=== PATIENT | male | born 1950 | race Caucasian/White ===

== ENCOUNTER → 2016-11-27 | Outpatient (CLI) | payer MEDICARE, BC ==
[2016-11-27 09:30] LABS: CH 31.7; CHCM 33.3; HCT 48.3 % (39.0-53.0); HDW 2.81; HGB 15.8 gm/dL (13.0-17.5); MCH 31.4 pg (25.0-35.0); MCHC 32.7 g/dL (31.0-37.0); MCV 95.9 fL (80.0-100.0); Mean Platelet Volume 7.1; RBC 5.04 m/uL (4.30-5.90); RDW 14.3 % (11.5-15.5); WBC 4.8 k/uL (3.8-10.6)
[2016-11-27 10:33] LABS: Creatinine,Urine Random 87.3 mg/dL
[2016-11-27 10:56] LABS: Calcium 9.8 mg/dL (8.4-10.2); Magnesium 1.9 mg/dL (1.6-2.3); Phosphorous 3.2 mg/dL (2.5-4.5); Potassium 4.5 mmol/L (3.5-5.1)
[2016-11-27 11:06] LABS: % Iron Saturation 32.1 % (20-50)
== END | disposition home or self-care (01) ==
LOC: LABWHC1 08:43
PROVIDERS: ATTEND Nurse Practitioner Family
DX: N18.3 Chronic kidney disease, stage 3 (moderate) (principal); N25.81 Secondary hyperparathyroidism of renal origin; E55.9 Vitamin D deficiency, unspecified; M10.9 Gout, unspecified; D63.1 Anemia in chronic kidney disease
CPT/HCPCS: 36415; 80048; 82306; 82570; 82728; 83540; 83550; 83735; 83970; 84100; 84156; 84550; 85027

== ENCOUNTER 2017-01-24 08:04 | Day surgery (SDC) | payer MEDICARE, BC ==
[2017-01-21 14:21] VITALS: BMI 38.0
[~2017-01-24 08:04] MED LIST: LACTATED RINGERS 1,000 ML IV SCH; LIDOCAINE 1% 20 ML VIAL (10MG/ML) FOR IV START INTRADERMA PRN
[2017-01-24 08:36] VITALS: TEMP 97.1
[2017-01-24] MEDS ORDERED: PROPOFOL 10 MG/ML 20 ML VIAL IV ONE (09:00)
[2017-01-24] MEDS ORDERED: LIDOCAINE 1% INJ 10MG/ML (20 ML MDV) ONE (09:00)
[2017-01-24 09:35] VITALS: RESP 18
--- NOTE | 2017-01-24 09:40 | P.OP ---
Date of Procedure: 01/24/17 Preoperative Diagnosis: Screening for colon cancer Postoperative Diagnosis: Diverticulosis Internal hemorrhoids Procedure(s) Performed: COlonoscopy Implants: Anesthesia: HEATHER Surgeon: Meena Mancera Pathology: none sent Condition: stable Indications for Procedure: Operative Findings: Description of Procedure: The patient was brought to the endoscopy suite and placed in lateral decubitus position. IV sedation was given as per anesthesia team. A timeout was performed to verify correct patient and correct procedure.Perianal examination did not reveal any external hemorrhoids. Digital rectal examination was performed.Nomral prostate. A well-lubricated endoscope was passed per rectally and was gradually advanced beyond the sigmoid colon, splenic flexure, transverse colon, hepatic flexure and cecum. The ileocecal valve was visualized. Extesive colonic diverticulos was noted without any evidence of diverticulitis. Scope was gradually withdrawn inspecting all the mucosal surfaces. NO polyp was seen. Bowel prep was fair. No other polyps or masses noted. Retroflexed in the rectum and grade 2 internal hemorrhoids were noted which was not bleeding at this time. The scope was gradually withdrawn. Patient tolerated the procedure well and was taken to post anesthesia care unit in stable condition.next colonscopy is reccomended at 5 years due to prep Plan - Discharge Summary New Discharge Prescriptions: No Action Pravastatin Sodium [Pravachol] 40 mg PO HS amLODIPine [Norvasc] 5 mg PO DAILY Apixaban [Eliquis] 5 mg PO BID ALPRAZolam [Xanax] 1 mg PO HS Aspirin [Adult Low Dose Aspirin EC] 81 mg PO DAILY Latanoprost Ophth [Xalatan 0.005%] 1 drops BOTH EYES HS ml Metoprolol Tartrate [Lopressor] 12.5 mg PO BID Lisinopril [Zestril] 20 mg PO DAILY Discharge Medication List ALPRAZolam [Xanax] 1 mg PO HS 04/15/15 [History] Apixaban [Eliquis] 5 mg PO BID 04/15/15 [History] Pravastatin Sodium [Pravachol] 40 mg PO HS 04/15/15 [History] amLODIPine [Norvasc] 5 mg PO DAILY 04/15/15 [History] Aspirin [Adult Low Dose Aspirin EC] 81 mg PO DAILY 04/09/16 [History] Latanoprost Ophth [Xalatan 0.005%] 1 drops BOTH EYES HS ml 04/13/16 [Rx] Lisinopril [Zestril] 20 mg PO DAILY 01/21/17 [History] Metoprolol Tartrate [Lopressor] 12.5 mg PO BID 01/21/17 [History]
[2017-01-24 09:53] VITALS: BP 117/79; PULSE 89
== END 2017-01-24 10:15 | disposition home or self-care (01) ==
LOC: ORWHC2ENDO 08:04
PROVIDERS: ATTEND Surgery
DX: Z12.11 Encounter for screening for malignant neoplasm of colon (principal); K57.30 Diverticulosis of large intestine without perforation or abscess without bleeding; K64.1 Second degree hemorrhoids; I10 Essential (primary) hypertension; E78.5 Hyperlipidemia, unspecified; I25.10 Atherosclerotic heart disease of native coronary artery without angina pectoris; I48.91 Unspecified atrial fibrillation; I25.2 Old myocardial infarction; Z79.01 Long term (current) use of anticoagulants; Z79.82 Long term (current) use of aspirin; Z79.899 Other long term (current) drug therapy; Z95.5 Presence of coronary angioplasty implant and graft; Z96.653 Presence of artificial knee joint, bilateral; Z96.643 Presence of artificial hip joint, bilateral; Z80.3 Family history of malignant neoplasm of breast
CPT/HCPCS: G0121; J2001; J2704

== ENCOUNTER 2017-01-28 08:37 | Inpatient (IN) | payer MEDICARE, BC ==
[2017-01-28] MEDS ORDERED: NITROGLYCERIN OINT 1 INCH/GM PACKET TOPICAL STA (08:57)
[2017-01-28] MEDS ORDERED: ASPIRIN 81 MG CHEW PO STA (08:57)
--- NOTE | 2017-01-28 09:00 | ED ---
General Adult HPI - General Chief complaint: Chest Pain Stated complaint: chest pain Time Seen by Provider: 01/28/17 08:45 Source: patient, RN notes reviewed Mode of arrival: wheelchair Limitations: no limitations - History of Present Illness Initial comments: Patient is a pleasant 4 he 7-year-old male presenting to the emergency Department with chest discomfort. Discomfort was noticed when he woke up. Discomfort has now resolved. Patient states there is minimal associated shortness of breath. Patient does admit to having some palpitations. Patient does have a history of atrial fibrillation however has not been enough for many months and was taken off his amiodarone months ago. Patient still takes Eliquis. Patient's blood pressure was elevated this morning, 170/117. Patient has not yet taken his blood pressure medication. - Related Data Home Medications Medication Instructions Recorded Confirmed ALPRAZolam [Xanax] 1 mg PO HS 04/15/15 01/28/17 Apixaban [Eliquis] 5 mg PO BID 04/15/15 01/28/17 Pravastatin Sodium [Pravachol] 40 mg PO HS 04/15/15 01/28/17 amLODIPine [Norvasc] 5 mg PO DAILY 04/15/15 01/28/17 Aspirin [Adult Low Dose Aspirin EC] 81 mg PO DAILY 04/09/16 01/28/17 Lisinopril [Zestril] 20 mg PO DAILY 01/21/17 01/28/17 HYDROcodone/APAP 5-325MG [[place] 1 tab PO Q6H PRN 01/28/17 01/28/17 5-325] Metoprolol Succinate (ER) [Toprol 12.5 mg PO BID 01/28/17 01/28/17 Xl] Previous Rx's Medication Instructions Recorded Latanoprost Ophth [Xalatan 0.005%] 1 drops BOTH EYES HS ml 04/13/16 Allergies Allergy/AdvReac Type Severity Reaction Status Date / Time No Known Allergies Allergy Verified 01/28/17 09:35 Review of Systems ROS Statement: Those systems with pertinent positive or pertinent negative responses have been documented in the HPI. ROS Other: All systems not noted in ROS Statement are negative. Constitutional: Denies: fever Eyes: Denies: eye pain ENT: Denies: ear pain Respiratory: Reports: dyspnea. Denies: cough Cardiovascular: Reports: chest pain, palpitations Endocrine: Denies: fatigue Gastrointestinal: Denies: abdominal pain Genitourinary: Denies: dysuria Musculoskeletal: Denies: back pain Skin: Denies: rash Neurological: Denies: weakness Past Medical History Past Medical History: Atrial Fibrillation, Coronary Artery Disease (CAD), Chest Pain / Angina, Hyperlipidemia, Hypertension, Myocardial Infarction ([place]) Additional Past Medical History / Comment(s): A-FIB CONTROLLED AT THIS TIME Last Myocardial Infarction Date:: 2010 History of Any Multi-Drug Resistant Organisms: None Reported Past Surgical History: Heart Catheterization With Stent, Joint Replacement, Orthopedic Surgery, Tonsillectomy Additional Past Surgical History / Comment(s): BILAT TKA AND DANIELLE. BILAT KNEE SCOPES. COLONOSCOPY Past Anesthesia/Blood Transfusion Reactions: No Reported Reaction Date of Last Stent Placement:: 2010 Past Psychological History: Anxiety Smoking Status: Never smoker Past Alcohol Use History: Occasional Past Drug Use History: None Reported - Past Family History Mother Family Medical History: Cancer General Exam Limitations: no limitations General appearance: alert, in no apparent distress Head exam: Present: atraumatic Eye exam: Present: normal appearance, PERRL ENT exam: Present: normal oropharynx Neck exam: Present: normal inspection Respiratory exam: Present: normal lung sounds bilaterally Cardiovascular Exam: Present: tachycardia, irregular rhythm Expanded Peripheral pulses: 2+: Radial (R), Radial (L), Posterior Tibialis (R), Posterior Tibialis (L) GI/Abdominal exam: Present: soft. Absent: tenderness Extremities exam: Present: normal inspection. Absent: pedal edema, calf tenderness Neurological exam: Present: alert Psychiatric exam: Present: normal affect, normal mood Skin exam: Present: normal color Course Vital Signs 01/28/17 01/28/17 01/28/17 08:47 09:30 09:44 Temperature 97.5 F L 98.8 F Pulse Rate 110 H 100 94 Respiratory 18 18 15 Rate Blood Pressure 162/103 142/60 O2 Sat by Pulse 92 L 98 Oximetry 01/28/17 10:30 Temperature Pulse Rate 101 H Respiratory 20 Rate Blood Pressure 152/67 O2 Sat by Pulse 96 Oximetry EKG Findings - EKG Comments: EKG Findings:: A. fib with RVR, rate 102. QRS 96. QT 354. QTC 461. Left axis. Septal Q waves. No acute ST change. Medical Decision Making - Medical Decision Making Patient reevaluated and resting comfortably in bed. Heart rate between 100-110 and remains in atrial fibrillation. Patient updated on results and plan. Case was discussed in detail with Dr. angelo, who will admit for Dr. cooley - Lab Data Result diagrams: 01/28/17 09:15 01/28/17 09:15 Lab Results 01/28/17 01/28/17 01/28/17 Range/Units 09:15 09:15 09:15 WBC 5.2 (3.8-10.6) k/uL RBC 5.21 (4.30-5.90) m/uL Hgb 16.4 (13.0-17.5) gm/dL Hct 47.5 (39.0-53.0) % MCV 91.2 (80.0-100.0) fL MCH 31.5 (25.0-35.0) pg MCHC 34.6 (31.0-37.0) g/dL RDW 13.6 (11.5-15.5) % Plt Count 131 L (150-450) k/uL Neutrophils % 68 % Lymphocytes % 18 % Monocytes % 8 % Eosinophils % 4 % Basophils % 1 % Neutrophils # 3.5 (1.3-7.7) k/uL Lymphocytes # 0.9 L (1.0-4.8) k/uL Monocytes # 0.4 (0-1.0) k/uL Eosinophils # 0.2 (0-0.7) k/uL Basophils # 0.0 (0-0.2) k/uL PT (9.0-12.0) sec INR (<1.2) APTT (22.0-30.0) sec Sodium 145 (137-145) mmol/L Potassium 4.1 (3.5-5.1) mmol/L Chloride 112 H (98-107) mmol/L Carbon Dioxide 19 L (22-30) mmol/L Anion Gap 14 mmol/L BUN 35 H (9-20) mg/dL Creatinine 1.79 H (0.66-1.25) mg/dL Est GFR (MDRD) Af Amer 46 (>60 ml/min/1.73 sqM) Est GFR (MDRD) Non-Af 38 (>60 ml/min/1.73 sqM) Glucose 95 (74-99) mg/dL Calcium 9.1 (8.4-10.2) mg/dL Magnesium 1.6 (1.6-2.3) mg/dL Total Bilirubin 0.4 (0.2-1.3) mg/dL AST 19 (17-59) U/L ALT 33 (21-72) U/L Alkaline Phosphatase 60 (38-126) U/L Total Creatine Kinase 97 (55-170) U/L CK-MB (CK-2) 1.5 (0.0-2.4) ng/mL CK-MB (CK-2) Rel Index 1.5 Troponin I <0.012 (0.000-0.034) ng/mL NT-Pro-B Natriuret Pep pg/mL Total Protein 7.1 (6.3-8.2) g/dL Albumin 4.2 (3.5-5.0) g/dL 01/28/17 01/28/17 Range/Units 09:15 09:15 WBC (3.8-10.6) k/uL RBC (4.30-5.90) m/uL Hgb (13.0-17.5) gm/dL Hct (39.0-53.0) % MCV (80.0-100.0) fL MCH (25.0-35.0) pg MCHC (31.0-37.0) g/dL RDW (11.5-15.5) % Plt Count (150-450) k/uL Neutrophils % % Lymphocytes % % Monocytes % % Eosinophils % % Basophils % % Neutrophils # (1.3-7.7) k/uL Lymphocytes # (1.0-4.8) k/uL Monocytes # (0-1.0) k/uL Eosinophils # (0-0.7) k/uL Basophils # (0-0.2) k/uL PT 11.3 (9.0-12.0) sec INR 1.1 (<1.2) APTT 26.0 (22.0-30.0) sec Sodium (137-145) mmol/L Potassium (3.5-5.1) mmol/L Chloride (98-107) mmol/L Carbon Dioxide (22-30) mmol/L Anion Gap mmol/L BUN (9-20) mg/dL Creatinine (0.66-1.25) mg/dL Est GFR (MDRD) Af Amer (>60 ml/min/1.73 sqM) Est GFR (MDRD) Non-Af (>60 ml/min/1.73 sqM) Glucose (74-99) mg/dL Calcium (8.4-10.2) mg/dL Magnesium (1.6-2.3) mg/dL Total Bilirubin (0.2-1.3) mg/dL AST (17-59) U/L ALT (21-72) U/L Alkaline Phosphatase (38-126) U/L Total Creatine Kinase (55-170) U/L CK-MB (CK-2) (0.0-2.4) ng/mL CK-MB (CK-2) Rel Index Troponin I (0.000-0.034) ng/mL NT-Pro-B Natriuret Pep 621 pg/mL Total Protein (6.3-8.2) g/dL Albumin (3.5-5.0) g/dL - Radiology Data Radiology results: image reviewed (Chest x-ray shows no acute process) Disposition Clinical Impression: Chest pain, Atrial fibrillation Disposition: ADMITTED IP TO THIS HOSP Referrals: Giovani Doll MD [Primary Care Provider] - 1-2 days Decision Time: 11:36
--- NOTE | 2017-01-28 09:36 | XR ---
EXAMINATION TYPE: XR chest 2V DATE OF EXAM: 01/28/2017 COMPARISON: 04/13/2016 TECHNIQUE: PA and lateral views submitted. HISTORY: Chest pain FINDINGS: The lungs are clear and there is no pneumothorax, pleural effusion, or focal pneumonia. Hypertrophi c and degenerative change of the spine. IMPRESSION: 1. No acute process.
[2017-01-28 09:40] LABS: Basophils % (A) 1 %; CH 31.4; CHCM 34.6; Eosinophils # (A) 0.2 k/uL (0-0.7); Eosinophils % (A) 4 %; HCT 47.5 % (39.0-53.0); HDW 2.96; HGB 16.4 gm/dL (13.0-17.5); Luc % (Auto) 2; Lymphocytes # (A) 0.9 k/uL (1.0-4.8); Lymphocytes % (A) 18 %; MCH 31.5 pg (25.0-35.0); MCHC 34.6 g/dL (31.0-37.0); MCV 91.2 fL (80.0-100.0); Mean Platelet Volume 7.8; Monocytes # (A) 0.4 k/uL (0-1.0); Monocytes % (A) 8 %; Neutrophils # (A) 3.5 k/uL (1.3-7.7); Neutrophils % (A) 68 %; RBC 5.21 m/uL (4.30-5.90); RDW 13.6 % (11.5-15.5); WBC 5.2 k/uL (3.8-10.6)
[2017-01-28 09:44] LABS: Calcium 9.1 mg/dL (8.4-10.2); Magnesium 1.6 mg/dL (1.6-2.3); Potassium 4.1 mmol/L (3.5-5.1); Total Bilirubin 0.4 mg/dL (0.2-1.3); Total Protein 7.1 g/dL (6.3-8.2)
[2017-01-28 09:47] LABS: INR 1.1 (<1.2); Prothrombin Time 11.3 sec (9.0-12.0)
[2017-01-28 10:09] LABS: Creatine Kinase 97 U/L (55-170)
[2017-01-28 10:20] LABS: Creatine Kinase MB 1.5 ng/mL (0.0-2.4); Troponin I <0.012 ng/mL (0.000-0.034)
[2017-01-28] MEDS ORDERED: NITROGLYCERIN SL TABS 0.4 MG TAB SUBLINGUAL PRN (11:36)
[2017-01-28] MEDS: NITROGLYCERIN OINT 1 INCH/GM PACKET TOPICAL SCH ×3 (13:41→22:02)
[2017-01-28] MEDS ORDERED: HYDROcodone/APAP 5-325MG 1 EACH TAB PO PRN (14:32)
--- NOTE | 2017-01-28 14:40 | P.CRDCN ---
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 fib presented to the hospital because he was not feeling well. She woke up this morning complaining of chest discomfort in the mid of the chest without any radiation. He took his blood pressure and heart rate and he found that his heart rate was above 100 beats per minutes. Because he was not feeling well he presented to the emergency room. In the ER, he was in A. fib with heart rate around 100 beats per minutes. Currently he is pain-free. The EKG showed A. fib with nonspecific changes. We don't have cardiac enzymes on him at this point. 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 Last Myocardial Infarction Date:: 2010 History of Any Multi-Drug Resistant Organisms: None Reported Past Surgical History: Heart Catheterization With Stent, Joint Replacement, Orthopedic Surgery, Tonsillectomy Additional Past Surgical History / Comment(s): BILAT TKA AND DANIELLE, BILAT KNEE SCOPES, COLONOSCOPIES Past Anesthesia/Blood Transfusion Reactions: No Reported Reaction Date of Last Stent Placement:: 2010 Smoking Status: Never smoker - Past Family History Mother Family Medical History: Cancer Additional Family Medical History / Comment(s): Mother of breast cancer at the age of 79yrs. Father Additional Family Medical History / Comment(s): Father had heart problems. He had coronary valve replacement. He at the age of 83 yrs. Medications and Allergies Home Medications Medication Instructions Recorded Confirmed Type ALPRAZolam [Xanax] 1 mg PO HS 04/15/15 01/28/17 History Apixaban [Eliquis] 5 mg PO BID 04/15/15 01/28/17 History Pravastatin Sodium [Pravachol] 40 mg PO HS 04/15/15 01/28/17 History amLODIPine [Norvasc] 5 mg PO DAILY 04/15/15 01/28/17 History Aspirin [Adult Low Dose Aspirin EC] 81 mg PO DAILY 04/09/16 01/28/17 History Lisinopril [Zestril] 20 mg PO DAILY 01/21/17 01/28/17 History HYDROcodone/APAP 5-325MG [[place] 1 tab PO Q6H PRN 01/28/17 01/28/17 History 5-325] Metoprolol Succinate (ER) [Toprol 12.5 mg PO BID 01/28/17 01/28/17 History Xl] Allergies Allergy/AdvReac Type Severity Reaction Status Date / Time No Known Allergies Allergy Verified 01/28/17 09:35 Physical Exam Vitals: Vital Signs Temp Pulse Pulse Resp BP BP Pulse Ox 01/28/17 12:00 97.8 F 100 62 18 121/62 123/74 94 L 01/28/17 10:30 101 H 20 152/67 96 01/28/17 09:44 98.8 F 94 15 142/60 01/28/17 09:30 100 18 98 01/28/17 08:47 97.5 F L 110 H 18 162/103 92 L Intake and Output 01/27/17 01/28/17 01/28/17 22:59 06:59 14:59 Output Total 0 Balance 0 Output: Urine 0 Other: # Bowel Movements 0 Weight 127.006 kg Patient Weight 01/29/17 06:59 Weight 127.006 kg - Constitutional General appearance: no acute distress - Respiratory Respiratory: bilateral: diminished - Cardiovascular Rhythm: irregularly irregular Heart sounds: normal: S1, S2 Results 01/28/17 09:15 01/28/17 09:15 Cardiac Enzymes 01/28/17 01/28/17 Range/Units 09:15 09:15 AST 19 (17-59) U/L CK-MB (CK-2) 1.5 (0.0-2.4) ng/mL Troponin I <0.012 (0.000-0.034) ng/mL Coagulation 01/28/17 Range/Units 09:15 PT 11.3 (9.0-12.0) sec APTT 26.0 (22.0-30.0) sec CBC 01/28/17 Range/Units 09:15 WBC 5.2 (3.8-10.6) k/uL RBC 5.21 (4.30-5.90) m/uL Hgb 16.4 (13.0-17.5) gm/dL Hct 47.5 (39.0-53.0) % Plt Count 131 L (150-450) k/uL Comprehensive Metabolic Panel 01/28/17 Range/Units 09:15 Sodium 145 (137-145) mmol/L Potassium 4.1 (3.5-5.1) mmol/L Chloride 112 H (98-107) mmol/L Carbon Dioxide 19 L (22-30) mmol/L BUN 35 H (9-20) mg/dL Creatinine 1.79 H (0.66-1.25) mg/dL Glucose 95 (74-99) mg/dL Calcium 9.1 (8.4-10.2) mg/dL AST 19 (17-59) U/L ALT 33 (21-72) U/L Alkaline Phosphatase 60 (38-126) U/L Total Protein 7.1 (6.3-8.2) g/dL Albumin 4.2 (3.5-5.0) g/dL Current Medications Generic Name Dose Route Start Last Admin Trade Name Freq PRN Reason Stop Dose Admin Hydrocodone Bitart/Acetaminophen 1 each 01/28/17 14:32 [place] 5-325 PO Q6H PRN Pain Amlodipine Besylate 5 mg 01/29/17 09:00 Norvasc PO DAILY [facility] Apixaban 5 mg 01/28/17 21:00 Eliquis PO BID [facility] Aspirin 325 mg 01/29/17 09:00 Aspirin PO DAILY [facility] Latanoprost 1 drops 01/28/17 21:00 Xalatan 0.005% BOTH EYES HS [facility] Lisinopril 20 mg 01/29/17 09:00 Zestril PO DAILY [facility] Metoprolol Succinate 12.5 mg 01/28/17 21:00 Toprol Xl PO BID [facility] Nitroglycerin 1 inch 01/28/17 12:00 01/28/17 13:41 Nitro-Bid Oint TOPICAL 1 inch Q6HR ASHLEY Administration Nitroglycerin 0.4 mg 01/28/17 11:36 Nitrostat SUBLINGUAL Q5M PRN Chest Pain Non-Formulary Medication 1 mg 01/28/17 21:00 Alprazolam [Xanax] PO HS ASHLEY Non-Formulary Medication 81 mg 01/29/17 09:00 Aspirin [Adult Low Dose Aspirin Ec] PO DAILY ASHLEY Pravastatin Sodium 40 mg 01/28/17 21:00 Pravachol PO HS ASHLEY Intake and Output 01/27/17 01/28/17 01/28/17 22:59 06:59 14:59 Output Total 0 Balance 0 Output: Urine 0 Other: # Bowel Movements 0 Weight 127.006 kg Patient Weight 01/29/17 06:59 Weight 127.006 kg 01/28/17 09:15 01/28/17 09:15 Assessment and Plan Plan: This is a pleasant 67-year-old gentleman with a known CAD and prior revascularization as well as paroxysmal A. fib presented to the hospital with chest discomfort and was found to be in A. fib with slightly uncontrolled heart rate. We will follow-up with the serial cardiac enzymes. Obtain an echocardiogram was Doppler. If the enzymes came in to be unremarkable I would proceed with a stress test about any severe underlying CAD. I'm going to resume his anticoagulation as well as metoprolol and continue following up with him.
[2017-01-28 15:44] LABS: Creatine Kinase 90 U/L (55-170)
[2017-01-28 15:58] LABS: Creatine Kinase MB 1.3 ng/mL (0.0-2.4); Troponin I <0.012 ng/mL (0.000-0.034)
--- NOTE | 2017-01-28 17:09 | ECHOF ---
Referral Reason:chest pain MEASUREMENTS -------- HEIGHT: 182.9 cm WEIGHT: 127.0 kg BP: 123/74 IVSd: 1.7 cm (0.6 - 1.1) LVIDd: 4.7 cm (3.9 - 5.3) LVPWd: 1.7 cm (0.6 - 1.1) IVSs: 2.2 cm LVIDs: 3.2 cm LVPWs: 2.2 cm LAESV Index (A-L): 27.27 ml/m Ao Diam: 4.2 cm (2.0 - 3.7) AV Cusp: 2.1 cm (1.5 - 2.6) LA Diam: 5.2 cm (2.7 - 3.8) MV EXCURSION: 21.952 mm (> 18.000) MV EF SLOPE: 144 mm/s (70 - 150) EPSS: 1.0 cm MV E Petros: 0.54 m/s MV DecT: 245 ms MV A Petros: 0.58 m/s MV E/A Ratio: 0.93 FINDINGS -------- Atrial fibrillation. This was a technically adequate study. There is moderate concentric left ventricular hypertrophy. Overall left ventricular systolic function is normal with, an EF between 55 - 60 %. The right ventricle is normal in size and function. Normal LA size by volume 22+/-6 ml/m2. The right atrium is normal in size. There is mild aortic valve sclerosis. Trace amount of aortic regurgitation. There is no evidence of aortic stenosis. The mitral valve leaflets are mildly thickened. There is trace to mild mitral regurgitation. Trace tricuspid regurgitation present. There is no evidence of pulmonary hypertension. The right ventricular systolic pressure, as measured by Doppler, is {RVSP}. The pulmonic valve was not well visualized. The aortic root size is normal. IVC Not well visulized. The pericardium is normal. There is no pericardial effusion. CONCLUSIONS -------- 1. Atrial fibrillation. 2. Trace tricuspid regurgitation present. 3. There is no evidence of pulmonary hypertension. 4. The right ventricular systolic pressure, as measured by Doppler, is {RVSP}. 5. The pulmonic valve was not well visualized. 6. The aortic root size is normal. 7. IVC Not well visulized. 8. There is no pericardial effusion. 9. This was a technically adequate study. 10. There is moderate concentric left ventricular hypertrophy. 11. Overall left ventricular systolic function is normal with, an EF between 55 - 60 %. 12. Normal LA size by volume 22+/-6 ml/m2. 13. There is mild aortic valve sclerosis. 14. Trace amount of aortic regurgitation. 15. The mitral valve leaflets are mildly thickened. 16. There is trace to mild mitral regurgitation. HEAV[employer] EQUIPMENT SUPERVISOR: Nirav Gan RDCS
--- NOTE | 2017-01-28 19:33 | P.HPIM ---
History of Present Illness H&P Date: 01/28/17 Chief Complaint: Chest History of presenting complaint This is a pleasant 67-year-old patient of Dr. Davies. Chronic stable medical conditions include hyperlipidemia, hypertension, chronic kidney disease stage III, obstructive sleep apnea, osteoarthritis. Patient also got atrophic right kidney. Patient's woken up from sleep with some chest pressure going across the chest some shortness of breath some perspiration patient went to take his pulse found to be in atrial fibrillation symptoms last about 10 minutes. Decided to come down to the ER. Patient has a known history of coronary artery disease with stent. Significant past no history: It looks ablation, coronary artery disease with stent, hyperlipidemia, hypertension, chronic kidney disease stage III, SLEEP apnea, lumbar osteoarthritis, gallstones, atrophic right kidney obesity. GEN.: None EYES: None HEENT: None NECK: None RESPIRATORY: As above CARDIOVASCULAR: As above GASTROINTESTINAL: None GENITOURINARY: None MUSCULOSKELETAL: None LYMPHATICS: None HEMATOLOGICAL: None PSYCHIATRY: None NEUROLOGICAL: None Past surgical history: Cardiac cath distended, joint replacement, tonsillectomy, bilateral total knee arthroplasty and total hip with arthroplasty, bilateral knee scopes, colonoscopy. Social history lives with the son, does not smoke, alcohol occasional Family history: Mother of breast cancer age of 79 Home medications: List reviewed in the computer ALLERGIES No ALLERGIES VITAL SIGNS: Temperature 97.5, 110, respiration 18, 162/103, 92% room air GENERAL: Well-built, BMI 38 t, sitting up, comfortable. EYES: Pupils equal. Conjunctiva normal. HEENT: External appearance of nose and ears normal, oral cavity grossly normal. NECK: JVD not raised; masses not palpable. HEART: First and second heart sounds are normal; no edema. LUNGS: Respiratory rate normal; decreased breath sounds though clear. ABDOMEN: Soft, nontender, liver spleen not palpable, no masses palpable. LYMPHATICS: No lymph nodes palpable in the axilla and neck. PSYCH: Alert and oriented x3; mood and affect normal. NEUROLOGICAL: Cranial nerves grossly intact; no facial asymmetry, power and sensation grossly intact. Investigations White count 5.0, bilirubin 16.4, platelet is 131, potassium 4.1, BUN 35, crit 21.79 EKG atrial fibrillation 2-D echo shows moderate concentric left ventricular hypertrophy, EF 55-60% Assessment: -Unstable angina possibly in a patient known coronary artery disease -Coronary artery disease prior history of stent -Paroxysmal atrial fibrillation with recurrent episodes -Hyperlipidemia -Essential hypertension -Chronic kidney disease stage III probably from hypertensive nephrosclerosis -Osteoarthritis of lumbar spine Gallstones asymptomatic Atrophic right kidney history of -Off to sleep and uses CPAP machine Obesity BMI 38 Plan: Patient is better today. Cardiology was consulted. We'll order the stress test. Care was discussed with the patient. Patient already on Eliquis. 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 Last Myocardial Infarction Date:: 2010 History of Any Multi-Drug Resistant Organisms: None Reported Past Surgical History: Heart Catheterization With Stent, Joint Replacement, Orthopedic Surgery, Tonsillectomy Additional Past Surgical History / Comment(s): BILAT TKA AND DANIELLE, BILAT KNEE SCOPES, COLONOSCOPIES Past Anesthesia/Blood Transfusion Reactions: No Reported Reaction Date of Last Stent Placement:: 2010 Smoking Status: Never smoker - Past Family History Mother Family Medical History: Cancer Additional Family Medical History / Comment(s): Mother of breast cancer at the age of 79yrs. Father Additional Family Medical History / Comment(s): Father had heart problems. He had coronary valve replacement. He at the age of 83 yrs. Medications and Allergies Home Medications Medication Instructions Recorded Confirmed Type ALPRAZolam [Xanax] 1 mg PO HS 04/15/15 01/28/17 History Apixaban [Eliquis] 5 mg PO BID 04/15/15 01/28/17 History Pravastatin Sodium [Pravachol] 40 mg PO HS 04/15/15 01/28/17 History amLODIPine [Norvasc] 5 mg PO DAILY 04/15/15 01/28/17 History Aspirin [Adult Low Dose Aspirin EC] 81 mg PO DAILY 04/09/16 01/28/17 History Lisinopril [Zestril] 20 mg PO DAILY 01/21/17 01/28/17 History HYDROcodone/APAP 5-325MG [[place] 1 tab PO Q6H PRN 01/28/17 01/28/17 History 5-325] Metoprolol Succinate (ER) [Toprol 12.5 mg PO BID 01/28/17 01/28/17 History Xl] Allergies Allergy/AdvReac Type Severity Reaction Status Date / Time No Known Allergies Allergy Verified 01/28/17 09:35 Results CBC & Chem 7: 01/28/17 09:15 01/28/17 09:15
[2017-01-28 21:47] LABS: Creatine Kinase 94 U/L (55-170)
[2017-01-28] MEDS: METOPROLOL SUCCINATE (ER) 25 MG TAB.ER.24H PO SCH (21:58)
[2017-01-28] MEDS: PRAVASTATIN SODIUM 40 MG TAB PO SCH (21:58)
[2017-01-28] MEDS: ALPRAZolam 0.5 MG TAB PO SCH (21:58)
[2017-01-28] MEDS: APIXABAN 5 MG TAB PO SCH (21:58)
[2017-01-28 21:59] LABS: Creatine Kinase MB 1.4 ng/mL (0.0-2.4); Troponin I <0.012 ng/mL (0.000-0.034)
[2017-01-28] MEDS: LATANOPROST 0.005% OPHTH DROPS 2.5 ML BTL BOTH EYES SCH (22:02)
[2017-01-29 03:56] LABS: Cholesterol 147 mg/dL (<200); HDL Cholesterol 46 mg/dL (40-60)
[2017-01-29] MEDS: NITROGLYCERIN OINT 1 INCH/GM PACKET TOPICAL SCH (05:00)
[2017-01-29] MEDS ORDERED: REGADENOSON 0.4 MG/5 ML SYRINGE IV ONE (08:00)
[2017-01-29] MEDS ORDERED: AMINOPHYLLINE 500 MG/20 ML VIAL IV PRN (08:00)
[2017-01-29] MEDS ORDERED: ASPIRIN 325 MG TAB PO SCH (09:00)
[2017-01-29] MEDS: METOPROLOL SUCCINATE (ER) 25 MG TAB.ER.24H PO SCH ×2 (09:15→21:53)
[2017-01-29] MEDS: amLODIPine 5 MG TAB PO SCH (09:15)
[2017-01-29] MEDS: LISINOPRIL 20 MG TAB PO SCH (09:15)
[2017-01-29] MEDS: ASPIRIN 81 MG CHEW PO SCH (09:16)
[2017-01-29] MEDS: APIXABAN 5 MG TAB PO SCH ×2 (09:16→21:53)
--- NOTE | 2017-01-29 14:13 | P.PN ---
Subjective Principal diagnosis: Chest discomfort This is a 67-year-old gentleman who follows with a supreme court judge in [facility], he has a known history of coronary artery disease with prior stent placement, hypertension, hyperlipidemia, paroxysmal atrial fibrillation sleep apnea, CKD stage III,. He presented to the hospital with symptoms of chest discomfort, he was found to be in atrial fibrillation with a rapid ventricular response. Echocardiogram with Doppler study was performed which revealed a normal left ventricular systolic function. Blood pressure 120/70 with a heart rate in the 90s. Patient continues to be in atrial fibrillation this morning, he denies any further chest discomfort. We will schedule him for a stress test tomorrow, if negative he may be able to be discharged from cardiology's perspective and follow-up with his supreme court judge. We will discontinue the Nitropaste and decrease his aspirin to 81 mg daily. Objective - Vital Signs Vital signs: Vital Signs Temp 97.8 F 01/29/17 12:00 Pulse 90 01/29/17 12:00 Resp 18 01/29/17 12:00 BP 119/74 01/29/17 12:00 Pulse Ox 94 L 01/29/17 12:00 Intake & Output 01/28/17 01/29/17 01/29/17 18:59 06:59 18:59 Intake Total 550 480 Output Total 0 Balance 0 550 480 Weight 127.006 kg 124.8 kg Intake: Oral 550 480 Output: Urine 0 Other: # Voids 3 1 # Bowel Movements 0 - Exam PHYSICAL EXAMINATION: HEENT: Head is atraumatic, normocephalic. Pupils equal, round. Neck is supple. There is no elevated jugular venous pressure. HEART EXAMINATION: Heart S1 and S2 irregularly irregular CHEST EXAMINATION: Lungs are clear to auscultation and precussion. No chest wall tenderness is noted on palpation or with deep breathing. ABDOMEN: Soft, nontender. Bowel sounds are heard. No organomegaly noted. EXTREMITIES: 2+ peripheral pulses with no evidence of peripheral edema and no calf tenderness noted. NEUROLOGIC patient is awake, alert and oriented -3. . - Labs CBC & Chem 7: 01/28/17 09:15 01/28/17 09:15 Assessment and Plan (1) Paroxysmal a-fib Status: Acute (2) CAD (coronary artery disease) Status: Acute (3) HTN (hypertension) Status: Acute (4) Hyperlipemia Status: Acute (5) Sleep apnea Status: Acute (6) Chest pain Status: Acute Plan: Cardiac enzymes and troponins have been negative 3. Echocardiogram with Doppler study revealed an EF of 55-60%. We will schedule the patient for a Lexiscan stress test tomorrow, if negative he may be able to be discharged from cardiology's perspective can follow-up with his supreme court judge in the [place] area. DNP note has been reviewed, I agree with a documented findings and plan of care. Patient was seen and examined.
[2017-01-29] MEDS: ALPRAZolam 0.5 MG TAB PO SCH (21:53)
[2017-01-29] MEDS: PRAVASTATIN SODIUM 40 MG TAB PO SCH (21:53)
[2017-01-29] MEDS: LATANOPROST 0.005% OPHTH DROPS 2.5 ML BTL BOTH EYES SCH (21:53)
--- NOTE | 2017-01-29 23:34 | P.PN ---
<Amanda Shaffer - Last Filed: 01/29/17 23:34> Progress Note - Text DATE OF SERVICE: 01/29/2017 PRESENTING COMPLAINT: Chest pain pressure INTERVAL HISTORY: 67-year-old patient who was awoken from sleep with some chest pressure some shortness of breath perspiration. On arrival patient was found to be in atrial fibrillation with rapid ventricular response. 02/10/2017: Patient sitting up in bed, no acute distress. Remains in atrial fibrillation. Tolerating his diet, ambulatory within the room. Last BM yesterday. REVIEW OF SYSTEMS: Done for constitutional ,cardiovascular, GI, pulmonary with relevant findings as above. CURRENT MEDICATIONS Wing, Xanax, and off Aminophyllin, Norvasc, Eliquis, aspirin, Zestril, Toprol- XL, Pravachol, PHYSICAL EXAM VITAL SIGNS: Temperature 97.8, pulse 90, respiratory rate 18, blood pressure 119/74, oxygen saturation 94% on room air. GENERAL APPEARANCE: Lying in bed, almond cooperative. EYES: Pupils equal. Conjunctiva normal. NECK: JVD not raised. Mass not palpable. RESPIRATORY: Respiratory effort normal. Lungs managed to auscultation. CARDIOVASCULAR: Irregular rhythm No edema. ABDOMEN: Soft. Liver and spleen not palpable. No tenderness. No mass palpable. PSYCHIATRY: Alert and oriented x3. Mood and affect normal. INVESTIGATIONS: Echocardiogram: Atrial fibrillation, trace tricuspid regurgitation, EF between 55 and 60%, mild aortic valve sclerosis, trace amount of the aortic regurgitation, trace to mild mitral regurgitation. ASSESSMENT: -Unstable angina in a patient with known coronary artery disease, -Coronary artery disease prior history of stent. -Paroxysmal atrial fibrillation with recurrent episodes, controlled -Hyperlipidemia. -Essential hypertension. -Chronic kidney disease stage III probably from hypertensive nephrosclerosis. -Osteoarthritis of lumbar spine. -Gallstones asymptomatic. -Atrophic right kidney history of. -Obstructive sleep apnea and uses a CPAP machine. -Obesity body mass index 38 PLAN: Possible Lexiscan stress test tomorrow if negative cardiology okay with discharge. Discussed with patient plan of care and treatment and he is in agreement. We'll continue to follow closely. REPLENISHMENT ASSOCIATE statement: Patient was seen and examined by nurse practitioner Amanda Shaffer and all elements of the case discussed with attending Dr. Nunes <Aidan Nunes - Last Filed: 01/29/17 23:50> Progress Note - Text Attending note. Date of service-01/29/2017 This patient was seen and examined by me . I reviewed the note of my nurse practitioner, Ms. Shaffer. Discussed with her, additional findings as below. Admitted with chest pain. Troponins were negative. Feels a bit better. On examination: Lungs-decreased breath sounds, cardiovascular-irregular heart sounds, psych AO 3 Investigations: 2-D echo-preserved LV function, troponins 3 negative Assessment and plan: Unstable angina in a patient with known coronary artery disease./Paroxysmal atrial fibrillation Nuclear stress test tomorrow. Care was discussed with the patient. Patient on Eliquis
[2017-01-30] MEDS ORDERED: AMINOPHYLLINE 500 MG/20 ML VIAL IV PRN (06:00)
[2017-01-30] MEDS ORDERED: REGADENOSON 0.4 MG/5 ML SYRINGE IV ONE (06:00)
[2017-01-30 06:36] LABS: Basophils % (A) 1 %; CH 31.1; CHCM 33.7; Eosinophils # (A) 0.3 k/uL (0-0.7); Eosinophils % (A) 5 %; HCT 48.4 % (39.0-53.0); HDW 2.92; HGB 16.5 gm/dL (13.0-17.5); Luc # (Auto) 0.21; Luc % (Auto) 3; Lymphocytes # (A) 1.4 k/uL (1.0-4.8); Lymphocytes % (A) 20 %; MCH 31.7 pg (25.0-35.0); Mean Platelet Volume 7.3; Monocytes # (A) 0.6 k/uL (0-1.0); Monocytes % (A) 8 %; Neutrophils # (A) 4.6 k/uL (1.3-7.7); Neutrophils % (A) 64 %; RDW 13.6 % (11.5-15.5); WBC 7.1 k/uL (3.8-10.6); WBC (Perox) 7.21
[2017-01-30 06:50] LABS: Calcium 9.6 mg/dL (8.4-10.2)
[2017-01-30 08:16] VITALS: RESP 16
[2017-01-30 11:38] VITALS: BP 138/67; TEMP 97.2
[2017-01-30] MEDS: amLODIPine 5 MG TAB PO SCH (11:39)
[2017-01-30] MEDS: APIXABAN 5 MG TAB PO SCH (11:39)
[2017-01-30] MEDS: ASPIRIN 81 MG CHEW PO SCH (11:40)
[2017-01-30] MEDS: LISINOPRIL 20 MG TAB PO SCH (11:40)
[2017-01-30] MEDS: METOPROLOL SUCCINATE (ER) 25 MG TAB.ER.24H PO SCH (11:41)
--- NOTE | 2017-01-30 11:47 | NM ---
EXAMINATION TYPE: NM stress lexiscan cardiolite DATE OF EXAM: 01/30/2017 COMPARISON: 02/12/2013 HISTORY: 67-year-old male atrial fibrillation and chest pain TECHNIQUE: After the intravenous administration of 10.96 mCi Tc 99m Sestamibi - Cardiolite resting S PECT images acquired 45 minutes post injection. The patient received 0.4mg Lexiscan, 25.2 mCi Tc 99m Sestamibi - Stress images obtained [address] injection FINDINGS: The technologist reports PVCs. 2 minutes after injection, chest pain and shortness of breath is repor reza. This resolves 5 minutes after injection. Review of stress and rest SPECT images demonstrates a fixed perfusion defect along the inferior wall that is more pronounced on rest images. Gated analysis demonstrates dyskinetic movement along the inf erior wall. Estimated left ventricular ejection fraction of 45 %. TID calculated at 1.18 which is up per limits of normal. IMPRESSION: 1. Fixed perfusion defect along the inferior wall which is more pronounced on rest images suggesting a component of attenuation artifact. However, given dyskinesia here, an underlying old inferior wall infarct is suspected. No suspicious reversibility seen. 2. Diminished LVEF of 45%.
[2017-01-30 12:16] VITALS: PULSE 151
--- NOTE | 2017-01-30 13:01 | P.PN ---
Subjective Principal diagnosis: Chest discomfort This is a 67-year-old gentleman who follows with a healthcare technician in [facility], he has a known history of coronary artery disease with prior stent placement, hypertension, hyperlipidemia, paroxysmal atrial fibrillation sleep apnea, CKD stage III,. He presented to the hospital with symptoms of chest discomfort, he was found to be in atrial fibrillation with a rapid ventricular response. Echocardiogram with Doppler study was performed which revealed a normal left ventricular systolic function. Blood pressure 120/70 with a heart rate in the 90s. Patient continues to be in atrial fibrillation this morning, he denies any further chest discomfort. We will schedule him for a stress test tomorrow, if negative he may be able to be discharged from cardiology's perspective and follow-up with his healthcare technician. We will discontinue the Nitropaste and decrease his aspirin to 81 mg daily. 01/30/2017 Patient seen and examined this morning, feeling well overall. Underwent a Lexiscan stress test that was negative for any reversible ischemia. From cardiology's perspective he may be able to be discharged home today, he has a follow-up appointment with his healthcare technician out of town on the of this month which he has been instructed to keep. Objective - Vital Signs Vital signs: Vital Signs Temp 97.2 F L 01/30/17 11:37 Pulse 151 H 01/30/17 12:00 Resp 16 01/30/17 11:37 BP 138/67 01/30/17 11:37 Pulse Ox 95 01/30/17 11:37 Intake & Output 01/29/17 01/30/17 01/30/17 18:59 06:59 18:59 Intake Total 1200 10 Balance 1200 10 Weight 123.9 kg Intake: IV 10 Invasive Line 1 10 Oral 1200 Other: # Voids 1 2 # Bowel Movements 0 - Exam PHYSICAL EXAMINATION: HEENT: Head is atraumatic, normocephalic. Pupils equal, round. Neck is supple. There is no elevated jugular venous pressure. HEART EXAMINATION: Heart S1 and S2 irregularly irregular CHEST EXAMINATION: Lungs are clear to auscultation and precussion. No chest wall tenderness is noted on palpation or with deep breathing. ABDOMEN: Soft, nontender. Bowel sounds are heard. No organomegaly noted. EXTREMITIES: 2+ peripheral pulses with no evidence of peripheral edema and no calf tenderness noted. NEUROLOGIC patient is awake, alert and oriented -3. . - Labs CBC & Chem 7: 01/30/17 05:42 01/30/17 05:42 Labs: Abnormal Lab Results - Last 24 Hours (Table) 01/30/17 01/30/17 Range/Units 05:42 05:42 Plt Count 143 L (150-450) k/uL Sodium 146 H (137-145) mmol/L Chloride 111 H (98-107) mmol/L BUN 29 H (9-20) mg/dL Creatinine 1.66 H (0.66-1.25) mg/dL Assessment and Plan (1) Paroxysmal a-fib Status: Acute (2) CAD (coronary artery disease) Status: Acute (3) HTN (hypertension) Status: Acute (4) Hyperlipemia Status: Acute (5) Sleep apnea Status: Acute (6) Chest pain Status: Acute Plan: Cardiac enzymes and troponins have been negative 3. Echocardiogram with Doppler study revealed an EF of 55-60%. Lexiscan stress test negative for any reversible ischemia. Patient may be able to be discharged home today from cardiology's perspective, he has a follow-up appointment with his healthcare technician in the next couple of weeks, which he has been instructed to keep. DNP note has been reviewed, I agree with a documented findings and plan of care. Patient was seen and examined.
--- NOTE | 2017-01-30 14:07 | EST ---
DATE OF SERVICE: 01/30/2017 TYPE OF REPORT: LEXISCAN CARDIOLITE STRESS TEST INDICATION: Chest pain. BASELINE HEART RATE: 105 BASELINE BLOOD PRESSURE: 120/83 MAXIMUM HEART RATE: 124 MAXIMUM BLOOD PRESSURE: 106/64 85% MPHR: 128 100% MPHR: 151 METS: - MAXIMUM STAGE REACHED:- TOTAL EXERCISE TIME: - Baseline EKG revealed atrial fib leftward axis, nonspecific ST-T changes. With the Lexiscan administration, heart rate changed from 105 to 124 beats per minute. Blood pressure changed from 120/83 to about 106/64 and came back to baseline. EKG revealed a nonspecific ST-T changes. EKG remained inconclusive. Patient had transient chest pressure that was resolved quickly. By EKG criteria this is an inconclusive Lexiscan stress test because of resting EKG changes. The nuclear scan results which are more pertinent will be reported by the radiologist. JOSE
[2017-01-30] MEDS ORDERED: APIXABAN 2.5 MG TABLET PO SCH (21:00)
== END 2017-01-30 16:10 | disposition home or self-care (01) | DRG 309 ==
LOC: EC 08:37 → 6SEL 11:36
PROVIDERS: ADMIT Hospitalist; ATTEND Hospitalist
DX: I48.0 Paroxysmal atrial fibrillation (principal); I25.110 Atherosclerotic heart disease of native coronary artery with unstable angina pectoris; N18.3 Chronic kidney disease, stage 3 (moderate); I12.9 Hypertensive chronic kidney disease with stage 1 through stage 4 chronic kidney disease, or unspecified chronic kidney disease; E78.5 Hyperlipidemia, unspecified; G47.33 Obstructive sleep apnea (adult) (pediatric); M19.91 Primary osteoarthritis, unspecified site; I25.2 Old myocardial infarction; H40.9 Unspecified glaucoma; Z68.37 Body mass index [BMI] 37.0-37.9, adult; E66.9 Obesity, unspecified; K80.20 Calculus of gallbladder without cholecystitis without obstruction; M47.816 Spondylosis without myelopathy or radiculopathy, lumbar region; F41.9 Anxiety disorder, unspecified; Z95.5 Presence of coronary angioplasty implant and graft; Z79.01 Long term (current) use of anticoagulants; Z79.82 Long term (current) use of aspirin; Z79.899 Other long term (current) drug therapy; Z87.442 Personal history of urinary calculi; Z96.653 Presence of artificial knee joint, bilateral; Z96.649 Presence of unspecified artificial hip joint
CPT/HCPCS: 36415; 71020; 78452; 80048; 80053; 80061; 82550; 82553; 83735; 83880; 84484; 85025; 85610; 85730; 93005; 93017; 93306; 99285

== ENCOUNTER → 2017-04-08 | Outpatient (CLI) | payer MEDICARE, BC ==
[2017-04-08 09:09] LABS: Appearance,Urine Clear (Clear); Bilirubin,Urine Negative (Negative); Glucose,Urine (UA) Negative (Negative); Ketones,Urine Negative (Negative); Leukocyte Esterase,Urine Negative (Negative); Mucus,Urine Rare /hpf; Nitrite,Urine Negative (Negative); PH, Urine 5.5 (5.0-8.0); Particle Count 531; Protein,Urine 1+ (Negative); RBC,Urine <1 /hpf (0-5); Specific Gravity,Urine 1.008 (1.001-1.035); UA Billing (MACRO vs. MICRO) MICRO; Urobilinogen,Urine <2.0 mg/dL (<2.0); WBC,Urine <1 /hpf (0-5)
[2017-04-08 09:12] LABS: Calcium 9.4 mg/dL (8.4-10.2); Magnesium 1.8 mg/dL (1.6-2.3); Phosphorus 3.2 mg/dL (2.5-4.5); Potassium 4.3 mmol/L (3.5-5.1); Uric Acid 8.1 mg/dL (3.5-8.5)
[2017-04-08 09:16] LABS: Basophils % (A) 1 %; CH 30.7; CHCM 32.6; Eosinophils # (A) 0.3 k/uL (0-0.7); Eosinophils % (A) 5 %; HCT 48.2 % (39.0-53.0); HDW 2.89; HGB 15.4 gm/dL (13.0-17.5); Luc # (Auto) 0.11; Luc % (Auto) 2; Lymphocytes % (A) 20 %; MCH 30.2 pg (25.0-35.0); MCHC 31.9 g/dL (31.0-37.0); MCV 94.5 fL (80.0-100.0); Mean Platelet Volume 7.6; Monocytes # (A) 0.3 k/uL (0-1.0); Monocytes % (A) 7 %; Neutrophils # (A) 3.2 k/uL (1.3-7.7); Neutrophils % (A) 65 %; RDW 13.7 % (11.5-15.5); WBC 4.9 k/uL (3.8-10.6); WBC (Perox) 4.92
[2017-04-08 16:19] LABS: Iron Saturation 26.4 (15.00-50.00)
== END | disposition home or self-care (01) ==
LOC: LABWHC1 08:29
PROVIDERS: ATTEND Internal Medicine Nephrology
DX: E55.9 Vitamin D deficiency, unspecified (principal); E21.3 Hyperparathyroidism, unspecified; D64.9 Anemia, unspecified; M10.9 Gout, unspecified; N39.0 Urinary tract infection, site not specified; N18.3 Chronic kidney disease, stage 3 (moderate)
CPT/HCPCS: 36415; 80048; 81001; 82306; 82728; 83540; 83550; 83735; 83970; 84100; 84550; 85025

== ENCOUNTER → 2017-10-11 | Outpatient (CLI) | payer MEDICARE, BC ==
[2017-10-11 09:22] LABS: Basophils % (A) 1 %; Eosinophils # (A) 0.3 k/uL (0-0.7); Eosinophils % (A) 5 %; HCT 44.5 % (39.0-53.0); HGB 14.9 gm/dL (13.0-17.5); Lymphocytes # (A) 1.1 k/uL (1.0-4.8); Lymphocytes % (A) 19 %; MCH 30.9 pg (25.0-35.0); MCHC 33.5 g/dL (31.0-37.0); MCV 92.1 fL (80.0-100.0); Mean Platelet Volume 7.4; Monocytes # (A) 0.4 k/uL (0-1.0); Monocytes % (A) 7 %; Neutrophils # (A) 3.9 k/uL (1.3-7.7); Neutrophils % (A) 67 %; Platelet Count 134 k/uL (150-450); RBC 4.84 m/uL (4.30-5.90); RDW 13.5 % (11.5-15.5); WBC 5.8 k/uL (3.8-10.6)
[2017-10-11 09:40] LABS: Appearance,Urine Clear (Clear); Bilirubin,Urine Negative (Negative); Blood,Urine Negative (Negative); Color,Urine Yellow; Glucose,Urine (UA) Negative (Negative); Ketones,Urine Negative (Negative); Leukocyte Esterase,Urine Negative (Negative); Mucus,Urine Rare /hpf; Nitrite,Urine Negative (Negative); PH, Urine 5.5 (5.0-8.0); Protein,Urine 1+ (Negative); RBC,Urine <1 /hpf (0-5); Specific Gravity,Urine 1.015 (1.001-1.035); Urobilinogen,Urine <2.0 mg/dL (<2.0); WBC,Urine <1 /hpf (0-5)
[2017-10-11 09:51] LABS: Calcium 9.8 mg/dL (8.4-10.2); Potassium 4.4 mmol/L (3.5-5.1); Uric Acid 8.4 mg/dL (3.5-8.5)
[2017-10-11 16:32] LABS: Iron Saturation 33.33 (15.00-50.00)
[2017-10-11 16:42] LABS: Vitamin D 25 Hydroxy 22.6 ng/mL (30.0-100.0)
[2017-10-11 17:54] LABS: Parathyroid Hormone Intact 41.6 pg/mL (14.0-72.0)
== END | disposition home or self-care (01) ==
LOC: LABWHC1 08:48
PROVIDERS: ATTEND Nurse Practitioner Family
DX: N18.3 Chronic kidney disease, stage 3 (moderate) (principal); D64.9 Anemia, unspecified; M16.9 Osteoarthritis of hip, unspecified; E55.9 Vitamin D deficiency, unspecified
CPT/HCPCS: 36415; 80048; 81001; 82306; 82728; 83540; 83550; 83970; 84550; 85025

== ENCOUNTER → 2017-12-20 | Outpatient (CLI) | payer MEDICARE, BC ==
--- NOTE | 2017-12-24 10:35 | P.ARTDOP ---
Arterial Doppler LOWER EXTREMITY ARTERIAL DOPPLER: DATE OF SERVICE: 12/20/2017 Reason for study: Numbness and tingling in the feet. Doppler waveforms: Multiphasic bilaterally throughout. Pulse volume recording: Normal configuration. Pressure gradients: None. Ankle-brachial indices: Greater than 1 bilaterally. Toe pressures: [] on the right, [] on the left Impression: Normal study.
== END | disposition home or self-care (01) ==
LOC: RADUSWWP 13:21
PROVIDERS: ATTEND Family Medicine
DX: I73.9 Peripheral vascular disease, unspecified (principal)
CPT/HCPCS: 93923

== ENCOUNTER → 2018-01-22 | Outpatient (CLI) | payer MEDICARE, BC ==
[2018-01-22 08:44] LABS: Basophils % (A) 1 %; Eosinophils # (A) 0.3 k/uL (0-0.7); Eosinophils % (A) 6 %; HCT 45.4 % (39.0-53.0); HGB 14.2 gm/dL (13.0-17.5); Lymphocytes % (A) 18 %; MCH 28.9 pg (25.0-35.0); MCHC 31.3 g/dL (31.0-37.0); MCV 92.3 fL (80.0-100.0); Mean Platelet Volume 7.3; Monocytes # (A) 0.5 k/uL (0-1.0); Monocytes % (A) 9 %; Neutrophils # (A) 3.4 k/uL (1.3-7.7); Neutrophils % (A) 64 %; Platelet Count 159 k/uL (150-450); RBC 4.92 m/uL (4.30-5.90); RDW 13.7 % (11.5-15.5); WBC 5.3 k/uL (3.8-10.6)
[2018-01-22 08:46] LABS: Appearance,Urine Clear (Clear); Bilirubin,Urine Negative (Negative); Blood,Urine Negative (Negative); Color,Urine Light Yellow; Glucose,Urine (UA) Negative (Negative); Ketones,Urine Negative (Negative); Leukocyte Esterase,Urine Negative (Negative); Mucus,Urine Rare /hpf; Nitrite,Urine Negative (Negative); PH, Urine 5.5 (5.0-8.0); Protein,Urine 1+ (Negative); Specific Gravity,Urine 1.013 (1.001-1.035); Urobilinogen,Urine <2.0 mg/dL (<2.0); WBC,Urine 2 /hpf (0-5)
[2018-01-22 09:00] LABS: Calcium 9.6 mg/dL (8.4-10.2); Uric Acid 7.7 mg/dL (3.5-8.5)
[2018-01-22 16:05] LABS: Iron Saturation 31.93 (15.00-50.00)
[2018-01-22 16:17] LABS: Vitamin D 25 Hydroxy 46.7 ng/mL (30.0-100.0)
== END | disposition home or self-care (01) ==
LOC: LABWHC1 08:05
PROVIDERS: ATTEND Nurse Practitioner Family
DX: N18.3 Chronic kidney disease, stage 3 (moderate) (principal); D64.9 Anemia, unspecified; E55.9 Vitamin D deficiency, unspecified; E21.3 Hyperparathyroidism, unspecified; N39.0 Urinary tract infection, site not specified; M10.9 Gout, unspecified
CPT/HCPCS: 36415; 80048; 81001; 82306; 82728; 83540; 83550; 83970; 84550; 85025

== ENCOUNTER → 2018-02-20 | Outpatient (CLI) | payer MEDICARE, BC ==
--- NOTE | 2018-02-20 14:45 | CT ---
EXAMINATION TYPE: CT abdomen pelvis wo con DATE OF EXAM: 02/20/2018 COMPARISON: Ultrasound 04/24/2017, CT scan 04/15/2015 HISTORY: Pain CT DLP: 1134 mGycm Automated exposure control for dose reduction was used. TECHNIQUE: Helical acquisition of images was performed from the lung bases through the pelvis. FINDINGS: LUNG BASES: Coronary artery calcification noted. Tiny pericardial effusion or pleural thickening note d. Lung bases demonstrate a 2 mm nodule posterior segment right lower lobe LIVER/GB: Multiple gallstones noted. PANCREAS: No significant abnormality is seen. SPLEEN: Tiny accessory spleen incidentally noted.. ADRENALS: No significant abnormality is seen. KIDNEYS: No hydronephrosis. There are multiple renal lesions on the left which are indeterminate by n oncontrast CT. Particular attention to a lower pole lesion which anterior cortex. Right kidney is mar kedly atrophic but also contains renal lesions which are likely related to renal cysts. No definite u reteral stone. Note is made the pelvis is limited by artifact from patient's hip prostheses. URINARY BLADDER: Obscured by artifact from patient's hip prostheses and only partially visualized. V isualized portions are within normal limits. ADENOPATHY: None visualized. OSSEOUS STRUCTURES: Hypertrophic and degenerative change of the spine. There is a grade 1 spondyloli sthesis of L5 on S1 with bilateral spondylolysis. BOWEL: Nonspecific gas pattern with no diagnostic evidence of obstruction. Changes of colonic divert iculosis with no CT evidence of diverticulitis. Small hiatal hernia noted. OTHER: Atherosclerotic change aorta. IMPRESSION: 1. Cholelithiasis 2. Limited assessment of the pelvis due to severe artifact from the patient's bilateral hip prosthese s 3. Nonspecific gas pattern with no evidence of obstruction. Correlate for diverticulosis of colon 4. No renal calculi or hydronephrosis. There are bilateral hypoattenuating renal lesions which likely represent simple cyst. A lower pole anterior cortex lesion is indeterminate by noncontrast technique and could be correlated with MRI as clinically warranted. 5. There is a 2 mm right lower lobe posterior segment pulmonary nodule BE followed on six-month basis to confirm stability. Findings not seen with certainty on previous exams.
== END | disposition home or self-care (01) ==
LOC: RADCTMAIN 13:04
PROVIDERS: ATTEND Family Medicine
DX: K80.20 Calculus of gallbladder without cholecystitis without obstruction (principal)
CPT/HCPCS: 74176

== ENCOUNTER → 2018-03-07 | Outpatient (CLI) | payer MEDICARE, BC ==
--- NOTE | 2018-03-07 16:40 | US ---
EXAMINATION TYPE: US gallbladder DATE OF EXAM: 03/07/2018 COMPARISON: CLINICAL HISTORY: K80.20 Calculus of gallbladder w/o cholecystitis. Hx of gallstones, NPO EXAM MEASUREMENTS: Liver Length: 20.7 cm Gallbladder Wall: 0.2 cm Right Kidney: 8.4 x 3.5 x 3.7 cm- Estimated size Limited exam due to overlying bowel gas Pancreas: Appears echogenic in appearance. Tail obscured by overlying bowel gas Liver: Heterogenous. Enlarged i size. Gallbladder: Echogenic focus seen with shadow = 1.0 cm Evidence for sonographic Suh's sign: neg CBD: Obscured by overlying bowel gas Right Kidney: Not well visualized due to atrophy. Echogenic in appearance. Multiple cystic appeari ng lesions seen, largest= 3.7 x 3.5 x 3.2 cm. Cortical tissue not well visualized. IMPRESSION: There are gallstones at the gallbladder neck. Intrahepatic bile ducts are not dilated. Ga llbladder is not dilated.
== END ==
LOC: RADUSWWP 15:54
PROVIDERS: ATTEND Family Medicine
DX: K80.20 Calculus of gallbladder without cholecystitis without obstruction (principal)
CPT/HCPCS: 76705

== ENCOUNTER 2018-03-28 11:36 | Day surgery (SDC) | payer MEDICARE, BC ==
[2018-03-20 16:23] VITALS: BMI 37.7
[~2018-03-28 11:36] MED LIST changes: +DEXAMETHASONE SOD PHOSPHATE 10 MG/ML 1 ML VIAL IV ONE; +HEPARIN SODIUM,PORCINE 5,000 UNIT/ML 1 ML VIAL SQ ONE; +HYDROmorphone 1 MG/ML 1 ML SYRINGE IVP PRN; +INDOCYANINE GREEN 25 MG VIAL IV STA; +MIDAZOLAM 2 MG/2 ML VIAL IV PRN; +ONDANSETRON 4 MG/2 ML VIAL IVP ONE; +SCOPOLAMINE 1.5MG/72HR PATCH TRANSDERM ONE
[2018-03-28 13:07] LABS: Basophils # (A) 0.1 k/uL (0-0.2); Basophils % (A) 1 %; Eosinophils # (A) 0.3 k/uL (0-0.7); Eosinophils % (A) 6 %; HCT 42.4 % (39.0-53.0); HGB 14.5 gm/dL (13.0-17.5); Lymphocytes # (A) 0.8 k/uL (1.0-4.8); Lymphocytes % (A) 18 %; MCH 30.3 pg (25.0-35.0); MCHC 34.1 g/dL (31.0-37.0); MCV 88.7 fL (80.0-100.0); Mean Platelet Volume 7.3; Monocytes # (A) 0.5 k/uL (0-1.0); Monocytes % (A) 10 %; Neutrophils # (A) 2.9 k/uL (1.3-7.7); Neutrophils % (A) 63 %; Platelet Count 133 k/uL (150-450); RBC 4.78 m/uL (4.30-5.90); RDW 14.3 % (11.5-15.5); WBC 4.5 k/uL (3.8-10.6)
[2018-03-28 13:17] LABS: Albumin 4.3 g/dL (3.5-5.0); Calcium 9.6 mg/dL (8.4-10.2); Potassium 4.6 mmol/L (3.5-5.1); Total Bilirubin 0.5 mg/dL (0.2-1.3); Total Protein 7.3 g/dL (6.3-8.2)
--- NOTE | 2018-03-28 15:54 | P.GSHP ---
History of Present Illness H&P Date: 03/28/18 CHIEF COMPLAINT: Cholecystitis HISTORY OF PRESENT ILLNESS: The patient is a 68-year-old male who presents with history of epigastric including right upper quadrant abdominal pain. He underwent diagnostic studies for the gallbladder. Separately his clinical picture was consistent with cholecystitis. Now he presents for surgical intervention. PAST MEDICAL HISTORY: Please see list PAST SURGICAL HISTORY: Please see list MEDICATIONS: Please see list ALLERGIES: Denies. SOCIAL HISTORY: No illicit drug use or recent tobacco use FAMILY HISTORY: Pertinent for gallbladder disease REVIEW OF ORGAN SYSTEMS: CONSTITUTIONAL: No reports of fevers or chills. HEENT: Denies any troubles with the vision or hearing. HEMATOLOGIC: No personal or family history of DVTs or pulmonary emboli. PHYSICAL EXAM: VITAL SIGNS: Afebrile vital signs stable GENERAL: Well-developed pleasant male in no acute distress. HEENT: No scleral icterus. Extraocular movements grossly intact. Moist buccal mucosa. NECK: Supple without lymphadenopathy. CHEST: Unlabored respirations. Equal bilateral excursions. CARDIOVASCULAR: Regular rate regular rhythm rhythm. Distal 2+ pulses. ABDOMEN: Soft, nondistended. Tender along the epigastrium and right upper quadrant. MUSCULOSKELETAL: No clubbing, cyanosis, or edema. NEURO : No focal or lateralizing signs. Cranial nerves II-12 within normal limits. PSYCH: Alert and oriented to person, place and time. SKIN: Well perfused. Good skin turgor. ASSESSMENT: 1. Epigastric and right upper quadrant abdominal pain 2. Chronic cholecystitis PLAN: 1. Will need a robotic cholecystectomy possible open. Benefits and risks were described. 2. Heparin for DVT prophylaxis 5000 units. 3. Antibiotic prophylaxis. Past Medical History Past Medical History: Atrial Fibrillation, Coronary Artery Disease (CAD), Chest Pain / Angina, Eye Disorder, Hyperlipidemia, Hypertension, Myocardial Infarction ([place]), Osteoarthritis (OA), Pneumonia, Renal Disease, Sleep Apnea/CPAP /BIPAP Additional Past Medical History / Comment(s): GALLSTONES, HX KIDNEY STONES, bilateral glaucoma, Last Myocardial Infarction Date:: 2010 History of Any Multi-Drug Resistant Organisms: None Reported Past Surgical History: Heart Catheterization With Stent, Hernia Repair, Joint Replacement, Orthopedic Surgery, Tonsillectomy Additional Past Surgical History / Comment(s): BILAT TKA AND DANIELLE, BILAT KNEE SCOPES, COLONOSCOPIES, UMBILICAL HERNIA REPAIR, 2 HEART STENTS Past Anesthesia/Blood Transfusion Reactions: No Reported Reaction Date of Last Stent Placement:: 2010 Smoking Status: Never smoker - Past Family History Mother Family Medical History: Cancer Additional Family Medical History / Comment(s): Mother of breast cancer at the age of 79yrs. Father Additional Family Medical History / Comment(s): Father had heart problems. He had coronary valve replacement. He at the age of 83 yrs. Medications and Allergies Home Medications Medication Instructions Recorded Confirmed Type ALPRAZolam [Xanax] 1 mg PO HS PRN 04/15/15 03/28/18 History Apixaban [Eliquis] 5 mg PO BID 04/15/15 03/28/18 History Pravastatin Sodium [Pravachol] 40 mg PO HS 04/15/15 03/28/18 History amLODIPine [Norvasc] 5 mg PO BID 04/15/15 03/28/18 History Aspirin [Adult Low Dose Aspirin EC] 81 mg PO DAILY 04/09/16 03/28/18 History Latanoprost Ophth [Xalatan 0.005%] 1 drops BOTH EYES HS ml 04/13/16 03/28/18 Rx Lisinopril [Zestril] 20 mg PO BID 01/21/17 03/28/18 History HYDROcodone/APAP 5-325MG [Ringold 1 tab PO Q6H PRN 01/28/17 03/28/18 History 5-325] Nitroglycerin Sl Tabs [Nitrostat] 0.4 mg SUBLINGUAL Q5M PRN #25 tab 01/30/1711/08 Rx Amiodarone [Cordarone] 200 mg PO BID 03/20/18 03/28/18 History Ergocalciferol [Vitamin D2 1 tab PO Q30D 03/20/18 03/28/18 History (DRISDOL)] Ranitidine HCl [Zantac] 150 mg PO BID PRN 03/20/18 03/28/18 History Allergies Allergy/AdvReac Type Severity Reaction Status Date / Time No Known Allergies Allergy Verified 03/28/18 11:59 Surgical - Exam Vital Signs Temp Pulse Resp BP Pulse Ox 98.2 F 60 18 155/87 96 03/28/18 12:12 03/28/18 12:12 03/28/18 12:12 03/28/18 12:12 03/28/18 12:12 Results - Labs 03/28/18 12:50 03/28/18 12:50 Abnormal Lab Results - Last 24 Hours (Table) 03/28/18 03/28/18 Range/Units 12:50 12:50 Plt Count 133 L (150-450) k/uL Lymphocytes # 0.8 L (1.0-4.8) k/uL Sodium 146 H (137-145) mmol/L Chloride 114 H (98-107) mmol/L Carbon Dioxide 21 L (22-30) mmol/L BUN 32 H (9-20) mg/dL Creatinine 1.49 H (0.66-1.25) mg/dL Diabetes panel 03/28/18 Range/Units 12:50 Sodium 146 H (137-145) mmol/L Potassium 4.6 (3.5-5.1) mmol/L Chloride 114 H (98-107) mmol/L Carbon Dioxide 21 L (22-30) mmol/L BUN 32 H (9-20) mg/dL Creatinine 1.49 H (0.66-1.25) mg/dL Glucose 97 (74-99) mg/dL Calcium 9.6 (8.4-10.2) mg/dL AST 25 (17-59) U/L ALT 32 (21-72) U/L Alkaline Phosphatase 62 (38-126) U/L Total Protein 7.3 (6.3-8.2) g/dL Albumin 4.3 (3.5-5.0) g/dL Calcium panel 03/28/18 Range/Units 12:50 Calcium 9.6 (8.4-10.2) mg/dL Albumin 4.3 (3.5-5.0) g/dL Pituitary panel 03/28/18 Range/Units 12:50 Sodium 146 H (137-145) mmol/L Potassium 4.6 (3.5-5.1) mmol/L Chloride 114 H (98-107) mmol/L Carbon Dioxide 21 L (22-30) mmol/L BUN 32 H (9-20) mg/dL Creatinine 1.49 H (0.66-1.25) mg/dL Glucose 97 (74-99) mg/dL Calcium 9.6 (8.4-10.2) mg/dL Adrenal panel 03/28/18 Range/Units 12:50 Sodium 146 H (137-145) mmol/L Potassium 4.6 (3.5-5.1) mmol/L Chloride 114 H (98-107) mmol/L Carbon Dioxide 21 L (22-30) mmol/L BUN 32 H (9-20) mg/dL Creatinine 1.49 H (0.66-1.25) mg/dL Glucose 97 (74-99) mg/dL Calcium 9.6 (8.4-10.2) mg/dL Total Bilirubin 0.5 (0.2-1.3) mg/dL AST 25 (17-59) U/L ALT 32 (21-72) U/L Alkaline Phosphatase 62 (38-126) U/L Total Protein 7.3 (6.3-8.2) g/dL Albumin 4.3 (3.5-5.0) g/dL
[2018-03-28] MEDS ORDERED: MIDAZOLAM 2 MG/2 ML VIAL ONE (16:28)
[2018-03-28] MEDS ORDERED: ROCURONIUM BROMIDE 10 MG/ML 10 ML VIAL IV ONE (16:28)
[2018-03-28] MEDS ORDERED: NEOSTIGMINE 1 MG/ML 10 ML VIAL ONE (16:28)
[2018-03-28] MEDS ORDERED: PROPOFOL 10 MG/ML 20 ML VIAL IV ONE (16:28)
[2018-03-28] MEDS ORDERED: fentaNYL (PF) 50 MCG/ML 2 ML AMP ONE (16:28)
[2018-03-28] MEDS ORDERED: LIDOCAINE 1% INJ 10MG/ML (20 ML MDV) ONE (16:28)
[2018-03-28] MEDS ORDERED: GLYCOPYRROLATE 0.2 MG/ML 2 ML VIAL ONE (16:28)
[2018-03-28] MEDS ORDERED: BUPIVACAIN-EPI 0.5%-1:200,000 30 ML VIAL SQ ONE (16:54)
[2018-03-28] MEDS ORDERED: LACTATED RINGERS 1,000 ML IV ONE (18:17)
[2018-03-28 18:40] VITALS: RESP 16; TEMP 97.8
[2018-03-28] MEDS ORDERED: HYDROcodone/APAP 5-325MG 1 EACH TAB PO ONE (19:56)
[2018-03-28 20:01] VITALS: PULSE 70
[2018-03-28] MEDS ORDERED: TAMSULOSIN 0.4 MG CAP.ER.24H PO STA (20:10)
[2018-03-28 20:15] VITALS: BP 113/69
--- NOTE | 2018-03-28 20:18 | P.OP ---
Date of Procedure: 03/28/18 Description of Procedure: SURGEON: THERESA MCCULLOUGH MD PREOPERATIVE DIAGNOSES: 1. Chronic cholecystitis 2. Morbid obesity next calories, BMI 37.7 3. Ischemic cardiomyopathy 4. History of angina 5. Hypertensive heart disease 6. Obstructive sleep apnea 7. Coronary artery disease 8. Chronic atrial fibrillation 9. Chronic anticoagulant therapy 10. Hyperlipidemia POSTOPERATIVE DIAGNOSES: 1. Chronic cholecystitis 2. Morbid obesity next calories, BMI 37.7 3. Ischemic cardiomyopathy 4. History of angina 5. Hypertensive heart disease 6. Obstructive sleep apnea 7. Coronary artery disease 8. Chronic atrial fibrillation 9. Chronic anticoagulant therapy 10. Hyperlipidemia OPERATION: Robotic-assisted da Neva Xi laparoscopic cholecystectomy, multiport with FIREFLY ESTIMATED BLOOD LOSS: 10 mL. SPECIMENS REMOVED: Gallbladder. COMPLICATIONS: None. OPERATIVE FINDINGS: 1. Chronic cholecystitis 2. Highly redundant hepatic flexure extending to the diaphragm INDICATIONS: The patient is a 68-year-old female who presents with cholelcystitis. Surgical intervention with a laparoscopic cholecystectomy was described at length including injury to the biliary tree, bleeding, infection, need for further surgery. Informed consent was obtained. Robotic assisted laparoscopic approach was described. Benefits and risks of the procedure including but not limited to bleeding, infection, injury to the biliary tree was described. Informed consent was obtained. DESCRIPTION OF PROCEDURE: Patient was brought to the operating room, placed in supine position. After general induction, the abdomen had been prepped and draped in standard sterile fashion. The robotic da Neva XI system was primed. After a timeout protocol was performed, the patient had been prepped and draped in standard sterile fashion. The patient was injected with indocyanine green. A 5 mm 0 degrees laparoscopic trocar entry was performed along the left upper quadrant. The abdomen insufflated to 15 mmHg pressure which she tolerated well. Diagnostic laparoscopy demonstrated no injury to bowel viscera or mesentery. The liver surface was unremarkable. Next, two 8 mm robotic ports were placed along the right upper abdomen. The camera 8-mm port was maintained along the epigastrium. Another 8 mm port was placed along the left upper abdominal wall after exchanging the 5 mm port. Please note that the ports were placed at least 10 to 15 cm away from the target anatomy of the gallbladder. The robot was docked along the left lateral abdomen. The patient was repositioned in reverse Trendelenburg position. Using a grasper for arm 3, a grasper for arm 4, including hook cautery for arm 1 , the robotic system was docked and primed as described. Instruments were interchanged by the visitor services assistant including hook cautery, Bovie cautery and clip appliers. The patient had a highly redundant hepatic flexure obscuring the view of the liver and gallbladder. Additionally with the body habitus and moderate central adiposity, difficulty in obtaining clear view of the gallbladder increased complexity of this case over 30 minutes. He was placed in steep Trendelenburg position of 16-20 using a 0 robotic camera. I had sat at the console. Adhesions were identified along the infundibulum of the gallbladder and addressed using hook cautery. The gallbladder fundus was retracted over the dome of the liver. Initial attention was brought to the infundibulum which was gently retracted in the inferior lateral approach. As the cystic structures were obscured by his intra-abdominal fat, a dome down technique was performed using Bovie cautery without decompression of the gallbladder. FIREFLY was used to identify the cystic structures. The cystic duct was identified. Large PLASTIC clips were used throughout the entire case. Using a clip supervisor finishing department, 2 clips were placed proximally, and 1 clip was placed distally along the cystic duct and divided using a vessel sealer. Again care was taken to avoid any injury to the biliary tree. The cystic artery and attachments were addressed using vessel sealer. Electro-Bovie cautery was used to remove the gallbladder from the hepatic fossa. Hemostasis was checked and found to be adequate. The robot was undocked. I re-scrubbed into the case. Using a 10 mm Endo Catch bag via the left upper quadrant incision, the specimen was removed from the abdominal cavity. All pneumoperitoneum instruments were evacuated from the abdominal cavity. The incisions were reapproximated using 4-0 Monocryl in an interrupted subcuticular fashion. Fascial defect of the left upper quadrant was closed using 0 Vicryl. Please note along the trocar sites, local anesthetic was placed as a field block prior to insertion of all instruments. Liquid glue was applied to the skin. At the end of the procedure needle, sponge, and instrument count had been verified correct by the rn neurosurgical. The patient was transferred to postanesthesia care unit in stable condition. Intraoperative films were shared with the patient's family who were very pleased with the level of care. Console time 51 minutes Plan - Discharge Summary New Discharge Prescriptions: New HYDROcodone/APAP 5-325MG [[place] 5-325] 1 tab PO Q4HR PRN 3 Days #18 tab PRN Reason: Pain No Action Pravastatin Sodium [Pravachol] 40 mg PO HS amLODIPine [Norvasc] 5 mg PO BID Apixaban [Eliquis] 5 mg PO BID ALPRAZolam [Xanax] 1 mg PO HS PRN PRN Reason: Anxiety Aspirin [Adult Low Dose Aspirin EC] 81 mg PO DAILY Latanoprost Ophth [Xalatan 0.005%] 1 drops BOTH EYES HS ml Lisinopril [Zestril] 20 mg PO BID HYDROcodone/APAP 5-325MG [[place] 5-325] 1 tab PO Q6H PRN PRN Reason: Pain Nitroglycerin Sl Tabs [Nitrostat] 0.4 mg SUBLINGUAL Q5M PRN #25 tab PRN Reason: Chest Pain Ranitidine HCl [Zantac] 150 mg PO BID PRN PRN Reason: GERD Ergocalciferol [Vitamin D2 (DRISDOL)] 1 tab PO Q30D Amiodarone [Cordarone] 200 mg PO BID Discharge Medication List ALPRAZolam [Xanax] 1 mg PO HS PRN 04/15/15 [History] Apixaban [Eliquis] 5 mg PO BID 04/15/15 [History] Pravastatin Sodium [Pravachol] 40 mg PO HS 04/15/15 [History] amLODIPine [Norvasc] 5 mg PO BID 04/15/15 [History] Aspirin [Adult Low Dose Aspirin EC] 81 mg PO DAILY 04/09/16 [History] Latanoprost Ophth [Xalatan 0.005%] 1 drops BOTH EYES HS ml 04/13/16 [Rx] Lisinopril [Zestril] 20 mg PO BID 01/21/17 [History] HYDROcodone/APAP 5-325MG [[place] 5-325] 1 tab PO Q6H PRN 01/28/17 [History] Nitroglycerin Sl Tabs [Nitrostat] 0.4 mg SUBLINGUAL Q5M PRN #25 tab 01/30/17 [Rx ] Amiodarone [Cordarone] 200 mg PO BID 03/20/18 [History] Ergocalciferol [Vitamin D2 (DRISDOL)] 1 tab PO Q30D 03/20/18 [History] Ranitidine HCl [Zantac] 150 mg PO BID PRN 03/20/18 [History] HYDROcodone/APAP 5-325MG [[place] 5-325] 1 tab PO Q4HR PRN 3 Days #18 tab [Rx] Follow up Appointment(s)/Referral(s): Theresa Mccullough MD [STAFF PHYSICIAN] - 03/31/18 Patient Instructions/Handouts: *Surgery [facility] - (Anesthesia) Discharge Instructions Outpatient Surgery, Laparoscopic Cholecystectomy (DC) Activity/Diet/Wound Care/Special Instructions: No bathtub soaks. October shower. Low fat diet. [facility] SaturdayMARCH 31 Discharge Disposition: HOME SELF-CARE
== END 2018-03-28 20:44 | disposition home or self-care (01) ==
LOC: OR 11:36
PROVIDERS: ATTEND Surgery Plastic and Reconstructive Surgery
DX: K80.10 Calculus of gallbladder with chronic cholecystitis without obstruction (principal); E66.01 Morbid (severe) obesity due to excess calories; Z68.37 Body mass index [BMI] 37.0-37.9, adult; K82.8 Other specified diseases of gallbladder; K21.9 Gastro-esophageal reflux disease without esophagitis; Q43.8 Other specified congenital malformations of intestine; I25.5 Ischemic cardiomyopathy; I25.119 Atherosclerotic heart disease of native coronary artery with unspecified angina pectoris; I13.10 Hypertensive heart and chronic kidney disease without heart failure, with stage 1 through stage 4 chronic kidney disease, or unspecified chronic kidney disease; N18.9 Chronic kidney disease, unspecified; Z95.5 Presence of coronary angioplasty implant and graft; E78.5 Hyperlipidemia, unspecified; I48.2 Chronic atrial fibrillation; Z79.01 Long term (current) use of anticoagulants; G47.33 Obstructive sleep apnea (adult) (pediatric); Z99.89 Dependence on other enabling machines and devices; H40.9 Unspecified glaucoma; M19.90 Unspecified osteoarthritis, unspecified site; F41.9 Anxiety disorder, unspecified; I25.2 Old myocardial infarction; Z87.442 Personal history of urinary calculi; Z79.82 Long term (current) use of aspirin; Z79.899 Other long term (current) drug therapy
CPT/HCPCS: 88304; 80053; 85025; 47562; J2250; J1644; J1100; J2710; J0690; J2405; J2001; J3010; J1170; J2704

== ENCOUNTER → 2018-10-30 | Outpatient (CLI) | payer MEDICARE, BC ==
[2018-10-30 07:55] LABS: Basophils # (A) 0.1 k/uL (0-0.2); Basophils % (A) 1 %; Eosinophils # (A) 0.4 k/uL (0-0.7); Eosinophils % (A) 6 %; HCT 45.1 % (39.0-53.0); HGB 14.8 gm/dL (13.0-17.5); Lymphocytes # (A) 1.1 k/uL (1.0-4.8); Lymphocytes % (A) 17 %; MCH 30.9 pg (25.0-35.0); MCHC 32.7 g/dL (31.0-37.0); MCV 94.4 fL (80.0-100.0); Mean Platelet Volume 7.2; Monocytes # (A) 0.5 k/uL (0-1.0); Monocytes % (A) 8 %; Neutrophils # (A) 4.3 k/uL (1.3-7.7); Neutrophils % (A) 66 %; Platelet Count 144 k/uL (150-450); RBC 4.78 m/uL (4.30-5.90); RDW 13.9 % (11.5-15.5); WBC 6.5 k/uL (3.8-10.6)
[2018-10-30 08:21] LABS: Appearance,Urine Clear (Clear); Bilirubin,Urine Negative (Negative); Blood,Urine Trace (Negative); Color,Urine Light Yellow; Glucose,Urine (UA) Negative (Negative); Ketones,Urine Negative (Negative); Leukocyte Esterase,Urine Negative (Negative); Mucus,Urine Rare /hpf; Nitrite,Urine Negative (Negative); PH, Urine 5.5 (5.0-8.0); Protein,Urine 1+ (Negative); RBC,Urine 1 /hpf (0-5); Specific Gravity,Urine 1.016 (1.001-1.035); Squamous Epithelial Cell,Urine <1 /hpf (0-4); Urobilinogen,Urine <2.0 mg/dL (<2.0); WBC,Urine 3 /hpf (0-5)
[2018-10-30 11:54] LABS: Albumin 4.6 g/dL (3.80-4.90); Anion Gap 10.4 mmol/L (4.00-12.00); Calcium 9.4 mg/dL (8.7-10.3); Carbon Dioxide 20.6 mmol/L (21.6-31.8); Magnesium 1.8 mg/dL (1.5-2.4); Phosphorus 3.5 mg/dL (2.4-5.1); Uric Acid 7.5 mg/dL (3.7-8.7)
[2018-10-30 12:56] LABS: Creatinine,Urine Random 99.1 mg/dL
[2018-10-30 13:01] LABS: Total Protein,Urine Random 51.7 mg/dL (0.0-13.5)
== END ==
LOC: LABWHC1 07:14
PROVIDERS: ATTEND Internal Medicine Nephrology
DX: N18.3 Chronic kidney disease, stage 3 (moderate) (principal); N25.81 Secondary hyperparathyroidism of renal origin
CPT/HCPCS: 36415; 80048; 81001; 82040; 82570; 82728; 83735; 83970; 84100; 84156; 84550; 85025

== ENCOUNTER 2018-12-12 19:59 | Emergency (ER) | payer MEDICARE, BC ==
[2018-12-12 20:04] VITALS: BP 142/74; PULSE 55; RESP 20; TEMP 98.4
--- NOTE | 2018-12-12 21:00 | ED ---
General Adult HPI - General Chief complaint: Skin/Abscess/Foreign Body Stated complaint: Fall,arm injury Time Seen by Provider: 12/12/18 20:17 Source: patient, family Mode of arrival: ambulatory Limitations: no limitations - History of Present Illness Initial comments: Patient is a 68-year-old male presenting to emergency Department with complaints of right lower arm swelling 2 days. Patient states he had a fall 5 days ago onto his right elbow. He did see an orthopedic who determined there was no fractures on his elbow. Patient is on Eliquis. Patient has significant bruising of his right upper and lower arm and the last 2 days patient has had increase in swelling into his right hand. Patient has small abrasions on his arm and was worried that he is developing an infection. Patient denies any discharge from the abrasions, fever, chills, erythema. Patient has no other complaints at this time. - Related Data Home Medications Medication Instructions Recorded Confirmed ALPRAZolam [Xanax] 1 mg PO HS PRN 04/15/15 03/28/18 Apixaban [Eliquis] 5 mg PO BID 04/15/15 03/28/18 Pravastatin Sodium [Pravachol] 40 mg PO HS 04/15/15 03/28/18 amLODIPine [Norvasc] 5 mg PO BID 04/15/15 03/28/18 Aspirin [Adult Low Dose Aspirin EC] 81 mg PO DAILY 04/09/16 03/28/18 Lisinopril [Zestril] 20 mg PO BID 01/21/17 03/28/18 HYDROcodone/APAP 5-325MG [[place] 1 tab PO Q6H PRN 01/28/17 03/28/18 5-325] Amiodarone [Cordarone] 200 mg PO BID 03/20/18 03/28/18 Ergocalciferol [Vitamin D2 1 tab PO Q30D 03/20/18 03/28/18 (DRISDOL)] Ranitidine HCl [Zantac] 150 mg PO BID PRN 03/20/18 03/28/18 Previous Rx's Medication Instructions Recorded Latanoprost Ophth [Xalatan 0.005%] 1 drops BOTH EYES HS ml 04/13/16 Nitroglycerin Sl Tabs [Nitrostat] 0.4 mg SUBLINGUAL Q5M PRN #25 tab 01/30/17 HYDROcodone/APAP 5-325MG [[place] 1 tab PO Q4HR PRN 3 Days #18 tab 03/28/18 5-325] Allergies Allergy/AdvReac Type Severity Reaction Status Date / Time No Known Allergies Allergy Verified 12/12/18 20:03 Review of Systems ROS Statement: Those systems with pertinent positive or pertinent negative responses have been documented in the HPI. ROS Other: All systems not noted in ROS Statement are negative. 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 Last Myocardial Infarction Date:: 2010 History of Any Multi-Drug Resistant Organisms: None Reported Past Surgical History: Cholecystectomy, Heart Catheterization With Stent, Joint Replacement, Orthopedic Surgery, Tonsillectomy Additional Past Surgical History / Comment(s): BILAT TKA AND DANIELLE, BILAT KNEE SCOPES, COLONOSCOPIES Past Anesthesia/Blood Transfusion Reactions: No Reported Reaction Date of Last Stent Placement:: 2010 Past Psychological History: No Psychological Hx Reported Smoking Status: Never smoker Past Alcohol Use History: Occasional Past Drug Use History: None Reported - Past Family History Mother Family Medical History: Cancer Additional Family Medical History / Comment(s): Mother of breast cancer at the age of 79yrs. Father Additional Family Medical History / Comment(s): Father had heart problems. He had coronary valve replacement. He at the age of 83 yrs. General Exam - General Exam Comments Initial Comments: GENERAL: Well-appearing, well-nourished and in no acute distress. HEAD: Atraumatic, normocephalic. EYES: Pupils equal round and reactive to light, extraocular movements intact, sclera anicteric, conjunctiva are normal. ENT: TMs normal, nares patent, oropharynx clear without exudates. Moist mucous membranes. NECK: Normal range of motion, supple without lymphadenopathy or JVD. LUNGS: Breath sounds clear to auscultation bilaterally and equal. No wheezes r ales or rhonchi. HEART: Regular rate and rhythm without murmurs, rubs or gallops. ABDOMEN: Soft, nontender, normoactive bowel sounds. No guarding, no rebound. No masses appreciated. : Deferred EXTREMITIES: Patient has very large area of ecchymosis on the right upper arm extending into the right elbow and right lower arm area. Moderate amount of edema of the right lower arm and to right hand. Pulses are normal and equal bilateral. There is a small abrasion on the dorsal aspect of the right forearm. No signs of infection. Patient has decreased bowel extension and flexion. Range of motion of the right wrist and shoulder are within normal limits. NEUROLOGICAL: Cranial nerves II through XII grossly intact. Normal speech, normal gait. PSYCH: Normal mood, normal affect. SKIN: Warm, Dry, normal turgor, no rashes or lesions noted. Limitations: no limitations Course Vital Signs 12/12/18 20:01 Temperature 98.4 F Pulse Rate 55 L Respiratory 20 Rate Blood Pressure 142/74 O2 Sat by Pulse 97 Oximetry Medical Decision Making - Medical Decision Making Patient is a 68-year-old male with complaints of an increase in a right arm swelling 2 days. Patient fell onto his right elbow proximally 5 days ago. There is no fractures in his right elbow. Patient has significant bruising and swelling of his right upper and lower arm. Patient states the swelling into his right hand increased last 2 days and he has abrasions on his right forearm and he was worried he was developing an infection. Patient is on a eliquis. Patient has no signs of infection. Patient's abrasions were dressed and bandaged. It was discussed with the patient that his increase in swelling into his right hand is most likely related to the large area of bruising/injury on his right arm. Patient was counseled on elevating his right arm and doing hand pumps to increase circulation and decrease the swelling. Patient will follow up with his orthopedic next week. Patient will be discharged home and he is okay with this plan. Discussed with Dr. Mckniley. Disposition Clinical Impression: Contusion of right elbow and forearm, Traumatic ecchymosis of multiple sites of right upper arm, Abrasion of arm, right Disposition: HOME SELF-CARE Condition: Stable Instructions (If sedation given, give patient instructions): Contusion in Adults (ED) Additional Instructions: Please return to the Emergency Department if symptoms worsen or any other concerns. Follow up with PCP and/or ortho as discussed. Is patient prescribed a controlled substance at d/c from ED?: No Referrals: Giovani Doll MD [Primary Care Provider] - 1-2 days
== END 2018-12-12 21:12 | disposition home or self-care (01) ==
LOC: EC 19:59
DX: S50.11XA Contusion of right forearm, initial encounter (principal); I48.91 Unspecified atrial fibrillation; I25.119 Atherosclerotic heart disease of native coronary artery with unspecified angina pectoris; E78.5 Hyperlipidemia, unspecified; I25.2 Old myocardial infarction; G47.33 Obstructive sleep apnea (adult) (pediatric); Z99.89 Dependence on other enabling machines and devices; I12.9 Hypertensive chronic kidney disease with stage 1 through stage 4 chronic kidney disease, or unspecified chronic kidney disease; N18.3 Chronic kidney disease, stage 3 (moderate); Z79.02 Long term (current) use of antithrombotics/antiplatelets; Z79.82 Long term (current) use of aspirin; Z79.899 Other long term (current) drug therapy; Z95.5 Presence of coronary angioplasty implant and graft; Z96.653 Presence of artificial knee joint, bilateral; W19.XXXA Unspecified fall, initial encounter
CPT/HCPCS: 99283

== ENCOUNTER → 2019-03-12 | Outpatient (CLI) | payer MEDICARE, BC ==
--- NOTE | 2019-03-12 13:38 | US ---
EXAMINATION TYPE: US venous doppler duplex LE LT DATE OF EXAM: 03/12/2019 1:21 PM COMPARISON: NONE CLINICAL HISTORY: R22.42 SWELLING,MASS AND LUMP LT LOWER LIMB. Patient states dropping a box on left leg x 10 days. Swelling. No hx blood clots. On blood thinners. SIDE PERFORMED: Left TECHNIQUE: The lower extremity deep venous system is examined utilizing real time linear array sonog [place] with graded compression, doppler sonography and color-flow sonography. VESSELS IMAGED: External Iliac Vein (EIV) Common Femoral Vein Deep Femoral Vein Greater Saphenous Vein * Femoral Vein Popliteal Vein Small Saphenous Vein * Proximal Calf Veins (* superficial vessels) Left Leg: Negative for DVT IMPRESSION: No evidence for DVT at this time.
== END | disposition home or self-care (01) ==
LOC: RADUSWWP 12:54
PROVIDERS: ATTEND Family Medicine
DX: R22.42 Localized swelling, mass and lump, left lower limb (principal)

== ENCOUNTER 2019-05-06 21:16 | Observation (INO) | payer MEDICARE, BC ==
[2019-05-06] MEDS ORDERED: ASPIRIN 81 MG PO STA (21:46)
[2019-05-06] MEDS ORDERED: SODIUM CHLORIDE 0.9% 500 ML 500 ML IV STA (21:46)
--- NOTE | 2019-05-06 22:06 | XR ---
EXAMINATION TYPE: XR chest 2V DATE OF EXAM: 05/06/2019 COMPARISON: 01/28/2017 HISTORY: Chest pain TECHNIQUE: Frontal and lateral views of the chest are obtained. FINDINGS: There is no heart failure nor confluent pneumonic infiltrate. There is some linear density at the right lung base. Right diaphragm is slightly elevated. There are chest leads. IMPRESSION: Minimal atelectasis right lung base increased compared to last exam. Normal heart.
[2019-05-06 22:10] LABS: Basophils # (A) 0.2 k/uL (0-0.2); Basophils % (A) 3 %; Eosinophils # (A) 0.3 k/uL (0-0.7); Eosinophils % (A) 5 %; HCT 43.8 % (39.0-53.0); HGB 13.6 gm/dL (13.0-17.5); Lymphocytes # (A) 1.3 k/uL (1.0-4.8); Lymphocytes % (A) 22 %; MCH 29.1 pg (25.0-35.0); MCV 93.7 fL (80.0-100.0); Mean Platelet Volume 7.2; Monocytes # (A) 0.5 k/uL (0-1.0); Monocytes % (A) 8 %; Neutrophils # (A) 3.5 k/uL (1.3-7.7); Neutrophils % (A) 60 %; Platelet Count 123 k/uL (150-450); RBC 4.67 m/uL (4.30-5.90); RDW 13.6 % (11.5-15.5); WBC 5.8 k/uL (3.8-10.6)
[2019-05-06 22:21] LABS: Partial Thromboplastin Time 27.3 sec (22.0-30.0); Prothrombin Time 10.9 sec (9.0-12.0)
[2019-05-06 22:24] LABS: Albumin 4.7 g/dL (3.5-5.0); Calcium 9.7 mg/dL (8.4-10.2); Magnesium 2.1 mg/dL (1.6-2.3); Potassium 4.4 mmol/L (3.5-5.1); Total Bilirubin 0.4 mg/dL (0.2-1.3); Total Protein 7.7 g/dL (6.3-8.2)
--- NOTE | 2019-05-06 23:44 | ED ---
General Adult HPI - General Source: patient, RN notes reviewed, old records reviewed Mode of arrival: wheelchair Limitations: no limitations <Kevin Elder - Last Filed: 05/07/19 00:07> <Paige Pham - Last Filed: 05/08/19 00:21> - General Chief complaint: Chest Pain Stated complaint: Chest Pain/SOB Time Seen by Provider: 05/06/19 21:39 - History of Present Illness Initial comments: 69-year-old male patient past history significant for coronary artery disease with stent placement approximately 10 years ago, chronic kidney disease, paroxysmal atrial fibrillation anticoagulated on eliquis presents ED chief complaint chest pain. Patient reports this chest pain began approximately 8:15. Last approximately 5 minutes. With her left first toe region, had some paresthesias down the left arm. Patient reports that he had some associated shortness of breath that occurred for approximately an hour. Is pain free at this time. Systemic: Pt denies fatigue, fever/chills, rash. Pt denies weakness, night sweats, weight loss. Neuro: Pt denies headache, visual disturbances, syncope or pre-syncope. HEENT: Pt denies ocular discharge or irritation, otalgia, rhinorrhea, pharyngitis or notable lymphadenopathy. Cardiopulmonary: Pt denies heart palpitations, dyspnea on exertion. Abdominal/GI: Pt denies abdominal pain, n/v/d. : Pt denies dysuria, burning w/ urination, frequency/urgency. Denies new onset urinary or bowel incontinence. MSK: Pt denies myalgia, loss of strength or function in extremities. Neuro: Pt denies new onset weakness, paresthesias. (Kevin Elder) - Related Data Home Medications Medication Instructions Recorded Confirmed ALPRAZolam [Xanax] 1 mg PO HS PRN 04/15/15 05/07/19 Apixaban [Eliquis] 5 mg PO BID 04/15/15 05/07/19 amLODIPine [Norvasc] 5 mg PO BID 04/15/15 05/07/19 Aspirin [Adult Low Dose Aspirin EC] 81 mg PO DAILY 04/09/16 05/07/19 Lisinopril [Zestril] 20 mg PO BID 01/21/17 05/07/19 Amiodarone [Cordarone] 200 mg PO DAILY 03/20/18 05/07/19 Allopurinol [Zyloprim] 100 mg PO DAILY 05/07/19 05/07/19 Atorvastatin [Lipitor] 40 mg PO DAILY 05/07/19 05/07/19 Cholecalciferol [Vitamin D3 (25 4,000 unit PO DAILY 05/07/19 05/07/19 Mcg = 1000 Iu)] Colchicine [Colcrys] 0.6 mg PO DAILY PRN 05/07/19 05/07/19 Furosemide [Lasix] 20 mg PO DAILY 05/07/19 05/07/19 Potassium Chloride [Klor-Con 10] 10 mg PO DAILY 05/07/19 05/07/19 Previous Rx's Medication Instructions Recorded Latanoprost Ophth [Xalatan 0.005%] 1 drops BOTH EYES HS ml 04/13/16 Allergies Allergy/AdvReac Type Severity Reaction Status Date / Time No Known Allergies Allergy Verified 05/07/19 07:57 Review of Systems ROS Other: All systems not noted in ROS Statement are negative. <Kvein Elder - Last Filed: 05/07/19 00:07> ROS Other: All systems not noted in ROS Statement are negative. <Paige Pham - Last Filed: 05/08/19 00:21> ROS Statement: Those systems with pertinent positive or pertinent negative responses have been documented in the HPI. 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 Last Myocardial Infarction Date:: 2010 History of Any Multi-Drug Resistant Organisms: None Reported Past Surgical History: Cholecystectomy, Heart Catheterization With Stent, Joint Replacement, Orthopedic Surgery, Tonsillectomy Additional Past Surgical History / Comment(s): BILAT TKA AND DANIELLE, BILAT KNEE SCOPES, COLONOSCOPIES Past Anesthesia/Blood Transfusion Reactions: No Reported Reaction Date of Last Stent Placement:: 2010 Past Psychological History: No Psychological Hx Reported Smoking Status: Never smoker Past Alcohol Use History: Occasional Past Drug Use History: None Reported - Past Family History Mother Family Medical History: Cancer Additional Family Medical History / Comment(s): Mother of breast cancer at the age of 79yrs. Father Additional Family Medical History / Comment(s): Father had heart problems. He had coronary valve replacement. He at the age of 83 yrs. <JaelKevin J - Last Filed: 05/07/19 00:07> General Exam Limitations: no limitations <JaelKevin Cash - Last Filed: 05/07/19 00:07> - General Exam Comments Initial Comments: Constitutional: NAD, AOX3, Pt has pleasant affect. HEENT: NC/AT, trachea midline, neck supple, no lymphadenopathy. Posterior pharynx non erythematous, without exudates. External ears appear normal, without discharge. Mucous membranes moist. Eyes PERRLA, EOM intact. There is no scleral icterus. No pallor noted. Cardiopulmonary: RRR, no murmurs, rubs or gallops, no JVD noted. Lungs CTAB in anterior and posterior onofre. No peripheral edema. Abdominal exam: Abdomen soft and non-distended. Abdomen non-tender to palpation in all 4 quadrants. Bowel sounds active in LLQ. No hepatosplenomegaly. No ecchymosis Neuro: CN II-XII grossly intact. No nuchal rigidity. No raccon eyes, no pitt sign, no hemotympanum. No cervical spinal tenderness. MSK: No posterior calf tenderness bilaterally, homans sign negative bilaterally. Posterior tibialis and radial pulse +2 bilaterally. Sensation intact in upper and lower extremities. Full active ROM in upper and lower extremities, 5/5 stregnth. (Kevin Elder) Course Vital Signs 05/06/19 05/06/19 05/06/19 21:25 21:52 22:28 Temperature 97.5 F L Pulse Rate 52 L 61 51 L Respiratory 18 19 18 Rate Blood Pressure 144/71 134/65 114/74 O2 Sat by Pulse 97 93 L 96 Oximetry 05/06/19 05/07/19 05/07/19 23:08 00:25 02:17 Temperature 97.9 F Pulse Rate 53 L 54 L 76 Respiratory 18 20 18 Rate Blood Pressure 130/65 121/66 142/86 O2 Sat by Pulse 94 L 97 95 Oximetry Medical Decision Making - Lab Data Result diagrams: 05/06/19 21:46 05/06/19 21:46 - EKG Data -: EKG Interpreted by Me (and Dr. Pham) <Kevin Elder - Last Filed: 05/07/19 00:07> - Lab Data Result diagrams: 05/06/19 21:46 05/06/19 21:46 <Paige Pham - Last Filed: 05/08/19 00:21> - Medical Decision Making 69 year old male patient presents to ED chief complaint of chest pain and shortness of breath. Patient vital signs are stable, afebrile. Physical exam is absolutely acute pathology. At time of examination. Patient is asymptomatic. Denies chest pain or shortness of breath. The investigations are negative. Troponin negative. BNP 221. EKG nonischemic. Chest x-ray displayed minimal atelectasis. Patient will be admitted for serial troponins and cardiology evaluation. Case discussed with Dr. Pham. (Kevin Elder) I personally saw and evaluated the patient. This 69-year-old gentleman with kn own coronary artery disease presenting with chest pain. Patient does not have established cardiology care in this area, patient will be placed in observation to be evaluated by cardiology. (Paige Pham) - Lab Data Lab Results 05/06/19 05/06/19 05/06/19 Range/Units 21:46 21:46 21:46 WBC 5.8 (3.8-10.6) k/uL RBC 4.67 (4.30-5.90) m/uL Hgb 13.6 (13.0-17.5) gm/dL Hct 43.8 (39.0-53.0) % MCV 93.7 (80.0-100.0) fL MCH 29.1 (25.0-35.0) pg MCHC 31.0 (31.0-37.0) g/dL RDW 13.6 (11.5-15.5) % Plt Count 123 L (150-450) k/uL Neutrophils % 60 % Lymphocytes % 22 % Monocytes % 8 % Eosinophils % 5 % Basophils % 3 % Neutrophils # 3.5 (1.3-7.7) k/uL Lymphocytes # 1.3 (1.0-4.8) k/uL Monocytes # 0.5 (0-1.0) k/uL Eosinophils # 0.3 (0-0.7) k/uL Basophils # 0.2 (0-0.2) k/uL PT 10.9 (9.0-12.0) sec INR 1.0 (<1.2) APTT 27.3 (22.0-30.0) sec Sodium 141 (137-145) mmol/L Potassium 4.4 (3.5-5.1) mmol/L Chloride 106 (98-107) mmol/L Carbon Dioxide 23 (22-30) mmol/L Anion Gap 12 mmol/L BUN 42 H (9-20) mg/dL Creatinine 2.33 H (0.66-1.25) mg/dL Est GFR (CKD-EPI)AfAm 31 (>60 ml/min/1.73 sqM) Est GFR (CKD-EPI)NonAf 27 (>60 ml/min/1.73 sqM) Glucose 104 H (74-99) mg/dL Calcium 9.7 (8.4-10.2) mg/dL Magnesium 2.1 (1.6-2.3) mg/dL Total Bilirubin 0.4 (0.2-1.3) mg/dL AST 28 (17-59) U/L ALT 30 (21-72) U/L Alkaline Phosphatase 111 (38-126) U/L Troponin I (0.000-0.034) ng/mL NT-Pro-B Natriuret Pep pg/mL Total Protein 7.7 (6.3-8.2) g/dL Albumin 4.7 (3.5-5.0) g/dL 05/06/19 05/06/19 Range/Units 21:46 21:46 WBC (3.8-10.6) k/uL RBC (4.30-5.90) m/uL Hgb (13.0-17.5) gm/dL Hct (39.0-53.0) % MCV (80.0-100.0) fL MCH (25.0-35.0) pg MCHC (31.0-37.0) g/dL RDW (11.5-15.5) % Plt Count (150-450) k/uL Neutrophils % % Lymphocytes % % Monocytes % % Eosinophils % % Basophils % % Neutrophils # (1.3-7.7) k/uL Lymphocytes # (1.0-4.8) k/uL Monocytes # (0-1.0) k/uL Eosinophils # (0-0.7) k/uL Basophils # (0-0.2) k/uL PT (9.0-12.0) sec INR (<1.2) APTT (22.0-30.0) sec Sodium (137-145) mmol/L Potassium (3.5-5.1) mmol/L Chloride (98-107) mmol/L Carbon Dioxide (22-30) mmol/L Anion Gap mmol/L BUN (9-20) mg/dL Creatinine (0.66-1.25) mg/dL Est GFR (CKD-EPI)AfAm (>60 ml/min/1.73 sqM) Est GFR (CKD-EPI)NonAf (>60 ml/min/1.73 sqM) Glucose (74-99) mg/dL Calcium (8.4-10.2) mg/dL Magnesium (1.6-2.3) mg/dL Total Bilirubin (0.2-1.3) mg/dL AST (17-59) U/L ALT (21-72) U/L Alkaline Phosphatase (38-126) U/L Troponin I <0.012 (0.000-0.034) ng/mL NT-Pro-B Natriuret Pep 221 pg/mL Total Protein (6.3-8.2) g/dL Albumin (3.5-5.0) g/dL - EKG Data EKG Comments: Ventricular rate 64, when necessary for 146, QRS 102, QT/QTc 466 is 480. Normal sinus rhythm with sinus arrhythmia. Left axes deviation., cannot Rule out anterior infarct. No concern for acute ischemia at this time. (Kevin Elder) Disposition Is patient prescribed a controlled substance at d/c from ED?: No <Kevin Elder - Last Filed: 05/07/19 00:07> <Paige Pham - Last Filed: 05/08/19 00:21> Clinical Impression: Chest pain Disposition: ADMITTED IP TO THIS HOSP Condition: Stable
[2019-05-06] MEDS ORDERED: NITROGLYCERIN SL TABS 0.4 MG TAB SUBLINGUAL PRN (23:45)
[2019-05-07] MEDS: SODIUM CHLORIDE 0.9% 1,000 ML IV SCH ×2 (00:18→10:36)
[2019-05-07 02:17] VITALS: RESP 18
[2019-05-07 05:32] LABS: Cholesterol 105 mg/dL (<200); HDL Cholesterol 46 mg/dL (40-60); LDL Cholesterol,Calculated 41 mg/dL (0-99); Triglycerides 89 mg/dL (<150)
[2019-05-07 07:27] VITALS: BP 116/67; PULSE 55; TEMP 98.4
[2019-05-07] MEDS ORDERED: LISINOPRIL 20 MG TAB PO SCH (09:00)
[2019-05-07] MEDS ORDERED: AMIODARONE 200 MG TAB PO SCH (09:00)
[2019-05-07] MEDS ORDERED: amLODIPine 5 MG TAB PO SCH (09:00)
[2019-05-07] MEDS ORDERED: ASPIRIN 325 MG TAB PO SCH (09:00)
[2019-05-07] MEDS ORDERED: FUROSEMIDE 20 MG TAB PO SCH (09:00)
[2019-05-07] MEDS ORDERED: CAFFEINE CITRATE 60 MG/3 ML VIAL IV PRN (09:33)
[2019-05-07] MEDS ORDERED: AMINOPHYLLINE 500 MG/20 ML VIAL IV PRN (09:33)
[2019-05-07] MEDS ORDERED: DIPYRIDAMOLE 70 MG in SODIUM CHLORIDE 0.9% 36 ML IV ONE (09:33)
[2019-05-07] MEDS ORDERED: ALPRAZolam 1 MG TAB PO PRN (11:10)
[2019-05-07] MEDS ORDERED: COLCHICINE 0.6 MG EACH PO PRN (11:10)
[2019-05-07] MEDS ORDERED: POTASSIUM CHLORIDE ER 10 MEQ TAB.ER.PRT PO SCH (11:15)
[2019-05-07] MEDS ORDERED: ALLOPURINOL 100 MG TAB PO SCH (11:15)
--- NOTE | 2019-05-07 12:33 | P.STRESS ---
- Stress Test Note Stress Test Results/Findings: Exam Performed: [facility] Ex[facility] Date: 05/07/19 Reason for Exam: CHEST PAIN / A-FIB Height: 6 ft Weight: 127.006 kg [facility] Stage: NA Duration of Exercise: NA Resting Heart Rate: 59 Resting Blood Pressure: 140/69 Maximum Achieved Heart Rate: 70 Maximum Achieved Blood Pressure: 149/76 85% PMHR: NA 100% PMHR: NA METS: NA Technologist Comment: Stress Test Results/Findings: [facility] Cardiolite stress test Baseline heart rate 59 beats a minute, Baseline blood pressure 140/60 mmHg Baseline telemetry ECG shows sinus rhythm with a normal AL interval narrow QRS and frequent PVCs line these PVCs originating in the left ventricle and have acute R pattern consistent with an origin close to the aorto-mitral continuity No ECG evidence of ischemia no nonsustained ventricular tachycardia Heart rate and blood pressure remained normal New Q portion will be reported separately
--- NOTE | 2019-05-07 12:37 | ECHOF ---
Referral Reason:cp MEASUREMENTS -------- HEIGHT: 182.9 cm WEIGHT: 127.0 kg BP: 116/67 IVSd: 1.3 cm (0.6 - 1.1) LVIDd: 5.0 cm (3.9 - 5.3) LVPWd: 1.7 cm (0.6 - 1.1) IVSs: 1.9 cm LVIDs: 4.4 cm LVPWs: 1.6 cm LA Diam: 5.1 cm (2.7 - 3.8) RVIDd: 4.0 cm (< 3.3) LAESV Index (A-L): 42.52 ml/m Ao Diam: 4.0 cm (2.0 - 3.7) AV Cusp: 2.3 cm (1.5 - 2.6) EPSS: 1.1 cm MV E Petros: 0.35 m/s MV DecT: 282 ms MV A Petros: 0.62 m/s MV E/A Ratio: 0.56 RAP: 5.00 mmHg RVSP: 34.27 mmHg MV EF SLOPE: 67.55 mm/s (70 - 150) MV EXCURSION: 20.65 mm (> 18.000) FINDINGS -------- Sinus rhythm. Morbid Obesity This was a techncally difficult study with suboptimal views, , Lumason utilized for enhancement of im ages. The left ventricular size is normal. There is mild concentric left ventricular hypertrophy. Overa ll left ventricular systolic function is low-normal with, an EF between 50 - 55 %. The right ventricle is moderately enlarged. The left atrium is markedly dilated. LA is severely dilated >40 ml/m2 The right atrial size is normal. 5.0mg OF Lumason UTLIZED: 2 OR MORE WALL SEGMENTS NOT VISUALIZED. There is mild aortic valve sclerosis. There is mild aortic regurgitation. Mild mitral annular calcification present. Mild mitral regurgitation is present. Mild tricuspid regurgitation present. Right ventricular systolic pressure is normal at < 35 mmHg. There is no evidence of pulmonary hypertension. There is no pulmonic regurgitation present. Aortic Root is dilated and measures 4.0cm. Echo free space represents a pericardial fat pad. CONCLUSIONS -------- 1. Sinus rhythm. 2. Morbid Obesity 3. This was a techncally difficult study with suboptimal views, , Lumason utilized for enhancement of images. 4. The left ventricular size is normal. 5. There is mild concentric left ventricular hypertrophy. 6. Overall left ventricular systolic function is low-normal with, an EF between 50 - 55 %. 7. The right ventricle is moderately enlarged. 8. The left atrium is markedly dilated. 9. LA is severely dilated >40 ml/m2 10. The right atrial size is normal. 11. 5.0mg OF Lumason UTLIZED: 2 OR MORE WALL SEGMENTS NOT VISUALIZED. 12. There is mild aortic valve sclerosis. 13. There is mild aortic regurgitation. 14. Mild mitral annular calcification present. 15. Mild mitral regurgitation is present. 16. Mild tricuspid regurgitation present. 17. Right ventricular systolic pressure is normal at < 35 mmHg. 18. There is no evidence of pulmonary hypertension. 19. There is no pulmonic regurgitation present. 20. Aortic Root is dilated and measures 4.0cm. 21. Echo free space represents a pericardial fat pad. SENIOR TALENT ACQUISITION SPECIALIST: Kadie Lorenzo RDCS
--- NOTE | 2019-05-07 13:09 | NM ---
EXAMINATION TYPE: NM stress persantine cardiolit DATE OF EXAM: 05/07/2019 COMPARISON: NONE HISTORY: Precordial chest pain and abnormal EKG TECHNIQUE: After the intravenous administration of 10.25 mCi Tc 99m Sestamibi - Cardiolite resting S PECT images acquired 45 minutes post injection. The patient received 0.4mg Lexiscan, 25.4 mCi Tc 99m Sestamibi - Stress images obtained [address] injection FINDINGS: Review of stress and rest SPECT images demonstrates no distinct stress-induced perfusion abnormality. Fixed defect inferior wall may reflect a remote insult versus attenuation artifact. Gated analysis shows normal wall motion with an estimated left ventricular ejection fraction of 47 %. IMPRESSION: No scintigraphic evidence for reversible ischemia.
--- NOTE | 2019-05-07 13:26 | P.CRDCN ---
History of Present Illness History of present illness: HISTORY OF PRESENTING ILLNESS This is a pleasant 69-year-old male past medical history significant for coronary artery disease status post stent placement to the mid and proximal circumflex, paroxysmal atrial fibrillation on long-term anticoagulation, hypertension, dyslipidemia and obstructive sleep apnea. He presented with chest pain. He follows in the office with trucksmith out of [place], Dr Crowell. We have been asked to see him in consultation for chest pain. He presented to the hospital last evening after having an episode of chest discomfort. He states he was sleeping in his recliner chair when he woke up suddenly with a discomfort in the left precordial region that radiated down the left arm. He states his left arm felt numb and tingly and he felt short of breath. His chest discomfort lasted about 5-10 minutes and subsided on its own with no specific alleviating factor. However the shortness of breath persisted for about an hour. At the time of my exam he is seen resting comfortably in bed in no acute distress. He has had no further symptoms of chest discomfort or shortness of breath. He denies any associated palpitations, nausea, vomiting or diaphoresis. DIAGNOSTICS EKG reveals sinus mechanism heart rate of 64, left axis deviation and poor R- wave progression. Chest xray right lung base atelectasis. Laboratory reviewed, WBC 5.8, hemoglobin 13.6, platelets 123, sodium 141, potassium 4.4, creatinine 2.33 with a GFR of 27, magnesium 2.1, cardiac enzymes negative 3, LDL 41, proBNP 221. Current cardiac medications include atorvastatin 40 mg daily, amlodipine 5 mg twice a day, potassium supplementation daily, lisinopril 20 mg twice a day, Lasix 20 mg daily, aspirin 81 mg daily, Eliquis 5 mg twice a day, atorvastatin 40 mg daily and amiodarone 200 mg daily. REVIEW OF SYSTEMS At the time of my exam: CONSTITUTIONAL: Denies fever or chills. CARDIOVASCULAR: Denies chest pain, shortness of breath, orthopnea, PND or palpitations. RESPIRATORY: Denies cough. GASTROINTESTINAL: Denies abdominal pain, diarrhea, constipation, nausea or vomiting. MUSCULOSKELETAL: Denies myalgias. NEUROLOGIC: Denies numbness, tingling or weakness. ENDOCRINE: Denies fatigue, weight change, polydipsia or polyurina. GENITOURINARY: Denies burning, hematuria or urgency with micturation. HEMATOLOGIC: Denies history of anemia or bleeding. PHYSICAL EXAMINATION Blood pressure 116/67 heart rate 55 afebrile and maintaining oxygen saturaiton on room air. CONSTITUTIONAL: No apparent distress. HEENT: Head is normocephalic. Pupils are equal, round. Sclerae anicteric. Mucous membranes of the mouth are moist. No JVD. No carotid bruit. CHEST EXAMINATION: Lungs are clear to auscultation. No chest wall tenderness is noted on palpation or with deep breathing. HEART EXAMINATION: Regular rate and rhythm. S1, S2 heard. No murmurs, gallops or rub. ABDOMEN: Soft, nontender. Positive bowel sounds. EXTREMITIES: 1+ bilateral lower extremity pitting edema and no calf tenderness. NEUROLOGIC EXAMINATION: Patient is awake, alert and oriented x3. ASSESSMENT Precordial chest pain, and acute coronary event has been ruled out. History of coronary artery disease status post stent placement Hypertension Dyslipidemia Paroxysmal atrial fibrillation on long-term anticoagulation Obstructive sleep apnea Chronic renal failure PLAN An acute coronary event has been ruled out. Obtain 2-D echocardiogram and Doppler study to assess cardiac structure and function. Perform Persantine stress test to assess reversible cardiac ischemia. Hold Eliquis in case the stress test is abnormal and he may require a heart cathetereization. If stress test is negative he may be discharged from a cardiac perspective. He is leaving for [place] for the winter and would like to establish in the office with Dr. Fields when he returns in the spring. He also does follow with a trucksmith in [place] while he is there. We will make a follow up appointment for October if all testing is unremarkable. Thank you kindly for this consultation. Nurse Practitioner note has been reviewed, I agree with a documented findings and plan of care. Patient was seen and examined. 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, KEITH with bipap use, R ankle problem that requires pt to wear a splint at times Last Myocardial Infarction Date:: 2010 History of Any Multi-Drug Resistant Organisms: None Reported Past Surgical History: Cholecystectomy, Heart Catheterization With Stent, Joint Replacement, Orthopedic Surgery, Tonsillectomy Additional Past Surgical History / Comment(s): BILAT TKA AND DANIELLE, BILAT KNEE SCOPES, COLONOSCOPIES Past Anesthesia/Blood Transfusion Reactions: No Reported Reaction Date of Last Stent Placement:: 2010 Past Psychological History: No Psychological Hx Reported Smoking Status: Never smoker Past Alcohol Use History: Occasional Past Drug Use History: None Reported - Past Family History Mother Family Medical History: Cancer Additional Family Medical History / Comment(s): Mother of breast cancer at the age of 79yrs. Father Additional Family Medical History / Comment(s): Father had heart problems. He had coronary valve replacement. He at the age of 83 yrs. Medications and Allergies Home Medications Medication Instructions Recorded Confirmed Type ALPRAZolam [Xanax] 1 mg PO HS PRN 04/15/15 05/07/19 History Apixaban [Eliquis] 5 mg PO BID 04/15/15 05/07/19 History amLODIPine [Norvasc] 5 mg PO BID 04/15/15 05/07/19 History Aspirin [Adult Low Dose Aspirin EC] 81 mg PO DAILY 04/09/16 05/07/19 History Latanoprost Ophth [Xalatan 0.005%] 1 drops BOTH EYES HS ml 04/13/16 05/07/19 Rx Lisinopril [Zestril] 20 mg PO BID 01/21/17 05/07/19 History Amiodarone [Cordarone] 200 mg PO DAILY 03/20/18 05/07/19 History Allopurinol [Zyloprim] 100 mg PO DAILY 05/07/19 05/07/19 History Atorvastatin [Lipitor] 40 mg PO DAILY 05/07/19 05/07/19 History Cholecalciferol [Vitamin D3 (25 4,000 unit PO DAILY 05/07/19 05/07/19 History Mcg = 1000 Iu)] Colchicine [Colcrys] 0.6 mg PO DAILY PRN 05/07/19 05/07/19 History Furosemide [Lasix] 20 mg PO DAILY 05/07/19 05/07/19 History Potassium Chloride [Klor-Con 10] 10 mg PO DAILY 05/07/19 05/07/19 History Allergies Allergy/AdvReac Type Severity Reaction Status Date / Time No Known Allergies Allergy Verified 05/07/19 07:57 Physical Exam Vitals: Vital Signs Temp Pulse Pulse Resp BP BP BP 05/07/19 07:26 98.4 F 55 L 18 116/67 05/07/19 02:30 97.7 F 48 L 18 131/66 05/07/19 02:17 76 18 142/86 05/07/19 00:25 54 L 20 121/66 05/06/19 23:08 97.9 F 53 L 18 130/65 05/06/19 22:28 51 L 18 114/74 05/06/19 21:52 61 19 134/65 05/06/19 21:25 97.5 F L 52 L 18 144/71 Pulse Ox 05/07/19 07:26 95 05/07/19 02:30 95 05/07/19 02:17 95 05/07/19 00:25 97 05/06/19 23:08 94 L 05/06/19 22:28 96 05/06/19 21:52 93 L 05/06/19 21:25 97 Intake and Output 05/06/19 05/07/19 05/07/19 22:59 06:59 14:59 Other: Voiding Method Toilet # Voids 1 Weight 127.006 kg Results 05/06/19 21:46 05/06/19 21:46 Cardiac Enzymes 05/06/19 05/06/19 05/07/19 Range/Units 21:46 21:46 04:34 AST 28 (17-59) U/L Troponin I <0.012 0.013 (0.000-0.034) ng/mL Coagulation 05/06/19 Range/Units 21:46 PT 10.9 (9.0-12.0) sec APTT 27.3 (22.0-30.0) sec Lipids 05/07/19 Range/Units 04:34 Triglycerides 89 (<150) mg/dL Cholesterol 105 (<200) mg/dL HDL Cholesterol 46 (40-60) mg/dL CBC 05/06/19 Range/Units 21:46 WBC 5.8 (3.8-10.6) k/uL RBC 4.67 (4.30-5.90) m/uL Hgb 13.6 (13.0-17.5) gm/dL Hct 43.8 (39.0-53.0) % Plt Count 123 L (150-450) k/uL Comprehensive Metabolic Panel 05/06/19 Range/Units 21:46 Sodium 141 (137-145) mmol/L Potassium 4.4 (3.5-5.1) mmol/L Chloride 106 (98-107) mmol/L Carbon Dioxide 23 (22-30) mmol/L BUN 42 H (9-20) mg/dL Creatinine 2.33 H (0.66-1.25) mg/dL Glucose 104 H (74-99) mg/dL Calcium 9.7 (8.4-10.2) mg/dL AST 28 (17-59) U/L ALT 30 (21-72) U/L Alkaline Phosphatase 111 (38-126) U/L Total Protein 7.7 (6.3-8.2) g/dL Albumin 4.7 (3.5-5.0) g/dL Current Medications Generic Name Dose Route Start Last Admin Trade Name Freq PRN Reason Stop Dose Admin Aspirin 325 mg 05/07/19 09:00 Aspirin PO DAILY ASHLEY Sodium Chloride 1,000 mls @ 100 mls/hr 05/06/19 23:45 05/07/19 00:18 Saline 0.9% IV 100 mls/hr .Q10H ASHLEY Administration Nitroglycerin 0.4 mg 05/06/19 23:45 Nitrostat SUBLINGUAL Q5M PRN Chest Pain Intake and Output 05/06/19 05/07/19 05/07/19 22:59 06:59 14:59 Other: Voiding Method Toilet # Voids 1 Weight 127.006 kg 05/06/19 21:46 05/06/19 21:46
[2019-05-07] MEDS ORDERED: APIXABAN 5 MG TAB PO SCH (13:30)
--- NOTE | 2019-05-07 18:44 | P.HPIM ---
History of Present Illness H&P Date: 05/07/19 Chief Complaint: Chest pressure History of presenting complaint: This is a very pleasant 69-year-old patient of Dr. anand from [place]. Chronic stable medical conditions include paroxysmal atrial fibrillation, coronary artery disease with stent, hyperlipidemia, hypertension, chronic kidney disease stage III, osteoarthritis, atrophic right kidney, obstructive sleep a pnea uses CPAP machine. Vision presented, white was sitting in a chair, felt some heaviness in the left precordial area. Also slight tingling in the left arm. It was too claustrophobic 5 minutes settled down on its own. There was no associated dizziness, lightheadedness, perspiration. No other symptoms. Given his medical history record concerned and decided to present to ER. Review of systems: GEN.: None EYES: None HEENT: None NECK: None RESPIRATORY: None CARDIOVASCULAR: As above GASTROINTESTINAL: None GENITOURINARY: None MUSCULOSKELETAL: Joint pains LYMPHATICS: None HEMATOLOGICAL: None PSYCHIATRY: None NEUROLOGICAL: None Social history: No smoking. Alcohol occasionally. Son lives with him. Family history: Breast cancer mother Physical examination: VITAL SIGNS: 97.5, 52, 18, 144/71, 97% room air GENERAL: 38, sitting on bed comfortable. EYES: Pupils equal. Conjunctiva normal. HEENT: External appearance of nose and ears normal, oral cavity grossly normal. NECK: JVD not raised; masses not palpable. HEART: First and second heart sounds are normal; no edema. LUNGS: Respiratory rate normal; fair air entry. ABDOMEN: Soft, nontender, liver spleen not palpable, no masses palpable. PSYCH: Alert and oriented x3; mood and affect normal. NEUROLOGICAL: Cranial nerves grossly intact; no facial asymmetry, power and sensation grossly intact. LYMPHATICS: No lymph nodes palpable in the axilla and neck INVESTIGATIONS, reviewed in the clinical context: White count 5.8 hemoglobin 13.6 platelets 143 potassium 4.4 BUN 42 creatinine 2.33 patient's renal function and October of this year included bun 36 creatinine 2.0 Troponin I-less than 0.012, 0.013, less than 0.012 EKG tracing personally reviewed by me-normal sinus rhythm Chest x-ray film personally reviewed by me-right diaphragm elevated, lung onofre clear, cardiomegaly Assessment: -Possible unstable angina in a patient with known coronary artery disease with negative troponin -Coronary artery disease with prior stent -Hyperlipidemia -Essential hypertension -Chronic kidney disease stage III from nephrosclerosis -Paroxysmal atrial flutter patient currently in sinus rhythm -Chronic nephrolithiasis -Obstructive sleep apnea uses BiPAP -Atrophic right kidney Plan: Acute [place] was ruled out. Home medications resumed. Cardiology was consulted. Patient on aspirin. Cardiology did order a nuclear stress test. 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, KEITH with bipap use, R ankle problem that requires pt to wear a splint at times Last Myocardial Infarction Date:: 2010 History of Any Multi-Drug Resistant Organisms: None Reported Past Surgical History: Cholecystectomy, Heart Catheterization With Stent, Joint Replacement, Orthopedic Surgery, Tonsillectomy Additional Past Surgical History / Comment(s): BILAT TKA AND DANIELLE, BILAT KNEE SCOPES, COLONOSCOPIES Past Anesthesia/Blood Transfusion Reactions: No Reported Reaction Date of Last Stent Placement:: 2010 Past Psychological History: No Psychological Hx Reported Smoking Status: Never smoker Past Alcohol Use History: Occasional Past Drug Use History: None Reported - Past Family History Mother Family Medical History: Cancer Additional Family Medical History / Comment(s): Mother of breast cancer at the age of 79yrs. Father Additional Family Medical History / Comment(s): Father had heart problems. He had coronary valve replacement. He at the age of 83 yrs. Medications and Allergies Home Medications Medication Instructions Recorded Confirmed Type ALPRAZolam [Xanax] 1 mg PO HS PRN 04/15/15 05/07/19 History Apixaban [Eliquis] 5 mg PO BID 04/15/15 05/07/19 History amLODIPine [Norvasc] 5 mg PO BID 04/15/15 05/07/19 History Aspirin [Adult Low Dose Aspirin EC] 81 mg PO DAILY 04/09/16 05/07/19 History Latanoprost Ophth [Xalatan 0.005%] 1 drops BOTH EYES HS ml 04/13/16 05/07/19 Rx Lisinopril [Zestril] 20 mg PO BID 01/21/17 05/07/19 History Amiodarone [Cordarone] 200 mg PO DAILY 03/20/18 05/07/19 History Allopurinol [Zyloprim] 100 mg PO DAILY 05/07/19 05/07/19 History Atorvastatin [Lipitor] 40 mg PO DAILY 05/07/19 05/07/19 History Cholecalciferol [Vitamin D3 (25 4,000 unit PO DAILY 05/07/19 05/07/19 History Mcg = 1000 Iu)] Colchicine [Colcrys] 0.6 mg PO DAILY PRN 05/07/19 05/07/19 History Furosemide [Lasix] 20 mg PO DAILY 05/07/19 05/07/19 History Potassium Chloride [Klor-Con 10] 10 mg PO DAILY 05/07/19 05/07/19 History Allergies Allergy/AdvReac Type Severity Reaction Status Date / Time No Known Allergies Allergy Verified 05/07/19 07:57 Physical Exam Vitals: Vital Signs Temp Pulse Pulse Resp BP BP BP 05/07/19 07:26 98.4 F 55 L 18 116/67 05/07/19 02:30 97.7 F 48 L 18 131/66 05/07/19 02:17 76 18 142/86 05/07/19 00:25 54 L 20 121/66 05/06/19 23:08 97.9 F 53 L 18 130/65 05/06/19 22:28 51 L 18 114/74 05/06/19 21:52 61 19 134/65 05/06/19 21:25 97.5 F L 52 L 18 144/71 Pulse Ox 05/07/19 07:26 95 05/07/19 02:30 95 05/07/19 02:17 95 05/07/19 00:25 97 05/06/19 23:08 94 L 05/06/19 22:28 96 05/06/19 21:52 93 L 05/06/19 21:25 97 Intake and Output 05/06/19 05/07/19 05/07/19 22:59 06:59 14:59 Other: Voiding Method Toilet Toilet # Voids 1 Weight 127.006 kg Results CBC & Chem 7: 05/06/19 21:46 05/06/19 21:46 Labs: Abnormal Lab Results - Last 24 Hours (Table) 05/06/19 05/06/19 Range/Units 21:46 21:46 Plt Count 123 L (150-450) k/uL BUN 42 H (9-20) mg/dL Creatinine 2.33 H (0.66-1.25) mg/dL Glucose 104 H (74-99) mg/dL Thrombosis Risk Factor Assmnt - Choose All That Apply Any of the Below Risk Factors Present?: Yes Each Factor Represents 1 point: Obesity (BMI >25) Other Risk Factors: Yes Each Risk Factor Represents 2 Points: Age 61-74 years Other congenital or acquired thrombophilia - If yes, enter type in comment: No Thrombosis Risk Factor Assessment Total Risk Factor Score: 3 Thrombosis Risk Factor Assessment Level: Moderate Risk
--- NOTE | 2019-05-07 18:47 | P.DS ---
Providers Date of admission: 05/07/19 01:52 Expected date of discharge: 05/07/19 Attending physician: Aidan Nunes Consults: 05/06/19 23:46 Consult Physician Urgent Consulting Provider: Chava Walsh Consult Reason/Comments: chest pain Do you want consulting provider notified?: Yes, Notify in am Primary care physician: Giovani Doll [facility] Course: Chief Complaint: Chest pressure History of presenting complaint: This is a very pleasant 69-year-old patient of Dr. doll from [place]. Chronic stable medical conditions include paroxysmal atrial fibrillation, coronary artery disease with stent, hyperlipidemia, hypertension, chronic kidney disease stage III, osteoarthritis, atrophic right kidney, obstructive sleep apnea uses CPAP machine. Vision presented, white was sitting in a chair, felt some heaviness in the left precordial area. Also slight tingling in the left arm. It was too claustrophobic 5 minutes settled down on its own. There was no associated dizziness, lightheadedness, perspiration. No other symptoms. Given his medical history record concerned and decided to present to ER. Percent and Cardiolite stress test was negative. EF 47%. Cleared by cardiology to go home. Consultation: Dr. Wells from cardiology Physical examination: VITAL SIGNS: 98.4, 55, 18, 1160 67, 95% room air GENERAL: Sitting up, comfortable EYES: Pupils equal. Conjunctiva normal. HEENT: External appearance of nose and ears normal, oral cavity grossly normal. NECK: JVD not raised; masses not palpable. HEART: First and second heart sounds are normal; no edema. LUNGS: Respiratory rate normal; fair air entry. ABDOMEN: Soft, nontender, liver spleen not palpable, no masses palpable. PSYCH: Alert and oriented x3; mood and affect normal. INVESTIGATIONS, reviewed in the clinical context: White count 5.8 hemoglobin 13.6 platelets 143 potassium 4.4 BUN 42 creatinine 2.33 patient's renal function and October of this year included bun 36 creatinine 2.0 Troponin I-less than 0.012, 0.013, less than 0.012 EKG tracing personally reviewed by me-normal sinus rhythm Chest x-ray film personally reviewed by me-right diaphragm elevated, lung onofre clear, cardiomegaly LDL 41 Nuclear stress test negative Assessment: -Left anterior chest wall, possibly musculoskeletal -Coronary artery disease with prior stent -Hyperlipidemia -Essential hypertension -Chronic kidney disease stage III from nephrosclerosis -Paroxysmal atrial flutter patient currently in sinus rhythm -Chronic nephrolithiasis -Obstructive sleep apnea uses BiPAP -Atrophic right kidney Disposition: Home Patient Condition at Discharge: Stable Plan - Discharge Summary Discharge Rx Participant: No New Discharge Prescriptions: Continue amLODIPine [Norvasc] 5 mg PO BID Apixaban [Eliquis] 5 mg PO BID ALPRAZolam [Xanax] 1 mg PO HS PRN PRN Reason: Anxiety Aspirin [Adult Low Dose Aspirin EC] 81 mg PO DAILY Latanoprost Ophth [Xalatan 0.005%] 1 drops BOTH EYES HS ml Lisinopril [Zestril] 20 mg PO BID Amiodarone [Cordarone] 200 mg PO DAILY Furosemide [Lasix] 20 mg PO DAILY Potassium Chloride [Klor-Con 10] 10 mg PO DAILY Cholecalciferol [Vitamin D3 (25 Mcg = 1000 Iu)] 4,000 unit PO DAILY Colchicine [Colcrys] 0.6 mg PO DAILY PRN PRN Reason: GOUT FLARE UP Allopurinol [Zyloprim] 100 mg PO DAILY Atorvastatin [Lipitor] 40 mg PO DAILY Discharge Medication List ALPRAZolam [Xanax] 1 mg PO HS PRN 04/15/15 [History] Apixaban [Eliquis] 5 mg PO BID 04/15/15 [History] amLODIPine [Norvasc] 5 mg PO BID 04/15/15 [History] Aspirin [Adult Low Dose Aspirin EC] 81 mg PO DAILY 04/09/16 [History] Latanoprost Ophth [Xalatan 0.005%] 1 drops BOTH EYES HS ml 04/13/16 [Rx] Lisinopril [Zestril] 20 mg PO BID 01/21/17 [History] Amiodarone [Cordarone] 200 mg PO DAILY 03/20/18 [History] Allopurinol [Zyloprim] 100 mg PO DAILY 05/07/19 [History] Atorvastatin [Lipitor] 40 mg PO DAILY 05/07/19 [History] Cholecalciferol [Vitamin D3 (25 Mcg = 1000 Iu)] 4,000 unit PO DAILY 05/07/19 [History] Colchicine [Colcrys] 0.6 mg PO DAILY PRN 05/07/19 [History] Furosemide [Lasix] 20 mg PO DAILY 05/07/19 [History] Potassium Chloride [Klor-Con 10] 10 mg PO DAILY 05/07/19 [History] Follow up Appointment(s)/Referral(s): Joey Fields MD [STAFF PHYSICIAN] - 10/28/19 4:45 pm Giovani Doll MD [Primary Care Provider] - 3 Days Patient Instructions/Handouts: Chest Pain (DC) Discharge Disposition: HOME SELF-CARE
[2019-05-07] MEDS ORDERED: LATANOPROST 0.005% OPHTH DROPS 2.5 ML BTL BOTH EYES SCH (21:00)
[2019-05-07] MEDS ORDERED: PRAVASTATIN SODIUM 40 MG TAB PO SCH (21:00)
[2019-05-08] MEDS ORDERED: ASPIRIN 81 MG PO SCH ×2 (09:00)
--- NOTE | 2019-05-12 09:21 | EST ---
- Stress Test Note Stress Test Results/Findings: Exam Performed: [facility] Exam Date: 05/07/19 Reason for Exam: CHEST PAIN / A-FIB Height: 6 ft Weight: 127.006 kg [facility] Stage: NA Duration of Exercise: NA Resting Heart Rate: 59 Resting Blood Pressure: 140/69 Maximum Achieved Heart Rate: 70 Maximum Achieved Blood Pressure: 149/76 85% PMHR: NA 100% PMHR: NA METS: NA Technologist Comment: Stress Test Results/Findings: [facility] Cardiolite stress test Baseline heart rate 59 beats a minute, Baseline blood pressure 140/60 mmHg Baseline telemetry ECG shows sinus rhythm with a normal OK interval narrow QRS and frequent PVCs line these PVCs originating in the left ventricle and have acute R pattern consistent with an origin close to the aorto-mitral continuity No ECG evidence of ischemia no nonsustained ventricular tachycardia Heart rate and blood pressure remained normal New Q portion will be reported separately MTDD
== END 2019-05-07 16:23 | disposition home or self-care (01) ==
LOC: EC 21:16 → 1SOBS 05-07 01:52
PROVIDERS: ADMIT Hospitalist; ATTEND Hospitalist
DX: R07.89 Other chest pain (principal); I25.10 Atherosclerotic heart disease of native coronary artery without angina pectoris; R07.2 Precordial pain; R06.02 Shortness of breath; R20.0 Anesthesia of skin; R20.2 Paresthesia of skin; Z95.5 Presence of coronary angioplasty implant and graft; E78.5 Hyperlipidemia, unspecified; I12.9 Hypertensive chronic kidney disease with stage 1 through stage 4 chronic kidney disease, or unspecified chronic kidney disease; N18.3 Chronic kidney disease, stage 3 (moderate); I48.92 Unspecified atrial flutter; G47.33 Obstructive sleep apnea (adult) (pediatric); Z99.89 Dependence on other enabling machines and devices; N20.0 Calculus of kidney; I48.0 Paroxysmal atrial fibrillation; F40.240 Claustrophobia; I25.2 Old myocardial infarction; H40.9 Unspecified glaucoma; E66.9 Obesity, unspecified; Z68.38 Body mass index [BMI] 38.0-38.9, adult; M46.96 Unspecified inflammatory spondylopathy, lumbar region; Z90.49 Acquired absence of other specified parts of digestive tract; Z79.01 Long term (current) use of anticoagulants; Z87.01 Personal history of pneumonia (recurrent); Z79.899 Other long term (current) drug therapy; Z79.82 Long term (current) use of aspirin; Z87.442 Personal history of urinary calculi; Z80.3 Family history of malignant neoplasm of breast; Z82.49 Family history of ischemic heart disease and other diseases of the circulatory system
CPT/HCPCS: 93005 ×2; 96360; 96361; 99285; 36415; 93017; 83880; 80061; 80053; 83735; 84484 ×2; 85025; 85610; 85730; 71046; 78452; G0378; C8929; A9500; J1245; Q9950; 93306

== ENCOUNTER 2021-02-20 12:43 | Inpatient (IN) | payer MEDICARE, BC ==
[2021-02-20 13:38] LABS: Basophils % (A) 1 %; Eosinophils # (A) 0.2 k/uL (0-0.7); Eosinophils % (A) 2 %; HCT 43.7 % (39.0-53.0); HGB 14.5 gm/dL (13.0-17.5); Lymphocytes # (A) 1.2 k/uL (1.0-4.8); Lymphocytes % (A) 14 %; MCH 32.1 pg (25.0-35.0); MCHC 33.3 g/dL (31.0-37.0); MCV 96.5 fL (80.0-100.0); Mean Platelet Volume 7.8; Monocytes # (A) 0.7 k/uL (0-1.0); Monocytes % (A) 8 %; Neutrophils # (A) 5.9 k/uL (1.3-7.7); Neutrophils % (A) 72 %; Platelet Count 136 k/uL (150-450); RBC 4.52 m/uL (4.30-5.90); RDW 15.1 % (11.5-15.5); WBC 8.1 k/uL (3.8-10.6)
[2021-02-20 13:42] LABS: INR 1.2 (<1.2); Partial Thromboplastin Time 25.9 sec (22.0-30.0); Prothrombin Time 12.3 sec (9.0-12.0)
--- NOTE | 2021-02-20 13:43 | XR ---
EXAMINATION TYPE: XR chest 2V DATE OF EXAM: 02/20/2021 COMPARISON: 05/06/2019 HISTORY: Shortness of breath TECHNIQUE: Frontal and lateral views of the chest are obtained. FINDINGS: Scattered senescent parenchymal changes noted. Hyperinflation compatible with COPD. No evidence for infiltrate. No evidence for atelectasis. Heart size is stable. Mediastinal structures are stable and grossly unremarkable. No evidence for hilar prominence. Degenerative changes dorsal spine. IMPRESSION: 1. No evidence for acute pulmonary disease.
[2021-02-20 13:46] LABS: Potassium 4.4 mmol/L (3.5-5.1)
[2021-02-20 13:47] LABS: Calcium 9.5 mg/dL (8.4-10.2); Magnesium 1.8 mg/dL (1.6-2.3); Total Bilirubin 1.2 mg/dL (0.2-1.3); Total Protein 6.3 g/dL (6.3-8.2)
--- NOTE | 2021-02-20 14:14 | ED ---
Arrhythmia/Palpitations HPI - General Chief Complaint: Arrhythmia/Palpitations Stated Complaint: AFib, SOB Time Seen by Provider: 02/20/21 12:59 Source: patient, RN notes reviewed Mode of arrival: ambulatory Limitations: no limitations - History of Present Illness Initial Comments: 71-year-old male with a history of A. fib who states his A. fib is getting worse and shortness of breath and exertional dyspnea is getting worse. 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 MD Complaint: palpitations, atrial fibrillation - Related Data Home Medications Medication Instructions Recorded Confirmed ALPRAZolam [Xanax] 1 mg PO HS PRN 04/15/15 02/20/21 Apixaban [Eliquis] 5 mg PO BID 04/15/15 02/20/21 Aspirin [Adult Low Dose Aspirin EC] 81 mg PO DAILY 04/09/16 02/20/21 Cholecalciferol [Vitamin D3 (25 5,000 unit PO DAILY 05/07/19 02/20/21 Mcg = 1000 Iu)] Furosemide [Lasix] 20 mg PO Q48H 05/07/19 02/20/21 allopurinoL [Zyloprim] 100 mg PO DAILY 05/07/19 02/20/21 Acetaminophen-Codeine 300-30mg 1 tab PO Q6H PRN 01/20/21 02/20/21 [Tylenol w/codeine #3] Lisinopril [Prinivil] 5 mg PO HS 01/20/21 02/20/21 Atorvastatin [Lipitor] 80 mg PO DAILY 02/20/21 02/20/21 Dicyclomine [Bentyl] 20 mg PO AC-TID 02/20/21 02/20/21 Metoclopramide [Reglan] 5 mg PO ACHS 02/20/21 02/20/21 Metoprolol Tartrate [Lopressor] 50 mg PO DAILY@1800 02/20/21 02/20/21 Metoprolol Tartrate [Lopressor] 100 mg PO DAILY@0800 02/20/21 02/20/21 Pantoprazole Sodium [Protonix] 40 mg PO DAILY 02/20/21 02/20/21 predniSONE [Deltasone] See Taper PO DIRECTED PRN 02/20/21 02/20/21 Previous Rx's Medication Instructions Recorded Latanoprost Ophth [Xalatan 0.005%] 1 drops BOTH EYES HS ml 04/13/16 Allergies Allergy/AdvReac Type Severity Reaction Status Date / Time No Known Allergies Allergy Verified 02/20/21 14:09 Review of Systems ROS Statement: Those systems with pertinent positive or pertinent negative responses have been documented in the HPI. ROS Other: All systems not noted in ROS Statement are negative. 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, KEITH with bipap use, R ankle problem that requires pt to wear a splint at times Last Myocardial Infarction Date:: 2010 History of Any Multi-Drug Resistant Organisms: None Reported Past Surgical History: Cholecystectomy, Heart Catheterization With Stent, Joint Replacement, Orthopedic Surgery, Tonsillectomy Additional Past Surgical History / Comment(s): BILAT TKA AND DANIELLE, BILAT KNEE SCOPES, COLONOSCOPIES Past Anesthesia/Blood Transfusion Reactions: No Reported Reaction Date of Last Stent Placement:: 2010 Past Psychological History: No Psychological Hx Reported Smoking Status: Never smoker Past Alcohol Use History: Occasional - Past Family History Mother Family Medical History: Cancer Additional Family Medical History / Comment(s): Mother of breast cancer at the age of 79yrs. Father Additional Family Medical History / Comment(s): Father had heart problems. He had coronary valve replacement. He at the age of 83 yrs. General Exam - General Exam Comments Initial Comments: This is a well-developed well-nourished awake alert oriented 3 male Limitations: no limitations General appearance: alert, in no apparent distress Head exam: Present: atraumatic, normocephalic, normal inspection Eye exam: Present: normal appearance, PERRL, EOMI. Absent: scleral icterus, conjunctival injection, periorbital swelling ENT exam: Present: normal exam, mucous membranes moist Neck exam: Present: normal inspection. Absent: tenderness, meningismus, lymphadenopathy Respiratory exam: Present: decreased breath sounds. Absent: respiratory distress, wheezes, rales, rhonchi, stridor Cardiovascular Exam: Present: tachycardia, irregular rhythm. Absent: systolic murmur, diastolic murmur, rubs, gallop, clicks GI/Abdominal exam: Present: soft, normal bowel sounds. Absent: distended, tenderness, guarding, rebound, rigid Extremities exam: Present: full ROM, normal capillary refill, pedal edema. Absent: tenderness, joint swelling, calf tenderness Back exam: Present: normal inspection Neurological exam: Present: alert, oriented X3, CN II-XII intact Psychiatric exam: Present: normal affect, normal mood Skin exam: Present: warm, dry, intact, normal color. Absent: rash Course Vital Signs 02/20/21 12:45 Temperature 99.2 F Pulse Rate 144 H Respiratory 18 Rate Blood Pressure 115/72 O2 Sat by Pulse 97 Oximetry EKG Findings - EKG Results: EKG: interpreted by PHANI (Atrial fibrillation rate 113 QRS 84 QT since QTC 376/5:15 at that exodeviation nonspecific T-wave configuration) Medical Decision Making - Medical Decision Making I did discuss the findings with the patient also with Dr. Allen the patient wi ll be admitted with evaluation by cardiology - Lab Data Result diagrams: 02/20/21 13:08 02/20/21 13:08 Lab Results 02/20/21 02/20/21 02/20/21 Range/Units 13:08 13:08 13:08 WBC 8.1 (3.8-10.6) k/uL RBC 4.52 (4.30-5.90) m/uL Hgb 14.5 (13.0-17.5) gm/dL Hct 43.7 (39.0-53.0) % MCV 96.5 (80.0-100.0) fL MCH 32.1 (25.0-35.0) pg MCHC 33.3 (31.0-37.0) g/dL RDW 15.1 (11.5-15.5) % Plt Count 136 L (150-450) k/uL MPV 7.8 Neutrophils % 72 % Lymphocytes % 14 % Monocytes % 8 % Eosinophils % 2 % Basophils % 1 % Neutrophils # 5.9 (1.3-7.7) k/uL Lymphocytes # 1.2 (1.0-4.8) k/uL Monocytes # 0.7 (0-1.0) k/uL Eosinophils # 0.2 (0-0.7) k/uL Basophils # 0.0 (0-0.2) k/uL PT 12.3 H (9.0-12.0) sec INR 1.2 H (<1.2) APTT 25.9 (22.0-30.0) sec D-Dimer 1.11 H (<0.60) mg/L FEU Sodium 140 (137-145) mmol/L Potassium 4.4 (3.5-5.1) mmol/L Chloride 105 (98-107) mmol/L Carbon Dioxide 25 (22-30) mmol/L Anion Gap 10 mmol/L BUN 26 H (9-20) mg/dL Creatinine 1.61 H (0.66-1.25) mg/dL Est GFR (CKD-EPI)AfAm 49 (>60 ml/min/1.73 sqM) Est GFR (CKD-EPI)NonAf 42 (>60 ml/min/1.73 sqM) Glucose 105 H (74-99) mg/dL Calcium 9.5 (8.4-10.2) mg/dL Magnesium 1.8 (1.6-2.3) mg/dL Total Bilirubin 1.2 (0.2-1.3) mg/dL AST 25 (17-59) U/L ALT 21 (4-49) U/L Alkaline Phosphatase 58 (38-126) U/L Creatine Kinase 57 (55-170) U/L Troponin I (0.000-0.034) ng/mL Total Protein 6.3 (6.3-8.2) g/dL Albumin 4.0 (3.5-5.0) g/dL 02/20/21 Range/Units 13:08 WBC (3.8-10.6) k/uL RBC (4.30-5.90) m/uL Hgb (13.0-17.5) gm/dL Hct (39.0-53.0) % MCV (80.0-100.0) fL MCH (25.0-35.0) pg MCHC (31.0-37.0) g/dL RDW (11.5-15.5) % Plt Count (150-450) k/uL MPV Neutrophils % % Lymphocytes % % Monocytes % % Eosinophils % % Basophils % % Neutrophils # (1.3-7.7) k/uL Lymphocytes # (1.0-4.8) k/uL Monocytes # (0-1.0) k/uL Eosinophils # (0-0.7) k/uL Basophils # (0-0.2) k/uL PT (9.0-12.0) sec INR (<1.2) APTT (22.0-30.0) sec D-Dimer (<0.60) mg/L FEU Sodium (137-145) mmol/L Potassium (3.5-5.1) mmol/L Chloride (98-107) mmol/L Carbon Dioxide (22-30) mmol/L Anion Gap mmol/L BUN (9-20) mg/dL Creatinine (0.66-1.25) mg/dL Est GFR (CKD-EPI)AfAm (>60 ml/min/1.73 sqM) Est GFR (CKD-EPI)NonAf (>60 ml/min/1.73 sqM) Glucose (74-99) mg/dL Calcium (8.4-10.2) mg/dL Magnesium (1.6-2.3) mg/dL Total Bilirubin (0.2-1.3) mg/dL AST (17-59) U/L ALT (4-49) U/L Alkaline Phosphatase (38-126) U/L Creatine Kinase (55-170) U/L Troponin I 0.017 (0.000-0.034) ng/mL Total Protein (6.3-8.2) g/dL Albumin (3.5-5.0) g/dL - Radiology Data Radiology results: report reviewed (Imaging a report reviewed no evidence of acute findings at this time.), image reviewed Disposition Clinical Impression: Rapid atrial fibrillation, Exertional dyspnea, Failure of outpatient treatment, Renal insufficiency Disposition: ADMITTED IP TO THIS HOSP Condition: Fair Referrals: Giovani Doll MD [Primary Care Provider] - 1-2 days
[2021-02-20] MEDS ORDERED: NALOXONE 0.4 MG/ML 1 ML VIAL IV PRN (14:37)
[2021-02-20] MEDS ORDERED: FUROSEMIDE 20 MG TAB PO SCH (15:00)
--- NOTE | 2021-02-20 15:27 | P.HPIM ---
History of Present Illness H&P Date: 02/20/21 This is a 71-year-old male with past medical history noted below significant for chronic atrial fibrillation on anticoagulation with Eliquis presented to the emergency room with palpitation and shortness of breath. Patient said that his symptoms started couple of days ago and is being getting progressively worse. Patient told me that he already is in A. fib but wanted to wait a little bit maybe would improve. He was evaluated in the ER and on presentation his heart rate was around 140 A. fib with rapid ventricular response. Patient's heart rate sewn after slow down to the 110 range without any intervention. Patient will be placed on observation for cardiology consultation. Review of Systems Review of system: 14 points review of systems were obtained and were negative except to what were mentioned in the HPI. 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, KEITH with bipap use, R ankle problem that requires pt to wear a splint at times Last Myocardial Infarction Date:: 2010 History of Any Multi-Drug Resistant Organisms: None Reported Past Surgical History: Cholecystectomy, Heart Catheterization With Stent, Joint Replacement, Orthopedic Surgery, Tonsillectomy Additional Past Surgical History / Comment(s): BILAT TKA AND DANIELLE, BILAT KNEE SCOPES, COLONOSCOPIES Past Anesthesia/Blood Transfusion Reactions: No Reported Reaction Date of Last Stent Placement:: 2010 Past Psychological History: No Psychological Hx Reported Smoking Status: Never smoker Past Alcohol Use History: Occasional - Past Family History Mother Family Medical History: Cancer Additional Family Medical History / Comment(s): Mother of breast cancer at the age of 79yrs. Father Additional Family Medical History / Comment(s): Father had heart problems. He had coronary valve replacement. He at the age of 83 yrs. Medications and Allergies Home Medications Medication Instructions Recorded Confirmed Type ALPRAZolam [Xanax] 1 mg PO HS PRN 04/15/15 02/20/21 History Apixaban [Eliquis] 5 mg PO BID 04/15/15 02/20/21 History Aspirin [Adult Low Dose Aspirin EC] 81 mg PO DAILY 04/09/16 02/20/21 History Latanoprost Ophth [Xalatan 0.005%] 1 drops BOTH EYES HS ml 04/13/16 02/20/21 Rx Cholecalciferol [Vitamin D3 (25 5,000 unit PO DAILY 05/07/19 02/20/21 History Mcg = 1000 Iu)] Furosemide [Lasix] 20 mg PO Q48H 05/07/19 02/20/21 History allopurinoL [Zyloprim] 100 mg PO DAILY 05/07/19 02/20/21 History Acetaminophen-Codeine 300-30mg 1 tab PO Q6H PRN 01/20/21 02/20/21 History [Tylenol w/codeine #3] Lisinopril [Prinivil] 5 mg PO HS 01/20/21 02/20/21 History Atorvastatin [Lipitor] 80 mg PO DAILY 02/20/21 02/20/21 History Dicyclomine [Bentyl] 20 mg PO AC-TID 02/20/21 02/20/21 History Metoclopramide [Reglan] 5 mg PO ACHS 02/20/21 02/20/21 History Metoprolol Tartrate [Lopressor] 50 mg PO DAILY@1800 02/20/21 02/20/21 History Metoprolol Tartrate [Lopressor] 100 mg PO DAILY@0800 02/20/21 02/20/21 History Pantoprazole Sodium [Protonix] 40 mg PO DAILY 02/20/21 02/20/21 History predniSONE [Deltasone] See Taper PO DIRECTED PRN 02/20/21 02/20/21 History Allergies Allergy/AdvReac Type Severity Reaction Status Date / Time No Known Allergies Allergy Verified 02/20/21 14:09 Physical Exam Vitals: Vital Signs Temp Pulse Resp BP Pulse Ox 02/20/21 14:57 98.4 F 110 H 20 123/74 99 02/20/21 12:45 99.2 F 144 H 18 115/72 97 Intake and Output 02/20/21 02/20/21 02/20/21 06:59 14:59 22:59 Other: Weight 127.006 kg General: The patient is awake and alert, in no distress Eye: there is normal conjunctiva bilaterally. Neck: The neck is supple, there is no JVD. Cardiovascular: Normal S1-S2, no S3-S4, no murmurs. Respiratory: Lungs clear to auscultation bilaterally Gastrointestinal: Abdomen is soft, nontender Musculoskeletal: There is no pedal edema. Neurological:. Speech is normal. Skin: Skin is warm and dry Results CBC & Chem 7: 02/20/21 13:08 02/20/21 13:08 Labs: Abnormal Lab Results - Last 24 Hours (Table) 02/20/21 02/20/21 02/20/21 Range/Units 13:08 13:08 13:08 Plt Count 136 L (150-450) k/uL PT 12.3 H (9.0-12.0) sec INR 1.2 H (<1.2) D-Dimer 1.11 H (<0.60) mg/L FEU BUN 26 H (9-20) mg/dL Creatinine 1.61 H (0.66-1.25) mg/dL Glucose 105 H (74-99) mg/dL Assessment and Plan Assessment: 1. Atrial fibrillation with rapid ventricular response. Home dose of met oprolol resumed. We will continue telemetry monitoring. Patient is hemodynamically stable. I would check thyroid function test and order echocardiogram. Patient informed me that he had an unsuccessful cardioversion in the past. Cardiology consulted for further evaluation. 2. Coronary artery disease with prior stent placement 3. Chronic medical problems: Hypertension, hyperlipidemia, morbid obesity Expected length of stay less than 2 nights
[2021-02-20] MEDS: METOCLOPRAMIDE 5 MG TAB PO SCH ×2 (17:31→19:52)
[2021-02-20] MEDS: DICYCLOMINE 20 MG TAB PO SCH (17:32)
[2021-02-20] MEDS ORDERED: METOPROLOL TARTRATE 50 MG TAB PO SCH (18:00)
[2021-02-20] MEDS: APIXABAN 5 MG TAB PO SCH (19:52)
[2021-02-20] MEDS: lisinopriL 5 MG TAB PO SCH (19:52)
[2021-02-20] MEDS: Acetaminophen-Codeine 300-30mg TAB PO PRN (19:54)
[2021-02-20] MEDS: LATANOPROST 0.005% OPHTH DROPS 2.5 ML BTL BOTH EYES SCH (20:39)
--- NOTE | 2021-02-20 21:46 | ECHOF ---
Referral Reason:sob, elevated bnp MEASUREMENTS -------- HEIGHT: 182.9 cm WEIGHT: 127.0 kg BP: IVSd: 1.3 cm (0.6 - 1.1) LVIDd: 5.4 cm (3.9 - 5.3) LVPWd: 1.5 cm (0.6 - 1.1) EDV(Teich): 143 ml IVSs: 1.7 cm LVIDs: 4.4 cm LVPWs: 2.1 cm %IVS Thck: 27 % ESV(Teich): 88 ml EF(Teich): 38 % %FS: 19 % SV(Teich): 55 ml LALs A4C: 7.4 cm LAAs A4C: 34.6 cm LAESV A-L A4C: 136 ml LAESV MOD A4C: 129 ml LALs A2C: 7.3 cm LAAs A2C: 33.6 cm LAESV A-L A2C: 132 ml LAESV MOD A2C: 127 ml LAESV(A-L): 135 ml LAESV Index (A-L): 55.04 ml/m EPSS: 1.6 cm TR Vmax: 2.73 m/s TR maxP.73 mmHg RAP: 5.00 mmHg RVSP: 34.73 mmHg MV EF SLOPE: 117.41 mm/s (70 - 150) MV EXCURSION: 17.72 mm (> 18.000) FINDINGS -------- Atrial fibrillation. This was a techncally difficult study with suboptimal views, , Definity utilized for enhancement of i mages. The left ventricular size is normal. There is mild concentric left ventricular hypertrophy. Overa ll left ventricular systolic function is moderate-severely impaired with, an EF between 30 - 35 %. The right ventricle is normal in size. LA is severely dilated >40 ml/m2 The right atrial size is normal. Lumason used The aortic valve was not well visualized. Mild mitral regurgitation is present. Mild tricuspid regurgitation present. There is mild pulmonary hypertension. The right ventricular systolic pressure, as measured by Doppler, is 34.73mmHg. The pulmonic valve was not well visualized. There is no pericardial effusion. CONCLUSIONS -------- 1. This was a techncally difficult study with suboptimal views, , Definity utilized for enhancement o f images. 2. The left ventricular size is normal. 3. There is mild concentric left ventricular hypertrophy. 4. Overall left ventricular systolic function is moderate-severely impaired with, an EF between 30 - 35 %. 5. The right ventricle is normal in size. 6. LA is severely dilated >40 ml/m2 7. The right atrial size is normal. 8. Lumason used 9. The aortic valve was not well visualized. 10. Mild mitral regurgitation is present. 11. Mild tricuspid regurgitation present. 12. There is mild pulmonary hypertension. 13. The right ventricular systolic pressure, as measured by Doppler, is 34.73mmHg. 14. The pulmonic valve was not well visualized. 15. There is no pericardial effusion. IMAGE CONSULTANT: Kadie Lorenzo RDCS
[2021-02-21] MEDS: Acetaminophen-Codeine 300-30mg TAB PO PRN ×3 (02:14→23:35)
[2021-02-21] MEDS: METOCLOPRAMIDE 5 MG TAB PO SCH ×4 (06:26→20:19)
[2021-02-21] MEDS: PANTOPRAZOLE 40 MG TABLET PO SCH (06:27)
[2021-02-21] MEDS: DICYCLOMINE 20 MG TAB PO SCH ×3 (06:27→17:04)
[2021-02-21] MEDS ORDERED: METOPROLOL TARTRATE 50 MG TAB PO SCH (08:00)
[2021-02-21] MEDS: ASPIRIN 81 MG PO SCH (08:08)
[2021-02-21] MEDS: ATORVASTATIN 80 MG TAB PO SCH (08:08)
[2021-02-21] MEDS: allopurinoL 100 MG TAB PO SCH (08:08)
[2021-02-21] MEDS: CHOLECALCIFEROL 25 MCG (1000 IU) TABLET PO SCH (08:09)
[2021-02-21] MEDS: APIXABAN 5 MG TAB PO SCH ×2 (08:09→20:18)
--- NOTE | 2021-02-21 12:08 | P.CRDCN ---
History of Present Illness History of present illness: HISTORY OF PRESENTING ILLNESS This is a pleasant 71-year-old male past medical history significant for coronary artery disease status post stent placement to the mid and proximal circumflex, persistent atrial fibrillation on long-term anticoagulation, hypertension, dyslipidemia, chronic kidney disease, ventricular arrhythmias (PVCs and NSVT), and obstructive sleep apnea. He follows in the office with Dr. Fields. We have been asked to see in consultation for atrial fibrillation with rapid ventricular response. Patient is seen and examined at bedside, he presents to the emergency department with complaints of shortness of breath and palpitations. Patient states that over the past 2 weeks he has been feeling short of breath with exertion and been having palpitations. He didn't follow up with Dr. Fields in the office as metoprolol was increased to 100 mg in the morning and 50 mg in the evening. He states yesterday he was walking to the mailbox and states that her shortness of breath continued to get worse so he decided to present to the emergency department. He denies any chest pain, lightheadedness, dizziness, syncope. He continues to have lower extremity edema. He states he is compliant with his CPAP at home every night. He states he is compliant with his medication. He denies history of Diabetes, stroke. He is a non/never smoker. He states his lower extremity edema is not worse. He denies symptoms of orthopnea or PND. Per the ER notes, patient's HR was in the 140s, no additional IV meds given, His heart rates improved to 110s. He states he has been taken prednisone taper recently. DIAGNOSTICS EKG reveals atrial fibrillation heart rate 113 Telemetry tracings indicate atrial fibrillation with rapid ventricular response HR 120-150s Chest xray No evidence of active cardiopulmonary disease. Laboratory reviewed, WBC 8.1, hemoglobin 14.5, platelets 136, sodium 140, potassium 4.4, BUN 26, serum creatinine 1.6, magnesium 1.8, troponin negative 3, proBNP 2090, TSH within normal limits Current home cardiac medications include metoprolol tartrate 100 mg in the morning, 50 mg at night, lisinopril 5 mg daily, Lasix 20 mg every 48 hours, atorvastatin 80 mg daily, aspirin 81 mg daily, Eliquis 5 mg twice a day Echocardiogram revealed an EF of 30-35%, LA severely dilated, mild mitral regurgitation, mild tricuspid practitioner note mild pulmonary hypertension. REVIEW OF SYSTEMS At the time of my exam: CONSTITUTIONAL: Denies fever or chills. CARDIOVASCULAR: positive shortness of breath, positive palpitations Denies chest pain, orthopnea, PND RESPIRATORY: Denies cough. GASTROINTESTINAL: Denies abdominal pain, diarrhea, constipation, nausea or vom iting. MUSCULOSKELETAL: Denies myalgias. NEUROLOGIC: Denies numbness, tingling, headacbe or weakness. ENDOCRINE: Denies fatigue, weight change, polydipsia or polyurina. GENITOURINARY: Denies burning, hematuria or urgency with micturation. HEMATOLOGIC: Denies history of anemia or bleeding. PHYSICAL EXAMINATION CONSTITUTIONAL: No apparent distress. HEENT: Head is normocephalic. Pupils are equal, round. Sclerae anicteric. Mucous membranes of the mouth are moist. No JVD. No carotid bruit. CHEST EXAMINATION: Lungs are clear to auscultation bilaterally. No chest wall tenderness is noted on palpation or with deep breathing. HEART EXAMINATION: Irregular rate and rhythm. S1, S2 heard. Systolic murmur noted ABDOMEN: Soft, nontender. Positive bowel sounds. EXTREMITIES: 2+ peripheral pulses, +Bilateral lower extremity discoloration. +Bilateral 2+ lower extremity edema, he does have some calf tenderness. NEUROLOGIC EXAMINATION: Patient is awake, alert and oriented x3. 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 PLAN Increase metopoprolol tartrate 100mg BID Will monitor patient's HR and may need to add amiodarone if patient continues to be uncontrolled Continue PO lasix daily Continue home cardiac medications Further recommendations based on clinical course Nurse Practitioner note has been reviewed, I agree with a documented findings and plan of care. Patient was seen and examined. 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, KEITH with bipap use, R ankle problem that requires pt to wear a splint at times Last Myocardial Infarction Date:: 2010 History of Any Multi-Drug Resistant Organisms: None Reported Past Surgical History: Cholecystectomy, Heart Catheterization With Stent, Joint Replacement, Orthopedic Surgery, Tonsillectomy Additional Past Surgical History / Comment(s): BILAT TKA AND DANIELLE, BILAT KNEE SCOPES, COLONOSCOPIES Past Anesthesia/Blood Transfusion Reactions: No Reported Reaction Date of Last Stent Placement:: 2010 Past Psychological History: No Psychological Hx Reported Smoking Status: Never smoker Past Alcohol Use History: Occasional - Past Family History Mother Family Medical History: Cancer Additional Family Medical History / Comment(s): Mother of breast cancer at the age of 79yrs. Father Additional Family Medical History / Comment(s): Father had heart problems. He had coronary valve replacement. He at the age of 83 yrs. Medications and Allergies Home Medications Medication Instructions Recorded Confirmed Type ALPRAZolam [Xanax] 1 mg PO HS PRN 04/15/15 02/20/21 History Apixaban [Eliquis] 5 mg PO BID 04/15/15 02/20/21 History Aspirin [Adult Low Dose Aspirin EC] 81 mg PO DAILY 04/09/16 02/20/21 History Latanoprost Ophth [Xalatan 0.005%] 1 drops BOTH EYES HS ml 04/13/16 02/20/21 Rx Cholecalciferol [Vitamin D3 (25 5,000 unit PO DAILY 05/07/19 02/20/21 History Mcg = 1000 Iu)] Furosemide [Lasix] 20 mg PO Q48H 05/07/19 02/20/21 History allopurinoL [Zyloprim] 100 mg PO DAILY 05/07/19 02/20/21 History Acetaminophen-Codeine 300-30mg 1 tab PO Q6H PRN 01/20/21 02/20/21 History [Tylenol w/codeine #3] Lisinopril [Prinivil] 5 mg PO HS 01/20/21 02/20/21 History Atorvastatin [Lipitor] 80 mg PO DAILY 02/20/21 02/20/21 History Dicyclomine [Bentyl] 20 mg PO AC-TID 02/20/21 02/20/21 History Metoclopramide [Reglan] 5 mg PO ACHS 02/20/21 02/20/21 History Metoprolol Tartrate [Lopressor] 50 mg PO DAILY@1800 02/20/21 02/20/21 History Metoprolol Tartrate [Lopressor] 100 mg PO DAILY@0800 02/20/21 02/20/21 History Pantoprazole Sodium [Protonix] 40 mg PO DAILY 02/20/21 02/20/21 History predniSONE [Deltasone] See Taper PO DIRECTED PRN 02/20/21 02/20/21 History Allergies Allergy/AdvReac Type Severity Reaction Status Date / Time No Known Allergies Allergy Verified 02/20/21 14:09 Physical Exam Vitals: Vital Signs Temp Pulse Pulse Resp BP BP Pulse Ox 02/21/21 03:55 98 F 106 H 17 114/66 95 02/20/21 22:40 91 19 127/89 98 02/20/21 19:50 98.7 F 107 H 20 136/88 96 02/20/21 17:43 18 02/20/21 16:00 98 F 110 H 18 144/87 97 02/20/21 15:56 105 H 20 128/79 96 02/20/21 14:57 98.4 F 110 H 20 123/74 99 02/20/21 12:45 99.2 F 144 H 18 115/72 97 Intake and Output 02/20/21 02/20/21 02/21/21 14:59 22:59 06:59 Intake Total 200 Output Total 120 Balance 200 -120 Intake: Oral 200 Output: Urine 120 Other: # Voids 1 1 Weight 127.006 kg 132.4 kg Results 02/20/21 13:08 02/20/21 13:08 Cardiac Enzymes 02/20/21 02/20/21 02/20/21 Range/Units 13:08 13:08 15:20 AST 25 (17-59) U/L Troponin I 0.017 0.016 (0.000-0.034) ng/mL 02/20/21 Range/Units 18:45 AST (17-59) U/L Troponin I 0.016 (0.000-0.034) ng/mL Coagulation 02/20/21 Range/Units 13:08 PT 12.3 H (9.0-12.0) sec APTT 25.9 (22.0-30.0) sec CBC 02/20/21 Range/Units 13:08 WBC 8.1 (3.8-10.6) k/uL RBC 4.52 (4.30-5.90) m/uL Hgb 14.5 (13.0-17.5) gm/dL Hct 43.7 (39.0-53.0) % Plt Count 136 L (150-450) k/uL Comprehensive Metabolic Panel 02/20/21 Range/Units 13:08 Sodium 140 (137-145) mmol/L Potassium 4.4 (3.5-5.1) mmol/L Chloride 105 (98-107) mmol/L Carbon Dioxide 25 (22-30) mmol/L BUN 26 H (9-20) mg/dL Creatinine 1.61 H (0.66-1.25) mg/dL Glucose 105 H (74-99) mg/dL Calcium 9.5 (8.4-10.2) mg/dL AST 25 (17-59) U/L ALT 21 (4-49) U/L Alkaline Phosphatase 58 (38-126) U/L Total Protein 6.3 (6.3-8.2) g/dL Albumin 4.0 (3.5-5.0) g/dL Current Medications Generic Name Dose Route Start Last Admin Trade Name Freq PRN Reason Stop Dose Admin Acetaminophen/Codeine Phosphate 1 each 02/20/21 14:39 02/21/21 02:14 Acetaminophen-Codeine 300-30mg Tab PO 1 each Q6H PRN Administration Pain Allopurinol 100 mg 02/21/21 09:00 Allopurinol 100 Mg Tab PO DAILY ASHLEY Alprazolam 1 mg 02/20/21 14:39 Alprazolam 1 Mg Tab PO HS PRN Anxiety Apixaban 5 mg 02/20/21 21:00 02/20/21 19:52 Apixaban 5 Mg Tab PO 5 mg BID ASHLEY Administration Protocol Aspirin 81 mg 02/21/21 09:00 Aspirin 81 Mg PO DAILY [facility] Atorvastatin Calcium 80 mg 02/21/21 09:00 Atorvastatin 80 Mg Tab PO DAILY [facility] Cholecalciferol 125 mcg 02/21/21 09:00 Cholecalciferol 25 Mcg (1000 Iu) Tablet PO DAILY ASHLEY Dicyclomine HCl 20 mg 02/20/21 17:30 02/21/21 06:27 Dicyclomine 20 Mg Tab PO 20 mg AC-TID ASHLEY Administration Furosemide 20 mg 02/20/21 15:00 02/20/21 15:08 Furosemide 20 Mg Tab PO 20 mg Q48H ASHLEY Administration Latanoprost 1 drops 02/20/21 21:00 02/20/21 20:39 Latanoprost 0.005% Ophth Drops 2.5 Ml Btl BOTH EYES 1 drops HS ASHLEY Administration Lisinopril 5 mg 02/20/21 21:00 02/20/21 19:52 Lisinopril 5 Mg Tab PO 5 mg HS ASHLEY Administration Metoclopramide HCl 5 mg 02/20/21 17:30 02/21/21 06:26 Metoclopramide 5 Mg Tab PO 5 mg ACHS ASHLEY Administration Metoprolol Tartrate 100 mg 02/21/21 08:00 Metoprolol Tartrate 50 Mg Tab PO DAILY@0800 ASHLEY Metoprolol Tartrate 50 mg 02/20/21 18:00 02/20/21 17:31 Metoprolol Tartrate 50 Mg Tab PO 50 mg DAILY@1800 ASHLEY Administration Naloxone HCl 0.2 mg 02/20/21 14:37 Naloxone 0.4 Mg/Ml 1 Ml Vial IV Q2M PRN Opioid Reversal Pantoprazole Sodium 40 mg 02/21/21 07:30 02/21/21 06:27 Pantoprazole 40 Mg Tablet PO 40 mg [id number] ASHLEY Administration Intake and Output 02/20/21 02/20/21 02/21/21 14:59 22:59 06:59 Intake Total 200 Output Total 120 Balance 200 -120 Intake: Oral 200 Output: Urine 120 Other: # Voids 1 1 Weight 127.006 kg 132.4 kg Patient Weight 02/21/21 06:59 Weight 132.4 kg 02/20/21 13:08 02/20/21 13:08
[2021-02-21] MEDS ORDERED: NITROGLYCERIN SL TABS 0.4 MG TAB SUBLINGUAL ONE (16:43)
[2021-02-21] MEDS: NITROGLYCERIN SL TABS 0.4 MG TAB SUBLINGUAL PRN (16:57)
--- NOTE | 2021-02-21 18:54 | P.PN ---
<Luciano Olivares - Last Filed: 02/21/21 18:45> Subjective Progress Note Date: 02/21/21 Hospital course: Patient is a 71-year-old male with a past medical history of chronic persistent atrial fibrillation on anticoagulation with Eliquis, chronic kidney disease stage III, and obstructive sleep apnea BiPAP dependent nightly. Presented to the emergency department on 02/20/21 with a chief complaint of palpitations accompanied by shortness of breath and diaphoresis. Upon arrival to the emergency department he was found to be in atrial fibrillation with RVR sustaining and 140s. EKG completed showing A. fib RVR with a ventricular rate of 113 bpm. Chest x-ray was completed negative for acute cardiopulmonary process. Troponins trended 0.017, 0.016, and 0.016. TSH 1.650. Echocardiogram completed showing moderately to severely impaired EF between 30 and 35%. Patient is admitted under our services with consultation to cardiology. Physical exam: Patient seen and fully evaluated at the bedside this morning. He reports continued episodes of intermittent palpitations accompanied by shortness of breath and diaphoresis. Patient currently sitting up in chair with respirations even, regular, and unlabored. He denies having any chest pain or shortness of breath at rest. Vital signs reviewed and stable. General: Nontoxic, no distress and appears stated age. Derm: Skin warm and dry, normal coloration for ethnicity. Head: Atraumatic, normocephalic and symmetric. Eyes: EOMs intact, no lid lag, and anicteric sclera Mouth: no lip lesions, mucus membranes moist Cardiovascular: Irregularly irregular rhythm, no murmur, positive posterior tibial pulses bilaterally, and cap refill < 2 seconds. Lungs: Respirations even, regular, and unlabored on room air. Lungs CTA bilaterally, no rhonchi, no rales, no wheezing, and no accessory muscle usage. Abdominal: soft, nontender to palpation, no guarding, no appreciable organomegaly Ext: ROM intact. No gross muscle atrophy, 2+ pitting bilateral lower extremity edema, no contractures Neuro: Speech clear, face symmetrical and CN II-XII grossly intact with no noted focal neuro deficits Psych: Alert and oriented to person, place, time, and situation. Appropriate and pleasant affect. Assessment and Plan of Care: Atrial fibrillation with RVR, currently controlled -Cardiology following -Cardiology Increased metoprolol 100 mg twice a day -Continue telemetry monitoring -Continue Lasix 20 mg daily -Continue anticoagulation with Eliquis Chronic kidney disease stage III -CMP consistent with PKD stage III with BUN 26, creatinine 1.61, and GFR of 42. -Patient at baseline renal function, we'll continue to monitor with repeat a.m. labs. Hyperlipidemia -Continue daily medication regimen with atorvastatin 80 mg nightly. CODE STATUS: Full code DVT prophylaxis: Tiffaniequrandall Discussed with: Patient and RN Anticipated discharge date: Clinical course to determine Anticipated discharge place: Home A total of 40 minutes was spent on the care of this complex patient more than 50% of the time was spent in counseling and care coordination. Objective - Vital Signs Vital signs: Vital Signs Temp 98.4 F 02/21/21 08:06 Pulse 115 H 02/21/21 08:06 Resp 20 02/21/21 08:06 BP 105/59 02/21/21 08:06 Pulse Ox 94 L 02/21/21 08:06 Intake & Output 02/20/21 02/21/21 02/21/21 18:59 06:59 18:59 Intake Total 200 Output Total 120 Balance 200 -120 Weight 127.006 kg 132.4 kg Intake: Oral 200 Output: Urine 120 Other: # Voids 1 - Labs CBC & Chem 7: 02/20/21 13:08 02/20/21 13:08 Labs: Abnormal Lab Results - Last 24 Hours (Table) 02/20/21 02/20/21 02/20/21 Range/Units 13:08 13:08 13:08 Plt Count 136 L (150-450) k/uL PT 12.3 H (9.0-12.0) sec INR 1.2 H (<1.2) D-Dimer 1.11 H (<0.60) mg/L FEU BUN 26 H (9-20) mg/dL Creatinine 1.61 H (0.66-1.25) mg/dL Glucose 105 H (74-99) mg/dL <Amparo Boothe - Last Filed: 02/21/21 20:01> Subjective Luciano Olivares NP rendered care for this patient independently, reviewed the findings and plan as documented in the note above. I did not physically speak with or examine the patient on this date. Echocardiogram reviewed. Ejection fraction 30-35%. We'll await further cardiology recommendations. Additional diagnosis: Acute exacerbation of congestive heart failure. Currently on Lasix which was increased to daily. Will need to follow closely. Will need to discuss with cardiology whether ejection fraction of 30-35 is new versus old. Objective - Vital Signs Vital signs: Vital Signs Temp 98.3 F 02/21/21 15:17 Pulse 87 02/21/21 16:57 Resp 18 02/21/21 16:57 BP 114/74 02/21/21 16:57 Pulse Ox 95 02/21/21 16:57 Intake & Output 02/21/21 02/21/21 02/22/21 06:59 18:59 06:59 Intake Total 1560 Output Total 120 Balance -120 1560 Weight 132.4 kg Intake: Oral 1560 Output: Urine 120 Other: # Voids 1 - Labs CBC & Chem 7: 02/20/21 13:08 02/20/21 13:08
[2021-02-21] MEDS: lisinopriL 5 MG TAB PO SCH (20:19)
[2021-02-21] MEDS: METOPROLOL TARTRATE 50 MG TAB PO SCH (20:19)
[2021-02-21] MEDS: LATANOPROST 0.005% OPHTH DROPS 2.5 ML BTL BOTH EYES SCH (20:19)
[2021-02-21] MEDS: ALPRAZolam 1 MG TAB PO PRN (23:35)
[2021-02-22] MEDS: PANTOPRAZOLE 40 MG TABLET PO SCH (06:52)
[2021-02-22] MEDS: DICYCLOMINE 20 MG TAB PO SCH ×3 (06:53→16:53)
[2021-02-22] MEDS: METOCLOPRAMIDE 5 MG TAB PO SCH ×4 (06:53→20:02)
[2021-02-22 07:28] LABS: HCT 43.2 % (39.0-53.0); HGB 13.8 gm/dL (13.0-17.5); Hypochromasia Slight; MCH 32.1 pg (25.0-35.0); MCV 100.4 fL (80.0-100.0); Macrocytosis Slight; Mean Platelet Volume 8.3; Platelet Count 129 k/uL (150-450); RDW 14.7 % (11.5-15.5); WBC 6.4 k/uL (3.8-10.6)
[2021-02-22 07:45] LABS: Calcium 9.2 mg/dL (8.4-10.2); Magnesium 1.9 mg/dL (1.6-2.3); Potassium 4.5 mmol/L (3.5-5.1)
[2021-02-22] MEDS: allopurinoL 100 MG TAB PO SCH (09:04)
[2021-02-22] MEDS: ATORVASTATIN 80 MG TAB PO SCH (09:04)
[2021-02-22] MEDS: CHOLECALCIFEROL 25 MCG (1000 IU) TABLET PO SCH (09:04)
[2021-02-22] MEDS: METOPROLOL TARTRATE 50 MG TAB PO SCH ×2 (09:04→20:02)
[2021-02-22] MEDS: FUROSEMIDE 20 MG TAB PO SCH (09:04)
[2021-02-22] MEDS: ASPIRIN 81 MG PO SCH (09:04)
[2021-02-22] MEDS: APIXABAN 5 MG TAB PO SCH ×2 (09:04→20:02)
--- NOTE | 2021-02-22 10:51 | P.PN ---
<Luciano Olivares - Last Filed: 02/22/21 12:19> Subjective Progress Note Date: 02/22/21 Hospital course: Patient is a 71-year-old male with a past medical history of chronic persistent atrial fibrillation on anticoagulation with Eliquis, chronic kidney disease stage III, and obstructive sleep apnea BiPAP dependent nightly. Presented to the emergency department on 02/20/21 with a chief complaint of palpitations accompanied by shortness of breath and diaphoresis. Upon arrival to the emergency department he was found to be in atrial fibrillation with RVR sustaining and 140s. EKG completed showing A. fib RVR with a ventricular rate of 113 bpm. Chest x-ray was completed negative for acute cardiopulmonary process. Troponins trended 0.017, 0.016, and 0.016. TSH 1.650. Echocardiogram completed showing moderately to severely impaired EF between 30 and 35%. Patient is admitted under our services with consultation to cardiology. Physical exam: Patient seen and fully evaluated at the bedside this morning. He continues to have reported episodes of palpitations accompanied by shortness of breath and diaphoresis with movement. Patient states just bending over to put on his slipper/sock will cause him to become significantly short of breath, have palpitations, and become diaphoretic. Patient currently sitting up in chair with respirations even, regular, and unlabored on 2 L O2 via nasal cannula with SpO2 of 95%. He denies having any headache, lightheadedness, dizziness, chest pain, nausea, or vomiting. As reported above echocardiogram completed revealed moderately to severely impaired EF between 30 and 35%, discussed findings with landscape technician stating he will be evaluating further for possible cardiac catheterization. Awaiting further recommendations. Vital signs reviewed and stable. General: Nontoxic, no distress and appears stated age. Derm: Skin warm and dry, normal coloration for ethnicity. Head: Atraumatic, normocephalic and symmetric. Eyes: EOMs intact, no lid lag, and anicteric sclera Mouth: no lip lesions, mucus membranes moist Cardiovascular: Irregularly irregular rhythm, no murmur, positive posterior tibial pulses bilaterally, and cap refill < 2 seconds. Lungs: Respirations even, regular, and unlabored on room air. Lungs CTA bilaterally, no rhonchi, no rales, no wheezing, and no accessory muscle usage. Abdominal: soft, nontender to palpation, no guarding, no appreciable organomegaly Ext: ROM intact. No gross muscle atrophy, 2+ pitting bilateral lower extremity edema, no contractures Neuro: Speech clear, face symmetrical and CN II-XII grossly intact with no noted focal neuro deficits Psych: Alert and oriented to person, place, time, and situation. Appropriate and pleasant affect. Assessment and Plan of Care: Atrial fibrillation with RVR, currently controlled with a sustained ventricular rate 80s to 90s -Cardiology following -Cardiology Increased metoprolol 100 mg twice a day and added on amiodarone 400 mg twice daily. -Continue telemetry monitoring -Continue Lasix 20 mg daily -Continue anticoagulation with Eliquis Acute systolic congestive heart failure with a moderate to severely impaired EF between 30 and 35% -Echocardiogram completed showing moderately to severely impaired EF between 30 and 35%. -EF significantly decreased from previous echocardiogram completed 05/07/19 which revealed a low-normal ejection fraction between 50-55% -Discussed with landscape technician, states will be evaluating further for possible cardiac catheterization. -Continue Lasix 20 mg daily and Aldactone 25 mg daily was added as well. Chronic kidney disease stage III -CMP consistent with PKD stage III with BUN 26, creatinine 1.61, and GFR of 42. -Patient at baseline renal function, we'll continue to monitor with repeat a.m. labs. Hyperlipidemia -Continue daily medication regimen with atorvastatin 80 mg nightly. CODE STATUS: Full code DVT prophylaxis: Eliquis Discussed with: Patient and RN Anticipated discharge date: Clinical course to determine Anticipated discharge place: Home A total of 40 minutes was spent on the care of this complex patient more than 50% of the time was spent in counseling and care coordination. Objective - Vital Signs Vital signs: Vital Signs Temp 98.6 F 02/22/21 09:00 Pulse 97 02/22/21 09:00 Resp 18 02/22/21 09:00 BP 137/77 02/22/21 09:00 Pulse Ox 95 02/22/21 09:00 Intake & Output 02/21/21 02/22/21 02/22/21 18:59 06:59 18:59 Intake Total 1560 20 250 Balance 1560 20 250 Weight 130 kg Intake: IV 20 10 Invasive Line 1 20 10 Oral 1560 240 Other: Voiding Method Toilet Toilet # Voids 3 - Labs CBC & Chem 7: 02/22/21 06:57 02/22/21 06:57 Labs: Abnormal Lab Results - Last 24 Hours (Table) 02/22/21 02/22/21 Range/Units 06:57 06:57 MCV 100.4 H (80.0-100.0) fL Plt Count 129 L (150-450) k/uL BUN 23 H (9-20) mg/dL Creatinine 1.53 H (0.66-1.25) mg/dL <Amparo Boothe - Last Filed: 02/22/21 18:26> Subjective Luciano Olivares NP rendered care for this patient independently, reviewed the findings and plan as documented in the note above. I did not physically speak with or examine the patient on this date. Objective - Vital Signs Vital signs: Vital Signs Temp 98.2 F 02/22/21 15:00 Pulse 90 02/22/21 16:55 Resp 18 02/22/21 16:47 BP 103/67 02/22/21 16:55 Pulse Ox 92 L 02/22/21 16:55 Intake & Output 02/21/21 02/22/21 02/22/21 18:59 06:59 18:59 Intake Total 1560 20 500 Balance 1560 20 500 Weight 130 kg Intake: IV 20 20 Invasive Line 1 20 20 Oral 1560 480 Other: Voiding Method Toilet Toilet # Voids 3 2 - Labs CBC & Chem 7: 02/22/21 06:57 02/22/21 06:57 Labs: Abnormal Lab Results - Last 24 Hours (Table) 02/22/21 02/22/21 Range/Units 06:57 06:57 MCV 100.4 H (80.0-100.0) fL Plt Count 129 L (150-450) k/uL BUN 23 H (9-20) mg/dL Creatinine 1.53 H (0.66-1.25) mg/dL
--- NOTE | 2021-02-22 11:27 | P.PN ---
Subjective This is a pleasant 71-year-old male past medical history significant for coronary artery disease status post stent placement to the mid and proximal circumflex, persistent atrial fibrillation on long-term anticoagulation, hypertension, dyslipidemia, chronic kidney disease, ventricular arrhythmias (PVCs and NSVT), and obstructive sleep apnea. He follows in the office with Dr. Fields. We have been asked to see in consultation for atrial fibrillation with rapid ventricular response. Patient presents to the emergency department with complaints of shortness of breath and palpitations. Patient states that over the past 2 weeks he has been feeling short of breath with exertion and been having palpitations. He didn't follow up with Dr. Fields in the office as metoprolol was increased to 100 mg in the morning and 50 mg in the evening. He states yesterday he was walking to the mailbox and states that her shortness of breath continued to get worse so he decided to present to the emergency department. He denies any chest pain, lightheadedness, dizziness, syncope. He continues to have lower extremity edema. He states he is compliant with his CPAP at home every night. He states he is compliant with his medication. He denies history of Diabetes, stroke. He is a non/never smoker. He states his lower extremity edema is not worse. He denies symptoms of orthopnea or PND. Per the ER notes, patient's HR was in the 140s, no additional IV meds given, His heart rates improved to 110s. He states he has been taken prednisone taper recently discontinues 2 weeks ago. EKG reveals atrial fibrillation heart rate 113. Chest xray No evidence of active cardiopulmonary disease. Laboratory data on admission, WBC 8.1, hemoglobin 14.5, platelets 136, sodium 140, potassium 4.4, BUN 26, serum creatinine 1.6, magnesium 1.8, troponin negative 3, proBNP 2090, TSH within normal limits Echocardiogram this admission revealed an EF of 30-35%, LA severely dilated, mild mitral regurgitation, mild tricuspid regurgitation, mild pulmonary hypertension. Most recent echocardiogram prior was in 04/2019, EF 50-55%, LA severely dilated, mild mitral regurgitation, mild tricuspid regurgitation 02/22/2021: Patient seen and examined at bedside, no acute distress. He continues to have significant shortness of breath and palpitations with ambulation. He denies chest pain, lightheadedness or dizziness. Telemetry tracings indicate atrial fibrillation rates controlled when patient is resting, however with activity his HR 120-140s. blood pressure 137/77, heart rate 97, afebrile, maintaining saturations 95% on 2 L nasal cannula.laboratory data review WBC 6.4, hemoglobin 13.8, platelets 129, sodium 138, potassium 4.5, BUN 23, serum creatinine 1.5. Patient currently maintained on metoprolol tartrate 100 mg twice a day, Eliquis 5 mg twice a day, atorvastatin 80 mg daily, PO Lasix 20 mg daily, lisinopril 5 mg daily. PHYSICAL EXAMINATION CONSTITUTIONAL: No apparent distress. HEENT: Head is normocephalic. Pupils are equal, round. Mucous membranes of the mouth are moist. No JVD. CHEST EXAMINATION: Lungs are clear to auscultation bilaterally. No chest wall tenderness is noted on palpation or with deep breathing. HEART EXAMINATION: Irregular rate and rhythm. S1, S2 heard. Systolic murmur noted ABDOMEN: Soft, nontender. Positive bowel sounds. EXTREMITIES: 2+ peripheral pulses, +Bilateral lower extremity discoloration. +Bilateral 2+ lower extremity edema, he does have some calf tenderness. NEUROLOGIC EXAMINATION: Patient is awake, alert and oriented x3. ASSESSMENT Persistent atrial fibrillation with rapid ventricular response- on oil heaterman anticoagulation Eliquis Acute on chronic systolic heart failure with reduced EF 30-35%, prior EF 50-55%- Most likely tachycardic induced due to patient not having chest pain, no ischemic changes on EKG, cardiac enzymes negative x 3. Coronary artery disease status post stent placement to the mid and proximal circumflex History of hypertension Dyslipidemia Chronic kidney disease History of ventricular arrhythmias (PVCs and NSVT) Obstructive sleep apnea. PLAN Start amiodarone 400mg BID Start spironolactone 25mg daily Continue metopoprolol tartrate 100mg BID Continue PO lasix daily Continue Eliquis for thromboembolic protection Continue home cardiac medications Continue cardiac telemetry. Further recommendations based on clinical course Nurse Practitioner note has been reviewed, I agree with a documented findings and plan of care. Patient was seen and examined. Objective - Vital Signs Vital signs: Vital Signs Temp 98.6 F 02/22/21 09:00 Pulse 97 02/22/21 09:00 Resp 18 02/22/21 09:00 BP 137/77 02/22/21 09:00 Pulse Ox 95 02/22/21 09:00 Intake & Output 02/21/21 02/22/21 02/22/21 18:59 06:59 18:59 Intake Total 1560 20 250 Balance 1560 20 250 Weight 130 kg Intake: IV 20 10 Invasive Line 1 20 10 Oral 1560 240 Other: Voiding Method Toilet Toilet # Voids 3 - Labs CBC & Chem 7: 02/22/21 06:57 02/22/21 06:57 Labs: Abnormal Lab Results - Last 24 Hours (Table) 02/22/21 02/22/21 Range/Units 06:57 06:57 MCV 100.4 H (80.0-100.0) fL Plt Count 129 L (150-450) k/uL BUN 23 H (9-20) mg/dL Creatinine 1.53 H (0.66-1.25) mg/dL
[2021-02-22] MEDS: AMIODARONE 200 MG TAB PO SCH ×2 (11:32→20:02)
[2021-02-22] MEDS: SPIRONOLACTONE 25 MG TAB PO SCH (11:32)
[2021-02-22] MEDS ORDERED: NITROGLYCERIN SL TABS 0.4 MG TAB SUBLINGUAL PRN (16:39)
[2021-02-22] MEDS: NITROGLYCERIN SL TABS 0.4 MG TAB SUBLINGUAL PRN (16:43)
[2021-02-22] MEDS: lisinopriL 5 MG TAB PO SCH (20:02)
[2021-02-22] MEDS: LATANOPROST 0.005% OPHTH DROPS 2.5 ML BTL BOTH EYES SCH (20:03)
[2021-02-22] MEDS: Acetaminophen-Codeine 300-30mg TAB PO PRN (21:14)
[2021-02-22] MEDS: ALPRAZolam 1 MG TAB PO PRN (21:15)
[2021-02-23] MEDS: Acetaminophen-Codeine 300-30mg TAB PO PRN ×2 (04:50→20:05)
[2021-02-23] MEDS: PANTOPRAZOLE 40 MG TABLET PO SCH (06:32)
[2021-02-23] MEDS: METOCLOPRAMIDE 5 MG TAB PO SCH ×4 (06:32→20:05)
[2021-02-23] MEDS: DICYCLOMINE 20 MG TAB PO SCH ×3 (06:32→18:06)
[2021-02-23] MEDS: APIXABAN 5 MG TAB PO SCH ×2 (08:42→20:05)
[2021-02-23] MEDS: allopurinoL 100 MG TAB PO SCH (08:42)
[2021-02-23] MEDS: AMIODARONE 200 MG TAB PO SCH ×2 (08:42→20:05)
[2021-02-23] MEDS: ASPIRIN 81 MG PO SCH (08:42)
[2021-02-23] MEDS: ATORVASTATIN 80 MG TAB PO SCH (08:43)
[2021-02-23] MEDS: FUROSEMIDE 20 MG TAB PO SCH (08:43)
[2021-02-23] MEDS: METOPROLOL TARTRATE 50 MG TAB PO SCH ×2 (08:43→20:05)
[2021-02-23] MEDS: SPIRONOLACTONE 25 MG TAB PO SCH (08:43)
[2021-02-23] MEDS: CHOLECALCIFEROL 25 MCG (1000 IU) TABLET PO SCH (08:43)
--- NOTE | 2021-02-23 11:38 | P.PN ---
<Luciano Olivares - Last Filed: 02/23/21 11:22> Subjective Progress Note Date: 02/23/21 Hospital course: Patient is a 71-year-old male with a past medical history of chronic persistent atrial fibrillation on anticoagulation with Eliquis, chronic kidney disease stage III, and obstructive sleep apnea BiPAP dependent nightly. Presented to the emergency department on 02/20/21 with a chief complaint of palpitations accompanied by shortness of breath and diaphoresis. Upon arrival to the emergency department he was found to be in atrial fibrillation with RVR sustaining and 140s. EKG completed showing A. fib RVR with a ventricular rate of 113 bpm. Chest x-ray was completed negative for acute cardiopulmonary process. Troponins trended 0.017, 0.016, and 0.016. TSH 1.650. Echocardiogram completed showing moderately to severely impaired EF between 30 and 35%. Patient is admitted under our services with consultation to cardiology. Physical exam: Patient seen and fully evaluated at the bedside this morning. He reports his episodes of palpitations and shortness of breath seemed to have improved, however he also stated he has not been ambulatory to prevent this. Patient states he even slept in chair overnight because he has been having a pressure pushing up on his diaphragm which he believes is causing his shortness of breat h. Pt denies having any chest pain, palpitations, or feeling short of breath at rest at this time. He remains on 3 L O2 via nasal cannula with SpO2 of 95% order placed for home oxygen evaluation to obtain resting an ambulatory pulse ox. Pt does have a hx of KEITH BIPAP dependent nightly. Abdominal assessment positive for ventral hernia in which patient denies previously being diagnosed with. Order placed for CT abdomen without contrast at this time. Vital signs reviewed and stable. General: Nontoxic, no distress and appears stated age. Derm: Skin warm and dry, normal coloration for ethnicity. Head: Atraumatic, normocephalic and symmetric. Eyes: EOMs intact, no lid lag, and anicteric sclera Mouth: no lip lesions, mucus membranes moist Cardiovascular: Irregularly irregular rhythm, no murmur, positive posterior tibial pulses bilaterally, and cap refill < 2 seconds. Lungs: Respirations even, regular, and unlabored on room air. Lungs CTA bilaterally, no rhonchi, no rales, no wheezing, and no accessory muscle usage. Abdominal: Obese abdomen soft, nontender to palpation, no guarding, no appreciable organomegaly. Ventral hernia present upon patient sitting up Ext: ROM intact. No gross muscle atrophy, 1+ pitting bilateral lower extremity edema, no contractures Neuro: Speech clear, face symmetrical and CN II-XII grossly intact with no noted focal neuro deficits Psych: Alert and oriented to person, place, time, and situation. Appropriate and pleasant affect. Assessment and Plan of Care: Atrial fibrillation with RVR, currently controlled with a sustained ventricular rate 80s to 90s -Cardiology following, appreciate additional recommendations -Cardiology Increased metoprolol 100 mg twice a day and added on amiodarone 400 mg twice daily. -Continue telemetry monitoring -Continue Lasix 20 mg daily along with Aldactone 25 mg daily -Continue anticoagulation with Eliquis Acute systolic congestive heart failure with a moderate to severely impaired EF between 30 and 35% -Echocardiogram completed showing moderately to severely impaired EF between 30 and 35%. -EF significantly decreased from previous echocardiogram completed 05/07/19 which revealed a low-normal ejection fraction between 50-55% -Discussed with communication lecturer, states will be evaluating further for consideration of possible cardiac catheterization. -Continue Lasix 20 mg daily and Aldactone 25 mg daily. Chronic kidney disease stage III -CMP consistent with CKD stage III with BUN 23, creatinine 1.53, and GFR 44 -Patient at baseline renal function, we will continue to monitor with repeat a.m. labs. Hyperlipidemia -Continue daily medication regimen with atorvastatin 80 mg nightly. CODE STATUS: Full code DVT prophylaxis: Eliquis Discussed with: Patient and RN Anticipated discharge date: Clinical course to determine Anticipated discharge place: Home A total of 40 minutes was spent on the care of this complex patient more than 50% of the time was spent in counseling and care coordination. Objective - Vital Signs Vital signs: Vital Signs Temp 98.4 F 02/23/21 03:50 Pulse 88 02/23/21 03:50 Resp 18 02/23/21 03:50 BP 124/83 02/23/21 03:50 Pulse Ox 95 02/23/21 03:50 Intake & Output 02/22/21 02/23/21 02/23/21 18:59 06:59 18:59 Intake Total 500 10 238 Balance 500 10 238 Weight 129.8 kg Intake: IV 20 10 Invasive Line 1 20 10 Oral 480 238 Other: Voiding Method Toilet Toilet # Voids 2 2 - Labs CBC & Chem 7: 02/22/21 06:57 02/22/21 06:57 <TlAmparo Grimm - Last Filed: 02/23/21 19:41> Subjective Patient seen and examined independently. Patient was also seen by Luciano Olivares NP and case was discussed. I am in agreement with subjective, physical exam, assessment and plan as written above and amended below. He continues to have shortness of breath on lying flat. His chest is. He has difficulty taking a deep breath. We discussed this is consistent with a modified symptoms of systolic congestive heart failure. Necessitating imp ortance of using a recliner or chills at home as well as optimizing fluid status. Transitioned to IV Lasix 40 twice daily. Monitor creatinine closely. General: non toxic, no distress, appears at stated age Derm: warm, dry Head: atraumatic, normocephalic, symmetric Eyes: EOMI, no lid lag, anicteric sclera Mouth: no lip lesion, mucus membranes moist Cardiovascular: S1S2 reg, no murmur, positive posterior tibial pulse bilateral, positive JVD Lungs: Decreased breath sounds bilateral, no rhonchi, no rales , no accessory muscle use Abdominal: soft, nontender to palpation, no guarding, no appreciable organomegaly Ext: no gross muscle atrophy, 3+ edema, no contractures Neuro: CN II-XI grossly intact, no focal neuro deficits Psych: Alert, oriented, appropriate affect Objective - Vital Signs Vital signs: Vital Signs Temp 98.0 F 02/23/21 16:00 Pulse 84 02/23/21 16:00 Resp 20 02/23/21 16:00 BP 123/67 02/23/21 16:00 Pulse Ox 96 02/23/21 16:00 Intake & Output 02/23/21 02/23/21 02/24/21 06:59 18:59 06:59 Intake Total 10 958 Balance 10 958 Weight 129.8 kg Intake: IV 10 Invasive Line 1 10 Oral 958 Other: Voiding Method Toilet # Voids 2 - Labs CBC & Chem 7: 02/22/21 06:57 02/22/21 06:57
--- NOTE | 2021-02-23 12:22 | CT ---
EXAMINATION TYPE: CT abdomen wo con DATE OF EXAM: 02/23/2021 HISTORY: epigastric/diaphragmatic pressure CT DLP: 1442 mGycm. Automated Exposure Control for Dose Reduction was Utilized. TECHNIQUE: CT scan of the abdomen is performed without oral or IV contrast. COMPARISON: CT abdomen and pelvis February 20, 2018 FINDINGS: Within the limitations of a non-contrast study, the following observations are made. LUNG BASES: Elevated right hemidiaphragm redemonstrated. There is more prominent moderate bibasilar l inear scarring and/or atelectasis on current study. Some calcifications at level of the mitral and ao rtic valve along with some coronary artery calcifications are redemonstrated. Mild cardiomegaly on cu rrent study. LIVER/GB: Cholecystectomy clips are now present. PANCREAS: No significant abnormality is seen. SPLEEN: Small splenule anterior superior aspect axial image 20 is redemonstrated. ADRENALS: No significant abnormality is seen. KIDNEYS: Asymmetric diminished size and atrophy to the right kidney redemonstrated. Cortical thinning left kidney redemonstrated. There are simple appearing thin-walled cysts redemonstrated scattered th roughout both kidneys. No hydronephrosis seen bilaterally. BOWEL: Stomach poorly distended and suboptimally evaluated. No suspicious small or large bowel dilata tion. Normal-appearing appendix in the right abdomen. LYMPH NODES: No greater than 1cm abdominal lymph nodes are appreciated. OSSEOUS STRUCTURES: Metallic hardware from bilateral hip surgery noted on localizer. Persistent stabl e grade 1 anterolisthesis L5 on S1. Persistent fairly severe disc space narrowing at this level. Mild -to-moderate multilevel spurring through the remainder of the thoracolumbar spine. OTHER: No significant additional abnormality is seen. IMPRESSION: No hiatal hernia. No new or suspicious acute findings evident.
--- NOTE | 2021-02-23 12:23 | P.PN ---
Subjective Progress Note Date: 02/23/21 Principal diagnosis: Paroxysmal atrial fibrillation This is a 71-year-old gentleman was admitted to the hospital was atrial fibrillation with rapid ventricular response which is new diagnosis to him. Also he was found to have cardiomyopathy was EF around 35%. His prior EF was 50-55%. He was ruled out for acute coronary event with normal troponin. He was seen this morning. He is experiencing abdominal discomfort but he does have large abdominal wall hernia. He is in process of having a computed tomography scan. He remains in atrial fibrillation was controlled heart rate and currently is on amiodarone 400 mg by mouth twice a day along with Aldactone and also he continues to be on Lasix as well as. The creatinine seems to be stable. He is on oral anticoagulation regarding the atrial fibrillation. Objective - Vital Signs Vital signs: Vital Signs Temp 98.0 F 02/23/21 08:00 Pulse 86 02/23/21 08:00 Resp 18 02/23/21 08:00 BP 125/81 02/23/21 08:00 Pulse Ox 95 02/23/21 08:00 Intake & Output 02/22/21 02/23/21 02/23/21 18:59 06:59 18:59 Intake Total 500 10 238 Balance 500 10 238 Weight 129.8 kg Intake: IV 20 10 Invasive Line 1 20 10 Oral 480 238 Other: Voiding Method Toilet Toilet # Voids 2 2 - Constitutional General appearance: Present: no acute distress - Respiratory Respiratory: bilateral: diminished - Cardiovascular Rhythm: irregularly irregular Heart sounds: normal: S1, S2 - Labs CBC & Chem 7: 02/22/21 06:57 02/22/21 06:57 Assessment and Plan Assessment: Assessment #1 paroxysmal atrial fibrillation. The patient is in A. fib with controlled heart rate #2 cardiomyopathy likely nonischemic and related to tachycardia. #3 heart failure with a reduced ejection fraction exacerbation #4 morbid obesity #5 chronic kidney disease #6 coronary artery disease Plan #1 continue the current medical regimen #2 continue Lasix for additional 24 hours #3 possible discharge in the next 24 hours if the computed tomography scan is unremarkable #4 follow-up with the patient
[2021-02-23] MEDS: FUROSEMIDE 10 MG/ML 4 ML VIAL IV SCH ×2 (12:30→22:24)
[2021-02-23] MEDS: lisinopriL 5 MG TAB PO SCH (20:05)
[2021-02-23] MEDS: LATANOPROST 0.005% OPHTH DROPS 2.5 ML BTL BOTH EYES SCH (20:06)
[2021-02-23 23:18] VITALS: RESP 18
[2021-02-24] MEDS: ALPRAZolam 1 MG TAB PO PRN (01:24)
[2021-02-24] MEDS: Acetaminophen-Codeine 300-30mg TAB PO PRN ×2 (01:24→06:42)
[2021-02-24] MEDS: DICYCLOMINE 20 MG TAB PO SCH ×2 (06:18→11:50)
[2021-02-24] MEDS: METOCLOPRAMIDE 5 MG TAB PO SCH ×2 (06:18→11:50)
[2021-02-24] MEDS: PANTOPRAZOLE 40 MG TABLET PO SCH (06:18)
[2021-02-24 07:21] LABS: Calcium 9.2 mg/dL (8.4-10.2); Magnesium 1.8 mg/dL (1.6-2.3); Potassium 4.1 mmol/L (3.5-5.1)
[2021-02-24 07:39] LABS: HCT 39.9 % (39.0-53.0); HGB 13.4 gm/dL (13.0-17.5); MCH 32.5 pg (25.0-35.0); MCHC 33.6 g/dL (31.0-37.0); MCV 96.7 fL (80.0-100.0); Mean Platelet Volume 7.7; Platelet Count 163 k/uL (150-450); RBC 4.13 m/uL (4.30-5.90); RDW 14.8 % (11.5-15.5)
[2021-02-24] MEDS: AMIODARONE 200 MG TAB PO SCH (08:15)
[2021-02-24] MEDS: allopurinoL 100 MG TAB PO SCH (08:15)
[2021-02-24] MEDS: CHOLECALCIFEROL 25 MCG (1000 IU) TABLET PO SCH (08:15)
[2021-02-24] MEDS: APIXABAN 5 MG TAB PO SCH (08:15)
[2021-02-24] MEDS: SPIRONOLACTONE 25 MG TAB PO SCH (08:15)
[2021-02-24] MEDS: ASPIRIN 81 MG PO SCH (08:15)
[2021-02-24] MEDS: FUROSEMIDE 10 MG/ML 4 ML VIAL IV SCH (08:15)
[2021-02-24] MEDS: ATORVASTATIN 80 MG TAB PO SCH (08:16)
[2021-02-24] MEDS: METOPROLOL TARTRATE 50 MG TAB PO SCH ×2 (08:16→08:17)
--- NOTE | 2021-02-24 08:56 | P.PN ---
Subjective Progress Note Date: 02/24/21 Principal diagnosis: Paroxysmal atrial fibrillation This is a 71-year-old gentleman was admitted to the hospital was atrial fibrillation with rapid ventricular response which is new diagnosis to him. Also he was found to have cardiomyopathy was EF around 35%. His prior EF was 50-55%. He was ruled out for acute coronary event with normal troponin. The patient was seen this morning. He seems to be feeling better. No chest pain or chest discomfort and no abdominal pain or abdominal discomfort. Computed tomography scan of the abdomen was performed yesterday showed no acute finding. His heart rate seems to be under good control. He is on oral anticoagulation. From the cardiac vascular standpoint, the patient can be discharged home Objective - Vital Signs Vital signs: Vital Signs Temp 97.9 F 02/24/21 03:50 Pulse 81 02/24/21 03:50 Resp 18 02/24/21 03:50 BP 115/70 02/24/21 03:50 Pulse Ox 99 02/24/21 03:50 Intake & Output 02/23/21 02/24/21 02/24/21 18:59 06:59 18:59 Intake Total 958 Balance 958 Weight 129 kg Intake: Oral 958 Other: # Voids 3 - Constitutional General appearance: Present: no acute distress - Respiratory Respiratory: bilateral: diminished - Cardiovascular Rhythm: irregularly irregular Heart sounds: normal: S1, S2 - Labs CBC & Chem 7: 02/24/21 06:51 02/24/21 06:51 Labs: Abnormal Lab Results - Last 24 Hours (Table) 02/24/21 02/24/21 Range/Units 06:51 06:51 RBC 4.13 L (4.30-5.90) m/uL Sodium 136 L (137-145) mmol/L Chloride 97 L (98-107) mmol/L BUN 34 H (9-20) mg/dL Creatinine 1.96 H (0.66-1.25) mg/dL Assessment and Plan Assessment: Assessment #1 paroxysmal atrial fibrillation. The patient is in A. fib with controlled heart rate #2 cardiomyopathy likely nonischemic and related to tachycardia. #3 heart failure with a reduced ejection fraction exacerbation #4 morbid obesity #5 chronic kidney disease #6 coronary artery disease Plan #1 continue the current medical regimen #2 continue Lasix for additional 24 hours #3 the patient can be discharged
[2021-02-24] MEDS ORDERED: FUROSEMIDE 40 MG TAB PO SCH (09:00)
[2021-02-24 11:56] VITALS: BP 121/77; PULSE 78; TEMP 98
--- NOTE | 2021-02-24 12:19 | P.DS ---
<Luciano Olivares - Last Filed: 02/24/21 12:19> Providers Expected date of discharge: 02/24/21 Hospital Course: Discharge Diagnosis: Atrial fibrillation with RVR, currently controlled with a sustained ventricular rate 80s to 90s Acute systolic congestive heart failure with a moderate to severely impaired EF between 30 and 35% Chronic kidney disease stage III, stable Hyperlipidemia Hospital Course: Patient is a 71-year-old male with a past medical history of chronic persistent atrial fibrillation on anticoagulation with Eliquis, chronic kidney disease stage III, and obstructive sleep apnea BiPAP dependent nightly. Presented to the emergency department on 02/20/21 with a chief complaint of palpitations accompanied by shortness of breath and diaphoresis. Upon arrival to the emergency department he was found to be in atrial fibrillation with RVR sustaining and 140s. EKG completed showing A. fib RVR with a ventricular rate of 113 bpm. Chest x-ray was completed negative for acute cardiopulmonary process. Troponins trended 0.017, 0.016, and 0.016. TSH 1.650. Echocardiogram completed showing moderately to severely impaired EF between 30 and 35%. Patient is admitted under our services with consultation to cardiology. Cardiology treating A. fib RVR with increasing metoprolol to 100 mg twice daily and adding amiodarone 400 mg twice daily. Echocardiogram completed showing moderately to severely impaired EF between 30 and 35%. This is new finding, as LVEF significantly decreased from previous echocardiogram completed 05/07/19 which revealed a low-normal ejection fraction between 50-55%. Patient was diuresed Lasix and Aldactone. Patient's symptoms of palpitations, shortness of breath, and diaphoresis resolved. Patient reports feeling great. Patient is stable for discharge home at this time with the following changes to his medications: Lasix (furosemide) was increased to 40 mg by mouth twice daily, metoprolol (Lopressor) was increased to 100 mg daily, and he was started on 2 new medications amiodarone (Coradone) 400 mg twice daily and spironolactone (Aldactone) 25 mg tablets once a day in the morning. Patient to follow-up with PCP in 1-2 days and cardiology in 2 weeks. Patient to have outpatient labs drawn in 3 days to monitor renal function and electrolytes closely. Physical exam: Patient seen and fully evaluated at the bedside this morning. Pt denies having any chest pain, palpitations, or feeling short of breath at rest at this time. He is on room air with resting pulse ox of 98% an ambulatory pulse ox on room air 97%. He reports feeling significantly better and is denying having any headache, lightheadedness, dizziness, changes in vision or hearing, chest pain or palpitations, shortness of breath at rest, abdominal pain, nausea, vomiting, or any other complaints. Patient reports abdomen feels much less distended and swelling in his legs has improved. Patient's condition is stable for discharge at this time. Vital signs reviewed and stable. General: Nontoxic, no distress and appears stated age. Derm: Skin warm and dry, normal coloration for ethnicity. Head: Atraumatic, normocephalic and symmetric. Eyes: EOMs intact, no lid lag, and anicteric sclera Mouth: no lip lesions, mucus membranes moist Cardiovascular: Irregularly irregular rhythm with controlled rate, no murmur, positive posterior tibial pulses bilaterally, and cap refill < 2 seconds. Lungs: Respirations even, regular, and unlabored on room air. Lungs CTA bilaterally, no rhonchi, no rales, no wheezing, and no accessory muscle usage. Abdominal: Obese abdomen soft, nontender to palpation, no guarding, no appreciable organomegaly. Ventral hernia present upon patient sitting up Ext: ROM intact. No gross muscle atrophy, 1+ pitting bilateral lower extremity e chuy, no contractures Neuro: Speech clear, face symmetrical and CN II-XII grossly intact with no noted focal neuro deficits Psych: Alert and oriented to person, place, time, and situation. Appropriate and pleasant affect. A total of 45 minutes of time were spent preparing this complex discharge summary. Patient Condition at Discharge: Fair Plan - Discharge Summary New Discharge Prescriptions: New Amiodarone [Cordarone] 400 mg PO BID 30 Days #60 tab Spironolactone [Aldactone] 25 mg PO DAILY 30 Days #30 tab Furosemide [Lasix] 40 mg PO BID@0900,1600 30 Days #60 tab Metoprolol Tartrate [Lopressor] 100 mg PO BID 30 Days #120 tab Continue Apixaban [Eliquis] 5 mg PO BID ALPRAZolam [Xanax] 1 mg PO HS PRN PRN Reason: Anxiety Aspirin [Adult Low Dose Aspirin EC] 81 mg PO DAILY Latanoprost Ophth [Xalatan 0.005%] 1 drops BOTH EYES HS ml Cholecalciferol [Vitamin D3 (25 Mcg = 1000 Iu)] 5,000 unit PO DAILY allopurinoL [Zyloprim] 100 mg PO DAILY Acetaminophen-Codeine 300-30mg [Tylenol w/codeine #3] 1 tab PO Q6H PRN PRN Reason: Pain Pantoprazole Sodium [Protonix] 40 mg PO DAILY Atorvastatin [Lipitor] 80 mg PO DAILY Lisinopril [Prinivil] 5 mg PO HS Metoclopramide [Reglan] 5 mg PO ACHS Dicyclomine [Bentyl] 20 mg PO AC-TID Discontinued Furosemide [Lasix] 20 mg PO Q48H predniSONE [Deltasone] See Taper PO DIRECTED PRN PRN Reason: FLARE UP Metoprolol Tartrate [Lopressor] 100 mg PO DAILY@0800 Metoprolol Tartrate [Lopressor] 50 mg PO DAILY@1800 Discharge Medication List ALPRAZolam [Xanax] 1 mg PO HS PRN 04/15/15 [History] Apixaban [Eliquis] 5 mg PO BID 04/15/15 [History] Aspirin [Adult Low Dose Aspirin EC] 81 mg PO DAILY 04/09/16 [History] Latanoprost Ophth [Xalatan 0.005%] 1 drops BOTH EYES HS ml 04/13/16 [Rx] Cholecalciferol [Vitamin D3 (25 Mcg = 1000 Iu)] 5,000 unit PO DAILY 05/07/19 [History] allopurinoL [Zyloprim] 100 mg PO DAILY 05/07/19 [History] Acetaminophen-Codeine 300-30mg [Tylenol w/codeine #3] 1 tab PO Q6H PRN 01/20/21 [History] Lisinopril [Prinivil] 5 mg PO HS 01/20/21 [History] Atorvastatin [Lipitor] 80 mg PO DAILY 02/20/21 [History] Dicyclomine [Bentyl] 20 mg PO AC-TID 02/20/21 [History] Metoclopramide [Reglan] 5 mg PO ACHS 02/20/21 [History] Pantoprazole Sodium [Protonix] 40 mg PO DAILY 02/20/21 [History] Amiodarone [Cordarone] 400 mg PO BID 30 Days #60 tab 02/24/21 [Rx] Furosemide [Lasix] 40 mg PO BID@0900,1600 30 Days #60 tab 02/24/21 [Rx] Metoprolol Tartrate [Lopressor] 100 mg PO BID 30 Days #120 tab 02/24/21 [Rx] Spironolactone [Aldactone] 25 mg PO DAILY 30 Days #30 tab 02/24/21 [Rx] Follow up Appointment(s)/Referral(s): Joey Fields MD [STAFF PHYSICIAN] - 2 Weeks Giovani Doll MD [Primary Care Provider] - 1-2 days Ambulatory/Diagnostic Orders: Basic Metabolic Panel [LAB.AMB] Time Frame: 3 Days, Location: None Selected Magnesium [LAB.AMB] Time Frame: 3 Days, Location: None Selected Patient Instructions/Handouts: Heart Failure (DC), Heart Healthy Diet (DC) Activity/Diet/Wound Care/Special Instructions: Activity: As tolerated. Take breaks as needed. Diet: Heart healthy and carb consistent diet. Avoid salts, or foods with hidden salts such as canned or boxed foods and frozen dinners. Extra salt makes your heart work harder and traps the fluid in your body for longer. Special Instructions: Weigh yourself every morning after you urinate. If you gain 3 pounds overnight or more than 5 pounds in one week, call your primary physician and audioprosthologist for guidance on your medications or they may want to see you in their office. Keep a daily log of your weights and be sure to bring with you at follow up visits with your PCP and audioprosthologist. Take all of your medications as directed, especially your water pills. NEVER skip a dose. And remember to keep all of your doctor's appointments and follow- up as needed. You have had multiple changes to your medications. Lasix (furosemide) was increased to 40 mg by mouth twice daily, metoprolol (Lopressor) was increased to 100 mg daily, and you have been started on 2 new medications amiodarone (Coradone) in which you are prescribed to take 400 mg twice daily and spironolactone (Aldactone) 25 mg tablets once a day in the morning. You will need to have repeat labs drawn in 3 days as we have increased your diuretic (Lasix) and we will need to closely monitor your electrolytes and kidney function. Elevate your legs when you are not up moving around to help with circulation and prevent swelling. Compression stockings are also a great way to improve lower extremity circulation and prevent/improve lower extremity edema. Call your primary care provider and audioprosthologist if you notice any extra swelling in your legs, ankles, feet or abdomen, if you have a new dry cough, if your shortness of breath worsens with activity or at rest, or if you feel more fatigued. Thank you for allowing us to participate in your care, it was truly a pleasure having you for our patient!!! Discharge Disposition: HOME SELF-CARE <Amparo Boothe - Last Filed: 02/24/21 16:39> Providers Date of admission: 02/20/21 14:37 Attending physician: Rae Allen MD Consults: 02/20/21 14:38 Consult Physician Routine Consulting Provider: Joey Fields Consult Reason/Comments: Atrial fibrillation Do you want consulting provider notified?: Yes Primary care physician: Giovani Doll MD Hospital Course: Patient seen and examined independently. Patient was also seen by Luciano Olivares NP and case was discussed. I am in agreement with discharge diagnosis, hospital course, and physical exam as written above and amended below. Denies any chest pain, shortness of breath is improved, was able to lay flat after IV Lasix. Has a appointment of Dr. Merritt in approximately 4-6 weeks. I informed him to ensure that he keeps that appointment and that he will need a repeat kidney function test done approximately one week as his Lasix dose will need to be increased with his new known systolic congestive heart failure. General: non toxic, no distress, appears at stated age Derm: warm, dry Head: atraumatic, normocephalic, symmetric Eyes: EOMI, no lid lag, anicteric sclera Mouth: no lip lesion, mucus membranes moist Cardiovascular: S1S2 reg, no murmur, positive posterior tibial pulse bilateral, Lungs: CTA bilateral, no rhonchi, no rales , no accessory muscle use Abdominal: soft, nontender to palpation, no guarding, no appreciable organomegaly Ext: no gross muscle atrophy, 2+ edema, no contractures Neuro: CN II-XI grossly intact, no focal neuro deficits Psych: Alert, oriented, appropriate affect
== END 2021-02-24 13:20 | disposition home or self-care (01) | DRG 291 ==
LOC: EC 12:43 → 3SCARD 14:37
PROVIDERS: ADMIT Internal Medicine; ATTEND Internal Medicine
DX: I13.0 Hypertensive heart and chronic kidney disease with heart failure and stage 1 through stage 4 chronic kidney disease, or unspecified chronic kidney disease (principal); I50.23 Acute on chronic systolic (congestive) heart failure; I48.19 Other persistent atrial fibrillation; I27.20 Pulmonary hypertension, unspecified; I42.9 Cardiomyopathy, unspecified; N18.30 Chronic kidney disease, stage 3 unspecified; E66.01 Morbid (severe) obesity due to excess calories; G47.33 Obstructive sleep apnea (adult) (pediatric); M47.816 Spondylosis without myelopathy or radiculopathy, lumbar region; I08.1 Rheumatic disorders of both mitral and tricuspid valves; I25.10 Atherosclerotic heart disease of native coronary artery without angina pectoris; K43.9 Ventral hernia without obstruction or gangrene; E78.5 Hyperlipidemia, unspecified; Z68.38 Body mass index [BMI] 38.0-38.9, adult; H40.9 Unspecified glaucoma; I25.2 Old myocardial infarction; Z79.01 Long term (current) use of anticoagulants; Z79.82 Long term (current) use of aspirin; Z79.899 Other long term (current) drug therapy; Z87.442 Personal history of urinary calculi; Z87.39 Personal history of other diseases of the musculoskeletal system and connective tissue; Z90.49 Acquired absence of other specified parts of digestive tract; Z87.19 Personal history of other diseases of the digestive system; Z95.5 Presence of coronary angioplasty implant and graft; Z86.79 Personal history of other diseases of the circulatory system; Z90.89 Acquired absence of other organs; Z96.653 Presence of artificial knee joint, bilateral; Z98.890 Other specified postprocedural states; Z80.3 Family history of malignant neoplasm of breast; Z82.49 Family history of ischemic heart disease and other diseases of the circulatory system
CPT/HCPCS: 36415; 71046; 74150; 80048; 80053; 82550; 83735; 83880; 84443; 84484; 85025; 85027; 85379; 85610; 85730; 93005; 93306; 94760; 99285

== ENCOUNTER 2021-03-08 10:04 | Day surgery (SDC) | payer MEDICARE, BC ==
[2021-03-06 11:24] VITALS: BMI 37.3
[~2021-03-08 10:04] MED LIST changes: -DEXAMETHASONE SOD PHOSPHATE 10 MG/ML 1 ML VIAL IV ONE; -HEPARIN SODIUM,PORCINE 5,000 UNIT/ML 1 ML VIAL SQ ONE; -HYDROmorphone 1 MG/ML 1 ML SYRINGE IVP PRN; -INDOCYANINE GREEN 25 MG VIAL IV STA; -LIDOCAINE 1% 20 ML VIAL (10MG/ML) FOR IV START INTRADERMA PRN; -MIDAZOLAM 2 MG/2 ML VIAL IV PRN; -ONDANSETRON 4 MG/2 ML VIAL IVP ONE; -SCOPOLAMINE 1.5MG/72HR PATCH TRANSDERM ONE
[2021-03-08 10:50] VITALS: TEMP 97
[2021-03-08] MEDS ORDERED: MIDAZOLAM 2 MG/2 ML VIAL ONE (11:08)
[2021-03-08] MEDS ORDERED: GLYCOPYRROLATE 0.2 MG/ML 2 ML VIAL ONE (11:08)
[2021-03-08] MEDS ORDERED: KETAMINE 10 MG/ML 20 ML VIAL ONE (11:08)
[2021-03-08] MEDS ORDERED: LIDOCAINE 1% INJ 10MG/ML (20 ML MDV) ONE (11:08)
[2021-03-08] MEDS ORDERED: PROPOFOL 10 MG/ML 20 ML VIAL IV ONE (11:08)
--- NOTE | 2021-03-08 11:34 | P.PCN ---
Date of Procedure: 03/08/21 Procedure(s) Performed: Brief history: Patient is a pleasant 71-year-old white male scheduled for an elective upper endoscopy as well as colonoscopy as a part of evaluation of abdominal discomfort, abdominal distention and change in bowel habits for the last several months duration. Procedure performed: Esophagogastroduodenoscopy with biopsy Colonoscopy Preoperative diagnosis: Abdominal pain/abdominal distention and change in bowel habits of several months duration Anesthesia: MAC Procedure: After informed consent was obtained from the patient was brought into the endoscopy unit and IV sedation was administered by anesthesia under continuous monitoring. Initially upper endoscopy was done. The Olympus GF 160 video endoscope was inserted inserted into the mouth and esophagus intubated without any difficulty and was gradually advanced into the stomach and duodenum and carefully examined. The bulb and second part of the duodenum appeared normal. Biopsies were done from the duodenum to rule out celiac disease. The scope was then withdrawn into the stomach adequately insufflated with air and upon careful examination the antrum had minimal gastritis and biopsies were done from this area. The body, cardia and fundus appeared normal. The scope was then withdrawn into the esophagus. The GE junction was located at 38 cm to the incisors. There was long segment of Martinez's esophagus extending from 38-41 cm from the incisors and multiple biopsies were done from this area. It appeared regular with no erythema erosions or ulcerations. Rest of the esophagus appeared normal. Patient tolerated the procedure well. At this time the patient continued to remain sedation. Initial digital rectal examination was normal. Olympus CF 160 video colonoscope was then inserted into the rectum and gradually advanced to the cecum without any difficulty. Careful examination was performed as the scope was gradually being withdrawn. The prep was fair. In the ascending colon there was a 5 limited polyp that was removed by snare polypectomy.. The cecum, ascending colon, transverse colon, descending colon, sigmoid colon and rectum appeared normal. Moderate left-sided diverticulosis seen. Retroflexion was performed in the rectum and no lesions were noted. Patient tolerated the procedure well. Impression: 1. Upper endoscopy revealed Martinez's esophagus, antral gastritis and small hiatal hernia 2. Colonoscopy revealed 5 mm ascending colon polyp status post polypectomy and moderate sigmoid diverticulosis Recommendations: Findings of this examination were discussed with the patient as well as his family. He was advised to follow with the biopsy results. If the biopsy revealed adenoma he can have a repeat colonoscopy in 5 years. In regards to GERD and Martinez's esophagus he was started on omeprazole 20 mg daily and follow antireflux measures.
[2021-03-08 11:58] VITALS: BP 105/70; PULSE 68; RESP 20
== END 2021-03-08 12:15 | disposition home or self-care (01) ==
LOC: ORWHC2ENDO 10:04
PROVIDERS: ATTEND Internal Medicine Gastroenterology
DX: R19.4 Change in bowel habit (principal); K31.9 Disease of stomach and duodenum, unspecified; D12.2 Benign neoplasm of ascending colon; I25.10 Atherosclerotic heart disease of native coronary artery without angina pectoris; G47.33 Obstructive sleep apnea (adult) (pediatric); I13.10 Hypertensive heart and chronic kidney disease without heart failure, with stage 1 through stage 4 chronic kidney disease, or unspecified chronic kidney disease; N18.9 Chronic kidney disease, unspecified; E78.5 Hyperlipidemia, unspecified; I48.91 Unspecified atrial fibrillation; Z79.899 Other long term (current) drug therapy
CPT/HCPCS: 88305; 45385; 43239; J2250; J2001; J2704

== ENCOUNTER → 2021-03-21 | Outpatient (CLI) | payer MEDICARE, BC ==
[2021-03-21 10:23] LABS: HCT 46.4 % (39.0-53.0); HGB 15.3 gm/dL (13.0-17.5); MCH 31.5 pg (25.0-35.0); MCHC 32.9 g/dL (31.0-37.0); MCV 95.6 fL (80.0-100.0); Mean Platelet Volume 8.1; Platelet Count 149 k/uL (150-450); RBC 4.85 m/uL (4.30-5.90); WBC 10.6 k/uL (3.8-10.6)
[2021-03-21 10:38] LABS: Potassium 3.5 mmol/L (3.5-5.1)
== END | disposition home or self-care (01) ==
LOC: LABPAT 09:33
PROVIDERS: ATTEND Internal Medicine Clinical Cardiac Electrophysiology
DX: Z01.812 Encounter for preprocedural laboratory examination (principal); I48.19 Other persistent atrial fibrillation
CPT/HCPCS: 80051; 82565; 84520; 85027

== ENCOUNTER 2021-04-03 10:06 | Day surgery (SDC) | payer MEDICARE, BC ==
[2021-03-30 12:05] VITALS: BMI 35.5
[~2021-04-03 10:06] MED LIST changes: -LACTATED RINGERS 1,000 ML IV SCH; +SODIUM CHLORIDE 0.9% 1,000 ML IV SCH
[2021-04-03] MEDS: SODIUM CHLORIDE 0.9% 1,000 ML IV SCH ×2 (10:40→14:45)
[2021-04-03] MEDS ORDERED: PROPOFOL 10 MG/ML 20 ML VIAL IV ONE (11:40)
--- NOTE | 2021-04-03 12:03 | P.EPPROC ---
- EP Procedure Note Electrophysiology Procedure Note: Diagnosis Persistent atrial fibrillation with RVR Cardio myopathy with severe LV dysfunction ejection fraction 30-35% Congestive heart failure Currently on amiodarone 100 mg twice daily Procedure Electrical cardioversion for atrial fibrillation Details of the procedure A 200 J biphasic shock in the AP configuration successfully converted to sinus rhythm/sinus bradycardia He was having PVCs before the procedure and he was continuing to have PVCs after the procedure and the same frequency Plan Reduce amiodarone to 200 mg by mouth daily Hold metoprolol completely for 24 hours and start metoprolol again on Saturday morning 25 mg daily long-acting Discontinue metoprolol tartrate Follow-up Holter monitor in 2 weeks Follow-up thereafter Telemetry monitoring until his heart rates improve If his heart rate does not improve beyond 50 beats a minute we will keep him overnight for observation
[2021-04-03] MEDS ORDERED: ALPRAZolam 1 MG TAB PO PRN (13:02)
[2021-04-03] MEDS ORDERED: PANTOPRAZOLE 40 MG TABLET PO STA (13:42)
[2021-04-03] MEDS ORDERED: predniSONE 20 MG TAB PO STA (13:42)
[2021-04-03] MEDS ORDERED: DICYCLOMINE 20 MG TAB PO STA (13:42)
[2021-04-03] MEDS: LACTATED RINGERS 1,000 ML IV SCH (14:45)
[2021-04-03 14:47] LABS: Potassium 3.9 mmol/L (3.5-5.1)
[2021-04-03] MEDS: DICYCLOMINE 20 MG TAB PO SCH (17:02)
[2021-04-03] MEDS: METOCLOPRAMIDE 5 MG TAB PO SCH ×2 (17:02→19:55)
[2021-04-03] MEDS: APIXABAN 5 MG TAB PO SCH (19:55)
[2021-04-03] MEDS ORDERED: LATANOPROST 0.005% OPHTH DROPS 2.5 ML BTL BOTH EYES SCH (21:00)
[2021-04-03] MEDS: ACETAMINOPHEN TAB 325 MG TAB PO PRN (23:52)
[2021-04-04] MEDS: SODIUM CHLORIDE 0.9% 1,000 ML IV SCH ×2 (00:35)
[2021-04-04] MEDS: LACTATED RINGERS 1,000 ML IV SCH (00:36)
[2021-04-04 07:28] VITALS: BP 102/58; PULSE 34; RESP 14; TEMP 98
[2021-04-04] MEDS ORDERED: PANTOPRAZOLE 40 MG TABLET PO SCH (07:30)
[2021-04-04] MEDS: APIXABAN 5 MG TAB PO SCH (08:10)
[2021-04-04] MEDS: ACETAMINOPHEN TAB 325 MG TAB PO PRN (08:11)
[2021-04-04] MEDS: METOCLOPRAMIDE 5 MG TAB PO SCH ×2 (08:11→12:38)
[2021-04-04] MEDS: DICYCLOMINE 20 MG TAB PO SCH ×2 (08:11→12:38)
[2021-04-04] MEDS ORDERED: CHOLECALCIFEROL 25 MCG (1000 IU) TABLET PO SCH (09:00)
[2021-04-04] MEDS ORDERED: allopurinoL 100 MG TAB PO SCH (09:00)
[2021-04-04] MEDS ORDERED: predniSONE 20 MG TAB PO SCH (09:00)
[2021-04-04] MEDS ORDERED: AMIODARONE 200 MG TAB PO SCH (09:00)
[2021-04-04] MEDS ORDERED: FUROSEMIDE 20 MG TAB PO SCH (09:00)
[2021-04-04] MEDS ORDERED: SPIRONOLACTONE 25 MG TAB PO SCH (09:00)
[2021-04-04] MEDS ORDERED: ASPIRIN 81 MG PO SCH (09:00)
[2021-04-04] MEDS ORDERED: ATORVASTATIN 80 MG TAB PO SCH (09:00)
--- NOTE | 2021-04-04 09:37 | P.DS ---
Providers Attending physician: Joey Fields Primary care physician: Giovani Doll MD Hospital Course: INTERVAL HISTORY: The patient is [id number] male with a past medical history of persistent atrial fibrillation with RVR, coronary artery disease s/p PCI left circumflex in 2019, congestive heart failure, nonsustained atrial tachycardia, chronic kidney disease, non-ischemic cardiomyopathy EF 30-35%, hypertension, dyslipidemia, admitted to the hospital by Dr. Fields. Patient underwent electrical cardioversion with Dr. Fields on 04/03/2021. Patient was having PVCs before the procedure and continued to have PVCs after the procedure at the same frequency, he was also bradycardic. Dr. Fields recommended monitoring patient overnight. Telemetry reviewed patient's heart rate in the 30s, occasional PVCs. This morning his heart rate is improved in the low 40s-45. When walking pat ient's HR increases to the 50s-60. PHYSICAL EXAMINATION: Blood pressure 06/25/1959, heart rate 54, afebrile, maintaining saturations on room air. HEART: S1, S2 normal. LUNGS: Clear to auscultation. NECK: Supple. ABDOMEN: Soft. EXTREMITIES: 2+ peripheral pulses. LAB DATA: Sodium 136, potassium 3.9, BUN 56, serum creatinine 1.9, COVID-19 PCR negative FINAL IMPRESSION: 1. Status post Electrical cardioversion for atrial fibrillation on 04/03/21 2. Persistent atrial fibrillation with RVR 3. History of coronary artery disease s/p PCI left circumflex in 2019 4. Chronic systolic heart failure 5. History of nonsustained atrial tachycardia 6. History of chronic kidney disease 7. History of non-ischemic cardiomyopathy EF 30-35% 8. History of hypertension, 9. History of dyslipidemia PLAN: Patient may be able to be discharged home today around lunch time. We will make him a follow-up appointment with Dr. Fields in 3 weeks. -Reduce amiodarone to 100 mg by mouth daily and hold until March -Hold metoprolol completely start metoprolol succinate again on morning 25 mg daily -Discontinue metoprolol tartrate -Continue Eliquis. Plan - Discharge Summary Discharge Rx Participant: No New Discharge Prescriptions: New Amiodarone [Cordarone] 100 mg PO DAILY 90 Days #90 tab Metoprolol Succinate (ER) [Toprol XL] 25 mg PO DAILY #90 tab Continue Apixaban [Eliquis] 5 mg PO BID Aspirin [Adult Low Dose Aspirin EC] 81 mg PO DAILY Atorvastatin [Lipitor] 80 mg PO DAILY Spironolactone [Aldactone] 25 mg PO DAILY 30 Days #30 tab Furosemide [Lasix] 20 mg PO QAM Discontinued Amiodarone [Cordarone] 400 mg PO BID 30 Days #60 tab Metoprolol Tartrate [Lopressor] 100 mg PO QAM Metoprolol Tartrate [Lopressor] 50 mg PO W/SUPPER No Action ALPRAZolam [Xanax] 1 mg PO HS PRN PRN Reason: Anxiety Latanoprost Ophth [Xalatan 0.005%] 1 drops BOTH EYES HS ml Cholecalciferol [Vitamin D3 (25 Mcg = 1000 Iu)] 5,000 unit PO DAILY allopurinoL [Zyloprim] 100 mg PO DAILY Acetaminophen-Codeine 300-30mg [Tylenol w/codeine #3] 1 tab PO Q6H PRN PRN Reason: Pain Pantoprazole Sodium [Protonix] 40 mg PO DAILY Metoclopramide [Reglan] 5 mg PO ACHS Dicyclomine [Bentyl] 20 mg PO AC-TID predniSONE [Deltasone] 0 mg PO DIRECTED Discharge Medication List ALPRAZolam [Xanax] 1 mg PO HS PRN 04/15/15 [History] Apixaban [Eliquis] 5 mg PO BID 04/15/15 [History] Aspirin [Adult Low Dose Aspirin EC] 81 mg PO DAILY 04/09/16 [History] Latanoprost Ophth [Xalatan 0.005%] 1 drops BOTH EYES HS ml 04/13/16 [Rx] Cholecalciferol [Vitamin D3 (25 Mcg = 1000 Iu)] 5,000 unit PO DAILY 05/07/19 [History] allopurinoL [Zyloprim] 100 mg PO DAILY 05/07/19 [History] Acetaminophen-Codeine 300-30mg [Tylenol w/codeine #3] 1 tab PO Q6H PRN 01/20/21 [History] Atorvastatin [Lipitor] 80 mg PO DAILY 02/20/21 [History] Dicyclomine [Bentyl] 20 mg PO AC-TID 02/20/21 [History] Metoclopramide [Reglan] 5 mg PO ACHS 02/20/21 [History] Pantoprazole Sodium [Protonix] 40 mg PO DAILY 02/20/21 [History] Spironolactone [Aldactone] 25 mg PO DAILY 30 Days #30 tab 02/24/21 [Rx] Furosemide [Lasix] 20 mg PO QAM 03/30/21 [History] predniSONE [Deltasone] 0 mg PO DIRECTED 03/30/21 [History] Metoprolol Succinate (ER) [Toprol XL] 25 mg PO DAILY #90 tab 04/03/21 [Rx] Amiodarone [Cordarone] 100 mg PO DAILY 90 Days #90 tab 04/04/21 [Rx] Follow up Appointment(s)/Referral(s): Joey Fields MD [STAFF PHYSICIAN] - 3 Weeks (Follow-up Holter monitor in 2 weeks, [facility], I called the office Follow Dr. Fields/Leila Romero in 3-4 weeks, I called the office) Patient Instructions/Handouts: Cardioversion (DC) Activity/Diet/Wound Care/Special Instructions: No driving for 24 hours Do not take amiodarone or metoprolol until March Reduce amiodarone to 100 mg by mouth daily Reduce and change metoprolol -Stop metoprolol tartrate completely -Start metoprolol succinate, new medication, 25 mg every morning only, starting Continue ELIQUIS No other changes Discharge Disposition: HOME SELF-CARE
[2021-04-04 14:28] LABS: Chol/HDL Ratio 2.04 Ratio; HDL Cholesterol 61.3 mg/dL (40.00-60.00); LDL Cholesterol,Calculated 34.3 mg/dL (0.0-131.0); VLDL Calculation 29.4 mg/dL (5.00-40.00)
[2021-04-06] MEDS ORDERED: AMIODARONE 100 MG TAB PO SCH (09:00)
== END 2021-04-04 13:12 | disposition home or self-care (01) ==
LOC: CATHEP 10:06 → 6NMEDSUR 11:55 → CATHEP 04-04 13:12
PROVIDERS: ATTEND Internal Medicine Clinical Cardiac Electrophysiology
DX: I48.19 Other persistent atrial fibrillation (principal); I13.0 Hypertensive heart and chronic kidney disease with heart failure and stage 1 through stage 4 chronic kidney disease, or unspecified chronic kidney disease; I50.23 Acute on chronic systolic (congestive) heart failure; N18.30 Chronic kidney disease, stage 3 unspecified; E78.5 Hyperlipidemia, unspecified; Z20.822 Contact with and (suspected) exposure to COVID-19; K21.9 Gastro-esophageal reflux disease without esophagitis; Z87.442 Personal history of urinary calculi; Z79.01 Long term (current) use of anticoagulants; Z79.52 Long term (current) use of systemic steroids; Z79.899 Other long term (current) drug therapy; Z79.82 Long term (current) use of aspirin
CPT/HCPCS: 92960; 80061; 80048; 87635; J2704; J7512 ×2

== ENCOUNTER → 2021-04-18 | Outpatient (CLI) | payer MEDICARE, BC ==
[2021-04-18 14:53] LABS: Appearance,Urine Clear (Clear); Bilirubin,Urine Negative (Negative); Blood,Urine Negative (Negative); Color,Urine Light Yellow; Glucose,Urine (UA) Negative (Negative); Ketones,Urine Negative (Negative); Leukocyte Esterase,Urine Negative (Negative); Nitrite,Urine Negative (Negative); Protein,Urine Negative (Negative); Specific Gravity,Urine 1.008 (1.001-1.035); Urobilinogen,Urine <2.0 mg/dL (<2.0)
[2021-04-18 15:17] LABS: Protein/Creatinine Ratio,Urine 0.5
[2021-04-18 19:20] LABS: HCT 49.1 % (39.6-50.0); HGB 15.6 g/dL (13.0-17.0); MCH 31.3 pg (27.0-32.0); MCHC 31.8 g/dL (32.0-37.0); MCV 98.4 fL (80.0-97.0); Mean Platelet Volume 10.5 fL (9.5-12.2); Platelet Count 117 X 10*3/uL (140-440); RBC 4.99 X 10*6/uL (4.40-5.60); RDW 15.6 % (11.5-14.5); WBC 8.24 X 10*3/uL (4.50-10.00)
[2021-04-18 19:21] LABS: Basophils # (M) 0 X 10*3/uL (0.00-0.10); Crenated RBC 2+; Eosinophils # (M) 0 X 10*3/uL (0.04-0.35); Lymphocytes # (M) 0.58 X 10*3/uL (0.90-5.00); Metamyelocytes % 1 % (0-0); Monocytes # (M) 0.16 X 10*3/uL (0.20-1.00); Myelocytes % 2 % (0-0); Neutrophils # (M) 7.25 X 10*3/uL (2.00-8.90); Neutrophils % (M) 88 %
[2021-04-19 00:37] LABS: % Iron Saturation 32.21 (15.00-50.00); African American GFR (CKD) 30.7 (60.0-200.0); Albumin 4.6 g/dL (3.8-4.9); Anion Gap 18.1 mmol/L (4.00-12.00); BUN/Creat Ratio 24.98 Ratio (12.00-20.00); Blood Urea Nitrogen 58.7 mg/dL (9.0-27.0); Calcium 10.1 mg/dL (8.7-10.3); Carbon Dioxide 19.8 mmol/L (21.6-31.8); Non-African American GFR(CKD) 26.5 (60.0-200.0); Phosphorus 4.6 mg/dL (2.4-5.1); Potassium 4.3 mmol/L (3.5-5.5)
== END | disposition home or self-care (01) ==
LOC: LABWHC1 13:59
PROVIDERS: ATTEND Internal Medicine Nephrology
DX: N18.32 Chronic kidney disease, stage 3b (principal); E55.9 Vitamin D deficiency, unspecified; N25.81 Secondary hyperparathyroidism of renal origin; M10.9 Gout, unspecified; N39.0 Urinary tract infection, site not specified; D64.9 Anemia, unspecified; R80.9 Proteinuria, unspecified
CPT/HCPCS: 36415; 80048; 81003; 82040; 82306; 82570; 82728; 83540; 83550; 83735; 83970; 84100; 84156; 84550; 85025

== ENCOUNTER → 2021-04-25 | Outpatient (CLI) | payer MEDICARE, BC ==
[2021-04-25 15:29] LABS: Chol/HDL Ratio 2.05 Ratio; HDL Cholesterol 72.2 mg/dL (40.00-60.00); LDL Cholesterol,Calculated 50.6 mg/dL (0.0-131.0); VLDL Calculation 25.2 mg/dL (5.00-40.00)
== END | disposition home or self-care (01) ==
LOC: LABWHC1 09:47
PROVIDERS: ATTEND Internal Medicine Clinical Cardiac Electrophysiology
DX: E78.5 Hyperlipidemia, unspecified (principal)
CPT/HCPCS: 36415; 80061

== ENCOUNTER → 2021-07-10 | Outpatient (CLI) | payer MEDICARE, BC ==
[2021-07-10 11:54] LABS: HCT 43.3 % (39.0-53.0); HGB 14.1 gm/dL (13.0-17.5); MCHC 32.6 g/dL (31.0-37.0); Macrocytosis Slight; Mean Platelet Volume 8.5; Platelet Count 178 k/uL (150-450); RBC 4.42 m/uL (4.30-5.90); RDW 15.7 % (11.5-15.5); WBC 15.3 k/uL (3.8-10.6)
[2021-07-10 11:59] LABS: Potassium 3.8 mmol/L (3.5-5.1)
== END | disposition home or self-care (01) ==
LOC: LABPAT 10:56
PROVIDERS: ATTEND Internal Medicine Clinical Cardiac Electrophysiology
DX: Z01.812 Encounter for preprocedural laboratory examination (principal); Z20.822 Contact with and (suspected) exposure to COVID-19; I42.0 Dilated cardiomyopathy
CPT/HCPCS: 80051; 82565; 84520; 85027; 36415; U0003; C9803

== ENCOUNTER 2021-07-13 09:59 | Day surgery (SDC) | payer MEDICARE, BC ==
[2021-07-06 16:19] VITALS: BMI 35.9
[~2021-07-13 09:59] MED LIST changes: +LACTATED RINGERS 1,000 ML IV SCH; +LIDOCAINE 1% (10MG/ML) FOR IV START INTRADERMA PRN; +fentaNYL (PF) 50 MCG/ML 2 ML AMP IV PRN
[2021-07-13 11:50] VITALS: TEMP 98.2
[2021-07-13] MEDS ORDERED: LIDOCAINE 1% INJ 10MG/ML (20 ML MDV) ONE (12:00)
[2021-07-13] MEDS ORDERED: SODIUM CHLORIDE 0.9% 500 ML 500 ML IV ONE (12:01)
[2021-07-13] MEDS ORDERED: ceFAZolin 1,000 MG in SODIUM CHLORIDE 0.9% IRRIG BTL 250 ML IRRIGATION ONE (12:45)
[2021-07-13] MEDS: IOPAMIDOL-370 50ML BTL INJ ONE ×2 (12:45→14:30)
[2021-07-13] MEDS ORDERED: LIDOCAINE 1% INJ 10MG/ML (20 ML MDV) SQ ONE ×2 (13:18→13:29)
[2021-07-13] MEDS ORDERED: ACETAMINOPHEN TAB 325 MG TAB PO PRN (15:18)
--- NOTE | 2021-07-13 15:25 | P.EPPROC ---
- EP Procedure Note Electrophysiology Procedure Note: Diagnosis Persistent Atrial fibrillation with RVR, awaiting AV node ablation, standard pacemaker will result in RV pacing >40% following AV node ablation Dilated right and left atria Procedure LV/ biventricular pacemaker implantation Details Patient was brought to the EP lab in a fasting state. Written informed consent was obtained prior to the procedure. Conscious sedation provided by anesthesia team IV antibiotics administered. Local anesthesia administered. A 4 cm incision made in the pectoral area. Subfascial pocket made. Venous access obtained Venous sheaths placed. Leads placed in the right heart RV lead position in the RV apex. [employer] screw-in, in the RV septum, pacing threshold 0.5 V at 0.5 ms, R waves greater than 12 mV and pacing impedance 1650 ohms LV lead positioned in the LV vein. [employer] positioned in the lateral vein pacing impedance 760 ohms. M3-M2 threshold is 2.5 V at 0.5 ms Diaphragmatic stimulation in the distal poles LV 1-2 Biventricular pacemaker device connected to the leads and placed in the subfascial pocket Patient tolerance the procedure well without acute complications
--- NOTE | 2021-07-13 15:27 | P.PCN ---
Preoperative Diagnosis: Left upper extremity venogram 50 mL IV dye injection the left arm Patent left subclavian and left axillary venous system Plan Proceed with biventricular pacemaker implantation prior to AV node ablation for management of persistent A. fib with RVR
--- NOTE | 2021-07-13 16:02 | XR ---
EXAMINATION TYPE: XR chest 1V portable DATE OF EXAM: 07/13/2021 COMPARISON: 02/20/2021 INDICATION: Lead placement check TECHNIQUE: Single frontal view of the chest is obtained. FINDINGS: The heart size is normal. The pulmonary vasculature is normal. The lungs are clear. Pacemaker is placed on the left. No pneumothorax is identified. The frontal projection the placement appears unremarkable as visualized. There is limitation due to body habitus. IMPRESSION: 1. No pneumothorax post left-sided pacemaker placement
[2021-07-13] MEDS ORDERED: ACETAMINOPHEN IV (For NPO) 1,000 MG in EMPTY BAG 1 BAG IVPB ONE (17:00)
[2021-07-13 17:56] VITALS: RESP 16
[2021-07-13 18:00] VITALS: BP 128/77; PULSE 69
[2021-07-13] MEDS ORDERED: APIXABAN 5 MG TAB PO SCH (21:00)
== END 2021-07-13 17:42 | disposition home or self-care (01) ==
LOC: CATHEP 09:59
PROVIDERS: ATTEND Internal Medicine Clinical Cardiac Electrophysiology
DX: I48.19 Other persistent atrial fibrillation (principal); I49.5 Sick sinus syndrome; I42.0 Dilated cardiomyopathy; I25.10 Atherosclerotic heart disease of native coronary artery without angina pectoris; I12.9 Hypertensive chronic kidney disease with stage 1 through stage 4 chronic kidney disease, or unspecified chronic kidney disease; N18.4 Chronic kidney disease, stage 4 (severe); E78.5 Hyperlipidemia, unspecified; Z82.49 Family history of ischemic heart disease and other diseases of the circulatory system; Z79.01 Long term (current) use of anticoagulants; Z79.82 Long term (current) use of aspirin; Z79.899 Other long term (current) drug therapy
CPT/HCPCS: 33225; 33207; 71045; C1769 ×4; C1730; C1887; C1892; C1898; C1900; C2621; J0690 ×2; J2001; Q9967

== ENCOUNTER 2021-07-17 10:37 | Day surgery (SDC) | payer MEDICARE, BC ==
[2021-07-17 11:06] VITALS: BP 133/70; PULSE 87; RESP 18; TEMP 97.2
[2021-07-17] MEDS ORDERED: SODIUM CHLORIDE 0.9% 500 ML 500 ML IV ONE (11:06)
--- NOTE | 2021-07-17 11:32 | XR ---
EXAMINATION TYPE: XR chest 1V portable DATE OF EXAM: 07/17/2021 COMPARISON: Chest x-ray 4 days ago HISTORY: Pacemaker placement. TECHNIQUE: Single AP portable frontal upright view of the chest is obtained. FINDINGS: There is bibasilar opacity redemonstrated. Persistent cardiomegaly with dual lead pacemake r. Lead tips project over the right ventricle and coronary sinus. The osseous structures are intact. IMPRESSION: As above. No significant change from recent prior.
== END 2021-07-17 13:35 | disposition home or self-care (01) ==
LOC: CATHEP 10:37
PROVIDERS: ATTEND Internal Medicine Clinical Cardiac Electrophysiology
DX: Z45.018 Encounter for adjustment and management of other part of cardiac pacemaker (principal)
CPT/HCPCS: 71045

== ENCOUNTER 2021-08-11 19:15 | Inpatient (IN) | payer MEDICARE, BC ==
[2021-08-11] MEDS ORDERED: PANTOPRAZOLE 40 MG/10 ML VIAL IVP STA ×2 (19:41→21:06)
[2021-08-11] MEDS ORDERED: SODIUM CHLORIDE 0.9% 1,000 ML IV STA (19:41)
[2021-08-11] MEDS ORDERED: SODIUM CHLORIDE 0.9% 500 ML 500 ML IV STA (19:50)
[2021-08-11 20:40] LABS: Anisocytosis Slight; HCT 36.7 % (39.0-53.0); HGB 11.8 gm/dL (13.0-17.5); Hypochromasia Slight; MCHC 32.2 g/dL (31.0-37.0); MCV 102.3 fL (80.0-100.0); Macrocytosis Moderate; Mean Platelet Volume 7.9; Platelet Count 164 k/uL (150-450); RBC 3.59 m/uL (4.30-5.90); RDW 16.5 % (11.5-15.5); WBC 12.9 k/uL (3.8-10.6)
--- NOTE | 2021-08-11 20:47 | XR ---
EXAMINATION TYPE: XR chest 1V portable DATE OF EXAM: 08/11/2021 COMPARISON: 07/17/2021 HISTORY: Pain TECHNIQUE: Single view FINDINGS: There is some linear density right lung base. There is left axillary pacemaker. There are c hest leads. There is slight blunting right costophrenic angle. IMPRESSION: Mild pleural reaction and atelectasis right lung base without change. No heart failure.
[2021-08-11 20:50] LABS: Albumin 3.4 g/dL (3.5-5.0); Total Bilirubin 1.2 mg/dL (0.2-1.3); Total Protein 5.7 g/dL (6.3-8.2)
[2021-08-11 20:55] LABS: INR 1.1 (<1.2); Prothrombin Time 11.6 sec (9.0-12.0)
[2021-08-11 20:56] LABS: Partial Thromboplastin Time 22.9 sec (22.0-30.0)
[2021-08-11] MEDS ORDERED: TRANEXAMIC ACID 1,000 MG in SODIUM CHLORIDE 0.9% 100 ML IVPB ONE (21:15)
[2021-08-11] MEDS ORDERED: Kcentra PER PHARMACY 1 EACH MISC MISCELLANE PRN (21:16)
[2021-08-11 21:17] LABS: Nucleated Red Blood Cells 0 /100 WBC (0-0)
[2021-08-11 21:19] LABS: Band Neutrophils % 3 %; Lymphocytes # (M) 0.26 k/uL (1.0-4.8); Metamyelocytes # (M) 0.26 k/uL (0); Metamyelocytes % 2 %; Monocytes # (M) 0.26 k/uL (0-1.0); Myelocytes # (M) 0.52 k/uL (0); Myelocytes % 4 %; Neutrophils % (M) 88 %; Total Cells Counted 200
[2021-08-11 21:20] LABS: Ovalocytes Present; Poikilocytosis (M) Present
[2021-08-11] MEDS ORDERED: HUMAN PROTHROMBIN COMPLX IV STA (21:21)
[2021-08-11] MEDS ORDERED: NALOXONE 0.4 MG/ML 1 ML VIAL IV PRN (22:05)
[2021-08-11 22:08] LABS: INR 1.2 (<1.2); Partial Thromboplastin Time 22.3 sec (22.0-30.0); Prothrombin Time 12.5 sec (9.0-12.0)
[2021-08-11 22:09] LABS: Basophils # (A) 0.1 k/uL (0-0.2); Basophils % (A) 1 %; Eosinophils % (A) 0 %; HCT 28.8 % (39.0-53.0); Hypochromasia Slight; Lymphocytes # (A) 1.2 k/uL (1.0-4.8); Lymphocytes % (A) 11 %; MCH 33.1 pg (25.0-35.0); MCHC 32.5 g/dL (31.0-37.0); Macrocytosis Slight; Mean Platelet Volume 8.1; Monocytes # (A) 0.6 k/uL (0-1.0); Monocytes % (A) 6 %; Neutrophils # (A) 8.9 k/uL (1.3-7.7); Neutrophils % (A) 82 %; Platelet Count 106 k/uL (150-450); RBC 2.83 m/uL (4.30-5.90); WBC 10.8 k/uL (3.8-10.6)
[2021-08-11] MEDS ORDERED: HUMAN PROTHROMBIN COMPLX 500 UNIT/16 ML VIAL IV ONE (22:15)
[2021-08-11 22:21] LABS: HGB 9.4 gm/dL (13.0-17.5)
--- NOTE | 2021-08-11 23:34 | ED ---
General Adult HPI - General Chief complaint: GI Bleed Stated complaint: GI Bleed Time Seen by Provider: 08/11/21 19:40 Source: patient, EMS, RN notes reviewed, old records reviewed Mode of arrival: EMS - History of Present Illness Initial comments: Patient is a 71-year-old male with past medical history remarkable for recent pacemaker placement, atrial fibrillation on, hypertension, heart failure, CK D who presents emergency Department complaining of bloody bowel movements for the last few weeks. This started 3 weeks ago, and started initially as a small amount of blood in his stool. He states that it is progressively gotten worse. With last 2 days he has had multiple large or bloody bowel movements. Endorses some lightheadedness as well associated with that. Became concerned regarding the bleeding presents emergency department for further evaluation. Denies any abdominal pain, chest pain, shortness of breath. Does endorse bleeding from his right lower extremity on a venous stasis ulcer. Denies any nausea, vomiting, hematemesis. Describes the blood is dark sometimes, and red sometimes. Positive for both hematochezia and melena. His no other acute complaints at this time. Denies fevers, chills, sick contacts. Presents for worsening GI bleed symptoms. He did follow up with his PCP, who did not see him off his blood thinner medications. - Related Data Home Medications Medication Instructions Recorded Confirmed ALPRAZolam [Xanax] 1 mg PO HS 04/15/15 08/11/21 Apixaban [Eliquis] 5 mg PO BID 04/15/15 08/11/21 Aspirin [Adult Low Dose Aspirin EC] 81 mg PO DAILY 04/09/16 08/11/21 allopurinoL [Zyloprim] 100 mg PO DAILY 05/07/19 08/11/21 Acetaminophen-Codeine 300-30mg 1 tab PO Q6H PRN 01/20/21 08/11/21 [Tylenol w/codeine #3] Atorvastatin [Lipitor] 80 mg PO DAILY 02/20/21 08/11/21 Pantoprazole Sodium [Protonix] 40 mg PO DAILY 02/20/21 08/11/21 Furosemide [Lasix] 60 mg PO DAILY 03/30/21 08/11/21 Amiodarone HCl [Pacerone] 100 mg PO DAILY 08/11/21 08/11/21 Ferrous Sulfate [Feosol] 325 mg PO DAILY 08/11/21 08/11/21 Menthol-Zinc Oxide Oint 1 applic TOPICAL BID PRN 08/11/21 08/11/21 [Calmoseptine Oint] Metoclopramide [Reglan] 5 mg PO W/BRKFST 08/11/21 08/11/21 Metoprolol Succinate [Toprol XL] 50 mg PO HS 08/11/21 08/11/21 SILVER sulfADIAZINE CREAM 1 applic TOPICAL DAILY PRN 08/11/21 08/11/21 [Silvadene Cream] Previous Rx's Medication Instructions Recorded Latanoprost Ophth [Xalatan 0.005%] 1 drops BOTH EYES HS ml 04/13/16 Spironolactone [Aldactone] 25 mg PO DAILY 30 Days #30 tab 02/24/21 Metoprolol Succinate (ER) [Toprol 25 mg PO DAILY #90 tab 04/03/21 XL] Allergies Allergy/AdvReac Type Severity Reaction Status Date / Time No Known Allergies Allergy Verified 08/11/21 22:01 Review of Systems ROS Statement: Those systems with pertinent positive or pertinent negative responses have been documented in the HPI. Review of Systems: CONST: Endorses fatigue EYES: Denies blurry vision ENT: Denies nasal congestion C/V: Denies Chest pain RESP: Denies shortness of breath GI: Endorses GI bleed : Denies dysuria SKIN: Denies rash. MSK: Denies joint pain. NEURO: Denies headache ROS Other: All systems not noted in ROS Statement are negative. 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 SEE DR. PAYNE'S H & P Last Myocardial Infarction Date:: 2010 History of Any Multi-Drug Resistant Organisms: None Reported Past Surgical History: Cholecystectomy, Heart Catheterization With Stent, Joint Replacement, Orthopedic Surgery, Tonsillectomy Additional Past Surgical History / Comment(s): BILAT TKA AND DANIELLE, BILAT KNEE SCOPES, COLONOSCOPIES, CARDIOVERSION 04/03/21, pacemaker placed 07/15/21 Past Anesthesia/Blood Transfusion Reactions: No Reported Reaction Date of Last Stent Placement:: 2010 Past Psychological History: No Psychological Hx Reported Smoking Status: Never smoker Past Alcohol Use History: Occasional Past Drug Use History: None Reported - Past Family History Mother Family Medical History: Cancer Additional Family Medical History / Comment(s): Mother of breast cancer at the age of 79yrs. Father Family Medical History: Coronary Artery Disease (CAD) Additional Family Medical History / Comment(s): Father had heart problems. He had coronary valve replacement. He at the age of 83 yrs. General Exam - General Exam Comments Initial Comments: General: Appears in no acute distress. HEAD: Normal with no signs of head trauma. EYES: PERRLA, EOMI, conjunctiva normal, no discharge. ENT: Hearing grossly intact, normal oropharynx. RESPIRATORY: Clear breath sounds bilaterally. No wheezes, rales, or rhonchi. C/V: Regular rate and rhythm. S1 and S2 auscultated. Peripheral edema is 2+ and bilateral lower extremities. Peripheral pulses are 2+ and equal throughout. ABD: Abd is soft, nontender, nondistended. No bleeding in his boxes at this time. EXT: Normal range of motion, no obvious deformity SKIN: No rashes or lesions observed on exposed skin. NEURO: Oriented 4. No focal deficits. Course Vital Signs 08/11/21 19:19 Temperature 97.4 F L Pulse Rate 51 L Respiratory 18 Rate Blood Pressure 118/84 O2 Sat by Pulse 100 Oximetry Procedures - Central Line Placement Right Femoral Consent Obtained: verbal consent Patient Placed on Monitor/Pulse Ox: Yes MD Prep: mask, gown, gloves Central Line Prep: Chlorhexidine scrub, sterile drapes applied Local Anesthesia Used: Lidocaine 1% Amount of Anesthesia Used (mls): 3 Ultrasound Used for Placement: Yes Central Line Lumen Inserted: triple Bloods Obtained for Lab: No Central Line Position: good blood return, all ports aspirated, flushed, capped, sutured in place with nylon Dressing Applied: Tegaderm Patient Tolerated Procedure: well Complications: none Medical Decision Making - Medical Decision Making Based on the patient's presentation and physical exam, I'm concerned for an acute GI bleed which is likely secondary to his Eliquis use. Vital signs are within normal limits and stable initially. Blood pressure is 118/84. We'll obtain abdominal laboratory studies as well as cardiac labs with his history of A. fib. He was in agreement this plan. He'll be started on 1 L fluid bolus, given IV Protonix, and rectal exam is deferred for now until assistance at bedside can be obtained. EKG shows atrial fibrillation that is rate controlled. Chest x-ray shows no acute cardiopulmonary process. Laboratory studies began returning, and revealed a hemoglobin of 11.8. When the nursing staff and I went into the rectal exam, patient had a syncopal episode. Blood pressure was rechecked and patient was hypotensive, with BPs remaining in the 70s. He had a large bloody bowel movement and his boxers at that time. Patient came to and was alert and oriented 4 at that time. The decision was made to activate massive transfusion protocol. This is over concern for GI bleeding. Patient is a difficult IV stick, and therefore a right femoral central line was placed by myself after the patient was wheeled to trauma bay. Patient verbally consented to the procedure. Patient was administered a total of 2 L of fluid. He was started on MTP. Patient was in a TXA. Patient was administered KCENTRA. Patient got an additional 40 mg of protonix. Remainder the patient's laboratory studies returned and were remarkable for a mild leukocytosis of 12.9. Electrolytes revealed worsening's AK eye and CK D with a creatinine of 2.73 and GFR in the 20s. Lactic acid is elevated 4.5 likely secondary to the GI bleed. Troponin is mildly elevated to 0.044 likely secondary to type II and STEMI from GI bleed versus JYOTHI on CK D. On reevaluation, patient's vital signs are stabilizing. Blood pressures are ranging systolic from 95-110 approximately. Patient is feeling improved. He states the blood seems to be making him feel better. Has not had any further episodes of bloody bowel movements. MTP was stopped after the patient received 2 units of packed red blood cells, platelets, and plasma. I spoke with the patient informed him he will be admitted. Eliquis and aspirin will be held. It appears the patient is having a lower GI bleed. His no concern for esophageal varices at this time as he denies any history of alcohol abuse, as well as upper GI symptoms such as nausea as well as hematemesis. I spoke with our surgeon on-call, Dr. Somers who agreed to the consult. She requested that the patient be admitted under the medicine team. She was in agreement with this plan. I spoke the ICU attending, Dr. Sauceda who accepted the patient to the ICU pending bed availability. He was also in agreement with this plan. I spoke with the admitting team, josé miguel. I spoke with Dr. Arias who accepted the patient. Patient was therefore admitted to ICU in serious condition. I spoke with the patient's son, Silvano over the phone. I updated him on the patient's condition after verifying that it is okay to contact his son. Bladimir was in agreement this plan. I answered all questions that he had. - Lab Data Result diagrams: 08/11/21 21:41 08/11/21 20:04 Lab Results 08/11/21 08/11/21 08/11/21 Range/Units 20:04 20:04 20:04 WBC 12.9 H (3.8-10.6) k/uL RBC 3.59 L (4.30-5.90) m/uL Hgb 11.8 L (13.0-17.5) gm/dL Hct 36.7 L (39.0-53.0) % MCV 102.3 H (80.0-100.0) fL MCH 33.0 (25.0-35.0) pg MCHC 32.2 (31.0-37.0) g/dL RDW 16.5 H (11.5-15.5) % Plt Count 164 (150-450) k/uL MPV 7.9 Neutrophils % % Neutrophils % (Manual) 88 % Band Neuts % (Manual) 3 % Lymphocytes % % Lymphocytes % (Manual) 2 % Monocytes % % Monocytes % (Manual) 2 % Eosinophils % % Basophils % % Metamyelocytes % 2 % Myelocytes % 4 % Neutrophils # (1.3-7.7) k/uL Neutrophils # (Manual) 11.70 H (1.3-7.7) k/uL Lymphocytes # (1.0-4.8) k/uL Lymphocytes # (Manual) 0.26 L (1.0-4.8) k/uL Monocytes # (0-1.0) k/uL Monocytes # (Manual) 0.26 (0-1.0) k/uL Eosinophils # (0-0.7) k/uL Basophils # (0-0.2) k/uL Metamyelocytes # (Man) 0.26 H (0) k/uL Myelocytes # (Manual) 0.52 H (0) k/uL Nucleated RBCs 0 (0-0) /100 WBC Manual Slide Review Performed Hypochromasia Slight Poikilocytosis (manual Present Anisocytosis Slight Macrocytosis Moderate Ovalocytes Present PT 11.6 (9.0-12.0) sec INR 1.1 (<1.2) APTT 22.9 (22.0-30.0) sec Fibrinogen (200-500) mg/dL Sodium 137 (137-145) mmol/L Potassium 5.0 (3.5-5.1) mmol/L Chloride 102 (98-107) mmol/L Carbon Dioxide 22 (22-30) mmol/L Anion Gap 13 mmol/L BUN 73 H (9-20) mg/dL Creatinine 2.73 H (0.66-1.25) mg/dL Est GFR (CKD-EPI)AfAm 26 (>60 ml/min/1.73 sqM) Est GFR (CKD-EPI)NonAf 22 (>60 ml/min/1.73 sqM) Glucose 170 H (74-99) mg/dL Lactic Ac Sepsis Rflx Plasma Lactic Acid Tyson (0.7-2.0) mmol/L Calcium 9.0 (8.4-10.2) mg/dL Ionized Calcium Wilfredo (4.5-5.3) mg/dL Magnesium 2.0 (1.6-2.3) mg/dL Total Bilirubin 1.2 (0.2-1.3) mg/dL AST 34 (17-59) U/L ALT 31 (4-49) U/L Alkaline Phosphatase 53 (38-126) U/L Troponin I (0.000-0.034) ng/mL NT-Pro-B Natriuret Pep pg/mL Total Protein 5.7 L (6.3-8.2) g/dL Albumin 3.4 L (3.5-5.0) g/dL Blood Type Blood Type Confirm Blood Type Recheck Bld Type Recheck Status Antibody Screen Crossmatch Transfuse Plasma Spec Expiration Date 08/11/21 08/11/21 08/11/21 Range/Units 20:04 20:04 20:04 WBC (3.8-10.6) k/uL RBC (4.30-5.90) m/uL Hgb (13.0-17.5) gm/dL Hct (39.0-53.0) % MCV (80.0-100.0) fL MCH (25.0-35.0) pg MCHC (31.0-37.0) g/dL RDW (11.5-15.5) % Plt Count (150-450) k/uL MPV Neutrophils % % Neutrophils % (Manual) % Band Neuts % (Manual) % Lymphocytes % % Lymphocytes % (Manual) % Monocytes % % Monocytes % (Manual) % Eosinophils % % Basophils % % Metamyelocytes % % Myelocytes % % Neutrophils # (1.3-7.7) k/uL Neutrophils # (Manual) (1.3-7.7) k/uL Lymphocytes # (1.0-4.8) k/uL Lymphocytes # (Manual) (1.0-4.8) k/uL Monocytes # (0-1.0) k/uL Monocytes # (Manual) (0-1.0) k/uL Eosinophils # (0-0.7) k/uL Basophils # (0-0.2) k/uL Metamyelocytes # (Man) (0) k/uL Myelocytes # (Manual) (0) k/uL Nucleated RBCs (0-0) /100 WBC Manual Slide Review Hypochromasia Poikilocytosis (manual Anisocytosis Macrocytosis Ovalocytes PT (9.0-12.0) sec INR (<1.2) APTT (22.0-30.0) sec Fibrinogen (200-500) mg/dL Sodium (137-145) mmol/L Potassium (3.5-5.1) mmol/L Chloride (98-107) mmol/L Carbon Dioxide (22-30) mmol/L Anion Gap mmol/L BUN (9-20) mg/dL Creatinine (0.66-1.25) mg/dL Est GFR (CKD-EPI)AfAm (>60 ml/min/1.73 sqM) Est GFR (CKD-EPI)NonAf (>60 ml/min/1.73 sqM) Glucose (74-99) mg/dL Lactic Ac Sepsis Rflx Plasma Lactic Acid Tyson 4.5 H* (0.7-2.0) mmol/L Calcium (8.4-10.2) mg/dL Ionized Calcium Wilfredo (4.5-5.3) mg/dL Magnesium (1.6-2.3) mg/dL Total Bilirubin (0.2-1.3) mg/dL AST (17-59) U/L ALT (4-49) U/L Alkaline Phosphatase (38-126) U/L Troponin I 0.044 H* (0.000-0.034) ng/mL NT-Pro-B Natriuret Pep 4340 pg/mL Total Protein (6.3-8.2) g/dL Albumin (3.5-5.0) g/dL Blood Type Blood Type Confirm Blood Type Recheck Bld Type Recheck Status Antibody Screen Crossmatch Transfuse Plasma Spec Expiration Date 08/11/21 08/11/21 08/11/21 Range/Units 20:57 21:03 21:10 WBC (3.8-10.6) k/uL RBC (4.30-5.90) m/uL Hgb (13.0-17.5) gm/dL Hct (39.0-53.0) % MCV (80.0-100.0) fL MCH (25.0-35.0) pg MCHC (31.0-37.0) g/dL RDW (11.5-15.5) % Plt Count (150-450) k/uL MPV Neutrophils % % Neutrophils % (Manual) % Band Neuts % (Manual) % Lymphocytes % % Lymphocytes % (Manual) % Monocytes % % Monocytes % (Manual) % Eosinophils % % Basophils % % Metamyelocytes % % Myelocytes % % Neutrophils # (1.3-7.7) k/uL Neutrophils # (Manual) (1.3-7.7) k/uL Lymphocytes # (1.0-4.8) k/uL Lymphocytes # (Manual) (1.0-4.8) k/uL Monocytes # (0-1.0) k/uL Monocytes # (Manual) (0-1.0) k/uL Eosinophils # (0-0.7) k/uL Basophils # (0-0.2) k/uL Metamyelocytes # (Man) (0) k/uL Myelocytes # (Manual) (0) k/uL Nucleated RBCs (0-0) /100 WBC Manual Slide Review Hypochromasia Poikilocytosis (manual Anisocytosis Macrocytosis Ovalocytes PT (9.0-12.0) sec INR (<1.2) APTT (22.0-30.0) sec Fibrinogen (200-500) mg/dL Sodium (137-145) mmol/L Potassium (3.5-5.1) mmol/L Chloride (98-107) mmol/L Carbon Dioxide (22-30) mmol/L Anion Gap mmol/L BUN (9-20) mg/dL Creatinine (0.66-1.25) mg/dL Est GFR (CKD-EPI)AfAm (>60 ml/min/1.73 sqM) Est GFR (CKD-EPI)NonAf (>60 ml/min/1.73 sqM) Glucose (74-99) mg/dL Lactic Ac Sepsis Rflx Y Plasma Lactic Acid Tyson (0.7-2.0) mmol/L Calcium (8.4-10.2) mg/dL Ionized Calcium Wilfredo (4.5-5.3) mg/dL Magnesium (1.6-2.3) mg/dL Total Bilirubin (0.2-1.3) mg/dL AST (17-59) U/L ALT (4-49) U/L Alkaline Phosphatase (38-126) U/L Troponin I (0.000-0.034) ng/mL NT-Pro-B Natriuret Pep pg/mL Total Protein (6.3-8.2) g/dL Albumin (3.5-5.0) g/dL Blood Type O Positive Blood Type Confirm O Positive Blood Type Recheck No Previous Record Bld Type Recheck Status CABO Indicated Antibody Screen NEGATIVE Crossmatch See Detail Transfuse Plasma Spec Expiration Date 08/14/2021 - 230908/11/21 08/11/21 08/11/21 Range/Units 21:41 21:41 21:41 WBC 10.8 H (3.8-10.6) k/uL RBC 2.83 L (4.30-5.90) m/uL Hgb 9.4 L D (13.0-17.5) gm/dL Hct 28.8 L (39.0-53.0) % MCV 102.0 H (80.0-100.0) fL MCH 33.1 (25.0-35.0) pg MCHC 32.5 (31.0-37.0) g/dL RDW 16.0 H (11.5-15.5) % Plt Count 106 L (150-450) k/uL MPV 8.1 Neutrophils % 82 % Neutrophils % (Manual) % Band Neuts % (Manual) % Lymphocytes % 11 % Lymphocytes % (Manual) % Monocytes % 6 % Monocytes % (Manual) % Eosinophils % 0 % Basophils % 1 % Metamyelocytes % % Myelocytes % % Neutrophils # 8.9 H (1.3-7.7) k/uL Neutrophils # (Manual) (1.3-7.7) k/uL Lymphocytes # 1.2 (1.0-4.8) k/uL Lymphocytes # (Manual) (1.0-4.8) k/uL Monocytes # 0.6 (0-1.0) k/uL Monocytes # (Manual) (0-1.0) k/uL Eosinophils # 0.0 (0-0.7) k/uL Basophils # 0.1 (0-0.2) k/uL Metamyelocytes # (Man) (0) k/uL Myelocytes # (Manual) (0) k/uL Nucleated RBCs (0-0) /100 WBC Manual Slide Review Hypochromasia Slight Poikilocytosis (manual Anisocytosis Macrocytosis Slight Ovalocytes PT 12.5 H (9.0-12.0) sec INR 1.2 H (<1.2) APTT 22.3 (22.0-30.0) sec Fibrinogen 358 (200-500) mg/dL Sodium (137-145) mmol/L Potassium (3.5-5.1) mmol/L Chloride (98-107) mmol/L Carbon Dioxide (22-30) mmol/L Anion Gap mmol/L BUN (9-20) mg/dL Creatinine (0.66-1.25) mg/dL Est GFR (CKD-EPI)AfAm (>60 ml/min/1.73 sqM) Est GFR (CKD-EPI)NonAf (>60 ml/min/1.73 sqM) Glucose (74-99) mg/dL Lactic Ac Sepsis Rflx Plasma Lactic Acid Tyson (0.7-2.0) mmol/L Calcium (8.4-10.2) mg/dL Ionized Calcium Wilfredo 4.7 (4.5-5.3) mg/dL Magnesium (1.6-2.3) mg/dL Total Bilirubin (0.2-1.3) mg/dL AST (17-59) U/L ALT (4-49) U/L Alkaline Phosphatase (38-126) U/L Troponin I (0.000-0.034) ng/mL NT-Pro-B Natriuret Pep pg/mL Total Protein (6.3-8.2) g/dL Albumin (3.5-5.0) g/dL Blood Type Blood Type Confirm Blood Type Recheck Bld Type Recheck Status Antibody Screen Crossmatch Transfuse Plasma Spec Expiration Date 08/11/21 08/11/21 Range/Units 21:56 21:56 WBC (3.8-10.6) k/uL RBC (4.30-5.90) m/uL Hgb (13.0-17.5) gm/dL Hct (39.0-53.0) % MCV (80.0-100.0) fL MCH (25.0-35.0) pg MCHC (31.0-37.0) g/dL RDW (11.5-15.5) % Plt Count (150-450) k/uL MPV Neutrophils % % Neutrophils % (Manual) % Band Neuts % (Manual) % Lymphocytes % % Lymphocytes % (Manual) % Monocytes % % Monocytes % (Manual) % Eosinophils % % Basophils % % Metamyelocytes % % Myelocytes % % Neutrophils # (1.3-7.7) k/uL Neutrophils # (Manual) (1.3-7.7) k/uL Lymphocytes # (1.0-4.8) k/uL Lymphocytes # (Manual) (1.0-4.8) k/uL Monocytes # (0-1.0) k/uL Monocytes # (Manual) (0-1.0) k/uL Eosinophils # (0-0.7) k/uL Basophils # (0-0.2) k/uL Metamyelocytes # (Man) (0) k/uL Myelocytes # (Manual) (0) k/uL Nucleated RBCs (0-0) /100 WBC Manual Slide Review Hypochromasia Poikilocytosis (manual Anisocytosis Macrocytosis Ovalocytes PT (9.0-12.0) sec INR (<1.2) APTT (22.0-30.0) sec Fibrinogen (200-500) mg/dL Sodium (137-145) mmol/L Potassium (3.5-5.1) mmol/L Chloride (98-107) mmol/L Carbon Dioxide (22-30) mmol/L Anion Gap mmol/L BUN (9-20) mg/dL Creatinine (0.66-1.25) mg/dL Est GFR (CKD-EPI)AfAm (>60 ml/min/1.73 sqM) Est GFR (CKD-EPI)NonAf (>60 ml/min/1.73 sqM) Glucose (74-99) mg/dL Lactic Ac Sepsis Rflx Plasma Lactic Acid Tyson (0.7-2.0) mmol/L Calcium (8.4-10.2) mg/dL Ionized Calcium Wilfredo (4.5-5.3) mg/dL Magnesium (1.6-2.3) mg/dL Total Bilirubin (0.2-1.3) mg/dL AST (17-59) U/L ALT (4-49) U/L Alkaline Phosphatase (38-126) U/L Troponin I (0.000-0.034) ng/mL NT-Pro-B Natriuret Pep pg/mL Total Protein (6.3-8.2) g/dL Albumin (3.5-5.0) g/dL Blood Type Blood Type Confirm Blood Type Recheck Bld Type Recheck Status Antibody Screen Crossmatch Transfuse Plasma 08/21/21 08/21/21 Spec Expiration Date - EKG Data -: EKG Interpreted by Me EKG Comments: 12-lead Electrocardiogram Interpretation Note EKG was reviewed and interpreted by myself. 12-lead ECG performed at 2019 is in terpreted by me as revealing atrial fibrillation, rate controlled at a rate of 99 beats per minute. Left axis deviation. MA interval is unobtainable. QRS duration is 100 ms. QTC is 424 ms.. There were no ST or T wave abnormalities to suggest myocardial ischemia or injury. R wave progression across the precordium was satisfactory. By my interpretation this EKG is non-diagnostic for acute ischemia. Critical Care Time Critical Care Time: Yes Total Critical Care Time: 35 Critical Care Time: Upon my evaluation, this patient had a high probability of imminent or life- threatening deterioration due to GI bleed, which required my direct attention, intervention, and personal management. I have personally provided 35 minutes of critical care time exclusive of time spent on separately billable procedures. Time includes review of laboratory data, radiology results, discussion with consultants, and monitoring for potential decompensation. Interventions were performed as documented in my note. Disposition Clinical Impression: Hematochezia, Melena, GI bleed, Hypotension, Atrial fibrillation Disposition: ADMITTED IP TO THIS HOSP Condition: Serious
[2021-08-12 00:38] LABS: Anisocytosis Slight; HCT 28.8 % (39.0-53.0); HGB 9.4 gm/dL (13.0-17.5); Hypochromasia Slight; MCH 32.8 pg (25.0-35.0); MCHC 32.7 g/dL (31.0-37.0); MCV 100.5 fL (80.0-100.0); Macrocytosis Moderate; Mean Platelet Volume 7.5; Platelet Count 79 k/uL (150-450); RBC 2.86 m/uL (4.30-5.90); RDW 17.8 % (11.5-15.5); WBC 6.8 k/uL (3.8-10.6)
[2021-08-12 01:16] LABS: Band Neutrophils % 6 %; Lymphocytes # (M) 0.27 k/uL (1.0-4.8); Metamyelocytes # (M) 0.41 k/uL (0); Metamyelocytes % 6 %; Monocytes # (M) 0.14 k/uL (0-1.0); Neutrophils % (M) 82 %; Nucleated Red Blood Cells 0 /100 WBC (0-0); Total Cells Counted 200
[2021-08-12 01:17] LABS: Anisocytosis (M) Present; Toxic Granulation Present
--- NOTE | 2021-08-12 01:45 | P.HPIM ---
History of Present Illness H&P Date: 08/11/21 Chief Complaint: GIbleed 71-year-old male with A. fib on Eliquis, CK D, CAD status post stents 10 years ago Patient comes in with repeated episodes of GI bleeding, he reports that all started as some mild bleeding that he noticed after he had his pacemaker inserted however he's been on Eliquis for many years before that. This has progressed 4 over the past day or 2 patient started having heavy GI bleeding diarrhea like every time he drinks water or eats anything denies any associated abdominal pain but today he was starting to get dizzy and lightheaded however still denies any shortness of breath or chest pain. He denies any history of GI bleeding. He denies any history of blood clots. He had colonoscopy done 2 years ago he believes it was normal. Patient decided to come in today for evaluation after having couple episodes of very large bloody bowel movement patient was having near syncope episodes for which she decided come in for evaluation In the ED upon initial evaluation he showed mild anemia but then upon repeat hemoglobin yesterday significant drop of about 5 g from a baseline of 14 down to 9 hemoglobin. Patient was initiated on blood transfusion fresh frozen plasma, patient given KCentra and tranexamic acid. Will be admitted to the ICU for close monitoring Patient also admits to an episode of falling couple weeks ago and was an accide ntal fall when he tripped on wires and the floor resulted in some significant bruising over his chest and leg Patient also has some weeping right lower extremity edema. Review of Systems Pertinent positives as noted in HPI. 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 SEE DR. PAYNE'S H & P Last Myocardial Infarction Date:: 2010 History of Any Multi-Drug Resistant Organisms: None Reported Past Surgical History: Cholecystectomy, Heart Catheterization With Stent, Joint Replacement, Orthopedic Surgery, Tonsillectomy Additional Past Surgical History / Comment(s): BILAT TKA AND DANIELLE, BILAT KNEE SCOPES, COLONOSCOPIES, CARDIOVERSION 04/03/21, pacemaker placed 07/15/21 Past Anesthesia/Blood Transfusion Reactions: No Reported Reaction Date of Last Stent Placement:: 2010 Past Psychological History: No Psychological Hx Reported Smoking Status: Never smoker Past Alcohol Use History: Occasional Past Drug Use History: None Reported - Past Family History Mother Family Medical History: Cancer Additional Family Medical History / Comment(s): Mother of breast cancer at the age of 79yrs. Father Family Medical History: Coronary Artery Disease (CAD) Additional Family Medical History / Comment(s): Father had heart problems. He had coronary valve replacement. He at the age of 83 yrs. Medications and Allergies Home Medications Medication Instructions Recorded Confirmed Type ALPRAZolam [Xanax] 1 mg PO HS 04/15/15 08/11/21 History Apixaban [Eliquis] 5 mg PO BID 04/15/15 08/11/21 History Aspirin [Adult Low Dose Aspirin EC] 81 mg PO DAILY 04/09/16 08/11/21 History Latanoprost Ophth [Xalatan 0.005%] 1 drops BOTH EYES HS ml 04/13/16 08/11/21 Rx allopurinoL [Zyloprim] 100 mg PO DAILY 05/07/19 08/11/21 History Acetaminophen-Codeine 300-30mg 1 tab PO Q6H PRN 01/20/21 08/11/21 History [Tylenol w/codeine #3] Atorvastatin [Lipitor] 80 mg PO DAILY 02/20/21 08/11/21 History Pantoprazole Sodium [Protonix] 40 mg PO DAILY 02/20/21 08/11/21 History Spironolactone [Aldactone] 25 mg PO DAILY 30 Days #30 tab 02/24/21 08/11/21 Rx Furosemide [Lasix] 60 mg PO DAILY 03/30/21 08/11/21 History Metoprolol Succinate (ER) [Toprol 25 mg PO DAILY #90 tab 04/03/21 08/11/21 Rx XL] Amiodarone HCl [Pacerone] 100 mg PO DAILY 08/11/21 08/11/21 History Ferrous Sulfate [Feosol] 325 mg PO DAILY 08/11/21 08/11/21 History Menthol-Zinc Oxide Oint 1 applic TOPICAL BID PRN 08/11/21 08/11/21 History [Calmoseptine Oint] Metoclopramide [Reglan] 5 mg PO W/BRKFST 08/11/21 08/11/21 History Metoprolol Succinate [Toprol XL] 50 mg PO HS 08/11/21 08/11/21 History SILVER sulfADIAZINE CREAM 1 applic TOPICAL DAILY PRN 08/11/21 08/11/21 History [Silvadene Cream] Allergies Allergy/AdvReac Type Severity Reaction Status Date / Time No Known Allergies Allergy Verified 08/11/21 22:01 Physical Exam Vitals: Vital Signs Temp Pulse Resp BP Pulse Ox 08/12/21 01:10 92 18 74/58 95 08/12/21 00:56 90 18 83/51 99 08/12/21 00:18 78 20 86/55 95 08/11/21 19:19 97.4 F L 51 L 18 118/84 100 Intake and Output 08/11/21 08/11/21 08/12/21 14:59 22:59 06:59 Other: Weight 117.934 kg Constitutional: No acute distress, conversant, pleasant Eyes: Anicteric sclerae, moist conjunctiva, Pupils equal round reactive to light ENMT: NC/AT Oropharynx clear, no erythema, or exudates Neck: Supple, no masses, or JVD No carotid bruits No thyromegaly Lungs: Clear to auscultation Clear to percussion Normal respiratory effort, no accessory muscle use Cardiovascular: Heart regular in rate and rhythm, No murmurs, gallops, or rubs +3 bilateral peripheral edema Abdominal: Soft Nontender, no guarding, rebound or rigidity Abdomen moving with respiration Normoactive bowel sounds No hepatomegaly, No splenomegaly No palpable mass No abdominal wall hernia noted Skin: Multiple areas of bruising and ecchymosis over the mid chest and both arms and bilateral legs., Blood weeping of right lower extremity edema over the distal third of the leg with blisters and significant edema otherewise, Normal temperature, tone, texture, turgor No induration No subcutaneous nodules No rash, lesions No ulcers Extremities: No digital cyanosis No clubbing Pedal pulses difficult to assess due to significant pedal edema bilaterally, capillary refill immediate Radial pulses intact and symmetrical No calf tenderness Psychiatric: Alert and oriented to person, place and time Appropriate affect fair judgement Neuro Muscles Strength 3-4/5 in all 4 extremities Sensation to light touch grossly present throughout Cranial nerves II-XII grossly intact No focal sensory deficits Lymphatics: no palpable cervical or supraclavicular , or inguinal lymph nodes Results CBC & Chem 7: 08/12/21 00:15 08/11/21 20:04 Labs: Abnormal Lab Results - Last 24 Hours (Table) 08/11/21 08/11/21 08/11/21 Range/Units 20:04 20:04 20:04 WBC 12.9 H (3.8-10.6) k/uL RBC 3.59 L (4.30-5.90) m/uL Hgb 11.8 L (13.0-17.5) gm/dL Hct 36.7 L (39.0-53.0) % MCV 102.3 H (80.0-100.0) fL RDW 16.5 H (11.5-15.5) % Plt Count (150-450) k/uL Neutrophils # (1.3-7.7) k/uL Neutrophils # (Manual) 11.70 H (1.3-7.7) k/uL Lymphocytes # (Manual) 0.26 L (1.0-4.8) k/uL Metamyelocytes # (Man) 0.26 H (0) k/uL Myelocytes # (Manual) 0.52 H (0) k/uL PT (9.0-12.0) sec INR (<1.2) BUN 73 H (9-20) mg/dL Creatinine 2.73 H (0.66-1.25) mg/dL Glucose 170 H (74-99) mg/dL Plasma Lactic Acid Tyson 4.5 H* (0.7-2.0) mmol/L Troponin I (0.000-0.034) ng/mL Total Protein 5.7 L (6.3-8.2) g/dL Albumin 3.4 L (3.5-5.0) g/dL Crossmatch 08/11/21 08/11/21 08/11/21 Range/Units 20:04 21:10 21:41 WBC 10.8 H (3.8-10.6) k/uL RBC 2.83 L (4.30-5.90) m/uL Hgb 9.4 L D (13.0-17.5) gm/dL Hct 28.8 L (39.0-53.0) % MCV 102.0 H (80.0-100.0) fL RDW 16.0 H (11.5-15.5) % Plt Count 106 L (150-450) k/uL Neutrophils # 8.9 H (1.3-7.7) k/uL Neutrophils # (Manual) (1.3-7.7) k/uL Lymphocytes # (Manual) (1.0-4.8) k/uL Metamyelocytes # (Man) (0) k/uL Myelocytes # (Manual) (0) k/uL PT (9.0-12.0) sec INR (<1.2) BUN (9-20) mg/dL Creatinine (0.66-1.25) mg/dL Glucose (74-99) mg/dL Plasma Lactic Acid Tyson (0.7-2.0) mmol/L Troponin I 0.044 H* (0.000-0.034) ng/mL Total Protein (6.3-8.2) g/dL Albumin (3.5-5.0) g/dL Crossmatch See Detail 08/11/21 08/12/21 Range/Units 21:41 00:15 WBC (3.8-10.6) k/uL RBC 2.86 L (4.30-5.90) m/uL Hgb 9.4 L (13.0-17.5) gm/dL Hct 28.8 L (39.0-53.0) % MCV 100.5 H (80.0-100.0) fL RDW 17.8 H (11.5-15.5) % Plt Count 79 L (150-450) k/uL Neutrophils # (1.3-7.7) k/uL Neutrophils # (Manual) (1.3-7.7) k/uL Lymphocytes # (Manual) 0.27 L (1.0-4.8) k/uL Metamyelocytes # (Man) 0.41 H (0) k/uL Myelocytes # (Manual) (0) k/uL PT 12.5 H (9.0-12.0) sec INR 1.2 H (<1.2) BUN (9-20) mg/dL Creatinine (0.66-1.25) mg/dL Glucose (74-99) mg/dL Plasma Lactic Acid Tyson (0.7-2.0) mmol/L Troponin I (0.000-0.034) ng/mL Total Protein (6.3-8.2) g/dL Albumin (3.5-5.0) g/dL Crossmatch Assessment and Plan Assessment: Acute GI bleeding Acute symptomatic anemia secondary to GI bleeding Monitor hemoglobin Blood transfusion, fresh frozen plasma transfusion Hold Eliquis Patient given kcentra and tranexamic surgery consultation Fall precautions Gen. surgery consultation Reports colonoscopy 2 years ago is unremarkable Chronic conditions Bilateral skin changes of the legs due to venous stasis ulcers Paroxysmal A. fib status post pacemaker on Eliquis CK D Hypertension History of CAD status post stents 10 years ago Resume home medications Hold ASPIRIN and Eliquis Full code Anticipated length of stay more than 2 midnights DVT prophylaxis mechanical GI prophylaxis Protonix Anticipated length of stay more than 2 midnights
[2021-08-12 07:03] LABS: Anisocytosis Slight; HCT 31.3 % (39.0-53.0); HGB 10.3 gm/dL (13.0-17.5); Hypochromasia Slight; MCH 32.3 pg (25.0-35.0); MCHC 32.9 g/dL (31.0-37.0); Macrocytosis Slight; Mean Platelet Volume 12.2; Platelet Count 56 k/uL (150-450); Poikilocytosis Slight
[2021-08-12 07:39] LABS: Band Neutrophils % 2 %; Lymphocytes # (M) 0.96 k/uL (1.0-4.8); Metamyelocytes # (M) 0.24 k/uL (0); Metamyelocytes % 3 %; Monocytes # (M) 0.24 k/uL (0-1.0); Neutrophils % (M) 80 %; Nucleated Red Blood Cells 0 /100 WBC (0-0); Total Cells Counted 100
[2021-08-12 08:25] LABS: INR 1.1 (<1.2); Prothrombin Time 11.4 sec (9.0-12.0)
[2021-08-12 08:31] LABS: Potassium 4.1 mmol/L (3.5-5.1)
[2021-08-12] MEDS ORDERED: SPIRONOLACTONE 25 MG TAB PO SCH (09:00)
[2021-08-12] MEDS ORDERED: METOPROLOL SUCCINATE (ER) 25 MG TAB.ER.24H PO SCH (09:00)
--- NOTE | 2021-08-12 11:30 | P.CNPUL ---
History of Present Illness Consult date: 08/12/21 Requesting physician: Clarissa Arias Reason for consult: other (Critical care management) Chief complaint: Bloody bowel movements History of present illness: This is a pleasant 71-year-old male patient who has a history of atrial fibrillation anticoagulated with Eliquis, recent biventricular pacemaker insertion on 07/13/2021 and subsequent evacuation of hematoma on 07/24/2021. He also has a history of obstructive sleep apnea maintained on BiPAP, chronic kidney disease stage III, nephrolithiasis, hyperlipidemia, hypertension, coronary artery disease with previous stent placement, osteoarthritis with previous joint replacements, obesity. Nonsmoker. He presented to the emergency room last evening with a three-week history of increasing bloody bowel movements. Initially just a small amount of blood noted in and it progressed and yesterday he had multiple large bloody bowel movements. He also had some lightheadedness. No abdominal discomfort. No shortness of breath. No chest p ain. He is seen today in consultation in the emergency department. He is awake and alert in no acute distress. He is maintaining O2 saturations in the 90s on 2 L/m per nasal cannula. He has 0.9 normal saline at KVO. White count 8.0. Hemoglobin 10.3. Platelets 56,000. INR 1.1. Fibrinogen 358. Pro time 11.4. Sodium 140. Potassium 4.1. Bicarb 27. BUN 65. Creatinine 2.22. GFR 28. Troponin 0.035. Thakur virus by PCR not detected. He has received 1 unit of fresh frozen plasma. 2 units of packed red blood cells on hold. This x-ray reveals mild atelectasis in the right lung base without change compared to previous on 07/17/2021. No congestive heart failure. EKG reveals atrial fibrillation with controlled ventricular response. Review of Systems REVIEW OF SYSTEMS: CONSTITUTIONAL: Denies any recent significant weight loss or weight gain. EYES: Denies change in vision. EARS, NOSE, MOUTH, THROAT: Denies headaches, denies sore throat. CARDIOVASCULAR: Denies chest pain, palpitations or syncopal episodes. RESPIRATORY: Denies shortness of breath, cough, congestion or hemoptysis. GASTROINTESTINAL: Positive for bloody stools, denies abdominal pain GENITOURINARY: Denies hematuria, denies infections. MUSKULOSKELETAL: Denies pain, denies swelling. INTEGUMENTARY: Denies rash, denies eczema. NEUROLOGICAL: Denies recent memory loss, no recent seizure activity. PSYCHIATRIC: Denies anxiety, denies depression. HEMATOLOGIC/LYMPHATIC: Denies anemia, denies enlarged lymph nodes. 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 SEE DR. PAYNE'S H & P Last Myocardial Infarction Date:: 2010 History of Any Multi-Drug Resistant Organisms: None Reported Past Surgical History: Cholecystectomy, Heart Catheterization With Stent, Joint Replacement, Orthopedic Surgery, Tonsillectomy Additional Past Surgical History / Comment(s): BILAT TKA AND DANIELLE, BILAT KNEE SCOPES, COLONOSCOPIES, CARDIOVERSION 04/03/21, pacemaker placed 07/15/21 Past Anesthesia/Blood Transfusion Reactions: No Reported Reaction Date of Last Stent Placement:: 2010 Past Psychological History: No Psychological Hx Reported Smoking Status: Never smoker Past Alcohol Use History: Occasional Past Drug Use History: None Reported - Past Family History Mother Family Medical History: Cancer Additional Family Medical History / Comment(s): Mother of breast cancer at the age of 79yrs. Father Family Medical History: Coronary Artery Disease (CAD) Additional Family Medical History / Comment(s): Father had heart problems. He had coronary valve replacement. He at the age of 83 yrs. Medications and Allergies Home Medications Medication Instructions Recorded Confirmed Type ALPRAZolam [Xanax] 1 mg PO HS 04/15/15 08/11/21 History Apixaban [Eliquis] 5 mg PO BID 04/15/15 08/11/21 History Aspirin [Adult Low Dose Aspirin EC] 81 mg PO DAILY 04/09/16 08/11/21 History Latanoprost Ophth [Xalatan 0.005%] 1 drops BOTH EYES HS ml 04/13/16 08/11/21 Rx allopurinoL [Zyloprim] 100 mg PO DAILY 05/07/19 08/11/21 History Acetaminophen-Codeine 300-30mg 1 tab PO Q6H PRN 01/20/21 08/11/21 History [Tylenol w/codeine #3] Atorvastatin [Lipitor] 80 mg PO DAILY 02/20/21 08/11/21 History Pantoprazole Sodium [Protonix] 40 mg PO DAILY 02/20/21 08/11/21 History Spironolactone [Aldactone] 25 mg PO DAILY 30 Days #30 tab 02/24/21 08/11/21 Rx Furosemide [Lasix] 60 mg PO DAILY 03/30/21 08/11/21 History Metoprolol Succinate (ER) [Toprol 25 mg PO DAILY #90 tab 04/03/21 08/11/21 Rx XL] Amiodarone HCl [Pacerone] 100 mg PO DAILY 08/11/21 08/11/21 History Ferrous Sulfate [Feosol] 325 mg PO DAILY 08/11/21 08/11/21 History Menthol-Zinc Oxide Oint 1 applic TOPICAL BID PRN 08/11/21 08/11/21 History [Calmoseptine Oint] Metoclopramide [Reglan] 5 mg PO W/BRKFST 08/11/21 08/11/21 History Metoprolol Succinate [Toprol XL] 50 mg PO HS 08/11/21 08/11/21 History SILVER sulfADIAZINE CREAM 1 applic TOPICAL DAILY PRN 08/11/21 08/11/21 History [Silvadene Cream] Allergies Allergy/AdvReac Type Severity Reaction Status Date / Time No Known Allergies Allergy Verified 08/11/21 22:01 Physical Exam Vitals: Vital Signs Temp Pulse Resp BP Pulse Ox 08/12/21 08:09 95 18 102/74 100 08/12/21 06:00 80 18 100/61 96 08/12/21 05:00 84 18 120/74 95 08/12/21 04:00 84 18 112/77 96 08/12/21 03:00 82 18 104/73 95 08/12/21 01:10 92 18 74/58 95 08/12/21 00:56 90 18 83/51 99 08/12/21 00:18 78 20 86/55 95 08/11/21 22:21 98.7 F 94 18 102/74 94 L 08/11/21 22:13 98.7 F 94 18 105/81 94 L 08/11/21 22:10 98.7 F 106 H 18 111/68 96 08/11/21 22:00 98.7 F 95 18 101/66 95 08/11/21 21:46 98.7 F 88 18 95/63 95 08/11/21 21:30 98.6 F 89 18 102/66 94 L 08/11/21 19:19 97.4 F L 51 L 18 118/84 100 Intake and Output 08/11/21 08/12/21 08/12/21 22:59 06:59 14:59 Intake Total 0 281 Output Total 700 250 Balance 0 -700 31 Intake: Blood Product 0 281 Ffp 24 Cpd Unit 0 281 [id number] Output: Urine 700 250 Uretheral (Pat) 700 250 Other: Weight 117.934 kg GENERAL EXAM: Alert, very pleasant 71-year-old gentleman, on 2 L nasal cannula, comfortable in no apparent distress. HEAD: Normocephalic. EYES: Normal reaction of pupils, equal size. NOSE: Clear with pink turbinates. THROAT: No erythema or exudates. NECK: No masses, no JVD. CHEST: No chest wall deformity. LUNGS: Equal air entry with no crackles, wheeze, rhonchi or dullness. CVS: S1 and S2 normal with no audible murmur, regular rhythm. ABDOMEN: No hepatosplenomegaly, normal bowel sounds, no guarding or rigidity. SPINE: No scoliosis or deformity SKIN: No rashes CENTRAL NERVOUS SYSTEM: No focal deficits, tone is normal in all 4 extremities. EXTREMITIES: There is no peripheral edema. No clubbing, no cyanosis. Peripheral pulses are intact. Results - Laboratory Findings CBC and BMP: 08/12/21 05:51 08/12/21 08:05 PT/INR, D-dimer PT 11.4 sec (9.0-12.0) 08/12/21 08:05 INR 1.1 (<1.2) 08/12/21 08:05 Abnormal lab findings: Abnormal Labs 08/11/21 08/11/21 08/11/21 20:04 20:04 20:04 WBC 12.9 H RBC 3.59 L Hgb 11.8 L Hct 36.7 L MCV 102.3 H RDW 16.5 H Plt Count Neutrophils # Neutrophils # (Manual) 11.70 H Lymphocytes # (Manual) 0.26 L Metamyelocytes # (Man) 0.26 H Myelocytes # (Manual) 0.52 H PT INR Chloride BUN 73 H Creatinine 2.73 H Glucose 170 H Plasma Lactic Acid Tyson 4.5 H* Calcium Troponin I Total Protein 5.7 L Albumin 3.4 L Crossmatch 08/11/21 08/11/21 08/11/21 20:04 21:10 21:41 WBC 10.8 H RBC 2.83 L Hgb 9.4 L D Hct 28.8 L MCV 102.0 H RDW 16.0 H Plt Count 106 L Neutrophils # 8.9 H Neutrophils # (Manual) Lymphocytes # (Manual) Metamyelocytes # (Man) Myelocytes # (Manual) PT INR Chloride BUN Creatinine Glucose Plasma Lactic Acid Tyson Calcium Troponin I 0.044 H* Total Protein Albumin Crossmatch See Detail 08/11/21 08/12/21 08/12/21 21:41 00:15 05:51 WBC RBC 2.86 L 3.20 L Hgb 9.4 L 10.3 L Hct 28.8 L 31.3 L MCV 100.5 H RDW 17.8 H 18.0 H Plt Count 79 L 56 L Neutrophils # Neutrophils # (Manual) Lymphocytes # (Manual) 0.27 L 0.96 L Metamyelocytes # (Man) 0.41 H 0.24 H Myelocytes # (Manual) PT 12.5 H INR 1.2 H Chloride BUN Creatinine Glucose Plasma Lactic Acid Tyson Calcium Troponin I Total Protein Albumin Crossmatch 08/12/21 08/12/21 08:05 08:05 WBC RBC Hgb Hct MCV RDW Plt Count Neutrophils # Neutrophils # (Manual) Lymphocytes # (Manual) Metamyelocytes # (Man) Myelocytes # (Manual) PT INR Chloride 109 H BUN 65 H Creatinine 2.22 H Glucose Plasma Lactic Acid Tyson Calcium 8.0 L Troponin I 0.035 H* Total Protein Albumin Crossmatch - Diagnostic Findings Chest x-ray: image reviewed Assessment and Plan Assessment: 1 Acute GI bleed with drop in hemoglobin from 11.8 to 9.4. Currently 10.3. 2 units of packed red blood cells on hold. Received 1 unit fresh frozen plasma. 2 Thrombocytopenia with platelet count and 56,000 3 Atrial fibrillation, anticoagulated with Eliquis in the outpatient setting, currently on hold 4 BiV pacemaker implant on 07/13/2021, required additional wound closure due to oozing of blood on 07/24/2021 5 History of coronary disease with previous stent placement 6 Troponin leak 7 Hypertension 8 Obstructive sleep apnea utilizing BiPAP 9 Osteoarthritis with previous joint replacements 10 Obesity 11 Hyperlipidemia Plan: The patient was seen and evaluated Does not meet criteria for ICU admission We'll plan for admission to the selective care unit Surgical consult pending Continue to watch for additional GI bleed Continue to monitor hemoglobin We will see as needed I, the cosigning physician, performed a history & physical examination of the patient. Lungs sounds are clear. Maintaining good O2 saturations in the 90s on 2 L/m per nasal cannula. I discussed the assessment and plan of care with my nurse practitioner, Dionna Nicholson. I attest to the above note as dictated by her. I have personally seen and examined the patient, performed the documentation and the assessment and plan as written. Number of minutes spent on the visit: 20.
--- NOTE | 2021-08-12 13:38 | P.PN ---
Subjective Progress Note Date: 08/12/21 Pt has no new complaints today. No further episodes of hematochezia, no n/v/abd pain. Only reports some shoulder pain from his right shoulder from his previous fall. Pending surgery consultation. Hgb stable. Objective - Vital Signs Vital signs: Vital Signs Temp 98.4 F 08/12/21 10:45 Pulse 74 08/12/21 10:45 Resp 18 08/12/21 10:45 BP 96/62 08/12/21 10:45 Pulse Ox 100 08/12/21 10:45 Intake & Output 08/11/21 08/12/21 08/12/21 18:59 06:59 18:59 Intake Total 0 281 Output Total 700 250 Balance -700 31 Weight 117.934 kg Intake: Blood Product 0 281 Ffp 24 Cpd Unit 0 281 [id number] Output: Urine 700 250 Uretheral (Esquivel) 700 250 - Exam Gen: awake, alert HEENT: normocephalic, atraumatic, good hearing acuity, moist mucous membranes Resp: good air exchange, breathing comfortably with no accessory muscle use CVS: good distal perfusion x 4, RRR, no murmurs GI: soft, NTTP, ND : no SPT, no CVAT, esquivel catheter not present MSK: +pitting edema, no clubbing Neuro: non-focal, moving all extremities Psych: cooperative, euthymic mood - Labs CBC & Chem 7: 08/12/21 05:51 08/12/21 08:05 Labs: Abnormal Lab Results - Last 24 Hours (Table) 08/11/21 08/11/21 08/11/21 Range/Units 20:04 20:04 20:04 WBC 12.9 H (3.8-10.6) k/uL RBC 3.59 L (4.30-5.90) m/uL Hgb 11.8 L (13.0-17.5) gm/dL Hct 36.7 L (39.0-53.0) % MCV 102.3 H (80.0-100.0) fL RDW 16.5 H (11.5-15.5) % Plt Count (150-450) k/uL Neutrophils # (1.3-7.7) k/uL Neutrophils # (Manual) 11.70 H (1.3-7.7) k/uL Lymphocytes # (Manual) 0.26 L (1.0-4.8) k/uL Metamyelocytes # (Man) 0.26 H (0) k/uL Myelocytes # (Manual) 0.52 H (0) k/uL PT (9.0-12.0) sec INR (<1.2) Chloride (98-107) mmol/L BUN 73 H (9-20) mg/dL Creatinine 2.73 H (0.66-1.25) mg/dL Glucose 170 H (74-99) mg/dL Plasma Lactic Acid Tyson 4.5 H* (0.7-2.0) mmol/L Calcium (8.4-10.2) mg/dL Troponin I (0.000-0.034) ng/mL Total Protein 5.7 L (6.3-8.2) g/dL Albumin 3.4 L (3.5-5.0) g/dL Crossmatch 08/11/21 08/11/21 08/11/21 Range/Units 20:04 21:10 21:41 WBC 10.8 H (3.8-10.6) k/uL RBC 2.83 L (4.30-5.90) m/uL Hgb 9.4 L D (13.0-17.5) gm/dL Hct 28.8 L (39.0-53.0) % MCV 102.0 H (80.0-100.0) fL RDW 16.0 H (11.5-15.5) % Plt Count 106 L (150-450) k/uL Neutrophils # 8.9 H (1.3-7.7) k/uL Neutrophils # (Manual) (1.3-7.7) k/uL Lymphocytes # (Manual) (1.0-4.8) k/uL Metamyelocytes # (Man) (0) k/uL Myelocytes # (Manual) (0) k/uL PT (9.0-12.0) sec INR (<1.2) Chloride (98-107) mmol/L BUN (9-20) mg/dL Creatinine (0.66-1.25) mg/dL Glucose (74-99) mg/dL Plasma Lactic Acid Tyson (0.7-2.0) mmol/L Calcium (8.4-10.2) mg/dL Troponin I 0.044 H* (0.000-0.034) ng/mL Total Protein (6.3-8.2) g/dL Albumin (3.5-5.0) g/dL Crossmatch See Detail 08/11/21 08/12/21 08/12/21 Range/Units 21:41 00:15 05:51 WBC (3.8-10.6) k/uL RBC 2.86 L 3.20 L (4.30-5.90) m/uL Hgb 9.4 L 10.3 L (13.0-17.5) gm/dL Hct 28.8 L 31.3 L (39.0-53.0) % MCV 100.5 H (80.0-100.0) fL RDW 17.8 H 18.0 H (11.5-15.5) % Plt Count 79 L 56 L (150-450) k/uL Neutrophils # (1.3-7.7) k/uL Neutrophils # (Manual) (1.3-7.7) k/uL Lymphocytes # (Manual) 0.27 L 0.96 L (1.0-4.8) k/uL Metamyelocytes # (Man) 0.41 H 0.24 H (0) k/uL Myelocytes # (Manual) (0) k/uL PT 12.5 H (9.0-12.0) sec INR 1.2 H (<1.2) Chloride (98-107) mmol/L BUN (9-20) mg/dL Creatinine (0.66-1.25) mg/dL Glucose (74-99) mg/dL Plasma Lactic Acid Tyson (0.7-2.0) mmol/L Calcium (8.4-10.2) mg/dL Troponin I (0.000-0.034) ng/mL Total Protein (6.3-8.2) g/dL Albumin (3.5-5.0) g/dL Crossmatch 08/12/21 08/12/21 Range/Units 08:05 08:05 WBC (3.8-10.6) k/uL RBC (4.30-5.90) m/uL Hgb (13.0-17.5) gm/dL Hct (39.0-53.0) % MCV (80.0-100.0) fL RDW (11.5-15.5) % Plt Count (150-450) k/uL Neutrophils # (1.3-7.7) k/uL Neutrophils # (Manual) (1.3-7.7) k/uL Lymphocytes # (Manual) (1.0-4.8) k/uL Metamyelocytes # (Man) (0) k/uL Myelocytes # (Manual) (0) k/uL PT (9.0-12.0) sec INR (<1.2) Chloride 109 H (98-107) mmol/L BUN 65 H (9-20) mg/dL Creatinine 2.22 H (0.66-1.25) mg/dL Glucose (74-99) mg/dL Plasma Lactic Acid Tyson (0.7-2.0) mmol/L Calcium 8.0 L (8.4-10.2) mg/dL Troponin I 0.035 H* (0.000-0.034) ng/mL Total Protein (6.3-8.2) g/dL Albumin (3.5-5.0) g/dL Crossmatch Assessment and Plan Assessment: Acute GI bleeding Acute symptomatic anemia secondary to GI bleeding Monitor hemoglobin Blood transfusion, fresh frozen plasma transfusion Hold Eliquis Patient given kcentra and tranexamic surgery consultation Fall precautions Gen. surgery consultation Reports colonoscopy 2 years ago is unremarkable Bilateral skin changes of the legs due to venous stasis ulcers Paroxysmal A. fib status post pacemaker on Eliquis CK D Hypertension History of CAD status post stents 10 years ago Resume home medications Hold ASPIRIN and Eliquis Full code DVT prophylaxis mechanical GI prophylaxis Protonix Anticipated length of stay more than 2 midnights
--- NOTE | 2021-08-12 14:16 | XR ---
EXAMINATION TYPE: XR shoulder limited RT DATE OF EXAM: 08/12/2021 COMPARISON: NONE HISTORY: Shoulder pain TECHNIQUE: 2 views FINDINGS: There is no evidence of fracture nor dislocation. Glenohumeral joint is intact AC joint is intact. There is some atelectasis right lung base. IMPRESSION: No evidence of shoulder joint fracture.
[2021-08-12] MEDS: SODIUM CHLORIDE 0.9% 1,000 ML IV SCH ×2 (15:02→15:04)
[2021-08-12] MEDS: allopurinoL 100 MG TAB PO SCH (15:03)
[2021-08-12] MEDS: ATORVASTATIN 80 MG TAB PO SCH (15:03)
[2021-08-12] MEDS: AMIODARONE 100 MG TAB PO SCH (15:03)
[2021-08-12] MEDS: PANTOPRAZOLE 40 MG/10 ML VIAL IV SCH (15:03)
[2021-08-12 16:35] LABS: Anisocytosis Slight; HCT 31.6 % (39.0-53.0); HGB 10.3 gm/dL (13.0-17.5); Hypochromasia Slight; MCH 32.5 pg (25.0-35.0); MCHC 32.4 g/dL (31.0-37.0); MCV 100.4 fL (80.0-100.0); Macrocytosis Slight; Mean Platelet Volume 8.4; Poikilocytosis Slight; RBC 3.15 m/uL (4.30-5.90); RDW 17.3 % (11.5-15.5); WBC 7.2 k/uL (3.8-10.6)
[2021-08-12 16:37] LABS: Platelet Count 83 k/uL (150-450)
--- NOTE | 2021-08-12 16:46 | P.GSCN ---
History of Present Illness Consult date: 08/12/21 History of present illness: CHIEF COMPLAINT: Hematochezia HISTORY OF PRESENT ILLNESS: The patient is a 71-year-old male with a recent cardiac stent placement due to acute cardiac event reports more than 2 weeks history of generalized increased fatigue and intermittent bleeding from the rectum. Patient presents with symptomatic anemia and had large bloody bowel movement in the emergency room. He had been placed on anticoagulation reversal agents as well as fluids. Patient at home is on iron and anticoagulant. Hemoglobin on admission was 11.8 down from baseline 15.6. Since admission, hemoglobin dropped 2 g down to 9.4. He reports abdominal distention and low appetite with epigastric discomfort. He reports chronic bruising and bleeding from taking Eliquis. PAST MEDICAL HISTORY: See list and reviewed PAST SURGICAL HISTORY: See list and reviewed MEDICATIONS: See list and reviewed ALLERGIES: See list and reviewed SOCIAL HISTORY: See list and reviewed FAMILY HISTORY: See list and reviewed REVIEW OF ORGAN SYSTEMS: CONSTITUTIONAL: No fevers or chills. Morbid obese, BMI 35.3 EYES: Denies any trouble with vision. No glasses. HEENT: No difficulties with hearing. No nosebleeds. No difficulty swallowing. RESPIRATORY: Has shortness of breath including generalized fatigue. Has obstructive sleep apnea. CARDIOVASCULAR: Has congestive heart failure. Has atrial fibrillation. Has hyperlipidemia including hypertensive heart disease. Has a recent pacemaker placement GASTROINTESTINAL: Has iron deficiency anemia. Has gastroesophageal reflux disease. GENITOURINARY: Has chronic kidney disease. Stage III. NEUROLOGICAL: Denies any numbness or tingling along the distal extremities. No seizure disorders or headaches. MUSCULOSKELETAL: Has back pain, stiffness or joint arthritis. Has gout. Has bilateral knee amputations SKIN: No current skin cancer. No rash. PSYCHIATRIC: Denies current depression or suicidal thoughts. ENDOCRINE: Denies current thyroid disorders. Denies any blood sugar glucose intolerance. HEME/LYMPHATIC: On chronic anticoagulation. ALLERGY/IMMUNOLOGY: No immunoglobulin therapy. No immune deficiencies. BREAST: Denies current breast lumps, pain or nipple discharge. PHYSICAL EXAM: VITALS: Reviewed CONSTITUTIONAL: Well developed and in no acute distress. EYES: Conjuctivae without sclera icterus. Extraocular movements grossly intact. HEAD, EARS, NOSE, THROAT: Moist buccal mucosa. Head is atraumatic, no rmocephalic. Hears conversational speech. No nasal drainage. NECK: Supple. No JV distention. No thyroidomegaly. RESPIRATORY: Non-labored respirations and equal bilateral excursions. No gross wheezes. CARDIOVASCULAR: Palpable 2+ radial pulses. ABDOMEN: Obese. No peritonitis. Mild distention. LYMPH: No neck lymphadenopathy. MUSCULOSKELETAL: Nail and fingers with good capillary refill. SKIN: Warm and well perfused with good skin turgor. NEUROLOGIC: Cranial nerves II through XII grossly intact. No focal or lateralizing signs. PSYCH: Appropriate affect. Alert and oriented to person, place and time. CLINCAL LABS: Reviewed. Hemoglobin down from baseline 15.6-9.4. Acute drop in hemoglobin 24 hours from 11.4-9.4. Creatinine down 2.73-2.22 RECORDS: Colonoscopy in 2017 demonstrating diverticulosis. ASSESSMENT: 1. Gastrointestinal bleeding PLAN: 1. Recommend upper endoscopy for stomach ulcers 2. Hold blood thinner. 3. Diet for now 4. May benefit from colonoscopy pending stability. ADVANCE DIRECTIVE: Thank you for this kind consultation. 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 SEE DR. PAYNE'S H & P Last Myocardial Infarction Date:: 2010 History of Any Multi-Drug Resistant Organisms: None Reported Past Surgical History: Cholecystectomy, Heart Catheterization With Stent, Joint Replacement, Orthopedic Surgery, Tonsillectomy Additional Past Surgical History / Comment(s): BILAT TKA AND DANIELLE, BILAT KNEE SCOPES, COLONOSCOPIES, CARDIOVERSION 04/03/21, pacemaker placed 07/15/21 Past Anesthesia/Blood Transfusion Reactions: No Reported Reaction Date of Last Stent Placement:: 2010 Past Psychological History: No Psychological Hx Reported Smoking Status: Never smoker Past Alcohol Use History: Occasional Past Drug Use History: None Reported - Past Family History Mother Family Medical History: Cancer Additional Family Medical History / Comment(s): Mother of breast cancer at the age of 79yrs. Father Family Medical History: Coronary Artery Disease (CAD) Additional Family Medical History / Comment(s): Father had heart problems. He had coronary valve replacement. He at the age of 83 yrs. Medications and Allergies Home Medications Medication Instructions Recorded Confirmed Type ALPRAZolam [Xanax] 1 mg PO HS 04/15/15 08/11/21 History Apixaban [Eliquis] 5 mg PO BID 04/15/15 08/11/21 History Aspirin [Adult Low Dose Aspirin EC] 81 mg PO DAILY 04/09/16 08/11/21 History Latanoprost Ophth [Xalatan 0.005%] 1 drops BOTH EYES HS ml 04/13/16 08/11/21 Rx allopurinoL [Zyloprim] 100 mg PO DAILY 05/07/19 08/11/21 History Acetaminophen-Codeine 300-30mg 1 tab PO Q6H PRN 01/20/21 08/11/21 History [Tylenol w/codeine #3] Atorvastatin [Lipitor] 80 mg PO DAILY 02/20/21 08/11/21 History Pantoprazole Sodium [Protonix] 40 mg PO DAILY 02/20/21 08/11/21 History Spironolactone [Aldactone] 25 mg PO DAILY 30 Days #30 tab 02/24/21 08/11/21 Rx Furosemide [Lasix] 60 mg PO DAILY 03/30/21 08/11/21 History Metoprolol Succinate (ER) [Toprol 25 mg PO DAILY #90 tab 04/03/21 08/11/21 Rx XL] Amiodarone HCl [Pacerone] 100 mg PO DAILY 08/11/21 08/11/21 History Ferrous Sulfate [Feosol] 325 mg PO DAILY 08/11/21 08/11/21 History Menthol-Zinc Oxide Oint 1 applic TOPICAL BID PRN 08/11/21 08/11/21 History [Calmoseptine Oint] Metoclopramide [Reglan] 5 mg PO W/BRKFST 08/11/21 08/11/21 History Metoprolol Succinate [Toprol XL] 50 mg PO HS 08/11/21 08/11/21 History SILVER sulfADIAZINE CREAM 1 applic TOPICAL DAILY PRN 08/11/21 08/11/21 History [Silvadene Cream] Allergies Allergy/AdvReac Type Severity Reaction Status Date / Time No Known Allergies Allergy Verified 08/11/21 22:01 Surgical - Exam Vital Signs Temp Pulse Resp BP Pulse Ox 97.4 F L 51 L 18 118/84 100 08/11/21 19:19 08/11/21 19:19 08/11/21 19:19 08/11/21 19:19 08/11/21 19:19 Results - Labs 08/12/21 16:10 08/12/21 08:05 Abnormal Lab Results - Last 24 Hours (Table) 08/11/21 08/11/21 08/11/21 Range/Units 20:04 20:04 20:04 WBC 12.9 H (3.8-10.6) k/uL RBC 3.59 L (4.30-5.90) m/uL Hgb 11.8 L (13.0-17.5) gm/dL Hct 36.7 L (39.0-53.0) % MCV 102.3 H (80.0-100.0) fL RDW 16.5 H (11.5-15.5) % Plt Count (150-450) k/uL Neutrophils # (1.3-7.7) k/uL Neutrophils # (Manual) 11.70 H (1.3-7.7) k/uL Lymphocytes # (Manual) 0.26 L (1.0-4.8) k/uL Metamyelocytes # (Man) 0.26 H (0) k/uL Myelocytes # (Manual) 0.52 H (0) k/uL PT (9.0-12.0) sec INR (<1.2) Chloride (98-107) mmol/L BUN 73 H (9-20) mg/dL Creatinine 2.73 H (0.66-1.25) mg/dL Glucose 170 H (74-99) mg/dL Plasma Lactic Acid Tyson 4.5 H* (0.7-2.0) mmol/L Calcium (8.4-10.2) mg/dL Troponin I (0.000-0.034) ng/mL Total Protein 5.7 L (6.3-8.2) g/dL Albumin 3.4 L (3.5-5.0) g/dL Crossmatch 08/11/21 08/11/21 08/11/21 Range/Units 20:04 21:10 21:41 WBC 10.8 H (3.8-10.6) k/uL RBC 2.83 L (4.30-5.90) m/uL Hgb 9.4 L D (13.0-17.5) gm/dL Hct 28.8 L (39.0-53.0) % MCV 102.0 H (80.0-100.0) fL RDW 16.0 H (11.5-15.5) % Plt Count 106 L (150-450) k/uL Neutrophils # 8.9 H (1.3-7.7) k/uL Neutrophils # (Manual) (1.3-7.7) k/uL Lymphocytes # (Manual) (1.0-4.8) k/uL Metamyelocytes # (Man) (0) k/uL Myelocytes # (Manual) (0) k/uL PT (9.0-12.0) sec INR (<1.2) Chloride (98-107) mmol/L BUN (9-20) mg/dL Creatinine (0.66-1.25) mg/dL Glucose (74-99) mg/dL Plasma Lactic Acid Tyson (0.7-2.0) mmol/L Calcium (8.4-10.2) mg/dL Troponin I 0.044 H* (0.000-0.034) ng/mL Total Protein (6.3-8.2) g/dL Albumin (3.5-5.0) g/dL Crossmatch See Detail 08/11/21 08/12/21 08/12/21 Range/Units 21:41 00:15 05:51 WBC (3.8-10.6) k/uL RBC 2.86 L 3.20 L (4.30-5.90) m/uL Hgb 9.4 L 10.3 L (13.0-17.5) gm/dL Hct 28.8 L 31.3 L (39.0-53.0) % MCV 100.5 H (80.0-100.0) fL RDW 17.8 H 18.0 H (11.5-15.5) % Plt Count 79 L 56 L (150-450) k/uL Neutrophils # (1.3-7.7) k/uL Neutrophils # (Manual) (1.3-7.7) k/uL Lymphocytes # (Manual) 0.27 L 0.96 L (1.0-4.8) k/uL Metamyelocytes # (Man) 0.41 H 0.24 H (0) k/uL Myelocytes # (Manual) (0) k/uL PT 12.5 H (9.0-12.0) sec INR 1.2 H (<1.2) Chloride (98-107) mmol/L BUN (9-20) mg/dL Creatinine (0.66-1.25) mg/dL Glucose (74-99) mg/dL Plasma Lactic Acid Tyson (0.7-2.0) mmol/L Calcium (8.4-10.2) mg/dL Troponin I (0.000-0.034) ng/mL Total Protein (6.3-8.2) g/dL Albumin (3.5-5.0) g/dL Crossmatch 08/12/21 08/12/21 Range/Units 08:05 08:05 WBC (3.8-10.6) k/uL RBC (4.30-5.90) m/uL Hgb (13.0-17.5) gm/dL Hct (39.0-53.0) % MCV (80.0-100.0) fL RDW (11.5-15.5) % Plt Count (150-450) k/uL Neutrophils # (1.3-7.7) k/uL Neutrophils # (Manual) (1.3-7.7) k/uL Lymphocytes # (Manual) (1.0-4.8) k/uL Metamyelocytes # (Man) (0) k/uL Myelocytes # (Manual) (0) k/uL PT (9.0-12.0) sec INR (<1.2) Chloride 109 H (98-107) mmol/L BUN 65 H (9-20) mg/dL Creatinine 2.22 H (0.66-1.25) mg/dL Glucose (74-99) mg/dL Plasma Lactic Acid Tyson (0.7-2.0) mmol/L Calcium 8.0 L (8.4-10.2) mg/dL Troponin I 0.035 H* (0.000-0.034) ng/mL Total Protein (6.3-8.2) g/dL Albumin (3.5-5.0) g/dL Crossmatch Diabetes panel 08/11/21 08/12/21 Range/Units 20:04 08:05 Sodium 137 140 (137-145) mmol/L Potassium 5.0 4.1 (3.5-5.1) mmol/L Chloride 102 109 H (98-107) mmol/L Carbon Dioxide 22 27 (22-30) mmol/L BUN 73 H 65 H (9-20) mg/dL Creatinine 2.73 H 2.22 H (0.66-1.25) mg/dL Glucose 170 H 89 (74-99) mg/dL Calcium 9.0 8.0 L (8.4-10.2) mg/dL AST 34 (17-59) U/L ALT 31 (4-49) U/L Alkaline Phosphatase 53 (38-126) U/L Total Protein 5.7 L (6.3-8.2) g/dL Albumin 3.4 L (3.5-5.0) g/dL Calcium panel 08/11/21 08/11/21 08/12/21 Range/Units 20:04 21:41 08:05 Calcium 9.0 8.0 L (8.4-10.2) mg/dL Ionized Calcium Wilfredo 4.7 (4.5-5.3) mg/dL Albumin 3.4 L (3.5-5.0) g/dL Pituitary panel 08/11/21 08/12/21 Range/Units 20:04 08:05 Sodium 137 140 (137-145) mmol/L Potassium 5.0 4.1 (3.5-5.1) mmol/L Chloride 102 109 H (98-107) mmol/L Carbon Dioxide 22 27 (22-30) mmol/L BUN 73 H 65 H (9-20) mg/dL Creatinine 2.73 H 2.22 H (0.66-1.25) mg/dL Glucose 170 H 89 (74-99) mg/dL Calcium 9.0 8.0 L (8.4-10.2) mg/dL Adrenal panel 08/11/21 08/12/21 Range/Units 20:04 08:05 Sodium 137 140 (137-145) mmol/L Potassium 5.0 4.1 (3.5-5.1) mmol/L Chloride 102 109 H (98-107) mmol/L Carbon Dioxide 22 27 (22-30) mmol/L BUN 73 H 65 H (9-20) mg/dL Creatinine 2.73 H 2.22 H (0.66-1.25) mg/dL Glucose 170 H 89 (74-99) mg/dL Calcium 9.0 8.0 L (8.4-10.2) mg/dL Total Bilirubin 1.2 (0.2-1.3) mg/dL AST 34 (17-59) U/L ALT 31 (4-49) U/L Alkaline Phosphatase 53 (38-126) U/L Total Protein 5.7 L (6.3-8.2) g/dL Albumin 3.4 L (3.5-5.0) g/dL
[2021-08-12] MEDS ORDERED: METOPROLOL SUCCINATE (ER) 50 MG TAB.ER.24H PO SCH (21:00)
[2021-08-12] MEDS ORDERED: ONDANSETRON 4 MG/2 ML VIAL IVP PRN (23:00)
[2021-08-12] MEDS: HYDROcodone/APAP 5-325MG 1 EACH TAB PO PRN (23:30)
[2021-08-12] MEDS: ALPRAZolam 1 MG TAB PO SCH (23:31)
--- NOTE | 2021-08-13 00:43 | P.PN ---
Progress Note - Text Progress Note Date: 08/13/21 patient went into afib with RVR symptomatic will be initiated on amiodarone drip and bolus , no heparin secondary to GI bleeding check stat hemoglobin cardiology consult
[2021-08-13] MEDS ORDERED: DEXTROSE 5% IN WATER 100 ML with AMIODARONE 150 MG IV ONE (00:45)
[2021-08-13] MEDS ORDERED: AMIODARONE IN DEXTROSE,ISO-OSM 360 MG/200 ML PLAST..BAG IV ONE (00:48)
[2021-08-13] MEDS ORDERED: AMIODARONE IN DEXTROSE,ISO-OSM 150 MG/100 ML PLAST..BAG IV ONE (00:48)
[2021-08-13 00:50] LABS: Anisocytosis Slight; Basophils # (A) 0.1 k/uL (0-0.2); Basophils % (A) 1 %; Eosinophils # (A) 0.1 k/uL (0-0.7); Eosinophils % (A) 1 %; HCT 33.7 % (39.0-53.0); HGB 11.4 gm/dL (13.0-17.5); Hypochromasia Slight; Lymphocytes # (A) 0.6 k/uL (1.0-4.8); Lymphocytes % (A) 6 %; MCH 33.1 pg (25.0-35.0); MCHC 33.8 g/dL (31.0-37.0); Macrocytosis Slight; Mean Platelet Volume 9.2; Monocytes # (A) 0.7 k/uL (0-1.0); Monocytes % (A) 8 %; Neutrophils % (A) 83 %; Poikilocytosis Slight; RBC 3.44 m/uL (4.30-5.90); RDW 17.6 % (11.5-15.5); WBC 9.6 k/uL (3.8-10.6)
[2021-08-13 00:54] LABS: Platelet Count 84 k/uL (150-450)
[2021-08-13] MEDS ORDERED: AMIODARONE 360 MG in DEXTROSE 5% IN WATER 200 ML IV ONE ×2 (01:00)
[2021-08-13 01:24] LABS: Poikilocytosis (M) Present
[2021-08-13] MEDS ORDERED: LORazepam 1 MG TAB PO STA (02:23)
[2021-08-13] MEDS: SODIUM CHLORIDE 0.9% 1,000 ML IV SCH ×3 (02:37→20:53)
[2021-08-13] MEDS: IPRATROPIUM-ALBUTEROL 3 ML NEB INHALATION PRN (02:49)
[2021-08-13 05:24] LABS: Glucose,Whole Blood 102 mg/dL (75-99)
[2021-08-13] MEDS: AMIODARONE 450 MG in DEXTROSE 5% IN WATER 250 ML IV SCH ×2 (06:58)
[2021-08-13 07:33] LABS: Glucose,Whole Blood 124 mg/dL (75-99)
[2021-08-13] MEDS: AMIODARONE 100 MG TAB PO SCH (07:59)
[2021-08-13] MEDS: METOPROLOL TARTRATE 25 MG TAB PO SCH ×2 (08:00→21:06)
[2021-08-13] MEDS: allopurinoL 100 MG TAB PO SCH (08:00)
[2021-08-13] MEDS: PANTOPRAZOLE 40 MG/10 ML VIAL IV SCH (08:00)
[2021-08-13] MEDS: ATORVASTATIN 80 MG TAB PO SCH (08:00)
[2021-08-13 08:14] LABS: ABG Base Excess -1.6 mmol/L; ABG HCO3 23 mmol/L (21-25); ABG Oxygen Saturation 95.8 % (94-97); ABG PCO2 38 mmHg (35-45); ABG PO2 79 mmHg (83-108); ABG TCO2 24 mmol/L (19-24); Allen Test Performed? Yes
--- NOTE | 2021-08-13 08:28 | P.EN ---
A- team: Indication: v- fib Arrived on Scene to find: patient lethargic Patient seen and examined at bedside. Patient lethargic. He is alert to self and being in the hospital, not year. He is able to lift both hands off the bed. He complains of feeling tired. Vital signs reviewed General: Ill appearing, mild distress, appears at stated age, obese Derm: warm, dry multiple areas of ecchymosis Head: atraumatic, normocephalic, symmetric Eyes: EOMI, no lid lag, anicteric sclera Mouth: no lip lesion, mucus membranes moist Cardiovascular: S1S2 irreg, no murmur, positive posterior tibial pulse bilateral, Lungs: Decreased breath sounds bilateral, no rhonchi, no rales , no accessory muscle use Abdominal: soft, nontender to palpation, no guarding, no appreciable organomegaly Ext: Legs wrapped bilaterally with some serous sanguinous soaked through, 2+ edema Neuro: CN II-XI grossly intact, no focal neuro deficits Psych: lethargic, oriented X 2, Assessment: A fib wtih RVR Chronic systolic CHF with EF 30-35% in 02/11 Acute hypoxic respiratory failure Acute encephalopathy Acute symptomatic GI bleed Ecchymosis CKD HTN CAD Plan: On amio gtt Metoprolol stat CBC, BMP, Mg Stat ABD hold eliquis and metoprolol Cardiology consult pending Check echo [place] EGD per surgery, eliquis on hold. Disposition: remain on 3S Notified: cardiology, [employer] A Total of 37 minutes of critical care time was spent on the complex care of this patient.
[2021-08-13 09:15] LABS: Anisocytosis Slight; Basophils % (A) 1 %; Eosinophils % (A) 0 %; HCT 29.4 % (39.0-53.0); Hypochromasia Moderate; Lymphocytes # (A) 0.3 k/uL (1.0-4.8); Lymphocytes % (A) 3 %; MCH 31.4 pg (25.0-35.0); MCHC 31.2 g/dL (31.0-37.0); MCV 100.6 fL (80.0-100.0); Macrocytosis Moderate; Monocytes # (A) 0.6 k/uL (0-1.0); Monocytes % (A) 7 %; Neutrophils # (A) 7.4 k/uL (1.3-7.7); Neutrophils % (A) 87 %; Poikilocytosis Slight; RBC 2.92 m/uL (4.30-5.90); RDW 17.8 % (11.5-15.5); WBC 8.5 k/uL (3.8-10.6)
[2021-08-13 09:16] LABS: HGB 9.2 gm/dL (13.0-17.5); Platelet Count 81 k/uL (150-450)
[2021-08-13 09:23] LABS: Albumin 2.7 g/dL (3.5-5.0); Calcium 8.2 mg/dL (8.4-10.2); Magnesium 1.9 mg/dL (1.6-2.3); Phosphorus 3.5 mg/dL (2.5-4.5); Potassium 3.8 mmol/L (3.5-5.1); Total Bilirubin 1.7 mg/dL (0.2-1.3); Total Protein 4.9 g/dL (6.3-8.2)
--- NOTE | 2021-08-13 11:54 | P.CRDCN ---
History of Present Illness Consult date: 08/13/21 Reason for Consult (text): A. fib with RVR Consult reason: atrial fibrillation History of present illness: HISTORY OF PRESENTING ILLNESS This is a pleasant 71-year-old male past medical history significant for coronary artery disease status post stent placement to the mid and proximal circumflex, persistent atrial fibrillation on long-term anticoagulation, hypertension, dyslipidemia, chronic kidney disease, ventricular arrhythmias (PVCs and NSVT), and obstructive sleep apnea. He follows in the office with Dr. Fields, underwent biventricular pacemaker implantation 07/13/2021 for management of persistent A. fib with RVR. Patient had developed hematoma at the site which required separate wound closure and now noticed has significant ecchymosis to the area. Patient was brought into the hospital due to hematochezia status post transfusion of 2 units packed RBCs and 2 units of fresh frozen plasma on 08/11. Dr. Mccullough is planning for EGD tomorrow. Patient went into A. fib with RVR last evening and was started on amiodarone drip. This morning, 18 was called for suspected V. tach but no bedside states cardiac strips were obtained and at that time, patient was started on Lopressor 25 mg twice daily. Upon review of cardiac monitoring, it appears that patient have A. fib with RVR. We will have his pacemaker check done today. DIAGNOSTICS EKG reveals atrial fibrillation heart rate 99 Telemetry tracings indicate atrial fibrillation with rapid ventricular response HR 120-150s Chest xray reveals mild pleural reaction and atelectasis right lung base without change. No heart failure. Laboratory studies: WBC 8.5, hemoglobin 9.2, platelet count 81. BUN 55 and creatinine 1.9. Magnesium 1.7. AST 64. Troponins 0.044 and 0.035. Carotid virus PCR not detected. Current home cardiac medications include amiodarone 100 mg daily, eliquis 5 mg twice daily, Lipitor 80 mg daily, Lasix 60 mg daily, Toprol-XL 50 mg daily at bedtime and 25 mg daily in the morning, Aldactone 25 mg daily Echocardiogram revealed an EF of 30-35%, LA severely dilated, mild mitral regurgitation, mild tricuspid practitioner note mild pulmonary hypertension. REVIEW OF SYSTEMS At the time of my exam: CONSTITUTIONAL: Denies fever or chills. CARDIOVASCULAR: Denies shortness of breath, denies palpitations Denies chest pain, orthopnea, PND RESPIRATORY: Denies cough. GASTROINTESTINAL: Denies abdominal pain, diarrhea, constipation, nausea or vomiting. MUSCULOSKELETAL: Denies myalgias. NEUROLOGIC: Denies numbness, tingling, headacbe or weakness. ENDOCRINE: Denies fatigue, weight change, polydipsia or polyurina. GENITOURINARY: Denies burning, hematuria or urgency with micturation. HEMATOLOGIC: Denies history of anemia or bleeding. PHYSICAL EXAMINATION CONSTITUTIONAL: No apparent distress. HEENT: Head is normocephalic. Pupils are equal, round. Sclerae anicteric. Mucous membranes of the mouth are moist. No JVD. No carotid bruit. CHEST EXAMINATION: Lungs are clear to auscultation bilaterally. No chest wall tenderness is noted on palpation or with deep breathing. HEART EXAMINATION: Irregular rate and rhythm. S1, S2 heard. Systolic murmur noted. Significant ecchymosis to the left chest wall. ABDOMEN: Soft, nontender. Positive bowel sounds. EXTREMITIES: 2+ peripheral pulses, +Bilateral lower extremity discoloration. +Bilateral 2+ lower extremity edema, he does have some calf tenderness. NEUROLOGIC EXAMINATION: Patient is awake, alert and oriented x3. ASSESSMENT Acute GI bleed Persistent atrial fibrillation with rapid ventricular response- on oil heaterman anticoagulation Eliquis Chronic systolic heart failure Coronary artery disease status post stent placement to the mid and proximal circumflex History of hypertension Dyslipidemia Chronic kidney disease History of ventricular arrhythmias (PVCs and NSVT) Obstructive sleep apnea. PLAN Continue amiodarone drip and Lopressor 25 mg twice daily Eliquis is on hold due to GI bleed with plan for EGD tomorrow Hold Lasix, Aldactone for now as blood pressure is marginal Further recommendations based on clinical course Nurse Practitioner note has been reviewed, I agree with a documented findings and plan of care. Patient was seen and examined. 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 SEE DR. FIELDS'S H & P Last Myocardial Infarction Date:: 2010 History of Any Multi-Drug Resistant Organisms: None Reported Past Surgical History: Cholecystectomy, Heart Catheterization With Stent, Joint Replacement, Orthopedic Surgery, Tonsillectomy Additional Past Surgical History / Comment(s): BILAT TKA AND DANIELLE, BILAT KNEE SCOPES, COLONOSCOPIES, CARDIOVERSION 04/03/21, pacemaker placed 07/15/21 Past Anesthesia/Blood Transfusion Reactions: No Reported Reaction Date of Last Stent Placement:: 2010 Past Psychological History: No Psychological Hx Reported Smoking Status: Never smoker Past Alcohol Use History: Occasional Past Drug Use History: None Reported - Past Family History Mother Family Medical History: Cancer Additional Family Medical History / Comment(s): Mother of breast cancer at the age of 79yrs. Father Family Medical History: Coronary Artery Disease (CAD) Additional Family Medical History / Comment(s): Father had heart problems. He had coronary valve replacement. He at the age of 83 yrs. Medications and Allergies Home Medications Medication Instructions Recorded Confirmed Type ALPRAZolam [Xanax] 1 mg PO HS 04/15/15 08/11/21 History Apixaban [Eliquis] 5 mg PO BID 04/15/15 08/11/21 History Aspirin [Adult Low Dose Aspirin EC] 81 mg PO DAILY 04/09/16 08/11/21 History Latanoprost Ophth [Xalatan 0.005%] 1 drops BOTH EYES HS ml 04/13/16 08/11/21 Rx allopurinoL [Zyloprim] 100 mg PO DAILY 05/07/19 08/11/21 History Acetaminophen-Codeine 300-30mg 1 tab PO Q6H PRN 01/20/21 08/11/21 History [Tylenol w/codeine #3] Atorvastatin [Lipitor] 80 mg PO DAILY 02/20/21 08/11/21 History Pantoprazole Sodium [Protonix] 40 mg PO DAILY 02/20/21 08/11/21 History Spironolactone [Aldactone] 25 mg PO DAILY 30 Days #30 tab 02/24/21 08/11/21 Rx Furosemide [Lasix] 60 mg PO DAILY 03/30/21 08/11/21 History Metoprolol Succinate (ER) [Toprol 25 mg PO DAILY #90 tab 04/03/21 08/11/21 Rx XL] Amiodarone HCl [Pacerone] 100 mg PO DAILY 08/11/21 08/11/21 History Ferrous Sulfate [Feosol] 325 mg PO DAILY 08/11/21 08/11/21 History Menthol-Zinc Oxide Oint 1 applic TOPICAL BID PRN 08/11/21 08/11/21 History [Calmoseptine Oint] Metoclopramide [Reglan] 5 mg PO W/BRKFST 08/11/21 08/11/21 History Metoprolol Succinate [Toprol XL] 50 mg PO HS 08/11/21 08/11/21 History SILVER sulfADIAZINE CREAM 1 applic TOPICAL DAILY PRN 08/11/21 08/11/21 History [Silvadene Cream] Allergies Allergy/AdvReac Type Severity Reaction Status Date / Time No Known Allergies Allergy Verified 08/11/21 22:01 Physical Exam Vitals: Vital Signs Temp Pulse Pulse Resp BP BP Pulse Ox 08/13/21 04:00 135 H 18 96/62 96 08/13/21 02:59 136 H 08/13/21 02:49 133 H 08/13/21 00:00 90 18 112/65 96 08/12/21 20:00 98.2 F 98 18 127/58 97 08/12/21 16:00 97.9 F 73 18 97/60 08/12/21 10:45 98.4 F 74 18 96/62 100 Intake and Output 08/12/21 08/13/21 08/13/21 22:59 06:59 14:59 Intake Total 874 Output Total 1000 500 Balance -126 -500 Intake: Blood Product 874 Ffp 24 Cpd Unit 313 [id number] Rc Pheresis 2 As3 Unit 280 [id number] Rc Pheresis 2 As3 Unit 281 [id number] Output: Urine 1000 500 Other: Voiding Method Indwelling Catheter Indwelling Catheter Results 08/13/21 08:44 08/13/21 08:44 Cardiac Enzymes 08/12/21 Range/Units 08:05 Troponin I 0.035 H* (0.000-0.034) ng/mL Coagulation 08/12/21 Range/Units 08:05 PT 11.4 (9.0-12.0) sec CBC 08/12/21 08/13/21 Range/Units 16:10 00:33 WBC 7.2 9.6 (3.8-10.6) k/uL RBC 3.15 L 3.44 L (4.30-5.90) m/uL Hgb 10.3 L 11.4 L (13.0-17.5) gm/dL Hct 31.6 L 33.7 L (39.0-53.0) % Plt Count 83 L 84 L (150-450) k/uL Comprehensive Metabolic Panel 08/12/21 Range/Units 08:05 Sodium 140 (137-145) mmol/L Potassium 4.1 (3.5-5.1) mmol/L Chloride 109 H (98-107) mmol/L Carbon Dioxide 27 (22-30) mmol/L BUN 65 H (9-20) mg/dL Creatinine 2.22 H (0.66-1.25) mg/dL Glucose 89 (74-99) mg/dL Calcium 8.0 L (8.4-10.2) mg/dL Current Medications Generic Name Dose Route Start Last Admin Trade Name Freq PRN Reason Stop Dose Admin Hydrocodone Bitart/Acetaminophen 1 each 08/12/21 23:00 08/12/21 23:30 Hydrocodone/Apap 5-325mg 1 Each Tab PO 1 each Q4HR PRN Administration Pain Albuterol/Ipratropium 3 ml 08/13/21 02:23 08/13/21 02:49 Ipratropium-Albuterol 3 Ml Neb INHALATION 3 ml RT-QID PRN Administration Shortness Of Breath Or Wheezing Allopurinol 100 mg 08/12/21 09:00 08/13/21 08:00 Allopurinol 100 Mg Tab PO 100 mg DAILY ASHLEY Administration Alprazolam 1 mg 08/12/21 21:00 08/12/21 23:31 Alprazolam 1 Mg Tab PO 1 mg HS ASHLEY Administration Amiodarone HCl 100 mg 08/12/21 09:00 08/13/21 07:59 Amiodarone 100 Mg Tab PO Not Given DAILY ASHLEY Atorvastatin Calcium 80 mg 08/12/21 09:00 08/13/21 08:00 Atorvastatin 80 Mg Tab PO 80 mg DAILY ASHLEY Administration Sodium Chloride 1,000 mls @ 100 mls/hr 08/11/21 22:15 08/13/21 08:01 Saline 0.9% IV 100 mls/hr .Q10H ASHLEY Administration Amiodarone HCl 450 mg/ 250 mls @ 16.667 mls/hr 08/13/21 07:00 08/13/21 06:58 Dextrose/Water IV 08/14/21 00:59 0.5 mg/min .Q15H ASHLEY 16.667 mls/hr Administration Protocol 0.5 MG/MIN Metoprolol Tartrate 25 mg 08/13/21 09:00 08/13/21 08:00 Metoprolol Tartrate 25 Mg Tab PO 25 mg BID ASHLEY Administration Naloxone HCl 0.2 mg 08/11/21 22:05 Naloxone 0.4 Mg/Ml 1 Ml Vial IV Q2M PRN Opioid Reversal Ondansetron HCl 4 mg 08/12/21 23:00 08/12/21 23:31 Ondansetron 4 Mg/2 Ml Vial IVP 4 mg Q6HR PRN Administration Nausea And Vomiting Pantoprazole Sodium 40 mg 08/12/21 09:00 08/13/21 08:00 Pantoprazole 40 Mg/10 Ml Vial IV 40 mg DAILY ASHLEY Administration Intake and Output 08/12/21 08/13/21 08/13/21 22:59 06:59 14:59 Intake Total 874 Output Total 1000 500 Balance -126 -500 Intake: Blood Product 874 Ffp 24 Cpd Unit 313 [id number] Rc Pheresis 2 As3 Unit 280 [id number] Rc Pheresis 2 As3 Unit 281 [id number] Output: Urine 1000 500 Other: Voiding Method Indwelling Catheter Indwelling Catheter 08/13/21 00:33 08/12/21 08:05
[2021-08-13] MEDS ORDERED: Magnesium Replacement Protocol 1 EACH MISC MISCELLANE PRN (12:39)
[2021-08-13] MEDS: MAGNESIUM SULFATE-D5W PMX 1 GM in DEXTROSE/WATER 1 100ML.BAG IVPB SCH ×2 (14:53→16:48)
--- NOTE | 2021-08-13 16:38 | P.PN ---
Subjective Progress Note Date: 08/13/21 CHIEF COMPLAINT: Hematochezia HISTORY OF PRESENT ILLNESS: The patient is a 71-year-old male status post pacemaker implantation over 2 weeks ago. He has been on blood thinners and has generalized malaise. He was admitted due to acute large GI bleed with moderate drop in Hgb from 15.6 baseline down to 9.4 today. He had a cardiac event this morning as well with atrial fibrillation. At the time of my evaluation, he reports frustation and not feeling well. He denies any further bloody bowel movements today REVIEW OF ORGAN SYSTEMS: Had chest pain. No fevers or chills. PHYSICAL EXAM: VITALS: Reviewed CONSTITUTIONAL: Well developed and in no acute distress. EYES: Conjuctivae without sclera icterus. Extraocular movements grossly intact. HEAD, EARS, NOSE, THROAT: Moist buccal mucosa. Head is atraumatic, normocephalic. Hears conversational speech. No nasal drainage. NECK: Supple. No JV distention. No thyroidomegaly. RESPIRATORY: Non-labored respirations and equal bilateral excursions. CARDIOVASCULAR: 2+ radial pulses. ABDOMEN: Obese. No peritonitis. MUSCULOSKELETAL: No clubbing or cyanosis. SKIN: Moderate edema of the lower legs with serous drainage. NEUROLOGIC: Cranial nerves II through XII grossly intact. No focal or lateralizing signs. PSYCH: Appropriate affect. Alert and oriented to person, place and time. CLINCAL LABS: Reviewed. Hemoglobin down from baseline 15.6-9.4, now 9.2 ASSESSMENT: 1. Gastrointestinal bleeding PLAN: 1. Hold blood thinners. 2. Heart healthy diet for now. NPO after midnight for EGD Objective - Vital Signs Vital signs: Vital Signs Temp 98.2 F 08/12/21 20:00 Pulse 135 H 08/13/21 04:00 Resp 18 08/13/21 04:00 BP 96/62 08/13/21 04:00 Pulse Ox 96 08/13/21 04:00 Intake & Output 08/12/21 08/13/21 08/13/21 18:59 06:59 18:59 Intake Total 281 874 0 Output Total 1250 500 Balance -969 374 0 Intake: Oral 0 Blood Product 281 874 Ffp 24 Cpd Unit 313 [id number] Ffp 24 Cpd Unit 281 [id number] Rc Pheresis 2 As3 Unit 280 [id number] Rc Pheresis 2 As3 Unit 281 [id number] Output: Urine 1250 500 Uretheral (Pat) 250 Other: Voiding Method Indwelling Catheter Indwelling Catheter # Voids 1 - Labs CBC & Chem 7: 08/13/21 08:44 08/13/21 08:44 Labs: Abnormal Lab Results - Last 24 Hours (Table) 08/11/21 08/12/21 08/13/21 Range/Units 21:10 16:10 00:33 RBC 3.15 L 3.44 L (4.30-5.90) m/uL Hgb 10.3 L 11.4 L (13.0-17.5) gm/dL Hct 31.6 L 33.7 L (39.0-53.0) % MCV 100.4 H (80.0-100.0) fL RDW 17.3 H 17.6 H (11.5-15.5) % Plt Count 83 L 84 L (150-450) k/uL Neutrophils # 8.0 H (1.3-7.7) k/uL Lymphocytes # 0.6 L (1.0-4.8) k/uL ABG pO2 (83-108) mmHg Chloride (98-107) mmol/L BUN (9-20) mg/dL Creatinine (0.66-1.25) mg/dL POC Glucose (mg/dL) (75-99) mg/dL Calcium (8.4-10.2) mg/dL Total Bilirubin (0.2-1.3) mg/dL AST (17-59) U/L Total Protein (6.3-8.2) g/dL Albumin (3.5-5.0) g/dL Crossmatch See Detail 08/13/21 08/13/21 08/13/21 Range/Units 05:03 07:32 08:09 RBC (4.30-5.90) m/uL Hgb (13.0-17.5) gm/dL Hct (39.0-53.0) % MCV (80.0-100.0) fL RDW (11.5-15.5) % Plt Count (150-450) k/uL Neutrophils # (1.3-7.7) k/uL Lymphocytes # (1.0-4.8) k/uL ABG pO2 79 L (83-108) mmHg Chloride (98-107) mmol/L BUN (9-20) mg/dL Creatinine (0.66-1.25) mg/dL POC Glucose (mg/dL) 102 H 124 H (75-99) mg/dL Calcium (8.4-10.2) mg/dL Total Bilirubin (0.2-1.3) mg/dL AST (17-59) U/L Total Protein (6.3-8.2) g/dL Albumin (3.5-5.0) g/dL Crossmatch 08/13/21 08/13/21 Range/Units 08:44 08:44 RBC 2.92 L (4.30-5.90) m/uL Hgb 9.2 L D (13.0-17.5) gm/dL Hct 29.4 L (39.0-53.0) % MCV 100.6 H (80.0-100.0) fL RDW 17.8 H (11.5-15.5) % Plt Count 81 L (150-450) k/uL Neutrophils # (1.3-7.7) k/uL Lymphocytes # 0.3 L (1.0-4.8) k/uL ABG pO2 (83-108) mmHg Chloride 111 H (98-107) mmol/L BUN 55 H (9-20) mg/dL Creatinine 1.90 H (0.66-1.25) mg/dL POC Glucose (mg/dL) (75-99) mg/dL Calcium 8.2 L (8.4-10.2) mg/dL Total Bilirubin 1.7 H (0.2-1.3) mg/dL AST 64 H (17-59) U/L Total Protein 4.9 L (6.3-8.2) g/dL Albumin 2.7 L (3.5-5.0) g/dL Crossmatch Assessment and Plan (1) Morbid (severe) obesity due to excess calories Current Visit: Yes Status: Acute Code(s): E66.01 - MORBID (SEVERE) OBESITY DUE TO EXCESS CALORIES SNOMED Code(s): 948698660 (2) BMI 35.0-35.9,adult Current Visit: Yes Status: Acute Code(s): Z68.35 - BODY MASS INDEX [BMI] 35 .0-35.9, ADULT SNOMED Code(s): 162432850 (3) Pacemaker complications Current Visit: Yes Status: Acute Code(s): T82.9XXA - UNSP COMP OF CARDIAC AND VASCULAR PROSTH DEV/GRFT, INIT SNOMED Code(s): 120148442 (4) Atrial fibrillation Current Visit: Yes Status: Acute Code(s): I48.91 - UNSPECIFIED ATRIAL FIBRILLATION SNOMED Code(s): 83489931 (5) GI bleed Current Visit: Yes Status: Acute Code(s): K92.2 - GASTROINTESTINAL HEMORRHAGE, UNSPECIFIED SNOMED Code(s): 84641618 (6) Hematochezia Current Visit: Yes Status: Acute Code(s): K92.1 - MELENA SNOMED Code(s): 653565061 (7) Hypotension Current Visit: Yes Status: Acute Code(s): I95.9 - HYPOTENSION, UNSPECIFIED SNOMED Code(s): 51194181 (8) Melena Current Visit: Yes Status: Acute Code(s): K92.1 - MELENA SNOMED Code(s): 5308284 (9) Rapid atrial fibrillation Current Visit: No Status: Acute Code(s): I48.91 - UNSPECIFIED ATRIAL FIBRILLATION SNOMED Code(s): 416020422
--- NOTE | 2021-08-13 17:47 | P.PN ---
Subjective Progress Note Date: 08/13/21 Hospital course: Patient is a very pleasant 70-year-old male with a past medical history CAD status post stents and recent biventricular pacemaker placement on 07/13/21, atrial fibrillation on ELiquis, hypertension, hyperlipidemia, obstructive sleep apnea BiPAP dependent, chronic kidney disease, GERD, and gout. He presented to the hospital on 08/11/21 with a chief complaint of recurrent episodes of GI bleeding and syncopal episodes. Patient was admitted under our services with consultation to pulmonology, cardiology, and general surgery. Physical exam: Patient seen and fully evaluated at bedside status post response called earlier this morning. Patient is doing well and denies having any complaints. He reports feeling weak and tired but otherwise denies having any headache, lightheadedness, dizziness, chest pain, shortness of breath, or abdominal pain. Pat catheter in place. RN denies any further episodes of hematochezia/melena at this time. Labs from previous rapid response reviewed. Hemoglobin stable at 9.2 and we will continue to monitor closely. General: non toxic, no distress, appears at stated age Derm: warm, dry. Significant bruising midsternal chest, epigastric region, left anterior chest, left flank, bilateral upper and lower extremities. Head: atraumatic, normocephalic, symmetric Eyes: EOMI, no lid lag, anicteric sclera Mouth: no lip lesion, mucus membranes moist Cardiovascular: S1S2 reg, systolic murmur, positive posterior tibial pulse bi lateral, Lungs: CTA bilateral, no rhonchi, no rales , no accessory muscle use Abdominal: soft, nontender to palpation, no guarding, no appreciable organomegaly Ext: no gross muscle atrophy, no edema, no contractures Neuro: CN II-XI grossly intact, no focal neuro deficits Psych: Alert, oriented, appropriate affect Assessment and plan of care: Acute GI bleeding Acute symptomatic anemia secondary to GI bleeding Monitor hemoglobin Blood transfusion, fresh frozen plasma transfusion Hold Eliquis Patient given kcentra and tranexamic surgery consultation Fall precautions Gen. surgery consultation Reports colonoscopy 2 years ago is unremarkable Chronic conditions: Bilateral skin changes of the legs due to venous stasis ulcers Paroxysmal A. fib status post pacemaker on Eliquis CKD Hypertension History of CAD status post stents 10 years ago Resume home medications Hold ASPIRIN and Eliquis CODE STATUS full code DVT prophylaxis: SCDs GI prophylaxis: Protonix Discussed with: Patient and RN Anticipated discharge date: Clinical course to determine Anticipated discharge place: Home A total of 30 minutes was spent on the care of this complex patient more than 50% of the time was spent in counseling and care coordination. Objective - Vital Signs Vital signs: Vital Signs Temp 98.2 F 08/12/21 20:00 Pulse 135 H 08/13/21 04:00 Resp 18 08/13/21 04:00 BP 96/62 08/13/21 04:00 Pulse Ox 96 08/13/21 04:00 Intake & Output 08/12/21 08/13/21 08/13/21 18:59 06:59 18:59 Intake Total 281 874 Output Total 1250 500 Balance -969 374 Intake: Blood Product 281 874 Ffp 24 Cpd Unit 313 [id number] Ffp 24 Cpd Unit 281 [id number] Rc Pheresis 2 As3 Unit 280 [id number] Rc Pheresis 2 As3 Unit 281 [id number] Output: Urine 1250 500 Uretheral (Pat) 250 Other: Voiding Method Indwelling Catheter Indwelling Catheter # Voids 1 - Labs CBC & Chem 7: 08/13/21 08:44 08/13/21 08:44 Labs: Abnormal Lab Results - Last 24 Hours (Table) 08/11/21 08/12/21 08/13/21 Range/Units 21:10 16:10 00:33 RBC 3.15 L 3.44 L (4.30-5.90) m/uL Hgb 10.3 L 11.4 L (13.0-17.5) gm/dL Hct 31.6 L 33.7 L (39.0-53.0) % MCV 100.4 H (80.0-100.0) fL RDW 17.3 H 17.6 H (11.5-15.5) % Plt Count 83 L 84 L (150-450) k/uL Neutrophils # 8.0 H (1.3-7.7) k/uL Lymphocytes # 0.6 L (1.0-4.8) k/uL ABG pO2 (83-108) mmHg POC Glucose (mg/dL) (75-99) mg/dL Crossmatch See Detail 02/20/22 02/20/22 02/20/22 Range/Units 05:03 07:32 08:09 RBC (4.30-5.90) m/uL Hgb (13.0-17.5) gm/dL Hct (39.0-53.0) % MCV (80.0-100.0) fL RDW (11.5-15.5) % Plt Count (150-450) k/uL Neutrophils # (1.3-7.7) k/uL Lymphocytes # (1.0-4.8) k/uL ABG pO2 79 L (83-108) mmHg POC Glucose (mg/dL) 102 H 124 H (75-99) mg/dL Crossmatch
[2021-08-13] MEDS: ALPRAZolam 1 MG TAB PO SCH (21:06)
[2021-08-14] MEDS: AMIODARONE 450 MG in DEXTROSE 5% IN WATER 250 ML IV SCH ×2 (00:46)
[2021-08-14] MEDS: AMIODARONE 200 MG TAB PO SCH ×4 (00:58→21:13)
[2021-08-14] MEDS: SODIUM CHLORIDE 0.9% 1,000 ML IV SCH ×3 (00:58→16:07)
[2021-08-14] MEDS: HYDROcodone/APAP 5-325MG 1 EACH TAB PO PRN ×4 (01:02→20:16)
[2021-08-14 08:09] LABS: Anisocytosis Slight; HGB 9.9 gm/dL (13.0-17.5); Hypochromasia Marked; MCH 31.2 pg (25.0-35.0); MCHC 29.9 g/dL (31.0-37.0); MCV 104.5 fL (80.0-100.0); Macrocytosis Moderate; Mean Platelet Volume 7.7; Platelet Count 105 k/uL (150-450); RBC 3.16 m/uL (4.30-5.90); RDW 17.5 % (11.5-15.5); WBC 8.6 k/uL (3.8-10.6)
[2021-08-14 08:22] LABS: Calcium 8.7 mg/dL (8.4-10.2); Magnesium 2.6 mg/dL (1.6-2.3); Potassium 3.9 mmol/L (3.5-5.1); Total Bilirubin 1.7 mg/dL (0.2-1.3); Total Protein 5.6 g/dL (6.3-8.2)
[2021-08-14] MEDS: ATORVASTATIN 80 MG TAB PO SCH (08:32)
[2021-08-14] MEDS: METOPROLOL TARTRATE 25 MG TAB PO SCH ×2 (08:32→20:16)
[2021-08-14] MEDS: PANTOPRAZOLE 40 MG/10 ML VIAL IV SCH (08:32)
[2021-08-14] MEDS: allopurinoL 100 MG TAB PO SCH (08:32)
[2021-08-14] MEDS ORDERED: KETAMINE 10 MG/ML 20 ML VIAL ONE (10:46)
[2021-08-14] MEDS ORDERED: PROPOFOL 10 MG/ML 20 ML VIAL IV ONE (10:46)
[2021-08-14] MEDS ORDERED: IV FLUID CONTINUATION 1,000 ML IV ONE ×2 (10:46)
--- NOTE | 2021-08-14 11:20 | P.PCN ---
Date of Procedure: 08/14/21 Description of Procedure: PREOPERATIVE DIAGNOSIS: Acute gastrointestinal bleeding Positive stool occult blood Anticoagulant use POSTOPERATIVE DIAGNOSIS: Gastroesophageal reflux disease Diaphragmatic hiatal hernia Martinez's esophagus OPERATION: Esophagogastroduodenoscopy SURGEON: Theresa cMcullough MD ANESTHESIA: MAC. INDICATIONS: The patient is a 71-year-old male who presents with gastrointestinal bleeding. Benefits and risks of the procedure were described. Informed consent was obtained. DESCRIPTION: The patient was brought into the endoscopy suite and laid in the left lateral decubitus position. An Olympus gastroscope was passed along the posterior oropharynx down to the distal esophagus where the squamocolumnar junction was encountered at 40 cm from the incisors. The stomach was entered and no bile reflux was found. Additional findings are listed below. Biopsies with cold forceps were obtained of the antrum. The first through third portion of the duodenum was examined and unremarkable. Retroflexion of the scope confirmed Hill grade 2 lower esophageal valve. The squamocolumnar junction demonstrated LA grade D erosive esophagitis. The stomach was desufflated. The patient tolerated the procedure well. FINDINGS: Squamocolumnar junction 40 cm from the incisors. Diaphragmatic hiatus at 43 cm. Hiatal hernia, 3 cm Hill grade 2 lower esophageal valve. LA grade D erosive esophagitis. No active duodenitis. No stigmata of bleeding No duodenal ulcer Gastric ulcer RECOMMENDATIONS: 1. Recommend proceed with lower endoscopy for gastrointestinal bleeding 2. Heart healthy diet today.
[2021-08-14 11:53] LABS: Glucose,Whole Blood 86 mg/dL (75-99)
--- NOTE | 2021-08-14 12:41 | ECHOF ---
Referral Reason:LV function MEASUREMENTS -------- HEIGHT: 182.9 cm WEIGHT: 117.9 kg BP: 120/73 RVIDd: 3.9 cm (< 3.3) IVSd: 1.4 cm (0.6 - 1.1) LVIDd: 4.0 cm (3.9 - 5.3) LVPWd: 1.3 cm (0.6 - 1.1) IVSs: 2.5 cm LVIDs: 3.0 cm LVPWs: 2.0 cm LA Diam: 4.3 cm (2.7 - 3.8) LAESV Index (A-L): 45.18 ml/m Ao Diam: 4.1 cm (2.0 - 3.7) AV Cusp: 2.1 cm (1.5 - 2.6) MV EXCURSION: 22.646 mm (> 18.000) MV EF SLOPE: 143 mm/s (70 - 150) EPSS: 1.1 cm AR PHT: 778 ms RAP: 5.00 mmHg RVSP: 48.80 mmHg FINDINGS -------- Atrial fibrillation. This was a technically difficult study with suboptimal views. The left ventricular size is normal. There is moderate concentric left ventricular hypertrophy. O verall left ventricular systolic function is mild-moderately impaired with, an EF between 40 - 45 %. The right ventricle is moderately enlarged. LA is severely dilated >40 ml/m2 The right atrial size is normal. 3 ml of Lumason was utilized for enhancement of images. There is mild aortic valve sclerosis. There is mild aortic regurgitation. Mild mitral annular calcification present. Mild mitral regurgitation is present. The tricuspid valve appears structurally normal. Mild tricuspid regurgitation present. There is m oderate pulmonary hypertension. The right ventricular systolic pressure, as measured by Doppler, is 48.80mmHg. Trace/mild (physiologic) pulmonic regurgitation. The aortic root is mildy dilated. IVC Not well visulized. There is no pericardial effusion. CONCLUSIONS -------- 1. This was a technically difficult study with suboptimal views. 2. There is moderate concentric left ventricular hypertrophy. 3. Overall left ventricular systolic function is mild-moderately impaired with, an EF between 40 - 45 %. 4. The right ventricle is moderately enlarged. 5. LA is severely dilated >40 ml/m2 6. 3 ml of Lumason was utilized for enhancement of images. 7. There is mild aortic valve sclerosis. 8. There is mild aortic regurgitation. 9. Mild mitral annular calcification present. 10. Mild mitral regurgitation is present. 11. Mild tricuspid regurgitation present. 12. There is moderate pulmonary hypertension. 13. Trace/mild (physiologic) pulmonic regurgitation. 14. The aortic root is mildy dilated. 15. There is no pericardial effusion. SHUTTLECOCK FEATHER TRIMMER: Samantha Jacinto RDCS
--- NOTE | 2021-08-14 13:50 | P.PN ---
Subjective Progress Note Date: 08/14/21 Pt is c/o shaking, chills, and leg pain today. Pain is located on the dorsal aspect of left foot, and is tender to touch, erythema, with warmth to touch as well. Underwent EGD today which did not identify source of bleed, pt now prepping for colonoscopy. Objective - Vital Signs Vital signs: Vital Signs Temp 96.2 F L 08/14/21 00:00 Pulse 110 H 08/14/21 11:30 Resp 18 08/14/21 08:00 BP 92/50 08/14/21 11:30 Pulse Ox 98 08/14/21 11:30 Intake & Output 08/13/21 08/14/21 08/14/21 18:59 06:59 18:59 Intake Total 0 240 200 Output Total 725 200 Balance 0 -485 0 Intake: IV 200 Oral 0 240 Output: Urine 725 200 Other: Voiding Method Indwelling Catheter Indwelling Catheter # Voids 0 # Bowel Movements 0 1 - Exam Gen: awake, alert HEENT: normocephalic, atraumatic, good hearing acuity, moist mucous membranes Resp: good air exchange, breathing comfortably with no accessory muscle use CVS: good distal perfusion x 4, RRR, no murmurs GI: soft, NTTP, ND : no SPT, no CVAT, esquivel catheter not present MSK: +pitting edema, no clubbing Neuro: non-focal, moving all extremities Psych: cooperative, euthymic mood - Labs CBC & Chem 7: 08/14/21 07:34 08/14/21 07:34 Labs: Abnormal Lab Results - Last 24 Hours (Table) 08/14/21 08/14/21 Range/Units 07:34 07:34 RBC 3.16 L (4.30-5.90) m/uL Hgb 9.9 L (13.0-17.5) gm/dL Hct 33.0 L (39.0-53.0) % MCV 104.5 H (80.0-100.0) fL MCHC 29.9 L (31.0-37.0) g/dL RDW 17.5 H (11.5-15.5) % Plt Count 105 L (150-450) k/uL Chloride 114 H (98-107) mmol/L BUN 45 H (9-20) mg/dL Creatinine 1.64 H (0.66-1.25) mg/dL Magnesium 2.6 H (1.6-2.3) mg/dL Total Bilirubin 1.7 H (0.2-1.3) mg/dL Total Protein 5.6 L (6.3-8.2) g/dL Albumin 3.0 L (3.5-5.0) g/dL Assessment and Plan Assessment: Acute GI bleeding Acute symptomatic anemia secondary to GI bleeding Monitor hemoglobin Blood transfusion, fresh frozen plasma transfusion Hold Eliquis Patient given kcentra and tranexamic surgery consultation Fall precautions Gen. surgery consultation, pending colonoscopy EGD did not identify source of bleed, no gastritis. Reports colonoscopy 2 years ago is unremarkable Bilateral skin changes of the legs due to venous stasis ulcers Paroxysmal A. fib status post pacemaker on Eliquis CK D Hypertension History of CAD status post stents 10 years ago Resume home medications Hold ASPIRIN and Eliquis LE duplex of left leg, pending Full code DVT prophylaxis mechanical GI prophylaxis Protonix Anticipated length of stay more than 2 midnights
--- NOTE | 2021-08-14 14:39 | PN ---
PROGRESS NOTE This patient has a history of atrial fibrillation, but he has come in with a GI bleed. He was on 5 mg b.i.d. of Eliquis. However, in view of his significant GI bleed and a drop in hemoglobin, he is having endoscopy today. We will hold his anticoagulation. He remains in atrial fibrillation. The rate is variable, between 90 and 100, and based on clinical course we will make further recommendations and await the results of his EGD. This patient has history of CAD, prior stenting of mid and proximal circumflex. He has chronic persistent atrial fibrillation and also sleep apnea syndrome. He is resting comfortably without symptoms. We will continue current medications, hold anticoagulation. Await the results of endoscopy. Physical exam revealed JVD of 1 cm. No carotid bruit. S1-S2 heard normally with an irregular rhythm and a short systolic murmur. Lungs revealed diminished air entry. Abdomen is soft. Lower extremities reveal bilateral diminished pulses with some mild to moderate edema. RECOMMENDATIONS: Hold anticoagulation and await results of endoscopy and results of echocardiogram. MMODL / IJN: [id number] /
--- NOTE | 2021-08-14 15:53 | US ---
EXAMINATION TYPE: US venous doppler duplex LE LT DATE OF EXAM: 08/14/2021 2:55 PM COMPARISON: NONE CLINICAL HISTORY: r/o DVT. Left leg pain, swelling and bruising SIDE PERFORMED: Left TECHNIQUE: The lower extremity deep venous system is examined utilizing real time linear array sonog [place] with graded compression, doppler sonography and color-flow sonography. VESSELS IMAGED: Common Femoral Vein Deep Femoral Vein Greater Saphenous Vein * Femoral Vein Popliteal Vein Small Saphenous Vein * Proximal Calf Veins (* superficial vessels) Left Leg: No DVT seen at this time. IMPRESSION: 1. Left lower extremity ultrasound negative for deep venous thrombosis.
[2021-08-14] MEDS: IPRATROPIUM-ALBUTEROL 3 ML NEB INHALATION PRN (17:04)
[2021-08-14 17:13] LABS: Glucose,Whole Blood >600 mg/dL (75-99)
[2021-08-14 17:13] LABS: Glucose,Whole Blood 141 mg/dL (75-99)
[2021-08-14] MEDS: ALPRAZolam 1 MG TAB PO SCH (20:16)
[2021-08-15] MEDS: HYDROcodone/APAP 5-325MG 1 EACH TAB PO PRN ×4 (06:41→23:39)
[2021-08-15] MEDS: SODIUM CHLORIDE 0.9% 1,000 ML IV SCH ×2 (06:45→12:20)
[2021-08-15] MEDS ORDERED: POLYETHYLENE GLYCOL LYTES SOLN 4,000 ML SOLN.RECON PO ONE (08:00)
[2021-08-15] MEDS: AMIODARONE 200 MG TAB PO SCH ×3 (08:42→21:38)
[2021-08-15] MEDS: METOPROLOL TARTRATE 25 MG TAB PO SCH ×2 (08:42→20:13)
[2021-08-15] MEDS: allopurinoL 100 MG TAB PO SCH (08:42)
[2021-08-15] MEDS: ATORVASTATIN 80 MG TAB PO SCH (08:42)
[2021-08-15] MEDS: PANTOPRAZOLE 40 MG/10 ML VIAL IV SCH (08:42)
[2021-08-15 09:31] LABS: Anisocytosis Slight; Basophils % (A) 0 %; Eosinophils % (A) 1 %; HCT 28.8 % (39.0-53.0); HGB 8.9 gm/dL (13.0-17.5); Hypochromasia Marked; Lymphocytes # (A) 0.4 k/uL (1.0-4.8); Lymphocytes % (A) 8 %; MCH 32.4 pg (25.0-35.0); MCHC 30.9 g/dL (31.0-37.0); MCV 104.7 fL (80.0-100.0); Macrocytosis Moderate; Mean Platelet Volume 8.2; Monocytes # (A) 0.3 k/uL (0-1.0); Monocytes % (A) 6 %; Neutrophils # (A) 4.3 k/uL (1.3-7.7); Neutrophils % (A) 84 %; RBC 2.75 m/uL (4.30-5.90); WBC 5.1 k/uL (3.8-10.6)
[2021-08-15 10:18] LABS: Calcium 8.1 mg/dL (8.4-10.2); Magnesium 2.3 mg/dL (1.6-2.3); Potassium 4.1 mmol/L (3.5-5.1)
--- NOTE | 2021-08-15 10:36 | P.PN ---
Subjective Progress Note Date: 08/15/21 Pt appears improved from yesterday, no shakes, pain better controlled. Left foot appears redder and hotter than right on dorsal aspect, pt still reporting pain and throbbing there. No fevers. US LE Duplex was neg for DVT. Pt to start prepping for colonoscopy today. Objective - Vital Signs Vital signs: Vital Signs Temp 97.5 F L 08/15/21 04:00 Pulse 89 08/15/21 04:00 Resp 18 08/15/21 04:00 BP 101/47 08/15/21 04:00 Pulse Ox 98 08/15/21 07:33 Intake & Output 08/14/21 08/15/21 08/15/21 18:59 06:59 18:59 Intake Total 380 240 Output Total 200 Balance 180 240 Intake: IV 200 Oral 180 240 Output: Urine 200 Other: Voiding Method Urinal # Voids 1 - Exam Gen: awake, alert HEENT: normocephalic, atraumatic, good hearing acuity, moist mucous membranes Resp: good air exchange, breathing comfortably with no accessory muscle use CVS: good distal perfusion x 4, RRR, no murmurs GI: soft, NTTP, ND : no SPT, no CVAT, esquivel catheter not present MSK: +pitting edema, no clubbing Neuro: non-focal, moving all extremities Psych: cooperative, euthymic mood - Labs CBC & Chem 7: 08/15/21 08:51 08/15/21 08:51 Labs: Abnormal Lab Results - Last 24 Hours (Table) 08/11/21 08/14/21 08/14/21 Range/Units 21:10 17:00 17:03 RBC (4.30-5.90) m/uL Hgb (13.0-17.5) gm/dL Hct (39.0-53.0) % MCV (80.0-100.0) fL MCHC (31.0-37.0) g/dL RDW (11.5-15.5) % Chloride (98-107) mmol/L Carbon Dioxide (22-30) mmol/L BUN (9-20) mg/dL Creatinine (0.66-1.25) mg/dL POC Glucose (mg/dL) >600 H 141 H (75-99) mg/dL Calcium (8.4-10.2) mg/dL Crossmatch See Detail 08/15/21 08/15/21 Range/Units 08:51 08:51 RBC 2.75 L (4.30-5.90) m/uL Hgb 8.9 L (13.0-17.5) gm/dL Hct 28.8 L (39.0-53.0) % MCV 104.7 H (80.0-100.0) fL MCHC 30.9 L (31.0-37.0) g/dL RDW 17.0 H (11.5-15.5) % Chloride 116 H (98-107) mmol/L Carbon Dioxide 19 L (22-30) mmol/L BUN 33 H (9-20) mg/dL Creatinine 1.33 H (0.66-1.25) mg/dL POC Glucose (mg/dL) (75-99) mg/dL Calcium 8.1 L (8.4-10.2) mg/dL Crossmatch Assessment and Plan Assessment: Acute GI bleeding Acute symptomatic anemia secondary to GI bleeding Monitor hemoglobin Blood transfusion, fresh frozen plasma transfusion Hold Eliquis Patient given kcentra and tranexamic surgery consultation Fall precautions Gen. surgery consultation, pending colonoscopy EGD did not identify source of bleed, no gastritis. Reports colonoscopy 2 years ago is unremarkable Left Foot Cellulitis cefazolin 1g q8h started today Bilateral skin changes of the legs due to venous stasis ulcers Paroxysmal A. fib status post pacemaker on Eliquis CK D Hypertension History of CAD status post stents 10 years ago Resume home medications Hold ASPIRIN and Eliquis LE duplex of left leg, neg for DVT wound care consult Full code DVT prophylaxis mechanical GI prophylaxis Protonix Anticipated length of stay more than 2 midnights
[2021-08-15] MEDS: FUROSEMIDE 10 MG/ML 4 ML VIAL IV SCH ×2 (11:25→20:12)
[2021-08-15 11:54] LABS: Platelet Count 85 k/uL (150-450)
[2021-08-15 11:57] LABS: Poikilocytosis (M) Present
--- NOTE | 2021-08-15 12:10 | P.PN ---
Subjective Progress Note Date: 08/15/21 HISTORY OF PRESENT ILLNESS: This is a pleasant 71-year-old male past medical history significant for coronary artery disease status post stent placement to the mid and proximal circ umflex, persistent atrial fibrillation on long-term anticoagulation, hypertension, dyslipidemia, chronic kidney disease, ventricular arrhythmias (PVCs and NSVT), and obstructive sleep apnea. He follows in the office with Dr. Fields, underwent biventricular pacemaker implantation 07/13/2021 for management of persistent A. fib with RVR. Patient had developed hematoma at the site which required separate wound closure and now noticed has significant ecchymosis to the area. Patient was brought into the hospital due to hematochezia status post transfusion of 2 units packed RBCs and 2 units of fresh frozen plasma on 08/11. Dr. Mccullough is planning for EGD tomorrow. Patient went into A. fib with RVR last evening and was started on amiodarone drip. This morning, 18 was called for suspected V. tach but no bedside states cardiac strips were obtained and at that time, patient was started on Lopressor 25 mg twice daily. Upon review of cardiac monitoring, it appears that patient have A. fib with RVR. We will have his pacemaker check done today. DIAGNOSTICS EKG reveals atrial fibrillation heart rate 99 Telemetry tracings indicate atrial fibrillation with rapid ventricular response HR 120-150s Chest xray reveals mild pleural reaction and atelectasis right lung base without change. No heart failure. Laboratory studies: WBC 8.5, hemoglobin 9.2, platelet count 81. BUN 55 and creatinine 1.9. Magnesium 1.7. AST 64. Troponins 0.044 and 0.035. Carotid virus PCR not detected. Current home cardiac medications include amiodarone 100 mg daily, eliquis 5 mg twice daily, Lipitor 80 mg daily, Lasix 60 mg daily, Toprol-XL 50 mg daily at bedtime and 25 mg daily in the morning, Aldactone 25 mg daily Echocardiogram revealed an EF of 30-35%, LA severely dilated, mild mitral regurgitation, mild tricuspid practitioner note mild pulmonary hypertension. 08/15/2021 Patient examined this morning at the bedside. He denies chest pain or pressure. Denies SOB. Telemetry reveals atrial fibrillation. Eliquis remains on hold. He is scheduled for colonoscopy tomorrow. Echocardiogram completed revealing ejection fraction 40-45%, mild aortic regurgitation, mild mitral regurgitation, mild tricuspid regurgitation, and moderate pulmonary hypertension. PHYSICAL EXAM: VITAL SIGNS: Reviewed. GENERAL: Well-developed in no acute distress. NECK: Supple. No JVD or thyromegaly LUNGS: Respirations even and unlabored. Lungs essentially clear to auscultation bilaterally. HEART: Irregular rate and rhythm. S1 and S2 heard. Systolic murmur noted. EXTREMITIES: Normal range of motion. No clubbing or cyanosis. Peripheral pulses intact. 3+ lower extremity edema ASSESSMENT: Acute GI bleed Persistent atrial fibrillation with rapid ventricular response- on long-term anticoagulation Eliquis Chronic systolic heart failure Increased lower extremity edema secondary to Lasix being held secondary to borderline blood pressures Coronary artery disease status post stent placement to the mid and proximal circ umflex History of hypertension Dyslipidemia Chronic kidney disease History of ventricular arrhythmias (PVCs and NSVT) Obstructive sleep apnea. PLAN: Continue to hold Eliquis Patient scheduled for colonoscopy tomorrow Begin Lasix 40 mg IV every 12 hours. Anticipate transition to oral Lasix tomorrow. Further recommendations pending patient course Nurse practitioner note has been reviewed by physician. Signing provider agrees with the documented findings, assessment, and plan of care. Objective - Vital Signs Vital signs: Vital Signs Temp 97.7 F 08/15/21 11:39 Pulse 97 08/15/21 11:39 Resp 20 08/15/21 11:39 BP 107/64 08/15/21 11:39 Pulse Ox 100 08/15/21 11:39 Intake & Output 08/14/21 08/15/21 08/15/21 18:59 06:59 18:59 Intake Total 380 780 Output Total 200 275 Balance 180 505 Intake: IV 200 Oral 180 780 Output: Urine 200 275 Other: Voiding Method Urinal Urinal # Voids 1 1 - Labs CBC & Chem 7: 08/15/21 08:51 08/15/21 08:51 Labs: Abnormal Lab Results - Last 24 Hours (Table) 08/11/21 08/14/21 08/14/21 Range/Units 21:10 17:00 17:03 RBC (4.30-5.90) m/uL Hgb (13.0-17.5) gm/dL Hct (39.0-53.0) % MCV (80.0-100.0) fL MCHC (31.0-37.0) g/dL RDW (11.5-15.5) % Plt Count (150-450) k/uL Lymphocytes # (1.0-4.8) k/uL Chloride (98-107) mmol/L Carbon Dioxide (22-30) mmol/L BUN (9-20) mg/dL Creatinine (0.66-1.25) mg/dL POC Glucose (mg/dL) >600 H 141 H (75-99) mg/dL Calcium (8.4-10.2) mg/dL Crossmatch See Detail 08/15/21 08/15/21 Range/Units 08:51 08:51 RBC 2.75 L (4.30-5.90) m/uL Hgb 8.9 L (13.0-17.5) gm/dL Hct 28.8 L (39.0-53.0) % MCV 104.7 H (80.0-100.0) fL MCHC 30.9 L (31.0-37.0) g/dL RDW 17.0 H (11.5-15.5) % Plt Count 85 L (150-450) k/uL Lymphocytes # 0.4 L (1.0-4.8) k/uL Chloride 116 H (98-107) mmol/L Carbon Dioxide 19 L (22-30) mmol/L BUN 33 H (9-20) mg/dL Creatinine 1.33 H (0.66-1.25) mg/dL POC Glucose (mg/dL) (75-99) mg/dL Calcium 8.1 L (8.4-10.2) mg/dL Crossmatch
--- NOTE | 2021-08-15 13:55 | P.PN ---
<Beth Starr - Last Filed: 08/15/21 13:48> Subjective Progress Note Date: 08/15/21 CHIEF COMPLAINT: Hematochezia HISTORY OF PRESENT ILLNESS: The patient is a 71-year-old male status post pacemaker implantation over 2 weeks ago. He has been on blood thinners and has generalized malaise. He was admitted due to acute large GI bleed with moderate drop in Hgb from 15.6 baseline down to 9.4. Patient status post EGD that revealed diaphragmatic hiatal hernia, Martinez's esophagus and erosive esophagitis. Patient sitting up at bedside chair. Denies any abdominal pain. Reports no further blood in his stools. Afebrile. WBC is 5.1 hemoglobin 8.9 platelets 85 sodium 140 potassium 4.1 creatinine 1.33 PHYSICAL EXAM: VITAL SIGNS: Reviewed GENERAL: Well-developed in no acute distress. HEENT: No sclera icterus. Extraocular movements grossly intact. Moist buccal mucosa. Head is atraumatic, normocephalic. Hears conversational speech. No nasal drainage. NECK: Supple without lymphadenopathy. CHEST: Non-labored respirations and equal bilateral excursions. CARDIOVASCULAR: Palpable 2+ radial pulses. ABDOMEN: Soft. Nondistended. Nontender. MUSCULOSKELETAL: No clubbing or cyanosis. NEUROLOGIC: No focal or lateralizing signs. Cranial nerves II through XII grossly intact. PSYCH: Appropriate affect. Alert and oriented to person, place and time. SKIN: Well perfused. Good skin turgor. ASSESSMENT: 1. Acute GI bleed 2. Gastroesophageal reflux disease 3. Diaphragmatic hiatal hernia 4. Martinez's esophagus 5. Atrial fibrillation had been on the Eliquis 6. Chronic systolic heart failure 7. Chronic kidney disease PLAN: -Colonoscopy scheduled for tomorrow, 08/16/[address]ccullough -Keep patient nothing by mouth after midnight -Clear liquid diet for today -Continue to hold blood thinners Physician Loan And Credit Manager note has been reviewed by physician. Signing provider agrees with the documented findings, assessment, and plan of care. Objective - Vital Signs Vital signs: Vital Signs Temp 97.7 F 08/15/21 11:39 Pulse 97 08/15/21 11:39 Resp 20 08/15/21 11:39 BP 107/64 08/15/21 11:39 Pulse Ox 100 08/15/21 11:39 Intake & Output 08/14/21 08/15/21 08/15/21 18:59 06:59 18:59 Intake Total 380 780 Output Total 200 275 Balance 180 505 Intake: IV 200 Oral 180 780 Output: Urine 200 275 Other: Voiding Method Urinal Urinal # Voids 1 1 - Labs CBC & Chem 7: 08/15/21 08:51 08/15/21 08:51 Labs: Abnormal Lab Results - Last 24 Hours (Table) 08/11/21 08/14/21 08/14/21 Range/Units 21:10 17:00 17:03 RBC (4.30-5.90) m/uL Hgb (13.0-17.5) gm/dL Hct (39.0-53.0) % MCV (80.0-100.0) fL MCHC (31.0-37.0) g/dL RDW (11.5-15.5) % Plt Count (150-450) k/uL Lymphocytes # (1.0-4.8) k/uL Chloride (98-107) mmol/L Carbon Dioxide (22-30) mmol/L BUN (9-20) mg/dL Creatinine (0.66-1.25) mg/dL POC Glucose (mg/dL) >600 H 141 H (75-99) mg/dL Calcium (8.4-10.2) mg/dL Crossmatch See Detail 08/15/21 08/15/21 Range/Units 08:51 08:51 RBC 2.75 L (4.30-5.90) m/uL Hgb 8.9 L (13.0-17.5) gm/dL Hct 28.8 L (39.0-53.0) % MCV 104.7 H (80.0-100.0) fL MCHC 30.9 L (31.0-37.0) g/dL RDW 17.0 H (11.5-15.5) % Plt Count 85 L (150-450) k/uL Lymphocytes # 0.4 L (1.0-4.8) k/uL Chloride 116 H (98-107) mmol/L Carbon Dioxide 19 L (22-30) mmol/L BUN 33 H (9-20) mg/dL Creatinine 1.33 H (0.66-1.25) mg/dL POC Glucose (mg/dL) (75-99) mg/dL Calcium 8.1 L (8.4-10.2) mg/dL Crossmatch <Theresa Mccullough N - Last Filed: 08/16/21 04:56> Subjective CHIEF COMPLAINT: Hematochezia HISTORY OF PRESENT ILLNESS: The patient is a 71-year-old male who presented with acute lower GI bleed including anemia due to anticoagulation. 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 No reports of bleeding today. Denies abdominal pain. REVIEW OF ORGAN SYSTEMS: No acute shortness of breath. No fevers or chills. PHYSICAL EXAM: VITALS: Reviewed CONSTITUTIONAL: Well developed and in no acute distress. EYES: Conjuctivae without sclera icterus. Extraocular movements grossly intact. HEAD, EARS, NOSE, THROAT: Moist buccal mucosa. Head is atraumatic, normocephalic. Hears conversational speech. No nasal drainage. RESPIRATORY: Non-labored respirations and equal bilateral excursions. CARDIOVASCULAR: 2+ radial pulses. ABDOMEN: Obese. No peritonitis. MUSCULOSKELETAL: No clubbing or cyanosis. SKIN: Moderate edema of the lower legs with serous drainage. NEUROLOGIC: Cranial nerves II through XII grossly intact. No focal or lateralizing signs. PSYCH: Appropriate affect. Alert and oriented to person, place and time. CLINCAL LABS: Reviewed. Hemoglobin down to 9.9-8.9. ASSESSMENT: 1. Gastrointestinal bleeding 2. Martinez's esophagitis with gastritis 3. Chronic anticoagulant use PLAN: 1. His hemoglobin continues to decline. Suspected anticoagulation. 2. We'll proceed with colonoscopy following bowel prep. Objective - Vital Signs Vital signs: Vital Signs Temp 96 F L 08/16/21 00:00 Pulse 97 08/16/21 01:57 Resp 18 08/16/21 01:57 BP 120/71 08/16/21 00:00 Pulse Ox 93 L 08/16/21 00:00 Intake & Output 08/15/21 08/15/21 08/16/21 06:59 18:59 06:59 Intake Total 1260 Output Total 450 Balance 810 Intake: Oral 1260 Output: Urine 450 Other: Voiding Method Urinal Urinal Urinal # Voids 1 2 1 # Bowel Movements 3 - Labs CBC & Chem 7: 08/15/21 08:51 08/15/21 08:51 Labs: Abnormal Lab Results - Last 24 Hours (Table) 08/15/21 08/15/21 Range/Units 08:51 08:51 RBC 2.75 L (4.30-5.90) m/uL Hgb 8.9 L (13.0-17.5) gm/dL Hct 28.8 L (39.0-53.0) % MCV 104.7 H (80.0-100.0) fL MCHC 30.9 L (31.0-37.0) g/dL RDW 17.0 H (11.5-15.5) % Plt Count 85 L (150-450) k/uL Lymphocytes # 0.4 L (1.0-4.8) k/uL Chloride 116 H (98-107) mmol/L Carbon Dioxide 19 L (22-30) mmol/L BUN 33 H (9-20) mg/dL Creatinine 1.33 H (0.66-1.25) mg/dL Calcium 8.1 L (8.4-10.2) mg/dL Assessment and Plan (1) Morbid (severe) obesity due to excess calories Current Visit: Yes Status: Acute Code(s): E66.01 - MORBID (SEVERE) OBESITY DUE TO EXCESS CALORIES SNOMED Code(s): 474405394 (2) BMI 35.0-35.9,adult Current Visit: Yes Status: Acute Code(s): Z68.35 - BODY MASS INDEX [BMI] 35.0-35.9, ADULT SNOMED Code(s): 676209737 (3) Pacemaker complications Current Visit: Yes Status: Acute Code(s): T82.9XXA - UNSP COMP OF CARDIAC AND VASCULAR PROSTH DEV/GRFT, INIT SNOMED Code(s): 983425129 (4) Atrial fibrillation Current Visit: Yes Status: Acute Code(s): I48.91 - UNSPECIFIED ATRIAL FIBRILLATION SNOMED Code(s): 22481109 (5) GI bleed Current Visit: Yes Status: Acute Code(s): K92.2 - GASTROINTESTINAL HEMORRHAGE, UNSPECIFIED SNOMED Code(s): 80069553 (6) Hematochezia Current Visit: Yes Status: Acute Code(s): K92.1 - MELENA SNOMED Code(s): 420435836 (7) Hypotension Current Visit: Yes Status: Acute Code(s): I95.9 - HYPOTENSION, UNSPECIFIED SNOMED Code(s): 33647859 (8) Melena Current Visit: Yes Status: Acute Code(s): K92.1 - MELENA SNOMED Code(s): 5861358 (9) Rapid atrial fibrillation Current Visit: No Status: Acute Code(s): I48.91 - UNSPECIFIED ATRIAL FIBRILLATION SNOMED Code(s): 893640616
[2021-08-15] MEDS: ALPRAZolam 1 MG TAB PO SCH (20:12)
[2021-08-16] MEDS: SODIUM CHLORIDE 0.9% 1,000 ML IV SCH ×2 (04:24→11:22)
[2021-08-16 06:03] LABS: Anisocytosis Slight; HCT 26.2 % (39.0-53.0); HGB 8.7 gm/dL (13.0-17.5); Hypochromasia Slight; Macrocytosis Slight; Mean Platelet Volume 9.8; Poikilocytosis Slight; RDW 17.6 % (11.5-15.5); WBC 5.4 k/uL (3.8-10.6)
[2021-08-16 06:08] LABS: Platelet Count 60 k/uL (150-450)
[2021-08-16 06:42] LABS: Band Neutrophils % 2 %; Eosinophils # (M) 0.05 k/uL (0-0.7); Lymphocytes # (M) 1.03 k/uL (1.0-4.8); Metamyelocytes # (M) 0.05 k/uL (0); Metamyelocytes % 1 %; Monocytes # (M) 0.54 k/uL (0-1.0); Neutrophils % (M) 69 %; Nucleated Red Blood Cells 0 /100 WBC (0-0); Polychromasia Present; RBC Fragments Present; Total Cells Counted 200
[2021-08-16 06:43] LABS: Anisocytosis (M) Present; Poikilocytosis (M) Present
[2021-08-16] MEDS: AMIODARONE 200 MG TAB PO SCH ×3 (09:22→21:02)
[2021-08-16] MEDS: PANTOPRAZOLE 40 MG/10 ML VIAL IV SCH (09:22)
[2021-08-16] MEDS: allopurinoL 100 MG TAB PO SCH (09:22)
[2021-08-16] MEDS: ATORVASTATIN 80 MG TAB PO SCH (09:22)
[2021-08-16] MEDS: FUROSEMIDE 10 MG/ML 4 ML VIAL IV SCH ×2 (09:22→21:03)
[2021-08-16] MEDS: METOPROLOL TARTRATE 25 MG TAB PO SCH ×3 (09:22→21:01)
[2021-08-16] MEDS: HYDROcodone/APAP 5-325MG 1 EACH TAB PO PRN ×3 (09:23→21:02)
[2021-08-16] MEDS ORDERED: KETAMINE 10 MG/ML 20 ML VIAL ONE (10:33)
[2021-08-16] MEDS ORDERED: MIDAZOLAM 2 MG/2 ML VIAL ONE (10:33)
[2021-08-16] MEDS ORDERED: LIDOCAINE 1% INJ 10MG/ML (20 ML MDV) ONE (10:33)
[2021-08-16] MEDS ORDERED: PROPOFOL 10 MG/ML 20 ML VIAL IV ONE (10:33)
[2021-08-16] MEDS ORDERED: IV FLUID CONTINUATION 1,000 ML IV ONE (10:50)
[2021-08-16] MEDS ORDERED: SODIUM CHLORIDE 0.9% 500 ML 500 ML IV ONE (10:58)
--- NOTE | 2021-08-16 11:16 | P.PCN ---
Date of Procedure: 08/16/21 Description of Procedure: PREOPERATIVE DIAGNOSIS: Acute blood loss anemia Gastrointestinal bleeding with hematochezia Thrombocytopenia POSTOPERATIVE DIAGNOSIS: Severe sigmoid diverticulosis with recent bleeding Grade 3 internal hemorrhoids with recent inflammation Proximal transverse colon adenomas 3 OPERATION: Colonoscopy to the cecum, ileocecal valve and appendiceal orifice SURGEON: Theresa Mccullough MD. ANESTHESIA: MAC. INDICATIONS: The patient is a 71-year-old male who presents with gastrointestinal bleeding and hematochezia. Benefits and risks were described and informed consent was obtained. DESCRIPTION OF PROCEDURE: The patient had undergone attempted Golytely prep 2 L. The patient had been brought into the operating room and laid in the left lateral decubitus position. After adequate intravenous sedation, the rectum was examined with 2% lidocaine jelly. Grade 2 internal hemorrhoids with recent inflammation. The rectal tone was within normal limits. An Olympus colonoscope was gently advanced to the cecum with clear visualization of the ileocecal valve including appendiceal orifice. The prep was fair. Severe sigmoid diverticulosis was encountered recent bleeding. Recent bleeding was found within the ileocecal valve consistent with small bowel bleed. No active colonic bleeding was found. Colonic polyps were found at transverse colon 3 however unresected due to moderate to severe thrombocytopenia and gastrointestinal bleeding. No focal colitis was found. Retroflexion of the scope demonstrated grade 2 internal hemorrhoids with recent inflammation. The colon was desufflated. The patient had tolerated the procedure well. Withdrawal time was over 6 minutes. FINDINGS: Aronchick preparation quality scale 3 (1-5) Internal hemorrhoids, grade 2 with recent inflammation No thrombosed hemorrhoid identified. No arteriovenous malformations. Severe sigmoid diverticulosis with recent bleeding. Recent bleeding was found within the ileocecal valve consistent with small bowel bleed. No active colonic bleeding found. Colonic polyps were found at proximal transverse colon 3 however unresected due to moderate to severe thrombocytopenia and gastrointestinal bleeding. No focal colitis. RECOMMENDATIONS: 1. Recommend against future anticoagulation due to high risk for rebleed with sigmoid diverticulosis and small bowel intestinal bleeding 2. Will proceed with tagged RBC scan 3. Heart healthy diet 4. Repeat colonoscopy 3 to 6 months for polypectomy Plan - Discharge Summary New Discharge Prescriptions: No Action Apixaban [Eliquis] 5 mg PO BID ALPRAZolam [Xanax] 1 mg PO HS Aspirin [Adult Low Dose Aspirin EC] 81 mg PO DAILY Latanoprost Ophth [Xalatan 0.005%] 1 drops BOTH EYES HS ml allopurinoL [Zyloprim] 100 mg PO DAILY Acetaminophen-Codeine 300-30mg [Tylenol w/codeine #3] 1 tab PO Q6H PRN PRN Reason: Pain Pantoprazole Sodium [Protonix] 40 mg PO DAILY Atorvastatin [Lipitor] 80 mg PO DAILY SILVER sulfADIAZINE CREAM [Silvadene Cream] 1 applic TOPICAL DAILY PRN PRN Reason: WOUND CARE Metoprolol Succinate [Toprol XL] 50 mg PO HS Menthol-Zinc Oxide Oint [Calmoseptine Oint] 1 applic TOPICAL BID PRN PRN Reason: SKIN CONDITIONS Ferrous Sulfate [Feosol] 325 mg PO DAILY Spironolactone [Aldactone] 25 mg PO DAILY 30 Days #30 tab Furosemide [Lasix] 60 mg PO DAILY Metoprolol Succinate (ER) [Toprol XL] 25 mg PO DAILY #90 tab Amiodarone HCl [Pacerone] 100 mg PO DAILY Metoclopramide [Reglan] 5 mg PO W/BRKFST Discharge Medication List ALPRAZolam [Xanax] 1 mg PO HS 04/15/15 [History] Apixaban [Eliquis] 5 mg PO BID 04/15/15 [History] Aspirin [Adult Low Dose Aspirin EC] 81 mg PO DAILY 04/09/16 [History] Latanoprost Ophth [Xalatan 0.005%] 1 drops BOTH EYES HS ml 04/13/16 [Rx] allopurinoL [Zyloprim] 100 mg PO DAILY 05/07/19 [History] Acetaminophen-Codeine 300-30mg [Tylenol w/codeine #3] 1 tab PO Q6H PRN 01/20/21 [History] Atorvastatin [Lipitor] 80 mg PO DAILY 02/20/21 [History] Pantoprazole Sodium [Protonix] 40 mg PO DAILY 02/20/21 [History] Spironolactone [Aldactone] 25 mg PO DAILY 30 Days #30 tab 02/24/21 [Rx] Furosemide [Lasix] 60 mg PO DAILY 03/30/21 [History] Metoprolol Succinate (ER) [Toprol XL] 25 mg PO DAILY #90 tab 04/03/21 [Rx] Amiodarone HCl [Pacerone] 100 mg PO DAILY 08/11/21 [History] Ferrous Sulfate [Feosol] 325 mg PO DAILY 08/11/21 [History] Menthol-Zinc Oxide Oint [Calmoseptine Oint] 1 applic TOPICAL BID PRN 08/11/21 [History] Metoclopramide [Reglan] 5 mg PO W/BRKFST 08/11/21 [History] Metoprolol Succinate [Toprol XL] 50 mg PO HS 08/11/21 [History] SILVER sulfADIAZINE CREAM [Silvadene Cream] 1 applic TOPICAL DAILY PRN 08/11/21 [History] Follow up Appointment(s)/Referral(s): Karsten Wells MD [STAFF PHYSICIAN] - 1 Week [facility], [NON-STAFF] - Patient Instructions/Handouts: Heart Catheterization (GEN)
--- NOTE | 2021-08-16 11:31 | P.CONS ---
History of Present Illness - Reason for Consult Consult date: 08/16/21 wound care - History of Present Illness This is a 71-year-old patient being seen on [facility] [address] for weeping edema and nonhealing ulcerations to bilateral lower extremities. Patient has blistering noted to the left lower extremity with SKIN intact at this time. He does have weeping edema noted. The right lower extremity has 2 ulcerations with fat layer exposure. Granulation seen throughout with minimal slough. With weeping edema noted. Patient's past medical history significant for atrial fibrillation, hyperlipidemia, hypertension, sleep apnea, chronic kidney disease stage III is lifelong nonsmoker. Review Of Systems: Constitutional: No fever, no chills, no night sweats. No weight change. No weakness, fatigue or lethargy. No daytime sleepiness. Integumentary:reports wounds, no lesions. No rash or pruritus. No unusual bruising. No change in hair or nails. Physical exam: General Appearance: Alert, cooperative, no distress, appears stated age. Skin: See HPI all other Skin color, texture, tugor normal, no rashes or lesions. Neurologic: Alert oriented x3 Assessment: 1. Pressure ulcer right calf with fatty layer exposure 2. Chronic venous hypertension with ulceration and inflammation right lower ex tremity 3. Chronic venous hypertension with inflammation left lower extremity Plan: 1.Apply absorptive silver to blistered and open ulcerations, ABD, and rolled gauze and secure tape. Wrap with Edsi wrap for compression. May change outer dressings as needed if saturated. Thank you for the consultation any questions please contact the wound care center DNP note has been reviewed and discussed with Dr. Roy and the impression and plan of care has been directed as dictated. 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 SEE DR. PAYNE'S [facility] & P Last Myocardial Infarction Date:: 2010 History of Any Multi-Drug Resistant Organisms: None Reported Past Surgical History: Cholecystectomy, Heart Catheterization With Stent, Joint Replacement, Orthopedic Surgery, Tonsillectomy Additional Past Surgical History / Comment(s): BILAT TKA AND DANIELLE, BILAT KNEE SCOPES, COLONOSCOPIES, CARDIOVERSION 04/03/21, pacemaker placed 07/15/21 Past Anesthesia/Blood Transfusion Reactions: No Reported Reaction Date of Last Stent Placement:: 2010 Past Psychological History: No Psychological Hx Reported Smoking Status: Never smoker Past Alcohol Use History: Occasional Past Drug Use History: None Reported - Past Family History Mother Family Medical History: Cancer Additional Family Medical History / Comment(s): Mother of breast cancer at the age of 79yrs. Father Family Medical History: Coronary Artery Disease (CAD) Additional Family Medical History / Comment(s): Father had heart problems. He had coronary valve replacement. He at the age of 83 yrs. Medications and Allergies Home Medications Medication Instructions Recorded Confirmed Type ALPRAZolam [Xanax] 1 mg PO HS 04/15/15 08/11/21 History Apixaban [Eliquis] 5 mg PO BID 04/15/15 08/11/21 History Aspirin [Adult Low Dose Aspirin EC] 81 mg PO DAILY 04/09/16 08/11/21 History Latanoprost Ophth [Xalatan 0.005%] 1 drops BOTH EYES HS ml 04/13/16 08/11/21 Rx allopurinoL [Zyloprim] 100 mg PO DAILY 05/07/19 08/11/21 History Acetaminophen-Codeine 300-30mg 1 tab PO Q6H PRN 01/20/21 08/11/21 History [Tylenol w/codeine #3] Atorvastatin [Lipitor] 80 mg PO DAILY 02/20/21 08/11/21 History Pantoprazole Sodium [Protonix] 40 mg PO DAILY 02/20/21 08/11/21 History Spironolactone [Aldactone] 25 mg PO DAILY 30 Days #30 tab 02/24/21 08/11/21 Rx Furosemide [Lasix] 60 mg PO DAILY 03/30/21 08/11/21 History Metoprolol Succinate (ER) [Toprol 25 mg PO DAILY #90 tab 04/03/21 08/11/21 Rx XL] Amiodarone HCl [Pacerone] 100 mg PO DAILY 08/11/21 08/11/21 History Ferrous Sulfate [Feosol] 325 mg PO DAILY 08/11/21 08/11/21 History Menthol-Zinc Oxide Oint 1 applic TOPICAL BID PRN 08/11/21 08/11/21 History [Calmoseptine Oint] Metoclopramide [Reglan] 5 mg PO W/BRKFST 08/11/21 08/11/21 History Metoprolol Succinate [Toprol XL] 50 mg PO HS 08/11/21 08/11/21 History SILVER sulfADIAZINE CREAM 1 applic TOPICAL DAILY PRN 08/11/21 08/11/21 History [Silvadene Cream] Allergies Allergy/AdvReac Type Severity Reaction Status Date / Time No Known Allergies Allergy Verified 08/11/21 22:01 Physical Exam Vitals: Vital Signs Temp Pulse Resp BP BP Pulse Ox 08/16/21 09:13 93 L 08/16/21 08:00 97.4 F L 68 19 101/57 100 08/16/21 04:00 98.6 F 83 18 92/61 92 L 08/16/21 01:57 97 18 08/16/21 00:00 96 F L 97 18 120/71 93 L 08/15/21 20:00 98 F 90 18 102/69 99 08/15/21 15:46 97.6 F 96 18 101/68 98 08/15/21 13:51 20 08/15/21 11:39 97.7 F 97 20 107/64 100 Intake and Output 08/15/21 08/16/21 08/16/21 22:59 06:59 14:59 Intake Total 480 200 Output Total 175 Balance 305 200 Intake: IV 200 Oral 480 Output: Urine 175 Other: Voiding Method Urinal Urinal Urinal # Voids 2 1 # Bowel Movements 1 1 Weight 128.5 kg Results CBC & Chem 7: 08/16/21 05:36 08/15/21 08:51 Labs: Abnormal Lab Results - Last 24 Hours (Table) 08/15/21 08/16/21 Range/Units 08:51 05:36 RBC 2.70 L (4.30-5.90) m/uL Hgb 8.7 L (13.0-17.5) gm/dL Hct 26.2 L (39.0-53.0) % RDW 17.6 H (11.5-15.5) % Plt Count 85 L 60 L (150-450) k/uL Lymphocytes # 0.4 L (1.0-4.8) k/uL Metamyelocytes # (Man) 0.05 H (0) k/uL Assessment and Plan (1) Non-pressure chronic ulcer of right calf with fat layer exposed Current Visit: Yes Status: Acute Code(s): L97.212 - NON-PRESSURE CHRONIC ULCER OF RIGHT CALF W FAT LAYER EXPOSED SNOMED Code(s): 11054089090465717 (2) Chronic venous hypertension (idiopathic) with ulcer and inflammation of right lower extremity Current Visit: Yes Status: Acute Code(s): I87.331 - CHRONIC VENOUS HTN W ULCER AND INFLAMMATION OF R LOW EXTREM; L97.919 - NON-PRS CHRONIC ULC UNSP PRT OF R LOW LEG W UNSP SEVERITY SNOMED Code(s): 801420617103665 (3) Chronic venous hypertension (idiopathic) with inflammation of left lower extremity Current Visit: Yes Status: Acute Code(s): I87.322 - CHRONIC VENOUS HYPERTENSION W INFLAMMATION OF L LOW EXTREM SNOMED Code(s): 357568162
--- NOTE | 2021-08-16 12:24 | P.PN ---
Subjective Progress Note Date: 08/16/21 HISTORY OF PRESENT ILLNESS: This is a pleasant 71-year-old male past medical history significant for coronary artery disease status post stent placement to the mid and proximal circ umflex, persistent atrial fibrillation on long-term anticoagulation, hypertension, dyslipidemia, chronic kidney disease, ventricular arrhythmias (PVCs and NSVT), and obstructive sleep apnea. He follows in the office with Dr. Fields, underwent biventricular pacemaker implantation 07/13/2021 for management of persistent A. fib with RVR. Patient had developed hematoma at the site which required separate wound closure and now noticed has significant ecchymosis to the area. Patient was brought into the hospital due to hematochezia status post transfusion of 2 units packed RBCs and 2 units of fresh frozen plasma on 08/11. Dr. Mccullough is planning for EGD tomorrow. Patient went into A. fib with RVR last evening and was started on amiodarone drip. This morning, 18 was called for suspected V. tach but no bedside states cardiac strips were obtained and at that time, patient was started on Lopressor 25 mg twice daily. Upon review of cardiac monitoring, it appears that patient have A. fib with RVR. We will have his pacemaker check done today. DIAGNOSTICS EKG reveals atrial fibrillation heart rate 99 Telemetry tracings indicate atrial fibrillation with rapid ventricular response HR 120-150s Chest xray reveals mild pleural reaction and atelectasis right lung base without change. No heart failure. Laboratory studies: WBC 8.5, hemoglobin 9.2, platelet count 81. BUN 55 and creatinine 1.9. Magnesium 1.7. AST 64. Troponins 0.044 and 0.035. Carotid virus PCR not detected. Current home cardiac medications include amiodarone 100 mg daily, eliquis 5 mg twice daily, Lipitor 80 mg daily, Lasix 60 mg daily, Toprol-XL 50 mg daily at bedtime and 25 mg daily in the morning, Aldactone 25 mg daily Echocardiogram revealed an EF of 30-35%, LA severely dilated, mild mitral regurgitation, mild tricuspid practitioner note mild pulmonary hypertension. 08/15/2021 Patient examined this morning at the bedside. He denies chest pain or pressure. Denies SOB. Telemetry reveals atrial fibrillation. Eliquis remains on hold. He is scheduled for colonoscopy tomorrow. Echocardiogram completed revealing ejection fraction 40-45%, mild aortic regurgitation, mild mitral regurgitation, mild tricuspid regurgitation, and moderate pulmonary hypertension. 08/16/2021 Patient examined this morning at the bedside. Patient denies chest pain or pressure. He denies shortness of breath. He continues to have lower extremity edema. He is on IV Lasix 40 mg every 12 hours. Patient is scheduled to undergo colonoscopy today. Patient remains in atrial fibrillation with heart rates into the 130s with exertion. PHYSICAL EXAM: VITAL SIGNS: Reviewed. GENERAL: Well-developed in no acute distress. NECK: Supple. No JVD or thyromegaly LUNGS: Respirations even and unlabored. Lungs essentially clear to auscultation bilaterally. HEART: Irregular rate and rhythm. S1 and S2 heard. Systolic murmur noted. EXTREMITIES: Normal range of motion. No clubbing or cyanosis. Peripheral pulses intact. 3+ lower extremity edema ASSESSMENT: Acute GI bleed Persistent atrial fibrillation with rapid ventricular response- on shelter anticoagulation Eliquis Chronic systolic heart failure Increased lower extremity edema secondary to Lasix being held secondary to borderline blood pressures Coronary artery disease status post stent placement to the mid and proximal circumflex History of hypertension Dyslipidemia Chronic kidney disease History of ventricular arrhythmias (PVCs and NSVT) Obstructive sleep apnea. PLAN: Continue to hold Eliquis Patient scheduled for colonoscopy today Increase metoprolol to 3 times a day dosing for optimal heart rate control Continue IV Lasix due to lower extremity edema. Will reevaluate tomorrow. Further recommendations pending patient course Nurse practitioner note has been reviewed by physician. Signing provider agrees with the documented findings, assessment, and plan of care. Objective - Vital Signs Vital signs: Vital Signs Temp 98.2 F 08/16/21 11:27 Pulse 100 08/16/21 11:27 Resp 18 08/16/21 11:27 BP 92/61 08/16/21 11:27 Pulse Ox 99 08/16/21 11:27 Intake & Output 08/15/21 08/16/21 08/16/21 18:59 06:59 18:59 Intake Total 1260 200 Output Total 450 300 Balance 810 -100 Weight 128.5 kg Intake: IV 200 Oral 1260 Output: Urine 450 300 Other: Voiding Method Urinal Urinal Urinal # Voids 2 1 # Bowel Movements 1 1 - Labs CBC & Chem 7: 08/16/21 05:36 08/15/21 08:51 Labs: Abnormal Lab Results - Last 24 Hours (Table) 08/16/21 Range/Units 05:36 RBC 2.70 L (4.30-5.90) m/uL Hgb 8.7 L (13.0-17.5) gm/dL Hct 26.2 L (39.0-53.0) % RDW 17.6 H (11.5-15.5) % Plt Count 60 L (150-450) k/uL Metamyelocytes # (Man) 0.05 H (0) k/uL
[2021-08-16] MEDS ORDERED: VANCOMYCIN IV PER PHARMACY 1 EACH MISC MISCELLANE PRN (15:21)
--- NOTE | 2021-08-16 15:25 | P.PN ---
Subjective Progress Note Date: 08/16/21 Pt seen after colonoscopy today and is doing well. Nursing noted purulent drainage coming from patient's femoral central line in the right groin. BCx ordered from peripheral access and from line, line tip sent for culture as well. Pt started on ceftriaxone yesterday, and will be broadened to vancomycin today. Denies f/c, shakes, pain. Objective - Vital Signs Vital signs: Vital Signs Temp 97.8 F 08/16/21 15:14 Pulse 103 H 08/16/21 15:14 Resp 18 08/16/21 15:14 BP 107/61 08/16/21 15:14 Pulse Ox 93 L 08/16/21 15:14 Intake & Output 08/15/21 08/16/21 08/16/21 18:59 06:59 18:59 Intake Total 1260 620 Output Total 450 300 Balance 810 320 Weight 128.5 kg Intake: IV 200 Oral 1260 420 Output: Urine 450 300 Other: Voiding Method Urinal Urinal Urinal # Voids 2 1 # Bowel Movements 1 1 - Exam Gen: awake, alert HEENT: normocephalic, atraumatic, good hearing acuity, moist mucous membranes Resp: good air exchange, breathing comfortably with no accessory muscle use CVS: good distal perfusion x 4, RRR, no murmurs GI: soft, NTTP, ND : no SPT, no CVAT, esquivel catheter not present MSK: +pitting edema, no clubbing Neuro: non-focal, moving all extremities Psych: cooperative, euthymic mood - Labs CBC & Chem 7: 08/16/21 05:36 08/15/21 08:51 Labs: Abnormal Lab Results - Last 24 Hours (Table) 08/16/21 Range/Units 05:36 RBC 2.70 L (4.30-5.90) m/uL Hgb 8.7 L (13.0-17.5) gm/dL Hct 26.2 L (39.0-53.0) % RDW 17.6 H (11.5-15.5) % Plt Count 60 L (150-450) k/uL Metamyelocytes # (Man) 0.05 H (0) k/uL Assessment and Plan Assessment: Acute GI bleeding Acute symptomatic anemia secondary to GI bleeding Monitor hemoglobin Blood transfusion, fresh frozen plasma transfusion Will permanently discontinue Eliquis Patient given kcentra and tranexamic surgery consultation Fall precautions Gen. surgery consultation, s/p Colonoscopy on 08/16, which showed severe sigmoid diverticulosis with recent bleeding and grade 3 internal hemorrhoids with recent inflammation EGD did not identify source of bleed, no gastritis. Reports colonoscopy 2 years ago is unremarkable Left Foot Cellulitis Right Central Line Associated Blood Stream Infection cefazolin 1g q8h started 08/15, then broadened to vancomycin on 08/16 femoral central line removed, tip Cx pending Blood Cx pending Wound Cx pending Bilateral skin changes of the legs due to venous stasis ulcers Paroxysmal A. fib status post pacemaker on Eliquis CK D Hypertension History of CAD status post stents 10 years ago Resume home medications Hold ASPIRIN and Eliquis LE duplex of left leg, neg for DVT wound care consult Full code DVT prophylaxis mechanical GI prophylaxis Protonix Anticipated length of stay more than 2 midnights
[2021-08-16] MEDS: VANCOMYCIN 2,000 MG in SODIUM CHLORIDE 0.9% 500 ML 500 ML IVPB SCH (16:06)
[2021-08-16] MEDS: ALPRAZolam 1 MG TAB PO SCH (21:01)
[2021-08-17] MEDS: HYDROcodone/APAP 5-325MG 1 EACH TAB PO PRN ×5 (00:50→23:08)
[2021-08-17] MEDS: SODIUM CHLORIDE 0.9% 1,000 ML IV SCH ×3 (00:51→15:37)
[2021-08-17 09:35] LABS: Anisocytosis Slight; HCT 27.7 % (39.0-53.0); HGB 8.8 gm/dL (13.0-17.5); Hypochromasia Moderate; MCH 32.1 pg (25.0-35.0); MCHC 31.8 g/dL (31.0-37.0); MCV 100.9 fL (80.0-100.0); Macrocytosis Slight; Mean Platelet Volume 7.8; Poikilocytosis Slight; RBC 2.75 m/uL (4.30-5.90); RDW 16.8 % (11.5-15.5); WBC 4.9 k/uL (3.8-10.6)
[2021-08-17 09:38] LABS: Platelet Count 117 k/uL (150-450)
[2021-08-17] MEDS: PANTOPRAZOLE 40 MG/10 ML VIAL IV SCH (09:38)
[2021-08-17] MEDS: VANCOMYCIN 2,000 MG in SODIUM CHLORIDE 0.9% 500 ML 500 ML IVPB SCH ×2 (09:38→23:09)
[2021-08-17] MEDS: FUROSEMIDE 10 MG/ML 4 ML VIAL IV SCH (09:38)
[2021-08-17] MEDS: METOPROLOL TARTRATE 25 MG TAB PO SCH ×3 (09:39→21:35)
[2021-08-17] MEDS: ATORVASTATIN 80 MG TAB PO SCH (09:39)
[2021-08-17] MEDS: allopurinoL 100 MG TAB PO SCH (09:39)
[2021-08-17] MEDS: AMIODARONE 200 MG TAB PO SCH ×2 (09:39→21:35)
[2021-08-17] MEDS ORDERED: IOPAMIDOL CONTRAST (ORAL USE) VIAL PO PRN (10:46)
[2021-08-17 10:52] LABS: Band Neutrophils % 1 %; Lymphocytes # (M) 0.34 k/uL (1.0-4.8); Metamyelocytes % 2 %; Monocytes # (M) 0.25 k/uL (0-1.0); Myelocytes % 4 %; Neutrophils % (M) 81 %; Nucleated Red Blood Cells 1 /100 WBC (0-0); Total Cells Counted 100
--- NOTE | 2021-08-17 11:19 | P.PN ---
Subjective Progress Note Date: 08/17/21 Pts BCx are growing GPCs, he was broadened to vancomycin yesterday. Denies f/c, shakes, pain. Objective - Vital Signs Vital signs: Vital Signs Temp 97.7 F 08/17/21 09:35 Pulse 80 08/17/21 09:35 Resp 16 08/17/21 09:35 BP 92/55 08/17/21 09:35 Pulse Ox 95 08/17/21 09:35 Intake & Output 08/16/21 08/17/21 08/17/21 18:59 06:59 18:59 Intake Total 620 470 Output Total 1225 Balance -605 470 Intake: IV 200 Intake, IV Titration 350 Amount Sodium Chloride 0.9% 1, 350 000 ml @ 100 mls/hr IV . Q10H ASHLEY Rx#:[id number] Oral 420 120 Output: Urine 1225 Other: Voiding Method Urinal Urinal Urinal Diaper Diaper # Voids 1 2 # Bowel Movements 1 - Exam Gen: awake, alert HEENT: normocephalic, atraumatic, good hearing acuity, moist mucous membranes Resp: good air exchange, breathing comfortably with no accessory muscle use CVS: good distal perfusion x 4, RRR, no murmurs GI: soft, NTTP, ND : no SPT, no CVAT, esquivel catheter not present MSK: +pitting edema, no clubbing Neuro: non-focal, moving all extremities Psych: cooperative, euthymic mood - Labs CBC & Chem 7: 08/17/21 07:51 08/17/21 07:51 Labs: Abnormal Lab Results - Last 24 Hours (Table) 08/17/21 08/17/21 Range/Units 07:51 07:51 RBC 2.75 L (4.30-5.90) m/uL Hgb 8.8 L (13.0-17.5) gm/dL Hct 27.7 L (39.0-53.0) % MCV 100.9 H (80.0-100.0) fL RDW 16.8 H (11.5-15.5) % Plt Count 117 L D (150-450) k/uL Lymphocytes # (Manual) 0.34 L (1.0-4.8) k/uL Metamyelocytes # (Man) 0.10 H (0) k/uL Myelocytes # (Manual) 0.20 H (0) k/uL Nucleated RBCs 1 H (0-0) /100 WBC Creatinine 1.43 H (0.66-1.25) mg/dL Microbiology - Last 24 Hours (Table) 08/16/21 12:00 Blood Culture Gram Stain - Preliminary Blood 08/16/21 15:15 Gram Stain - Preliminary Groin Wound Culture - Preliminary 08/16/21 12:00 Blood Culture - Final Blood 08/16/21 15:15 Catheter Tip Culture - Preliminary Picc Line 08/16/21 13:25 Blood Culture Gram Stain - Preliminary Blood 08/16/21 13:25 Blood Culture - Final Blood Assessment and Plan Assessment: Acute GI bleeding Acute symptomatic anemia secondary to GI bleeding Monitor hemoglobin Blood transfusion, fresh frozen plasma transfusion Will permanently discontinue Eliquis Patient given kcentra and tranexamic surgery consultation Fall precautions Gen. surgery consultation, s/p Colonoscopy on 08/16, which showed severe sigmoid diverticulosis with recent bleeding and grade 3 internal hemorrhoids with recent inflammation EGD did not identify source of bleed, no gastritis. Reports colonoscopy 2 years ago is unremarkable Left Foot Cellulitis Right Central Line Associated Blood Stream Infection cefazolin 1g q8h started 08/15, then broadened to vancomycin on 08/16 femoral central line removed, tip Cx pending Blood Cx, growing GPCs -repeat BCx tomorrow AM Wound Cx, growing GPCs Bilateral skin changes of the legs due to venous stasis ulcers Paroxysmal A. fib status post pacemaker on Eliquis CK D Hypertension History of CAD status post stents 10 years ago Resume home medications Hold ASPIRIN and Eliquis LE duplex of left leg, neg for DVT wound care consult Full code DVT prophylaxis mechanical GI prophylaxis Protonix Anticipated length of stay more than 2 midnights
--- NOTE | 2021-08-17 11:39 | P.PN ---
Subjective Progress Note Date: 08/17/21 CHIEF COMPLAINT: Hematochezia HISTORY OF PRESENT ILLNESS: The patient is a 71-year-old male who presented with acute lower GI bleed including anemia due to anticoagulation. 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 Colonoscopy performed yesterday demonstrated diverticulosis is recent rebleed including blood within the cecum consistent with small bowel bleed. Patient reports having abdominal discomfort today. He has bilateral Edis wraps of the lower extremities due to swelling. REVIEW OF ORGAN SYSTEMS: No acute shortness of breath. No fevers or chills. PHYSICAL EXAM: VITALS: Reviewed CONSTITUTIONAL: Well developed and in no acute distress. EYES: Conjuctivae without sclera icterus. Extraocular movements grossly intact. HEAD, EARS, NOSE, THROAT: Moist buccal mucosa. Head is atraumatic, normocephalic. Hears conversational speech. No nasal drainage. RESPIRATORY: Non-labored respirations and equal bilateral excursions. CARDIOVASCULAR: 2+ radial pulses. ABDOMEN: Obese. Diffusely tender without peritonitis MUSCULOSKELETAL: No clubbing or cyanosis. SKIN: Moderate edema of the lower legs with serous drainage. NEUROLOGIC: Cranial nerves II through XII grossly intact. No focal or lateralizing signs. PSYCH: Appropriate affect. Alert and oriented to person, place and time. CLINCAL LABS: Reviewed. Hemoglobin now stabilizing from 8.7-8.8. Platelets were low 60 now increased to 117. Creatinine elevated 1.3-1.4 ASSESSMENT: 1. Gastrointestinal bleeding 2. Martinez's esophagitis with gastritis 3. Chronic anticoagulant use 4. Sigmoid diverticulosis with bleeding 5. Small bowel bleeding 6. Acute on chronic renal sufficiency PLAN: 1. At this time, lower endoscopy findings consistent with bleeding diverticulosis including small bowel bleed. Patient's extremely high risk for rebleed with anticoagulants. At this time, patient not felt to be a candidate for further anticoagulation due to high risk for bleeding. 2. We'll obtain CT of the abdomen and pelvis due to new abdominal pain. CT with oral contrast advised Objective - Vital Signs Vital signs: Vital Signs Temp 97.7 F 08/17/21 09:35 Pulse 80 08/17/21 09:35 Resp 16 08/17/21 09:35 BP 92/55 08/17/21 09:35 Pulse Ox 95 08/17/21 09:35 Intake & Output 08/16/21 08/17/21 08/17/21 18:59 06:59 18:59 Intake Total 620 470 Output Total 1225 Balance -605 470 Intake: IV 200 Intake, IV Titration 350 Amount Sodium Chloride 0.9% 1, 350 000 ml @ 100 mls/hr IV . Q10H [facility] Rx#:[id number] Oral 420 120 Output: Urine 1225 Other: Voiding Method Urinal Urinal Urinal Diaper Diaper # Voids 1 2 # Bowel Movements 1 - Labs CBC & Chem 7: 08/17/21 07:51 08/17/21 07:51 Labs: Abnormal Lab Results - Last 24 Hours (Table) 08/17/21 08/17/21 Range/Units 07:51 07:51 RBC 2.75 L (4.30-5.90) m/uL Hgb 8.8 L (13.0-17.5) gm/dL Hct 27.7 L (39.0-53.0) % MCV 100.9 H (80.0-100.0) fL RDW 16.8 H (11.5-15.5) % Plt Count 117 L D (150-450) k/uL Lymphocytes # (Manual) 0.34 L (1.0-4.8) k/uL Metamyelocytes # (Man) 0.10 H (0) k/uL Myelocytes # (Manual) 0.20 H (0) k/uL Nucleated RBCs 1 H (0-0) /100 WBC Creatinine 1.43 H (0.66-1.25) mg/dL Microbiology - Last 24 Hours (Table) 08/16/21 12:00 Blood Culture Gram Stain - Preliminary Blood 08/16/21 15:15 Gram Stain - Preliminary Groin Wound Culture - Preliminary 08/16/21 12:00 Blood Culture - Final Blood 08/16/21 15:15 Catheter Tip Culture - Preliminary Picc Line 08/16/21 13:25 Blood Culture Gram Stain - Preliminary Blood 08/16/21 13:25 Blood Culture - Final Blood Assessment and Plan (1) Morbid (severe) obesity due to excess calories Current Visit: Yes Status: Acute Code(s): E66.01 - MORBID (SEVERE) OBESITY DUE TO EXCESS CALORIES SNOMED Code(s): 793770516 (2) BMI 35.0-35.9,adult Current Visit: Yes Status: Acute Code(s): Z68.35 - BODY MASS INDEX [BMI] 35.0-35.9, ADULT SNOMED Code(s): 757280794 (3) Pacemaker complications Current Visit: Yes Status: Acute Code(s): T82.9XXA - UNSP COMP OF CARDIAC AND VASCULAR PROSTH DEV/GRFT, INIT SNOMED Code(s): 289349908 (4) Atrial fibrillation Current Visit: Yes Status: Acute Code(s): I48.91 - UNSPECIFIED ATRIAL FIBRILLATION SNOMED Code(s): 60561877 (5) GI bleed Current Visit: Yes Status: Acute Code(s): K92.2 - GASTROINTESTINAL HEMORRHAGE, UNSPECIFIED SNOMED Code(s): 93217672 (6) Hematochezia Current Visit: Yes Status: Acute Code(s): K92.1 - MELENA SNOMED Code(s): 828793723 (7) Hypotension Current Visit: Yes Status: Acute Code(s): I95.9 - HYPOTENSION, UNSPECIFIED SNOMED Code(s): 74240148 (8) Melena Current Visit: Yes Status: Acute Code(s): K92.1 - MELENA SNOMED Code(s): 3929405 (9) Rapid atrial fibrillation Current Visit: No Status: Acute Code(s): I48.91 - UNSPECIFIED ATRIAL FIBRILLATION SNOMED Code(s): 499776993 (10) Hemorrhage of sigmoid colon due to diverticulosis Current Visit: Yes Status: Acute Code(s): K57.31 - DVRTCLOS OF LG INT W/O PERFORATION OR ABSCESS W BLEEDING SNOMED Code(s): 1826143326582129 (11) Small intestinal hemorrhage Current Visit: Yes Status: Acute Code(s): K92.2 - GASTROINTESTINAL HEMORRHAGE, UNSPECIFIED SNOMED Code(s): 14833059
--- NOTE | 2021-08-17 12:22 | P.PN ---
Subjective Progress Note Date: 08/17/21 HISTORY OF PRESENT ILLNESS: This is a pleasant 71-year-old male past medical history significant for coronary artery disease status post stent placement to the mid and proximal circ umflex, persistent atrial fibrillation on long-term anticoagulation, hypertension, dyslipidemia, chronic kidney disease, ventricular arrhythmias (PVCs and NSVT), and obstructive sleep apnea. He follows in the office with Dr. Fields, underwent biventricular pacemaker implantation 07/13/2021 for management of persistent A. fib with RVR. Patient had developed hematoma at the site which required separate wound closure and now noticed has significant ecchymosis to the area. Patient was brought into the hospital due to hematochezia status post transfusion of 2 units packed RBCs and 2 units of fresh frozen plasma on 08/11. Dr. Mccullough is planning for EGD tomorrow. Patient went into A. fib with RVR last evening and was started on amiodarone drip. This morning, 18 was called for suspected V. tach but no bedside states cardiac strips were obtained and at that time, patient was started on Lopressor 25 mg twice daily. Upon review of cardiac monitoring, it appears that patient have A. fib with RVR. We will have his pacemaker check done today. DIAGNOSTICS EKG reveals atrial fibrillation heart rate 99 Telemetry tracings indicate atrial fibrillation with rapid ventricular response HR 120-150s Chest xray reveals mild pleural reaction and atelectasis right lung base without change. No heart failure. Laboratory studies: WBC 8.5, hemoglobin 9.2, platelet count 81. BUN 55 and creatinine 1.9. Magnesium 1.7. AST 64. Troponins 0.044 and 0.035. Carotid virus PCR not detected. Current home cardiac medications include amiodarone 100 mg daily, eliquis 5 mg twice daily, Lipitor 80 mg daily, Lasix 60 mg daily, Toprol-XL 50 mg daily at bedtime and 25 mg daily in the morning, Aldactone 25 mg daily Echocardiogram revealed an EF of 30-35%, LA severely dilated, mild mitral regurgitation, mild tricuspid practitioner note mild pulmonary hypertension. 08/15/2021 Patient examined this morning at the bedside. He denies chest pain or pressure. Denies SOB. Telemetry reveals atrial fibrillation. Eliquis remains on hold. He is scheduled for colonoscopy tomorrow. Echocardiogram completed revealing ejection fraction 40-45%, mild aortic regurgitation, mild mitral regurgitation, mild tricuspid regurgitation, and moderate pulmonary hypertension. 08/16/2021 Patient examined this morning at the bedside. Patient denies chest pain or pressure. He denies shortness of breath. He continues to have lower extremity edema. He is on IV Lasix 40 mg every 12 hours. Patient is scheduled to undergo colonoscopy today. Patient remains in atrial fibrillation with heart rates into the 130s with exertion. 08/17/2021 Patient examined this morning the bedside. He underwent colonoscopy revealing severe diverticulosis with recent bleeding, internal hemorrhoids with recent inflammation, and transverse colon adenomas. General surgery recommends not resuming anticoagulation due to high risk for bleeding. The patient currently denies chest pain or pressure. He denies shortness of breath. Blood pressure 101/70. Heart rate is in the 80s to 90s. PHYSICAL EXAM: VITAL SIGNS: Reviewed. GENERAL: Well-developed in no acute distress. NECK: Supple. No JVD or thyromegaly LUNGS: Respirations even and unlabored. Lungs essentially clear to auscultation bilaterally. HEART: Irregular rate and rhythm. S1 and S2 heard. Systolic murmur noted. EXTREMITIES: Normal range of motion. No clubbing or cyanosis. Peripheral pulses intact. 2+ lower extremity edema ASSESSMENT: Acute GI bleed Persistent atrial fibrillation with rapid ventricular response- on long-term anticoagulation Eliquis Chronic systolic heart failure Increased lower extremity edema secondary to Lasix being held secondary to borderline blood pressures Coronary artery disease status post stent placement to the mid and proximal circumflex History of hypertension Dyslipidemia Chronic kidney disease History of ventricular arrhythmias (PVCs and NSVT) Obstructive sleep apnea. PLAN: Continue current cardiac medications No anticoagulation per general surgery recommendations DC IV lasix. Begin oral lasix 40mg daily We will follow up on an as-needed basis. Please call with question or concerns. Nurse practitioner note has been reviewed by physician. Signing provider agrees with the documented findings, assessment, and plan of care. Objective - Vital Signs Vital signs: Vital Signs Temp 97.7 F 08/17/21 09:35 Pulse 80 08/17/21 09:35 Resp 16 08/17/21 09:35 BP 92/55 08/17/21 09:35 Pulse Ox 95 08/17/21 09:35 Intake & Output 08/16/21 08/17/21 08/17/21 18:59 06:59 18:59 Intake Total 620 1010 Output Total 1225 300 Balance -605 710 Intake: IV 200 Intake, IV Titration 350 Amount Sodium Chloride 0.9% 1, 350 000 ml @ 100 mls/hr IV . Q10H [facility] Rx#:[id number] Oral 420 660 Output: Urine 1225 300 Other: Voiding Method Urinal Urinal Urinal Diaper Diaper # Voids 1 2 1 # Bowel Movements 1 - Labs CBC & Chem 7: 08/17/21 07:51 08/17/21 07:51 Labs: Abnormal Lab Results - Last 24 Hours (Table) 08/17/21 08/17/21 Range/Units 07:51 07:51 RBC 2.75 L (4.30-5.90) m/uL Hgb 8.8 L (13.0-17.5) gm/dL Hct 27.7 L (39.0-53.0) % MCV 100.9 H (80.0-100.0) fL RDW 16.8 H (11.5-15.5) % Plt Count 117 L D (150-450) k/uL Lymphocytes # (Manual) 0.34 L (1.0-4.8) k/uL Metamyelocytes # (Man) 0.10 H (0) k/uL Myelocytes # (Manual) 0.20 H (0) k/uL Nucleated RBCs 1 H (0-0) /100 WBC Creatinine 1.43 H (0.66-1.25) mg/dL Microbiology - Last 24 Hours (Table) 08/16/21 12:00 Blood Culture Gram Stain - Preliminary Blood 08/16/21 15:15 Gram Stain - Preliminary Groin Wound Culture - Preliminary 08/16/21 12:00 Blood Culture - Final Blood 08/16/21 15:15 Catheter Tip Culture - Preliminary Picc Line 08/16/21 13:25 Blood Culture Gram Stain - Preliminary Blood 08/16/21 13:25 Blood Culture - Final Blood
--- NOTE | 2021-08-17 14:11 | CT ---
EXAMINATION TYPE: CT abdomen pelvis wo con DATE OF EXAM: 08/17/2021 COMPARISON: CT dated 02 August 2020 HISTORY: Abdominal pain. CT DLP: 2711.4 mGycm Automated exposure control for dose reduction was used. TECHNIQUE: Helical acquisition of images was performed from the lung bases through the pelvis. Oral contrast was given. No IV contrast was administered. FINDINGS: Unremarkable incompletely distended stomach, duodenum and small bowel with no evidence of bowel obstr uction. Colonic diverticulosis most evident involving the sigmoid colon and to a lesser extent the de scending colon. The left side of the abdomen is not completely included in the [id number]. Normal appendix. No definite hepatic focal lesion by this nonenhanced CT scan. Previous cholecystectomy. Unremarkable unenhanced CT appearance of the spleen and adrenals. Fatty infiltration of the pancreas. Atrophic rig ht kidney demonstrating multiple cysts without gross suspicious feature. The left kidney also demonst rates multiple variable sized cysts without suspicious feature. No hydroureter or hydronephrosis. The urinary bladder and pelvic structures are obscured by artifacts from hip prosthesis. Arterial ath erosclerotic calcifications. No suspicious lymphadenopathy or sizable ascites. Anterior abdominal wal l skin thickening and subcutaneous fat infiltration more evident on the left lateral wall of the lowe r abdomen, please correlate clinically. This could be related to prolonged recumbency in the same pos ition. 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 Atrophy of the pelvic and upper thigh muscles. C ardiomegaly. Bilateral basal subsegmental pulmonary atelectasis, associated infection cannot be exclu ded. Small right pleural fluid. Bilateral total hip arthroplasty. Degenerative changes of the lower t horacic and lumbar spine. 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 IMPRESSION: Mild skin thickening and subcutaneous fat infiltration in the lower abdomen as described above, pleas e correlate clinically. No definite acute abnormality seen in the abdomen or the pelvis otherwise. Mu ltiple incidental findings as detailed above.
[2021-08-17] MEDS ORDERED: PIPERACILLIN-TAZOBACTAM 3.375 GM in SODIUM CHLORIDE 0.9% 100 ML IVPB SCH (16:00)
[2021-08-17] MEDS: ALPRAZolam 1 MG TAB PO SCH (21:35)
--- NOTE | 2021-08-17 22:47 | P.CONS ---
History of Present Illness - Reason for Consult Consult date: 08/17/21 bacteremia Requesting physician: Rae Allen - Chief Complaint drainage from his central line x 1 day - History of Present Illness History of Present Illness : Patient is 71-year-old male with multiple comorbidities in this patient with history of atrial fibrillation with a recent pacemaker placement hypertension heart failure chronic kidney disease presented to the hospital 6 days ago for evaluation of bloody bowel movement for the last few weeks the patient symptom progressively getting worse and today's blood results from the hospital the patient did have a gross blood in the stool that concerned him and the patient was complaining of lightheadedness associated with this no abdominal pain and no vomiting patient also have some associated right l ower extremity and did have some bleeding from mid to with the center the patient has been evaluated and subsequently admitted to the hospital patient did not have any fever during this hospital stay and is currently breathing comfortably on room air patient did have white count of 12.1 admission mcdaniels bsequent white count has normalized did have a elevated BUN and creatinine his kidney function has improved though Covid testing was negative patient was noticed to have purulent drainage coming from his femoral central line in the right groin blood cultures ordered peripherally as well as from the line and the tip has been sent for the culture patient was started on vancomycin blood cultures now coming back positive with gram-positive cocci as well as gram- negative catheter cultures pending from the right groin culture showing gram- negative infectious disease was consulted for further management of antibiotic therapy Review of system: CONSTITUTIONAL: Positive for weakness denies high-grade fever. EYES: No complaint. ENT: No complaint. RESPIRATORY: Shortness of breath occasional cough. CARDIOVASCULAR: No complaint. GENITOURINARY: No complaint. GASTROINTESTINAL: As per history of present illness. MUSCULOSKELETAL: No complaint. INTEGUMENTARY : No complaint. PSYCHOLOGIC: No complaint. ENDOCRINE: No complaint. NEUROLOGIC: No complaint. Past medical history : Reviewed, documented below Past surgical history : Reviewed, documented below Social history: Reviewed, documented below Medications: Reviewed, as documented below EXAMINATION: Vital sigans= Reviewed and documented below GENERAL DESCRIPTION: Elderly male lying in bed, no distress. No tachypnea or accessory muscle of respiration use. HEENT: Shows Pallor , no scleral icterus. Oral mucous membrane is dry. NECK: Trachea central, no thyromegaly. LUNGS: Unlabored breathing. Decreased breath sound at the base. No wheeze or crackle. HEART: S1, S2, regular rate and rhythm. ABDOMEN: Soft, no tenderness , guarding or rigidity EXTREMITIES: Legs are currently wrapped per wound care and is to be changed Saturday and cannot be changed today per the nursing staff SKIN: No rash, no masses palpable. Did have bruising to the upper chest wall NEUROLOGICAL: The patient is awake, alert, oriented x3, mood and affect normal. LABS AND RADIOLOGY: Reviewed results see below Assessment : 1-patient with a polymicrobial bacteremia in this patient showing Klebsiella Enterococcus as well as staph epi high clinical suspicious for any central line infection in the right groin which has been discontinued yesterday with a catheter cultures pending however the right groin wound cultures are showing gram-negative bacilli, patient recently did have a pacemaker placement and high clinical suspicious for secondary seeding of those wires Plan: 1-blood cultures will be repeated to document clearance of bacteremia 2-vancomycin pharmacy to dose target trough of 15 while watching kidney function and vancomycin trough closely 3-Rocephin 2 g daily We will follow on clinical condition and cultures to further adjust medication if needed Thank you for this consultation we will follow the patient along with you Past Medical History Past Medical History: Atrial Fibrillation, Eye Disorder, Hyperlipidemia, Hypertension, Sleep Apnea/CPAP/BIPAP Additional Past Medical History / Comment(s): Paroxysmal Afib, CKD stage III, nephrolithiasis, bilateral glaucoma, BILAT CATARACTS, 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 SEE DR. PAYNE'S H & P Last Myocardial Infarction Date:: 2010 History of Any Multi-Drug Resistant Organisms: None Reported Past Surgical History: Cholecystectomy, Heart Catheterization With Stent, Joint Replacement, Orthopedic Surgery, Tonsillectomy Additional Past Surgical History / Comment(s): BILAT TKA AND DANIELLE, BILAT KNEE SCOPES, COLONOSCOPIES, CARDIOVERSION 04/03/21, pacemaker placed 07/15/21 Past Anesthesia/Blood Transfusion Reactions: No Reported Reaction Date of Last Stent Placement:: 2010 Past Psychological History: No Psychological Hx Reported Smoking Status: Never smoker Past Alcohol Use History: Occasional Past Drug Use History: None Reported - Past Family History Mother Family Medical History: Cancer Additional Family Medical History / Comment(s): Mother of breast cancer at the age of 79yrs. Father Family Medical History: Coronary Artery Disease (CAD) Additional Family Medical History / Comment(s): Father had heart problems. He had coronary valve replacement. He at the age of 83 yrs. Medications and Allergies Home Medications Medication Instructions Recorded Confirmed Type ALPRAZolam [Xanax] 1 mg PO HS 04/15/15 08/11/21 History Apixaban [Eliquis] 5 mg PO BID 04/15/15 08/11/21 History Aspirin [Adult Low Dose Aspirin EC] 81 mg PO DAILY 04/09/16 08/11/21 History Latanoprost Ophth [Xalatan 0.005%] 1 drops BOTH EYES HS ml 04/13/16 08/11/21 Rx allopurinoL [Zyloprim] 100 mg PO DAILY 05/07/19 08/11/21 History Acetaminophen-Codeine 300-30mg 1 tab PO Q6H PRN 01/20/21 08/11/21 History [Tylenol w/codeine #3] Atorvastatin [Lipitor] 80 mg PO DAILY 02/20/21 08/11/21 History Pantoprazole Sodium [Protonix] 40 mg PO DAILY 02/20/21 08/11/21 History Spironolactone [Aldactone] 25 mg PO DAILY 30 Days #30 tab 02/24/21 08/11/21 Rx Furosemide [Lasix] 60 mg PO DAILY 03/30/21 08/11/21 History Metoprolol Succinate (ER) [Toprol 25 mg PO DAILY #90 tab 04/03/21 08/11/21 Rx XL] Amiodarone HCl [Pacerone] 100 mg PO DAILY 08/11/21 08/11/21 History Ferrous Sulfate [Feosol] 325 mg PO DAILY 08/11/21 08/11/21 History Menthol-Zinc Oxide Oint 1 applic TOPICAL BID PRN 08/11/21 08/11/21 History [Calmoseptine Oint] Metoclopramide [Reglan] 5 mg PO W/BRKFST 08/11/21 08/11/21 History Metoprolol Succinate [Toprol XL] 50 mg PO HS 08/11/21 08/11/21 History SILVER sulfADIAZINE CREAM 1 applic TOPICAL DAILY PRN 08/11/21 08/11/21 History [Silvadene Cream] Allergies Allergy/AdvReac Type Severity Reaction Status Date / Time No Known Allergies Allergy Verified 08/11/21 22:01 Physical Exam Vitals: Vital Signs Temp Pulse Resp BP BP Pulse Ox 08/17/21 09:35 97.7 F 80 16 92/55 95 08/17/21 04:00 97.5 F L 80 18 101/70 95 08/16/21 23:25 98.2 F 97 18 101/63 96 08/16/21 19:56 97.8 F 107 H 18 106/62 97 08/16/21 15:14 97.8 F 103 H 18 107/61 93 L 08/16/21 14:00 103 H 18 08/16/21 11:27 98.2 F 100 18 92/61 99 Intake and Output 08/16/21 08/17/21 08/17/21 22:59 06:59 14:59 Intake Total 120 Output Total 325 Balance -325 120 Intake: Oral 120 Output: Urine 325 Other: Voiding Method Urinal Urinal Urinal Diaper Diaper # Voids 1 2 Results CBC & Chem 7: 08/17/21 07:51 08/17/21 07:51 Labs: Abnormal Lab Results - Last 24 Hours (Table) 08/17/21 08/17/21 Range/Units 07:51 07:51 RBC 2.75 L (4.30-5.90) m/uL Hgb 8.8 L (13.0-17.5) gm/dL Hct 27.7 L (39.0-53.0) % MCV 100.9 H (80.0-100.0) fL RDW 16.8 H (11.5-15.5) % Plt Count 117 L D (150-450) k/uL Creatinine 1.43 H (0.66-1.25) mg/dL Microbiology - Last 24 Hours (Table) 08/16/21 12:00 Blood Culture Gram Stain - Preliminary Blood 08/16/21 15:15 Gram Stain - Preliminary Groin Wound Culture - Preliminary 08/16/21 12:00 Blood Culture - Final Blood 08/16/21 15:15 Catheter Tip Culture - Preliminary Picc Line 08/16/21 13:25 Blood Culture Gram Stain - Preliminary Blood 08/16/21 13:25 Blood Culture - Final Blood
[2021-08-18] MEDS: HYDROcodone/APAP 5-325MG 1 EACH TAB PO PRN ×4 (04:20→21:32)
[2021-08-18] MEDS: SODIUM CHLORIDE 0.9% 1,000 ML IV SCH ×3 (04:21→23:43)
[2021-08-18 08:22] LABS: Albumin 2.4 g/dL (3.5-5.0); Bilirubin, Delta 0.2 mg/dL (0.0-0.2); Bilirubin,Unconjugated 0.4 mg/dL (0.0-1.1); Calcium 7.7 mg/dL (8.4-10.2); Magnesium 1.7 mg/dL (1.6-2.3); Potassium 3.4 mmol/L (3.5-5.1); Total Bilirubin 0.6 mg/dL (0.2-1.3); Total Protein 4.9 g/dL (6.3-8.2)
--- NOTE | 2021-08-18 10:02 | P.PN ---
Subjective Progress Note Date: 08/18/21 Pt reports significant improvement today. Feels much better. Still reporting pain in right shoulder and left arm. BCx growing klebsiella and enterococcus. On vanc/ceftriaxone, ID following. Objective - Vital Signs Vital signs: Vital Signs Temp 98.3 F 08/18/21 04:28 Pulse 94 08/18/21 04:28 Resp 16 08/18/21 04:28 BP 98/68 08/18/21 04:28 Pulse Ox 97 08/18/21 04:28 Intake & Output 08/17/21 08/18/21 08/18/21 18:59 06:59 18:59 Intake Total 1250 240 Output Total 650 460 Balance 600 -460 240 Weight 128.5 kg Intake: Intake, IV Titration 350 Amount Sodium Chloride 0.9% 1, 350 000 ml @ 100 mls/hr IV . Q10H [facility] Rx#:[id number] Oral 900 240 Output: Urine 650 460 Other: Voiding Method Urinal Urinal Diaper # Voids 2 - Exam Gen: awake, alert HEENT: normocephalic, atraumatic, good hearing acuity, moist mucous membranes Resp: good air exchange, breathing comfortably with no accessory muscle use CVS: good distal perfusion x 4, RRR, no murmurs GI: soft, NTTP, ND : no SPT, no CVAT, esquivel catheter not present MSK: +pitting edema, no clubbing Neuro: non-focal, moving all extremities Psych: cooperative, euthymic mood - Labs CBC & Chem 7: 08/17/21 07:51 08/18/21 07:48 Labs: Abnormal Lab Results - Last 24 Hours (Table) 08/17/21 08/17/21 08/18/21 Range/Units 07:51 14:45 07:48 Lymphocytes # (Manual) 0.34 L (1.0-4.8) k/uL Metamyelocytes # (Man) 0.10 H (0) k/uL Myelocytes # (Manual) 0.20 H (0) k/uL Nucleated RBCs 1 H (0-0) /100 WBC ESR (0-15) mm/hr Potassium 3.4 L (3.5-5.1) mmol/L Chloride 112 H (98-107) mmol/L BUN 22 H (9-20) mg/dL Creatinine 1.53 H (0.66-1.25) mg/dL Glucose 111 H (74-99) mg/dL Calcium 7.7 L (8.4-10.2) mg/dL C-Reactive Protein 14.1 H (<1.0) mg/dL Total Protein 4.9 L (6.3-8.2) g/dL Albumin 2.4 L (3.5-5.0) g/dL 08/18/21 Range/Units 07:48 Lymphocytes # (Manual) (1.0-4.8) k/uL Metamyelocytes # (Man) (0) k/uL Myelocytes # (Manual) (0) k/uL Nucleated RBCs (0-0) /100 WBC ESR 76 H (0-15) mm/hr Potassium (3.5-5.1) mmol/L Chloride (98-107) mmol/L BUN (9-20) mg/dL Creatinine (0.66-1.25) mg/dL Glucose (74-99) mg/dL Calcium (8.4-10.2) mg/dL C-Reactive Protein (<1.0) mg/dL Total Protein (6.3-8.2) g/dL Albumin (3.5-5.0) g/dL Microbiology - Last 24 Hours (Table) 08/16/21 15:15 Gram Stain - Preliminary Groin Wound Culture - Preliminary Gram Neg Bacilli 08/16/21 13:25 Blood Culture - Final Blood 08/16/21 13:25 Blood Culture Gram Stain - Preliminary Blood Blood Culture - Preliminary Klebsiella oxytoca Enterococcus faecalis 08/16/21 12:00 Blood Culture Gram Stain - Preliminary Blood Blood Culture - Preliminary Staphylococcus epidermidis Assessment and Plan Assessment: Acute GI bleeding Acute symptomatic anemia secondary to GI bleeding Monitor hemoglobin Blood transfusion, fresh frozen plasma transfusion Will permanently discontinue Eliquis Patient given kcentra and tranexamic surgery consultation Fall precautions Gen. surgery consultation, s/p Colonoscopy on 08/16, which showed severe sigmoid diverticulosis with recent bleeding and grade 3 internal hemorrhoids with recent inflammation EGD did not identify source of bleed, no gastritis. Reports colonoscopy 2 years ago is unremarkable Left Foot Cellulitis Right Central Line Associated Blood Stream Infection cefazolin 1g q8h started 08/15, then broadened to vancomycin on 08/16, then added ceftriaxone on 08/17 femoral central line removed, tip Cx pending Follow for identification and sensitivities: -Blood Cx 08/16 - staph epidermidis, Klebsiella, enterococcus -Blood Cx 08/18 - pending -Wound Cx 08/16 - growing GNRs -Catheter tip 08/16 - NGTD Bilateral skin changes of the legs due to venous stasis ulcers Paroxysmal A. fib status post pacemaker on Eliquis CK D Hypertension History of CAD status post stents 10 years ago Resume home medications Hold ASPIRIN and Eliquis LE duplex of left leg, neg for DVT wound care consult Full code DVT prophylaxis mechanical GI prophylaxis Protonix Anticipated length of stay more than 2 midnights
[2021-08-18] MEDS: allopurinoL 100 MG TAB PO SCH (10:08)
[2021-08-18] MEDS: FUROSEMIDE 40 MG TAB PO SCH (10:08)
[2021-08-18] MEDS: AMIODARONE 200 MG TAB PO SCH ×2 (10:08→21:32)
[2021-08-18] MEDS: ATORVASTATIN 80 MG TAB PO SCH (10:08)
[2021-08-18] MEDS: METOPROLOL TARTRATE 25 MG TAB PO SCH ×3 (10:08→21:31)
[2021-08-18] MEDS: PANTOPRAZOLE 40 MG/10 ML VIAL IV SCH (10:08)
[2021-08-18 12:14] LABS: Anisocytosis Slight; Basophils % (A) 0 %; Eosinophils % (A) 1 %; HGB 8.4 gm/dL (13.0-17.5); Hypochromasia Moderate; Lymphocytes # (A) 0.5 k/uL (1.0-4.8); Lymphocytes % (A) 8 %; MCH 32.4 pg (25.0-35.0); MCHC 32.3 g/dL (31.0-37.0); MCV 100.3 fL (80.0-100.0); Macrocytosis Slight; Mean Platelet Volume 8.8; Monocytes # (A) 0.3 k/uL (0-1.0); Monocytes % (A) 5 %; Neutrophils # (A) 4.9 k/uL (1.3-7.7); Neutrophils % (A) 84 %; Platelet Count 104 k/uL (150-450); Poikilocytosis Slight; RBC 2.59 m/uL (4.30-5.90); RDW 16.9 % (11.5-15.5); WBC 5.8 k/uL (3.8-10.6)
--- NOTE | 2021-08-18 15:26 | P.PN ---
Subjective Progress Note Date: 08/18/21 CHIEF COMPLAINT: Hematochezia HISTORY OF PRESENT ILLNESS: The patient is a 71-year-old male status post p acemaker implantation over 2 weeks ago. He has been on blood thinners and has generalized malaise. He was admitted due to acute large GI bleed with moderate drop in Hgb from 15.6 baseline down to 9.4. Patient status post EGD that revealed diaphragmatic hiatal hernia, Martinez's esophagus and erosive esophagitis. Patient sitting up at bedside chair. Reports no further blood in his stools. Patient reports decrease in abdominal pain. patient does complete of upset stomach. The denies any vomiting. Tolerating regular diet. Computed tomography scan of abdomen and pelvis shows mild skin thickening and subcutaneous fat infiltration the lower abdomen. No acute abnormality seen. Afebrile. WBC 5.8 hemoglobin did drop from 8.8-8.4 PHYSICAL EXAM: VITAL SIGNS: Reviewed GENERAL: Well-developed in no acute distress. HEENT: No sclera icterus. Extraocular movements grossly intact. Moist buccal mucosa. Head is atraumatic, normocephalic. Hears conversational speech. No nasal drainage. NECK: Supple without lymphadenopathy. CHEST: Non-labored respirations and equal bilateral excursions. CARDIOVASCULAR: Palpable 2+ radial pulses. ABDOMEN: Soft. obese. upper abdomen tenderness with palpation MUSCULOSKELETAL: No clubbing or cyanosis. NEUROLOGIC: No focal or lateralizing signs. Cranial nerves II through XII grossly intact. PSYCH: Appropriate affect. Alert and oriented to person, place and time. SKIN: Well perfused. Good skin turgor. ASSESSMENT: 1. Acute GI bleed 2. Gastroesophageal reflux disease 3. Diaphragmatic hiatal hernia 4. Martinez's esophagus 5. Atrial fibrillation had been on the Eliquis 6. Chronic systolic heart failure 7. acute on Chronic kidney disease PLAN: -At this time, lower endoscopy findings consistent with bleeding diverticulosis including small bowel bleed. Patient's extremely high risk for rebleed with anticoagulants. At this time, patient not felt to be a candidate for further anticoagulation due to high risk for bleeding. -Continue supportive care -Continue to monitor hemoglobin -continue PPI Physician Phosphoric Acid Supervisor note has been reviewed by physician. Signing provider agrees with the documented findings, assessment, and plan of care. Objective - Vital Signs Vital signs: Vital Signs Temp 98.2 F 08/18/21 12:59 Pulse 71 02/25/22 12:59 Resp 19 08/18/21 12:59 BP 91/48 08/18/21 12:59 Pulse Ox 99 08/18/21 12:59 Intake & Output 08/17/21 08/18/21 08/18/21 18:59 06:59 18:59 Intake Total 1250 930 Output Total 650 460 350 Balance 600 -460 580 Weight 128.5 kg Intake: Intake, IV Titration 350 Amount Sodium Chloride 0.9% 1, 350 000 ml @ 100 mls/hr IV . Q10H [facility] Rx#:[id number] Oral 900 930 Output: Urine 650 460 350 Other: Voiding Method Urinal Urinal Urinal Diaper # Voids 2 - Labs CBC & Chem 7: 08/18/21 12:00 08/18/21 07:48 Labs: Abnormal Lab Results - Last 24 Hours (Table) 08/17/21 08/18/21 08/18/21 Range/Units 14:45 07:48 07:48 RBC (4.30-5.90) m/uL Hgb (13.0-17.5) gm/dL Hct (39.0-53.0) % MCV (80.0-100.0) fL RDW (11.5-15.5) % Plt Count (150-450) k/uL Lymphocytes # (1.0-4.8) k/uL ESR (0-15) mm/hr Potassium 3.4 L (3.5-5.1) mmol/L Chloride 112 H (98-107) mmol/L BUN 22 H (9-20) mg/dL Creatinine 1.53 H (0.66-1.25) mg/dL Glucose 111 H (74-99) mg/dL Calcium 7.7 L (8.4-10.2) mg/dL C-Reactive Protein 14.1 H (<1.0) mg/dL Total Protein 4.9 L (6.3-8.2) g/dL Albumin 2.4 L (3.5-5.0) g/dL Procalcitonin 0.25 H (0.02-0.09) ng/mL 08/18/21 08/18/21 Range/Units 07:48 12:00 RBC 2.59 L (4.30-5.90) m/uL Hgb 8.4 L (13.0-17.5) gm/dL Hct 26.0 L (39.0-53.0) % MCV 100.3 H (80.0-100.0) fL RDW 16.9 H (11.5-15.5) % Plt Count 104 L (150-450) k/uL Lymphocytes # 0.5 L (1.0-4.8) k/uL ESR 76 H (0-15) mm/hr Potassium (3.5-5.1) mmol/L Chloride (98-107) mmol/L BUN (9-20) mg/dL Creatinine (0.66-1.25) mg/dL Glucose (74-99) mg/dL Calcium (8.4-10.2) mg/dL C-Reactive Protein (<1.0) mg/dL Total Protein (6.3-8.2) g/dL Albumin (3.5-5.0) g/dL Procalcitonin (0.02-0.09) ng/mL Microbiology - Last 24 Hours (Table) 08/16/21 13:25 Blood Culture Gram Stain - Preliminary Blood Blood Culture - Preliminary Klebsiella oxytoca Enterococcus faecalis Proteus Species 08/16/21 12:00 Blood Culture Gram Stain - Final Blood Blood Culture - Final Staphylococcus epidermidis 08/16/21 15:15 Gram Stain - Preliminary Groin Wound Culture - Preliminary Gram Neg Bacilli 08/16/21 13:25 Blood Culture - Final Blood
[2021-08-18] MEDS: VANCOMYCIN 2,000 MG in SODIUM CHLORIDE 0.9% 500 ML 500 ML IVPB SCH (16:19)
[2021-08-18] MEDS: ALPRAZolam 1 MG TAB PO SCH (21:31)
--- NOTE | 2021-08-18 22:36 | P.PN ---
Subjective Progress Note Date: 08/18/21 Principal diagnosis: Bacteremia Patient is a 71-year-old male admitted to the hospital about a week ago for evaluation of bleeding per rectum and weakness the patient did have a right groin central line with the patient was noticed to have some purulent drainage which has been discontinued blood culture positive with multiple pathogen. On today's evaluation is 08/18/2021, patient denies having any fever or chills, the patient experienced very comfortably no chest pain or cough no abdominal pain no diarrhea Objective - Vital Signs Vital signs: Vital Signs Temp 98.2 F 08/18/21 12:59 Pulse 71 08/18/21 12:59 Resp 19 08/18/21 12:59 BP 91/48 08/18/21 12:59 Pulse Ox 99 08/18/21 12:59 Intake & Output 08/17/21 08/18/21 08/18/21 18:59 06:59 18:59 Intake Total 1250 930 Output Total 650 460 350 Balance 600 -460 580 Weight 128.5 kg Intake: Intake, IV Titration 350 Amount Sodium Chloride 0.9% 1, 350 000 ml @ 100 mls/hr IV . Q10H [facility] Rx#:[id number] Oral 900 930 Output: Urine 650 460 350 Other: Voiding Method Urinal Urinal Urinal Diaper # Voids 2 - Exam GENERAL DESCRIPTION: An elderly male lying in bed in no distress RESPIRATORY SYSTEM: Unlabored breathing , decreased breath sounds at bases HEART: S1 S2 regular rate and rhythm , ABDOMEN: Soft , no tenderness EXTREMITIES: Bilateral legs are currently wrapped in Edis wrap, there is No drainage dressing - Labs CBC & Chem 7: 08/18/21 12:00 08/18/21 07:48 Labs: Abnormal Lab Results - Last 24 Hours (Table) 08/17/21 08/18/21 08/18/21 Range/Units 14:45 07:48 07:48 RBC (4.30-5.90) m/uL Hgb (13.0-17.5) gm/dL Hct (39.0-53.0) % MCV (80.0-100.0) fL RDW (11.5-15.5) % Plt Count (150-450) k/uL Lymphocytes # (1.0-4.8) k/uL ESR (0-15) mm/hr Potassium 3.4 L (3.5-5.1) mmol/L Chloride 112 H (98-107) mmol/L BUN 22 H (9-20) mg/dL Creatinine 1.53 H (0.66-1.25) mg/dL Glucose 111 H (74-99) mg/dL Calcium 7.7 L (8.4-10.2) mg/dL C-Reactive Protein 14.1 H (<1.0) mg/dL Total Protein 4.9 L (6.3-8.2) g/dL Albumin 2.4 L (3.5-5.0) g/dL Procalcitonin 0.25 H (0.02-0.09) ng/mL 08/18/21 08/18/21 Range/Units 07:48 12:00 RBC 2.59 L (4.30-5.90) m/uL Hgb 8.4 L (13.0-17.5) gm/dL Hct 26.0 L (39.0-53.0) % MCV 100.3 H (80.0-100.0) fL RDW 16.9 H (11.5-15.5) % Plt Count 104 L (150-450) k/uL Lymphocytes # 0.5 L (1.0-4.8) k/uL ESR 76 H (0-15) mm/hr Potassium (3.5-5.1) mmol/L Chloride (98-107) mmol/L BUN (9-20) mg/dL Creatinine (0.66-1.25) mg/dL Glucose (74-99) mg/dL Calcium (8.4-10.2) mg/dL C-Reactive Protein (<1.0) mg/dL Total Protein (6.3-8.2) g/dL Albumin (3.5-5.0) g/dL Procalcitonin (0.02-0.09) ng/mL Microbiology - Last 24 Hours (Table) 08/16/21 13:25 Blood Culture Gram Stain - Preliminary Blood Blood Culture - Preliminary Klebsiella oxytoca Enterococcus faecalis Proteus Species 08/16/21 12:00 Blood Culture Gram Stain - Final Blood Blood Culture - Final Staphylococcus epidermidis 08/16/21 15:15 Gram Stain - Preliminary Groin Wound Culture - Preliminary Gram Neg Bacilli 08/16/21 13:25 Blood Culture - Final Blood Assessment and Plan (1) Bacteremia Current Visit: Yes Status: Acute Code(s): R78.81 - BACTEREMIA SNOMED Code(s): 3845265 Plan: Patient with polymicrobial bacteremia concern for right femoral central line which has been discontinued, She will consult pending blood culture positive for enterococcus Klebsiella and Proteus, groin culture with Proteus patient is covered with vancomycin and Rocephin to continue all waiting for the culture finalized Time with Patient: Less than 30
[2021-08-19] MEDS: HYDROcodone/APAP 5-325MG 1 EACH TAB PO PRN ×5 (01:11→20:45)
[2021-08-19] MEDS ORDERED: VANCOMYCIN TROUGH DUE 1 EACH MISC MISCELLANE ONE (07:00)
[2021-08-19] MEDS: FUROSEMIDE 40 MG TAB PO SCH (08:47)
[2021-08-19] MEDS: PANTOPRAZOLE 40 MG/10 ML VIAL IV SCH (08:47)
[2021-08-19] MEDS: ATORVASTATIN 80 MG TAB PO SCH (08:49)
[2021-08-19] MEDS: allopurinoL 100 MG TAB PO SCH (08:49)
[2021-08-19] MEDS: AMIODARONE 200 MG TAB PO SCH ×2 (08:49→20:46)
[2021-08-19] MEDS: METOPROLOL TARTRATE 25 MG TAB PO SCH ×3 (08:51→20:46)
[2021-08-19] MEDS: VANCOMYCIN 2,000 MG in SODIUM CHLORIDE 0.9% 500 ML 500 ML IVPB SCH (09:32)
--- NOTE | 2021-08-19 10:53 | P.PN ---
Subjective Progress Note Date: 08/19/21 Principal diagnosis: GI bleeding Patient feels tired. Has not had a bowel movement. No nausea or vomiting. Tolerating regular diet. Objective - Vital Signs Vital signs: Vital Signs Temp 98.4 F 08/19/21 08:48 Pulse 100 08/19/21 08:48 Resp 17 08/19/21 08:48 BP 100/55 08/19/21 08:48 Pulse Ox 99 08/19/21 08:48 Intake & Output 08/18/21 08/19/21 08/19/21 18:59 06:59 18:59 Intake Total 930 240 Output Total 350 525 Balance 580 -525 240 Intake: Oral 930 240 Output: Urine 350 525 Other: Voiding Method Urinal Urinal - Exam Abdomen: Soft, nontender, nondistended - Labs CBC & Chem 7: 08/18/21 12:00 08/19/21 08:37 Labs: Abnormal Lab Results - Last 24 Hours (Table) 08/18/21 08/18/21 08/19/21 Range/Units 07:48 12:00 08:37 RBC 2.59 L (4.30-5.90) m/uL Hgb 8.4 L (13.0-17.5) gm/dL Hct 26.0 L (39.0-53.0) % MCV 100.3 H (80.0-100.0) fL RDW 16.9 H (11.5-15.5) % Plt Count 104 L (150-450) k/uL Lymphocytes # 0.5 L (1.0-4.8) k/uL Creatinine 1.54 H (0.66-1.25) mg/dL Procalcitonin 0.25 H (0.02-0.09) ng/mL Microbiology - Last 24 Hours (Table) 08/18/21 07:48 Blood Culture - Preliminary Blood No Growth after 24 hours 08/16/21 15:15 Gram Stain - Final Groin Wound Culture - Final Proteus mirabilis 08/17/21 14:45 Blood Culture - Preliminary Blood No Growth after 24 hours 08/16/21 13:25 Blood Culture Gram Stain - Preliminary Blood Blood Culture - Preliminary Klebsiella oxytoca Enterococcus faecalis Proteus Species 08/16/21 12:00 Blood Culture Gram Stain - Final Blood Blood Culture - Final Staphylococcus epidermidis Assessment and Plan (1) GI bleed Narrative/Plan: Patient stable from our point of view. Await repeat hemoglobin. Continue regular diet. Continue physical therapy. Current Visit: Yes Status: Acute Code(s): K92.2 - GASTROINTESTINAL HEMOR RHAGE, UNSPECIFIED SNOMED Code(s): 25221383
[2021-08-19] MEDS: SODIUM CHLORIDE 0.9% 1,000 ML IV SCH (11:48)
--- NOTE | 2021-08-19 11:56 | P.PN ---
Subjective Progress Note Date: 08/19/21 Pt sitting in chair resting comfortably. BCx grew proteus in addition to enterococcus and klebsiella. On appropriate abx. Objective - Vital Signs Vital signs: Vital Signs Temp 98.4 F 08/19/21 08:48 Pulse 100 08/19/21 08:48 Resp 17 08/19/21 08:48 BP 100/55 08/19/21 08:48 Pulse Ox 99 08/19/21 08:48 Intake & Output 08/18/21 08/19/21 08/19/21 18:59 06:59 18:59 Intake Total 930 240 Output Total 350 525 Balance 580 -525 240 Intake: Oral 930 240 Output: Urine 350 525 Other: Voiding Method Urinal Urinal - Exam Gen: awake, alert HEENT: normocephalic, atraumatic, good hearing acuity, moist mucous membranes Resp: good air exchange, breathing comfortably with no accessory muscle use CVS: good distal perfusion x 4, RRR, no murmurs GI: soft, NTTP, ND : no SPT, no CVAT, esquivel catheter not present MSK: +pitting edema, no clubbing Neuro: non-focal, moving all extremities Psych: cooperative, euthymic mood - Labs CBC & Chem 7: 08/18/21 12:00 08/19/21 08:37 Labs: Abnormal Lab Results - Last 24 Hours (Table) 08/18/21 08/18/21 08/19/21 Range/Units 07:48 12:00 08:37 RBC 2.59 L (4.30-5.90) m/uL Hgb 8.4 L (13.0-17.5) gm/dL Hct 26.0 L (39.0-53.0) % MCV 100.3 H (80.0-100.0) fL RDW 16.9 H (11.5-15.5) % Plt Count 104 L (150-450) k/uL Lymphocytes # 0.5 L (1.0-4.8) k/uL Creatinine 1.54 H (0.66-1.25) mg/dL Procalcitonin 0.25 H (0.02-0.09) ng/mL Microbiology - Last 24 Hours (Table) 08/18/21 07:48 Blood Culture - Preliminary Blood No Growth after 24 hours 08/16/21 15:15 Gram Stain - Final Groin Wound Culture - Final Proteus mirabilis 08/17/21 14:45 Blood Culture - Preliminary Blood No Growth after 24 hours 08/16/21 13:25 Blood Culture Gram Stain - Preliminary Blood Blood Culture - Preliminary Klebsiella oxytoca Enterococcus faecalis Proteus Species 08/16/21 12:00 Blood Culture Gram Stain - Final Blood Blood Culture - Final Staphylococcus epidermidis Assessment and Plan Assessment: Acute GI bleeding Acute symptomatic anemia secondary to GI bleeding Monitor hemoglobin Blood transfusion, fresh frozen plasma transfusion Will permanently discontinue Eliquis Patient given kcentra and tranexamic surgery consultation Fall precautions Gen. surgery consultation, s/p Colonoscopy on 08/16, which showed severe sigmoid diverticulosis with recent bleeding and grade 3 internal hemorrhoids with recent inflammation EGD did not identify source of bleed, no gastritis. Reports colonoscopy 2 years ago is unremarkable Left Foot Cellulitis Right Central Line Associated Blood Stream Infection cefazolin 1g q8h started 08/15, then broadened to vancomycin on 08/16, then added ceftriaxone on 08/17 femoral central line removed, tip Cx pending Follow for identification and sensitivities: -Blood Cx 08/16 - staph epidermidis, Klebsiella, enterococcus, proteus -Blood Cx 08/18 - NGTD -Wound Cx 08/16 - proteus, pansensitive -Catheter tip 08/16 - NGTD Bilateral skin changes of the legs due to venous stasis ulcers Paroxysmal A. fib status post pacemaker on Eliquis CK D Hypertension History of CAD status post stents 10 years ago Resume home medications Hold ASPIRIN and Eliquis LE duplex of left leg, neg for DVT wound care consult Full code DVT prophylaxis mechanical GI prophylaxis Protonix Anticipated length of stay more than 2 midnights
--- NOTE | 2021-08-19 16:05 | P.PN ---
Subjective Progress Note Date: 08/19/21 Principal diagnosis: Bacteremia Patient is a 71-year-old male admitted to the hospital about a week ago for evaluation of bleeding per rectum and weakness the patient did have a right groin central line with the patient was noticed to have some purulent drainage which has been discontinued blood culture positive with multiple pathogen. On today's evaluation is 08/19/2021, patient remains to be afebrile, the patient is breathing comfortably on room air, the patient denies chest pain or cough no abdominal pain no diarrhea Objective - Vital Signs Vital signs: Vital Signs Temp 98.4 F 08/19/21 13:00 Pulse 79 08/19/21 13:00 Resp 17 08/19/21 13:00 BP 98/57 08/19/21 13:00 Pulse Ox 97 08/19/21 13:00 Intake & Output 08/18/21 08/19/21 08/19/21 18:59 06:59 18:59 Intake Total 930 480 Output Total 350 525 360 Balance 580 -525 120 Intake: Oral 930 480 Output: Urine 350 525 360 Other: Voiding Method Urinal Urinal # Bowel Movements 0 - Exam GENERAL DESCRIPTION: An elderly male lying in bed in no distress RESPIRATORY SYSTEM: Unlabored breathing , decreased breath sounds at bases HEART: S1 S2 regular rate and rhythm , ABDOMEN: Soft , no tenderness EXTREMITIES: Bilateral legs are currently wrapped in Edis wrap, there is No drainage dressing - Labs CBC & Chem 7: 08/18/21 12:00 08/19/21 08:37 Labs: Abnormal Lab Results - Last 24 Hours (Table) 08/19/21 Range/Units 08:37 Creatinine 1.54 H (0.66-1.25) mg/dL Microbiology - Last 24 Hours (Table) 08/16/21 13:25 Blood Culture Gram Stain - Preliminary Blood Blood Culture - Preliminary Klebsiella oxytoca Enterococcus faecalis Proteus mirabilis 08/18/21 07:48 Blood Culture - Preliminary Blood No Growth after 24 hours 08/16/21 15:15 Gram Stain - Final Groin Wound Culture - Final Proteus mirabilis 08/17/21 14:45 Blood Culture - Preliminary Blood No Growth after 24 hours 08/16/21 12:00 Blood Culture Gram Stain - Final Blood Blood Culture - Final Staphylococcus epidermidis Assessment and Plan (1) Bacteremia Current Visit: Yes Status: Acute Code(s): R78.81 - BACTEREMIA SNOMED Code(s): 0421150 Plan: Patient with polymicrobial bacteremia concern for right femoral central line which has been discontinued, , catheter tip cultures are pending, blood culture positive for enterococcus Klebsiella and Proteus, groin culture with Proteus patient to continue with vancomycin and Rocephin while waiting for the culture finalized Time with Patient: Less than 30
[2021-08-19] MEDS: SIMETHICONE 80 MG CHEWABLE PO SCH ×2 (16:53→20:46)
[2021-08-19] MEDS: ALPRAZolam 1 MG TAB PO SCH (20:45)
[2021-08-20] MEDS: SODIUM CHLORIDE 0.9% 1,000 ML IV SCH ×3 (00:29→16:48)
[2021-08-20] MEDS: VANCOMYCIN 2,000 MG in SODIUM CHLORIDE 0.9% 500 ML 500 ML IVPB SCH ×2 (00:29→16:57)
[2021-08-20] MEDS: HYDROcodone/APAP 5-325MG 1 EACH TAB PO PRN ×6 (00:29→21:01)
[2021-08-20] MEDS: ATORVASTATIN 80 MG TAB PO SCH (08:42)
[2021-08-20] MEDS: allopurinoL 100 MG TAB PO SCH (08:42)
[2021-08-20] MEDS: SIMETHICONE 80 MG CHEWABLE PO SCH ×4 (08:42→20:58)
[2021-08-20] MEDS: FUROSEMIDE 40 MG TAB PO SCH (08:42)
[2021-08-20] MEDS: METOPROLOL TARTRATE 25 MG TAB PO SCH ×3 (08:42→20:58)
[2021-08-20] MEDS: AMIODARONE 200 MG TAB PO SCH ×2 (08:42→20:58)
[2021-08-20] MEDS: PANTOPRAZOLE 40 MG/10 ML VIAL IV SCH (08:43)
--- NOTE | 2021-08-20 09:37 | P.PN ---
Subjective Progress Note Date: 08/20/21 Principal diagnosis: GI bleeding Patient complaining of some left-sided abdominal pain that started this morning. He says it seemed to start after he moved in bed. This was not present previously. Somewhat reminds him of a kidney stone he had years ago. No hematuria. Objective - Vital Signs Vital signs: Vital Signs Temp 98.0 F 08/20/21 04:00 Pulse 85 08/20/21 04:00 Resp 18 08/20/21 04:00 BP 121/60 08/20/21 04:00 Pulse Ox 99 08/20/21 04:00 Intake & Output 08/19/21 08/20/21 08/20/21 18:59 06:59 18:59 Intake Total 720 Output Total 635 300 Balance 85 -300 Intake: Oral 720 Output: Urine 635 300 Other: # Bowel Movements 0 0 - Exam Abdomen: Soft, mild left-sided tenderness, no rebound or guarding - Labs CBC & Chem 7: 08/18/21 12:00 08/19/21 08:37 Labs: Microbiology - Last 24 Hours (Table) 08/16/21 15:15 Catheter Tip Culture - Final Picc Line Proteus mirabilis 08/17/21 14:45 Blood Culture - Preliminary Blood No Growth after 48 hours 08/16/21 13:25 Blood Culture Gram Stain - Preliminary Blood Blood Culture - Preliminary Klebsiella oxytoca Enterococcus faecalis Proteus mirabilis 08/18/21 07:48 Blood Culture - Preliminary Blood No Growth after 24 hours Assessment and Plan (1) GI bleed Narrative/Plan: Patient complaining of left-sided abdominal pain. We'll obtain x-rays. Still no bowel movement. Continue diet for now. Monitor hemoglobin. Current Visit: Yes Status: Acute Code(s): K92.2 - GASTROINTESTINAL HEMORRHAGE, UNSPECIFIED SNOMED Code(s): 30584485
--- NOTE | 2021-08-20 11:16 | P.PN ---
Subjective Progress Note Date: 08/20/21 Pt has no new complaints today. NGTD x 48-72 hours in repeat BCx. On vancomycin and ceftriaxone. Objective - Vital Signs Vital signs: Vital Signs Temp 97.9 F 08/20/21 08:00 Pulse 100 08/20/21 08:00 Resp 17 08/20/21 08:00 BP 103/67 08/20/21 08:00 Pulse Ox 99 08/20/21 08:00 Intake & Output 08/19/21 08/20/21 08/20/21 18:59 06:59 18:59 Intake Total 720 Output Total 635 300 Balance 85 -300 Intake: Oral 720 Output: Urine 635 300 Other: # Bowel Movements 0 0 - Exam Gen: awake, alert HEENT: normocephalic, atraumatic, good hearing acuity, moist mucous membranes Resp: good air exchange, breathing comfortably with no accessory muscle use CVS: good distal perfusion x 4, RRR, no murmurs GI: soft, NTTP, ND : no SPT, no CVAT, esquivel catheter not present MSK: +pitting edema, no clubbing Neuro: non-focal, moving all extremities Psych: cooperative, euthymic mood - Labs CBC & Chem 7: 08/18/21 12:00 08/19/21 08:37 Labs: Microbiology - Last 24 Hours (Table) 08/18/21 07:48 Blood Culture - Preliminary Blood No Growth after 48 hours 08/16/21 15:15 Catheter Tip Culture - Final Picc Line Proteus mirabilis 08/17/21 14:45 Blood Culture - Preliminary Blood No Growth after 48 hours 08/16/21 13:25 Blood Culture Gram Stain - Preliminary Blood Blood Culture - Preliminary Klebsiella oxytoca Enterococcus faecalis Proteus mirabilis Assessment and Plan Assessment: Acute GI bleeding Acute symptomatic anemia secondary to GI bleeding Monitor hemoglobin Blood transfusion, fresh frozen plasma transfusion Will permanently discontinue Eliquis Patient given kcentra and tranexamic surgery consultation Fall precautions Gen. surgery consultation, s/p Colonoscopy on 08/16, which showed severe sigmoid diverticulosis with recent bleeding and grade 3 internal hemorrhoids with recent inflammation EGD did not identify source of bleed, no gastritis. Reports colonoscopy 2 years ago is unremarkable Left Foot Cellulitis Right Central Line Associated Blood Stream Infection cefazolin 1g q8h started 08/15, then broadened to vancomycin on 08/16, then added ceftriaxone on 08/17 femoral central line removed, tip Cx as below PICC line order once cleared by ID Follow for identification and sensitivities: -Blood Cx 08/16 - staph epidermidis, Klebsiella, enterococcus, proteus (pansensitive) -Blood Cx 08/17 - NGTD -Blood Cx 08/18 - NGTD -Wound Cx 08/16 - proteus, pansensitive -Catheter tip 08/16 - proteus, pansensitive Bilateral skin changes of the legs due to venous stasis ulcers Paroxysmal A. fib status post pacemaker on Eliquis CK D Hypertension History of CAD status post stents 10 years ago Resume home medications Hold ASPIRIN and Eliquis LE duplex of left leg, neg for DVT wound care consult Full code DVT prophylaxis mechanical GI prophylaxis Protonix Anticipated length of stay more than 2 midnights
--- NOTE | 2021-08-20 16:29 | XR ---
EXAMINATION TYPE: XR abdomen 2V DATE OF EXAM: 08/20/2021 COMPARISON: NONE HISTORY: Shoulder pain TECHNIQUE: 2 views supine and upright views. FINDINGS: 2 views upright and supine were obtained. There is no sign of intestinal obstruction or pne umoperitoneum. Fecal pattern is normal. There is some contrast in the large bowel. Lung bases are nikolay ar of consolidation. IMPRESSION: Nonacute abdomen.
[2021-08-20] MEDS: ALPRAZolam 1 MG TAB PO SCH (20:58)
--- NOTE | 2021-08-20 21:11 | P.PN ---
Subjective Progress Note Date: 08/20/21 Principal diagnosis: Bacteremia Patient is a 71-year-old male admitted to the hospital about a week ago for evaluation of bleeding per rectum and weakness the patient did have a right groin central line with the patient was noticed to have some purulent drainage which has been discontinued blood culture positive with multiple pathogen. On today's evaluation is 08/20/2021, patient continues to be afebrile, the patient is breathing comfortably on room air, the patient denies chest pain or cough, the patient denies abdominal pain no diarrhea, patient has significant swelling to lower extremity and blister with the nursing staff but no redness Objective - Vital Signs Vital signs: Vital Signs Temp 97 F L 08/20/21 16:00 Pulse 83 08/20/21 16:00 Resp 17 08/20/21 16:00 BP 100/57 08/20/21 16:00 Pulse Ox 97 08/20/21 20:15 Intake & Output 08/20/21 08/20/21 08/21/21 06:59 18:59 06:59 Output Total 300 850 Balance -300 -850 Output: Urine 300 850 Other: # Bowel Movements 0 - Exam GENERAL DESCRIPTION: An elderly male lying in bed in no distress RESPIRATORY SYSTEM: Unlabored breathing , decreased breath sounds at bases HEART: S1 S2 regular rate and rhythm , ABDOMEN: Soft , no tenderness EXTREMITIES: Bilateral legs are currently wrapped in Edis wrap, there is No drainage dressing - Labs CBC & Chem 7: 08/18/21 12:00 08/19/21 08:37 Labs: Microbiology - Last 24 Hours (Table) 08/17/21 14:45 Blood Culture - Preliminary Blood No Growth after 72 hours 08/16/21 13:25 Blood Culture Gram Stain - Final Blood Blood Culture - Final Klebsiella oxytoca Enterococcus faecalis Proteus mirabilis 08/18/21 07:48 Blood Culture - Preliminary Blood No Growth after 48 hours 08/16/21 15:15 Catheter Tip Culture - Final Picc Line Proteus mirabilis Assessment and Plan (1) Bacteremia Current Visit: Yes Status: Acute Code(s): R78.81 - BACTEREMIA SNOMED Code(s): 7592347 Plan: Patient with polymicrobial bacteremia concern for right femoral central line which has been discontinued, , catheter tip cultures finalized his Proteus, blood culture positive for enterococcus Klebsiella and Proteus, groin culture with Proteus patient is currently covered with vancomycin and Rocephin with repeat blood culture negative area be able to get a PICC line and plan for 2 weeks of vancomycin and Rocephin on discharge and close outPatient follow-up Time with Patient: Less than 30
[2021-08-21] MEDS: SODIUM CHLORIDE 0.9% 1,000 ML IV SCH (04:50)
[2021-08-21] MEDS: HYDROcodone/APAP 5-325MG 1 EACH TAB PO PRN ×4 (05:21→21:08)
[2021-08-21 06:46] LABS: Glucose,Whole Blood 99 mg/dL (75-99)
--- NOTE | 2021-08-21 07:20 | P.EN ---
A- team: Indication: Epistaxis Arrived on Scene to find: Patient with profuse bleeding from the right nare Vital signs reviewed Patient seen and examined at bedside. The patient reports no pain at the nose General: [non toxic], [no distress], [appears at stated age] Derm: [warm], [dry] Head: [atraumatic], [normocephalic], [symmetric] Eyes: [EOMI], [no lid lag], [anicteric sclera] Mouth: [no lip lesion], [mucus membranes moist], profuse bright red bleeding from R nare Cardiovascular: [S1S2 reg], [no murmur], [positive posterior tibial pulse bilateral], Lungs: [CTA bilateral], [no rhonchi, no rales] , [no accessory muscle use] Abdominal: [soft], [ nontender to palpation], [no guarding], [no appreciable organomegaly] Ext: [no gross muscle atrophy], [no edema], [no contractures] Neuro: [ CN II-XI grossly intact], [no focal neuro deficits] Psych: [Alert], [oriented], [appropriate affect] Assessment: Epistaxis Plan: Rhino rocket was inserted by DENICE Johnson from ED The patient reported significantly decreased sensation of post-nasal drip Afrin intranasal ordered ENT consulted Patient's Eliquis being held for GIB Disposition: 3S Notified: ENT notified of consult by RN A Total of 35 minutes of critical care time was spent on the complex care of this patient.
[2021-08-21 07:29] LABS: Anisocytosis Slight; HCT 25.4 % (39.0-53.0); Hypochromasia Moderate; MCH 31.5 pg (25.0-35.0); MCHC 31.6 g/dL (31.0-37.0); MCV 99.7 fL (80.0-100.0); Macrocytosis Slight; Mean Platelet Volume 8.9; Platelet Count 132 k/uL (150-450); Poikilocytosis Moderate; RBC 2.54 m/uL (4.30-5.90); RDW 17.2 % (11.5-15.5); WBC 6.4 k/uL (3.8-10.6)
[2021-08-21 07:34] LABS: INR 1.1 (<1.2); Prothrombin Time 12.2 sec (9.0-12.0)
[2021-08-21 07:38] LABS: Calcium 7.6 mg/dL (8.4-10.2); Magnesium 1.6 mg/dL (1.6-2.3); Potassium 3.3 mmol/L (3.5-5.1)
[2021-08-21 08:20] LABS: Band Neutrophils % 3 %; Metamyelocytes # (M) 0.13 k/uL (0); Metamyelocytes % 2 %; Monocytes # (M) 0.32 k/uL (0-1.0); Myelocytes # (M) 0.06 k/uL (0); Myelocytes % 1 %; Neutrophils % (M) 77 %; Nucleated Red Blood Cells 0 /100 WBC (0-0); Total Cells Counted 200
[2021-08-21 08:22] LABS: Polychromasia Present
[2021-08-21] MEDS: SIMETHICONE 80 MG CHEWABLE PO SCH ×4 (08:24→22:41)
[2021-08-21] MEDS: VANCOMYCIN 2,000 MG in SODIUM CHLORIDE 0.9% 500 ML 500 ML IVPB SCH (08:35)
[2021-08-21] MEDS: PANTOPRAZOLE 40 MG/10 ML VIAL IV SCH (08:36)
[2021-08-21] MEDS: FUROSEMIDE 40 MG TAB PO SCH (08:36)
[2021-08-21] MEDS: AMIODARONE 200 MG TAB PO SCH ×2 (08:36→21:08)
[2021-08-21] MEDS: allopurinoL 100 MG TAB PO SCH (08:36)
[2021-08-21] MEDS: METOPROLOL TARTRATE 25 MG TAB PO SCH ×3 (08:36→22:41)
[2021-08-21] MEDS: ATORVASTATIN 80 MG TAB PO SCH (08:36)
--- NOTE | 2021-08-21 08:58 | P.PN ---
Subjective Progress Note Date: 08/21/21 Pt with episode of epistaxis this morning, controlled with rhino-rocket, however, still with leakage around the rhino-rocket as of this AM upon my evalution. Hgb stable. Objective - Vital Signs Vital signs: Vital Signs Temp 98.4 F 08/21/21 04:00 Pulse 81 08/21/21 04:00 Resp 18 08/21/21 04:00 BP 107/60 08/21/21 04:00 Pulse Ox 100 08/21/21 04:00 Intake & Output 08/20/21 08/21/21 08/21/21 18:59 06:59 18:59 Intake Total 120 Output Total 850 400 Balance -850 -280 Intake: Oral 120 Output: Urine 850 400 Other: Voiding Method Urinal # Voids 200 - Exam Gen: awake, alert HEENT: normocephalic, atraumatic, good hearing acuity, moist mucous membranes Resp: good air exchange, breathing comfortably with no accessory muscle use CVS: good distal perfusion x 4, RRR, no murmurs GI: soft, NTTP, ND : no SPT, no CVAT, esquivel catheter not present MSK: +pitting edema, no clubbing Neuro: non-focal, moving all extremities Psych: cooperative, euthymic mood - Labs CBC & Chem 7: 08/21/21 07:11 08/21/21 07:11 Labs: Abnormal Lab Results - Last 24 Hours (Table) 08/21/21 08/21/21 08/21/21 Range/Units 07:11 07:11 07:11 RBC 2.54 L (4.30-5.90) m/uL Hgb 8.0 L (13.0-17.5) gm/dL Hct 25.4 L (39.0-53.0) % RDW 17.2 H (11.5-15.5) % Plt Count 132 L (150-450) k/uL Lymphocytes # (Manual) 0.90 L (1.0-4.8) k/uL Metamyelocytes # (Man) 0.13 H (0) k/uL Myelocytes # (Manual) 0.06 H (0) k/uL PT 12.2 H (9.0-12.0) sec Potassium 3.3 L (3.5-5.1) mmol/L Chloride 113 H (98-107) mmol/L BUN 23 H (9-20) mg/dL Creatinine 1.68 H (0.66-1.25) mg/dL Calcium 7.6 L (8.4-10.2) mg/dL Microbiology - Last 24 Hours (Table) 08/17/21 14:45 Blood Culture - Preliminary Blood No Growth after 72 hours 08/16/21 13:25 Blood Culture Gram Stain - Final Blood Blood Culture - Final Klebsiella oxytoca Enterococcus faecalis Proteus mirabilis 08/18/21 07:48 Blood Culture - Preliminary Blood No Growth after 48 hours Assessment and Plan Assessment: Acute GI bleeding Acute symptomatic anemia secondary to GI bleeding Epistaxis Monitor hemoglobin Blood transfusion, fresh frozen plasma transfusion Will permanently discontinue Eliquis Patient given kcentra and tranexamic surgery consultation Fall precautions Gen. surgery consultation, s/p Colonoscopy on 08/16, which showed severe sigmoid diverticulosis with recent bleeding and grade 3 internal hemorrhoids with recent inflammation EGD did not identify source of bleed, no gastritis. Reports colonoscopy 2 years ago is unremarkable ENT consult pending for epistaxis Left Foot Cellulitis Right Central Line Associated Blood Stream Infection cefazolin 1g q8h started 08/15, then broadened to vancomycin on 08/16, then added ceftriaxone on 08/17 femoral central line removed, tip Cx as below PICC line ordered, requires clearance from nephrology Follow for identification and sensitivities: -Blood Cx 08/16 - staph epidermidis, Klebsiella (R - ampicillin, tetracycline, bactrim), enterococcus (R - erythromycin, tetracycline), proteus (R - tetracycline) -Blood Cx 08/17 - NGTD -Blood Cx 08/18 - NGTD -Wound Cx 08/16 - proteus, R- tetracycline -Catheter tip 08/16 - proteus, R - tetracycline Bilateral skin changes of the legs due to venous stasis ulcers Paroxysmal A. fib status post pacemaker on Eliquis CK D Hypertension History of CAD status post stents 10 years ago Resume home medications Hold ASPIRIN and Eliquis LE duplex of left leg, neg for DVT wound care consult Full code DVT prophylaxis mechanical GI prophylaxis Protonix Anticipated length of stay more than 2 midnights
[2021-08-21] MEDS ORDERED: POTASSIUM CHLORIDE ER 20 MEQ TAB.ER PO STA (10:25)
--- NOTE | 2021-08-21 10:54 | P.NPCON ---
History of Present Illness - Reason for Consult acute renal failure, chronic renal failure - History of Present Illness Reason for consultation: Acute kidney injury on chronic kidney disease History of present illness: Patient is a 71-year-old male seen in consultation for acute kidney injury and chronic kidney disease. Patient has chronic kidney disease stage III. Baseline creatinine near 1.5 secondary to nephrosclerosis. Creatinine on admission was 2.73 in August 11- and is fairly stable at 1.5-1.6 the last 3 days. Patient presented to the hospital due to bloody bowel movements. He was also lightheaded prior to admission. He underwent EGD on 08/14/2021 which showed no active bleeding. He then underwent colonoscopy on 08/16/2021 which showed internal hemorrhoids, severe sigmoid diverticulosis with recent bleeding. Last night patient had severe epistaxis. Hemoglobin this morning is 8. He admits to good urine output. No hematuria or dysuria. No vomiting or diarrhea. Oral i ntake is fair. Patient does of systolic CHF with ejection fraction of 40-45% and moderate pulmonary hypertension. Patient is noted to be bacteremic with concern for right femoral central line infection which has been removed. Patient's cultures are positive for staph epidermidis, Proteus, enterococcus, Klebsiella. His catheter tip culture was positive for Proteus. He is on IV antibiotics. Infectious disease is following. Patient needs PICC line. No history of diabetes. Vital signs are stable. General: The patient appeared well nourished and normally developed. HEENT: Nasal packing noted. LUNGS: Breath sounds decreased. HEART: Rate and Rhythm are regular. ABDOMEN: Soft, obese. EXTREMITITES: Lower extremities wrapped. 1+ edema. 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 SEE DR. PAYNE'S H & P Last Myocardial Infarction Date:: 2010 History of Any Multi-Drug Resistant Organisms: None Reported Past Surgical History: Cholecystectomy, Heart Catheterization With Stent, Joint Replacement, Orthopedic Surgery, Tonsillectomy Additional Past Surgical History / Comment(s): BILAT TKA AND DANIELLE, BILAT KNEE SCOPES, COLONOSCOPIES, CARDIOVERSION 04/03/21, pacemaker placed 07/15/21 Past Anesthesia/Blood Transfusion Reactions: No Reported Reaction Date of Last Stent Placement:: 2010 Past Psychological History: No Psychological Hx Reported Smoking Status: Never smoker Past Alcohol Use History: Occasional Past Drug Use History: None Reported - Past Family History Mother Family Medical History: Cancer Additional Family Medical History / Comment(s): Mother of breast cancer at the age of 79yrs. Father Family Medical History: Coronary Artery Disease (CAD) Additional Family Medical History / Comment(s): Father had heart problems. He had coronary valve replacement. He at the age of 83 yrs. Medications and Allergies Home Medications Medication Instructions Recorded Confirmed Type ALPRAZolam [Xanax] 1 mg PO HS 04/15/15 08/11/21 History Apixaban [Eliquis] 5 mg PO BID 04/15/15 08/11/21 History Aspirin [Adult Low Dose Aspirin EC] 81 mg PO DAILY 04/09/16 08/11/21 History Latanoprost Ophth [Xalatan 0.005%] 1 drops BOTH EYES HS ml 04/13/16 08/11/21 Rx allopurinoL [Zyloprim] 100 mg PO DAILY 05/07/19 08/11/21 History Acetaminophen-Codeine 300-30mg 1 tab PO Q6H PRN 01/20/21 08/11/21 History [Tylenol w/codeine #3] Atorvastatin [Lipitor] 80 mg PO DAILY 02/20/21 08/11/21 History Pantoprazole Sodium [Protonix] 40 mg PO DAILY 02/20/21 08/11/21 History Spironolactone [Aldactone] 25 mg PO DAILY 30 Days #30 tab 02/24/21 08/11/21 Rx Furosemide [Lasix] 60 mg PO DAILY 03/30/21 08/11/21 History Metoprolol Succinate (ER) [Toprol 25 mg PO DAILY #90 tab 04/03/21 08/11/21 Rx XL] Amiodarone HCl [Pacerone] 100 mg PO DAILY 08/11/21 08/11/21 History Ferrous Sulfate [Feosol] 325 mg PO DAILY 08/11/21 08/11/21 History Menthol-Zinc Oxide Oint 1 applic TOPICAL BID PRN 08/11/21 08/11/21 History [Calmoseptine Oint] Metoclopramide [Reglan] 5 mg PO W/BRKFST 08/11/21 08/11/21 History Metoprolol Succinate [Toprol XL] 50 mg PO HS 08/11/21 08/11/21 History SILVER sulfADIAZINE CREAM 1 applic TOPICAL DAILY PRN 08/11/21 08/11/21 History [Silvadene Cream] Allergies Allergy/AdvReac Type Severity Reaction Status Date / Time No Known Allergies Allergy Verified 08/11/21 22:01 Physical Exam Vitals: Vital Signs Temp Pulse Resp BP Pulse Ox 08/21/21 04:00 98.4 F 81 18 107/60 100 08/21/21 02:00 80 19 08/21/21 00:00 98.7 F 80 19 109/65 97 08/20/21 20:15 97 08/20/21 20:00 98.9 F 89 17 106/59 100 08/20/21 16:00 97 F L 83 17 100/57 98 08/20/21 12:00 97.6 F 97 19 100/57 100 Intake and Output 08/20/21 08/21/21 08/21/21 22:59 06:59 14:59 Intake Total 120 Output Total 750 200 250 Balance -750 -80 -250 Intake: Oral 120 Output: Urine 750 200 250 Other: Voiding Method Urinal Urinal # Voids 2 200 1 Results - Lab Results Most recent lab results ABG pH 7.40 (7.35-7.45) 08/13/21 08:09 ABG pCO2 38 mmHg (35-45) 08/13/21 08:09 ABG pO2 79 mmHg (83-108) L 08/13/21 08:09 ABG HCO3 23 mmol/L (21-25) 08/13/21 08:09 ABG O2 Saturation 95.8 % (94-97) 08/13/21 08:09 Calcium 7.6 mg/dL (8.4-10.2) L 08/21/21 07:11 Phosphorus 3.5 mg/dL (2.5-4.5) 08/13/21 08:44 Magnesium 1.6 mg/dL (1.6-2.3) 08/21/21 07:11 08/21/21 07:11 08/21/21 07:11 Assessment and Plan Plan: Assessment: 1. Acute kidney injury mostly prerenal secondary to infection and cardiorenal syndrome. Creatinine was 2.7 on admission and is 1.68 today. CAT scan showed atrophic right kidney with multiple cysts. Left kidney SHOWED cysts without any hydronephrosis. 2. Acute on chronic systolic CHF with ejection fraction of 40-45% and moderate pulmonary hypertension. 3. Volume overload. 4. Bacteremia likely secondary to central line infection with blood cultures positive for staph, Proteus, enterococcus and Klebsiella. On IV antibiotics. 5. Hypokalemia from diuresis. 6. Hypomagnesemia from diuresis. 7. Chronic kidney disease stage IIIb. Baseline creatinine near 1.5 secondary to nephrosclerosis. Patient's creatinine was higher when he was last seen outpatient about 3-4 months ago. 8. Acute GI bleed as well as epistaxis. Hemoglobin 8 today. Status post EGD and colonoscopy this admission. Has Rhino Rocket. ENT also consulted. Plan: Hep-Lock IV fluids. Maintain Lasix. I will give him a dose of IV DDAVP today. Replace potassium and magnesium. Check UA. Continue to monitor renal function and urine output. Cleared for PICC line placement in the dominant arm. Thank you for the consultation. I will continue to follow the patient with you during his hospital stay.
[2021-08-21] MEDS ORDERED: DESMOPRESSIN ACETATE 30 MCG in SODIUM CHLORIDE 0.9% 50 ML IVPB ONE (11:00)
[2021-08-21] MEDS: MAGNESIUM SULFATE-D5W PMX 1 GM in DEXTROSE/WATER 1 100ML.BAG IVPB SCH ×2 (11:16→12:44)
--- NOTE | 2021-08-21 14:24 | P.PN ---
Subjective Progress Note Date: 08/21/21 CHIEF COMPLAINT: Hematochezia HISTORY OF PRESENT ILLNESS: The patient is a 71-year-old male status post p acemaker implantation over 2 weeks ago. He has been on blood thinners and has generalized malaise. He was admitted due to acute large GI bleed with moderate drop in Hgb from 15.6 baseline down to 9.4. Patient status post EGD that revealed diaphragmatic hiatal hernia, Martinez's esophagus and erosive esophagitis. Patient sitting up at bedside chair. Reports no further blood in his stools. He denies any abdominal pain. Patient did have an episode of epistaxis and required packing to his nose. ENT is on consult. Hemoglobin did drop from 8.4-8.0 currently on regular diet. PHYSICAL EXAM: VITAL SIGNS: Reviewed GENERAL: Well-developed in no acute distress. HEENT: No sclera icterus. Extraocular movements grossly intact. Moist buccal mucosa. Head is atraumatic, normocephalic. Hears conversational speech. No nasal drainage. NECK: Supple without lymphadenopathy. CHEST: Non-labored respirations and equal bilateral excursions. CARDIOVASCULAR: Palpable 2+ radial pulses. ABDOMEN: Soft. obese. upper abdomen tenderness with palpation MUSCULOSKELETAL: No clubbing or cyanosis. NEUROLOGIC: No focal or lateralizing signs. Cranial nerves II through XII grossly intact. PSYCH: Appropriate affect. Alert and oriented to person, place and time. SKIN: Well perfused. Good skin turgor. ASSESSMENT: 1. Acute GI bleed 2. Gastroesophageal reflux disease 3. Diaphragmatic hiatal hernia 4. Martinez's esophagus 5. Atrial fibrillation had been on the Eliquis 6. Chronic systolic heart failure 7. acute on Chronic kidney disease 8. Epistaxis PLAN: -At this time, lower endoscopy findings consistent with bleeding diverticulosis including small bowel bleed. Patient's extremely high risk for rebleed with anticoagulants. At this time, patient not felt to be a candidate for further anticoagulation due to high risk for bleeding. -Continue supportive care -Continue to monitor hemoglobin -continue PPI -Agree with ENT consult for epistaxis Physician Manufacturing Teacher note has been reviewed by physician. Signing provider agrees with the documented findings, assessment, and plan of care. Objective - Vital Signs Vital signs: Vital Signs Temp 98.4 F 08/21/21 04:00 Pulse 81 08/21/21 04:00 Resp 18 08/21/21 04:00 BP 107/60 08/21/21 04:00 Pulse Ox 100 08/21/21 04:00 Intake & Output 08/20/21 08/21/21 08/21/21 18:59 06:59 18:59 Intake Total 120 Output Total 850 400 250 Balance -850 -280 -250 Weight 128.5 kg Intake: Oral 120 Output: Urine 850 400 250 Other: Voiding Method Urinal # Voids 200 1 - Labs CBC & Chem 7: 08/21/21 07:11 08/21/21 07:11 Labs: Abnormal Lab Results - Last 24 Hours (Table) 08/21/21 08/21/21 08/21/21 Range/Units 07:11 07:11 07:11 RBC 2.54 L (4.30-5.90) m/uL Hgb 8.0 L (13.0-17.5) gm/dL Hct 25.4 L (39.0-53.0) % RDW 17.2 H (11.5-15.5) % Plt Count 132 L (150-450) k/uL Lymphocytes # (Manual) 0.90 L (1.0-4.8) k/uL Metamyelocytes # (Man) 0.13 H (0) k/uL Myelocytes # (Manual) 0.06 H (0) k/uL PT 12.2 H (9.0-12.0) sec Potassium 3.3 L (3.5-5.1) mmol/L Chloride 113 H (98-107) mmol/L BUN 23 H (9-20) mg/dL Creatinine 1.68 H (0.66-1.25) mg/dL Calcium 7.6 L (8.4-10.2) mg/dL Microbiology - Last 24 Hours (Table) 08/18/21 07:48 Blood Culture - Preliminary Blood No Growth after 72 hours 08/17/21 14:45 Blood Culture - Preliminary Blood No Growth after 72 hours 08/16/21 13:25 Blood Culture Gram Stain - Final Blood Blood Culture - Final Klebsiella oxytoca Enterococcus faecalis Proteus mirabilis
[2021-08-21 16:25] LABS: Anisocytosis Slight; HCT 22.7 % (39.0-53.0); HGB 7.6 gm/dL (13.0-17.5); Hypochromasia Slight; MCHC 33.5 g/dL (31.0-37.0); MCV 95.5 fL (80.0-100.0); Mean Platelet Volume 8.4; Platelet Count 147 k/uL (150-450); Poikilocytosis Moderate; RBC 2.38 m/uL (4.30-5.90); RDW 17.4 % (11.5-15.5); WBC 8.5 k/uL (3.8-10.6)
--- NOTE | 2021-08-21 17:22 | CONS ---
CONSULTATION DATE OF CONSULTATION: 08/21/2021 REASON FOR CONSULTATION: Epistaxis. HISTORY OF PRESENT ILLNESS: Patient is a very pleasant 71-year-old male who has been a patient at [facility] since 08/11/2021. He was originally admitted via the emergency room department for control of GI bleeding. The GI bleeding was felt to be secondary to the patient's Eliquis and aspirin use. The patient has been given a transfusion of at least two units of blood. On the morning of 08/21/2021, I was called at approximately 7 a.m. to be notified that the patient had developed bleeding from the right nostril. The bleeding was so severe that the A-Team was called, and they inserted a Rhino-Rocket into the right naris. This controlled the bleeding, although the patient did still continue to ooze somewhat. I advised the nurse at that time that I would be in to see the patient later in the afternoon. Past medical history reveals patient has NO KNOWN ALLERGIES TO MEDICATIONS. His home medications include: 1. Reglan. 2. Aldactone. 3. Protonix. 4. Toprol XL. 5. Xalatan. 6. Lasix. 7. Lipitor. 8. Baby aspirin. 9. Eliquis. 10.Pacerone. 11.Zyloprim. The patient suffers from sleep apnea and uses a CPAP machine at night. REVIEW OF SYSTEMS: Cardiovascular is positive for hypertension, ASHD, and atrial fibrillation. The patient has had a pacemaker inserted. Respiratory is positive for sleep apnea. Gastrointestinal is positive for GERD (gastroesophageal reflux disorder). Metabolic/endocrine is positive for hypercholesterolemia. Musculoskeletal is positive for gout. The remainder review of systems is unremarkable. PHYSICAL EXAMINATION: GENERAL APPEARANCE: This patient is a very pleasant 71-year-old, obese male who is alert, cooperative, and is in no acute distress at this time. He is not actively bleeding from his nose. HEENT EXAMINATION: Patient is normocephalic. Tympanic membranes are normal. Middle ear spaces are free of any fluid or infection. Pupils equal, round, and react to light and accommodation. Extraocular movements within normal limits. Intranasal examination reveals moderate septal deviation with hypertrophy of the inferior turbinates on the left side. The left naris is not packed and there does not appear to be any bleeding present. The right naris has a Rhino-Rocket balloon present. I adjusted the Rhino-Rocket so that it would fit better and placed approximately 4-5 mL of saline/water in each of the balloons. I also taped the catheters to the patient's cheek in the appropriate fashion. No active bleeding was noted. Examination of oropharynx revealed no active bleeding down the posterior pharyngeal wall. Palpation of the neck: Cranial nerves 2 through 12 and the remainder of the head and neck exam all within normal limits. Chest/cardiovascular: Both lung onofre are clear to percussion and auscultation. The patient is in regular sinus rhythm. Abdomen: There is no evidence any masses, megaly or tenderness. The abdomen is soft. The remainder of physical exam is unremarkable. IMPRESSION: Right anterior posterior epistaxis, controlled with RhinoRocket balloon. PLAN: At this point I would like to leave the Rhino-Rocket nasal packing/balloon in place until at least Saturday. On either or Saturday I will deflate the balloons, but I will leave it in place. The day after I deflate the balloons, then I will remove it, and if the patient does not bleed for at least 24 hours, then he can be discharged to home from a ENT standpoint. I ordered a facial tent for this patient because he uses a CPAP at home, and certainly with the nasal packing it is not possible for him to use a CPAP machine with its facial mask. Therefore, I believe that by providing the patient with significant supplemental oxygen, despite the fact that he is a mouth breather, this should adequately replace the CPAP machine temporarily. I have advised the nurses that if the patient complains of any discomfort with the Rhino-Rocket, then they may slightly deflate the balloons. In addition to this, if any bleeding occurs, if they so desire they may increase the amount of saline in each balloon by 1 or 2 mL. I cautioned the nurses and the patient that I expect him to bleed off and on, considering his lengthy history of being on Eliquis and aspirin. In addition to this, usually whenever the patient starts to bleed it is because the patient's pressure has become slightly elevated. By controlling the patient's blood pressure and keeping him normotensive, this reduces the incidence of bleeding. The purpose of leaving the nasal balloon in for such a lengthy time is to allow the blood vessel that has ruptured to thrombose completely and not require any type of nasal packing. Once the nasal balloon is removed, then at that point I will probably start the patient using Afrin nasal spray in the right naris to keep the nasal blood vessels vasoconstricted as much as possible. I will continue to see this patient on a daily basis as long as the nasal balloons are in place and as long as there is an issue with bleeding. I would like to take this opportunity to thank you for allowing me to assist in the care of your patient. If I could be of any further assistance, please feel free to call my office. RAUL / EILEENN: [phone] / JOSE
[2021-08-21 18:14] LABS: Appearance,Urine Cloudy (Clear); Bacteria,Urine Moderate /hpf; Bilirubin,Urine Negative (Negative); Blood,Urine Trace (Negative); Budding Yeast,Urine Few /hpf; Color,Urine Yellow; Glucose,Urine (UA) Negative (Negative); Hyaline Casts,Urine 1 /lpf (0-2); Ketones,Urine Negative (Negative); Leukocyte Esterase,Urine Negative (Negative); Mucus,Urine Rare /hpf; Nitrite,Urine Negative (Negative); Protein,Urine Trace (Negative); RBC,Urine 4 /hpf (0-5); Specific Gravity,Urine 1.015 (1.001-1.035); Squamous Epithelial Cell,Urine <1 /hpf (0-4); Urobilinogen,Urine <2.0 mg/dL (<2.0); WBC,Urine 5 /hpf (0-5)
[2021-08-21] MEDS ORDERED: MELATONIN 5 MG TABLET PO ONE (21:00)
[2021-08-21] MEDS: ALPRAZolam 1 MG TAB PO SCH (21:08)
[2021-08-21] MEDS: OXYMETAZOLINE 0.05% NASL SPRAY 1 SPRAY BOTTLE NASAL PRN (22:41)
--- NOTE | 2021-08-21 23:17 | P.PN ---
Subjective Progress Note Date: 08/21/21 Principal diagnosis: Bacteremia Patient is a 71-year-old male admitted to the hospital about a week ago for evaluation of bleeding per rectum and weakness the patient did have a right groin central line with the patient was noticed to have some purulent drainage which has been discontinued blood culture positive with multiple pathogen. On today's evaluation is 08/21/2021, patient continues to be afebrile, the patient is breathing comfortably on room air, the patient denies chest pain or cough, the patient denies abdominal pain no diarrhea, patient has developed e pistaxis this morning Objective - Vital Signs Vital signs: Vital Signs Temp 98.4 F 08/21/21 04:00 Pulse 81 08/21/21 04:00 Resp 18 08/21/21 04:00 BP 107/60 08/21/21 04:00 Pulse Ox 100 08/21/21 04:00 Intake & Output 08/20/21 08/21/21 08/21/21 18:59 06:59 18:59 Intake Total 120 Output Total 850 400 250 Balance -850 -280 -250 Intake: Oral 120 Output: Urine 850 400 250 Other: Voiding Method Urinal # Voids 200 1 - Exam GENERAL DESCRIPTION: An elderly male lying in bed in no distress RESPIRATORY SYSTEM: Unlabored breathing , decreased breath sounds at bases HEART: S1 S2 regular rate and rhythm , ABDOMEN: Soft , no tenderness EXTREMITIES: Bilateral legs are currently wrapped in Edis wrap, there is No drainage dressing - Labs CBC & Chem 7: 08/21/21 16:09 08/21/21 07:11 Labs: Abnormal Lab Results - Last 24 Hours (Table) 08/21/21 08/21/21 08/21/21 Range/Units 07:11 07:11 07:11 RBC 2.54 L (4.30-5.90) m/uL Hgb 8.0 L (13.0-17.5) gm/dL Hct 25.4 L (39.0-53.0) % RDW 17.2 H (11.5-15.5) % Plt Count 132 L (150-450) k/uL Lymphocytes # (Manual) 0.90 L (1.0-4.8) k/uL Metamyelocytes # (Man) 0.13 H (0) k/uL Myelocytes # (Manual) 0.06 H (0) k/uL PT 12.2 H (9.0-12.0) sec Potassium 3.3 L (3.5-5.1) mmol/L Chloride 113 H (98-107) mmol/L BUN 23 H (9-20) mg/dL Creatinine 1.68 H (0.66-1.25) mg/dL Calcium 7.6 L (8.4-10.2) mg/dL Microbiology - Last 24 Hours (Table) 08/18/21 07:48 Blood Culture - Preliminary Blood No Growth after 72 hours 08/17/21 14:45 Blood Culture - Preliminary Blood No Growth after 72 hours 08/16/21 13:25 Blood Culture Gram Stain - Final Blood Blood Culture - Final Klebsiella oxytoca Enterococcus faecalis Proteus mirabilis Assessment and Plan (1) Bacteremia Current Visit: Yes Status: Acute Code(s): R78.81 - BACTEREMIA SNOMED Code(s): 1527099 Plan: Patient with polymicrobial bacteremia concern for right femoral central line which has been discontinued, , catheter tip cultures finalized his Proteus, blood culture positive for enterococcus Klebsiella and Proteus, groin culture with Proteus patient is currently covered with vancomycin and Rocephin with repeat blood culture negative, patient to get a PICC line and plan for 2 weeks of vancomycin and Rocephin, kidney function need to monitor closely if any further worsening may need to switch him over to daptomycin Time with Patient: Less than 30
[2021-08-22] MEDS: VANCOMYCIN 2,000 MG in SODIUM CHLORIDE 0.9% 500 ML 500 ML IVPB SCH (00:30)
[2021-08-22] MEDS: HYDROcodone/APAP 5-325MG 1 EACH TAB PO PRN ×5 (01:04→20:50)
--- NOTE | 2021-08-22 09:17 | P.PN ---
Subjective Patient is seen in follow-up for acute kidney injury on chronic kidney disease. Morning labs pending. Sitting up in chair. Good urine output. Oral intake fair. No vomiting or diarrhea. Vital signs are stable. HEENT: Nasal packing noted. LUNGS: Breath sounds decreased. HEART: Rate and Rhythm are regular. ABDOMEN: Soft, obese. EXTREMITITES: 2+ edema. Lower extremities wrapped. Objective - Vital Signs Vital signs: Vital Signs Temp 98.1 F 08/22/21 04:00 Pulse 100 08/22/21 04:00 Resp 17 08/22/21 04:00 BP 116/67 08/22/21 04:00 Pulse Ox 99 08/22/21 04:00 Intake & Output 08/21/21 08/22/21 08/22/21 18:59 06:59 18:59 Intake Total 520 Output Total 450 500 Balance -450 20 Weight 128.5 kg Intake: Oral 520 Output: Urine 450 500 Other: Voiding Method Urinal # Voids 1 1 - Labs CBC & Chem 7: 08/21/21 16:09 08/21/21 07:11 Labs: Abnormal Lab Results - Last 24 Hours (Table) 08/21/21 08/21/21 Range/Units 16:09 Unknown RBC 2.38 L (4.30-5.90) m/uL Hgb 7.6 L (13.0-17.5) gm/dL Hct 22.7 L (39.0-53.0) % RDW 17.4 H (11.5-15.5) % Plt Count 147 L (150-450) k/uL Urine Protein Trace H (Negative) Urine Blood Trace H (Negative) Urine Bacteria Moderate H (None) /hpf Urine Mucus Rare H (None) /hpf Urine Yeast (Budding) Few H (None) /hpf Microbiology - Last 24 Hours (Table) 08/17/21 14:45 Blood Culture - Preliminary Blood No Growth after 96 hours 08/18/21 07:48 Blood Culture - Preliminary Blood No Growth after 72 hours Assessment and Plan Plan: Assessment: 1. Acute kidney injury mostly prerenal secondary to infection and cardiorenal syndrome. Creatinine was 2.7 on admission and was 1.68 yesterday[address] CAT scan showed atrophic right kidney with multiple cysts. Left kidney showed cysts without any hydronephrosis. Trace proteinuria on UA. 2. Acute on chronic systolic CHF with ejection fraction of 40-45% and moderate pulmonary hypertension. 3. Volume overload. 4. Bacteremia likely secondary to central line infection with blood cultures positive for staph, Proteus, enterococcus and Klebsiella. On IV antibiotics. 5. Hypokalemia from diuresis. Replaced. 6. Hypomagnesemia from diuresis. Replaced. 7. Chronic kidney disease stage IIIb. Baseline creatinine near 1.5 secondary to nephrosclerosis. Patient's creatinine was higher when he was last seen o utpatient about 3-4 months ago. 8. Acute GI bleed as well as epistaxis. Hemoglobin 7.6 yesterday. Status post EGD and colonoscopy this admission. Has Rhino Marcus. ENT also following. Status post IV DDAVP given 08/21/2021. Plan: I will change Lasix to 40 mg IV twice daily. Continue to monitor renal function and urine output. Add Aranesp. Follow-up morning labs. Monitor vancomycin levels. Dose to be adjusted for renal function.
--- NOTE | 2021-08-22 10:40 | IR ---
EXAMINATION TYPE: IR cvc insert >=5 years DATE OF EXAM: 08/22/2021 COMPARISON: NONE CLINICAL HISTORY: Gastrointestinal bleeding, anemia. Needs long-term intravenous access for therapy PROCEDURE: Hand hygiene obtained with soap and water and alcohol-based hand rub. After informed consent, the skin overlying the right brachial vein was localized with ultrasound and noted to be compressible and patent. An ultrasound image was obtained and submitted on the patient's chart. The overlying skin was prepped and draped and Lidocaine was used for local anesthesia. A sk in romel was made with a scalpel. Access was gained to the vein under ultrasound guidance with a 21 g auge needle and a 0.018 inch wire was advanced. Access site was dilated with Peel-Away sheath and ca theter tailored to the appropriate length and advanced such that the distal tip is at the cavoatrial junction. Spot image was obtained verifying placement. Catheter was fixed to the skin and a sterile dressing was placed following hemostasis. Catheter was aspirated and flushed with saline. Patient was discharged in stable condition without complication. Maximal barrier technique is utilized. Ultr asound image is documented on the chart. Ultrasound used with sterile technique. Fluoro time and fluoroscopic images submitted to document procedure: 15 intraoperative C-arm images, 0.3 minutes fluoroscopy time IMPRESSION: STATUS POST ULTRASOUND AND FLUOROSCOPIC GUIDED PICC LINE PLACEMENT, READY FOR USE. THIS PROCEDURE WAS PERFORMED BY THE UNDERSIGNED.
[2021-08-22] MEDS: AMIODARONE 200 MG TAB PO SCH ×2 (10:41→20:49)
[2021-08-22] MEDS: ATORVASTATIN 80 MG TAB PO SCH (10:41)
[2021-08-22] MEDS: PANTOPRAZOLE 40 MG/10 ML VIAL IV SCH (10:41)
[2021-08-22] MEDS: METOPROLOL TARTRATE 25 MG TAB PO SCH ×3 (10:41→22:04)
[2021-08-22] MEDS: allopurinoL 100 MG TAB PO SCH (10:41)
[2021-08-22] MEDS: SIMETHICONE 80 MG CHEWABLE PO SCH ×4 (10:41→22:04)
[2021-08-22] MEDS: FUROSEMIDE 10 MG/ML 4 ML VIAL IV SCH ×2 (10:52→20:50)
[2021-08-22 12:15] LABS: Anisocytosis Slight; Basophils % (A) 1 %; Eosinophils # (A) 0.1 k/uL (0-0.7); Eosinophils % (A) 1 %; HCT 23.3 % (39.0-53.0); HGB 7.4 gm/dL (13.0-17.5); Hypochromasia Marked; Lymphocytes # (A) 0.6 k/uL (1.0-4.8); Lymphocytes % (A) 10 %; MCH 32.1 pg (25.0-35.0); MCHC 31.8 g/dL (31.0-37.0); Macrocytosis Slight; Mean Platelet Volume 7.9; Monocytes # (A) 0.3 k/uL (0-1.0); Monocytes % (A) 6 %; Neutrophils # (A) 4.5 k/uL (1.3-7.7); Neutrophils % (A) 80 %; Platelet Count 137 k/uL (150-450); Poikilocytosis Moderate; RBC 2.31 m/uL (4.30-5.90); RDW 17.3 % (11.5-15.5); WBC 5.6 k/uL (3.8-10.6)
[2021-08-22 12:24] LABS: Potassium 3.5 mmol/L (3.5-5.1)
--- NOTE | 2021-08-22 13:13 | P.PN ---
Subjective Progress Note Date: 08/22/21 Principal diagnosis: GI bleeding Feeling weak and tired, has not been able to sleep because he was not able to wear his home cpap last night due to nasal packing. Patient reported some bleeding from the nose last night but nothing since then. Objective - Vital Signs Vital signs: Vital Signs Temp 97.8 F 08/22/21 10:36 Pulse 100 08/22/21 04:00 Resp 24 08/22/21 10:36 BP 105/55 08/22/21 10:36 Pulse Ox 99 08/22/21 10:36 Intake & Output 08/21/21 08/22/21 08/22/21 18:59 06:59 18:59 Intake Total 520 210 Output Total 450 500 Balance -450 20 210 Weight 128.5 kg Intake: Oral 520 210 Output: Urine 450 500 Other: Voiding Method Urinal # Voids 1 1 - Exam Gen: awake, alert HEENT: normocephalic, atraumatic, good hearing acuity, moist mucous membranes Resp: good air exchange, breathing comfortably with no accessory muscle use CVS: good distal perfusion x 4, RRR, no murmurs GI: soft, NTTP, ND : no SPT, no CVAT, esquivel catheter not present MSK: +pitting edema, no clubbing Neuro: non-focal, moving all extremities Psych: cooperative, euthymic mood - Labs CBC & Chem 7: 08/22/21 11:45 08/22/21 11:45 Labs: Abnormal Lab Results - Last 24 Hours (Table) 08/21/21 08/21/21 08/22/21 Range/Units 16:09 Unknown 11:45 RBC 2.38 L (4.30-5.90) m/uL Hgb 7.6 L (13.0-17.5) gm/dL Hct 22.7 L (39.0-53.0) % MCV (80.0-100.0) fL RDW 17.4 H (11.5-15.5) % Plt Count 147 L (150-450) k/uL Lymphocytes # (1.0-4.8) k/uL Chloride 111 H (98-107) mmol/L Carbon Dioxide 20 L (22-30) mmol/L BUN 26 H (9-20) mg/dL Creatinine 1.93 H (0.66-1.25) mg/dL Glucose 107 H (74-99) mg/dL Calcium 8.0 L (8.4-10.2) mg/dL Urine Protein Trace H (Negative) Urine Blood Trace H (Negative) Urine Bacteria Moderate H (None) /hpf Urine Mucus Rare H (None) /hpf Urine Yeast (Budding) Few H (None) /hpf 08/22/21 Range/Units 11:45 RBC 2.31 L (4.30-5.90) m/uL Hgb 7.4 L (13.0-17.5) gm/dL Hct 23.3 L (39.0-53.0) % MCV 101.0 H D (80.0-100.0) fL RDW 17.3 H (11.5-15.5) % Plt Count 137 L (150-450) k/uL Lymphocytes # 0.6 L (1.0-4.8) k/uL Chloride (98-107) mmol/L Carbon Dioxide (22-30) mmol/L BUN (9-20) mg/dL Creatinine (0.66-1.25) mg/dL Glucose (74-99) mg/dL Calcium (8.4-10.2) mg/dL Urine Protein (Negative) Urine Blood (Negative) Urine Bacteria (None) /hpf Urine Mucus (None) /hpf Urine Yeast (Budding) (None) /hpf Microbiology - Last 24 Hours (Table) 08/18/21 07:48 Blood Culture - Preliminary Blood No Growth after 96 hours 08/17/21 14:45 Blood Culture - Preliminary Blood No Growth after 96 hours Assessment and Plan Plan: Acute GI bleeding Acute symptomatic anemia secondary to GI bleeding Epistaxis Monitor hemoglobin, trending down currently, will continue to trend Blood transfusion, fresh frozen plasma transfusion Will permanently discontinue Eliquis per GI risk of rebleeding high Patient given kcentra and tranexamic surgery consultation Fall precautions Gen. surgery consultation, s/p Colonoscopy on 08/16, which showed severe sigmoid diverticulosis with recent bleeding and grade 3 internal hemorrhoids with recent inflammation EGD did not identify source of bleed, no gastritis. Reports colonoscopy 2 years ago is unremarkable ENT consulted, nose packed. Left Foot Cellulitis Right Central Line Associated Blood Stream Infection cefazolin 1g q8h started 08/15, then broadened to vancomycin on 08/16, then added ceftriaxone on 08/17 femoral central line removed, tip Cx as below PICC line, needs 2 weeks of vancomycin and Rocephin per ID Follow for identification and sensitivities: -Blood Cx 08/16 - staph epidermidis, Klebsiella (R - ampicillin, tetracycline, bactrim), enterococcus (R - erythromycin, tetracycline), proteus (R - tetracycline) -Blood Cx 08/17 - NGTD -Blood Cx 08/18 - NGTD -Wound Cx 08/16 - proteus, R- tetracycline -Catheter tip 08/16 - proteus, R - tetracycline Bilateral skin changes of the legs due to venous stasis ulcers Paroxysmal A. fib status post pacemaker on Eliquis CK D Hypertension History of CAD status post stents 10 years ago Resume home medications Hold ASPIRIN and Eliquis LE duplex of left leg, neg for DVT wound care Full code DVT prophylaxis mechanical GI prophylaxis Protonix
[2021-08-22] MEDS: DAPTOmycin 750 MG in SODIUM CHLORIDE 0.9% 50 ML IVPB SCH (14:29)
[2021-08-22] MEDS: DARBEPOETIN ALFA 40 MCG/0.4 ML SYRINGE SQ SCH (14:30)
[2021-08-22] MEDS ORDERED: VANCOMYCIN TROUGH DUE 1 EACH MISC MISCELLANE ONE (15:00)
--- NOTE | 2021-08-22 15:20 | P.PN ---
Subjective Progress Note Date: 08/22/21 CHIEF COMPLAINT: Hematochezia HISTORY OF PRESENT ILLNESS: The patient is a 71-year-old male status post p acemaker implantation over 2 weeks ago. He has been on blood thinners and has generalized malaise. He was admitted due to acute large GI bleed with moderate drop in Hgb from 15.6 baseline down to 9.4. Patient status post EGD that revealed diaphragmatic hiatal hernia, Martinez's esophagus and erosive esophagitis. Patient sitting up at bedside chair. Reports no further blood in his stools. He denies any new abdominal pain. Patient did have an episode of epistaxis and required packing to his nose. ENT is on consult. Hemoglobin continues to trend downward from 7.6-7.4. PHYSICAL EXAM: VITAL SIGNS: Reviewed GENERAL: Well-developed in no acute distress. HEENT: No sclera icterus. Extraocular movements grossly intact. Moist buccal mucosa. Head is atraumatic, normocephalic. Hears conversational speech. No nasal drainage. NECK: Supple without lymphadenopathy. CHEST: Non-labored respirations and equal bilateral excursions. CARDIOVASCULAR: Palpable 2+ radial pulses. ABDOMEN: Soft. obese. upper abdomen tenderness with palpation MUSCULOSKELETAL: No clubbing or cyanosis. NEUROLOGIC: No focal or lateralizing signs. Cranial nerves II through XII grossly intact. PSYCH: Appropriate affect. Alert and oriented to person, place and time. SKIN: Well perfused. Good skin turgor. ASSESSMENT: 1. Acute GI bleed 2. Gastroesophageal reflux disease 3. Diaphragmatic hiatal hernia 4. Martinez's esophagus 5. Atrial fibrillation had been on the Eliquis 6. Chronic systolic heart failure 7. acute on Chronic kidney disease 8. Epistaxis PLAN: -Do to patient's downward trend of hemoglobin would recommend tagged RBC scan for further evaluation of bleeding. However, the product for the tagged RBC scan is currently not available at our facility. -Continue to monitor -At this time, lower endoscopy findings consistent with bleeding diverticulosis including small bowel bleed. Patient's extremely high risk for rebleed with anticoagulants. At this time, patient not felt to be a candidate for further anticoagulation due to high risk for bleeding. -Continue supportive care -Continue to monitor hemoglobin -continue PPI Physician Color Specialist note has been reviewed by physician. Signing provider agrees with the documented findings, assessment, and plan of care. Objective - Vital Signs Vital signs: Vital Signs Temp 97.3 F L 08/22/21 14:41 Pulse 73 08/22/21 14:41 Resp 18 08/22/21 14:41 BP 100/55 08/22/21 14:41 Pulse Ox 96 08/22/21 14:41 Intake & Output 08/21/21 08/22/21 08/22/21 18:59 06:59 18:59 Intake Total 520 210 Output Total 450 500 Balance -450 20 210 Weight 128.5 kg Intake: Oral 520 210 Output: Urine 450 500 Other: Voiding Method Urinal # Voids 1 1 - Labs CBC & Chem 7: 08/22/21 11:45 08/22/21 11:45 Labs: Abnormal Lab Results - Last 24 Hours (Table) 08/21/21 08/21/21 08/22/21 Range/Units 16:09 Unknown 11:45 RBC 2.38 L (4.30-5.90) m/uL Hgb 7.6 L (13.0-17.5) gm/dL Hct 22.7 L (39.0-53.0) % MCV (80.0-100.0) fL RDW 17.4 H (11.5-15.5) % Plt Count 147 L (150-450) k/uL Lymphocytes # (1.0-4.8) k/uL Chloride 111 H (98-107) mmol/L Carbon Dioxide 20 L (22-30) mmol/L BUN 26 H (9-20) mg/dL Creatinine 1.93 H (0.66-1.25) mg/dL Glucose 107 H (74-99) mg/dL Calcium 8.0 L (8.4-10.2) mg/dL Urine Protein Trace H (Negative) Urine Blood Trace H (Negative) Urine Bacteria Moderate H (None) /hpf Urine Mucus Rare H (None) /hpf Urine Yeast (Budding) Few H (None) /hpf 08/22/21 Range/Units 11:45 RBC 2.31 L (4.30-5.90) m/uL Hgb 7.4 L (13.0-17.5) gm/dL Hct 23.3 L (39.0-53.0) % MCV 101.0 H D (80.0-100.0) fL RDW 17.3 H (11.5-15.5) % Plt Count 137 L (150-450) k/uL Lymphocytes # 0.6 L (1.0-4.8) k/uL Chloride (98-107) mmol/L Carbon Dioxide (22-30) mmol/L BUN (9-20) mg/dL Creatinine (0.66-1.25) mg/dL Glucose (74-99) mg/dL Calcium (8.4-10.2) mg/dL Urine Protein (Negative) Urine Blood (Negative) Urine Bacteria (None) /hpf Urine Mucus (None) /hpf Urine Yeast (Budding) (None) /hpf Microbiology - Last 24 Hours (Table) 08/18/21 07:48 Blood Culture - Preliminary Blood No Growth after 96 hours 08/17/21 14:45 Blood Culture - Preliminary Blood No Growth after 96 hours
[2021-08-22] MEDS: ALPRAZolam 1 MG TAB PO SCH (20:49)
[2021-08-22] MEDS: OXYMETAZOLINE 0.05% NASL SPRAY 1 SPRAY BOTTLE NASAL PRN (20:53)
--- NOTE | 2021-08-22 23:15 | P.PN ---
Subjective Progress Note Date: 08/22/21 Principal diagnosis: Bacteremia Patient is a 71-year-old male admitted to the hospital about a week ago for evaluation of bleeding per rectum and weakness the patient did have a right groin central line with the patient was noticed to have some purulent drainage which has been discontinued blood culture positive with multiple pathogen. On today's evaluation is 08/22/2021, patient remains to be afebrile, the patient is breathing comfortably on room air, the patient denies chest pain or cough, the patient denies abdominal pain no diarrhea, no further epistaxis, still has significant swelling to lower extremity and drainage per the nursing staff Objective - Vital Signs Vital signs: Vital Signs Temp 97.8 F 08/22/21 10:36 Pulse 100 08/22/21 04:00 Resp 24 08/22/21 10:36 BP 105/55 08/22/21 10:36 Pulse Ox 99 08/22/21 10:36 Intake & Output 08/21/21 08/22/21 08/22/21 18:59 06:59 18:59 Intake Total 520 90 Output Total 450 500 Balance -450 20 90 Weight 128.5 kg Intake: Oral 520 90 Output: Urine 450 500 Other: Voiding Method Urinal # Voids 1 1 - Exam GENERAL DESCRIPTION: An elderly male lying in bed in no distress RESPIRATORY SYSTEM: Unlabored breathing , decreased breath sounds at bases HEART: S1 S2 regular rate and rhythm , ABDOMEN: Soft , no tenderness EXTREMITIES: Bilateral legs are currently wrapped in Edis wrap, there is No drainage dressing - Labs CBC & Chem 7: 08/22/21 11:45 08/22/21 11:45 Labs: Abnormal Lab Results - Last 24 Hours (Table) 08/21/21 08/21/21 Range/Units 16:09 Unknown RBC 2.38 L (4.30-5.90) m/uL Hgb 7.6 L (13.0-17.5) gm/dL Hct 22.7 L (39.0-53.0) % RDW 17.4 H (11.5-15.5) % Plt Count 147 L (150-450) k/uL Urine Protein Trace H (Negative) Urine Blood Trace H (Negative) Urine Bacteria Moderate H (None) /hpf Urine Mucus Rare H (None) /hpf Urine Yeast (Budding) Few H (None) /hpf Microbiology - Last 24 Hours (Table) 08/18/21 07:48 Blood Culture - Preliminary Blood No Growth after 96 hours 08/17/21 14:45 Blood Culture - Preliminary Blood No Growth after 96 hours Assessment and Plan (1) Bacteremia Current Visit: Yes Status: Acute Code(s): R78.81 - BACTEREMIA SNOMED Code(s): 2543116 Plan: Patient with polymicrobial bacteremia concern for right femoral central line which has been discontinued, , catheter tip cultures finalized his Proteus, blood culture positive for enterococcus Klebsiella and Proteus, groin culture with Proteus patient is currently covered with vancomycin and Rocephin with repeat blood culture negative, patient did have worsening of his kidney function and high risk of nephrotoxicity from vancomycin which will be discontinued daptomycin be added and continue with the Rocephin Time with Patient: Less than 30
[2021-08-23] MEDS: HYDROcodone/APAP 5-325MG 1 EACH TAB PO PRN ×2 (01:20→23:19)
[2021-08-23 07:30] LABS: Anisocytosis Slight; HGB 7.8 gm/dL (13.0-17.5); Hypochromasia Marked; MCH 32.8 pg (25.0-35.0); MCHC 31.4 g/dL (31.0-37.0); MCV 104.4 fL (80.0-100.0); Macrocytosis Moderate; Platelet Count 176 k/uL (150-450); Poikilocytosis Moderate; RBC 2.39 m/uL (4.30-5.90); RDW 17.3 % (11.5-15.5); WBC 8.6 k/uL (3.8-10.6)
[2021-08-23 07:46] LABS: Calcium 8.3 mg/dL (8.4-10.2); Magnesium 1.9 mg/dL (1.6-2.3); Potassium 3.8 mmol/L (3.5-5.1)
[2021-08-23] MEDS: FUROSEMIDE 10 MG/ML 4 ML VIAL IV SCH (08:19)
[2021-08-23] MEDS: allopurinoL 100 MG TAB PO SCH (08:20)
[2021-08-23] MEDS: PANTOPRAZOLE 40 MG/10 ML VIAL IV SCH (08:20)
[2021-08-23] MEDS: AMIODARONE 200 MG TAB PO SCH ×2 (08:20→20:51)
[2021-08-23] MEDS: DAPTOmycin 750 MG in SODIUM CHLORIDE 0.9% 50 ML IVPB SCH (08:20)
[2021-08-23] MEDS: ATORVASTATIN 80 MG TAB PO SCH (08:20)
[2021-08-23] MEDS: METOPROLOL TARTRATE 25 MG TAB PO SCH ×3 (08:20→20:52)
[2021-08-23] MEDS: SIMETHICONE 80 MG CHEWABLE PO SCH ×4 (08:21→20:52)
[2021-08-23 08:44] LABS: Eosinophils # (M) 0.09 k/uL (0-0.7); Lymphocytes # (M) 0.77 k/uL (1.0-4.8); Metamyelocytes # (M) 0.09 k/uL (0); Metamyelocytes % 1 %; Monocytes # (M) 0.69 k/uL (0-1.0); Myelocytes # (M) 0.09 k/uL (0); Myelocytes % 1 %; Neutrophils # (M) 6.88 k/uL (1.3-7.7); Neutrophils % (M) 80 %; Nucleated Red Blood Cells 0 /100 WBC (0-0); Total Cells Counted 100
[2021-08-23 08:45] LABS: Polychromasia Present; Target Cells Present
[2021-08-23 08:46] LABS: Crenated RBC Present
--- NOTE | 2021-08-23 09:15 | P.PN ---
Subjective Patient is seen in follow-up for acute kidney injury on chronic kidney disease. Renal function a little worse from diuresis. Sitting up in chair. Urine output documented as 950 mL in the last 24 hours. Oral intake fair. Vital signs are stable. HEENT: Nasal packing noted. LUNGS: Breath sounds decreased. HEART: Rate and Rhythm are regular. ABDOMEN: Soft, obese. EXTREMITITES: 2+ edema. Lower extremities wrapped. Objective - Vital Signs Vital signs: Vital Signs Temp 98.1 F 08/23/21 04:00 Pulse 119 H 08/23/21 08:00 Resp 18 08/23/21 08:00 BP 118/85 08/23/21 08:00 Pulse Ox 92 L 08/23/21 08:00 Intake & Output 08/22/21 08/23/21 08/23/21 18:59 06:59 18:59 Intake Total 730 Output Total 1 Balance 729 Intake: Oral 730 Output: Urine 1 Other: Voiding Method Urinal # Voids 3 # Bowel Movements 1 - Labs CBC & Chem 7: 08/23/21 06:49 08/23/21 06:49 Labs: Abnormal Lab Results - Last 24 Hours (Table) 08/22/21 08/22/21 08/23/21 Range/Units 11:45 11:45 06:49 RBC 2.31 L (4.30-5.90) m/uL Hgb 7.4 L (13.0-17.5) gm/dL Hct 23.3 L (39.0-53.0) % MCV 101.0 H D (80.0-100.0) fL RDW 17.3 H (11.5-15.5) % Plt Count 137 L (150-450) k/uL Lymphocytes # 0.6 L (1.0-4.8) k/uL Lymphocytes # (Manual) (1.0-4.8) k/uL Metamyelocytes # (Man) (0) k/uL Myelocytes # (Manual) (0) k/uL Chloride 111 H 111 H (98-107) mmol/L Carbon Dioxide 20 L 20 L (22-30) mmol/L BUN 26 H 27 H (9-20) mg/dL Creatinine 1.93 H 2.16 H (0.66-1.25) mg/dL Glucose 107 H 112 H (74-99) mg/dL Calcium 8.0 L 8.3 L (8.4-10.2) mg/dL 08/23/21 Range/Units 06:49 RBC 2.39 L (4.30-5.90) m/uL Hgb 7.8 L (13.0-17.5) gm/dL Hct 25.0 L (39.0-53.0) % MCV 104.4 H (80.0-100.0) fL RDW 17.3 H (11.5-15.5) % Plt Count (150-450) k/uL Lymphocytes # (1.0-4.8) k/uL Lymphocytes # (Manual) 0.77 L (1.0-4.8) k/uL Metamyelocytes # (Man) 0.09 H (0) k/uL Myelocytes # (Manual) 0.09 H (0) k/uL Chloride (98-107) mmol/L Carbon Dioxide (22-30) mmol/L BUN (9-20) mg/dL Creatinine (0.66-1.25) mg/dL Glucose (74-99) mg/dL Calcium (8.4-10.2) mg/dL Microbiology - Last 24 Hours (Table) 08/17/21 14:45 Blood Culture - Preliminary Blood No Growth after 120 hours 08/18/21 07:48 Blood Culture - Preliminary Blood No Growth after 96 hours Assessment and Plan Plan: Assessment: 1. Acute kidney injury mostly prerenal secondary to infection and cardiorenal syndrome. Creatinine was 2.7 on admission - renal function a little worse today from diuresis. CAT scan showed atrophic right kidney with multiple cysts. Left kidney showed cysts without any hydronephrosis. Trace proteinuria on UA. 2. Acute on chronic systolic CHF with ejection fraction of 40-45% and moderate pulmonary hypertension. 3. Volume overload. 4. Bacteremia likely secondary to central line infection with blood cultures positive for staph, Proteus, enterococcus and Klebsiella. On IV antibiotics. 5. Hypokalemia from diuresis. Replaced. 6. Hypomagnesemia from diuresis. Replaced. 7. Chronic kidney disease stage IIIb. Baseline creatinine near 1.5 secondary to nephrosclerosis. Patient's creatinine was higher when he was last seen outpatient about 3-4 months ago. 8. Acute GI bleed as well as epistaxis. Hemoglobin 7.8. Status post EGD and colonoscopy this admission. Has Rhino Rocket. ENT also following. Status post IV DDAVP given 08/21/2021. On Aranesp. Plan: Stop IV push Lasix. Start Lasix drip at 10 mL an hour. Continue to monitor renal function and urine output.
[2021-08-23] MEDS: FUROSEMIDE 100 MG in SODIUM CHLORIDE 0.9% 90 ML IV SCH ×2 (10:12→20:51)
--- NOTE | 2021-08-23 12:20 | P.PN ---
Subjective Progress Note Date: 08/23/21 CHIEF COMPLAINT: Hematochezia HISTORY OF PRESENT ILLNESS: The patient is a 71-year-old male status post p acemaker implantation over 2 weeks ago. He has been on blood thinners and has generalized malaise. He was admitted due to acute large GI bleed with moderate drop in Hgb from 15.6 baseline down to 9.4. Patient status post EGD that revealed diaphragmatic hiatal hernia, Martinez's esophagus and erosive esophagitis. Patient started on IV Lasix drip by nephrology. Patient sitting up at bedside chair. Patient reports no bowel movement. Per nursing records there is charted a bowel movement. No blood or black stools reported. Patient complaining of some left sided abdominal pain. Afebrile. Hemoglobin is up from 7.4-7.8 white count 8.6 creatinine slightly up at 2.16. Tagged RBC scan could not be completed due to lack of the product that is required to proceed with test. PHYSICAL EXAM: VITAL SIGNS: Reviewed GENERAL: Well-developed in no acute distress. HEENT: No sclera icterus. Extraocular movements grossly intact. Moist buccal mucosa. Head is atraumatic, normocephalic. Hears conversational speech. No nasal drainage. NECK: Supple without lymphadenopathy. CHEST: Non-labored respirations and equal bilateral excursions. CARDIOVASCULAR: Palpable 2+ radial pulses. ABDOMEN: Soft. obese. Left-sided abdominal tenderness with palpation MUSCULOSKELETAL: No clubbing or cyanosis. NEUROLOGIC: No focal or lateralizing signs. Cranial nerves II through XII grossly intact. PSYCH: Appropriate affect. Alert and oriented to person, place and time. SKIN: Well perfused. Good skin turgor. ASSESSMENT: 1. Acute GI bleed 2. Gastroesophageal reflux disease 3. Diaphragmatic hiatal hernia 4. Martinez's esophagus 5. Atrial fibrillation had been on the Eliquis 6. Chronic systolic heart failure 7. acute on Chronic kidney disease 8. Epistaxis 9. Colonoscopy with evidence of bleeding diverticulosis including small bowel bleed PLAN: -Lower endoscopy findings consistent with bleeding diverticulosis including small bowel bleed. Patient's extremely high risk for rebleed with anticoagulants. At this time, patient not felt to be a candidate for further anticoagulation due to high risk for bleeding. -Continue supportive care -Continue to monitor hemoglobin -continue PPI -Diuretic management per nephrology Physician Circle Shear Operator note has been reviewed by physician. Signing provider agrees with the documented findings, assessment, and plan of care. Objective - Vital Signs Vital signs: Vital Signs Temp 98.1 F 08/23/21 04:00 Pulse 119 H 08/23/21 08:00 Resp 18 08/23/21 08:00 BP 118/85 08/23/21 08:00 Pulse Ox 92 L 08/23/21 08:00 Intake & Output 08/22/21 08/23/21 08/23/21 18:59 06:59 18:59 Intake Total 730 240 Output Total 1 Balance 729 240 Intake: Oral 730 240 Output: Urine 1 Other: Voiding Method Urinal Urinal # Voids 3 # Bowel Movements 1 - Labs CBC & Chem 7: 08/23/21 06:49 08/23/21 06:49 Labs: Abnormal Lab Results - Last 24 Hours (Table) 08/22/21 08/22/21 08/23/21 Range/Units 11:45 11:45 06:49 RBC 2.31 L (4.30-5.90) m/uL Hgb 7.4 L (13.0-17.5) gm/dL Hct 23.3 L (39.0-53.0) % MCV 101.0 H D (80.0-100.0) fL RDW 17.3 H (11.5-15.5) % Plt Count 137 L (150-450) k/uL Lymphocytes # 0.6 L (1.0-4.8) k/uL Lymphocytes # (Manual) (1.0-4.8) k/uL Metamyelocytes # (Man) (0) k/uL Myelocytes # (Manual) (0) k/uL Chloride 111 H 111 H (98-107) mmol/L Carbon Dioxide 20 L 20 L (22-30) mmol/L BUN 26 H 27 H (9-20) mg/dL Creatinine 1.93 H 2.16 H (0.66-1.25) mg/dL Glucose 107 H 112 H (74-99) mg/dL Calcium 8.0 L 8.3 L (8.4-10.2) mg/dL 08/23/21 Range/Units 06:49 RBC 2.39 L (4.30-5.90) m/uL Hgb 7.8 L (13.0-17.5) gm/dL Hct 25.0 L (39.0-53.0) % MCV 104.4 H (80.0-100.0) fL RDW 17.3 H (11.5-15.5) % Plt Count (150-450) k/uL Lymphocytes # (1.0-4.8) k/uL Lymphocytes # (Manual) 0.77 L (1.0-4.8) k/uL Metamyelocytes # (Man) 0.09 H (0) k/uL Myelocytes # (Manual) 0.09 H (0) k/uL Chloride (98-107) mmol/L Carbon Dioxide (22-30) mmol/L BUN (9-20) mg/dL Creatinine (0.66-1.25) mg/dL Glucose (74-99) mg/dL Calcium (8.4-10.2) mg/dL Microbiology - Last 24 Hours (Table) 08/18/21 07:48 Blood Culture - Preliminary Blood No Growth after 120 hours 08/17/21 14:45 Blood Culture - Preliminary Blood No Growth after 120 hours
--- NOTE | 2021-08-23 13:52 | P.PN ---
Subjective Progress Note Date: 08/23/21 Principal diagnosis: GI bleeding States that he feels terrible today because of the diffuse swelling all over his extremities. He is weak. No nausea or vomiting. No fevers. Objective - Vital Signs Vital signs: Vital Signs Temp 98.1 F 08/23/21 04:00 Pulse 119 H 08/23/21 08:00 Resp 18 08/23/21 08:00 BP 118/85 08/23/21 08:00 Pulse Ox 92 L 08/23/21 08:00 Intake & Output 08/22/21 08/23/21 08/23/21 18:59 06:59 18:59 Intake Total 730 240 Output Total 1 Balance 729 240 Intake: Oral 730 240 Output: Urine 1 Other: Voiding Method Urinal Urinal # Voids 3 # Bowel Movements 1 - Exam Gen: awake, alert HEENT: normocephalic, atraumatic, good hearing acuity, moist mucous membranes Resp: good air exchange, breathing comfortably with no accessory muscle use CVS: good distal perfusion x 4, RRR, no murmurs GI: soft, NTTP, ND : no SPT, no CVAT, esquivel catheter not present MSK: +pitting edema, no clubbing Neuro: non-focal, moving all extremities Psych: cooperative, euthymic mood - Labs CBC & Chem 7: 08/23/21 06:49 08/23/21 06:49 Labs: Abnormal Lab Results - Last 24 Hours (Table) 08/23/21 08/23/21 Range/Units 06:49 06:49 RBC 2.39 L (4.30-5.90) m/uL Hgb 7.8 L (13.0-17.5) gm/dL Hct 25.0 L (39.0-53.0) % MCV 104.4 H (80.0-100.0) fL RDW 17.3 H (11.5-15.5) % Lymphocytes # (Manual) 0.77 L (1.0-4.8) k/uL Metamyelocytes # (Man) 0.09 H (0) k/uL Myelocytes # (Manual) 0.09 H (0) k/uL Chloride 111 H (98-107) mmol/L Carbon Dioxide 20 L (22-30) mmol/L BUN 27 H (9-20) mg/dL Creatinine 2.16 H (0.66-1.25) mg/dL Glucose 112 H (74-99) mg/dL Calcium 8.3 L (8.4-10.2) mg/dL Microbiology - Last 24 Hours (Table) 08/18/21 07:48 Blood Culture - Preliminary Blood No Growth after 120 hours 08/17/21 14:45 Blood Culture - Preliminary Blood No Growth after 120 hours Assessment and Plan Plan: Acute GI bleeding Acute symptomatic anemia secondary to GI bleeding Epistaxis Monitor hemoglobin, trending down currently, will continue to trend Blood transfusion, fresh frozen plasma transfusion Will permanently discontinue Eliquis per GI risk of rebleeding high Patient given kcentra and tranexamic surgery consultation Fall precautions Gen. surgery consultation, s/p Colonoscopy on 08/16, which showed severe sigmoid diverticulosis with recent bleeding and grade 3 internal hemorrhoids with recent inflammation EGD did not identify source of bleed, no gastritis. Reports colonoscopy 2 years ago is unremarkable ENT consulted, nose packed. Left Foot Cellulitis Right Central Line Associated Blood Stream Infection cefazolin 1g q8h started 08/15, then broadened to vancomycin on 08/16, then added ceftriaxone on 08/17 femoral central line removed, tip Cx as below PICC line, needs 2 weeks of vancomycin and Rocephin per ID Follow for identification and sensitivities: -Blood Cx 08/16 - staph epidermidis, Klebsiella (R - ampicillin, tetracycline, bactrim), enterococcus (R - erythromycin, tetracycline), proteus (R - tetra cycline) -Blood Cx 08/17 - NGTD -Blood Cx 08/18 - NGTD -Wound Cx 08/16 - proteus, R- tetracycline -Catheter tip 08/16 - proteus, R - tetracycline Bilateral skin changes of the legs due to venous stasis ulcers/anasarca Acute systolic CHF Started on lasix gtt by nephrology, follow urine output. Acute kidney injury on CKD -mostly prerenal secondary to infection and cardiorenal syndrome -Nephrology following Paroxysmal A. fib status post pacemaker on Eliquis CKD Hypertension History of CAD status post stents 10 years ago Resume home medications Hold ASPIRIN and Eliquis LE duplex of left leg, neg for DVT wound care Full code DVT prophylaxis mechanical GI prophylaxis Protonix
--- NOTE | 2021-08-23 20:03 | PN ---
PROGRESS NOTE DATE OF SERVICE: 08/22/2021. SUBJECTIVE: Vital signs are stable. The patient has not had any further significant bleeding from the right or left naris. He states that he is able to tolerate the Rhino-rocket without any problems. He remains in a somewhat weakened state, most likely because of his low hemoglobin. OBJECTIVE: Examination of the nasal packing reveals that it is intact and appears to be dry. I do not see any evidence of any bleeding around the packing. Examination of oropharynx reveals no evidence of any bleeding down the posterior pharyngeal wall. The remainder of the head and neck exam is unremarkable. ASSESSMENT: Right anterior posterior epistaxis. PLAN: I will continue to see the patient on a daily basis. Assuming no further bleeding, I plan to deflate the balloons on the Rhino-rocket on Saturday but leave the Rhino- rocket in place. If when I see the patient on Saturday he has not had any further bleeding, then I will remove the Rhino-rocket and start the patient on Afrin nasal spray. I am assuming that the patient's other medical problems will most likely keep him here through that period if not beyond. MMODL / IJN: [id number] / MTDD
--- NOTE | 2021-08-23 20:10 | PN ---
PROGRESS NOTE DATE OF SERVICE: 08/23/2021. SUBJECTIVE: Vital signs are stable. The patient has not exhibited any further bleeding and still is able to tolerate the Rhino-rocket in his right naris without any problem. OBJECTIVE: Examination of the Rhino-rocket reveals no evidence of any bleeding around the packing. Examination of oropharynx does not reveal any evidence of bleeding down the posterior pharyngeal wall. The remainder of the head and neck exam is unremarkable. ASSESSMENT: Right anterior posterior epistaxis. PLAN: I will continue to see the patient on a daily basis and, as I mentioned before, I plan on leaving the packing in and deflating the balloons on the Rhino-rocket on Saturday. If upon re-examination on Saturday there is no further bleeding, then I will remove the Rhino-rocket and begin the patient on Afrin nasal spray. MMODL / IJN: [id number] / MTDD
[2021-08-23] MEDS: ALPRAZolam 1 MG TAB PO SCH (20:51)
[2021-08-24] MEDS: HYDROcodone/APAP 5-325MG 1 EACH TAB PO PRN ×3 (02:38→17:41)
[2021-08-24] MEDS ORDERED: MORPHINE SULFATE 2 MG/ML SYRINGE IVP ONE (05:15)
[2021-08-24] MEDS: FUROSEMIDE 100 MG in SODIUM CHLORIDE 0.9% 90 ML IV SCH ×3 (05:38→20:45)
[2021-08-24 07:42] LABS: Calcium 7.8 mg/dL (8.4-10.2); Magnesium 1.9 mg/dL (1.6-2.3); Potassium 3.4 mmol/L (3.5-5.1)
[2021-08-24] MEDS: PANTOPRAZOLE 40 MG/10 ML VIAL IV SCH (08:17)
[2021-08-24] MEDS: allopurinoL 100 MG TAB PO SCH (08:18)
[2021-08-24] MEDS: METOPROLOL TARTRATE 25 MG TAB PO SCH ×3 (08:18→20:44)
[2021-08-24] MEDS: AMIODARONE 200 MG TAB PO SCH ×2 (08:18→20:44)
[2021-08-24] MEDS: ATORVASTATIN 80 MG TAB PO SCH (08:18)
[2021-08-24] MEDS: SIMETHICONE 80 MG CHEWABLE PO SCH ×4 (08:18→20:44)
[2021-08-24] MEDS ORDERED: POTASSIUM CHLORIDE ER 20 MEQ TAB.ER PO STA (08:31)
--- NOTE | 2021-08-24 09:14 | P.PN ---
Subjective Patient is seen in follow-up for acute kidney injury on chronic kidney disease. Renal function fairly stable. On Lasix drip. Urine output 3.6 L in the last 24 hours. Oral intake fair. Edema improved. Vital signs are stable. HEENT: Nasal packing noted. LUNGS: Breath sounds decreased. HEART: Rate and Rhythm are regular. ABDOMEN: Soft, obese. EXTREMITITES: 1+ edema. Lower extremities wrapped. Objective - Vital Signs Vital signs: Vital Signs Temp 98 F 08/24/21 04:00 Pulse 82 08/24/21 08:00 Resp 16 08/24/21 08:00 BP 97/64 08/24/21 08:00 Pulse Ox 92 L 08/24/21 08:01 Intake & Output 08/23/21 08/24/21 08/24/21 18:59 06:59 18:59 Intake Total 920 887.833 Output Total 3600 Balance 920 -2712.167 Weight 129.5 kg Intake: Intake, IV Titration 680 287.833 Amount DAPTOmycin 750 mg In 100 Sodium Chloride 0.9% 50 ml @ 100 mls/hr IVPB Q24HR [facility] Rx#:[id number] Furosemide 100 mg In 80 187.833 Sodium Chloride 0.9% 90 ml @ 10 MG/HR 10 mls/hr IV .Q10H [facility] Rx#: [id number] Sodium Chloride 0.9% 500 400 ml 500 ml @ 0 mls/hr IV . [facility] Rx#: [id number] cefTRIAXone 2 gm In 100 100 Sodium Chloride 0.9% 50 ml @ 100 mls/hr IVPB Q24HR [facility] Rx#:[id number] Oral 240 600 Output: Urine 3600 Other: Voiding Method Urinal Urinal # Voids 2 - Labs CBC & Chem 7: 08/23/21 06:49 08/24/21 07:04 Labs: Abnormal Lab Results - Last 24 Hours (Table) 08/24/21 Range/Units 07:04 Potassium 3.4 L (3.5-5.1) mmol/L Chloride 108 H (98-107) mmol/L BUN 28 H (9-20) mg/dL Creatinine 2.26 H (0.66-1.25) mg/dL Calcium 7.8 L (8.4-10.2) mg/dL Microbiology - Last 24 Hours (Table) 08/17/21 14:45 Blood Culture - Final Blood No Growth after 144 hours 08/18/21 07:48 Blood Culture - Preliminary Blood No Growth after 120 hours Assessment and Plan Plan: Assessment: 1. Acute kidney injury mostly prerenal secondary to infection and cardiorenal syndrome. Renal function fairly stable. Creatinine 2.26 today. CAT scan showed atrophic right kidney with multiple cysts. Left kidney showed cysts without any hydronephrosis. Trace proteinuria on UA. 2. Acute on chronic systolic CHF with ejection fraction of 40-45% and moderate pulmonary hypertension. 3. Volume overload. Improving with diuresis. 4. Bacteremia likely secondary to central line infection with blood cultures positive for staph, Proteus, enterococcus and Klebsiella. On IV antibiotics. 5. Hypokalemia from diuresis. 6. Hypomagnesemia from diuresis. Replaced. Better. 7. Chronic kidney disease stage IIIb. Baseline creatinine near 1.5 secondary to nephrosclerosis. Patient's creatinine was higher when he was last seen outpatient about 3-4 months ago. 8. Acute GI bleed as well as epistaxis. Hemoglobin 7.8 yesterday. Status post EGD and colonoscopy this admission. Has Rhino Rocket. ENT also following. Status post IV DDAVP given 08/21/2021. On Aranesp. Plan: Maintain Lasix drip at 10 mL an hour. Continue to monitor renal function and urine output. Replace potassium. Check chest x-ray.
[2021-08-24] MEDS: DAPTOmycin 750 MG in SODIUM CHLORIDE 0.9% 50 ML IVPB SCH (09:43)
--- NOTE | 2021-08-24 12:07 | P.PN ---
Subjective Progress Note Date: 08/24/21 Principal diagnosis: GI bleeding Patient still feeling weak. However feeling better today. No fevers or chills. No pain. The swelling in his extremities is coming down. Objective - Vital Signs Vital signs: Vital Signs Temp 98 F 08/24/21 04:00 Pulse 82 08/24/21 08:00 Resp 16 08/24/21 08:00 BP 97/64 08/24/21 08:00 Pulse Ox 92 L 08/24/21 08:01 Intake & Output 08/23/21 08/24/21 08/24/21 18:59 06:59 18:59 Intake Total 920 887.833 47.833 Output Total 3600 Balance 920 -2712.167 47.833 Weight 129.5 kg Intake: Intake, IV Titration 680 287.833 47.833 Amount DAPTOmycin 750 mg In 100 Sodium Chloride 0.9% 50 ml @ 100 mls/hr IVPB Q24HR [facility] Rx#:[id number] Furosemide 100 mg In 80 187.833 47.833 Sodium Chloride 0.9% 90 ml @ 10 MG/HR 10 mls/hr IV .Q10H [facility] Rx#: [id number] Sodium Chloride 0.9% 500 400 ml 500 ml @ 0 mls/hr IV . [facility] Rx#: [id number] cefTRIAXone 2 gm In 100 100 Sodium Chloride 0.9% 50 ml @ 100 mls/hr IVPB Q24HR [facility] Rx#:[id number] Oral 240 600 Output: Urine 3600 Other: Voiding Method Urinal Urinal Urinal # Voids 2 - Exam Gen: awake, alert HEENT: normocephalic, atraumatic, good hearing acuity, moist mucous membranes Resp: good air exchange, breathing comfortably with no accessory muscle use CVS: good distal perfusion x 4, RRR, no murmurs GI: soft, NTTP, ND : no SPT, no CVAT, esquivel catheter not present MSK: +pitting edema, no clubbing Neuro: non-focal, moving all extremities Psych: cooperative, euthymic mood - Labs CBC & Chem 7: 08/23/21 06:49 08/24/21 07:04 Labs: Abnormal Lab Results - Last 24 Hours (Table) 08/24/21 Range/Units 07:04 Potassium 3.4 L (3.5-5.1) mmol/L Chloride 108 H (98-107) mmol/L BUN 28 H (9-20) mg/dL Creatinine 2.26 H (0.66-1.25) mg/dL Calcium 7.8 L (8.4-10.2) mg/dL Microbiology - Last 24 Hours (Table) 08/18/21 07:48 Blood Culture - Final Blood No Growth after 144 hours 08/17/21 14:45 Blood Culture - Final Blood No Growth after 144 hours Assessment and Plan Plan: Acute GI bleeding Acute symptomatic anemia secondary to GI bleeding Epistaxis Monitor hemoglobin, trending down currently, will continue to trend Blood transfusion, fresh frozen plasma transfusion Will permanently discontinue Eliquis per GI risk of rebleeding high Patient given kcentra and tranexamic surgery consultation Fall precautions Gen. surgery consultation, s/p Colonoscopy on 08/16, which showed severe sigmoid diverticulosis with recent bleeding and grade 3 internal hemorrhoids with recent inflammation EGD did not identify source of bleed, no gastritis. Reports colonoscopy 2 years ago is unremarkable ENT consulted, nose packed. Left Foot Cellulitis Right Central Line Associated Blood Stream Infection cefazolin 1g q8h started 08/15, then broadened to vancomycin on 08/16, then added ceftriaxone on 08/17 femoral central line removed, tip Cx as below PICC line, needs 2 weeks of vancomycin and Rocephin per ID Follow for identification and sensitivities: -Blood Cx 08/16 - staph epidermidis, Klebsiella (R - ampicillin, tetracycline, bactrim), enterococcus (R - erythromycin, tetracycline), proteus (R - tetracycline) -Blood Cx 08/17 - NGTD -Blood Cx 08/18 - NGTD -Wound Cx 08/16 - proteus, R- tetracycline -Catheter tip 08/16 - proteus, R - tetracycline Bilateral skin changes of the legs due to venous stasis ulcers/anasarca Acute systolic CHF Started on lasix gtt by nephrology 08/23, follow urine output. Continue lasix gtt Acute kidney injury on CKD mostly prerenal secondary to infection and cardiorenal syndrome -Creatinine was elevated, likely secondary to diuresis. -Nephrology following Paroxysmal A. fib status post pacemaker on Eliquis CKD Hypertension History of CAD status post stents 10 years ago Resume home medications Hold ASPIRIN and Eliquis LE duplex of left leg, neg for DVT wound care Full code DVT prophylaxis mechanical GI prophylaxis Protonix Anticipated disposition: Rehab in 1-2 days.
--- NOTE | 2021-08-24 12:08 | P.PN ---
Subjective Progress Note Date: 08/24/21 This is a 71-year-old patient being seen on [facility] for weeping edema and nonhealing ulcerations to bilateral lower extremities. Patient has blistering noted to the left lower extremity with SKIN intact at this time. He does have weeping edema noted. The right lower extremity has 2 ulcerations with fat layer exposure. Granulation seen throughout with minimal slough. With weeping edema noted. Patient's past medical history significant for atrial fibrillation, hyperlipidemia, hypertension, sleep apnea, chronic kidney disease stage III is lifelong nonsmoker. 08/24/2021: Was asked to reassess patient related to increased swelling and blistering to bilateral lower extremity. Nursing feels that the Edis wraps are making it worse. Patient needs to continue to elevate legs. The edema and blistering have increased to bilateral lower extremities. Compression and elevation to help with the edema. Continue with current dressings. Review Of Systems: Constitutional: No fever, no chills, no night sweats. No weight change. No weakness, fatigue or lethargy. No daytime sleepiness. Integumentary:reports wounds, no lesions. No rash or pruritus. No unusual bruising. No change in hair or nails. Physical exam: General Appearance: Alert, cooperative, no distress, appears stated age. Skin: See HPI all other Skin color, texture, tugor normal, no rashes or lesions. Neurologic: Alert oriented x3 Assessment: 1. Pressure ulcer right calf with fatty layer exposure 2. Chronic venous hypertension with ulceration and inflammation right lower extremity 3. Chronic venous hypertension with inflammation left lower extremity Plan: 1.Apply absorptive silver to blistered and open ulcerations, ABD, and rolled gauze and secure tape. Tubigrip for compression. May change outer dressings as needed if saturated. Thank you for the consultation any questions please contact the wound care center DNP note has been reviewed and discussed with Dr. Roy and the impression and plan of care has been directed as dictated. Objective - Vital Signs Vital signs: Vital Signs Temp 98 F 08/24/21 04:00 Pulse 82 08/24/21 08:00 Resp 16 08/24/21 08:00 BP 97/64 08/24/21 08:00 Pulse Ox 92 L 08/24/21 08:01 Intake & Output 08/23/21 08/24/21 08/24/21 18:59 06:59 18:59 Intake Total 920 887.833 47.833 Output Total 3600 Balance 920 -2712.167 47.833 Weight 129.5 kg Intake: Intake, IV Titration 680 287.833 47.833 Amount DAPTOmycin 750 mg In 100 Sodium Chloride 0.9% 50 ml @ 100 mls/hr IVPB Q24HR [facility] Rx#:[id number] Furosemide 100 mg In 80 187.833 47.833 Sodium Chloride 0.9% 90 ml @ 10 MG/HR 10 mls/hr IV .Q10H [facility] Rx#: [id number] Sodium Chloride 0.9% 500 400 ml 500 ml @ 0 mls/hr IV . [facility] Rx#: [id number] cefTRIAXone 2 gm In 100 100 Sodium Chloride 0.9% 50 ml @ 100 mls/hr IVPB Q24HR [facility] Rx#:[id number] Oral 240 600 Output: Urine 3600 Other: Voiding Method Urinal Urinal Urinal # Voids 2 - Labs CBC & Chem 7: 08/23/21 06:49 08/24/21 07:04 Labs: Abnormal Lab Results - Last 24 Hours (Table) 08/24/21 Range/Units 07:04 Potassium 3.4 L (3.5-5.1) mmol/L Chloride 108 H (98-107) mmol/L BUN 28 H (9-20) mg/dL Creatinine 2.26 H (0.66-1.25) mg/dL Calcium 7.8 L (8.4-10.2) mg/dL Microbiology - Last 24 Hours (Table) 08/18/21 07:48 Blood Culture - Final Blood No Growth after 144 hours 08/17/21 14:45 Blood Culture - Final Blood No Growth after 144 hours Assessment and Plan (1) Non-pressure chronic ulcer of right calf with fat layer exposed Current Visit: Yes Status: Acute Code(s): L97.212 - NON-PRESSURE CHRONIC ULCER OF RIGHT CALF W FAT LAYER EXPOSED SNOMED Code(s): 05300337988251895 (2) Chronic venous hypertension (idiopathic) with ulcer and inflammation of right lower extremity Current Visit: Yes Status: Acute Code(s): I87.331 - CHRONIC VENOUS HTN W ULCER AND INFLAMMATION OF R LOW EXTREM; L97.919 - NON-PRS CHRONIC ULC UNSP PRT OF R LOW LEG W UNSP SEVERITY SNOMED Code(s): 564660717115933 (3) Chronic venous hypertension (idiopathic) with inflammation of left lower extremity Current Visit: Yes Status: Acute Code(s): I87.322 - CHRONIC VENOUS HYPERTENSION W INFLAMMATION OF L LOW EXTREM SNOMED Code(s): 115820661
--- NOTE | 2021-08-24 13:21 | XR ---
EXAMINATION TYPE: XR chest 1V DATE OF EXAM: 08/24/2021 COMPARISON: 08/11/2021, 04/12/2016 INDICATION: Short of breath, edema TECHNIQUE: Single frontal view of the chest is obtained. FINDINGS: The heart size is enlarged. The pulmonary vasculature is normal. The lungs are clear. There is elevation of the right diaphragm. Pacemaker overlies left chest. PICC line enters on the right with the tip in the proximal right atriu m. IMPRESSION: 1. Cardiomegaly. 2. Chronic right diaphragm elevation
[2021-08-24] MEDS: ALPRAZolam 1 MG TAB PO SCH (20:44)
--- NOTE | 2021-08-24 23:10 | P.PN ---
Subjective Progress Note Date: 08/23/21 Principal diagnosis: Bacteremia Patient is a 71-year-old male admitted to the hospital about a week ago for evaluation of bleeding per rectum and weakness the patient did have a right groin central line with the patient was noticed to have some purulent drainage which has been discontinued blood culture positive with multiple pathogen. On today's evaluation is 08/23/2021, patient continues to be afebrile, the patient is breathing comfortably on room air, the patient denies chest pain or cough, the patient denies abdominal pain no diarrhea, the patient did have swe lling to the lower extremity but denies any pain Objective - Vital Signs Vital signs: Vital Signs Temp 98.1 F 08/23/21 04:00 Pulse 119 H 08/23/21 08:00 Resp 18 08/23/21 08:00 BP 118/85 08/23/21 08:00 Pulse Ox 92 L 08/23/21 08:00 Intake & Output 08/22/21 08/23/21 08/23/21 18:59 06:59 18:59 Intake Total 730 Output Total 1 Balance 729 Intake: Oral 730 Output: Urine 1 Other: Voiding Method Urinal # Voids 3 # Bowel Movements 1 - Exam GENERAL DESCRIPTION: An elderly male lying in bed in no distress RESPIRATORY SYSTEM: Unlabored breathing , decreased breath sounds at bases HEART: S1 S2 regular rate and rhythm , ABDOMEN: Soft , no tenderness EXTREMITIES: Bilateral legs are currently wrapped in Edis wrap, there is No drainage dressing - Labs CBC & Chem 7: 08/23/21 06:49 08/24/21 07:04 Labs: Abnormal Lab Results - Last 24 Hours (Table) 08/22/21 08/22/21 08/23/21 Range/Units 11:45 11:45 06:49 RBC 2.31 L (4.30-5.90) m/uL Hgb 7.4 L (13.0-17.5) gm/dL Hct 23.3 L (39.0-53.0) % MCV 101.0 H D (80.0-100.0) fL RDW 17.3 H (11.5-15.5) % Plt Count 137 L (150-450) k/uL Lymphocytes # 0.6 L (1.0-4.8) k/uL Lymphocytes # (Manual) (1.0-4.8) k/uL Metamyelocytes # (Man) (0) k/uL Myelocytes # (Manual) (0) k/uL Chloride 111 H 111 H (98-107) mmol/L Carbon Dioxide 20 L 20 L (22-30) mmol/L BUN 26 H 27 H (9-20) mg/dL Creatinine 1.93 H 2.16 H (0.66-1.25) mg/dL Glucose 107 H 112 H (74-99) mg/dL Calcium 8.0 L 8.3 L (8.4-10.2) mg/dL 08/23/21 Range/Units 06:49 RBC 2.39 L (4.30-5.90) m/uL Hgb 7.8 L (13.0-17.5) gm/dL Hct 25.0 L (39.0-53.0) % MCV 104.4 H (80.0-100.0) fL RDW 17.3 H (11.5-15.5) % Plt Count (150-450) k/uL Lymphocytes # (1.0-4.8) k/uL Lymphocytes # (Manual) 0.77 L (1.0-4.8) k/uL Metamyelocytes # (Man) 0.09 H (0) k/uL Myelocytes # (Manual) 0.09 H (0) k/uL Chloride (98-107) mmol/L Carbon Dioxide (22-30) mmol/L BUN (9-20) mg/dL Creatinine (0.66-1.25) mg/dL Glucose (74-99) mg/dL Calcium (8.4-10.2) mg/dL Microbiology - Last 24 Hours (Table) 08/17/21 14:45 Blood Culture - Preliminary Blood No Growth after 120 hours 08/18/21 07:48 Blood Culture - Preliminary Blood No Growth after 96 hours Assessment and Plan (1) Bacteremia Current Visit: Yes Status: Acute Code(s): R78.81 - BACTEREMIA SNOMED Code(s): 3942857 Plan: Patient with polymicrobial bacteremia concern for right femoral central line which has been discontinued, , catheter tip cultures finalized his Proteus, blood culture positive for enterococcus Klebsiella and Proteus, groin culture with Proteus patient antibiotic was switched to daptomycin because of his worsening kidney function to continue along with Rocephin and monitor his clinical course closely Time with Patient: Less than 30
--- NOTE | 2021-08-24 23:12 | P.PN ---
Subjective Progress Note Date: 08/24/21 Principal diagnosis: Bacteremia Patient is a 71-year-old male admitted to the hospital about a week ago for evaluation of bleeding per rectum and weakness the patient did have a right groin central line with the patient was noticed to have some purulent drainage which has been discontinued blood culture positive with multiple pathogen. On today's evaluation is 08/24/2021, patient remains to be afebrile, the patient is breathing comfortably on room air, the patient denies chest pain or cough, the patient denies abdominal pain no diarrhea, no further epistaxis has been reported, the patient has significant swelling to lower extremity and some clear drainage Objective - Vital Signs Vital signs: Vital Signs Temp 97.3 F L 08/24/21 12:00 Pulse 82 08/24/21 08:00 Resp 16 08/24/21 12:00 BP 96/64 08/24/21 12:00 Pulse Ox 95 08/24/21 12:00 Intake & Output 08/23/21 08/24/21 08/24/21 18:59 06:59 18:59 Intake Total 920 887.833 287.833 Output Total 3600 650 Balance 920 -2712.167 -362.167 Weight 129.5 kg Intake: Intake, IV Titration 680 287.833 47.833 Amount DAPTOmycin 750 mg In 100 Sodium Chloride 0.9% 50 ml @ 100 mls/hr IVPB Q24HR [facility] Rx#:[id number] Furosemide 100 mg In 80 187.833 47.833 Sodium Chloride 0.9% 90 ml @ 10 MG/HR 10 mls/hr IV .Q10H [facility] Rx#: [id number] Sodium Chloride 0.9% 500 400 ml 500 ml @ 0 mls/hr IV . [facility] Rx#: [id number] cefTRIAXone 2 gm In 100 100 Sodium Chloride 0.9% 50 ml @ 100 mls/hr IVPB Q24HR [facility] Rx#:[id number] Oral 240 600 240 Output: Urine 3600 650 Other: Voiding Method Urinal Urinal Urinal # Voids 2 - Exam GENERAL DESCRIPTION: An elderly male lying in bed in no distress RESPIRATORY SYSTEM: Unlabored breathing , decreased breath sounds at bases HEART: S1 S2 regular rate and rhythm , ABDOMEN: Soft , no tenderness EXTREMITIES: Bilateral lower extremity with swelling and some blister formation no significant redness - Labs CBC & Chem 7: 08/23/21 06:49 08/24/21 07:04 Labs: Abnormal Lab Results - Last 24 Hours (Table) 08/24/21 Range/Units 07:04 Potassium 3.4 L (3.5-5.1) mmol/L Chloride 108 H (98-107) mmol/L BUN 28 H (9-20) mg/dL Creatinine 2.26 H (0.66-1.25) mg/dL Calcium 7.8 L (8.4-10.2) mg/dL Microbiology - Last 24 Hours (Table) 08/18/21 07:48 Blood Culture - Final Blood No Growth after 144 hours 08/17/21 14:45 Blood Culture - Final Blood No Growth after 144 hours Assessment and Plan (1) Bacteremia Current Visit: Yes Status: Acute Code(s): R78.81 - BACTEREMIA SNOMED Code(s): 4390666 Plan: Patient with polymicrobial bacteremia concern for right femoral central line which has been discontinued, , catheter tip cultures finalized his Proteus, blood culture positive for enterococcus Klebsiella and Proteus, groin culture with Proteus patient , patient did have worsening of his kidney function, patient is currently covered with daptomycin and Rocephin to continue while mon itoring his clinical course closely Time with Patient: Less than 30
[2021-08-25] MEDS: FUROSEMIDE 100 MG in SODIUM CHLORIDE 0.9% 90 ML IV SCH (01:06)
[2021-08-25 06:57] LABS: Anisocytosis Slight; HCT 25.4 % (39.0-53.0); Hypochromasia Marked; MCH 31.9 pg (25.0-35.0); MCHC 31.7 g/dL (31.0-37.0); MCV 100.9 fL (80.0-100.0); Macrocytosis Moderate; Mean Platelet Volume 8.1; Platelet Count 202 k/uL (150-450); Poikilocytosis Moderate; RBC 2.51 m/uL (4.30-5.90); RDW 17.8 % (11.5-15.5)
[2021-08-25 07:05] LABS: Magnesium 1.9 mg/dL (1.6-2.3); Potassium 3.9 mmol/L (3.5-5.1)
[2021-08-25] MEDS: PANTOPRAZOLE 40 MG/10 ML VIAL IV SCH (09:22)
[2021-08-25] MEDS: AMIODARONE 200 MG TAB PO SCH ×2 (09:23→21:36)
[2021-08-25] MEDS: METOPROLOL TARTRATE 25 MG TAB PO SCH ×3 (09:23→21:20)
[2021-08-25] MEDS: ATORVASTATIN 80 MG TAB PO SCH (09:23)
[2021-08-25] MEDS: allopurinoL 100 MG TAB PO SCH (09:23)
[2021-08-25] MEDS: SIMETHICONE 80 MG CHEWABLE PO SCH ×4 (09:23→21:36)
[2021-08-25 10:07] LABS: Lymphocytes # (M) 1.21 k/uL (1.0-4.8); Metamyelocytes % 1 %; Monocytes # (M) 0.61 k/uL (0-1.0); Myelocytes % 2 %; Neutrophils # (M) 7.88 k/uL (1.3-7.7); Neutrophils % (M) 78 %; Nucleated Red Blood Cells 3 /100 WBC (0-0); Total Cells Counted 200; WBC 10.1 k/uL (3.8-10.6)
[2021-08-25 10:08] LABS: Polychromasia Present
[2021-08-25 10:11] LABS: Crenated RBC Present
[2021-08-25] MEDS: DAPTOmycin 750 MG in SODIUM CHLORIDE 0.9% 50 ML IVPB SCH (10:26)
--- NOTE | 2021-08-25 11:20 | P.PN ---
Subjective Progress Note Date: 08/25/21 Principal diagnosis: GI bleeding Patient was confused yesterday. He pulled out the picc line. Currently still has a midline. Currently he is resting. Anasarca improved. Objective - Vital Signs Vital signs: Vital Signs Temp 97.8 F 08/25/21 08:00 Pulse 115 H 08/25/21 08:00 Resp 18 08/25/21 08:00 BP 111/78 08/25/21 08:00 Pulse Ox 97 08/25/21 08:00 Intake & Output 08/24/21 08/25/21 08/25/21 18:59 06:59 18:59 Intake Total 287.833 628.5 Output Total 650 1200 Balance -362.167 628.5 -1200 Intake: Intake, IV Titration 47.833 143.5 Amount Furosemide 100 mg In 47.833 143.5 Sodium Chloride 0.9% 90 ml @ 10 MG/HR 10 mls/hr IV .Q10H [facility] Rx#: [id number] Oral 240 485 Output: Urine 650 1200 Other: Voiding Method Urinal Indwelling Catheter # Bowel Movements 1 - Exam Gen: awake, alert HEENT: normocephalic, atraumatic, good hearing acuity, moist mucous membranes Resp: good air exchange, breathing comfortably with no accessory muscle use CVS: good distal perfusion x 4, RRR, no murmurs GI: soft, NTTP, ND : no SPT, no CVAT, esquivel catheter not present MSK: +pitting edema, no clubbing Neuro: non-focal, moving all extremities Psych: cooperative, euthymic mood - Labs CBC & Chem 7: 08/25/21 06:29 08/25/21 06:29 Labs: Abnormal Lab Results - Last 24 Hours (Table) 08/25/21 08/25/21 Range/Units 06:29 06:29 RBC 2.51 L (4.30-5.90) m/uL Hgb 8.0 L (13.0-17.5) gm/dL Hct 25.4 L (39.0-53.0) % MCV 100.9 H (80.0-100.0) fL RDW 17.8 H (11.5-15.5) % Neutrophils # (Manual) 7.88 H (1.3-7.7) k/uL Metamyelocytes # (Man) 0.10 H (0) k/uL Myelocytes # (Manual) 0.20 H (0) k/uL Nucleated RBCs 3 H (0-0) /100 WBC Chloride 108 H (98-107) mmol/L BUN 34 H (9-20) mg/dL Creatinine 2.72 H (0.66-1.25) mg/dL Calcium 8.0 L (8.4-10.2) mg/dL Microbiology - Last 24 Hours (Table) 08/18/21 07:48 Blood Culture - Final Blood No Growth after 144 hours Assessment and Plan Plan: Acute GI bleeding Acute symptomatic anemia secondary to GI bleeding stable, continue to monitor hemoglobin Recieved blood transfusion, fresh frozen plasma transfusion, kcentra and tranexamic Will permanently discontinue Eliquis per GI risk of rebleeding too high per surgery. EGD did not identify source of bleed, no gastritis. Colonoscopy showed internal hemorrhoids, grade 2 with recent inflammation, severe sigmoid diverticulosis with recent bleeding. Recent bleeding was found within the ileocecal valve consistent with small bowel bleed. No active colonic bleeding found. Colonic polyps were found at proximal transverse colon 3 however unresected due to moderate to severe thrombocytopenia and gastrointestinal bleeding. Epistaxis ENT consulted, nose packed. Followed by ENT, no further bleeding after the packing. Left Foot Cellulitis Right femoral central Line Associated Blood Stream Infection cefazolin 1g q8h started 08/15, then broadened to vancomycin on 08/16, then added ceftriaxone on 08/17 femoral central line removed, tip Cx as below PICC line, needs 2 weeks of vancomycin and Rocephin per ID Follow for identification and sensitivities: -Blood Cx 08/16 - staph epidermidis, Klebsiella (R - ampicillin, tetracycline, bactrim), enterococcus (R - erythromycin, tetracycline), proteus (R - tetracycline) -Blood Cx 08/17 - NGTD -Blood Cx 08/18 - NGTD -Wound Cx 08/16 - proteus, R- tetracycline -Catheter tip 08/16 - proteus, R - tetracycline 08/25: patient pulled out picc line, still has the midline. Will continue abx. ID following. Bilateral skin changes of the legs due to venous stasis ulcers/anasarca Acute systolic CHF Started on lasix gtt by nephrology 08/23, follow urine output. Continue lasix gtt 08/25: D/c lasix as cr increased. Acute kidney injury on CKD mostly prerenal secondary to infection and cardiorenal syndrome -Creatinine was elevated, likely secondary to diuresis. -Nephrology following 08/25: cr worse, will d/c lasix gtt, follow in am. Paroxysmal A. fib status post pacemaker on Eliquis CKD Hypertension History of CAD status post stents 10 years ago Resume home medications Hold ASPIRIN and Eliquis LE duplex of left leg, neg for DVT wound care Full code DVT prophylaxis mechanical GI prophylaxis Protonix Anticipated disposition: Rehab in 1-2 days.
--- NOTE | 2021-08-25 11:53 | P.PN ---
Subjective Patient is seen in follow-up for acute kidney injury on chronic kidney disease. Renal function worse from diuresis. On Lasix drip. Nonoliguric. Oral intake fair. Edema improving. Vital signs are stable. HEENT: Nasal packing noted. LUNGS: Breath sounds decreased. HEART: Rate and Rhythm are regular. ABDOMEN: Soft, obese. EXTREMITITES: 1+ edema. Lower extremities wrapped. Objective - Vital Signs Vital signs: Vital Signs Temp 97.8 F 08/25/21 08:00 Pulse 115 H 08/25/21 08:00 Resp 18 08/25/21 08:00 BP 111/78 08/25/21 08:00 Pulse Ox 97 08/25/21 08:00 Intake & Output 08/24/21 08/25/21 08/25/21 18:59 06:59 18:59 Intake Total 287.833 628.5 Output Total 650 1200 Balance -362.167 628.5 -1200 Intake: Intake, IV Titration 47.833 143.5 Amount Furosemide 100 mg In 47.833 143.5 Sodium Chloride 0.9% 90 ml @ 10 MG/HR 10 mls/hr IV .Q10H [facility] Rx#: [id number] Oral 240 485 Output: Urine 650 1200 Other: Voiding Method Urinal Indwelling Catheter # Bowel Movements 1 - Labs CBC & Chem 7: 08/25/21 06:29 08/25/21 06:29 Labs: Abnormal Lab Results - Last 24 Hours (Table) 08/25/21 08/25/21 Range/Units 06:29 06:29 RBC 2.51 L (4.30-5.90) m/uL Hgb 8.0 L (13.0-17.5) gm/dL Hct 25.4 L (39.0-53.0) % MCV 100.9 H (80.0-100.0) fL RDW 17.8 H (11.5-15.5) % Neutrophils # (Manual) 7.88 H (1.3-7.7) k/uL Metamyelocytes # (Man) 0.10 H (0) k/uL Myelocytes # (Manual) 0.20 H (0) k/uL Nucleated RBCs 3 H (0-0) /100 WBC Chloride 108 H (98-107) mmol/L BUN 34 H (9-20) mg/dL Creatinine 2.72 H (0.66-1.25) mg/dL Calcium 8.0 L (8.4-10.2) mg/dL Microbiology - Last 24 Hours (Table) 08/18/21 07:48 Blood Culture - Final Blood No Growth after 144 hours Assessment and Plan Plan: Assessment: 1. Acute kidney injury mostly prerenal secondary to infection and cardiorenal syndrome. Renal function worse from diuresis. Creatinine 2.72. CAT scan showed atrophic right kidney with multiple cysts. Left kidney showed cysts without any hydronephrosis. Trace proteinuria on UA. 2. Acute on chronic systolic CHF with ejection fraction of 40-45% and moderate pulmonary hypertension. 3. Volume overload. Improving with diuresis. 4. Bacteremia likely secondary to central line infection with blood cultures positive for staph, Proteus, enterococcus and Klebsiella. On IV antibiotics. 5. Hypokalemia from diuresis. Replaced. Better. 6. Hypomagnesemia from diuresis. Replaced. Better. 7. Chronic kidney disease stage IIIb. Baseline creatinine near 1.5 secondary to nephrosclerosis. Patient's creatinine was higher when he was last seen outpatient about 3-4 months ago. 8. Acute GI bleed as well as epistaxis. Hemoglobin 8.0 today. Status post EGD and colonoscopy this admission. Has Rhino Rocket. ENT also following. Status post IV DDAVP given 08/21/2021. On Aranesp. Plan: Stop Lasix drip. Add oral Lasix 40 mg twice daily. Continue to monitor renal function and urine output.
[2021-08-25] MEDS: FUROSEMIDE 40 MG TAB PO SCH (14:48)
--- NOTE | 2021-08-25 15:35 | P.PN ---
Subjective Progress Note Date: 08/25/21 Principal diagnosis: Bacteremia Patient is a 71-year-old male admitted to the hospital about a week ago for evaluation of bleeding per rectum and weakness the patient did have a right groin central line with the patient was noticed to have some purulent drainage which has been discontinued blood culture positive with multiple pathogen. On today's evaluation is 08/25/2021, patient continues to be afebrile, the patient did have slight worsening of his respiratory status and is currently requiring supplemental oxygen, the patient denies chest pain or cough, the suman ent denies abdominal pain no diarrhea, no further epistaxis has been reported, the patient has significant swelling to lower extremity and some clear drainage Objective - Vital Signs Vital signs: Vital Signs Temp 97.8 F 08/25/21 08:00 Pulse 115 H 08/25/21 08:00 Resp 18 08/25/21 08:00 BP 111/78 08/25/21 08:00 Pulse Ox 97 08/25/21 08:00 Intake & Output 08/24/21 08/25/21 08/25/21 18:59 06:59 18:59 Intake Total 287.833 628.5 Output Total 650 1200 Balance -362.167 628.5 -1200 Intake: Intake, IV Titration 47.833 143.5 Amount Furosemide 100 mg In 47.833 143.5 Sodium Chloride 0.9% 90 ml @ 10 MG/HR 10 mls/hr IV .Q10H [facility] Rx#: [id number] Oral 240 485 Output: Urine 650 1200 Other: Voiding Method Urinal Indwelling Catheter # Bowel Movements 1 - Exam GENERAL DESCRIPTION: An elderly male lying in bed in no distress RESPIRATORY SYSTEM: Unlabored breathing , decreased breath sounds at bases HEART: S1 S2 regular rate and rhythm , ABDOMEN: Soft , no tenderness EXTREMITIES: Bilateral lower extremity with swelling and some blister formation no significant redness - Labs CBC & Chem 7: 08/25/21 06:29 08/25/21 06:29 Labs: Abnormal Lab Results - Last 24 Hours (Table) 08/25/21 08/25/21 Range/Units 06:29 06:29 RBC 2.51 L (4.30-5.90) m/uL Hgb 8.0 L (13.0-17.5) gm/dL Hct 25.4 L (39.0-53.0) % MCV 100.9 H (80.0-100.0) fL RDW 17.8 H (11.5-15.5) % Neutrophils # (Manual) 7.88 H (1.3-7.7) k/uL Metamyelocytes # (Man) 0.10 H (0) k/uL Myelocytes # (Manual) 0.20 H (0) k/uL Nucleated RBCs 3 H (0-0) /100 WBC Chloride 108 H (98-107) mmol/L BUN 34 H (9-20) mg/dL Creatinine 2.72 H (0.66-1.25) mg/dL Calcium 8.0 L (8.4-10.2) mg/dL Microbiology - Last 24 Hours (Table) 08/18/21 07:48 Blood Culture - Final Blood No Growth after 144 hours Assessment and Plan (1) Bacteremia Current Visit: Yes Status: Acute Code(s): R78.81 - BACTEREMIA SNOMED Code(s): 8941165 Plan: Patient with polymicrobial bacteremia concern for right femoral central line which has been discontinued, , catheter tip cultures finalized his Proteus, blood culture positive for enterococcus Klebsiella and Proteus, groin culture with Proteus patient , patient did have worsening of his kidney function, patient repeat blood culture were negative on 08/17/2021, patient is currently covered with daptomycin and Rocephin which will be continued to finish a two-w chinik course of therapy from his negative blood culture Time with Patient: Less than 30
[2021-08-25] MEDS: HYDROcodone/APAP 5-325MG 1 EACH TAB PO PRN (17:04)
[2021-08-25 20:12] LABS: Glucose,Whole Blood 89 mg/dL (75-99)
--- NOTE | 2021-08-25 20:59 | XR ---
EXAMINATION TYPE: XR chest 1V portable DATE OF EXAM: 08/25/2021 COMPARISON: 08/24/2021 HISTORY: Short of breath TECHNIQUE: Single view FINDINGS: There is some atelectasis at the lung bases. There is no heart failure. There is left axill ashish pacemaker. There are chest leads. Bony thorax appears intact. IMPRESSION: There is some atelectasis at the lung bases with poor inspiration. No heart failure seen. No significant change.
[2021-08-25] MEDS: ALPRAZolam 1 MG TAB PO SCH (21:20)
--- NOTE | 2021-08-25 22:35 | CT ---
EXAMINATION TYPE: CT abdomen pelvis wo con DATE OF EXAM: 08/25/2021 COMPARISON: 08/17/2021 HISTORY: RLQ pain CT DLP: 2408.2 mGycm Automated exposure control for dose reduction was used. Images obtained from the diaphragm to the floor the pelvis. There is some contrast material in the la rge bowel. There is some patchy and linear infiltrate and atelectasis in both lower lobes. Heart is enlarged. Th ere is no definite pleural effusion. Liver is intact. Spleen is intact. There is no pancreatic mass. There are some pancreatic atrophy. Stomach is intact. The bile ducts are not dilated. Gallbladder jessica ears absent. There is severe right renal cortical thinning. Left kidney shows multiple cortical cysts that measure up to 8 cm. There is no hydronephrosis. There is no retroperitoneal adenopathy. Ureters are not dila reza. There is metal artifact from bilateral hip prosthesis. There is contrast material down to the re ctum. There is no bowel obstruction. Urinary bladder not well evaluated. No evidence of a pelvic mass . There is no ascites. There is no sign of free air. There is no bowel obstruction. Appendix is posteri or and appears normal. The lumbar vertebrae show a first-degree L5-S1 spondylolisthesis with bilatera l L5 spondylolysis. There is no compression fracture is multilevel lumbar and thoracic spondylotic ch anges. IMPRESSION: There is some infiltrate or atelectasis at both lung bases without change. Mild pleural thickening at the lung bases without change. No acute abnormality within the abdomen and pelvis. No change compared to old exam.
[2021-08-26] MEDS: METOPROLOL TARTRATE 25 MG TAB PO SCH ×3 (08:01→21:00)
[2021-08-26] MEDS: ATORVASTATIN 80 MG TAB PO SCH (08:01)
[2021-08-26] MEDS: SIMETHICONE 80 MG CHEWABLE PO SCH ×4 (08:01→21:01)
[2021-08-26] MEDS: FUROSEMIDE 40 MG TAB PO SCH ×3 (08:01→17:07)
[2021-08-26] MEDS: PANTOPRAZOLE 40 MG/10 ML VIAL IV SCH (08:01)
[2021-08-26] MEDS: AMIODARONE 200 MG TAB PO SCH ×2 (08:01→21:00)
[2021-08-26] MEDS: allopurinoL 100 MG TAB PO SCH (08:01)
--- NOTE | 2021-08-26 09:25 | P.PN ---
Subjective Patient is seen in follow-up for acute kidney injury on chronic kidney disease. Morning labs pending. On oral Lasix. Nonoliguric. Complaining of abdominal discomfort. CT showed no acute changes. Vital signs are stable. HEENT: Nasal packing noted. On O2 mask. LUNGS: Breath sounds decreased. HEART: Rate and Rhythm are regular. ABDOMEN: Soft, obese. EXTREMITITES: 1+ edema. Lower extremities wrapped. Objective - Vital Signs Vital signs: Vital Signs Temp 98.2 F 08/25/21 20:00 Pulse 84 08/26/21 04:00 Resp 32 H 08/26/21 04:00 BP 103/60 08/26/21 04:00 Pulse Ox 95 08/26/21 04:00 Intake & Output 08/25/21 08/26/21 08/26/21 18:59 06:59 18:59 Intake Total 340 485 Output Total 1200 Balance -860 485 Intake: Intake, IV Titration 100 Amount cefTRIAXone 2 gm In 100 Sodium Chloride 0.9% 50 ml @ 100 mls/hr IVPB Q24HR [facility] Rx#:[id number] Oral 240 485 Output: Urine 1200 Other: Voiding Method Indwelling Catheter Indwelling Catheter - Labs CBC & Chem 7: 08/25/21 06:29 08/25/21 06:29 Labs: Abnormal Lab Results - Last 24 Hours (Table) 08/25/21 Range/Units 06:29 Neutrophils # (Manual) 7.88 H (1.3-7.7) k/uL Metamyelocytes # (Man) 0.10 H (0) k/uL Myelocytes # (Manual) 0.20 H (0) k/uL Nucleated RBCs 3 H (0-0) /100 WBC Assessment and Plan Plan: Assessment: 1. Acute kidney injury mostly prerenal secondary to infection and cardiorenal syndrome. Renal function worse from diuresis. Creatinine 2.72 yesterday. CAT scan showed atrophic right kidney with multiple cysts. Left kidney showed cysts without any hydronephrosis. Trace proteinuria on UA. 2. Acute on chronic systolic CHF with ejection fraction of 40-45% and moderate pulmonary hypertension. 3. Volume overload. Improving with diuresis. 4. Bacteremia likely secondary to central line infection with blood cultures positive for staph, Proteus, enterococcus and Klebsiella. On IV antibiotics. 5. Hypokalemia from diuresis. Replaced. Better. 6. Hypomagnesemia from diuresis. Replaced. Better. 7. Chronic kidney disease stage IIIb. Baseline creatinine near 1.5 secondary to nephrosclerosis. Patient's creatinine was higher when he was last seen outpatient about 3-4 months ago. 8. Acute GI bleed as well as epistaxis. Hemoglobin 8.0 yesterday. Status post EGD and colonoscopy this admission. Has Rhino Rocket. ENT also following. Status post IV DDAVP given 08/21/2021. On Aranesp. Plan: Maintain oral Lasix 40 mg twice daily. Continue to monitor renal function and urine output. Morning labs pending.
[2021-08-26 09:31] LABS: Anisocytosis Slight; Basophils % (A) 0 %; Eosinophils # (A) 0.1 k/uL (0-0.7); Eosinophils % (A) 1 %; HCT 25.9 % (39.0-53.0); HGB 7.9 gm/dL (13.0-17.5); Hypochromasia Marked; Lymphocytes # (A) 0.5 k/uL (1.0-4.8); Lymphocytes % (A) 8 %; MCHC 30.6 g/dL (31.0-37.0); MCV 101.3 fL (80.0-100.0); Macrocytosis Moderate; Mean Platelet Volume 7.7; Monocytes # (A) 0.4 k/uL (0-1.0); Monocytes % (A) 5 %; Neutrophils # (A) 5.7 k/uL (1.3-7.7); Neutrophils % (A) 84 %; Platelet Count 193 k/uL (150-450); Poikilocytosis Moderate; RBC 2.55 m/uL (4.30-5.90); RDW 18.4 % (11.5-15.5); WBC 6.8 k/uL (3.8-10.6)
[2021-08-26 09:37] LABS: Calcium 7.8 mg/dL (8.4-10.2); Magnesium 1.9 mg/dL (1.6-2.3); Phosphorus 4.3 mg/dL (2.5-4.5); Potassium 3.5 mmol/L (3.5-5.1)
--- NOTE | 2021-08-26 11:38 | P.PN ---
Subjective Progress Note Date: 08/26/21 Principal diagnosis: GI bleeding Patient blood pressure was low last night, he was mildly lethargic, HR was up a little but now he is better, he is conversive and answering questions. HE states that he is weak and barely has any energy. He has abdominal pain. He had CT of the abdomen that was negative. Last BM was . Objective - Vital Signs Vital signs: Vital Signs Temp 98.6 F 08/26/21 08:00 Pulse 85 08/26/21 08:00 Resp 32 H 08/26/21 08:00 BP 121/51 08/26/21 08:00 Pulse Ox 93 L 08/26/21 08:00 Intake & Output 08/25/21 08/26/21 08/26/21 18:59 06:59 18:59 Intake Total 340 485 710 Output Total 1200 Balance -860 485 710 Intake: Intake, IV Titration 100 650 Amount DAPTOmycin 750 mg In 600 Sodium Chloride 0.9% 50 ml @ 100 mls/hr IVPB Q48H [facility] Rx#:[id number] cefTRIAXone 2 gm In 100 50 Sodium Chloride 0.9% 50 ml @ 100 mls/hr IVPB Q24HR [facility] Rx#:[id number] Oral 240 485 60 Output: Urine 1200 Other: Voiding Method Indwelling Catheter Indwelling Catheter Indwelling Catheter - Exam Gen: awake, alert HEENT: normocephalic, atraumatic, good hearing acuity, moist mucous membranes Resp: good air exchange, breathing comfortably with no accessory muscle use CVS: good distal perfusion x 4, RRR, no murmurs GI: soft, NTTP, ND : no SPT, no CVAT, esquivel catheter not present MSK: +pitting edema, no clubbing Neuro: non-focal, moving all extremities Psych: cooperative, euthymic mood - Labs CBC & Chem 7: 08/26/21 08:46 08/26/21 08:46 Labs: Abnormal Lab Results - Last 24 Hours (Table) 08/26/21 08/26/21 Range/Units 08:46 08:46 RBC 2.55 L (4.30-5.90) m/uL Hgb 7.9 L (13.0-17.5) gm/dL Hct 25.9 L (39.0-53.0) % MCV 101.3 H (80.0-100.0) fL MCHC 30.6 L (31.0-37.0) g/dL RDW 18.4 H (11.5-15.5) % Lymphocytes # 0.5 L (1.0-4.8) k/uL BUN 35 H (9-20) mg/dL Creatinine 2.57 H (0.66-1.25) mg/dL Calcium 7.8 L (8.4-10.2) mg/dL Assessment and Plan Plan: Acute GI bleeding Acute symptomatic anemia secondary to GI bleeding stable, continue to monitor hemoglobin Recieved blood transfusion, fresh frozen plasma transfusion, kcentra and trane xamic Will permanently discontinue Eliquis per GI risk of rebleeding too high per surgery. EGD did not identify source of bleed, no gastritis. Colonoscopy showed internal hemorrhoids, grade 2 with recent inflammation, severe sigmoid diverticulosis with recent bleeding. Recent bleeding was found within the ileocecal valve consistent with small bowel bleed. No active colonic bleeding found. Colonic polyps were found at proximal transverse colon 3 however unresected due to moderate to severe thrombocytopenia and gastrointestinal bleeding. 08/26: bleeding resolved, hgb stable. Epistaxis ENT consulted, nose packed. Followed by ENT, no further bleeding after the packing. Left Foot Cellulitis Right femoral central Line Associated Blood Stream Infection cefazolin 1g q8h started 08/15, then broadened to vancomycin on 08/16, then added ceftriaxone on 08/17 femoral central line removed, tip Cx as below PICC line, needs 2 weeks of vancomycin and Rocephin per ID Follow for identification and sensitivities: -Blood Cx 08/16 - staph epidermidis, Klebsiella (R - ampicillin, tetracycline, bactrim), enterococcus (R - erythromycin, tetracycline), proteus (R - tetracycline) -Blood Cx 08/17 - NGTD -Blood Cx 08/18 - NGTD -Wound Cx 08/16 - proteus, R- tetracycline -Catheter tip 08/16 - proteus, R - tetracycline 08/25: patient pulled out picc line, still has the midline. Will continue abx. ID following. Bilateral skin changes of the legs due to venous stasis ulcers/anasarca Acute systolic CHF Started on lasix gtt by nephrology 08/23, follow urine output. Continue lasix gtt 3/4: D/c lasix as cr increased. 08/26: nephro switched him to oral lasix. Acute kidney injury on CKD mostly prerenal secondary to infection and cardiorenal syndrome -Creatinine was elevated, likely secondary to diuresis. -Nephrology following 08/25: cr worse, will d/c lasix gtt, follow in am. 08/26: cr improved. Continue to monitor. Paroxysmal A. fib status post pacemaker on Eliquis CKD Hypertension History of CAD status post stents 10 years ago Resume home medications Hold ASPIRIN and Eliquis LE duplex of left leg, neg for DVT wound care Constipation and abdominal pain. 08/26: Start miralax. Full code DVT prophylaxis mechanical GI prophylaxis Protonix Anticipated disposition: Rehab in 1-2 days.
[2021-08-26] MEDS: polyethylene glycoL 3350 17 GM POWD.PACK PO SCH (12:28)
[2021-08-26] MEDS: HYDROcodone/APAP 5-325MG 1 EACH TAB PO PRN (21:00)
[2021-08-26] MEDS ORDERED: polyethylene glycoL 3350 17 GM POWD.PACK PO SCH (21:00)
[2021-08-26] MEDS: OXYMETAZOLINE 0.05% NASL SPRAY 1 SPRAY BOTTLE NASAL SCH (21:01)
[2021-08-26] MEDS: ALPRAZolam 1 MG TAB PO SCH (21:01)
[2021-08-27] MEDS: OXYMETAZOLINE 0.05% NASL SPRAY 1 SPRAY BOTTLE NASAL SCH ×4 (05:00→23:45)
[2021-08-27] MEDS: polyethylene glycoL 3350 17 GM POWD.PACK PO SCH (07:56)
[2021-08-27] MEDS: ATORVASTATIN 80 MG TAB PO SCH (07:56)
[2021-08-27] MEDS: AMIODARONE 200 MG TAB PO SCH ×2 (07:56→21:34)
[2021-08-27] MEDS: allopurinoL 100 MG TAB PO SCH (07:56)
[2021-08-27] MEDS: METOPROLOL TARTRATE 25 MG TAB PO SCH ×3 (07:56→21:34)
[2021-08-27] MEDS: FUROSEMIDE 40 MG TAB PO SCH ×2 (07:56→17:10)
[2021-08-27] MEDS: SIMETHICONE 80 MG CHEWABLE PO SCH ×4 (07:57→21:33)
--- NOTE | 2021-08-27 09:19 | P.PN ---
Subjective Patient is seen in follow-up for acute kidney injury on chronic kidney disease. Creatinine 2.57 yesterday. On oral Lasix. Nonoliguric. No changes overnight. Vital signs are stable. HEENT: Nasal packing noted. On O2 mask. LUNGS: Breath sounds decreased. HEART: Rate and Rhythm are regular. ABDOMEN: Soft, obese. EXTREMITITES: 1+ edema. Lower extremities wrapped. Objective - Vital Signs Vital signs: Vital Signs Temp 97.8 F 08/26/21 20:00 Pulse 66 08/27/21 04:00 Resp 28 H 08/27/21 04:00 BP 92/51 08/27/21 04:00 Pulse Ox 92 L 08/27/21 04:00 Intake & Output 08/26/21 08/27/21 08/27/21 18:59 06:59 18:59 Intake Total 2080 485 Output Total 800 Balance 1280 485 Intake: IV 120 .9@10 120 Intake, IV Titration 700 Amount DAPTOmycin 750 mg In 600 Sodium Chloride 0.9% 50 ml @ 100 mls/hr IVPB Q48H [facility] Rx#:[id number] cefTRIAXone 2 gm In 100 Sodium Chloride 0.9% 50 ml @ 100 mls/hr IVPB Q24HR [facility] Rx#:[id number] Oral 1260 485 Output: Urine 800 Uretheral (Pat) 800 Other: Voiding Method Indwelling Catheter Indwelling Catheter # Bowel Movements 1 - Labs CBC & Chem 7: 08/26/21 08:46 08/26/21 08:46 Labs: Abnormal Lab Results - Last 24 Hours (Table) 08/26/21 08/26/21 Range/Units 08:46 08:46 RBC 2.55 L (4.30-5.90) m/uL Hgb 7.9 L (13.0-17.5) gm/dL Hct 25.9 L (39.0-53.0) % MCV 101.3 H (80.0-100.0) fL MCHC 30.6 L (31.0-37.0) g/dL RDW 18.4 H (11.5-15.5) % Lymphocytes # 0.5 L (1.0-4.8) k/uL BUN 35 H (9-20) mg/dL Creatinine 2.57 H (0.66-1.25) mg/dL Calcium 7.8 L (8.4-10.2) mg/dL Assessment and Plan Plan: Assessment: 1. Acute kidney injury mostly prerenal secondary to infection and cardiorenal syndrome. Renal function worse from diuresis. Creatinine 2.57 yesterday. CAT scan showed atrophic right kidney with multiple cysts. Left kidney showed cysts without any hydronephrosis. Trace proteinuria on UA. 2. Acute on chronic systolic CHF with ejection fraction of 40-45% and moderate pulmonary hypertension. 3. Volume overload. Improving with diuresis. 4. Bacteremia likely secondary to central line infection with blood cultures positive for staph, Proteus, enterococcus and Klebsiella. On IV antibiotics. 5. Hypokalemia from diuresis. Replaced. 6. Hypomagnesemia from diuresis. Replaced. Better. 7. Chronic kidney disease stage IIIb. Baseline creatinine near 1.5 secondary to nephrosclerosis. Patient's creatinine was higher when he was last seen outpatient about 3-4 months ago. 8. Acute GI bleed as well as epistaxis. Hemoglobin 7.9 yesterday. Status post EGD and colonoscopy this admission. Has Rhino Rocket. ENT also following. Status post IV DDAVP given 08/21/2021. On Aranesp. Plan: Maintain oral Lasix 40 mg twice daily. Continue to monitor renal function and urine output. Morning labs pending.
[2021-08-27 09:25] LABS: Anisocytosis Slight; Basophils % (A) 0 %; Eosinophils # (A) 0.2 k/uL (0-0.7); Eosinophils % (A) 2 %; HCT 27.4 % (39.0-53.0); HGB 8.6 gm/dL (13.0-17.5); Hypochromasia Marked; Lymphocytes # (A) 0.8 k/uL (1.0-4.8); Lymphocytes % (A) 9 %; MCH 31.9 pg (25.0-35.0); MCHC 31.3 g/dL (31.0-37.0); MCV 102.1 fL (80.0-100.0); Macrocytosis Moderate; Monocytes # (A) 0.5 k/uL (0-1.0); Monocytes % (A) 5 %; Neutrophils # (A) 7.1 k/uL (1.3-7.7); Neutrophils % (A) 81 %; Platelet Count 216 k/uL (150-450); Poikilocytosis Moderate; RBC 2.68 m/uL (4.30-5.90); RDW 18.1 % (11.5-15.5); WBC 8.8 k/uL (3.8-10.6)
[2021-08-27 09:35] LABS: Calcium 7.9 mg/dL (8.4-10.2); Potassium 3.4 mmol/L (3.5-5.1)
[2021-08-27] MEDS ORDERED: POTASSIUM CHLORIDE ER 20 MEQ TAB.ER PO STA (10:46)
--- NOTE | 2021-08-27 12:02 | P.PN ---
Subjective Progress Note Date: 08/27/21 Principal diagnosis: GI bleeding Patient did not sleep well last night, he was confused and agitated, pulled out his midline. Currently complaining of right sided abdominal pain. No chest pain or sob. No fevers. He is still profoundly weak, can't even lift his arms. He is requiring 2 persons maximum assist according to RN. Objective - Vital Signs Vital signs: Vital Signs Temp 96.6 F L 08/27/21 07:45 Pulse 89 08/27/21 07:45 Resp 22 08/27/21 07:45 BP 109/70 08/27/21 07:45 Pulse Ox 92 L 08/27/21 07:45 Intake & Output 08/26/21 08/27/21 08/27/21 18:59 06:59 18:59 Intake Total 2080 485 Output Total 800 400 Balance 1280 485 -400 Intake: IV 120 .9@10 120 Intake, IV Titration 700 Amount DAPTOmycin 750 mg In 600 Sodium Chloride 0.9% 50 ml @ 100 mls/hr IVPB Q48H [facility] Rx#:[id number] cefTRIAXone 2 gm In 100 Sodium Chloride 0.9% 50 ml @ 100 mls/hr IVPB Q24HR [facility] Rx#:[id number] Oral 1260 485 Output: Urine 800 400 Uretheral (Esquivel) 800 Other: Voiding Method Indwelling Catheter Indwelling Catheter Indwelling Catheter # Bowel Movements 1 - Exam Gen: awake, alert HEENT: normocephalic, atraumatic, good hearing acuity, moist mucous membranes Resp: good air exchange, breathing comfortably with no accessory muscle use CVS: good distal perfusion x 4, RRR, no murmurs GI: soft, NTTP, ND : no SPT, no CVAT, esquivel catheter not present MSK: +pitting edema, no clubbing Neuro: non-focal, moving all extremities Psych: cooperative, euthymic mood - Labs CBC & Chem 7: 08/27/21 08:29 08/27/21 08:29 Labs: Abnormal Lab Results - Last 24 Hours (Table) 08/27/21 08/27/21 Range/Units 08:29 08:29 RBC 2.68 L (4.30-5.90) m/uL Hgb 8.6 L (13.0-17.5) gm/dL Hct 27.4 L (39.0-53.0) % MCV 102.1 H (80.0-100.0) fL RDW 18.1 H (11.5-15.5) % Lymphocytes # 0.8 L (1.0-4.8) k/uL Potassium 3.4 L (3.5-5.1) mmol/L BUN 43 H (9-20) mg/dL Creatinine 2.47 H (0.66-1.25) mg/dL Glucose 126 H (74-99) mg/dL Calcium 7.9 L (8.4-10.2) mg/dL Assessment and Plan Plan: Acute GI bleeding Acute symptomatic anemia secondary to GI bleeding stable, continue to monitor hemoglobin Recieved blood transfusion, fresh frozen plasma transfusion, kcentra and tranexamic Will permanently discontinue Eliquis per GI risk of rebleeding too high per surgery. EGD did not identify source of bleed, no gastritis. Colonoscopy showed internal hemorrhoids, grade 2 with recent inflammation, severe sigmoid diverticulosis with recent bleeding. Recent bleeding was found within the ileocecal valve consistent with small bowel bleed. No active colonic bleeding found. Colonic polyps were found at proximal transverse colon 3 however unresected due to moderate to severe thrombocytopenia and gastrointestinal bleeding. 08/26: bleeding resolved, hgb stable. Epistaxis ENT consulted, nose packed. Followed by ENT, no further bleeding after the packing. 08/27: D/w ENT packing removed, no rebleeding. Left Foot Cellulitis Right femoral central Line Associated Blood Stream Infection cefazolin 1g q8h started 08/15, then broadened to vancomycin on 08/16, then added ceftriaxone on 08/17 femoral central line removed, tip Cx as below PICC line, needs 2 weeks of vancomycin and Rocephin per ID Follow for identification and sensitivities: -Blood Cx 08/16 - staph epidermidis, Klebsiella (R - ampicillin, tetracycline, bactrim), enterococcus (R - erythromycin, tetracycline), proteus (R - tetracycline) -Blood Cx 08/17 - NGTD -Blood Cx 08/18 - NGTD -Wound Cx 08/16 - proteus, R- tetracycline -Catheter tip 08/16 - proteus, R - tetracycline 3: patient pulled out picc line, still has the midline. Will continue abx. ID following. 08/27: pulled out midline, stop date for the antbiotics showed be 08/31, possibly could be accomplished with a peripheral IV if he stays inpatient Bilateral skin changes of the legs due to venous stasis ulcers/anasarca Acute systolic CHF Started on lasix gtt by nephrology 08/23, follow urine output. Continue lasix gtt 08/25: D/c lasix as cr increased. 08/26: nephro switched him to oral lasix. Acute kidney injury on CKD mostly prerenal secondary to infection and cardiorenal syndrome -Creatinine was elevated, likely secondary to diuresis. -Nephrology following 08/25: cr worse, will d/c lasix gtt, follow in am. 08/26: cr improved. Continue to monitor. 08/27: cr improved. Paroxysmal A. fib status post pacemaker on Eliquis CKD Hypertension History of CAD status post stents 10 years ago Resume home medications Hold ASPIRIN and Eliquis LE duplex of left leg, neg for DVT wound care Constipation and abdominal pain. 08/26: CT abdomen reviewed--negative, Started miralax. General weakness PT and OT. Full code DVT prophylaxis mechanical GI prophylaxis Protonix Anticipated disposition: Rehab in 1-2 days.
[2021-08-27 12:47] LABS: Albumin 2.4 g/dL (3.5-5.0); Bilirubin, Delta 0.3 mg/dL (0.0-0.2); Bilirubin,Unconjugated 0.4 mg/dL (0.0-1.1); Total Bilirubin 0.7 mg/dL (0.2-1.3); Total Protein 5.2 g/dL (6.3-8.2)
[2021-08-27] MEDS: DAPTOmycin 750 MG in SODIUM CHLORIDE 0.9% 50 ML IVPB SCH (17:32)
[2021-08-27] MEDS: PANTOPRAZOLE 40 MG/10 ML VIAL IV SCH (17:32)
--- NOTE | 2021-08-27 19:58 | PN ---
PROGRESS NOTE DATE OF SERVICE: 08/24/2021 SUBJECTIVE: Vital signs stable. The patient has not had any further bleeding episodes. OBJECTIVE: Examination of the right nasal packing revealed it to be intact and dry. Therefore all of the saline in the anterior and the posterior balloon was extracted using a 10 mL syringe. The Rhino-rocket balloon was left in place, in case it needs to be re- inflated to control bleeding. The very edge of the balloon is crusted with dried blood, and this should hold the balloon in place. I have instructed the nurses to make sure that the catheters to the balloon are taped to the patient's cheek so that the balloon does not accidentally get dislodged. ASSESSMENT: Right anterior posterior epistaxis. PLAN: The plan is that tomorrow on Saturday, after my surgical cases I will stop in to see the patient and remove the balloon completely, assuming the patient has no further bleeding. MMODL / IJN: [id number] / MTDD
--- NOTE | 2021-08-27 20:01 | PN ---
PROGRESS NOTE DATE OF SERVICE: 08/25/2021. SUBJECTIVE: Vital signs stable. The patient has not had any further bleeding since the balloons on the Rhino-rocket were deflated. OBJECTIVE: Inspection of the nasal packing/Rhino-rocket reveals it to be dry. The Rhino- rocket was removed in an atraumatic fashion and there was no bleeding afterwards. The patient was able to sniff back and stated that there was nothing obstructing his breathing through the right nostril now. A mustache dressing was applied at this time. ASSESSMENT: Right anterior posterior epistaxis. PLAN: I have advised the nurses to monitor the patient overnight. It is okay for him to use his CPAP machine if he so desires. I have also advised the nursing staff not to use a nasal cannula to provide oxygen because this may irritate the nose and start the patient bleeding again. If he requires supplemental oxygen, then they should continue using the face tent. I will see the patient again tomorrow on 08/26/2021 and 08/27/2021 to monitor for any evidence of any bleeding. We will start the patient now on Afrin nasal spray 2 puffs in the right nostril three times daily. I demonstrated to the nursing staff the appropriate way in which to do this. As long as the patient is not having any excessive mucus drainage or old blood draining from his nose, then there is no reason for him to wear any type of nasal dressing. Again, it is okay for him to use a CPAP machine. MMODL / IJN: [id number] / JOSE
--- NOTE | 2021-08-27 20:08 | PN ---
PROGRESS NOTE DATE OF SERVICE: 08/26/2021. SUBJECTIVE: Vital signs stable. No further bleeding since the nasal packing was removed yesterday. The nursing staff is spraying the patient's right nostril with 2 puffs of Afrin nasal spray three times daily. It is not necessary for them to spray the left side of his nose because he was not bleeding from that side. OBJECTIVE: Clinical examination intranasally reveals that patient has no evidence of any active bleeding areas. There is some old dried blood present in the superior aspect of the right nasal vault and also posteriorly. ASSESSMENT: Right anterior-posterior epistaxis. PLAN: I will see the patient again tomorrow for a final visit, and if at that time he has not had any further bleeding, then I will sign off of this case. MMODL / IJN: [id number] / MTDD
--- NOTE | 2021-08-27 20:08 | PN ---
PROGRESS NOTE DATE OF SERVICE: 08/27/2021 SUBJECTIVE: Vital signs stable. No further bleeding since the patient's nasal packing was removed over 48 hours ago. OBJECTIVE: Intranasal examination reveals that the right side again does not exhibit any evidence of any acute bleeding. Examination of the posterior pharynx also shows no bleeding down the posterior pharyngeal wall. Remainder of the head and neck exam is essentially unremarkable. ASSESSMENT: Right anterior-posterior epistaxis. PLAN: At this point I have advised the nursing staff to continue with the Afrin nasal spray 2 puffs in the right naris t.i.d. through and including 08/30/2021. As of 08/31/2021 they no longer have to use the Afrin nasal spray. Again it is okay for the patient to use his CPAP if he so desires. Because the bleeding has been controlled, I will now sign off of this case. I want to take this opportunity to thank you for allowing me to assist you in the care of your patient. MMODL / IJN: [id number] / JOSE
[2021-08-27] MEDS: ALPRAZolam 1 MG TAB PO SCH (21:33)
--- NOTE | 2021-08-27 23:49 | P.PN ---
Subjective Progress Note Date: 08/26/21 Principal diagnosis: Bacteremia Patient is a 71-year-old male admitted to the hospital about a week ago for evaluation of bleeding per rectum and weakness the patient did have a right groin central line with the patient was noticed to have some purulent drainage which has been discontinued blood culture positive with multiple pathogen. On today's evaluation is 08/26/2021, patient remains to be afebrile, the patient denies chest pain or cough, the patient denies abdominal pain no diarrhea, no further epistaxis has been reported, the patient has significant swelling to lower extremity and some clear drainage Objective - Vital Signs Vital signs: Vital Signs Temp 98.4 F 08/26/21 12:20 Pulse 118 H 08/26/21 12:20 Resp 26 H 08/26/21 12:20 BP 113/56 08/26/21 12:20 Pulse Ox 97 08/26/21 12:20 Intake & Output 08/25/21 08/26/21 08/26/21 18:59 06:59 18:59 Intake Total 340 485 710 Output Total 1200 Balance -860 485 710 Intake: Intake, IV Titration 100 650 Amount DAPTOmycin 750 mg In 600 Sodium Chloride 0.9% 50 ml @ 100 mls/hr IVPB Q48H [facility] Rx#:[id number] cefTRIAXone 2 gm In 100 50 Sodium Chloride 0.9% 50 ml @ 100 mls/hr IVPB Q24HR [facility] Rx#:[id number] Oral 240 485 60 Output: Urine 1200 Other: Voiding Method Indwelling Catheter Indwelling Catheter Indwelling Catheter - Exam GENERAL DESCRIPTION: An elderly male lying in bed in no distress RESPIRATORY SYSTEM: Unlabored breathing , decreased breath sounds at bases HEART: S1 S2 regular rate and rhythm , ABDOMEN: Soft , no tenderness EXTREMITIES: Bilateral lower extremity with swelling and some blister formation no significant redness - Labs CBC & Chem 7: 08/27/21 08:29 08/27/21 08:29 Labs: Abnormal Lab Results - Last 24 Hours (Table) 08/26/21 08/26/21 Range/Units 08:46 08:46 RBC 2.55 L (4.30-5.90) m/uL Hgb 7.9 L (13.0-17.5) gm/dL Hct 25.9 L (39.0-53.0) % MCV 101.3 H (80.0-100.0) fL MCHC 30.6 L (31.0-37.0) g/dL RDW 18.4 H (11.5-15.5) % Lymphocytes # 0.5 L (1.0-4.8) k/uL BUN 35 H (9-20) mg/dL Creatinine 2.57 H (0.66-1.25) mg/dL Calcium 7.8 L (8.4-10.2) mg/dL Assessment and Plan (1) Bacteremia Current Visit: Yes Status: Acute Code(s): R78.81 - BACTEREMIA SNOMED Code(s): 9600426 Plan: Patient with polymicrobial bacteremia concern for right femoral central line which has been discontinued, , catheter tip cultures finalized his Proteus, blood culture positive for enterococcus Klebsiella and Proteus, groin culture with Proteus patient , patient did have worsening of his kidney function, patient repeat blood culture were negative on 08/17/2021, patient to continue with daptomycin and Rocephin to finish his two-week course of therapy Time with Patient: Less than 30
--- NOTE | 2021-08-27 23:50 | P.PN ---
Subjective Progress Note Date: 08/27/21 Principal diagnosis: Bacteremia Patient is a 71-year-old male admitted to the hospital about a week ago for evaluation of bleeding per rectum and weakness the patient did have a right groin central line with the patient was noticed to have some purulent drainage which has been discontinued blood culture positive with multiple pathogen. The patient has pulled out his PICC line and followed by his midline On today's evaluation is 08/27/2021, patient is afebrile, the patient remains to be lethargic and requiring supplemental oxygen, the patient denies chest pain or cough, the patient denies abdominal pain no diarrhea, no further epistaxis has been reported, the patient has significant swelling to lower extremity however denies pain to the lower extremity Objective - Vital Signs Vital signs: Vital Signs Temp 97.6 F 08/27/21 15:30 Pulse 69 08/27/21 15:30 Resp 20 08/27/21 15:30 BP 103/58 08/27/21 15:30 Pulse Ox 93 L 08/27/21 15:30 Intake & Output 08/26/21 08/27/21 08/27/21 18:59 06:59 18:59 Intake Total 2080 485 40 Output Total 800 400 Balance 1280 485 -360 Intake: IV 120 .9@10 120 Intake, IV Titration 700 Amount DAPTOmycin 750 mg In 600 Sodium Chloride 0.9% 50 ml @ 100 mls/hr IVPB Q48H [facility] Rx#:[id number] cefTRIAXone 2 gm In 100 Sodium Chloride 0.9% 50 ml @ 100 mls/hr IVPB Q24HR [facility] Rx#:[id number] Oral 1260 485 40 Output: Urine 800 400 Uretheral (Pta) 800 Other: Voiding Method Indwelling Catheter Indwelling Catheter Indwelling Catheter # Bowel Movements 1 - Exam GENERAL DESCRIPTION: An elderly male lying in bed in no distress RESPIRATORY SYSTEM: Unlabored breathing , decreased breath sounds at bases HEART: S1 S2 regular rate and rhythm , ABDOMEN: Soft , no tenderness EXTREMITIES: Bilateral lower extremity with swelling and some blister formation no significant redness - Labs CBC & Chem 7: 08/27/21 08:29 08/27/21 08:29 Labs: Abnormal Lab Results - Last 24 Hours (Table) 08/27/21 08/27/21 08/27/21 Range/Units 08:29 08:29 08:29 RBC 2.68 L (4.30-5.90) m/uL Hgb 8.6 L (13.0-17.5) gm/dL Hct 27.4 L (39.0-53.0) % MCV 102.1 H (80.0-100.0) fL RDW 18.1 H (11.5-15.5) % Lymphocytes # 0.8 L (1.0-4.8) k/uL Potassium 3.4 L (3.5-5.1) mmol/L BUN 43 H (9-20) mg/dL Creatinine 2.47 H (0.66-1.25) mg/dL Glucose 126 H (74-99) mg/dL Calcium 7.9 L (8.4-10.2) mg/dL Delta Bilirubin 0.3 H (0.0-0.2) mg/dL Total Protein 5.2 L (6.3-8.2) g/dL Albumin 2.4 L (3.5-5.0) g/dL Assessment and Plan (1) Bacteremia Current Visit: Yes Status: Acute Code(s): R78.81 - BACTEREMIA SNOMED Code(s): 1634966 Plan: Patient with polymicrobial bacteremia concern for right femoral central line which has been discontinued, , catheter tip cultures finalized his Proteus, blood culture positive for enterococcus Klebsiella and Proteus, groin culture with Proteus patient , patient did have worsening of his kidney function, patient repeat blood culture were negative on 08/17/2021, patient to continue with daptomycin and Rocephin to finish his two-week course of therapy with a candidate of antibiotic is 08/31/2021 the patient pulling out his PICC line and midline hopefully can finish his therapy with the peripheral IV Time with Patient: Less than 30
[2021-08-28] MEDS: HYDROcodone/APAP 5-325MG 1 EACH TAB PO PRN (01:05)
[2021-08-28] MEDS: OXYMETAZOLINE 0.05% NASL SPRAY 1 SPRAY BOTTLE NASAL SCH ×3 (05:29→19:07)
[2021-08-28 08:52] LABS: Calcium 7.8 mg/dL (8.4-10.2); Magnesium 2.1 mg/dL (1.6-2.3); Potassium 3.6 mmol/L (3.5-5.1)
[2021-08-28] MEDS: SIMETHICONE 80 MG CHEWABLE PO SCH ×4 (09:23→20:28)
[2021-08-28] MEDS: AMIODARONE 200 MG TAB PO SCH ×2 (09:23→20:28)
[2021-08-28] MEDS: FUROSEMIDE 40 MG TAB PO SCH ×2 (09:23→16:02)
[2021-08-28] MEDS: METOPROLOL TARTRATE 25 MG TAB PO SCH ×3 (09:23→20:28)
[2021-08-28] MEDS: polyethylene glycoL 3350 17 GM POWD.PACK PO SCH (09:23)
[2021-08-28] MEDS: ATORVASTATIN 80 MG TAB PO SCH (09:23)
[2021-08-28] MEDS: allopurinoL 100 MG TAB PO SCH (09:23)
--- NOTE | 2021-08-28 13:01 | P.PN ---
Subjective Patient is seen for follow-up for acute kidney injury on top of chronic kidney disease. She is currently being diuresed for volume overload. Patient also has underlying cardiorenal syndrome. Serum creatinine staying at about 2.4-2.5 mg/dL. Objective - Vital Signs Vital signs: Vital Signs Temp 97.4 F L 08/28/21 12:32 Pulse 92 08/28/21 12:32 Resp 24 08/28/21 12:32 BP 112/78 08/28/21 12:32 Pulse Ox 97 08/28/21 12:32 Intake & Output 08/27/21 08/28/21 08/28/21 18:59 06:59 18:59 Intake Total 1240 240 Output Total 1300 575 300 Balance -60 -575 -60 Weight 129.5 kg Intake: Oral 1240 240 Output: Urine 1300 575 300 Uretheral (Pat) 900 Other: Voiding Method Indwelling Catheter Indwelling Catheter Indwelling Catheter - Exam Patient is comfortable awake not in any acute distress. Examination of the heart S1 and S2 Examination lungs bilateral breath sounds are heard Abdomen is soft nontender Exertion lower extremity shows 1+ edema. - Labs CBC & Chem 7: 08/27/21 08:29 08/28/21 07:38 Labs: Abnormal Lab Results - Last 24 Hours (Table) 08/28/21 Range/Units 07:38 BUN 44 H (9-20) mg/dL Creatinine 2.56 H (0.66-1.25) mg/dL Glucose 101 H (74-99) mg/dL Calcium 7.8 L (8.4-10.2) mg/dL Assessment and Plan Assessment: 1. Acute kidney injury associated with cardiorenal syndrome and underlying infection causing ATN. Currently nonoliguric but fairly stable renal function. Computed tomography scan showed atrophic right kidney with multiple cysts. Left kidney showed cyst without nephrosis. Trace proteinuria on UA Acute on chronic systolic CHF with EF 40-45% with moderate pulmonary hypertension 3. Volume overload improving with diuresis 4. Bacteremia associated with possibly central line infection with blood cultures positive for staph Proteus enterococcus and Klebsiella maintained on IV antibiotics, being followed by ID 5. CK D stage III B baseline creatinine about 1.5 etiology nephrosclerosis 6. Acute GI bleed and epistaxis status post EGD and colonoscopy this admission status post DDAVP 7. Anemia, multifactorial associated with blood loss from GI bleed and epistaxis as well as component of anemia of chronic disease, maintained on Aranesp Plan: Continue with the oral Lasix for now and monitor electrolytes.
--- NOTE | 2021-08-28 14:49 | P.PN ---
Subjective Patient was examined at bedside today not complaining of new symptomatology. He has been complaining of some intractable belly pain that is chronic in nature and present since admission. Continues to be on 4-5 L nasal cannula saturating above 90%. Objective - Vital Signs Vital signs: Vital Signs Temp 97.4 F L 08/28/21 12:32 Pulse 92 08/28/21 12:32 Resp 24 08/28/21 12:32 BP 112/78 08/28/21 12:32 Pulse Ox 97 08/28/21 12:32 Intake & Output 08/27/21 08/28/21 08/28/21 18:59 06:59 18:59 Intake Total 1240 240 Output Total 1300 575 300 Balance -60 -575 -60 Weight 129.5 kg Intake: Oral 1240 240 Output: Urine 1300 575 300 Uretheral (Esquivel) 900 Other: Voiding Method Indwelling Catheter Indwelling Catheter Indwelling Catheter - Exam Gen: awake, alert HEENT: normocephalic, atraumatic, good hearing acuity, moist mucous membranes Resp: good air exchange, breathing comfortably with no accessory muscle use CVS: good distal perfusion x 4, RRR, no murmurs GI: soft, NTTP, ND some mild tenderness noted in the right upper/lower abdomen region : no SPT, no CVAT, esquivel catheter not present MSK: +pitting edema, no clubbing Neuro: non-focal, moving all extremities Psych: cooperative, euthymic mood - Labs CBC & Chem 7: 08/27/21 08:29 08/28/21 07:38 Labs: Abnormal Lab Results - Last 24 Hours (Table) 08/28/21 Range/Units 07:38 BUN 44 H (9-20) mg/dL Creatinine 2.56 H (0.66-1.25) mg/dL Glucose 101 H (74-99) mg/dL Calcium 7.8 L (8.4-10.2) mg/dL Assessment and Plan Assessment: Assessment: #1 acute gastrointestinal bleeding #2 epistaxis status post packing-resolved #3 left foot cellulitis/right femoral central line associated bloodstream infection #4 congestive heart failure with reduced ejection fraction #5 acute kidney injury on CK component of cardiorenal syndrome #6 paroxysmal atrial fibrillation status post pacemaker on a coagulation #7 essential hypertension #8 history of coronary disease status post stents 10 years ago #9 Constipation/abdominal discomfort #10 sigmoid diverticulosis/small bowel intestinal bleeding per colonoscopy Plan: -Admit to medicine for close monitoring -Aspiration/fall precaution/HOB 30 -Note by gastrology on 08/16/2021 suggested against present regulation due to high risk of rebleed with sigmoid diverticulosis and small bowel intestinal bleeding. I will recheck them to see if DVT prophylaxis is safe -Hemoglobin currently stable transfuse if less than 7 -Will require colonoscopy 3-6 months for polypectomy -Continue with antimicrobials as per infectious disease team. The growing enterococcus Klebsiella and Proteus -Repeat blood cultures negative -Continue with daptomycin and Rocephin needs antimicrobials until 08/31/2021. -DVT prophylaxis SCDs for now will need clearance to initiate pharmacologic DVT prophylaxis by GI.
[2021-08-28] MEDS: PANTOPRAZOLE 40 MG/10 ML VIAL IV SCH (16:02)
[2021-08-28] MEDS: ALPRAZolam 1 MG TAB PO SCH (20:28)
[2021-08-29] MEDS: OXYMETAZOLINE 0.05% NASL SPRAY 1 SPRAY BOTTLE NASAL SCH ×5 (03:04→23:23)
[2021-08-29] MEDS: ATORVASTATIN 80 MG TAB PO SCH (08:19)
[2021-08-29] MEDS: METOPROLOL TARTRATE 25 MG TAB PO SCH ×3 (08:19→21:43)
[2021-08-29] MEDS: AMIODARONE 200 MG TAB PO SCH ×2 (08:19→21:43)
[2021-08-29] MEDS: FUROSEMIDE 40 MG TAB PO SCH ×2 (08:19→18:16)
[2021-08-29] MEDS: SIMETHICONE 80 MG CHEWABLE PO SCH ×4 (08:19→21:43)
[2021-08-29] MEDS: PANTOPRAZOLE 40 MG/10 ML VIAL IV SCH (08:19)
[2021-08-29] MEDS: polyethylene glycoL 3350 17 GM POWD.PACK PO SCH (08:20)
[2021-08-29] MEDS: allopurinoL 100 MG TAB PO SCH (08:20)
[2021-08-29] MEDS: DAPTOmycin 750 MG in SODIUM CHLORIDE 0.9% 50 ML IVPB SCH (09:31)
[2021-08-29] MEDS: DARBEPOETIN ALFA 40 MCG/0.4 ML SYRINGE SQ SCH (09:32)
--- NOTE | 2021-08-29 10:23 | P.PN ---
Subjective patient was examined at bedside today not complaining of any new symptomatology. States that his abdominal pain is also improved. Objective - Vital Signs Vital signs: Vital Signs Temp 98.4 F 08/28/21 20:00 Pulse 100 08/29/21 04:00 Resp 24 08/29/21 04:00 BP 91/58 08/29/21 00:00 Pulse Ox 95 08/29/21 04:00 Intake & Output 08/28/21 08/29/21 08/29/21 18:59 06:59 18:59 Intake Total 590 360 Output Total 300 1100 Balance 290 -1100 360 Weight 129.5 kg Intake: IV 250 .9@10 240 Invasive Line 9 10 Intake, IV Titration 100 Amount DAPTOmycin 750 mg In 50 Sodium Chloride 0.9% 50 ml @ 100 mls/hr IVPB Q48H [facility] Rx#:[id number] cefTRIAXone 2 gm In 50 Sodium Chloride 0.9% 50 ml @ 100 mls/hr IVPB Q24HR [facility] Rx#:[id number] Oral 240 360 Output: Urine 300 1100 Other: Voiding Method Indwelling Catheter Indwelling Catheter - Exam Gen: awake, alert HEENT: normocephalic, atraumatic, good hearing acuity, moist mucous membranes Resp: good air exchange, breathing comfortably with no accessory muscle use CVS: good distal perfusion x 4, RRR, no murmurs GI: soft, NTTP, ND some mild tenderness noted in the right upper/lower abdomen region - improved during repeat examination. : no SPT, no CVAT, esquivel catheter not present MSK: +pitting edema, no clubbing Neuro: non-focal, moving all extremities Psych: cooperative, euthymic mood - Labs CBC & Chem 7: 08/27/21 08:29 08/28/21 07:38 Assessment and Plan Assessment: Assessment: #1 acute gastrointestinal bleeding #2 epistaxis status post packing-resolved #3 left foot cellulitis/right femoral central line associated bloodstream infection #4 congestive heart failure with reduced ejection fraction #5 acute kidney injury on CK component of cardiorenal syndrome #6 paroxysmal atrial fibrillation status post pacemaker on a coagulation #7 essential hypertension #8 history of coronary disease status post stents 10 years ago #9 Constipation/abdominal discomfort #10 sigmoid diverticulosis/small bowel intestinal bleeding per colonoscopy Plan: -Admit to medicine for close monitoring -Aspiration/fall precaution/HOB 30 -Note by gastrology on 08/16/2021 suggested against present regulation due to high risk of rebleed with sigmoid diverticulosis and small bowel intestinal bleeding. I will recheck them to see if DVT prophylaxis is safe -Hemoglobin currently stable transfuse if less than 7 -Will require colonoscopy 3-6 months for polypectomy -Continue with antimicrobials as per infectious disease team. The growing enterococcus Klebsiella and Proteus -Repeat blood cultures negative -Continue with daptomycin and Rocephin needs antimicrobials until 08/31/2021. -pending am labs -DVT prophylaxis SCDs for now will need clearance to initiate pharmacologic DVT prophylaxis by GI.
[2021-08-29 12:23] LABS: Calcium 7.5 mg/dL (8.4-10.2); Potassium 3.6 mmol/L (3.5-5.1)
[2021-08-29 12:25] LABS: Anisocytosis Slight; HCT 24.4 % (39.0-53.0); HGB 7.6 gm/dL (13.0-17.5); Hypochromasia Marked; MCH 31.6 pg (25.0-35.0); MCHC 31.2 g/dL (31.0-37.0); MCV 101.3 fL (80.0-100.0); Macrocytosis Moderate; Mean Platelet Volume 8.4; Platelet Count 189 k/uL (150-450); Poikilocytosis Moderate; RBC 2.41 m/uL (4.30-5.90); RDW 17.3 % (11.5-15.5); WBC 7.7 k/uL (3.8-10.6)
[2021-08-29 15:28] LABS: Band Neutrophils % 1 %; Eosinophils # (M) 0.23 k/uL (0-0.7); Lymphocytes # (M) 0.69 k/uL (1.0-4.8); Metamyelocytes # (M) 0.31 k/uL (0); Metamyelocytes % 4 %; Monocytes # (M) 0.23 k/uL (0-1.0); Myelocytes # (M) 0.46 k/uL (0); Myelocytes % 6 %; Neutrophils % (M) 75 %; Nucleated Red Blood Cells 0 /100 WBC (0-0); Total Cells Counted 200
--- NOTE | 2021-08-29 15:58 | PN ---
PROGRESS NOTE Patient is seen for followup for acute kidney injury. Patient's renal function has been stable. He does have underlying chronic kidney disease, currently being diuresed. This morning patient is sleeping. He is arousable. He is not in any acute distress. On examination, blood pressure was 91/58. I do not have any other set of vital signs. Heart rate about 88 per minute. Patient is afebrile. Examination of the heart: S1, S2. Examination of the lungs: Bilateral breath sounds are heard. Abdomen is soft, morbidly obese. Examination of the lower extremities shows chronic skin changes. Bilateral extremities are wrapped. Labs show sodium of 140, potassium 3.6, chloride 102, BUN 47, creatinine 2.57, hemoglobin 7.6 g/dL. ASSESSMENT: 1. Acute kidney injury, acute tubular necrosis, from anemia and cardiorenal syndrome. Renal function is stable. Trace proteinuria noted on UA. CT scan showed atrophic right kidney with multiple cysts. Left kidney shows cysts as well. Continue with current dose of Lasix. 2. Acute on chronic systolic congestive heart failure, ejection fraction 40% to 45%, with moderate pulmonary hypertension. 3. Volume overload, currently being diuresed. 4. Chronic kidney disease, stage 3B, with baseline creatinine 1.5. Etiology is nephrosclerosis. 5. Bacteremia associated with possibly central line infection with blood cultures positive for Staphylococcus aureus, Proteus, Enterococcus, Klebsiella, maintained on IV antibiotics, being followed by ID. 6. Acute gastrointestinal bleed and epistaxis, status post EGD and colonoscopy this admission. 7. Anemia secondary to gastrointestinal bleed as well as anemia of chronic disease. PLAN: Continue with the current dose of Lasix and continue to monitor renal function. Avoid hypotension. Patient is currently not on any significant antihypertensive medications. Lopressor is 25 mg t.i.d. and heart rate is slightly on the higher side. Therefore I will continue with the current dose. We can add midodrine if blood pressure remains low. MMODL / IJN: [id number] /
[2021-08-29 21:03] LABS: ABG Base Excess 4.4 mmol/L; ABG HCO3 28 mmol/L (21-25); ABG Oxygen Saturation 92.8 % (94-97); ABG PCO2 40 mmHg (35-45); ABG PH 7.46 (7.35-7.45); ABG PO2 63 mmHg (83-108); ABG TCO2 29 mmol/L (19-24); Allen Test Performed? Yes
[2021-08-29] MEDS: ALPRAZolam 1 MG TAB PO SCH (21:33)
--- NOTE | 2021-08-29 21:33 | P.PN ---
Subjective Progress Note Date: 08/28/21 Principal diagnosis: Bacteremia Patient is a 71-year-old male admitted to the hospital about a week ago for evaluation of bleeding per rectum and weakness the patient did have a right groin central line with the patient was noticed to have some purulent drainage which has been discontinued blood culture positive with multiple pathogen. The patient has pulled out his PICC line and followed by his midline On today's evaluation is 08/28/2021, patient remains to be afebrile, the patient remains to be lethargic and requiring supplemental oxygen, the patient however denies chest pain or cough, the patient has been complaining of some abdominal pain and to quantify it any further no nausea no vomiting and no diarrhea has been reported Objective - Vital Signs Vital signs: Vital Signs Temp 97.4 F L 08/28/21 12:32 Pulse 92 08/28/21 12:32 Resp 24 08/28/21 12:32 BP 112/78 08/28/21 12:32 Pulse Ox 97 08/28/21 12:32 Intake & Output 08/27/21 08/28/21 08/28/21 18:59 06:59 18:59 Intake Total 1240 240 Output Total 1300 575 300 Balance -60 -575 -60 Weight 129.5 kg Intake: Oral 1240 240 Output: Urine 1300 575 300 Uretheral (Pat) 900 Other: Voiding Method Indwelling Catheter Indwelling Catheter Indwelling Catheter - Exam GENERAL DESCRIPTION: An elderly male lying in bed in no distress RESPIRATORY SYSTEM: Unlabored breathing , decreased breath sounds at bases HEART: S1 S2 regular rate and rhythm , ABDOMEN: Soft , no tenderness EXTREMITIES: Bilateral lower extremity with swelling and some blister formation no significant redness - Labs CBC & Chem 7: 08/29/21 11:27 08/29/21 11:27 Labs: Abnormal Lab Results - Last 24 Hours (Table) 08/28/21 Range/Units 07:38 BUN 44 H (9-20) mg/dL Creatinine 2.56 H (0.66-1.25) mg/dL Glucose 101 H (74-99) mg/dL Calcium 7.8 L (8.4-10.2) mg/dL Assessment and Plan (1) Bacteremia Current Visit: Yes Status: Acute Code(s): R78.81 - BACTEREMIA SNOMED Code(s): 2817181 Plan: Patient with polymicrobial bacteremia concern for right femoral central line which has been discontinued, , catheter tip cultures finalized his Proteus, blood culture positive for enterococcus Klebsiella and Proteus, groin culture with Proteus patient , patient did have worsening of his kidney function, patient repeat blood culture were negative on 08/17/2021, patient is currently covered with daptomycin and Rocephin to finish his two-week course of therapy with and date of 08/31/2021 Time with Patient: Less than 30
--- NOTE | 2021-08-29 21:34 | P.PN ---
Subjective Progress Note Date: 08/29/21 Principal diagnosis: Bacteremia Patient is a 71-year-old male admitted to the hospital about a week ago for evaluation of bleeding per rectum and weakness the patient did have a right groin central line with the patient was noticed to have some purulent drainage which has been discontinued blood culture positive with multiple pathogen. The patient has pulled out his PICC line and followed by his midline On today's evaluation is 08/29/2021, patient continues to be afebrile, the patient remains to be lethargic however is arousable and denies chest pain or cough, the patient continues to be complaining of some abdominal pain and to quantify it any further no nausea no vomiting and no diarrhea has been reported Objective - Vital Signs Vital signs: Vital Signs Temp 98.4 F 08/28/21 20:00 Pulse 100 08/29/21 04:00 Resp 24 08/29/21 04:00 BP 91/58 08/29/21 00:00 Pulse Ox 95 08/29/21 04:00 Intake & Output 08/28/21 08/29/21 08/29/21 18:59 06:59 18:59 Intake Total 590 360 Output Total 300 1100 Balance 290 -1100 360 Weight 129.5 kg Intake: IV 250 .9@10 240 Invasive Line 9 10 Intake, IV Titration 100 Amount DAPTOmycin 750 mg In 50 Sodium Chloride 0.9% 50 ml @ 100 mls/hr IVPB Q48H [facility] Rx#:[id number] cefTRIAXone 2 gm In 50 Sodium Chloride 0.9% 50 ml @ 100 mls/hr IVPB Q24HR [facility] Rx#:[id number] Oral 240 360 Output: Urine 300 1100 Other: Voiding Method Indwelling Catheter Indwelling Catheter # Bowel Movements 1 - Exam GENERAL DESCRIPTION: An elderly male lying in bed in no distress RESPIRATORY SYSTEM: Unlabored breathing , decreased breath sounds at bases HEART: S1 S2 regular rate and rhythm , ABDOMEN: Soft , no tenderness EXTREMITIES: Bilateral lower extremity with swelling and some blister formation no significant redness - Labs CBC & Chem 7: 08/29/21 11:27 08/29/21 11:27 Labs: Abnormal Lab Results - Last 24 Hours (Table) 08/29/21 08/29/21 Range/Units 11:27 11:27 RBC 2.41 L (4.30-5.90) m/uL Hgb 7.6 L (13.0-17.5) gm/dL Hct 24.4 L (39.0-53.0) % MCV 101.3 H (80.0-100.0) fL RDW 17.3 H (11.5-15.5) % BUN 47 H (9-20) mg/dL Creatinine 2.57 H (0.66-1.25) mg/dL Glucose 112 H (74-99) mg/dL Calcium 7.5 L (8.4-10.2) mg/dL Assessment and Plan (1) Bacteremia Current Visit: Yes Status: Acute Code(s): R78.81 - BACTEREMIA SNOMED Code(s): 0940663 Plan: Patient with polymicrobial bacteremia concern for right femoral central line which has been discontinued, , catheter tip cultures finalized his Proteus, blood culture positive for enterococcus Klebsiella and Proteus, groin culture with Proteus, patient repeat blood culture were negative on 08/17/2021, patient to continue with daptomycin and Rocephin to finish his two-week course of therapy and monitor his clinical course closely Time with Patient: Less than 30
[2021-08-29] MEDS ORDERED: METOPROLOL TARTRATE 5 MG/5 ML VIAL IVP STA (22:46)
[2021-08-30] MEDS: OXYMETAZOLINE 0.05% NASL SPRAY 1 SPRAY BOTTLE NASAL SCH ×3 (05:32→19:03)
[2021-08-30 06:57] LABS: Anisocytosis Slight; HCT 24.8 % (39.0-53.0); HGB 7.5 gm/dL (13.0-17.5); Hypochromasia Marked; MCH 30.7 pg (25.0-35.0); MCHC 30.3 g/dL (31.0-37.0); MCV 101.3 fL (80.0-100.0); Macrocytosis Moderate; Mean Platelet Volume 8.6; Platelet Count 202 k/uL (150-450); Poikilocytosis Moderate; RBC 2.45 m/uL (4.30-5.90); RDW 17.9 % (11.5-15.5); WBC 8.9 k/uL (3.8-10.6)
[2021-08-30 07:12] LABS: Calcium 7.9 mg/dL (8.4-10.2); Potassium 3.5 mmol/L (3.5-5.1)
[2021-08-30] MEDS: METOPROLOL TARTRATE 25 MG TAB PO SCH ×3 (09:02→22:58)
[2021-08-30] MEDS: FUROSEMIDE 40 MG TAB PO SCH ×2 (09:02→17:37)
[2021-08-30] MEDS: allopurinoL 100 MG TAB PO SCH (09:02)
[2021-08-30] MEDS: ATORVASTATIN 80 MG TAB PO SCH (09:02)
[2021-08-30] MEDS: AMIODARONE 200 MG TAB PO SCH ×2 (09:03→22:58)
[2021-08-30] MEDS: polyethylene glycoL 3350 17 GM POWD.PACK PO SCH (09:03)
[2021-08-30] MEDS: SIMETHICONE 80 MG CHEWABLE PO SCH ×4 (09:03→22:58)
[2021-08-30 10:36] LABS: Band Neutrophils % 2 %; Eosinophils # (M) 0.18 k/uL (0-0.7); Lymphocytes # (M) 0.53 k/uL (1.0-4.8); Metamyelocytes # (M) 0.18 k/uL (0); Metamyelocytes % 2 %; Myelocytes # (M) 0.27 k/uL (0); Myelocytes % 3 %; Neutrophils % (M) 78 %; Nucleated Red Blood Cells 0 /100 WBC (0-0); Total Cells Counted 200
[2021-08-30 10:37] LABS: Polychromasia Present
[2021-08-30] MEDS: PANTOPRAZOLE 40 MG/10 ML VIAL IV SCH (11:24)
--- NOTE | 2021-08-30 12:02 | P.PN ---
Subjective Patient is seen for follow-up for acute kidney injury on top of chronic kidney disease. She is currently being diuresed for volume overload. Patient has underlying cardiorenal syndrome. Serum creatinine staying at about 2.4-2.5 mg/dL. Serum creatinine increased to 2.8 today. 24 hour urine output 1400 mL Blood pressure remains on the lower side Objective - Vital Signs Vital signs: Vital Signs Temp 97.4 F L 08/30/21 07:50 Pulse 105 H 08/30/21 11:28 Resp 26 H 08/30/21 11:28 BP 98/66 08/30/21 11:28 Pulse Ox 94 L 08/30/21 11:28 Intake & Output 08/29/21 08/30/21 08/30/21 18:59 06:59 18:59 Intake Total 820 Output Total 900 Balance 820 -900 Intake: Intake, IV Titration 100 Amount DAPTOmycin 750 mg In 50 Sodium Chloride 0.9% 50 ml @ 100 mls/hr IVPB Q48H [facility] Rx#:[id number] cefTRIAXone 2 gm In 50 Sodium Chloride 0.9% 50 ml @ 100 mls/hr IVPB Q24HR [facility] Rx#:[id number] Oral 720 Output: Urine 900 Other: Voiding Method Indwelling Catheter Indwelling Catheter Indwelling Catheter # Bowel Movements 1 1 - Exam Patient is comfortable awake not in any acute distress. He is lethargic. Examination of the heart S1 and S2 Examination lungs bilateral breath sounds are heard Abdomen is soft nontender Exertion lower extremity shows chronic edema. And chronic skin changes. Both legs are wrapped - Labs CBC & Chem 7: 08/30/21 06:43 08/30/21 06:43 Labs: Abnormal Lab Results - Last 24 Hours (Table) 08/29/21 08/29/21 08/29/21 Range/Units 11:27 11:27 20:59 RBC 2.41 L (4.30-5.90) m/uL Hgb 7.6 L (13.0-17.5) gm/dL Hct 24.4 L (39.0-53.0) % MCV 101.3 H (80.0-100.0) fL MCHC (31.0-37.0) g/dL RDW 17.3 H (11.5-15.5) % Lymphocytes # (Manual) 0.69 L (1.0-4.8) k/uL Metamyelocytes # (Man) 0.31 H (0) k/uL Myelocytes # (Manual) 0.46 H (0) k/uL ABG pH 7.46 H (7.35-7.45) ABG pO2 63 L (83-108) mmHg ABG HCO3 28 H (21-25) mmol/L ABG Total CO2 29 H (19-24) mmol/L ABG O2 Saturation 92.8 L (94-97) % Chloride (98-107) mmol/L BUN 47 H (9-20) mg/dL Creatinine 2.57 H (0.66-1.25) mg/dL Glucose 112 H (74-99) mg/dL Calcium 7.5 L (8.4-10.2) mg/dL 08/30/21 08/30/21 Range/Units 06:43 06:43 RBC 2.45 L (4.30-5.90) m/uL Hgb 7.5 L (13.0-17.5) gm/dL Hct 24.8 L (39.0-53.0) % MCV 101.3 H (80.0-100.0) fL MCHC 30.3 L (31.0-37.0) g/dL RDW 17.9 H (11.5-15.5) % Lymphocytes # (Manual) 0.53 L (1.0-4.8) k/uL Metamyelocytes # (Man) 0.18 H (0) k/uL Myelocytes # (Manual) 0.27 H (0) k/uL ABG pH (7.35-7.45) ABG pO2 (83-108) mmHg ABG HCO3 (21-25) mmol/L ABG Total CO2 (19-24) mmol/L ABG O2 Saturation (94-97) % Chloride 108 H (98-107) mmol/L BUN 52 H (9-20) mg/dL Creatinine 2.86 H (0.66-1.25) mg/dL Glucose 114 H (74-99) mg/dL Calcium 7.9 L (8.4-10.2) mg/dL Assessment and Plan Assessment: 1. Acute kidney injury associated with cardiorenal syndrome and underlying infection causing ATN. Currently nonoliguric but fairly stable renal function. Computed tomography scan showed atrophic right kidney with multiple cysts. Left kidney showed cyst without nephrosis. Trace proteinuria on UA Acute on chronic systolic CHF with EF 40-45% with moderate pulmonary hypertension 3. Volume overload improving with diuresis 4. Bacteremia associated with possibly central line infection with blood cultures positive for staph Proteus enterococcus and Klebsiella maintained on IV antibiotics, being followed by ID 5. CK D stage III B baseline creatinine about 1.5 etiology nephrosclerosis 6. Acute GI bleed and epistaxis status post EGD and colonoscopy this admission status post DDAVP 7. Anemia, multifactorial associated with blood loss from GI bleed and e pistaxis as well as component of anemia of chronic disease, maintained on Aranesp Plan: Check chest x-ray Add midodrine Repeat labs in a.m.
[2021-08-30] MEDS: MIDODRINE 5 MG TAB PO SCH ×2 (12:33→17:37)
--- NOTE | 2021-08-30 13:31 | XR ---
EXAMINATION TYPE: XR chest 1V DATE OF EXAM: 08/30/2021 HISTORY: Shortness of breath. COMPARISON: 08/25/2021 TECHNIQUE: Single view of the chest is submitted. FINDINGS: There is evidence of pneumoperitoneum. Correlate for perforated viscus. Demonstrated are scattered senescent parenchymal change. There is no evidence for focal infiltrate. Elevation right hemidiaphragm. Right basilar atelectasis. The heart is stable. Hilar and mediastinal structures are within normal limits. Degenerative changes are seen of the dorsal spine. IMPRESSION: 1. There is evidence of pneumoperitoneum. Correlate for perforated viscus. Consider confirmation wit h CT and/or plain film radiographs. A Red level critical message alert has been initiated for Leigh Merritt via the [employer] Results System on 08/30/2021 1:29 PM. This message alert has been sent to Leigh Merritt via the pref erences provided by the clinician for the receipt of Radiology Critical Findings. Message ID [id number].
[2021-08-30] MEDS ORDERED: SODIUM CHLORIDE 0.9% 1,000 ML IV ONE (14:54)
--- NOTE | 2021-08-30 16:04 | P.GSCN ---
History of Present Illness Consult date: 08/30/21 History of present illness: CHIEF COMPLAINT: Pneumoperitoneum HISTORY OF PRESENT ILLNESS: This is a 71-year-old male with a recent cardiac stent placement due to acute cardiac event reports more than 2 weeks history of generalized increased fatigue and intermittent bleeding from the rectum. Patient presents with symptomatic anemia and had large bloody bowel movement in the emergency room. He had been placed on anticoagulation reversal agents as well as fluids. Patient at home is on iron and anticoagulant. Hemoglobin on admission was 11.8 down from baseline 15.6. Since admission, hemoglobin dropped 2 g down to 9.4. He reports abdominal distention and low appetite with epigastric discomfort. Patient did have EGD and colonoscopy during this admission with Dr. Mccullough. EGD revealed diaphragmatic hiatal hernia, Martinez's esophagus and erosive esophagitis and colonoscopy with evidence of bleeding diverticulosis including small bowel bleed. Patient had no further evidence of bleeding and hemoglobin had remained stable. And at that point we had signed off. We have been reconsult at 2 to the pneumoperitoneum that was noted on chest x-ray. Patient apparently had chest x-ray for shortness of breath. This is a single view chest x-ray showed evidence of pneumoperitoneum correlate for perforated viscus. Patient's abdomen is distended. He has diff use tenderness. He is tachycardic and hypotensive. He is receiving IV fluid bolus. A computed tomography scan of the abdomen and pelvis has been ordered. He is afebrile. Patient has had hypotension over the last few days. Patient does have a known cardiac history with CHF and EF of 40-45%. PAST MEDICAL HISTORY: See list. PAST SURGICAL HISTORY: See list. MEDICATIONS: See list. ALLERGIES: See list. SOCIAL HISTORY: No illicit drug use. REVIEW OF SYSTEMS: CONSTITUTIONAL: Denies fever or chills. HEENT: Denies blurred vision, vision changes, or eye pain. Denies hemoptysis ENDOCRINE: Denies heat or cold intolerance. CARDIOVASCULAR: Denies chest pain or pressure. RESPIRATORY: No shortness of breath. GASTROINTESTINAL: please refer to HPI NEURO: Denies history of seizures. PSYCH: No depression or suicidal ideation HEMATOLOGIC: Denies bleeding disorders. LYMPHATIC: The patient denies any lumps and bumps around the neck. GENITOURINARY: Denies any blood in urine or increased urinary frequency. MUSCULOSKELETAL: Denies myalgias. Denies joint swelling. Denies decreased range of motion beyond patients baseline. SKIN: Denies pruitis. Denies rash. PHYSICAL EXAM: VITAL SIGNS: Reviewed GENERAL: Well-developed in no acute distress. HEENT: No sclera icterus. Extraocular movements grossly intact. Moist buccal mucosa. Head is atraumatic, normocephalic. Hears conversational speech. No nasal drainage. NECK: Supple without lymphadenopathy. CHEST: Non-labored respirations and equal bilateral excursions. CARDIOVASCULAR: Palpable 2+ radial pulses. ABDOMEN: Soft. distended with diffuse tenderness. Abdomen is very tender with palpation MUSCULOSKELETAL: No clubbing or cyanosis. NEUROLOGIC: No focal or lateralizing signs. Cranial nerves II through XII grossly intact. PSYCH: Appropriate affect. Alert and oriented to person, place and time. SKIN: Well perfused. Good skin turgor. LABORATORY DATA: WBC is 8.9 hemoglobin 7.5 platelets 202 sodium 140 potassium 3.5 creatinine 2.86 IMAGING: Chest x-ray evidence of pneumoperitoneum. Correlate for perforated viscus. Consider confirmation with CT and/or plain films ASSESSMENT: 1. Pneumoperitoneum noted on chest x-ray 2. Acute GI bleed 3. Gastroesophageal reflux disease 4. Diaphragmatic hiatal hernia 5. Martinez's esophagus 6. Atrial fibrillation had been on the Eliquis 7. Chronic systolic heart failure 8. acute on Chronic kidney disease 9. Epistaxis 10. Colonoscopy with evidence of bleeding diverticulosis including small bowel bleed PLAN: -Computed tomography scan abdomen and pelvis has been ordered for further evaluation of possible pneumoperitoneum -1 L fluid bolus ordered for hypotension -Continue supportive care -Further recommendations forthcoming per surgeon Physician Poly Area Supervisor note has been reviewed by physician. Signing provider agrees with the documented findings, assessment, and plan of care. 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 SEE DR. PAYNE'S H & P Last Myocardial Infarction Date:: 2010 History of Any Multi-Drug Resistant Organisms: None Reported Past Surgical History: Cholecystectomy, Heart Catheterization With Stent, Joint Replacement, Orthopedic Surgery, Tonsillectomy Additional Past Surgical History / Comment(s): BILAT TKA AND DANIELLE, BILAT KNEE SCOPES, COLONOSCOPIES, CARDIOVERSION 04/03/21, pacemaker placed 07/15/21 Past Anesthesia/Blood Transfusion Reactions: No Reported Reaction Date of Last Stent Placement:: 2010 Past Psychological History: No Psychological Hx Reported Smoking Status: Never smoker Past Alcohol Use History: Occasional Past Drug Use History: None Reported - Past Family History Mother Family Medical History: Cancer Additional Family Medical History / Comment(s): Mother of breast cancer at the age of 79yrs. Father Family Medical History: Coronary Artery Disease (CAD) Additional Family Medical History / Comment(s): Father had heart problems. He had coronary valve replacement. He at the age of 83 yrs. Medications and Allergies Home Medications Medication Instructions Recorded Confirmed Type ALPRAZolam [Xanax] 1 mg PO HS 04/15/15 08/11/21 History Apixaban [Eliquis] 5 mg PO BID 04/15/15 08/11/21 History Aspirin [Adult Low Dose Aspirin EC] 81 mg PO DAILY 04/09/16 08/11/21 History Latanoprost Ophth [Xalatan 0.005%] 1 drops BOTH EYES HS ml 04/13/16 08/11/21 Rx allopurinoL [Zyloprim] 100 mg PO DAILY 05/07/19 08/11/21 History Acetaminophen-Codeine 300-30mg 1 tab PO Q6H PRN 01/20/21 08/11/21 History [Tylenol w/codeine #3] Atorvastatin [Lipitor] 80 mg PO DAILY 02/20/21 08/11/21 History Pantoprazole Sodium [Protonix] 40 mg PO DAILY 02/20/21 08/11/21 History Spironolactone [Aldactone] 25 mg PO DAILY 30 Days #30 tab 02/24/21 08/11/21 Rx Furosemide [Lasix] 60 mg PO DAILY 03/30/21 08/11/21 History Metoprolol Succinate (ER) [Toprol 25 mg PO DAILY #90 tab 04/03/21 08/11/21 Rx XL] Amiodarone HCl [Pacerone] 100 mg PO DAILY 08/11/21 08/11/21 History Ferrous Sulfate [Feosol] 325 mg PO DAILY 08/11/21 08/11/21 History Menthol-Zinc Oxide Oint 1 applic TOPICAL BID PRN 08/11/21 08/11/21 History [Calmoseptine Oint] Metoclopramide [Reglan] 5 mg PO W/BRKFST 08/11/21 08/11/21 History Metoprolol Succinate [Toprol XL] 50 mg PO HS 08/11/21 08/11/21 History SILVER sulfADIAZINE CREAM 1 applic TOPICAL DAILY PRN 08/11/21 08/11/21 History [Silvadene Cream] Allergies Allergy/AdvReac Type Severity Reaction Status Date / Time No Known Allergies Allergy Verified 08/11/21 22:01 Surgical - Exam Vital Signs Temp Pulse Resp BP Pulse Ox 97.4 F L 51 L 18 118/84 100 08/11/21 19:19 08/11/21 19:19 08/11/21 19:19 08/11/21 19:19 08/11/21 19:19 Results - Labs 08/30/21 06:43 08/30/21 06:43 Abnormal Lab Results - Last 24 Hours (Table) 08/29/21 08/29/21 08/30/21 Range/Units 11:27 20:59 06:43 RBC 2.45 L (4.30-5.90) m/uL Hgb 7.5 L (13.0-17.5) gm/dL Hct 24.8 L (39.0-53.0) % MCV 101.3 H (80.0-100.0) fL MCHC 30.3 L (31.0-37.0) g/dL RDW 17.9 H (11.5-15.5) % Lymphocytes # (Manual) 0.69 L 0.53 L (1.0-4.8) k/uL Metamyelocytes # (Man) 0.31 H 0.18 H (0) k/uL Myelocytes # (Manual) 0.46 H 0.27 H (0) k/uL ABG pH 7.46 H (7.35-7.45) ABG pO2 63 L (83-108) mmHg ABG HCO3 28 H (21-25) mmol/L ABG Total CO2 29 H (19-24) mmol/L ABG O2 Saturation 92.8 L (94-97) % Chloride (98-107) mmol/L BUN (9-20) mg/dL Creatinine (0.66-1.25) mg/dL Glucose (74-99) mg/dL Calcium (8.4-10.2) mg/dL 08/30/21 Range/Units 06:43 RBC (4.30-5.90) m/uL Hgb (13.0-17.5) gm/dL Hct (39.0-53.0) % MCV (80.0-100.0) fL MCHC (31.0-37.0) g/dL RDW (11.5-15.5) % Lymphocytes # (Manual) (1.0-4.8) k/uL Metamyelocytes # (Man) (0) k/uL Myelocytes # (Manual) (0) k/uL ABG pH (7.35-7.45) ABG pO2 (83-108) mmHg ABG HCO3 (21-25) mmol/L ABG Total CO2 (19-24) mmol/L ABG O2 Saturation (94-97) % Chloride 108 H (98-107) mmol/L BUN 52 H (9-20) mg/dL Creatinine 2.86 H (0.66-1.25) mg/dL Glucose 114 H (74-99) mg/dL Calcium 7.9 L (8.4-10.2) mg/dL Diabetes panel 08/30/21 Range/Units 06:43 Sodium 140 (137-145) mmol/L Potassium 3.5 (3.5-5.1) mmol/L Chloride 108 H (98-107) mmol/L Carbon Dioxide 29 (22-30) mmol/L BUN 52 H (9-20) mg/dL Creatinine 2.86 H (0.66-1.25) mg/dL Glucose 114 H (74-99) mg/dL Calcium 7.9 L (8.4-10.2) mg/dL Calcium panel 08/30/21 Range/Units 06:43 Calcium 7.9 L (8.4-10.2) mg/dL Pituitary panel 08/30/21 Range/Units 06:43 Sodium 140 (137-145) mmol/L Potassium 3.5 (3.5-5.1) mmol/L Chloride 108 H (98-107) mmol/L Carbon Dioxide 29 (22-30) mmol/L BUN 52 H (9-20) mg/dL Creatinine 2.86 H (0.66-1.25) mg/dL Glucose 114 H (74-99) mg/dL Calcium 7.9 L (8.4-10.2) mg/dL Adrenal panel 08/30/21 Range/Units 06:43 Sodium 140 (137-145) mmol/L Potassium 3.5 (3.5-5.1) mmol/L Chloride 108 H (98-107) mmol/L Carbon Dioxide 29 (22-30) mmol/L BUN 52 H (9-20) mg/dL Creatinine 2.86 H (0.66-1.25) mg/dL Glucose 114 H (74-99) mg/dL Calcium 7.9 L (8.4-10.2) mg/dL
--- NOTE | 2021-08-30 16:41 | P.PN ---
Subjective Patient was examined at bedside today continues to be slightly altered not very responsive to my questions. Vital signs are stable during my examination. We did be evaluating him after the chest x-ray showing concerns of pneumoperitoneum. The diaphragm. Stat computed tomography scan of the abdomen and pelvis was ordered I also place a consultation to surgery stat. Blood pressure was labile patient received a bolus of normal saline. Responded well to a systolic greater than 100 on repeat. I spoke with critical care team those accepted the patient for transfer. CT of the abdomen and pelvis pending which was completed just recently. Objective - Vital Signs Vital signs: Vital Signs Temp 97.4 F L 08/30/21 07:50 Pulse 115 H 08/30/21 14:58 Resp 28 H 08/30/21 14:50 BP 91/59 08/30/21 15:20 Pulse Ox 93 L 08/30/21 14:50 Intake & Output 08/29/21 08/30/21 08/30/21 18:59 06:59 18:59 Intake Total 820 Output Total 900 Balance 820 -900 Intake: Intake, IV Titration 100 Amount DAPTOmycin 750 mg In 50 Sodium Chloride 0.9% 50 ml @ 100 mls/hr IVPB Q48H ASHLEY Rx#:[id number] cefTRIAXone 2 gm In 50 Sodium Chloride 0.9% 50 ml @ 100 mls/hr IVPB Q24HR ASHLEY Rx#:[id number] Oral 720 Output: Urine 900 Other: Voiding Method Indwelling Catheter Indwelling Catheter Indwelling Catheter # Bowel Movements 1 1 - Exam Gen: Slightly uncomfortable but very responsive however awake and alert. Grimacing Resp: Bilateral air entry, slightly decreased breath sounds secondary body habitus. On 2 L nasal cannula. CVS: Normal S1/S2 no murmurs heard. GI: Abdomen is slightly tender on palpation bilaterally. Positive bowel sounds. : no SPT, no CVAT, esquivel catheter not present MSK: +pitting edema, no clubbing Neuro: non-focal, moving all extremities Psych: None cooperative, euthymic mood - Labs CBC & Chem 7: 08/30/21 06:43 08/30/21 06:43 Labs: Abnormal Lab Results - Last 24 Hours (Table) 08/29/21 08/30/21 08/30/21 Range/Units 20:59 06:43 06:43 RBC 2.45 L (4.30-5.90) m/uL Hgb 7.5 L (13.0-17.5) gm/dL Hct 24.8 L (39.0-53.0) % MCV 101.3 H (80.0-100.0) fL MCHC 30.3 L (31.0-37.0) g/dL RDW 17.9 H (11.5-15.5) % Lymphocytes # (Manual) 0.53 L (1.0-4.8) k/uL Metamyelocytes # (Man) 0.18 H (0) k/uL Myelocytes # (Manual) 0.27 H (0) k/uL ABG pH 7.46 H (7.35-7.45) ABG pO2 63 L (83-108) mmHg ABG HCO3 28 H (21-25) mmol/L ABG Total CO2 29 H (19-24) mmol/L ABG O2 Saturation 92.8 L (94-97) % Chloride 108 H (98-107) mmol/L BUN 52 H (9-20) mg/dL Creatinine 2.86 H (0.66-1.25) mg/dL Glucose 114 H (74-99) mg/dL Calcium 7.9 L (8.4-10.2) mg/dL Assessment and Plan Assessment: Assessment: #1 pneumoperitoneum -new onset #1 acute gastrointestinal bleeding #2 epistaxis status post packing-resolved #3 left foot cellulitis/right femoral central line associated bloodstream infection #4 congestive heart failure with reduced ejection fraction #5 acute kidney injury on CK component of cardiorenal syndrome #6 paroxysmal atrial fibrillation status post pacemaker on a coagulation #7 essential hypertension #8 history of coronary disease status post stents 10 years ago #9 Constipation/abdominal discomfort #10 sigmoid diverticulosis/small bowel intestinal bleeding per colonoscopy Plan: -Admit to medicine for close monitoring -Aspiration/fall precaution/HOB 30 -Chest x-ray showing free air under the right diaphragm more than the left. We'll obtain CT abdomen and pelvis to evaluate for perforation. -Consultation to critical care and surgical team placed. Patient has been transferred to ICU level of care. -Note by gastrology on 08/16/2021 suggested against present regulation due to high risk of rebleed with sigmoid diverticulosis and small bowel intestinal b leeding. I will recheck them to see if DVT prophylaxis is safe -Hemoglobin currently stable transfuse if less than 7 -Will require colonoscopy 3-6 months for polypectomy -Repeat blood cultures negative -Continue with daptomycin and Rocephin needs antimicrobials until 08/31/2021. -DVT prophylaxis SCDs for now will need clearance to initiate pharmacologic DVT prophylaxis by GI.
--- NOTE | 2021-08-30 17:25 | CT ---
EXAMINATION TYPE: CT abdomen pelvis wo con DATE OF EXAM: 08/30/2021 COMPARISON: Same-day and prior HISTORY: Suspect bowel perforation CT DLP: 2351 mGycm Automated exposure control for dose reduction was used. TECHNIQUE: Helical acquisition of images was performed from the lung bases through the pelvis. FINDINGS: LUNG BASES: Trace right pleural effusion with mild bibasilar opacities. LIVER/GB: No significant abnormality is appreciated. PANCREAS: No significant abnormality is seen. SPLEEN: No significant abnormality is seen. ADRENALS: No significant abnormality is seen. KIDNEYS: No acute abnormality is seen. Multiple left and few right renal cysts measuring up to 5.6 cm on the left and 2.17 cm the right. Marked right renal atrophy seen. No hydronephrosis or nephrolithi asis. RETROPERITONEAL ADENOPATHY: None visualized REPRODUCTIVE ORGANS: No significant abnormality is seen URINARY BLADDER: No significant abnormality is seen. PELVIC ADENOPATHY: None visualized. OSSEOUS STRUCTURES: No acute abnormality is seen. Bilateral hip arthroplasty seen. BOWEL: Moderate to large dependent pneumoperitoneum in the anterior abdomen. No bowel obstruction. S mall pelvic free fluid. Residual oral contrast is seen within the colon. No significant contrast extr avasation seen. Colonic diverticulosis without acute diverticulitis. OTHER: Moderate atherosclerotic disease. IMPRESSION: MODERATE TO LARGE PNEUMOPERITONEUM WITHOUT OBVIOUS ETIOLOGY SEEN. FINDINGS ARE CONCERNING FOR PERFORA CAIT VISCUS. NO BOWEL OBSTRUCTION. SMALL PELVIC FREE FLUID. TRACE RIGHT PLEURAL EFFUSION AND MILD BIBASILAR OPACITIES. CHRONIC AND INCIDENTAL FINDINGS ABOVE.
[2021-08-30] MEDS: SODIUM CHLORIDE 0.9% 1,000 ML IV SCH ×2 (17:39→21:30)
--- NOTE | 2021-08-30 17:51 | P.PN ---
Subjective Progress Note Date: 08/30/21 Patient seen and evaluated at bedside. Patient transferred from the floor to the intensive care unit. I personally spoke to rn care manager Dr. Jurado who placed an arterial line including central line as patient had no IV access. CT of the abdomen and pelvis was obtained for further elucidation of etiology of pneumoperitoneum. I personally reviewed his computed tomography scan demonstrated no clear etiology for pneumoperitoneum. Patient bedside with heart rate of 133. Blood pressure improved after 2 L bolus to 100s systolic over 80s diastolic. Patient is somnolent. Abdomen is distended. Patient is extremely high risk for morbidity due to underlying protracted hospital course for gastrointestinal bleed, ischemic cardiomyopathy, depressed ejection fraction as well as congestive heart failure. Consent in chart obtained. Patient's son Silvano Em contacted at [phone] with intention to surgery for exploratory laparotomy, possible colostomy bag possible repair of ruptured duodenal or stomach ulcer, and other indicated procedures. Prolonged intubation also described including recovery intensive care unit. Patient overall deemed extremely high risk for surgery. All questions addressed. Objective - Vital Signs Vital signs: Vital Signs Temp 97.4 F L 08/30/21 07:50 Pulse 115 H 08/30/21 14:58 Resp 28 H 08/30/21 14:50 BP 91/59 08/30/21 15:20 Pulse Ox 93 L 08/30/21 14:50 Intake & Output 08/29/21 08/30/21 08/30/21 18:59 06:59 18:59 Intake Total 820 Output Total 900 Balance 820 -900 Intake: Intake, IV Titration 100 Amount DAPTOmycin 750 mg In 50 Sodium Chloride 0.9% 50 ml @ 100 mls/hr IVPB Q48H ASHLEY Rx#:[id number] cefTRIAXone 2 gm In 50 Sodium Chloride 0.9% 50 ml @ 100 mls/hr IVPB Q24HR ASHLEY Rx#:[id number] Oral 720 Output: Urine 900 Other: Voiding Method Indwelling Catheter Indwelling Catheter Indwelling Catheter # Bowel Movements 1 1 - Labs CBC & Chem 7: 08/30/21 06:43 08/30/21 06:43 Labs: Abnormal Lab Results - Last 24 Hours (Table) 08/29/21 08/30/21 08/30/21 Range/Units 20:59 06:43 06:43 RBC 2.45 L (4.30-5.90) m/uL Hgb 7.5 L (13.0-17.5) gm/dL Hct 24.8 L (39.0-53.0) % MCV 101.3 H (80.0-100.0) fL MCHC 30.3 L (31.0-37.0) g/dL RDW 17.9 H (11.5-15.5) % Lymphocytes # (Manual) 0.53 L (1.0-4.8) k/uL Metamyelocytes # (Man) 0.18 H (0) k/uL Myelocytes # (Manual) 0.27 H (0) k/uL ABG pH 7.46 H (7.35-7.45) ABG pO2 63 L (83-108) mmHg ABG HCO3 28 H (21-25) mmol/L ABG Total CO2 29 H (19-24) mmol/L ABG O2 Saturation 92.8 L (94-97) % Chloride 108 H (98-107) mmol/L BUN 52 H (9-20) mg/dL Creatinine 2.86 H (0.66-1.25) mg/dL Glucose 114 H (74-99) mg/dL Calcium 7.9 L (8.4-10.2) mg/dL Assessment and Plan (1) Morbid (severe) obesity due to excess calories Current Visit: Yes Status: Acute Code(s): E66.01 - MORBID (SEVERE) OBESITY DUE TO EXCESS CALORIES SNOMED Code(s): 659347077 (2) BMI 35.0-35.9,adult Current Visit: Yes Status: Acute Code(s): Z68.35 - BODY MASS INDEX [BMI] 35.0-35.9, ADULT SNOMED Code(s): 247598274 (3) Pacemaker complications Current Visit: Yes Status: Acute Code(s): T82.9XXA - UNSP COMP OF CARDIAC AND VASCULAR PROSTH DEV/GRFT, INIT SNOMED Code(s): 774666111 (4) Atrial fibrillation Current Visit: Yes Status: Acute Code(s): I48.91 - UNSPECIFIED ATRIAL FIBRILLATION SNOMED Code(s): 13801694 (5) GI bleed Current Visit: Yes Status: Acute Code(s): K92.2 - GASTROINTESTINAL HEMORRHAGE, UNSPECIFIED SNOMED Code(s): 72335325 (6) Hematochezia Current Visit: Yes Status: Acute Code(s): K92.1 - MELENA SNOMED Code(s): 496108233 (7) Hypotension Current Visit: Yes Status: Acute Code(s): I95.9 - HYPOTENSION, UNSPECIFIED SNOMED Code(s): 34476107 (8) Melena Current Visit: Yes Status: Acute Code(s): K92.1 - MELENA SNOMED Code(s): 7601160 (9) Rapid atrial fibrillation Current Visit: No Status: Acute Code(s): I48.91 - UNSPECIFIED ATRIAL FIBRILLATION SNOMED Code(s): 959644946 (10) Hemorrhage of sigmoid colon due to diverticulosis Current Visit: Yes Status: Acute Code(s): K57.31 - DVRTCLOS OF LG INT W/O PERFORATION OR ABSCESS W BLEEDING SNOMED Code(s): 1235308728181038 (11) Small intestinal hemorrhage Current Visit: Yes Status: Acute Code(s): K92.2 - GASTROINTESTINAL HE MORRHAGE, UNSPECIFIED SNOMED Code(s): 69957515
--- NOTE | 2021-08-30 18:07 | XR ---
EXAMINATION TYPE: XR chest 1V portable DATE OF EXAM: 08/30/2021 COMPARISON: Same-day HISTORY: Line placement TECHNIQUE: Single frontal view of the chest is obtained. FINDINGS: There is demonstration of a left IJ catheter with tip overlying the caudal SVC. There is r edemonstration of pneumoperitoneum. There is mild bibasilar platelike opacity. No pleural effusion or pneumothorax seen. Stable cardiomediastinal silhouette. The osseous structures are intact. IMPRESSION: As above.
--- NOTE | 2021-08-30 18:57 | PCN ---
PROCEDURE NOTE PULMONARY/CRITICAL CARE PROCEDURE: PROCEDURE PERFORMED: Right radial art line. PREOP DIAGNOSIS: Frequent blood draws and blood gas monitoring. POSTOP DIAGNOSIS: Frequent blood draws and blood gas monitoring. BOARDING MACHINE OPERATOR: Dr. Jurado. There was informed consent and universal timeout. ARTERIAL LINE PLACEMENT: Indications: Hemodynamic monitoring. A time-out was completed verifying correct patient, procedure, site, positioning, and implant(s) or special equipment if applicable. Leroy's test was performed to ensure adequate perfusion. The patient's right wrist was prepped and draped in sterile fashion. 1% Lidocaine was used to anesthetize the area. An 18G Arrow arterial line was introduced into the radial artery. The catheter was threaded over the guide wire and the needle was removed with appropriate pulsatile blood return. Blood loss was minimal. The catheter was then sutured in place to the skin and a sterile dressing applied. Perfusion to the extremity distal to the point of catheter insertion was checked and found to be adequate. The patient tolerated the procedure well and there were no complications. There was good blood return and waveform. The catheter was sutured in place. Sterile dressing was applied by the nurse. There was no immediate complication. The patient tolerated procedure well. MMODL / IJN: [id number] /
--- NOTE | 2021-08-30 19:16 | PCN ---
PROCEDURE NOTE PROCEDURE PERFORMED: Left internal jugular triple-lumen catheter. PREOP DIAGNOSIS: Administration of fluids and pressors. POSTOP DIAGNOSIS: Administration of fluids and pressors. POLARITY TESTER: Dr. Jurado TRIPLE LUMEN CATHETER PLACEMENT: Indication: Hemodynamic monitoring/Intravenous access. A time-out was completed verifying correct patient, procedure, site, positioning, and implant(s) or special equipment if applicable. The patient was placed in a dependent position appropriate for triple lumen catheter placement based on the vein to be cannulated. The patient's left neck was prepped and draped in sterile fashion. 1% Lidocaine was used to anesthetize the surrounding skin area. A triple lumen 9F Cordis catheter was introduced into the internal jugular vein using Seldinger technique. The catheter was threaded smoothly over the guide wire and appropriate blood return was obtained. Each lumen of the catheter was evacuated of air and flushed with sterile saline. The catheter was then sutured in place to the skin and a sterile dressing applied. Perfusion to the extremity distal to the point of catheter insertion was checked and found to be adequate. There was informed consent and universal timeout. We used the left internal jugular vein. We used a posterior approach. There was no immediate complication. There was good blood return from all 3 ports. The catheter was sutured in place. A sterile dressing was applied by the nurse. There was no immediate complication. A chest x-ray was ordered to rule out pneumothorax and check placement of the catheter. MMODL / IJN: [id number] /
[2021-08-30] MEDS ORDERED: PHENYLEPHRINE-0.9% NACL SYG 1,000 MCG/10 ML SYRINGE ONE (19:30)
[2021-08-30] MEDS ORDERED: ETOMIDATE 2 MG/ML 10 ML VIAL ONE (19:30)
[2021-08-30] MEDS ORDERED: ROCURONIUM 10 MG/ML (5 ML VIAL) IV ONE (19:30)
[2021-08-30] MEDS ORDERED: ePHEDrine 50 MG/ML 1 ML VIAL ONE (19:30)
[2021-08-30] MEDS ORDERED: propofoL 100 ML IV ONE (20:09)
[2021-08-30 20:27] LABS: ABG Base Excess -4.4 mmol/L; ABG HCO3 23 mmol/L (21-25); ABG Oxygen Saturation 80.6 % (94-97); ABG PCO2 53 mmHg (35-45); ABG PH 7.25 (7.35-7.45); ABG TCO2 25 mmol/L (19-24); Allen Test Performed? Yes
[2021-08-30 20:30] LABS: ABG PO2 56 mmHg (83-108)
[2021-08-30] MEDS: SODIUM CHLORIDE 0.9% 1,000 ML IV ONE ×2 (20:30→22:57)
--- NOTE | 2021-08-30 20:31 | P.OP ---
Date of Procedure: 08/30/21 Description of Procedure: PREOPERATIVE DIAGNOSES: 1. Pneumoperitoneum due to perforated viscus 2. Ischemic cardiomyopathy with congestive heart failure 3. Atrial fibrillation with rapid ventricular response 4. Pacemaker in situ 5. Morbid obesity due to excess calories, BMI 38.7 6. Iron deficiency anemia 7. Moderate to severe obstructive sleep apnea 8. Hypertensive heart disease 9. Stage III chronic kidney disease due to hypertensive heart disease 10. Chronic anticoagulation 11. Peripheral vascular occlusive disease POSTOP DIAGNOSES: 1. Pneumoperitoneum due to perforated viscus 2. Ischemic cardiomyopathy with congestive heart failure 3. Atrial fibrillation with rapid ventricular response 4. Pacemaker in situ 5. Morbid obesity due to excess calories, BMI 38.7 6. Iron deficiency anemia 7. Moderate to severe obstructive sleep apnea 8. Hypertensive heart disease 9. Stage III chronic kidney disease due to hypertensive heart disease 10. Chronic anticoagulation 11. Peripheral vascular occlusive disease PROCEDURES PERFORMED: 1. Exploratory laparotomy ABORTED upon induction of general anesthesia SURGEON: Dr. Theresa Mccullough. ANESTHESIA:General endotracheal intubation ESTIMATED BLOOD LOSS: 0 mL. SPECIMENS: None COMPLICATIONS: None. CONDITION: Unstable INDICATIONS: The patient is a 71-year-old gentleman who presents with abdominal pain and pneumoperitoneum identified per diagnostic studies. Patient was transferred to the intensive care unit for stabilization due to hypotension and mental status changes. Verbal informed consent for exploratory laparotomy possible bowel resection and ostomy creation was obtained by janett Schaefer. Benefits and risks including prolonged intubation, morbidity was reviewed. DESCRIPTION: The patient is transferred from the intensive care unit to the operating room after arterial line and central line was placed per sustain engineer. Patient was given IV fluid bolus and responded with improve blood pressure for hypotension. Upon general induction, patient's blood pressure plummeted. Multiple vasopressors were given with continued instability and heart rate over 140s. Per discussion with anesthesia, patient is unstable for general anesthesia. Decision to abort exploratory laparotomy made due to patient's unstable condition. Patient transferred back to the intensive care unit on IV pressures, intubated. Hydrographic Engineer notified of events following intubation and unstable for surgery. Janett Schaefer also notified. Patient in critical condition for which CODE status is being reassessed.
--- NOTE | 2021-08-30 20:39 | P.PN ---
Progress Note - Text Progress Note Date: 08/30/21 I updated the patient's son Silvano regarding events [phone]. Patient unable to tolerate general anesthesia therefore unable to perform exploratory laparotomy. Patient taken back to the intensive care unit intubated including on pressors. IV fluid boluses being given for hypotension. [employer] notified of events. I reviewed with the patient's SON regarding CODE STATUS. Per Silvano, the patient's wish is FULL CODE. He was made aware that patient is intubated on pressors. Immediate ABG blood gases including CBC, CMP, troponin levels including EKG being obtained. Patient unlikely to survive without surgery and likewise unable to tolerate general anesthesia for surgery. Family made aware that patient's condition is critical.
[2021-08-30 21:05] LABS: Anisocytosis Slight; HCT 26.6 % (39.0-53.0); HGB 7.7 gm/dL (13.0-17.5); Hypochromasia Marked; MCH 29.7 pg (25.0-35.0); MCHC 28.8 g/dL (31.0-37.0); MCV 103.1 fL (80.0-100.0); Macrocytosis Moderate; Mean Platelet Volume 8.8; Platelet Count 289 k/uL (150-450); Poikilocytosis Moderate; RBC 2.58 m/uL (4.30-5.90); RDW 17.2 % (11.5-15.5); WBC 14.5 k/uL (3.8-10.6)
[2021-08-30 21:13] LABS: Albumin 2.1 g/dL (3.5-5.0); Calcium 7.4 mg/dL (8.4-10.2); Potassium 3.7 mmol/L (3.5-5.1); Total Bilirubin 0.4 mg/dL (0.2-1.3); Total Protein 4.7 g/dL (6.3-8.2)
[2021-08-30] MEDS: NOREPINEPHRINE 8 MG in SODIUM CHLORIDE 0.9% 250 ML IV ONE (21:24)
--- NOTE | 2021-08-30 21:24 | XR ---
EXAMINATION TYPE: XR chest 1V portable DATE OF EXAM: 08/30/2021 COMPARISON: Same-day HISTORY: Vent placement. TECHNIQUE: Single frontal view of the chest is obtained. FINDINGS: There is interval intubation with tip terminating approximately 2.7 cm above the sebastián. T here is partially imaged nasogastric tube with visualized distal portion overlying the stomach and ti p not included in [id number]-agju. There is mild perihilar and bibasilar streaky opacities with small l eft pleural effusion. No pneumothorax. Improvement of previously identified pneumoperitoneum. Stable cardiomediastinal silhouette. IMPRESSION: As above.
[2021-08-30] MEDS: ALPRAZolam 1 MG TAB PO SCH (22:58)
[2021-08-30 22:59] LABS: Band Neutrophils % 16 %; Eosinophils # (M) 0.15 k/uL (0-0.7); Lymphocytes # (M) 1.89 k/uL (1.0-4.8); Metamyelocytes # (M) 0.58 k/uL (0); Metamyelocytes % 4 %; Monocytes # (M) 0.73 k/uL (0-1.0); Myelocytes # (M) 0.15 k/uL (0); Myelocytes % 1 %; Neutrophils % (M) 60 %; Nucleated Red Blood Cells 0 /100 WBC (0-0); Total Cells Counted 100
[2021-08-31] MEDS ORDERED: SODIUM CHLORIDE 0.9% 1,000 ML IV ONE (01:00)
[2021-08-31] MEDS: NOREPINEPHRINE 8 MG in SODIUM CHLORIDE 0.9% 250 ML IV ONE ×3 (02:02→14:18)
[2021-08-31] MEDS: SODIUM CHLORIDE 0.9% 1,000 ML IV SCH ×4 (03:33→23:34)
[2021-08-31] MEDS: CHLORHEXIDINE GLUCONATE 15 ML CUP MUCOUS MEM SCH ×3 (06:03→21:16)
[2021-08-31 06:06] LABS: Anisocytosis Slight; HCT 26.7 % (39.0-53.0); HGB 7.8 gm/dL (13.0-17.5); Hypochromasia Marked; MCH 29.2 pg (25.0-35.0); MCHC 29.1 g/dL (31.0-37.0); MCV 100.4 fL (80.0-100.0); Macrocytosis Slight; Mean Platelet Volume 8.6; Platelet Count 296 k/uL (150-450); Poikilocytosis Moderate; RBC 2.66 m/uL (4.30-5.90); RDW 17.6 % (11.5-15.5)
[2021-08-31 06:09] LABS: ABG Base Excess -2.7 mmol/L; ABG HCO3 22 mmol/L (21-25); ABG Oxygen Saturation 99.9 % (94-97); ABG PCO2 36 mmHg (35-45); ABG PO2 205 mmHg (83-108); ABG TCO2 23 mmol/L (19-24); Allen Test Performed? Yes
[2021-08-31 06:21] LABS: Calcium 7.4 mg/dL (8.4-10.2); Potassium 3.9 mmol/L (3.5-5.1); Total Bilirubin 0.5 mg/dL (0.2-1.3); Total Protein 4.9 g/dL (6.3-8.2)
[2021-08-31 06:44] LABS: Band Neutrophils % 10 %; Lymphocytes # (M) 0.85 k/uL (1.0-4.8); Metamyelocytes # (M) 0.12 k/uL (0); Metamyelocytes % 1 %; Monocytes # (M) 1.09 k/uL (0-1.0); Neutrophils % (M) 73 %; Nucleated Red Blood Cells 5 /100 WBC (0-0); Total Cells Counted 100; WBC 12.1 k/uL (3.8-10.6)
[2021-08-31] MEDS: OXYMETAZOLINE 0.05% NASL SPRAY 1 SPRAY BOTTLE NASAL SCH ×5 (06:51→21:55)
[2021-08-31] MEDS: MIDODRINE 5 MG TAB PO SCH ×3 (06:52→16:46)
--- NOTE | 2021-08-31 07:08 | XR ---
EXAMINATION TYPE: XR chest 1V portable DATE OF EXAM: 08/31/2021 COMPARISON: 08/30/2021 HISTORY: Shortness of breath TECHNIQUE: Single frontal view of the chest is obtained. FINDINGS: ET and NG tube stable. Cardiac device noted is bilateral infiltrate and pleural effusion g reater on the left. There is prominence of the right paratracheal stripe. Adenopathy not excluded. No pneumothorax. Hypertrophic changes of the spine. IMPRESSION: 1. Bilateral infiltrate and pleural effusion stable. Prominence of the mediastinum noted which could be correlated with CT scan as clinically warranted.
--- NOTE | 2021-08-31 08:27 | P.PN ---
Progress Note - Text Progress Note Date: 08/31/21 Notified by environmental quality analyst the patient more stable and may attempt for exploratory laparotomy today.
[2021-08-31] MEDS: DAPTOmycin 750 MG in SODIUM CHLORIDE 0.9% 50 ML IVPB SCH (08:28)
[2021-08-31] MEDS: ATORVASTATIN 80 MG TAB PO SCH (09:15)
[2021-08-31] MEDS: AMIODARONE 200 MG TAB PO SCH (09:15)
[2021-08-31] MEDS: allopurinoL 100 MG TAB PO SCH (09:15)
[2021-08-31] MEDS: METOPROLOL TARTRATE 25 MG TAB PO SCH ×3 (09:16→21:54)
[2021-08-31] MEDS: polyethylene glycoL 3350 17 GM POWD.PACK PO SCH (09:16)
[2021-08-31] MEDS: FUROSEMIDE 40 MG TAB PO SCH ×2 (09:16→16:40)
[2021-08-31] MEDS: SIMETHICONE 80 MG CHEWABLE PO SCH ×4 (09:17→21:54)
[2021-08-31] MEDS: PANTOPRAZOLE 40 MG/10 ML VIAL IV SCH (09:18)
--- NOTE | 2021-08-31 09:19 | P.PN ---
Subjective Progress Note Date: 08/31/21 Principal diagnosis: GI bleed This is a pleasant 71-year-old male patient who has a history of atrial fibrillation anticoagulated with Eliquis, recent biventricular pacemaker inse rtion on 07/13/2021 and subsequent evacuation of hematoma on 07/24/2021. He also has a history of obstructive sleep apnea maintained on BiPAP, chronic kidney disease stage III, nephrolithiasis, hyperlipidemia, hypertension, coronary artery disease with previous stent placement, osteoarthritis with previous joint replacements, obesity. Nonsmoker. He presented to the emergency room last evening with a three-week history of increasing bloody bowel movements. Initially just a small amount of blood noted in and it progressed and yesterday he had multiple large bloody bowel movements. He also had some lightheadedness. No abdominal discomfort. No shortness of breath. No chest pain. He is seen today in consultation in the emergency department. He is awake and alert in no acute distress. He is maintaining O2 saturations in the 90s on 2 L/m per nasal cannula. He has 0.9 normal saline at KVO. White count 8.0. Hemoglobin 10.3. Platelets 56,000. INR 1.1. Fibrinogen 358. Pro time 1 1.4. Sodium 140. Potassium 4.1. Bicarb 27. BUN 65. Creatinine 2.22. GFR 28. Troponin 0.035. Thakur virus by PCR not detected. He has received 1 unit of fresh frozen plasma. 2 units of packed red blood cells on hold. This x-ray reveals mild atelectasis in the right lung base without change compared to previous on 07/17/2021. No congestive heart failure. EKG reveals atrial fibrillation with controlled ventricular response. The patient is seen today 08/31/2021 in follow-up in the intensive care unit. As the patient was not in the ICU during his stay we had not been following him since the initial consultation. Yesterday however the patient developed significant abdominal discomfort and a computed tomography scan of the abdomen revealed a moderate to large pneumoperitoneum without obvious etiology found. Findings are concerning for perforated viscus. No bowel obstruction. Small pelvic free fluid. Trace right pleural effusion and mild bibasilar opacities. He was transferred to the intensive care unit for altered mental status and hypotension. Based on these findings the patient was to be taken to the operating room by Dr. Somers however prior to the surgery he developed significant hypotension upon induction of anesthesia. The procedure was aborted and not performed. He remained intubated on mechanical ventilator. Current settings are assist-control mode at a rate of 22, tidal volume 550, FiO2 70% and a PEEP of 10. Morning blood gases revealed a PaO2 of 205, pCO2 36, PH7.40. Chest x-ray just so some atelectatic changes in the bases. Good placement of the Endo and oral gastric tubes. He is currently sedated on propofol at 30 mcg/kg/m. He has normal saline running at 150 MLS per hour. He is requiring norepinephrine currently at 0.18 mcg/kg/m which is approximately 23 mcg/m. He remains in atrial fibrillation with occasional PVCs. He has a left internal jugular triple-lumen catheter in place. Right radial arterial line in place. He has Edis wraps in the bilateral lower extremities. His toes are dusky and somewhat cyanotic more so on the right. He has a right upper extremity midline in place. He has received 2 units of packed red blood cells this admission. 2 units of fresh frozen plasma. A PICC line catheter tip from 08/16/2021 was positive for Proteus mirabilis. A groin wound was positive for Proteus mirabilis. Previous blood cultures were positive for Proteus mirabilis, enterococcus faecalis, Klebsiella oxytoca. Follow-up blood cultures are revealing no growth. White count 12.1. Hemoglobin 7.8. Platelets 296. Sodium 143. Potassium 3.9. Chloride 112. Bicarb 22. BUN 55. Creatinine 3.01. Glucose 126. Troponin 0.138. Cortisol level and TSH levels pending. He remains on antibiotics in the form of ceftriaxone. Objective - Vital Signs Vital signs: Vital Signs Temp 98.1 F 08/31/21 05:00 Pulse 96 08/31/21 07:00 Resp 22 08/31/21 07:00 BP 139/67 08/31/21 07:00 Pulse Ox 100 08/31/21 07:00 Intake & Output 08/30/21 08/31/21 08/31/21 18:59 06:59 18:59 Intake Total 300 3266.000 Output Total 65 121 Balance 235 3145.000 Weight 128.9 kg Intake: IV 300 2650 Sodium Chloride 0.9% 1, 300 1650 000 ml @ 150 mls/hr IV . Q6H40M [facility] Rx#:[id number] Sodium Chloride 0.9% 1, 1000 000 ml @ 999 mls/hr IV . Q1H1M [facility] Rx#:[id number] Intake, IV Titration 616.000 Amount Norepinephrine 8 mg In 516.000 Sodium Chloride 0.9% 250 ml @ 0.05 MCG/KG/MIN 12. 529 mls/hr IV .[id number] [facility] Rx#:[id number] propofoL 1,000 mg In 100.000 Empty Bag 1 bag @ 5 MCG/ KG/MIN 3.885 mls/hr IV . Q24H [facility] Rx#:[id number] Output: Urine 65 121 Other: Voiding Method Indwelling Catheter Indwelling Catheter # Bowel Movements 1 ABP, PAP, CO, CI - Last Documented Arterial Blood Pressure 143/72 - Exam GENERAL EXAM: Intubated, sedated obese 71-year-old male patient, comfortable in no apparent distress. HEAD: Normocephalic. EYES: Sluggish reaction of pupils, equal size. NOSE: Clear with pink turbinates. THROAT: Oral endotracheal and gastric tube secured in place. No erythema or exudates. NECK: No masses, no JVD. CHEST: No chest wall deformity. LUNGS: Equal air entry with faint crackles in the posterior bases. CVS: S1 and S2 normal with no audible murmur, regular rhythm. ABDOMEN: Distended, soft. Hypoactive bowel sounds. SPINE: No scoliosis or deformity SKIN: No rashes CENTRAL NERVOUS SYSTEM: No focal deficits, tone is normal in all 4 extremities. EXTREMITIES: Edis wraps to the bilateral lower extremities. Cyanosis noted on the toes more so on the right foot. Peripheral pulses are intact. - Labs CBC & Chem 7: 08/31/21 05:32 08/31/21 05:32 Labs: Abnormal Lab Results - Last 24 Hours (Table) 08/30/21 08/30/21 08/30/21 Range/Units 06:43 20:23 20:30 WBC 14.5 H (3.8-10.6) k/uL RBC 2.58 L (4.30-5.90) m/uL Hgb 7.7 L (13.0-17.5) gm/dL Hct 26.6 L (39.0-53.0) % MCV 103.1 H (80.0-100.0) fL MCHC 28.8 L (31.0-37.0) g/dL RDW 17.2 H (11.5-15.5) % Neutrophils # (Manual) 11.00 H (1.3-7.7) k/uL Lymphocytes # (Manual) 0.53 L (1.0-4.8) k/uL Monocytes # (Manual) (0-1.0) k/uL Metamyelocytes # (Man) 0.18 H 0.58 H (0) k/uL Myelocytes # (Manual) 0.27 H 0.15 H (0) k/uL Nucleated RBCs (0-0) /100 WBC ABG pH 7.25 L (7.35-7.45) ABG pCO2 53 H (35-45) mmHg ABG pO2 56 L* (83-108) mmHg ABG Total CO2 25 H (19-24) mmol/L ABG O2 Saturation 80.6 L (94-97) % Chloride (98-107) mmol/L Carbon Dioxide (22-30) mmol/L BUN (9-20) mg/dL Creatinine (0.66-1.25) mg/dL Glucose (74-99) mg/dL Calcium (8.4-10.2) mg/dL AST (17-59) U/L Troponin I (0.000-0.034) ng/mL Total Protein (6.3-8.2) g/dL Albumin (3.5-5.0) g/dL 08/30/21 08/30/21 08/31/21 Range/Units 20:30 20:30 05:32 WBC 12.1 H (3.8-10.6) k/uL RBC 2.66 L (4.30-5.90) m/uL Hgb 7.8 L (13.0-17.5) gm/dL Hct 26.7 L (39.0-53.0) % MCV 100.4 H (80.0-100.0) fL MCHC 29.1 L (31.0-37.0) g/dL RDW 17.6 H (11.5-15.5) % Neutrophils # (Manual) 10.00 H (1.3-7.7) k/uL Lymphocytes # (Manual) 0.85 L (1.0-4.8) k/uL Monocytes # (Manual) 1.09 H (0-1.0) k/uL Metamyelocytes # (Man) 0.12 H (0) k/uL Myelocytes # (Manual) (0) k/uL Nucleated RBCs 5 H (0-0) /100 WBC ABG pH (7.35-7.45) ABG pCO2 (35-45) mmHg ABG pO2 (83-108) mmHg ABG Total CO2 (19-24) mmol/L ABG O2 Saturation (94-97) % Chloride 110 H (98-107) mmol/L Carbon Dioxide 21 L (22-30) mmol/L BUN 53 H (9-20) mg/dL Creatinine 2.92 H (0.66-1.25) mg/dL Glucose 135 H (74-99) mg/dL Calcium 7.4 L (8.4-10.2) mg/dL AST 68 H (17-59) U/L Troponin I 0.138 H* (0.000-0.034) ng/mL Total Protein 4.7 L (6.3-8.2) g/dL Albumin 2.1 L (3.5-5.0) g/dL 08/31/21 08/31/21 Range/Units 05:32 06:05 WBC (3.8-10.6) k/uL RBC (4.30-5.90) m/uL Hgb (13.0-17.5) gm/dL Hct (39.0-53.0) % MCV (80.0-100.0) fL MCHC (31.0-37.0) g/dL RDW (11.5-15.5) % Neutrophils # (Manual) (1.3-7.7) k/uL Lymphocytes # (Manual) (1.0-4.8) k/uL Monocytes # (Manual) (0-1.0) k/uL Metamyelocytes # (Man) (0) k/uL Myelocytes # (Manual) (0) k/uL Nucleated RBCs (0-0) /100 WBC ABG pH (7.35-7.45) ABG pCO2 (35-45) mmHg ABG pO2 205 H (83-108) mmHg ABG Total CO2 (19-24) mmol/L ABG O2 Saturation 99.9 H (94-97) % Chloride 112 H (98-107) mmol/L Carbon Dioxide (22-30) mmol/L BUN 55 H (9-20) mg/dL Creatinine 3.01 H (0.66-1.25) mg/dL Glucose 126 H (74-99) mg/dL Calcium 7.4 L (8.4-10.2) mg/dL AST 84 H (17-59) U/L Troponin I (0.000-0.034) ng/mL Total Protein 4.9 L (6.3-8.2) g/dL Albumin 2.0 L (3.5-5.0) g/dL Assessment and Plan Assessment: 1 Acute hypoxemic respiratory failure acquiring intubation mechanical ventilatory support on 08/30/2021 secondary to acute hypotension the patient found to have a moderate to large pneumoperitoneum without obvious etiology seen. Concerns for perforated viscus. Too critical for surgery following anes thesia induction on 08/30/2021. Remains on pressors. May be reconsidered for surgery today. 2 Sepsis with septic shock secondary to Klebsiella oxytoca, Enterococcus faecalis, Proteus mirabilis. Groin wound was present for Proteus mirabilis. PICC line catheter tip was positive for Proteus mirabilis. Currently on ceftriaxone and daptomycin. 3 GI bleed with drop in hemoglobin from 11.8 to 9.4. Currently 7.8. He received 2 units of packed red blood cells this admission. Received 2 unit vy sh frozen plasma. 4 Thrombocytopenia, recovered 5 Atrial fibrillation, anticoagulated with Eliquis in the outpatient setting, currently on hold 6 BiV pacemaker implant on 07/13/2021, required additional wound closure due to oozing of blood on 07/24/2021 7 History of coronary disease with previous stent placement 8 Troponin leak 9 Hypertension 10 Obstructive sleep apnea utilizing BiPAP 11 Osteoarthritis with previous joint replacements 12 Obesity 13 Hyperlipidemia Plan: The patient was seen and evaluated Chest x-ray, ABGs and labs reviewed Remains on pressors Continue fluid resuscitation Remains on sedation Obtain a stat serum cortisol level Obtain a TSH level Continue ceftriaxone and daptomycin for now Decrease FiO2 to 50% and continue other vent settings The plan may be for surgical intervention today Overall condition remains critical We will continue to follow and make further recommendations based on his clinical status I have personally seen and examined the patient, performed the documentation and the assessment and plan as written. Number of minutes spent on the visit: 15.
[2021-08-31] MEDS: AMIODARONE 450 MG in DEXTROSE 5% IN WATER 250 ML IV SCH ×2 (10:13)
--- NOTE | 2021-08-31 11:21 | P.PN ---
Subjective Patient is seen for follow-up for acute kidney injury on top of chronic kidney disease. He is currently being diuresed for volume overload. Patient has underlying cardiorenal syndrome. Serum creatinine staying at about 2.4-2.5 mg/dL. Serum creatinine increased to 2.8 yesterday. Blood pressure had been low and a chest x-ray was ordered. Patient was found to have pneumoperitoneum with free air in the abdomen and was taken to the OR. However after anesthesia patient crashed with hypotension and therefore the surgery was not performed and is most likely scheduled for today. Levo fed was around 0.2 mcg/kg and it is decreased to about 0.1 mcg/kg now. Urine output is low at 10-5 mL an hour. Maintained on IV fluids at 150 mL an hour. FiO2 at 50% Objective - Vital Signs Vital signs: Vital Signs Temp 99 F 08/31/21 08:00 Pulse 97 08/31/21 10:30 Resp 22 08/31/21 10:30 BP 102/65 08/31/21 10:30 Pulse Ox 100 08/31/21 10:30 Intake & Output 08/30/21 08/31/21 08/31/21 18:59 06:59 18:59 Intake Total 300 3266.000 708.955 Output Total 65 121 15 Balance 235 3145.000 693.955 Weight 128.9 kg 128.9 kg Intake: IV 300 2650 450 Sodium Chloride 0.9% 1, 300 1650 450 000 ml @ 150 mls/hr IV . Q6H40M [facility] Rx#:[id number] Sodium Chloride 0.9% 1, 1000 000 ml @ 999 mls/hr IV . Q1H1M [facility] Rx#:[id number] Intake, IV Titration 616.000 258.955 Amount DAPTOmycin 750 mg In 50 Sodium Chloride 0.9% 50 ml @ 100 mls/hr IVPB Q48H [facility] Rx#:[id number] Norepinephrine 8 mg In 516.000 158.955 Sodium Chloride 0.9% 250 ml @ 0.05 MCG/KG/MIN 12. 529 mls/hr IV .[id number] [facility] Rx#:[id number] cefTRIAXone 2 gm In 50 Sodium Chloride 0.9% 50 ml @ 100 mls/hr IVPB Q24HR [facility] Rx#:[id number] propofoL 1,000 mg In 100.000 Empty Bag 1 bag @ 5 MCG/ KG/MIN 3.885 mls/hr IV . Q24H [facility] Rx#:[id number] Output: Urine 65 121 15 Other: Voiding Method Indwelling Catheter Indwelling Catheter Indwelling Catheter # Bowel Movements 1 ABP, PAP, CO, CI - Last Documented Arterial Blood Pressure 98/50 - Exam Patient is sedated. He is on the vent. Entertained on levo fed Examination of the heart S1 and S2 Examination lungs bilateral breath sounds are heard Abdomen is soft nontender Exertion lower extremity shows chronic edema. And chronic skin changes. Both legs are wrapped - Labs CBC & Chem 7: 08/31/21 05:32 08/31/21 05:32 Labs: Abnormal Lab Results - Last 24 Hours (Table) 08/30/21 08/30/21 08/30/21 Range/Units 20:23 20:30 20:30 WBC 14.5 H (3.8-10.6) k/uL RBC 2.58 L (4.30-5.90) m/uL Hgb 7.7 L (13.0-17.5) gm/dL Hct 26.6 L (39.0-53.0) % MCV 103.1 H (80.0-100.0) fL MCHC 28.8 L (31.0-37.0) g/dL RDW 17.2 H (11.5-15.5) % Neutrophils # (Manual) 11.00 H (1.3-7.7) k/uL Lymphocytes # (Manual) (1.0-4.8) k/uL Monocytes # (Manual) (0-1.0) k/uL Metamyelocytes # (Man) 0.58 H (0) k/uL Myelocytes # (Manual) 0.15 H (0) k/uL Nucleated RBCs (0-0) /100 WBC ABG pH 7.25 L (7.35-7.45) ABG pCO2 53 H (35-45) mmHg ABG pO2 56 L* (83-108) mmHg ABG Total CO2 25 H (19-24) mmol/L ABG O2 Saturation 80.6 L (94-97) % Chloride 110 H (98-107) mmol/L Carbon Dioxide 21 L (22-30) mmol/L BUN 53 H (9-20) mg/dL Creatinine 2.92 H (0.66-1.25) mg/dL Glucose 135 H (74-99) mg/dL Calcium 7.4 L (8.4-10.2) mg/dL AST 68 H (17-59) U/L Troponin I (0.000-0.034) ng/mL Total Protein 4.7 L (6.3-8.2) g/dL Albumin 2.1 L (3.5-5.0) g/dL 08/30/21 08/31/21 08/31/21 Range/Units 20:30 05:32 05:32 WBC 12.1 H (3.8-10.6) k/uL RBC 2.66 L (4.30-5.90) m/uL Hgb 7.8 L (13.0-17.5) gm/dL Hct 26.7 L (39.0-53.0) % MCV 100.4 H (80.0-100.0) fL MCHC 29.1 L (31.0-37.0) g/dL RDW 17.6 H (11.5-15.5) % Neutrophils # (Manual) 10.00 H (1.3-7.7) k/uL Lymphocytes # (Manual) 0.85 L (1.0-4.8) k/uL Monocytes # (Manual) 1.09 H (0-1.0) k/uL Metamyelocytes # (Man) 0.12 H (0) k/uL Myelocytes # (Manual) (0) k/uL Nucleated RBCs 5 H (0-0) /100 WBC ABG pH (7.35-7.45) ABG pCO2 (35-45) mmHg ABG pO2 (83-108) mmHg ABG Total CO2 (19-24) mmol/L ABG O2 Saturation (94-97) % Chloride 112 H (98-107) mmol/L Carbon Dioxide (22-30) mmol/L BUN 55 H (9-20) mg/dL Creatinine 3.01 H (0.66-1.25) mg/dL Glucose 126 H (74-99) mg/dL Calcium 7.4 L (8.4-10.2) mg/dL AST 84 H (17-59) U/L Troponin I 0.138 H* (0.000-0.034) ng/mL Total Protein 4.9 L (6.3-8.2) g/dL Albumin 2.0 L (3.5-5.0) g/dL 08/31/21 Range/Units 06:05 WBC (3.8-10.6) k/uL RBC (4.30-5.90) m/uL Hgb (13.0-17.5) gm/dL Hct (39.0-53.0) % MCV (80.0-100.0) fL MCHC (31.0-37.0) g/dL RDW (11.5-15.5) % Neutrophils # (Manual) (1.3-7.7) k/uL Lymphocytes # (Manual) (1.0-4.8) k/uL Monocytes # (Manual) (0-1.0) k/uL Metamyelocytes # (Man) (0) k/uL Myelocytes # (Manual) (0) k/uL Nucleated RBCs (0-0) /100 WBC ABG pH (7.35-7.45) ABG pCO2 (35-45) mmHg ABG pO2 205 H (83-108) mmHg ABG Total CO2 (19-24) mmol/L ABG O2 Saturation 99.9 H (94-97) % Chloride (98-107) mmol/L Carbon Dioxide (22-30) mmol/L BUN (9-20) mg/dL Creatinine (0.66-1.25) mg/dL Glucose (74-99) mg/dL Calcium (8.4-10.2) mg/dL AST (17-59) U/L Troponin I (0.000-0.034) ng/mL Total Protein (6.3-8.2) g/dL Albumin (3.5-5.0) g/dL Assessment and Plan Assessment: 1. Acute kidney injury associated with cardiorenal syndrome and underlying infection causing ATN. Currently oliguric due to worsening hypotension and intra-abdominal pathology with perforated viscus. Computed tomography scan showed atrophic right kidney with multiple cysts. Left kidney showed cyst without nephrosis. Trace proteinuria on UA Acute on chronic systolic CHF with EF 40-45% with moderate pulmonary hypertension 3. Volume overload was improving with diuresis. Hold Lasix for now 4. Bacteremia associated with possibly central line infection with blood cultures positive for staph Proteus enterococcus and Klebsiella maintained on IV antibiotics, being followed by ID 5. CK D stage III B baseline creatinine about 1.5 etiology nephrosclerosis 6. Acute GI bleed and epistaxis status post EGD and colonoscopy this admission status post DDAVP 7. Anemia, multifactorial associated with blood loss from GI bleed and epistaxis as well as component of anemia of chronic disease, maintained on Aranesp 8. Perforated viscus with free air in the abdomen scheduled for possible surgery today Plan: Continue IV fluids. ZHANG Lepe. Repeat BMP later on this evening
--- NOTE | 2021-08-31 11:42 | P.PN ---
Subjective Progress Note Date: 08/31/21 This is a pleasant 71-year-old male past medical history significant for coronary artery disease status post stent placement to the mid and proximal circumflex, persistent atrial fibrillation on long-term anticoagulation, hypertension, dyslipidemia, chronic kidney disease, ventricular arrhythmias (PVCs and NSVT), and obstructive sleep apnea. He follows in the office with Dr. Fields, underwent biventricular pacemaker implantation 07/13/2021 for management of persistent A. fib with RVR. Patient was found to have severe diverticulosis with rectal bleeding, internal hemorrhoids on his colonoscopy. Patient yesterday developed abdominal discomfort and had a CT of the abdomen which showed moderate to large pneumoperitoneum without obvious etiology. There is concerning for perforated viscus. No bowel shock she. Small pelvic free fluid. And a trace of her right pleural effusion and mild bibasilar opacities. Patient was taken to the operating room by Dr. Somers, however prior to surgery he became significantly hypotensive upon induction of anesthesia. In the procedure was well discontinued. We've been reconsulted to see the patient for atrial fibrillation. Patient has a known history of atrial fibrillation. There are no noted episodes last night of atrial fibrillation. Today he remains mechanically ventilated. Will start IV amiodarone, due to intubation. Heart rate remains controlled at 97. Patient's remains hypotensive. Continue with midodrine and pressers. Continue to hold anticoagulation due to bleeding risk. Troponin elevated at 0.138. TSH 0.824. Chest x-ray shows bilateral infiltrates and pleural effusion stable Objective - Vital Signs Vital signs: Vital Signs Temp 99 F 08/31/21 08:00 Pulse 97 08/31/21 10:30 Resp 22 08/31/21 10:30 BP 102/65 08/31/21 10:30 Pulse Ox 100 08/31/21 10:30 Intake & Output 08/30/21 08/31/21 08/31/21 18:59 06:59 18:59 Intake Total 300 3266.000 708.955 Output Total 65 121 15 Balance 235 3145.000 693.955 Weight 128.9 kg 128.9 kg Intake: IV 300 2650 450 Sodium Chloride 0.9% 1, 300 1650 450 000 ml @ 150 mls/hr IV . Q6H40M [facility] Rx#:[id number] Sodium Chloride 0.9% 1, 1000 000 ml @ 999 mls/hr IV . Q1H1M [facility] Rx#:[id number] Intake, IV Titration 616.000 258.955 Amount DAPTOmycin 750 mg In 50 Sodium Chloride 0.9% 50 ml @ 100 mls/hr IVPB Q48H [facility] Rx#:[id number] Norepinephrine 8 mg In 516.000 158.955 Sodium Chloride 0.9% 250 ml @ 0.05 MCG/KG/MIN 12. 529 mls/hr IV .[id number] [facility] Rx#:[id number] cefTRIAXone 2 gm In 50 Sodium Chloride 0.9% 50 ml @ 100 mls/hr IVPB Q24HR [facility] Rx#:[id number] propofoL 1,000 mg In 100.000 Empty Bag 1 bag @ 5 MCG/ KG/MIN 3.885 mls/hr IV . Q24H [facility] Rx#:[id number] Output: Urine 65 121 15 Other: Voiding Method Indwelling Catheter Indwelling Catheter Indwelling Catheter # Bowel Movements 1 ABP, PAP, CO, CI - Last Documented Arterial Blood Pressure 98/50 - Exam PHYSICAL EXAM: VITAL SIGNS: Reviewed. GENERAL: Well-developed in no acute distress. HEENT: Head is normocephalic. Pupils are equal, round. Sclerae anicteric. Mucous membranes of the mouth are moist. NECK: Supple. No JVD or thyromegaly RESPIRATORY: Mechanically ventilated Lungs diminished to auscultation bilaterally. CARDIO: Regular rate and rhythm. S1 and S2 heard. No murmur or gallops. EXTREMITIES: Normal range of motion. No clubbing or cyanosis. Peripheral pulses intact. Negative for bilateral lower extremity edema NEURO: Sedated - Labs CBC & Chem 7: 08/31/21 05:32 08/31/21 05:32 Labs: Abnormal Lab Results - Last 24 Hours (Table) 08/30/21 08/30/21 08/30/21 Range/Units 20:23 20:30 20:30 WBC 14.5 H (3.8-10.6) k/uL RBC 2.58 L (4.30-5.90) m/uL Hgb 7.7 L (13.0-17.5) gm/dL Hct 26.6 L (39.0-53.0) % MCV 103.1 H (80.0-100.0) fL MCHC 28.8 L (31.0-37.0) g/dL RDW 17.2 H (11.5-15.5) % Neutrophils # (Manual) 11.00 H (1.3-7.7) k/uL Lymphocytes # (Manual) (1.0-4.8) k/uL Monocytes # (Manual) (0-1.0) k/uL Metamyelocytes # (Man) 0.58 H (0) k/uL Myelocytes # (Manual) 0.15 H (0) k/uL Nucleated RBCs (0-0) /100 WBC ABG pH 7.25 L (7.35-7.45) ABG pCO2 53 H (35-45) mmHg ABG pO2 56 L* (83-108) mmHg ABG Total CO2 25 H (19-24) mmol/L ABG O2 Saturation 80.6 L (94-97) % Chloride 110 H (98-107) mmol/L Carbon Dioxide 21 L (22-30) mmol/L BUN 53 H (9-20) mg/dL Creatinine 2.92 H (0.66-1.25) mg/dL Glucose 135 H (74-99) mg/dL Calcium 7.4 L (8.4-10.2) mg/dL AST 68 H (17-59) U/L Troponin I (0.000-0.034) ng/mL Total Protein 4.7 L (6.3-8.2) g/dL Albumin 2.1 L (3.5-5.0) g/dL 08/30/21 08/31/21 08/31/21 Range/Units 20:30 05:32 05:32 WBC 12.1 H (3.8-10.6) k/uL RBC 2.66 L (4.30-5.90) m/uL Hgb 7.8 L (13.0-17.5) gm/dL Hct 26.7 L (39.0-53.0) % MCV 100.4 H (80.0-100.0) fL MCHC 29.1 L (31.0-37.0) g/dL RDW 17.6 H (11.5-15.5) % Neutrophils # (Manual) 10.00 H (1.3-7.7) k/uL Lymphocytes # (Manual) 0.85 L (1.0-4.8) k/uL Monocytes # (Manual) 1.09 H (0-1.0) k/uL Metamyelocytes # (Man) 0.12 H (0) k/uL Myelocytes # (Manual) (0) k/uL Nucleated RBCs 5 H (0-0) /100 WBC ABG pH (7.35-7.45) ABG pCO2 (35-45) mmHg ABG pO2 (83-108) mmHg ABG Total CO2 (19-24) mmol/L ABG O2 Saturation (94-97) % Chloride 112 H (98-107) mmol/L Carbon Dioxide (22-30) mmol/L BUN 55 H (9-20) mg/dL Creatinine 3.01 H (0.66-1.25) mg/dL Glucose 126 H (74-99) mg/dL Calcium 7.4 L (8.4-10.2) mg/dL AST 84 H (17-59) U/L Troponin I 0.138 H* (0.000-0.034) ng/mL Total Protein 4.9 L (6.3-8.2) g/dL Albumin 2.0 L (3.5-5.0) g/dL 08/31/21 Range/Units 06:05 WBC (3.8-10.6) k/uL RBC (4.30-5.90) m/uL Hgb (13.0-17.5) gm/dL Hct (39.0-53.0) % MCV (80.0-100.0) fL MCHC (31.0-37.0) g/dL RDW (11.5-15.5) % Neutrophils # (Manual) (1.3-7.7) k/uL Lymphocytes # (Manual) (1.0-4.8) k/uL Monocytes # (Manual) (0-1.0) k/uL Metamyelocytes # (Man) (0) k/uL Myelocytes # (Manual) (0) k/uL Nucleated RBCs (0-0) /100 WBC ABG pH (7.35-7.45) ABG pCO2 (35-45) mmHg ABG pO2 205 H (83-108) mmHg ABG Total CO2 (19-24) mmol/L ABG O2 Saturation 99.9 H (94-97) % Chloride (98-107) mmol/L Carbon Dioxide (22-30) mmol/L BUN (9-20) mg/dL Creatinine (0.66-1.25) mg/dL Glucose (74-99) mg/dL Calcium (8.4-10.2) mg/dL AST (17-59) U/L Troponin I (0.000-0.034) ng/mL Total Protein (6.3-8.2) g/dL Albumin (3.5-5.0) g/dL Assessment and Plan Assessment: Acute GI bleed Acute hypotension History of Persistent atrial fibrillation anticoagulation on hold due to GI bleed Chronic systolic heart failure Coronary artery disease status post angioplasty to the mid and proximal circumflex and history of hypertension Dyslipidemia Chronic kidney disease Plan: Start IV amiodarone Continue to hold anticoagulation due to GI bleed Continue with other current cardiac medications Continue to tolerate pressors as tolerated
--- NOTE | 2021-08-31 12:13 | P.PN ---
Subjective Patient was examined in the ICU today unfortunately required mechanical ventilation was intubated apparently yesterday. He was transferred from the medical floor due to a possible perforated viscus. Patient is being evaluated by consultants. Case discussed with RN present at bedside. There has been some discoloration noted in his right foot. Objective - Vital Signs Vital signs: Vital Signs Temp 99 F 08/31/21 08:00 Pulse 97 08/31/21 10:30 Resp 22 08/31/21 10:30 BP 102/65 08/31/21 10:30 Pulse Ox 100 08/31/21 10:30 Intake & Output 08/30/21 08/31/21 08/31/21 18:59 06:59 18:59 Intake Total 300 3266.000 708.955 Output Total 65 121 15 Balance 235 3145.000 693.955 Weight 128.9 kg 128.9 kg Intake: IV 300 2650 450 Sodium Chloride 0.9% 1, 300 1650 450 000 ml @ 150 mls/hr IV . Q6H40M [facility] Rx#:[id number] Sodium Chloride 0.9% 1, 1000 000 ml @ 999 mls/hr IV . Q1H1M [facility] Rx#:[id number] Intake, IV Titration 616.000 258.955 Amount DAPTOmycin 750 mg In 50 Sodium Chloride 0.9% 50 ml @ 100 mls/hr IVPB Q48H [facility] Rx#:[id number] Norepinephrine 8 mg In 516.000 158.955 Sodium Chloride 0.9% 250 ml @ 0.05 MCG/KG/MIN 12. 529 mls/hr IV .[id number] [facility] Rx#:[id number] cefTRIAXone 2 gm In 50 Sodium Chloride 0.9% 50 ml @ 100 mls/hr IVPB Q24HR [facility] Rx#:[id number] propofoL 1,000 mg In 100.000 Empty Bag 1 bag @ 5 MCG/ KG/MIN 3.885 mls/hr IV . Q24H [facility] Rx#:[id number] Output: Urine 65 121 15 Other: Voiding Method Indwelling Catheter Indwelling Catheter Indwelling Catheter # Bowel Movements 1 ABP, PAP, CO, CI - Last Documented Arterial Blood Pressure 98/50 - Exam Gen: Patient is currently intubated on mechanical ventilation. Resp: Bilateral air entry, slightly decreased breath sounds secondary body habitus. CVS: Normal S1/S2 no murmurs heard. GI: Abdomen is slightly tender on palpation bilaterally. Positive bowel sounds. : no SPT, no CVAT, esquivel catheter not present MSK: +pitting edema, no clubbing Psych: Unable to be assessed patient sedated Extremities/back first and second toes noted right leg - Labs CBC & Chem 7: 08/31/21 05:32 08/31/21 05:32 Labs: Abnormal Lab Results - Last 24 Hours (Table) 08/30/21 08/30/21 08/30/21 Range/Units 20:23 20:30 20:30 WBC 14.5 H (3.8-10.6) k/uL RBC 2.58 L (4.30-5.90) m/uL Hgb 7.7 L (13.0-17.5) gm/dL Hct 26.6 L (39.0-53.0) % MCV 103.1 H (80.0-100.0) fL MCHC 28.8 L (31.0-37.0) g/dL RDW 17.2 H (11.5-15.5) % Neutrophils # (Manual) 11.00 H (1.3-7.7) k/uL Lymphocytes # (Manual) (1.0-4.8) k/uL Monocytes # (Manual) (0-1.0) k/uL Metamyelocytes # (Man) 0.58 H (0) k/uL Myelocytes # (Manual) 0.15 H (0) k/uL Nucleated RBCs (0-0) /100 WBC ABG pH 7.25 L (7.35-7.45) ABG pCO2 53 H (35-45) mmHg ABG pO2 56 L* (83-108) mmHg ABG Total CO2 25 H (19-24) mmol/L ABG O2 Saturation 80.6 L (94-97) % Chloride 110 H (98-107) mmol/L Carbon Dioxide 21 L (22-30) mmol/L BUN 53 H (9-20) mg/dL Creatinine 2.92 H (0.66-1.25) mg/dL Glucose 135 H (74-99) mg/dL Calcium 7.4 L (8.4-10.2) mg/dL AST 68 H (17-59) U/L Troponin I (0.000-0.034) ng/mL Total Protein 4.7 L (6.3-8.2) g/dL Albumin 2.1 L (3.5-5.0) g/dL 08/30/21 08/31/21 08/31/21 Range/Units 20:30 05:32 05:32 WBC 12.1 H (3.8-10.6) k/uL RBC 2.66 L (4.30-5.90) m/uL Hgb 7.8 L (13.0-17.5) gm/dL Hct 26.7 L (39.0-53.0) % MCV 100.4 H (80.0-100.0) fL MCHC 29.1 L (31.0-37.0) g/dL RDW 17.6 H (11.5-15.5) % Neutrophils # (Manual) 10.00 H (1.3-7.7) k/uL Lymphocytes # (Manual) 0.85 L (1.0-4.8) k/uL Monocytes # (Manual) 1.09 H (0-1.0) k/uL Metamyelocytes # (Man) 0.12 H (0) k/uL Myelocytes # (Manual) (0) k/uL Nucleated RBCs 5 H (0-0) /100 WBC ABG pH (7.35-7.45) ABG pCO2 (35-45) mmHg ABG pO2 (83-108) mmHg ABG Total CO2 (19-24) mmol/L ABG O2 Saturation (94-97) % Chloride 112 H (98-107) mmol/L Carbon Dioxide (22-30) mmol/L BUN 55 H (9-20) mg/dL Creatinine 3.01 H (0.66-1.25) mg/dL Glucose 126 H (74-99) mg/dL Calcium 7.4 L (8.4-10.2) mg/dL AST 84 H (17-59) U/L Troponin I 0.138 H* (0.000-0.034) ng/mL Total Protein 4.9 L (6.3-8.2) g/dL Albumin 2.0 L (3.5-5.0) g/dL 08/31/21 Range/Units 06:05 WBC (3.8-10.6) k/uL RBC (4.30-5.90) m/uL Hgb (13.0-17.5) gm/dL Hct (39.0-53.0) % MCV (80.0-100.0) fL MCHC (31.0-37.0) g/dL RDW (11.5-15.5) % Neutrophils # (Manual) (1.3-7.7) k/uL Lymphocytes # (Manual) (1.0-4.8) k/uL Monocytes # (Manual) (0-1.0) k/uL Metamyelocytes # (Man) (0) k/uL Myelocytes # (Manual) (0) k/uL Nucleated RBCs (0-0) /100 WBC ABG pH (7.35-7.45) ABG pCO2 (35-45) mmHg ABG pO2 205 H (83-108) mmHg ABG Total CO2 (19-24) mmol/L ABG O2 Saturation 99.9 H (94-97) % Chloride (98-107) mmol/L Carbon Dioxide (22-30) mmol/L BUN (9-20) mg/dL Creatinine (0.66-1.25) mg/dL Glucose (74-99) mg/dL Calcium (8.4-10.2) mg/dL AST (17-59) U/L Troponin I (0.000-0.034) ng/mL Total Protein (6.3-8.2) g/dL Albumin (3.5-5.0) g/dL Assessment and Plan Assessment: Assessment: #1 pneumoperitoneum -new onset #1 acute gastrointestinal bleeding #2 epistaxis status post packing-resolved #3 left foot cellulitis/right femoral central line associated bloodstream infection #4 congestive heart failure with reduced ejection fraction #5 acute kidney injury on CK component of cardiorenal syndrome #6 paroxysmal atrial fibrillation status post pacemaker on a coagulation #7 essential hypertension #8 history of coronary disease status post stents 10 years ago #9 Constipation/abdominal discomfort #10 sigmoid diverticulosis/small bowel intestinal bleeding per colonoscopy #11 acute respiratory failure currently on MV Plan: -Admit to medicine for close monitoring -Aspiration/fall precaution/HOB 30 -Patient was transferred to the ICU due to possible perforation. CT abdomen and pelvis was completed and the patient was subsequently intubated and currently on mechanical ventilation. -There was attempt to completely exploratory laparoscopy yesterday however patient's blood pressure plummeted. -Continue management as per surgical team. -Note by GI on 08/16/2021 suggested against present regulation due to high risk of rebleed with sigmoid diverticulosis and small bowel intestinal bleeding. -Hemoglobin currently stable transfuse if less than 7 -Will require colonoscopy 3-6 months for polypectomy -ABG reviewed. -Repeat blood cultures negative -Continue with daptomycin and Rocephin needs antimicrobials until 08/31/2021. -DVT prophylaxis SCDs for now will need clearance to initiate pharmacologic DVT prophylaxis by GI. Overall prognosis poor. Multiple attempts made to discuss CODE STATUS with family continues to be full code currently.
--- NOTE | 2021-08-31 12:48 | P.PN ---
Subjective Progress Note Date: 08/31/21 CHIEF COMPLAINT: Abdominal pain HISTORY OF PRESENT ILLNESS: The patient is a 71-year-old male who yesterday had diagnostic studies consistent with pneumoperitoneum with abdominal pain. Patient was taken to the operating room however was unable to tolerate general anesthetic and unstable. he was taken back to the intensive care unit for further resuscitation. Patient was fluid resuscitated and is only Levophed and intubated. Per discussion with circle edger, patient more stable for attempted laparotomy. Oxygen saturation has improved. REVIEW OF ORGAN SYSTEMS: No fevers or chills. PHYSICAL EXAM: VITALS: Reviewed CONSTITUTIONAL: Well developed and in no acute distress. EYES: Conjuctivae without sclera icterus. Extraocular movements grossly intact. HEAD, EARS, NOSE, THROAT: Moist buccal mucosa. Head is atraumatic, normocephalic. Hears conversational speech. No nasal drainage. RESPIRATORY: Mechanical ventilation. CARDIOVASCULAR: 2+ radial pulses. ABDOMEN: Obese. Ecchymosis along the upper abdomen. Tender MUSCULOSKELETAL: No clubbing SKIN: Ischemic changes of the left great toe with cyanosis. NEUROLOGIC: No focal or lateralizing signs PSYCH: Sedated CLINCAL LABS: Reviewed. WBC elevated 8.9-14.5 now declined to 12.1. Hemoglobin stable 7.8. ASSESSMENT: 1. Abdominal pain with pneumoperitoneum PLAN: 1. We will reattempt exploratory laparotomy as patient is stable. Objective - Vital Signs Vital signs: Vital Signs Temp 98.1 F 08/31/21 05:00 Pulse 96 08/31/21 07:00 Resp 22 08/31/21 07:00 BP 139/67 08/31/21 07:00 Pulse Ox 100 08/31/21 07:00 Intake & Output 08/30/21 08/31/21 08/31/21 18:59 06:59 18:59 Intake Total 300 3266.000 Output Total 65 121 Balance 235 3145.000 Weight 128.9 kg Intake: IV 300 2650 Sodium Chloride 0.9% 1, 300 1650 000 ml @ 150 mls/hr IV . Q6H40M [facility] Rx#:[id number] Sodium Chloride 0.9% 1, 1000 000 ml @ 999 mls/hr IV . Q1H1M [facility] Rx#:[id number] Intake, IV Titration 616.000 Amount Norepinephrine 8 mg In 516.000 Sodium Chloride 0.9% 250 ml @ 0.05 MCG/KG/MIN 12. 529 mls/hr IV .[id number] [facility] Rx#:[id number] propofoL 1,000 mg In 100.000 Empty Bag 1 bag @ 5 MCG/ KG/MIN 3.885 mls/hr IV . Q24H [facility] Rx#:[id number] Output: Urine 65 121 Other: Voiding Method Indwelling Catheter Indwelling Catheter # Bowel Movements 1 ABP, PAP, CO, CI - Last Documented Arterial Blood Pressure 143/72 - Labs CBC & Chem 7: 08/31/21 05:32 08/31/21 05:32 Labs: Abnormal Lab Results - Last 24 Hours (Table) 08/30/21 08/30/21 08/30/21 Range/Units 06:43 20:23 20:30 WBC 14.5 H (3.8-10.6) k/uL RBC 2.58 L (4.30-5.90) m/uL Hgb 7.7 L (13.0-17.5) gm/dL Hct 26.6 L (39.0-53.0) % MCV 103.1 H (80.0-100.0) fL MCHC 28.8 L (31.0-37.0) g/dL RDW 17.2 H (11.5-15.5) % Neutrophils # (Manual) 11.00 H (1.3-7.7) k/uL Lymphocytes # (Manual) 0.53 L (1.0-4.8) k/uL Monocytes # (Manual) (0-1.0) k/uL Metamyelocytes # (Man) 0.18 H 0.58 H (0) k/uL Myelocytes # (Manual) 0.27 H 0.15 H (0) k/uL Nucleated RBCs (0-0) /100 WBC ABG pH 7.25 L (7.35-7.45) ABG pCO2 53 H (35-45) mmHg ABG pO2 56 L* (83-108) mmHg ABG Total CO2 25 H (19-24) mmol/L ABG O2 Saturation 80.6 L (94-97) % Chloride (98-107) mmol/L Carbon Dioxide (22-30) mmol/L BUN (9-20) mg/dL Creatinine (0.66-1.25) mg/dL Glucose (74-99) mg/dL Calcium (8.4-10.2) mg/dL AST (17-59) U/L Troponin I (0.000-0.034) ng/mL Total Protein (6.3-8.2) g/dL Albumin (3.5-5.0) g/dL 08/30/21 08/30/21 08/31/21 Range/Units 20:30 20:30 05:32 WBC 12.1 H (3.8-10.6) k/uL RBC 2.66 L (4.30-5.90) m/uL Hgb 7.8 L (13.0-17.5) gm/dL Hct 26.7 L (39.0-53.0) % MCV 100.4 H (80.0-100.0) fL MCHC 29.1 L (31.0-37.0) g/dL RDW 17.6 H (11.5-15.5) % Neutrophils # (Manual) 10.00 H (1.3-7.7) k/uL Lymphocytes # (Manual) 0.85 L (1.0-4.8) k/uL Monocytes # (Manual) 1.09 H (0-1.0) k/uL Metamyelocytes # (Man) 0.12 H (0) k/uL Myelocytes # (Manual) (0) k/uL Nucleated RBCs 5 H (0-0) /100 WBC ABG pH (7.35-7.45) ABG pCO2 (35-45) mmHg ABG pO2 (83-108) mmHg ABG Total CO2 (19-24) mmol/L ABG O2 Saturation (94-97) % Chloride 110 H (98-107) mmol/L Carbon Dioxide 21 L (22-30) mmol/L BUN 53 H (9-20) mg/dL Creatinine 2.92 H (0.66-1.25) mg/dL Glucose 135 H (74-99) mg/dL Calcium 7.4 L (8.4-10.2) mg/dL AST 68 H (17-59) U/L Troponin I 0.138 H* (0.000-0.034) ng/mL Total Protein 4.7 L (6.3-8.2) g/dL Albumin 2.1 L (3.5-5.0) g/dL 08/31/21 08/31/21 Range/Units 05:32 06:05 WBC (3.8-10.6) k/uL RBC (4.30-5.90) m/uL Hgb (13.0-17.5) gm/dL Hct (39.0-53.0) % MCV (80.0-100.0) fL MCHC (31.0-37.0) g/dL RDW (11.5-15.5) % Neutrophils # (Manual) (1.3-7.7) k/uL Lymphocytes # (Manual) (1.0-4.8) k/uL Monocytes # (Manual) (0-1.0) k/uL Metamyelocytes # (Man) (0) k/uL Myelocytes # (Manual) (0) k/uL Nucleated RBCs (0-0) /100 WBC ABG pH (7.35-7.45) ABG pCO2 (35-45) mmHg ABG pO2 205 H (83-108) mmHg ABG Total CO2 (19-24) mmol/L ABG O2 Saturation 99.9 H (94-97) % Chloride 112 H (98-107) mmol/L Carbon Dioxide (22-30) mmol/L BUN 55 H (9-20) mg/dL Creatinine 3.01 H (0.66-1.25) mg/dL Glucose 126 H (74-99) mg/dL Calcium 7.4 L (8.4-10.2) mg/dL AST 84 H (17-59) U/L Troponin I (0.000-0.034) ng/mL Total Protein 4.9 L (6.3-8.2) g/dL Albumin 2.0 L (3.5-5.0) g/dL Assessment and Plan (1) Morbid (severe) obesity due to excess calories Current Visit: Yes Status: Acute Code(s): E66.01 - MORBID (SEVERE) OBESITY DUE TO EXCESS CALORIES SNOMED Code(s): 583098614 (2) BMI 35.0-35.9,adult Current Visit: Yes Status: Acute Code(s): Z68.35 - BODY MASS INDEX [BMI] 35.0-35.9, ADULT SNOMED Code(s): 940167204 (3) Pacemaker complications Current Visit: Yes Status: Acute Code(s): T82.9XXA - UNSP COMP OF CARDIAC AND VASCULAR PROSTH DEV/GRFT, INIT SNOMED Code(s): 366791500 (4) Atrial fibrillation Current Visit: Yes Status: Acute Code(s): I48.91 - UNSPECIFIED ATRIAL FIBRILLATION SNOMED Code(s): 48260879 (5) GI bleed Current Visit: Yes Status: Acute Code(s): K92.2 - GASTROINTESTINAL HEM ORRHAGE, UNSPECIFIED SNOMED Code(s): 58929499 (6) Hematochezia Current Visit: Yes Status: Acute Code(s): K92.1 - MELENA SNOMED Code(s): 194704763 (7) Hypotension Current Visit: Yes Status: Acute Code(s): I95.9 - HYPOTENSION, UNSPECIFIED SNOMED Code(s): 08819647 (8) Melena Current Visit: Yes Status: Acute Code(s): K92.1 - MELENA SNOMED Code(s): 1287988 (9) Rapid atrial fibrillation Current Visit: No Status: Acute Code(s): I48.91 - UNSPECIFIED ATRIAL FIBRILLATION SNOMED Code(s): 798572634 (10) Hemorrhage of sigmoid colon due to diverticulosis Current Visit: Yes Status: Acute Code(s): K57.31 - DVRTCLOS OF LG INT W/O PERFORATION OR ABSCESS W BLEEDING SNOMED Code(s): 5473361239621852 (11) Small intestinal hemorrhage Current Visit: Yes Status: Acute Code(s): K92.2 - GASTROINTESTINAL HEMORRHAGE, UNSPECIFIED SNOMED Code(s): 25553548
--- NOTE | 2021-08-31 16:38 | P.PN ---
Progress Note - Text Progress Note Date: 08/31/21 Contacted the patient's son Silvano regarding updates. Patient did more stable for surgery. Pressors are improving in terms of concentration. Pending operating room availability to proceed. All questions and answers addressed.
[2021-08-31] MEDS: NOREPINEPHRINE 8 MG in SODIUM CHLORIDE 0.9% 250 ML IV SCH (17:24)
[2021-08-31] MEDS: ALPRAZolam 1 MG TAB PO SCH (21:54)
--- NOTE | 2021-08-31 22:38 | P.PN ---
Subjective Progress Note Date: 08/30/21 Principal diagnosis: Bacteremia Patient is a 71-year-old male admitted to the hospital about a week ago for evaluation of bleeding per rectum and weakness the patient did have a right groin central line with the patient was noticed to have some purulent drainage which has been discontinued blood culture positive with multiple pathogen. The patient has pulled out his PICC line and followed by his midline On today's evaluation is 08/30/2021, patient remains to be afebrile, the patient remains to be lethargic and was unable to provide any history today, no vomiting and no diarrhea has been reported by the nursing staff Objective - Vital Signs Vital signs: Vital Signs Temp 97.4 F L 08/30/21 07:50 Pulse 101 H 08/30/21 07:50 Resp 25 H 08/30/21 07:50 BP 98/63 08/30/21 07:50 Pulse Ox 95 08/30/21 07:50 Intake & Output 08/29/21 08/30/21 08/30/21 18:59 06:59 18:59 Intake Total 820 Output Total 900 Balance 820 -900 Intake: Intake, IV Titration 100 Amount DAPTOmycin 750 mg In 50 Sodium Chloride 0.9% 50 ml @ 100 mls/hr IVPB Q48H [facility] Rx#:[id number] cefTRIAXone 2 gm In 50 Sodium Chloride 0.9% 50 ml @ 100 mls/hr IVPB Q24HR [facility] Rx#:[id number] Oral 720 Output: Urine 900 Other: Voiding Method Indwelling Catheter Indwelling Catheter Indwelling Catheter # Bowel Movements 1 - Exam GENERAL DESCRIPTION: An elderly male lying in bed in no distress RESPIRATORY SYSTEM: Unlabored breathing , decreased breath sounds at bases HEART: S1 S2 regular rate and rhythm , ABDOMEN: Soft , mild distention EXTREMITIES: Bilateral lower extremity with swelling and some blister formation no significant redness - Labs CBC & Chem 7: 08/31/21 05:32 08/31/21 05:32 Labs: Abnormal Lab Results - Last 24 Hours (Table) 08/29/21 08/29/21 08/29/21 Range/Units 11:27 11:27 20:59 RBC 2.41 L (4.30-5.90) m/uL Hgb 7.6 L (13.0-17.5) gm/dL Hct 24.4 L (39.0-53.0) % MCV 101.3 H (80.0-100.0) fL MCHC (31.0-37.0) g/dL RDW 17.3 H (11.5-15.5) % Lymphocytes # (Manual) 0.69 L (1.0-4.8) k/uL Metamyelocytes # (Man) 0.31 H (0) k/uL Myelocytes # (Manual) 0.46 H (0) k/uL ABG pH 7.46 H (7.35-7.45) ABG pO2 63 L (83-108) mmHg ABG HCO3 28 H (21-25) mmol/L ABG Total CO2 29 H (19-24) mmol/L ABG O2 Saturation 92.8 L (94-97) % Chloride (98-107) mmol/L BUN 47 H (9-20) mg/dL Creatinine 2.57 H (0.66-1.25) mg/dL Glucose 112 H (74-99) mg/dL Calcium 7.5 L (8.4-10.2) mg/dL 08/30/21 08/30/21 Range/Units 06:43 06:43 RBC 2.45 L (4.30-5.90) m/uL Hgb 7.5 L (13.0-17.5) gm/dL Hct 24.8 L (39.0-53.0) % MCV 101.3 H (80.0-100.0) fL MCHC 30.3 L (31.0-37.0) g/dL RDW 17.9 H (11.5-15.5) % Lymphocytes # (Manual) 0.53 L (1.0-4.8) k/uL Metamyelocytes # (Man) 0.18 H (0) k/uL Myelocytes # (Manual) 0.27 H (0) k/uL ABG pH (7.35-7.45) ABG pO2 (83-108) mmHg ABG HCO3 (21-25) mmol/L ABG Total CO2 (19-24) mmol/L ABG O2 Saturation (94-97) % Chloride 108 H (98-107) mmol/L BUN 52 H (9-20) mg/dL Creatinine 2.86 H (0.66-1.25) mg/dL Glucose 114 H (74-99) mg/dL Calcium 7.9 L (8.4-10.2) mg/dL Assessment and Plan (1) Bacteremia Current Visit: Yes Status: Acute Code(s): R78.81 - BACTEREMIA SNOMED Code(s): 2653458 Plan: Patient with polymicrobial bacteremia concern for right femoral central line which has been discontinued, , catheter tip cultures finalized his Proteus, blood culture positive for enterococcus Klebsiella and Proteus, groin culture with Proteus, patient repeat blood culture were negative on 08/17/2021, patient is currently covered with daptomycin and Rocephin to continue and monitor his clinical course closely Time with Patient: Less than 30
--- NOTE | 2021-08-31 22:42 | P.PN ---
Subjective Progress Note Date: 08/31/21 Principal diagnosis: Bacteremia Patient is a 71-year-old male admitted to the hospital about a week ago for evaluation of bleeding per rectum and weakness the patient did have a right groin central line with the patient was noticed to have some purulent drainage which has been discontinued blood culture positive with multiple pathogen. The patient has pulled out his PICC line and followed by his midline, patient did have a CT of abdominal pelvis completed 08/30/2021 with evidence of pneumoperitoneum, patient was taken to the OR however was considered to be unstable for surgery subsequently transferred to the ICU On today's evaluation is 08/31/2021, patient continues to be afebrile, the patient is sedated on the vent, requiring pressor support to maintain his blood pressure, no significant purulent secretion through the ET or any other changes reported by the nursing staff Objective - Vital Signs Vital signs: Vital Signs Temp 98 F 08/31/21 16:00 Pulse 86 08/31/21 20:30 Resp 22 08/31/21 20:30 BP 104/75 08/31/21 20:30 Pulse Ox 100 08/31/21 20:30 Intake & Output 08/31/21 08/31/21 09/01/21 06:59 18:59 06:59 Intake Total 3266.000 2466.000 150 Output Total 121 140 15 Balance 3145.000 2326.000 135 Weight 128.9 kg 128.9 kg Intake: IV 2650 1650 150 Sodium Chloride 0.9% 1, 1650 1650 150 000 ml @ 150 mls/hr IV . Q6H40M [facility] Rx#:[id number] Sodium Chloride 0.9% 1, 1000 000 ml @ 999 mls/hr IV . Q1H1M [facility] Rx#:[id number] Intake, IV Titration 616.000 816.000 Amount DAPTOmycin 750 mg In 50 Sodium Chloride 0.9% 50 ml @ 100 mls/hr IVPB Q48H [facility] Rx#:[id number] Norepinephrine 8 mg In 516.000 516.000 Sodium Chloride 0.9% 250 ml @ 0.05 MCG/KG/MIN 12. 529 mls/hr IV .[id number] [facility] Rx#:[id number] cefTRIAXone 2 gm In 50 Sodium Chloride 0.9% 50 ml @ 100 mls/hr IVPB Q24HR [facility] Rx#:[id number] propofoL 1,000 mg In 100.000 200 Empty Bag 1 bag @ 5 MCG/ KG/MIN 3.885 mls/hr IV . Q24H [facility] Rx#:[id number] Output: Urine 121 140 15 Other: Voiding Method Indwelling Catheter Indwelling Catheter ABP, PAP, CO, CI - Last Documented Arterial Blood Pressure 107/58 - Exam GENERAL DESCRIPTION: An elderly male intubated on the vent RESPIRATORY SYSTEM: Unlabored breathing , decreased breath sounds at bases HEART: S1 S2 regular rate and rhythm , ABDOMEN: Soft , mild distention EXTREMITIES: Bilateral lower extremity are currently wrapped no drainage on the dressing - Labs CBC & Chem 7: 08/31/21 05:32 08/31/21 05:32 Labs: Abnormal Lab Results - Last 24 Hours (Table) 08/30/21 08/31/21 08/31/21 Range/Units 20:30 05:32 05:32 WBC 12.1 H (3.8-10.6) k/uL RBC 2.66 L (4.30-5.90) m/uL Hgb 7.8 L (13.0-17.5) gm/dL Hct 26.7 L (39.0-53.0) % MCV 100.4 H (80.0-100.0) fL MCHC 29.1 L (31.0-37.0) g/dL RDW 17.6 H (11.5-15.5) % Neutrophils # (Manual) 11.00 H 10.00 H (1.3-7.7) k/uL Lymphocytes # (Manual) 0.85 L (1.0-4.8) k/uL Monocytes # (Manual) 1.09 H (0-1.0) k/uL Metamyelocytes # (Man) 0.58 H 0.12 H (0) k/uL Myelocytes # (Manual) 0.15 H (0) k/uL Nucleated RBCs 5 H (0-0) /100 WBC ABG pO2 (83-108) mmHg ABG O2 Saturation (94-97) % Chloride 112 H (98-107) mmol/L BUN 55 H (9-20) mg/dL Creatinine 3.01 H (0.66-1.25) mg/dL Glucose 126 H (74-99) mg/dL Calcium 7.4 L (8.4-10.2) mg/dL AST 84 H (17-59) U/L Total Protein 4.9 L (6.3-8.2) g/dL Albumin 2.0 L (3.5-5.0) g/dL 08/31/21 Range/Units 06:05 WBC (3.8-10.6) k/uL RBC (4.30-5.90) m/uL Hgb (13.0-17.5) gm/dL Hct (39.0-53.0) % MCV (80.0-100.0) fL MCHC (31.0-37.0) g/dL RDW (11.5-15.5) % Neutrophils # (Manual) (1.3-7.7) k/uL Lymphocytes # (Manual) (1.0-4.8) k/uL Monocytes # (Manual) (0-1.0) k/uL Metamyelocytes # (Man) (0) k/uL Myelocytes # (Manual) (0) k/uL Nucleated RBCs (0-0) /100 WBC ABG pO2 205 H (83-108) mmHg ABG O2 Saturation 99.9 H (94-97) % Chloride (98-107) mmol/L BUN (9-20) mg/dL Creatinine (0.66-1.25) mg/dL Glucose (74-99) mg/dL Calcium (8.4-10.2) mg/dL AST (17-59) U/L Total Protein (6.3-8.2) g/dL Albumin (3.5-5.0) g/dL Assessment and Plan (1) Bacteremia Current Visit: Yes Status: Acute Code(s): R78.81 - BACTEREMIA SNOMED Code(s): 4063339 Plan: 1-Patient with polymicrobial bacteremia concern for right femoral central line which has been discontinued, , catheter tip cultures finalized his Proteus, blood culture positive for enterococcus Klebsiella and Proteus, groin culture with Proteus, patient repeat blood culture were negative on 08/17/2021, patient is currently covered with daptomycin and Zosyn 2-patient with perforated viscus concerning for secondary peritonitis Rocephin discontinued Zosyn has been added and the clinical course will monitor closely
[2021-09-01] MEDS: AMIODARONE 450 MG in DEXTROSE 5% IN WATER 250 ML IV SCH ×4 (00:36→15:40)
[2021-09-01] MEDS: NOREPINEPHRINE 8 MG in SODIUM CHLORIDE 0.9% 250 ML IV SCH ×2 (00:36→11:26)
--- NOTE | 2021-09-01 00:51 | P.PN ---
Subjective Progress Note Date: 09/01/21 CHIEF COMPLAINT: Abdominal pain HISTORY OF PRESENT ILLNESS: The patient is a 71-year-old male who during hospitalization developed abdominal pain. Diagnostic studies were consistent with pneumoperitoneum. He has been intubated and sedated in the intensive care unit. Patient has been stabilized where Levophed has improved down to 0.08 mcg/h/kg improved from 0. 210 g per hour per kilogram earlier this morning. In addition, pO2 has moderately improved with oxygen requirement fell from 75% to 50% FiO2. He has been stable during the night as he is pending surgical intervention. He has been seen by multiple consultants for optimization for surgery. REVIEW OF ORGAN SYSTEMS: No fevers or chills. No acute neurological event. PHYSICAL EXAM: VITALS: Reviewed CONSTITUTIONAL: Well developed and in no acute distress. EYES: Conjuctivae without sclera icterus. HEAD, EARS, NOSE, THROAT: Moist buccal mucosa. Head is atraumatic, normocephalic. Hears conversational speech. No nasal drainage. RESPIRATORY: Mechanical ventilation. CARDIOVASCULAR: 2+ radial pulses. ABDOMEN: Obese. Distended. MUSCULOSKELETAL: No clubbing. Presence of edema of the lower extremities. Cyanosis present along the peritoneal. NEUROLOGIC: No focal or lateralizing signs PSYCH: Sedated CLINCAL LABS: Reviewed. ABG with pO2 increased from 56 to over 200. Troponins elevated. ASSESSMENT: 1. Abdominal pain with pneumoperitoneum 2. Acute on chronic due to his kidney disease, stage III due to hypertensive heart disease 3. Ischemic cardiomyopathy with congestive heart failure and diastolic dysfunction 4. Chronic obstructive pulmonary disease with obstructive sleep apnea 5. Morbid obesity excess calories, BMI 38.5 6. Recent history of gastrointestinal bleed due to chronic anticoagulation PLAN: 1. Patient has been optimized for surgery with moderate improvement from prior assessment from the morning to the afternoon. 2. Overall, patient high surgical risk with multiple comorbidities including recent elevated troponins, acute on chronic kidney disease, ischemic cardiomyopathy, obstructive sleep apnea, morbid obesity. Objective - Vital Signs Vital signs: Vital Signs Temp 97.7 F 09/01/21 00:00 Pulse 99 09/01/21 00:30 Resp 22 09/01/21 00:30 BP 102/80 09/01/21 00:30 Pulse Ox 100 09/01/21 00:30 Intake & Output 08/31/21 08/31/21 09/01/21 06:59 18:59 06:59 Intake Total 3266.000 2466.000 1383.396 Output Total 121 140 90 Balance 3145.000 2326.000 1293.396 Weight 128.9 kg 128.9 kg Intake: IV 2650 1650 900 Sodium Chloride 0.9% 1, 1650 1650 900 000 ml @ 150 mls/hr IV . Q6H40M [facility] Rx#:[id number] Sodium Chloride 0.9% 1, 1000 000 ml @ 999 mls/hr IV . Q1H1M [facility] Rx#:[id number] Intake, IV Titration 616.000 816.000 483.396 Amount Amiodarone 450 mg In 239.727 Dextrose 5% in Water 250 ml @ 0.5 MG/MIN 16.667 mls/hr IV .Q15H [facility] Rx#: [id number] DAPTOmycin 750 mg In 50 Sodium Chloride 0.9% 50 ml @ 100 mls/hr IVPB Q48H [facility] Rx#:[id number] Norepinephrine 8 mg In 516.000 516.000 Sodium Chloride 0.9% 250 ml @ 0.05 MCG/KG/MIN 12. 529 mls/hr IV .[id number] [facility] Rx#:[id number] Norepinephrine 8 mg In 143.669 Sodium Chloride 0.9% 250 ml @ 0.08 MCG/KG/MIN 19. 954 mls/hr IV .[id number] [facility] Rx#:[id number] cefTRIAXone 2 gm In 50 Sodium Chloride 0.9% 50 ml @ 100 mls/hr IVPB Q24HR [facility] Rx#:[id number] propofoL 1,000 mg In 100.000 200 100 Empty Bag 1 bag @ 5 MCG/ KG/MIN 3.885 mls/hr IV . Q24H [facility] Rx#:[id number] Output: Urine 121 140 90 Other: Voiding Method Indwelling Catheter Indwelling Catheter Indwelling Catheter ABP, PAP, CO, CI - Last Documented Arterial Blood Pressure 96/53 - Labs CBC & Chem 7: 08/31/21 05:32 08/31/21 05:32 Labs: Abnormal Lab Results - Last 24 Hours (Table) 08/31/21 08/31/21 08/31/21 Range/Units 05:32 05:32 06:05 WBC 12.1 H (3.8-10.6) k/uL RBC 2.66 L (4.30-5.90) m/uL Hgb 7.8 L (13.0-17.5) gm/dL Hct 26.7 L (39.0-53.0) % MCV 100.4 H (80.0-100.0) fL MCHC 29.1 L (31.0-37.0) g/dL RDW 17.6 H (11.5-15.5) % Neutrophils # (Manual) 10.00 H (1.3-7.7) k/uL Lymphocytes # (Manual) 0.85 L (1.0-4.8) k/uL Monocytes # (Manual) 1.09 H (0-1.0) k/uL Metamyelocytes # (Man) 0.12 H (0) k/uL Nucleated RBCs 5 H (0-0) /100 WBC ABG pO2 205 H (83-108) mmHg ABG O2 Saturation 99.9 H (94-97) % Chloride 112 H (98-107) mmol/L BUN 55 H (9-20) mg/dL Creatinine 3.01 H (0.66-1.25) mg/dL Glucose 126 H (74-99) mg/dL Calcium 7.4 L (8.4-10.2) mg/dL AST 84 H (17-59) U/L Total Protein 4.9 L (6.3-8.2) g/dL Albumin 2.0 L (3.5-5.0) g/dL Assessment and Plan (1) Morbid (severe) obesity due to excess calories Current Visit: Yes Status: Acute Code(s): E66.01 - MORBID (SEVERE) OBESITY DUE TO EXCESS CALORIES SNOMED Code(s): 024344906 (2) BMI 35.0-35.9,adult Current Visit: Yes Status: Acute Code(s): Z68.35 - BODY MASS INDEX [BMI] 35.0-35.9, ADULT SNOMED Code(s): 183921201 (3) Pacemaker complications Current Visit: Yes Status: Acute Code(s): T82.9XXA - UNSP COMP OF CARDIAC AND VASCULAR PROSTH DEV/GRFT, INIT SNOMED Code(s): 938227731 (4) Atrial fibrillation Current Visit: Yes Status: Acute Code(s): I48.91 - UNSPECIFIED ATRIAL FIBRILLATION SNOMED Code(s): 28511334 (5) GI bleed Current Visit: Yes Status: Acute Code(s): K92.2 - GASTROINTESTINAL HEMORRHAGE, UNSPECIFIED SNOMED Code(s): 93110306 (6) Hematochezia Current Visit: Yes Status: Acute Code(s): K92.1 - MELENA SNOMED Code(s): 791815230 (7) Hypotension Current Visit: Yes Status: Acute Code(s): I95.9 - HYPOTENSION, UNSPECIFIED SNOMED Code(s): 23084446 (8) Melena Current Visit: Yes Status: Acute Code(s): K92.1 - MELENA SNOMED Code(s): 1360775 (9) Rapid atrial fibrillation Current Visit: No Status: Acute Code(s): I48.91 - UNSPECIFIED ATRIAL FIBRILLATION SNOMED Code(s): 603300826 (10) Hemorrhage of sigmoid colon due to diverticulosis Current Visit: Yes Status: Acute Code(s): K57.31 - DVRTCLOS OF LG INT W/O PERFORATION OR ABSCESS W BLEEDING SNOMED Code(s): 1030148909683927 (11) Small intestinal hemorrhage Current Visit: Yes Status: Acute Code(s): K92.2 - GASTROINTESTINAL HEMORRHA GE, UNSPECIFIED SNOMED Code(s): 72658316
[2021-09-01] MEDS ORDERED: VECURONIUM 10 MG VIAL IV ONE (01:00)
[2021-09-01 01:26] LABS: ABG Base Excess -10.6 mmol/L; ABG HCO3 17 mmol/L (21-25); ABG Oxygen Saturation 74.7 % (94-97); ABG PCO2 44 mmHg (35-45); ABG TCO2 19 mmol/L (19-24); Allen Test Performed? Yes
[2021-09-01 01:38] LABS: ABG PO2 51 mmHg (83-108)
--- NOTE | 2021-09-01 02:57 | P.OP ---
Date of Procedure: 09/01/21 Description of Procedure: PREOPERATIVE DIAGNOSES: 1. Pneumoperitoneum due to perforated viscus 2. Ischemic cardiomyopathy with congestive heart failure 3. Atrial fibrillation with rapid ventricular response 4. Pacemaker in situ 5. Morbid obesity due to excess calories, BMI 38.7 6. Iron deficiency anemia 7. Moderate to severe obstructive sleep apnea 8. Hypertensive heart disease 9. Stage III chronic kidney disease due to hypertensive heart disease 10. Chronic anticoagulation 11. Peripheral vascular occlusive disease POSTOP DIAGNOSES: 1. Pneumoperitoneum due to perforated viscus 2. Ischemic cardiomyopathy with congestive heart failure 3. Atrial fibrillation with rapid ventricular response 4. Pacemaker in situ 5. Morbid obesity due to excess calories, BMI 38.7 6. Iron deficiency anemia 7. Moderate to severe obstructive sleep apnea 8. Hypertensive heart disease 9. Stage III chronic kidney disease due to hypertensive heart disease 10. Chronic anticoagulation 11. Peripheral vascular occlusive disease PROCEDURES PERFORMED: 1. Exploratory laparotomy ABORTED upon induction of general anesthesia SURGEON: Dr. Theresa Mccullough. ANESTHESIA:General endotracheal intubation ESTIMATED BLOOD LOSS: 0 mL. SPECIMENS: None COMPLICATIONS: None. CONDITION: Unstable INDICATIONS: The patient is a 71-year-old gentleman who was previously taken to the operating room 24 hours ago for pneumoperitoneum and exploratory laparotomy. Upon prior attempt in the operating room, patient became hemodynamically unstable during induction of anesthesia and taken to the intensive care unit for stabilization. Patient was being taken back to the operating room for exploratory laparotomy after optimization. Surgical consent for exploratory laparotomy was previously obtained from janett Schaefer. DESCRIPTION: The patient is transferred from the intensive care unit to the operating room previously intubated and on vasopressors. Patient was transferred to the operating room bed with subsequent immediate drop of blood pressure from 110s to 70s systolic. Levophed was increased from 0.08 mcg/kg to over 20+ mcg/kg. Patient was already in atrial fibrillation with heart rates elevating from 110s to 130s to over 140s. He was on amiodarone drip. Attempted general induction with muscle relaxers was done per anesthesia with increased instability of patient's hemodynamic profile. Arterial blood gases were obtained demonstrating patient was acidotic with pH 7.2. Oxygen saturation was in the low 70s. Ampules of bicarb was given per anesthesia. Central venous pressure were obtained with additional fluid boluses to increase his blood pressure. Despite attempts, patient continued to be unstable for induction. Anesthesia team worked diligently to stabilize patient. In the operating room, I personally contacted the patient's son Silvano with conference call with the patient's brother Nabor. Events reviewed including patient's intolerance to general induction of anesthesia and inability to proceed with surgery despite all attempts at stabilization meanwhile being performed. Patient cannot tolerate propofol or fentanyl without further risk of cardiac depressant and hypotension despite fluid resuscitation and maximal vasopressors. Family made aware that surgery will likely be deleterious with hastened mortality despite all attempts to proceed. Alternatives include comfort care with continued antibiotics discussed and reviewed. Patient's son Silvano and brother Nabor placed on conference call and speaker phone with surgical team as witnessed for shared decision-making to proceed with comfort care. Patient's family made aware that prognosis is poor with or without surgery. Due to patient's pre-existing multiple comorbidities of protracted 3 week hospitalization with gastrointestinal bleeding, progressive acute on chronic kidney failure, respiratory failure, atrial fibrillation with rapid ventricular response, and mental status changes with acute life-threatening event of perforated viscus, patient is best suited for comfort care. Patient was transferred from the operating room table back into intensive care unit intubated and sedated and on pressors. Discussion with his nurse including of events listed above described and reviewed with family decision for comfort care measures. Patient remains FULL CODE until additional family discussion.
[2021-09-01] MEDS: SODIUM CHLORIDE 0.9% 1,000 ML IV SCH ×2 (05:41→15:40)
[2021-09-01 05:53] LABS: Anisocytosis Slight; HCT 25.1 % (39.0-53.0); HGB 7.4 gm/dL (13.0-17.5); Hypochromasia Marked; MCH 29.7 pg (25.0-35.0); MCHC 29.6 g/dL (31.0-37.0); MCV 100.6 fL (80.0-100.0); Macrocytosis Slight; Mean Platelet Volume 9.4; Platelet Count 225 k/uL (150-450); Poikilocytosis Moderate; RDW 17.1 % (11.5-15.5); WBC 13.2 k/uL (3.8-10.6)
[2021-09-01 06:09] LABS: Calcium 6.9 mg/dL (8.4-10.2); Potassium 3.7 mmol/L (3.5-5.1)
[2021-09-01 06:33] LABS: ABG Base Excess -3.8 mmol/L; ABG HCO3 21 mmol/L (21-25); ABG Oxygen Saturation 99.8 % (94-97); ABG PCO2 37 mmHg (35-45); ABG PH 7.37 (7.35-7.45); ABG PO2 213 mmHg (83-108); ABG TCO2 23 mmol/L (19-24); Allen Test Performed? Yes
[2021-09-01 06:36] LABS: Band Neutrophils % 4 %; Eosinophils # (M) 0.13 k/uL (0-0.7); Lymphocytes # (M) 0.26 k/uL (1.0-4.8); Metamyelocytes % 3 %; Monocytes # (M) 1.06 k/uL (0-1.0); Myelocytes # (M) 0.26 k/uL (0); Myelocytes % 2 %; Neutrophils % (M) 82 %; Nucleated Red Blood Cells 0 /100 WBC (0-0); Total Cells Counted 200
[2021-09-01 06:37] LABS: Polychromasia Present
[2021-09-01] MEDS: MIDODRINE 5 MG TAB PO SCH (06:37)
[2021-09-01] MEDS: OXYMETAZOLINE 0.05% NASL SPRAY 1 SPRAY BOTTLE NASAL SCH ×3 (06:37→15:39)
--- NOTE | 2021-09-01 07:14 | XR ---
EXAMINATION TYPE: XR chest 1V portable DATE OF EXAM: 09/01/2021 COMPARISON: 08/31/2021 HISTORY: SOB, Follow Up FINDINGS: Indwelling tubes and catheters are unchanged. No change in bibasilar opacities. Stable appearance of the cardio-mediastinal structures at this time. Pleural effusion unchanged. IMPRESSION: 1. Stable portable chest. Clinical correlation and follow up until resolution is recommended.
[2021-09-01] MEDS ORDERED: FUROSEMIDE 10 MG/ML 10 ML VIAL IV STA (08:22)
--- NOTE | 2021-09-01 09:40 | P.PN ---
Subjective Progress Note Date: 09/01/21 Principal diagnosis: GI bleed This is a pleasant 71-year-old male patient who has a history of atrial fibrillation anticoagulated with Eliquis, recent biventricular pacemaker inse rtion on 07/13/2021 and subsequent evacuation of hematoma on 07/24/2021. He also has a history of obstructive sleep apnea maintained on BiPAP, chronic kidney disease stage III, nephrolithiasis, hyperlipidemia, hypertension, coronary artery disease with previous stent placement, osteoarthritis with previous joint replacements, obesity. Nonsmoker. He presented to the emergency room last evening with a three-week history of increasing bloody bowel movements. Initially just a small amount of blood noted in and it progressed and yesterday he had multiple large bloody bowel movements. He also had some lightheadedness. No abdominal discomfort. No shortness of breath. No chest pain. He is seen today in consultation in the emergency department. He is awake and alert in no acute distress. He is maintaining O2 saturations in the 90s on 2 L/m per nasal cannula. He has 0.9 normal saline at KVO. White count 8.0. Hemoglobin 10.3. Platelets 56,000. INR 1.1. Fibrinogen 358. Pro time 1 1.4. Sodium 140. Potassium 4.1. Bicarb 27. BUN 65. Creatinine 2.22. GFR 28. Troponin 0.035. Thakur virus by PCR not detected. He has received 1 unit of fresh frozen plasma. 2 units of packed red blood cells on hold. This x-ray reveals mild atelectasis in the right lung base without change compared to previous on 07/17/2021. No congestive heart failure. EKG reveals atrial fibrillation with controlled ventricular response. The patient is seen today 08/31/2021 in follow-up in the intensive care unit. As the patient was not in the ICU during his stay we had not been following him since the initial consultation. Yesterday however the patient developed significant abdominal discomfort and a computed tomography scan of the abdomen revealed a moderate to large pneumoperitoneum without obvious etiology found. Findings are concerning for perforated viscus. No bowel obstruction. Small pelvic free fluid. Trace right pleural effusion and mild bibasilar opacities. He was transferred to the intensive care unit for altered mental status and hypotension. Based on these findings the patient was to be taken to the operating room by Dr. Somers however prior to the surgery he developed significant hypotension upon induction of anesthesia. The procedure was aborted and not performed. He remained intubated on mechanical ventilator. Current settings are assist-control mode at a rate of 22, tidal volume 550, FiO2 70% and a PEEP of 10. Morning blood gases revealed a PaO2 of 205, pCO2 36, PH7.40. Chest x-ray just so some atelectatic changes in the bases. Good placement of the Endo and oral gastric tubes. He is currently sedated on propofol at 30 mcg/kg/m. He has normal saline running at 150 MLS per hour. He is requiring norepinephrine currently at 0.18 mcg/kg/m which is approximately 23 mcg/m. He remains in atrial fibrillation with occasional PVCs. He has a left internal jugular triple-lumen catheter in place. Right radial arterial line in place. He has Edis wraps in the bilateral lower extremities. His toes are dusky and somewhat cyanotic more so on the right. He has a right upper extremity midline in place. He has received 2 units of packed red blood cells this admission. 2 units of fresh frozen plasma. A PICC line catheter tip from 08/16/2021 was positive for Proteus mirabilis. A groin wound was positive for Proteus mirabilis. Previous blood cultures were positive for Proteus mirabilis, enterococcus faecalis, Klebsiella oxytoca. Follow-up blood cultures are revealing no growth. White count 12.1. Hemoglobin 7.8. Platelets 296. Sodium 143. Potassium 3.9. Chloride 112. Bicarb 22. BUN 55. Creatinine 3.01. Glucose 126. Troponin 0.138. Cortisol level and TSH levels pending. He remains on antibiotics in the form of ceftriaxone. The patient is seen today 09/01/2021 in follow-up in the intensive care unit. He remains intubated on mechanical ventilator. Current settings assist-control mode at her respiratory rate is 22, tidal volume 550, FiO2 100% and a PEEP of 10. Morning blood gases reveal a P O2 of 213, pCO2 37, pH 7.37. He is currently on amiodarone drip at 0.5 mg/m. Normal saline at 150 MLS per hour. Norepinephrine at 12 mcg/m. Propofol at 10 mcg/kg per minute. He was taken back to the operating room early this morning due to his ongoing pneumoperitoneum due to perforated viscus however again the exploratory laparotomy was aborted due to significant hypotension and unstable vital signs upon induction of general anesthesia. The surgeon at that time had spoken to the patient's family and was considering comfort care. They're still deciding. Chest x-ray remains stable. Minimal pleural effusions. Basilar atelectasis. He is status post 2 units of packed red blood cells and 2 units of fresh frozen plasma this admission. Initial blood cultures revealed Klebsiella oxytoca, enterococcus faecalis, Proteus mirabilis, groin wound was positive for Proteus mirabilis, PICC line catheter tip was positive for Proteus Wiley pelvis. Follow-up blood cultures from 08/17/2021 and 08/18/2021 are revealing no growth thus far. White count 13.2. Hemoglobin 7.4. Platelets 225. Sodium 145. Potassium 3.7. Bicarb 21. BUN 59. Creatinine 3.23. Serum cortisol 37. TSH 0.84. Calcium 6.9. He remains on antibiotics in the form of Zosyn and daptomycin. Continued on bronchodilators. Objective - Vital Signs Vital signs: Vital Signs Temp 97.4 F L 09/01/21 04:00 Pulse 118 H 09/01/21 07:00 Resp 21 09/01/21 07:00 BP 118/79 09/01/21 07:00 Pulse Ox 89 L 09/01/21 06:00 Intake & Output 08/31/21 09/01/21 09/01/21 18:59 06:59 18:59 Intake Total 2466.000 2335.006 150 Output Total 140 155 10 Balance 2326.000 2180.006 140 Weight 128.9 kg 133 kg Intake: IV 1650 1650 150 Sodium Chloride 0.9% 1, 1650 1650 150 000 ml @ 150 mls/hr IV . Q6H40M [facility] Rx#:[id number] Intake, IV Titration 816.000 685.006 Amount Amiodarone 450 mg In 239.727 Dextrose 5% in Water 250 ml @ 0.5 MG/MIN 16.667 mls/hr IV .Q15H [facility] Rx#: [id number] DAPTOmycin 750 mg In 50 Sodium Chloride 0.9% 50 ml @ 100 mls/hr IVPB Q48H [facility] Rx#:[id number] Norepinephrine 8 mg In 516.000 Sodium Chloride 0.9% 250 ml @ 0.05 MCG/KG/MIN 12. 529 mls/hr IV .[id number] [facility] Rx#:[id number] Norepinephrine 8 mg In 287.003 Sodium Chloride 0.9% 250 ml @ 0.08 MCG/KG/MIN 19. 954 mls/hr IV .[id number] [facility] Rx#:[id number] cefTRIAXone 2 gm In 50 Sodium Chloride 0.9% 50 ml @ 100 mls/hr IVPB Q24HR [facility] Rx#:[id number] propofoL 1,000 mg In 200 158.276 Empty Bag 1 bag @ 5 MCG/ KG/MIN 3.885 mls/hr IV . Q24H [facility] Rx#:[id number] Output: Urine 140 155 10 Other: Voiding Method Indwelling Catheter Indwelling Catheter ABP, PAP, CO, CI - Last Documented Arterial Blood Pressure 112/63 - Exam GENERAL EXAM: Intubated, sedated obese 71-year-old male patient, comfortable in no apparent distress. HEAD: Normocephalic. EYES: Sluggish reaction of pupils, equal size. NOSE: Clear with pink turbinates. THROAT: Oral endotracheal and gastric tube secured in place. No erythema or exudates. NECK: No masses, no JVD. CHEST: No chest wall deformity. LUNGS: Equal air entry with faint crackles in the posterior bases. CVS: S1 and S2 normal with no audible murmur, regular rhythm. ABDOMEN: Distended, soft. Hypoactive bowel sounds. SPINE: No scoliosis or deformity SKIN: No rashes CENTRAL NERVOUS SYSTEM: No focal deficits, tone is normal in all 4 extremities. EXTREMITIES: Edis wraps to the bilateral lower extremities. Cyanosis noted on the toes more so on the right foot. Peripheral pulses are intact. - Labs CBC & Chem 7: 09/01/21 05:30 09/01/21 05:30 Labs: Abnormal Lab Results - Last 24 Hours (Table) 09/01/21 09/01/21 09/01/21 Range/Units 01:23 05:30 05:30 WBC 13.2 H (3.8-10.6) k/uL RBC 2.50 L (4.30-5.90) m/uL Hgb 7.4 L (13.0-17.5) gm/dL Hct 25.1 L (39.0-53.0) % MCV 100.6 H (80.0-100.0) fL MCHC 29.6 L (31.0-37.0) g/dL RDW 17.1 H (11.5-15.5) % Neutrophils # (Manual) 11.30 H (1.3-7.7) k/uL Lymphocytes # (Manual) 0.26 L (1.0-4.8) k/uL Monocytes # (Manual) 1.06 H (0-1.0) k/uL Metamyelocytes # (Man) 0.40 H (0) k/uL Myelocytes # (Manual) 0.26 H (0) k/uL ABG pH 7.20 L (7.35-7.45) ABG pO2 51 L* (83-108) mmHg ABG HCO3 17 L (21-25) mmol/L ABG O2 Saturation 74.7 L (94-97) % Chloride 115 H (98-107) mmol/L Carbon Dioxide 21 L (22-30) mmol/L BUN 59 H (9-20) mg/dL Creatinine 3.23 H (0.66-1.25) mg/dL Glucose 129 H (74-99) mg/dL Calcium 6.9 L (8.4-10.2) mg/dL 09/01/21 Range/Units 06:30 WBC (3.8-10.6) k/uL RBC (4.30-5.90) m/uL Hgb (13.0-17.5) gm/dL Hct (39.0-53.0) % MCV (80.0-100.0) fL MCHC (31.0-37.0) g/dL RDW (11.5-15.5) % Neutrophils # (Manual) (1.3-7.7) k/uL Lymphocytes # (Manual) (1.0-4.8) k/uL Monocytes # (Manual) (0-1.0) k/uL Metamyelocytes # (Man) (0) k/uL Myelocytes # (Manual) (0) k/uL ABG pH (7.35-7.45) ABG pO2 213 H (83-108) mmHg ABG HCO3 (21-25) mmol/L ABG O2 Saturation 99.8 H (94-97) % Chloride (98-107) mmol/L Carbon Dioxide (22-30) mmol/L BUN (9-20) mg/dL Creatinine (0.66-1.25) mg/dL Glucose (74-99) mg/dL Calcium (8.4-10.2) mg/dL Assessment and Plan Assessment: 1 Acute hypoxemic respiratory failure acquiring intubation mechanical ventilatory support on 08/30/2021 secondary to acute hypotension the patient found to have a moderate to large pneumoperitoneum without obvious etiology seen. Concerns for perforated viscus. Too critical for surgery following anesthesia induction on 08/30/2021 and again early a.m. on 09/01/2021. Remains on pressors. 2 Sepsis with septic shock secondary to Klebsiella oxytoca, Enterococcus faecalis, Proteus mirabilis. Groin wound was present for Proteus mirabilis. PICC line catheter tip was positive for Proteus mirabilis. Currently on Zosyn and daptomycin. 3 GI bleed with drop in hemoglobin from 11.8 to 9.4. Currently 7.4. He received 2 units of packed red blood cells this admission. Received 2 unit fresh frozen plasma. 4 Thrombocytopenia, recovered 5 Atrial fibrillation, anticoagulated with Eliquis in the outpatient setting, currently on hold 6 BiV pacemaker implant on 07/13/2021, required additional wound closure due to oozing of blood on 07/24/2021 7 History of coronary disease with previous stent placement 8 Troponin leak 9 Hypertension 10 Obstructive sleep apnea utilizing BiPAP 11 Osteoarthritis with previous joint replacements 12 Obesity 13 Hyperlipidemia Plan: The patient was seen and evaluated Chest x-ray, ABGs and labs reviewed Remains on pressors Remains on sedation Continue Zosyn and daptomycin for now Decrease FiO2 to 60% and continue other vent settings Second attempt at surgery was aborted due to hypotension Overall condition remains critical Family is considering comfort care We'll continue full supportive care for now We will continue to follow and make further recommendations based on his clinical status I have personally seen and examined the patient, performed the documentation and the assessment and plan as written. Number of minutes spent on the visit: 15.
[2021-09-01] MEDS: CHLORHEXIDINE GLUCONATE 15 ML CUP MUCOUS MEM SCH ×2 (09:42→20:45)
[2021-09-01] MEDS: PANTOPRAZOLE 40 MG/10 ML VIAL IV SCH (09:42)
--- NOTE | 2021-09-01 09:56 | P.PN ---
Subjective Progress Note Date: 09/01/21 This is a pleasant 71-year-old male past medical history significant for coronary artery disease status post stent placement to the mid and proximal circumflex, persistent atrial fibrillation on long-term anticoagulation, hypertension, dyslipidemia, chronic kidney disease, ventricular arrhythmias (PVCs and NSVT), and obstructive sleep apnea. He follows in the office with Dr. Fields, underwent biventricular pacemaker implantation 07/13/2021 for management of persistent A. fib with RVR. Patient is seen today in the ICU and remains mechanically ventilated. Patient was taken to the OR this morning at 0100 for exploratory laparotomy for pneumoperitoneum due to perforated viscus. Procedure was aborted due to patient becoming very hypotensive during anesthesia administration. Patient's blood cultures have come back positive. Patient remains on levo for hypotension. Patient's has low urine output, per nephrology will receive a one-time dose of IV Lasix 60 mg. Patient remains in atrial fibrillation with controlled ventricle rate. He will remain on IV amiodarone. Continue to hold anticoagulation due to bleeding risk. Patient's echocardiogram shows decreased LV with an ejection fraction of 40-45%. Patient's chest x-ray shows no change from previous no change in bibasilar opacities and pleural effusion. Hemoglobin is 7.4, WBC 13.2, creatinine 3.23. Family has been notified and will have a meeting today with the surgeon about plan of care versus possible comfort care. Pending family's decision, patient may require dialysis. Objective - Vital Signs Vital signs: Vital Signs Temp 97.4 F L 09/01/21 04:00 Pulse 118 H 09/01/21 07:00 Resp 21 09/01/21 07:00 BP 118/79 09/01/21 07:00 Pulse Ox 89 L 09/01/21 06:00 Intake & Output 08/31/21 09/01/21 09/01/21 18:59 06:59 18:59 Intake Total 2466.000 2335.006 150 Output Total 140 155 10 Balance 2326.000 2180.006 140 Weight 128.9 kg 133 kg Intake: IV 1650 1650 150 Sodium Chloride 0.9% 1, 1650 1650 150 000 ml @ 150 mls/hr IV . Q6H40M [facility] Rx#:[id number] Intake, IV Titration 816.000 685.006 Amount Amiodarone 450 mg In 239.727 Dextrose 5% in Water 250 ml @ 0.5 MG/MIN 16.667 mls/hr IV .Q15H [facility] Rx#: [id number] DAPTOmycin 750 mg In 50 Sodium Chloride 0.9% 50 ml @ 100 mls/hr IVPB Q48H [facility] Rx#:[id number] Norepinephrine 8 mg In 516.000 Sodium Chloride 0.9% 250 ml @ 0.05 MCG/KG/MIN 12. 529 mls/hr IV .[id number] [facility] Rx#:[id number] Norepinephrine 8 mg In 287.003 Sodium Chloride 0.9% 250 ml @ 0.08 MCG/KG/MIN 19. 954 mls/hr IV .[id number] [facility] Rx#:[id number] cefTRIAXone 2 gm In 50 Sodium Chloride 0.9% 50 ml @ 100 mls/hr IVPB Q24HR [facility] Rx#:[id number] propofoL 1,000 mg In 200 158.276 Empty Bag 1 bag @ 5 MCG/ KG/MIN 3.885 mls/hr IV . Q24H [facility] Rx#:[id number] Output: Urine 140 155 10 Other: Voiding Method Indwelling Catheter Indwelling Catheter ABP, PAP, CO, CI - Last Documented Arterial Blood Pressure 112/63 - Exam PHYSICAL EXAM: VITAL SIGNS: Reviewed. GENERAL: Well-developed in no acute distress. HEENT: Head is normocephalic. Pupils are equal, round. Sclerae anicteric. Mucous membranes of the mouth are moist. NECK: Supple. No JVD or thyromegaly RESPIRATORY: Mechanically ventilated CARDIO: Regular rate and rhythm. S1 and S2 heard. No murmur or gallops. EXTREMITIES: Normal range of motion. No clubbing or cyanosis. Peripheral pulses intact. Negative for bilateral lower extremity edema NEURO: Sedated - Labs CBC & Chem 7: 09/01/21 05:30 09/01/21 05:30 Labs: Abnormal Lab Results - Last 24 Hours (Table) 09/01/21 09/01/21 09/01/21 Range/Units 01:23 05:30 05:30 WBC 13.2 H (3.8-10.6) k/uL RBC 2.50 L (4.30-5.90) m/uL Hgb 7.4 L (13.0-17.5) gm/dL Hct 25.1 L (39.0-53.0) % MCV 100.6 H (80.0-100.0) fL MCHC 29.6 L (31.0-37.0) g/dL RDW 17.1 H (11.5-15.5) % Neutrophils # (Manual) 11.30 H (1.3-7.7) k/uL Lymphocytes # (Manual) 0.26 L (1.0-4.8) k/uL Monocytes # (Manual) 1.06 H (0-1.0) k/uL Metamyelocytes # (Man) 0.40 H (0) k/uL Myelocytes # (Manual) 0.26 H (0) k/uL ABG pH 7.20 L (7.35-7.45) ABG pO2 51 L* (83-108) mmHg ABG HCO3 17 L (21-25) mmol/L ABG O2 Saturation 74.7 L (94-97) % Chloride 115 H (98-107) mmol/L Carbon Dioxide 21 L (22-30) mmol/L BUN 59 H (9-20) mg/dL Creatinine 3.23 H (0.66-1.25) mg/dL Glucose 129 H (74-99) mg/dL Calcium 6.9 L (8.4-10.2) mg/dL 09/01/21 Range/Units 06:30 WBC (3.8-10.6) k/uL RBC (4.30-5.90) m/uL Hgb (13.0-17.5) gm/dL Hct (39.0-53.0) % MCV (80.0-100.0) fL MCHC (31.0-37.0) g/dL RDW (11.5-15.5) % Neutrophils # (Manual) (1.3-7.7) k/uL Lymphocytes # (Manual) (1.0-4.8) k/uL Monocytes # (Manual) (0-1.0) k/uL Metamyelocytes # (Man) (0) k/uL Myelocytes # (Manual) (0) k/uL ABG pH (7.35-7.45) ABG pO2 213 H (83-108) mmHg ABG HCO3 (21-25) mmol/L ABG O2 Saturation 99.8 H (94-97) % Chloride (98-107) mmol/L Carbon Dioxide (22-30) mmol/L BUN (9-20) mg/dL Creatinine (0.66-1.25) mg/dL Glucose (74-99) mg/dL Calcium (8.4-10.2) mg/dL Assessment and Plan Assessment: Acute GI bleed Acute hypotension History of Persistent atrial fibrillation anticoagulation on hold due to GI bleed Chronic systolic heart failure Coronary artery disease status post angioplasty to the mid and proximal circumflex and history of hypertension Dyslipidemia Chronic kidney disease Plan: Continue IV amiodarone Continue to hold anticoagulation due to GI bleed Continue with other current cardiac medications Continue to tolerate pressors as tolerated Continue with telemetry monitoring Further recommendations based on clinical course The above impression and plan of care have been discussed and directed by the signing physician. Cristien Mcdonough, nurse practitioner, acting as scribe for signing physician.
--- NOTE | 2021-09-01 10:05 | P.PN ---
Subjective Progress Note Date: 09/01/21 CHIEF COMPLAINT: Abdominal pain HISTORY OF PRESENT ILLNESS: The patient is a 71-year-old male in the intensive care in it with recent history of pneumoperitoneum. Patient had attempted exploratory laparotomy this morning however recurring event of inability to tolerate general anesthesia. Patient became stable despite all measures of fluid resuscitation, pressors, maximum oxygen support. Discussion with patient's family reviewed including comfort measures as patient is unable to tolerate attempted surgery. Per discussion with nursing, patient's kidney function is worsening. REVIEW OF ORGAN SYSTEMS: No fevers or chills. Full mechanical ventilation. PHYSICAL EXAM: VITALS: Reviewed CONSTITUTIONAL: Well developed and in no acute distress. EYES: Conjuctivae without sclera icterus. HEAD, EARS, NOSE, THROAT: Moist buccal mucosa. Head is atraumatic, normocephalic. No nasal drainage. Orogastric tube present. RESPIRATORY: Mechanical ventilation for full ventilatory support. FiO2 100%. PEEP of 10. CARDIOVASCULAR: Atrial fibrillation with heart rate over 110s. ABDOMEN: Obese. Distended. Soft. MUSCULOSKELETAL: No cyanosis along bilateral toes. SKIN: Diffuse weeping along the distal extremities with diffuse ecchymosis of the upper extremities. NEUROLOGIC: Sedated PSYCH: Sedated CLINCAL LABS: Reviewed. WBC elevated at 12.1-13.2. Hemoglobin 7.8-7.4. ASSESSMENT: 1. Abdominal pain with pneumoperitoneum 2. Acute on chronic due to his kidney disease, stage III due to hypertensive heart disease 3. Ischemic cardiomyopathy with congestive heart failure and diastolic dysf unction 4. Chronic obstructive pulmonary disease with obstructive sleep apnea 5. Morbid obesity excess calories, BMI 38.5 6. Recent history of gastrointestinal bleed due to chronic anticoagulation PLAN: 1. Overall prognosis poor. Patient unable to tolerate general induction for surgery despite multiple attempts. Agree with comfort care measures. 2. At this time, continue conservative management. Objective - Vital Signs Vital signs: Vital Signs Temp 97.4 F L 09/01/21 04:00 Pulse 118 H 09/01/21 07:00 Resp 21 09/01/21 07:00 BP 118/79 09/01/21 07:00 Pulse Ox 89 L 09/01/21 06:00 Intake & Output 08/31/21 09/01/21 09/01/21 18:59 06:59 18:59 Intake Total 2466.000 2335.006 150 Output Total 140 155 10 Balance 2326.000 2180.006 140 Weight 128.9 kg 133 kg Intake: IV 1650 1650 150 Sodium Chloride 0.9% 1, 1650 1650 150 000 ml @ 150 mls/hr IV . Q6H40M [facility] Rx#:[id number] Intake, IV Titration 816.000 685.006 Amount Amiodarone 450 mg In 239.727 Dextrose 5% in Water 250 ml @ 0.5 MG/MIN 16.667 mls/hr IV .Q15H [facility] Rx#: [id number] DAPTOmycin 750 mg In 50 Sodium Chloride 0.9% 50 ml @ 100 mls/hr IVPB Q48H [facility] Rx#:[id number] Norepinephrine 8 mg In 516.000 Sodium Chloride 0.9% 250 ml @ 0.05 MCG/KG/MIN 12. 529 mls/hr IV .[id number] [facility] Rx#:[id number] Norepinephrine 8 mg In 287.003 Sodium Chloride 0.9% 250 ml @ 0.08 MCG/KG/MIN 19. 954 mls/hr IV .[id number] [facility] Rx#:[id number] cefTRIAXone 2 gm In 50 Sodium Chloride 0.9% 50 ml @ 100 mls/hr IVPB Q24HR [facility] Rx#:[id number] propofoL 1,000 mg In 200 158.276 Empty Bag 1 bag @ 5 MCG/ KG/MIN 3.885 mls/hr IV . Q24H [facility] Rx#:[id number] Output: Urine 140 155 10 Other: Voiding Method Indwelling Catheter Indwelling Catheter ABP, PAP, CO, CI - Last Documented Arterial Blood Pressure 112/63 - Labs CBC & Chem 7: 09/01/21 05:30 09/01/21 05:30 Labs: Abnormal Lab Results - Last 24 Hours (Table) 09/01/21 09/01/21 09/01/21 Range/Units 01:23 05:30 05:30 WBC 13.2 H (3.8-10.6) k/uL RBC 2.50 L (4.30-5.90) m/uL Hgb 7.4 L (13.0-17.5) gm/dL Hct 25.1 L (39.0-53.0) % MCV 100.6 H (80.0-100.0) fL MCHC 29.6 L (31.0-37.0) g/dL RDW 17.1 H (11.5-15.5) % Neutrophils # (Manual) 11.30 H (1.3-7.7) k/uL Lymphocytes # (Manual) 0.26 L (1.0-4.8) k/uL Monocytes # (Manual) 1.06 H (0-1.0) k/uL Metamyelocytes # (Man) 0.40 H (0) k/uL Myelocytes # (Manual) 0.26 H (0) k/uL ABG pH 7.20 L (7.35-7.45) ABG pO2 51 L* (83-108) mmHg ABG HCO3 17 L (21-25) mmol/L ABG O2 Saturation 74.7 L (94-97) % Chloride 115 H (98-107) mmol/L Carbon Dioxide 21 L (22-30) mmol/L BUN 59 H (9-20) mg/dL Creatinine 3.23 H (0.66-1.25) mg/dL Glucose 129 H (74-99) mg/dL Calcium 6.9 L (8.4-10.2) mg/dL 09/01/21 Range/Units 06:30 WBC (3.8-10.6) k/uL RBC (4.30-5.90) m/uL Hgb (13.0-17.5) gm/dL Hct (39.0-53.0) % MCV (80.0-100.0) fL MCHC (31.0-37.0) g/dL RDW (11.5-15.5) % Neutrophils # (Manual) (1.3-7.7) k/uL Lymphocytes # (Manual) (1.0-4.8) k/uL Monocytes # (Manual) (0-1.0) k/uL Metamyelocytes # (Man) (0) k/uL Myelocytes # (Manual) (0) k/uL ABG pH (7.35-7.45) ABG pO2 213 H (83-108) mmHg ABG HCO3 (21-25) mmol/L ABG O2 Saturation 99.8 H (94-97) % Chloride (98-107) mmol/L Carbon Dioxide (22-30) mmol/L BUN (9-20) mg/dL Creatinine (0.66-1.25) mg/dL Glucose (74-99) mg/dL Calcium (8.4-10.2) mg/dL Assessment and Plan (1) Pneumoperitoneum Current Visit: Yes Status: Acute Code(s): K66.8 - OTHER SPECIFIED DISORDERS OF PERITONEUM SNOMED Code(s): 86472230 (2) Morbid (severe) obesity due to excess calories Current Visit: Yes Status: Acute Code(s): E66.01 - MORBID (SEVERE) OBESITY DUE TO EXCESS CALORIES SNOMED Code(s): 789606983 (3) BMI 35.0-35.9,adult Current Visit: Yes Status: Acute Code(s): Z68.35 - BODY MASS INDEX [BMI] 35.0-35.9, ADULT SNOMED Code(s): 841579369 (4) Pacemaker complications Current Visit: Yes Status: Acute Code(s): T82.9XXA - UNSP COMP OF CARDIAC AND VASCULAR PROSTH DEV/GRFT, INIT SNOMED Code(s): 451240123 (5) Atrial fibrillation Current Visit: Yes Status: Acute Code(s): I48.91 - UNSPECIFIED ATRIAL FIBRILLATION SNOMED Code(s): 42913082 (6) GI bleed Current Visit: Yes Status: Acute Code(s): K92.2 - GASTROINTESTINAL HEMORRHAGE, UNSPECIFIED SNOMED Code(s): 13149502 (7) Hematochezia Current Visit: Yes Status: Acute Code(s): K92.1 - MELENA SNOMED Code(s): 626222022 (8) Hypotension Current Visit: Yes Status: Acute Code(s): I95.9 - HYPOTENSION, UNSPECIFIED SNOMED Code(s): 86200761 (9) Melena Current Visit: Yes Status: Acute Code(s): K92.1 - MELENA SNOMED Code(s): 3721364 (10) Rapid atrial fibrillation Current Visit: No Status: Acute Code(s): I48.91 - UNSPECIFIED ATRIAL FIBRILLATION SNOMED Code(s): 251866250 (11) Hemorrhage of sigmoid colon due to diverticulosis Current Visit: Yes Status: Acute Code(s): K57.31 - DVRTCLOS OF LG INT W/O PERFORATION OR ABSCESS W BLEEDING SNOMED Code(s): 0364914003068104 (12) Small intestinal hemorrhage Current Visit: Yes Status: Acute Code(s): K92.2 - GASTROINTESTINAL HEMORRHAGE, UNSPECIFIED SNOMED Code(s): 38985466
--- NOTE | 2021-09-01 10:32 | P.PN ---
Progress Note - Text Progress Note Date: 09/01/21 Patient's son Silvano including brother Nabor at bedside. Extended discussion of plan of care were reviewed. Two attempts to go to the operating room was performed with immediate hemodynamic instability following general induction regardless of prior stabilization. Additional attempts to the operating room is of minimal benefit as patient cannot tolerate induction. Risk of immediate mortality during surgery reviewed. Family reassured that all measures to prolong life are being done including patient wishes of all things being done as FULL CODE. As patient cannot tolerate induction with high risk of during or immediately after surgery likely to occur, conservative management advised. Options including conservative management reviewed. Perforation is likely due to diverticulitis as patient has history of moderate to severe sigmoid diverticulosis with recent upper and endoscopy during this hospitalization. Patient's nurse at bedside during the entirety of conversation. Conversation of 20-25 minutes performed with questions answered to the family. Family made aware that options for end-of-life care is available.
[2021-09-01 11:11] VITALS: BMI 39.7
--- NOTE | 2021-09-01 12:59 | P.PN ---
Subjective Patient is seen for follow-up for acute kidney injury on top of chronic kidney disease. He is currently being diuresed for volume overload. Patient has underlying cardiorenal syndrome. Serum creatinine staying at about 2.4-2.5 mg/dL. Serum creatinine increased to 2.8 yesterday. Blood pressure had been low and a chest x-ray was ordered. Patient was found to have pneumoperitoneum with free air in the abdomen and was taken to the OR. However after anesthesia patient crashed with hypotension and therefore the surgery was not performed Patient was taken back to or late last night and developed significant hypotension again with anesthesia and therefore the surgery was not performed. Urine output remains low Family has been contacted and options for hospice have been discussed as patient cannot have surgery. He remains on the vent, FiO2 is 60%. Patient is also maintained on levo fed currently at 0.09 mcg/kg. Objective - Vital Signs Vital signs: Vital Signs Temp 98.0 F 09/01/21 08:00 Pulse 109 H 09/01/21 10:30 Resp 22 09/01/21 10:30 BP 104/66 09/01/21 10:30 Pulse Ox 89 L 09/01/21 06:00 Intake & Output 08/31/21 09/01/21 09/01/21 18:59 06:59 18:59 Intake Total 2466.000 2335.006 707.834 Output Total 140 155 55 Balance 2326.000 2180.006 652.834 Weight 128.9 kg 133 kg 133 kg Intake: IV 1650 1650 600 Sodium Chloride 0.9% 1, 1650 1650 600 000 ml @ 150 mls/hr IV . Q6H40M [facility] Rx#:[id number] Intake, IV Titration 816.000 685.006 107.834 Amount Amiodarone 450 mg In 239.727 Dextrose 5% in Water 250 ml @ 0.5 MG/MIN 16.667 mls/hr IV .Q15H [facility] Rx#: [id number] DAPTOmycin 750 mg In 50 Sodium Chloride 0.9% 50 ml @ 100 mls/hr IVPB Q48H [facility] Rx#:[id number] Norepinephrine 8 mg In 516.000 Sodium Chloride 0.9% 250 ml @ 0.05 MCG/KG/MIN 12. 529 mls/hr IV .[id number] [facility] Rx#:[id number] Norepinephrine 8 mg In 287.003 107.834 Sodium Chloride 0.9% 250 ml @ 0.08 MCG/KG/MIN 19. 954 mls/hr IV .[id number] [facility] Rx#:[id number] cefTRIAXone 2 gm In 50 Sodium Chloride 0.9% 50 ml @ 100 mls/hr IVPB Q24HR [facility] Rx#:[id number] propofoL 1,000 mg In 200 158.276 Empty Bag 1 bag @ 5 MCG/ KG/MIN 3.885 mls/hr IV . Q24H [facility] Rx#:[id number] Output: Urine 140 155 55 Other: Voiding Method Indwelling Catheter Indwelling Catheter ABP, PAP, CO, CI - Last Documented Arterial Blood Pressure 115/59 - Exam Patient is sedated. He is on the vent. Maintained on levo fed Examination of the heart S1 and S2 Examination lungs bilateral breath sounds are heard Abdomen is soft nontender Exertion lower extremity shows chronic edema. And chronic skin changes. Both legs are wrapped - Labs CBC & Chem 7: 09/01/21 05:30 09/01/21 05:30 Labs: Abnormal Lab Results - Last 24 Hours (Table) 09/01/21 09/01/21 09/01/21 Range/Units 01:23 05:30 05:30 WBC 13.2 H (3.8-10.6) k/uL RBC 2.50 L (4.30-5.90) m/uL Hgb 7.4 L (13.0-17.5) gm/dL Hct 25.1 L (39.0-53.0) % MCV 100.6 H (80.0-100.0) fL MCHC 29.6 L (31.0-37.0) g/dL RDW 17.1 H (11.5-15.5) % Neutrophils # (Manual) 11.30 H (1.3-7.7) k/uL Lymphocytes # (Manual) 0.26 L (1.0-4.8) k/uL Monocytes # (Manual) 1.06 H (0-1.0) k/uL Metamyelocytes # (Man) 0.40 H (0) k/uL Myelocytes # (Manual) 0.26 H (0) k/uL ABG pH 7.20 L (7.35-7.45) ABG pO2 51 L* (83-108) mmHg ABG HCO3 17 L (21-25) mmol/L ABG O2 Saturation 74.7 L (94-97) % Chloride 115 H (98-107) mmol/L Carbon Dioxide 21 L (22-30) mmol/L BUN 59 H (9-20) mg/dL Creatinine 3.23 H (0.66-1.25) mg/dL Glucose 129 H (74-99) mg/dL Calcium 6.9 L (8.4-10.2) mg/dL 09/01/21 Range/Units 06:30 WBC (3.8-10.6) k/uL RBC (4.30-5.90) m/uL Hgb (13.0-17.5) gm/dL Hct (39.0-53.0) % MCV (80.0-100.0) fL MCHC (31.0-37.0) g/dL RDW (11.5-15.5) % Neutrophils # (Manual) (1.3-7.7) k/uL Lymphocytes # (Manual) (1.0-4.8) k/uL Monocytes # (Manual) (0-1.0) k/uL Metamyelocytes # (Man) (0) k/uL Myelocytes # (Manual) (0) k/uL ABG pH (7.35-7.45) ABG pO2 213 H (83-108) mmHg ABG HCO3 (21-25) mmol/L ABG O2 Saturation 99.8 H (94-97) % Chloride (98-107) mmol/L Carbon Dioxide (22-30) mmol/L BUN (9-20) mg/dL Creatinine (0.66-1.25) mg/dL Glucose (74-99) mg/dL Calcium (8.4-10.2) mg/dL Microbiology - Last 24 Hours (Table) 08/31/21 23:43 Sputum Culture - Preliminary Sputum Assessment and Plan Assessment: 1. Acute kidney injury associated with cardiorenal syndrome and underlying infection causing ATN. Currently oliguric due to worsening hypotension and intra-abdominal pathology with perforated viscus. Computed tomography scan showed atrophic right kidney with multiple cysts. Left kidney showed cyst without nephrosis. Trace proteinuria on UA Acute on chronic systolic CHF with EF 40-45% with moderate pulmonary hypertension 3. Volume overload was improving with diuresis. Hold Lasix for now 4. Bacteremia associated with possibly central line infection with blood cultures positive for staph Proteus enterococcus and Klebsiella maintained on IV antibiotics, being followed by ID 5. CK D stage III B baseline creatinine about 1.5 etiology nephrosclerosis 6. Acute GI bleed and epistaxis status post EGD and colonoscopy this admission status post DDAVP 7. Anemia, multifactorial associated with blood loss from GI bleed and epistaxis as well as component of anemia of chronic disease, maintained on Aranesp 8. Perforated viscus with free air in the abdomen taken to OR twice . Patient did not tolerate anesthesia and therefore no plans for surgery at this time. Plan: Overall prognosis is poor Patient will need renal replacement therapy in the next 24-48 hours as he continues to have poor urine output and is in positive fluid balance. IV Lasix 1
--- NOTE | 2021-09-01 15:03 | P.PN ---
Subjective Patient was examined at bedside today. Continues to be on mechanical ventilation. Case discussed with ID and RN present at bedside. Objective - Vital Signs Vital signs: Vital Signs Temp 98.3 F 09/01/21 12:00 Pulse 105 H 09/01/21 13:00 Resp 22 09/01/21 13:00 BP 102/74 09/01/21 12:30 Pulse Ox 100 09/01/21 13:00 Intake & Output 08/31/21 09/01/21 09/01/21 18:59 06:59 18:59 Intake Total 2466.000 2335.006 1349.558 Output Total 140 155 175 Balance 2326.000 2180.006 1174.558 Weight 128.9 kg 133 kg 133 kg Intake: IV 1650 1650 1200 Sodium Chloride 0.9% 1, 1650 1650 1200 000 ml @ 150 mls/hr IV . Q6H40M [facility] Rx#:[id number] Intake, IV Titration 816.000 685.006 149.558 Amount Amiodarone 450 mg In 239.727 Dextrose 5% in Water 250 ml @ 0.5 MG/MIN 16.667 mls/hr IV .Q15H [facility] Rx#: [id number] DAPTOmycin 750 mg In 50 Sodium Chloride 0.9% 50 ml @ 100 mls/hr IVPB Q48H [facility] Rx#:[id number] Norepinephrine 8 mg In 516.000 Sodium Chloride 0.9% 250 ml @ 0.05 MCG/KG/MIN 12. 529 mls/hr IV .[id number] [facility] Rx#:[id number] Norepinephrine 8 mg In 287.003 107.834 Sodium Chloride 0.9% 250 ml @ 0.08 MCG/KG/MIN 19. 954 mls/hr IV .[id number] [facility] Rx#:[id number] cefTRIAXone 2 gm In 50 Sodium Chloride 0.9% 50 ml @ 100 mls/hr IVPB Q24HR [facility] Rx#:[id number] propofoL 1,000 mg In 200 158.276 41.724 Empty Bag 1 bag @ 5 MCG/ KG/MIN 3.885 mls/hr IV . Q24H [facility] Rx#:[id number] Output: Urine 140 155 175 Other: Voiding Method Indwelling Catheter Indwelling Catheter Indwelling Catheter ABP, PAP, CO, CI - Last Documented Arterial Blood Pressure 110/59 - Exam Gen: Patient is currently intubated on mechanical ventilation. Resp: Bilateral air entry, slightly decreased breath sounds secondary body h abitus. CVS: Normal S1/S2 no murmurs heard. GI: Abdomen is slightly tender on palpation bilaterally. Positive bowel sounds. : no SPT, no CVAT, esquivel catheter not present MSK: +pitting edema, no clubbing Psych: Unable to be assessed patient sedated Extremities/back first and second toes noted right leg - Labs CBC & Chem 7: 09/01/21 05:30 09/01/21 05:30 Labs: Abnormal Lab Results - Last 24 Hours (Table) 09/01/21 09/01/21 09/01/21 Range/Units 01:23 05:30 05:30 WBC 13.2 H (3.8-10.6) k/uL RBC 2.50 L (4.30-5.90) m/uL Hgb 7.4 L (13.0-17.5) gm/dL Hct 25.1 L (39.0-53.0) % MCV 100.6 H (80.0-100.0) fL MCHC 29.6 L (31.0-37.0) g/dL RDW 17.1 H (11.5-15.5) % Neutrophils # (Manual) 11.30 H (1.3-7.7) k/uL Lymphocytes # (Manual) 0.26 L (1.0-4.8) k/uL Monocytes # (Manual) 1.06 H (0-1.0) k/uL Metamyelocytes # (Man) 0.40 H (0) k/uL Myelocytes # (Manual) 0.26 H (0) k/uL ABG pH 7.20 L (7.35-7.45) ABG pO2 51 L* (83-108) mmHg ABG HCO3 17 L (21-25) mmol/L ABG O2 Saturation 74.7 L (94-97) % Chloride 115 H (98-107) mmol/L Carbon Dioxide 21 L (22-30) mmol/L BUN 59 H (9-20) mg/dL Creatinine 3.23 H (0.66-1.25) mg/dL Glucose 129 H (74-99) mg/dL Calcium 6.9 L (8.4-10.2) mg/dL 09/01/21 Range/Units 06:30 WBC (3.8-10.6) k/uL RBC (4.30-5.90) m/uL Hgb (13.0-17.5) gm/dL Hct (39.0-53.0) % MCV (80.0-100.0) fL MCHC (31.0-37.0) g/dL RDW (11.5-15.5) % Neutrophils # (Manual) (1.3-7.7) k/uL Lymphocytes # (Manual) (1.0-4.8) k/uL Monocytes # (Manual) (0-1.0) k/uL Metamyelocytes # (Man) (0) k/uL Myelocytes # (Manual) (0) k/uL ABG pH (7.35-7.45) ABG pO2 213 H (83-108) mmHg ABG HCO3 (21-25) mmol/L ABG O2 Saturation 99.8 H (94-97) % Chloride (98-107) mmol/L Carbon Dioxide (22-30) mmol/L BUN (9-20) mg/dL Creatinine (0.66-1.25) mg/dL Glucose (74-99) mg/dL Calcium (8.4-10.2) mg/dL Microbiology - Last 24 Hours (Table) 08/31/21 23:43 Sputum Culture - Preliminary Sputum Assessment and Plan Assessment: Assessment: #1 pneumoperitoneum -new onset #1 acute gastrointestinal bleeding #2 epistaxis status post packing-resolved #3 left foot cellulitis/right femoral central line associated bloodstream infection #4 congestive heart failure with reduced ejection fraction #5 acute kidney injury on CK component of cardiorenal syndrome #6 paroxysmal atrial fibrillation status post pacemaker on a coagulation #7 essential hypertension #8 history of coronary disease status post stents 10 years ago #9 Constipation/abdominal discomfort #10 sigmoid diverticulosis/small bowel intestinal bleeding per colonoscopy #11 acute respiratory failure currently on MV Plan: -Admit to medicine for close monitoring -Aspiration/fall precaution/HOB 30 -Unable to perform exploratory laparoscopy. Unable to tolerate induction of anesthesia. -Prognosis very poor, recommend goals of care discussion with family. -Note by GI on 08/16/2021 suggested against present regulation due to high risk of rebleed with sigmoid diverticulosis and small bowel intestinal bleeding. -Will require colonoscopy 3-6 months for polypectomy -Repeat blood cultures negative -Continue with daptomycin and Rocephin needs antimicrobials until 08/31/2021. -DVT prophylaxis SCDs for now will need clearance to initiate pharmacologic DVT prophylaxis by GI.
--- NOTE | 2021-09-01 15:34 | P.PN ---
Subjective Progress Note Date: 09/01/21 Principal diagnosis: Bacteremia Patient is a 71-year-old male admitted to the hospital about a week ago for evaluation of bleeding per rectum and weakness the patient did have a right groin central line with the patient was noticed to have some purulent drainage which has been discontinued blood culture positive with multiple pathogen. The patient has pulled out his PICC line and followed by his midline, patient did have a CT of abdominal pelvis completed 08/30/2021 with evidence of pneumoperitoneum, patient was taken to the OR however was considered to be unstable for surgery again this morning On today's evaluation is 09/01/2021, patient remains to be afebrile, the patient is sedated on the vent, patient is currently requiring pressor support to maintain his blood pressure however and no increased pressor requirement per the nursing staff, no significant purulent secretion through the ET or any other changes reported by the nursing staff Objective - Vital Signs Vital signs: Vital Signs Temp 98.0 F 09/01/21 08:00 Pulse 109 H 09/01/21 10:30 Resp 22 09/01/21 10:30 BP 104/66 09/01/21 10:30 Pulse Ox 89 L 09/01/21 06:00 Intake & Output 08/31/21 09/01/21 09/01/21 18:59 06:59 18:59 Intake Total 2466.000 2335.006 707.834 Output Total 140 155 55 Balance 2326.000 2180.006 652.834 Weight 128.9 kg 133 kg 133 kg Intake: IV 1650 1650 600 Sodium Chloride 0.9% 1, 1650 1650 600 000 ml @ 150 mls/hr IV . Q6H40M [facility] Rx#:[id number] Intake, IV Titration 816.000 685.006 107.834 Amount Amiodarone 450 mg In 239.727 Dextrose 5% in Water 250 ml @ 0.5 MG/MIN 16.667 mls/hr IV .Q15H [facility] Rx#: [id number] DAPTOmycin 750 mg In 50 Sodium Chloride 0.9% 50 ml @ 100 mls/hr IVPB Q48H [facility] Rx#:[id number] Norepinephrine 8 mg In 516.000 Sodium Chloride 0.9% 250 ml @ 0.05 MCG/KG/MIN 12. 529 mls/hr IV .[id number] [facility] Rx#:[id number] Norepinephrine 8 mg In 287.003 107.834 Sodium Chloride 0.9% 250 ml @ 0.08 MCG/KG/MIN 19. 954 mls/hr IV .[id number] [facility] LICENSE OF [facility] Rx#:[id number] cefTRIAXone 2 gm In 50 Sodium Chloride 0.9% 50 ml @ 100 mls/hr IVPB Q24HR [facility] Rx#:[id number] propofoL 1,000 mg In 200 158.276 Empty Bag 1 bag @ 5 MCG/ KG/MIN 3.885 mls/hr IV . Q24H [facility] Rx#:[id number] Output: Urine 140 155 55 Other: Voiding Method Indwelling Catheter Indwelling Catheter ABP, PAP, CO, CI - Last Documented Arterial Blood Pressure 115/59 - Exam GENERAL DESCRIPTION: An elderly male intubated on the vent RESPIRATORY SYSTEM: Unlabored breathing , decreased breath sounds at bases HEART: S1 S2 regular rate and rhythm , ABDOMEN: Soft , mild distention EXTREMITIES: Bilateral lower extremity are currently wrapped no drainage on the dressing - Labs CBC & Chem 7: 09/01/21 05:30 09/01/21 05:30 Labs: Abnormal Lab Results - Last 24 Hours (Table) 09/01/21 09/01/21 09/01/21 Range/Units 01:23 05:30 05:30 WBC 13.2 H (3.8-10.6) k/uL RBC 2.50 L (4.30-5.90) m/uL Hgb 7.4 L (13.0-17.5) gm/dL Hct 25.1 L (39.0-53.0) % MCV 100.6 H (80.0-100.0) fL MCHC 29.6 L (31.0-37.0) g/dL RDW 17.1 H (11.5-15.5) % Neutrophils # (Manual) 11.30 H (1.3-7.7) k/uL Lymphocytes # (Manual) 0.26 L (1.0-4.8) k/uL Monocytes # (Manual) 1.06 H (0-1.0) k/uL Metamyelocytes # (Man) 0.40 H (0) k/uL Myelocytes # (Manual) 0.26 H (0) k/uL ABG pH 7.20 L (7.35-7.45) ABG pO2 51 L* (83-108) mmHg ABG HCO3 17 L (21-25) mmol/L ABG O2 Saturation 74.7 L (94-97) % Chloride 115 H (98-107) mmol/L Carbon Dioxide 21 L (22-30) mmol/L BUN 59 H (9-20) mg/dL Creatinine 3.23 H (0.66-1.25) mg/dL Glucose 129 H (74-99) mg/dL Calcium 6.9 L (8.4-10.2) mg/dL 09/01/21 Range/Units 06:30 WBC (3.8-10.6) k/uL RBC (4.30-5.90) m/uL Hgb (13.0-17.5) gm/dL Hct (39.0-53.0) % MCV (80.0-100.0) fL MCHC (31.0-37.0) g/dL RDW (11.5-15.5) % Neutrophils # (Manual) (1.3-7.7) k/uL Lymphocytes # (Manual) (1.0-4.8) k/uL Monocytes # (Manual) (0-1.0) k/uL Metamyelocytes # (Man) (0) k/uL Myelocytes # (Manual) (0) k/uL ABG pH (7.35-7.45) ABG pO2 213 H (83-108) mmHg ABG HCO3 (21-25) mmol/L ABG O2 Saturation 99.8 H (94-97) % Chloride (98-107) mmol/L Carbon Dioxide (22-30) mmol/L BUN (9-20) mg/dL Creatinine (0.66-1.25) mg/dL Glucose (74-99) mg/dL Calcium (8.4-10.2) mg/dL Microbiology - Last 24 Hours (Table) 08/31/21 23:43 Sputum Culture - Preliminary Sputum Assessment and Plan (1) Bacteremia Current Visit: Yes Status: Acute Code(s): R78.81 - BACTEREMIA SNOMED Code(s): 7829756 Plan: 1-Patient with polymicrobial bacteremia concern for right femoral central line which has been discontinued, , catheter tip cultures finalized his Proteus, blood culture positive for enterococcus Klebsiella and Proteus, groin culture with Proteus, patient repeat blood culture were negative on 08/17/2021, patient has completed his antibiotic therapy for his bacteremia, and daptomycin be discontinued 2-patient with perforated viscus concerning for secondary peritonitis , patient to continue with the Zosyn while monitoring his clinical course closely prognosis remains to be guarded Time with Patient: Less than 30
[2021-09-01] MEDS: PIPERACILLIN-TAZOBACTAM 3.375 GM in SODIUM CHLORIDE 0.9% 100 ML IVPB SCH (21:22)
[2021-09-02] MEDS: OXYMETAZOLINE 0.05% NASL SPRAY 1 SPRAY BOTTLE NASAL SCH ×5 (01:00→23:00)
[2021-09-02] MEDS: SODIUM CHLORIDE 0.9% 1,000 ML IV SCH ×4 (01:12→22:30)
[2021-09-02 04:50] LABS: Anisocytosis Slight; HCT 24.7 % (39.0-53.0); HGB 7.3 gm/dL (13.0-17.5); Hypochromasia Marked; MCH 30.4 pg (25.0-35.0); MCHC 29.5 g/dL (31.0-37.0); MCV 103.1 fL (80.0-100.0); Macrocytosis Moderate; Mean Platelet Volume 8.3; Platelet Count 268 k/uL (150-450); Poikilocytosis Moderate; RDW 17.7 % (11.5-15.5)
[2021-09-02 04:56] LABS: Albumin 1.9 g/dL (3.5-5.0); Potassium 3.9 mmol/L (3.5-5.1); Total Bilirubin 0.5 mg/dL (0.2-1.3); Total Protein 4.7 g/dL (6.3-8.2)
[2021-09-02] MEDS: PIPERACILLIN-TAZOBACTAM 3.375 GM in SODIUM CHLORIDE 0.9% 100 ML IVPB SCH ×3 (05:25→21:01)
[2021-09-02] MEDS: NOREPINEPHRINE 8 MG in SODIUM CHLORIDE 0.9% 250 ML IV SCH ×2 (05:31→21:17)
[2021-09-02 05:58] LABS: ABG Base Excess -6.6 mmol/L; ABG HCO3 20 mmol/L (21-25); ABG Oxygen Saturation 97.5 % (94-97); ABG PCO2 42 mmHg (35-45); ABG PH 7.29 (7.35-7.45); ABG PO2 100 mmHg (83-108); ABG TCO2 21 mmol/L (19-24)
[2021-09-02 06:23] LABS: Band Neutrophils % 1 %; Lymphocytes # (M) 1.12 k/uL (1.0-4.8); Metamyelocytes # (M) 0.64 k/uL (0); Metamyelocytes % 4 %; Monocytes # (M) 0.64 k/uL (0-1.0); Myelocytes # (M) 0.64 k/uL (0); Myelocytes % 4 %; Neutrophils % (M) 82 %; Nucleated Red Blood Cells 0 /100 WBC (0-0); Total Cells Counted 200
--- NOTE | 2021-09-02 06:47 | XR ---
EXAMINATION TYPE: XR chest 1V portable DATE OF EXAM: 09/02/2021 COMPARISON: 09/01/2021 HISTORY: Tube placement TECHNIQUE: Single frontal view of the chest is obtained. FINDINGS: There is an ET tube 4.7 cm above the sebastián. There is a left jugular central venous cathet er the tip of which is in the SVC/R junction. There is an NG tube in stomach. There is a 2. Pacemaker . There is a band of opacity in the right midlung zone likely indicating atelectasis or interstitial sc arring. There is a retrocardiac opacity unchanged since previous most likely indicating combination o f atelectasis and small pleural effusion although pneumonic infiltrate is not excluded. Is been no in terval change. The graft there is no pneumothorax. Heart size normal. Pulmonary vasculature is not co ngested. The osseous structures are intact. IMPRESSION: ET tube 4.7 cm above the sebastián. No interval change in the bilateral lung opacities.
[2021-09-02] MEDS: AMIODARONE 450 MG in DEXTROSE 5% IN WATER 250 ML IV SCH ×6 (07:09→23:54)
[2021-09-02] MEDS: CHLORHEXIDINE GLUCONATE 15 ML CUP MUCOUS MEM SCH ×2 (08:18→21:01)
[2021-09-02] MEDS: PANTOPRAZOLE 40 MG/10 ML VIAL IV SCH (08:18)
[2021-09-02] MEDS: FUROSEMIDE 10 MG/ML 10 ML VIAL IV SCH ×3 (08:57→23:00)
--- NOTE | 2021-09-02 10:51 | P.PN ---
Subjective Progress Note Date: 09/02/21 Principal diagnosis: GI bleed This is a pleasant 71-year-old male patient who has a history of atrial fibrillation anticoagulated with Eliquis, recent biventricular pacemaker inse rtion on 07/13/2021 and subsequent evacuation of hematoma on 07/24/2021. He also has a history of obstructive sleep apnea maintained on BiPAP, chronic kidney disease stage III, nephrolithiasis, hyperlipidemia, hypertension, coronary artery disease with previous stent placement, osteoarthritis with previous joint replacements, obesity. Nonsmoker. He presented to the emergency room last evening with a three-week history of increasing bloody bowel movements. Initially just a small amount of blood noted in and it progressed and yesterday he had multiple large bloody bowel movements. He also had some lightheadedness. No abdominal discomfort. No shortness of breath. No chest pain. He is seen today in consultation in the emergency department. He is awake and alert in no acute distress. He is maintaining O2 saturations in the 90s on 2 L/m per nasal cannula. He has 0.9 normal saline at KVO. White count 8.0. Hemoglobin 10.3. Platelets 56,000. INR 1.1. Fibrinogen 358. Pro time 1 1.4. Sodium 140. Potassium 4.1. Bicarb 27. BUN 65. Creatinine 2.22. GFR 28. Troponin 0.035. Thakur virus by PCR not detected. He has received 1 unit of fresh frozen plasma. 2 units of packed red blood cells on hold. This x-ray reveals mild atelectasis in the right lung base without change compared to previous on 07/17/2021. No congestive heart failure. EKG reveals atrial fibrillation with controlled ventricular response. The patient is seen today 08/31/2021 in follow-up in the intensive care unit. As the patient was not in the ICU during his stay we had not been following him since the initial consultation. Yesterday however the patient developed significant abdominal discomfort and a computed tomography scan of the abdomen revealed a moderate to large pneumoperitoneum without obvious etiology found. Findings are concerning for perforated viscus. No bowel obstruction. Small pelvic free fluid. Trace right pleural effusion and mild bibasilar opacities. He was transferred to the intensive care unit for altered mental status and hypotension. Based on these findings the patient was to be taken to the operating room by Dr. Somers however prior to the surgery he developed significant hypotension upon induction of anesthesia. The procedure was aborted and not performed. He remained intubated on mechanical ventilator. Current settings are assist-control mode at a rate of 22, tidal volume 550, FiO2 70% and a PEEP of 10. Morning blood gases revealed a PaO2 of 205, pCO2 36, PH7.40. Chest x-ray just so some atelectatic changes in the bases. Good placement of the Endo and oral gastric tubes. He is currently sedated on propofol at 30 mcg/kg/m. He has normal saline running at 150 MLS per hour. He is requiring norepinephrine currently at 0.18 mcg/kg/m which is approximately 23 mcg/m. He remains in atrial fibrillation with occasional PVCs. He has a left internal jugular triple-lumen catheter in place. Right radial arterial line in place. He has Edis wraps in the bilateral lower extremities. His toes are dusky and somewhat cyanotic more so on the right. He has a right upper extremity midline in place. He has received 2 units of packed red blood cells this admission. 2 units of fresh frozen plasma. A PICC line catheter tip from 08/16/2021 was positive for Proteus mirabilis. A groin wound was positive for Proteus mirabilis. Previous blood cultures were positive for Proteus mirabilis, enterococcus faecalis, Klebsiella oxytoca. Follow-up blood cultures are revealing no growth. White count 12.1. Hemoglobin 7.8. Platelets 296. Sodium 143. Potassium 3.9. Chloride 112. Bicarb 22. BUN 55. Creatinine 3.01. Glucose 126. Troponin 0.138. Cortisol level and TSH levels pending. He remains on antibiotics in the form of ceftriaxone. The patient is seen today 09/01/2021 in follow-up in the intensive care unit. He remains intubated on mechanical ventilator. Current settings assist-control mode at her respiratory rate is 22, tidal volume 550, FiO2 100% and a PEEP of 10. Morning blood gases reveal a P O2 of 213, pCO2 37, pH 7.37. He is currently on amiodarone drip at 0.5 mg/m. Normal saline at 150 MLS per hour. Norepinephrine at 12 mcg/m. Propofol at 10 mcg/kg per minute. He was taken back to the operating room early this morning due to his ongoing pneumoperitoneum due to perforated viscus however again the exploratory laparotomy was aborted due to significant hypotension and unstable vital signs upon induction of general anesthesia. The surgeon at that time had spoken to the patient's family and was considering comfort care. They're still deciding. Chest x-ray remains stable. Minimal pleural effusions. Basilar atelectasis. He is status post 2 units of packed red blood cells and 2 units of fresh frozen plasma this admission. Initial blood cultures revealed Klebsiella oxytoca, enterococcus faecalis, Proteus mirabilis, groin wound was positive for Proteus mirabilis, PICC line catheter tip was positive for Proteus Wiley pelvis. Follow-up blood cultures from 08/17/2021 and 08/18/2021 are revealing no growth thus far. White count 13.2. Hemoglobin 7.4. Platelets 225. Sodium 145. Potassium 3.7. Bicarb 21. BUN 59. Creatinine 3.23. Serum cortisol 37. TSH 0.84. Calcium 6.9. He remains on antibiotics in the form of Zosyn and daptomycin. Continued on bronchodilators. The patient is seen today 09/01/2021 and follow-up in the intensive care unit. He remains intubated on mechanical ventilator. Remains an assist-control mode at a rate of 22, tidal volume 550, FiO2 50% and a PEEP of 10. Chest x-ray reveals band of opacity in the right midlung zone likely indicating atelectasis versus scarring. Bilateral opacities. No pneumothorax. No pulmonary vascular congestion. Endotracheal tube in good position. No morning blood gases performed. White count 16.0. Hemoglobin 7.3. Platelets 268. Sodium 143. Proteus and 3.9. BUN 64. Creatinine 3.17. AST 124. ALT 37. He is continued on amiodarone at 0.5 mg/m. Norepinephrine at 10 mcg/m. Propofol at 15 mcg/kg/m. Normal saline at 100 ML's per hour. Tube feedings initiated currently. His abdomen remains quite distended but soft. He remains in a +4.2 L balance. He is continued on bronchodilators, IV diuretics, antibiotics in the form of Zosyn. Initial blood cultures revealed Klebsiella oxytoca, enterococcus faecalis, Proteus mirabilis, groin wound was positive for Proteus mirabilis, PICC line catheter tip was positive for Proteus mirabilis. Follow-up blood cultures from 08/17/2021 and 08/18/2021 are revealing no growth thus far. Objective - Vital Signs Vital signs: Vital Signs Temp 98.8 F 09/02/21 08:00 Pulse 101 H 09/02/21 10:00 Resp 22 09/02/21 10:00 BP 91/54 09/02/21 09:00 Pulse Ox 92 L 09/02/21 10:00 Intake & Output 09/01/21 09/02/21 09/02/21 18:59 06:59 18:59 Intake Total 2492.977 2267.738 573.329 Output Total 335 160 90 Balance 2157.977 2107.738 483.329 Weight 133 kg 136.6 kg Intake: IV 1950 1750 500 Piperacillin-Tazobactam 3 100 .375 gm In Sodium Chloride 0.9% 100 ml @ 25 mls/hr IVPB Q8H [facility] Rx#: [id number] Sodium Chloride 0.9% 1, 1950 1650 500 000 ml @ 100 mls/hr IV . Q10H [facility] Rx#:[id number] Intake, IV Titration 542.977 517.738 73.329 Amount Amiodarone 450 mg In 250 250 Dextrose 5% in Water 250 ml @ 0.5 MG/MIN 16.667 mls/hr IV .Q15H [facility] Rx#: [id number] Norepinephrine 8 mg In 251.253 110.784 73.329 Sodium Chloride 0.9% 250 ml @ 0.08 MCG/KG/MIN 19. 954 mls/hr IV .[id number] [facility] Rx#:[id number] propofoL 1,000 mg In 41.724 156.954 Empty Bag 1 bag @ 5 MCG/ KG/MIN 3.885 mls/hr IV . Q24H [facility] Rx#:[id number] Output: Urine 335 160 90 Other: Voiding Method Indwelling Catheter Indwelling Catheter ABP, PAP, CO, CI - Last Documented Arterial Blood Pressure 99/53 - Exam GENERAL EXAM: Intubated, sedated obese 71-year-old male patient, comfortable in no apparent distress. HEAD: Normocephalic. EYES: Sluggish reaction of pupils, equal size. NOSE: Clear with pink turbinates. THROAT: Oral endotracheal and gastric tube secured in place. No erythema or exudates. NECK: No masses, no JVD. CHEST: No chest wall deformity. LUNGS: Equal air entry with faint crackles in the posterior bases. CVS: S1 and S2 normal with no audible murmur, regular rhythm. ABDOMEN: Distended, soft. Hypoactive bowel sounds. SPINE: No scoliosis or deformity SKIN: No rashes CENTRAL NERVOUS SYSTEM: No focal deficits, tone is normal in all 4 extremities. EXTREMITIES: Edis wraps to the bilateral lower extremities. Cyanosis noted on the toes more so on the right foot. Peripheral pulses are intact. - Labs CBC & Chem 7: 09/02/21 04:30 09/02/21 04:30 Labs: Abnormal Lab Results - Last 24 Hours (Table) 09/02/21 09/02/21 Range/Units 04:30 04:30 WBC 16.0 H (3.8-10.6) k/uL RBC 2.40 L (4.30-5.90) m/uL Hgb 7.3 L (13.0-17.5) gm/dL Hct 24.7 L (39.0-53.0) % MCV 103.1 H (80.0-100.0) fL MCHC 29.5 L (31.0-37.0) g/dL RDW 17.7 H (11.5-15.5) % Neutrophils # (Manual) 13.20 H (1.3-7.7) k/uL Metamyelocytes # (Man) 0.64 H (0) k/uL Myelocytes # (Manual) 0.64 H (0) k/uL Chloride 116 H (98-107) mmol/L Carbon Dioxide 18 L (22-30) mmol/L BUN 64 H (9-20) mg/dL Creatinine 3.17 H (0.66-1.25) mg/dL Glucose 111 H (74-99) mg/dL Calcium 7.0 L (8.4-10.2) mg/dL AST 124 H (17-59) U/L Total Protein 4.7 L (6.3-8.2) g/dL Albumin 1.9 L (3.5-5.0) g/dL Microbiology - Last 24 Hours (Table) 08/31/21 23:43 Gram Stain - Preliminary Sputum Sputum Culture - Preliminary Assessment and Plan Assessment: 1 Acute hypoxemic respiratory failure acquiring intubation mechanical ventilatory support on 08/30/2021 secondary to acute hypotension the patient f ound to have a moderate to large pneumoperitoneum without obvious etiology seen. Concerns for perforated viscus. Too critical for surgery following anesthesia induction on 08/30/2021 and again early a.m. on 09/01/2021. Remains on pressors. 2 Sepsis with septic shock secondary to Klebsiella oxytoca, Enterococcus faecalis, Proteus mirabilis. Groin wound was present for Proteus mirabilis. PICC line catheter tip was positive for Proteus mirabilis. Currently on Zosyn. 3 GI bleed with drop in hemoglobin from 11.8 to 9.4. Currently 7.3. He received 2 units of packed red blood cells this admission. Received 2 unit fresh frozen plasma. 4 Thrombocytopenia, recovered 5 Atrial fibrillation, anticoagulated with Eliquis in the outpatient setting, currently on hold 6 BiV pacemaker implant on 07/13/2021, required additional wound closure due to oozing of blood on 07/24/2021 7 History of coronary disease with previous stent placement 8 Troponin leak 9 Hypertension 10 Obstructive sleep apnea utilizing BiPAP 11 Osteoarthritis with previous joint replacements 12 Obesity 13 Hyperlipidemia Plan: The patient was seen and evaluated Chest x-ray and labs reviewed Remains on pressors Remains on sedation Continue Zosyn for now Continue vent settings Second attempt at surgery was aborted due to hypotension Overall condition remains critical Family is considering comfort care He is currently a DO NOT RESUSCITATE CODE STATUS We will continue to follow and make further recommendations based on his clinical status I have personally seen and examined the patient, performed the documentation and the assessment and plan as written. Number of minutes spent on the visit: 15.
--- NOTE | 2021-09-02 11:30 | P.PN ---
Subjective Patient is seen for follow-up for acute kidney injury on top of chronic kidney disease. He is currently being diuresed for volume overload. Patient has underlying cardiorenal syndrome. Serum creatinine staying at about 2.4-2.5 mg/dL. Serum creatinine increased to 2.8 yesterday. Blood pressure had been low and a chest x-ray was ordered. Patient was found to have pneumoperitoneum with free air in the abdomen and was taken to the OR. However after anesthesia patient crashed with hypotension and therefore the surgery was not performed Patient was taken back to or late last night and developed significant hypotension again with anesthesia and therefore the surgery was not performed. Urine output remains low Family has been contacted and options for hospice have been discussed as patient cannot have surgery. He remains on the vent, FiO2 is 60%. Patient is also maintained on levo fed currently at 0.08 mcg/kg. Urine output is low at 10-15 mL an hour. Objective - Vital Signs Vital signs: Vital Signs Temp 98.8 F 09/02/21 08:00 Pulse 94 09/02/21 11:00 Resp 22 09/02/21 11:00 BP 91/54 09/02/21 09:00 Pulse Ox 95 09/02/21 11:00 Intake & Output 09/01/21 09/02/21 09/02/21 18:59 06:59 18:59 Intake Total 2492.977 2267.738 573.329 Output Total 335 160 90 Balance 2157.977 2107.738 483.329 Weight 133 kg 136.6 kg Intake: IV 1950 1750 500 Piperacillin-Tazobactam 3 100 .375 gm In Sodium Chloride 0.9% 100 ml @ 25 mls/hr IVPB Q8H [facility] Rx#: [id number] Sodium Chloride 0.9% 1 1950 1650 500 000 ml @ 100 mls/hr IV . Q10H [facility] Rx#:[id number] Intake, IV Titration 542.977 517.738 73.329 Amount Amiodarone 450 mg In 250 250 Dextrose 5% in Water 250 ml @ 0.5 MG/MIN 16.667 mls/hr IV .Q15H [facility] Rx#: [id number] Norepinephrine 8 mg In 251.253 110.784 73.329 Sodium Chloride 0.9% 250 ml @ 0.08 MCG/KG/MIN 19. 954 mls/hr IV .[id number] [facility] Rx#:[id number] propofoL 1,000 mg In 41.724 156.954 Empty Bag 1 bag @ 5 MCG/ KG/MIN 3.885 mls/hr IV . Q24H [facility] Rx#:[id number] Output: Urine 335 160 90 Other: Voiding Method Indwelling Catheter Indwelling Catheter ABP, PAP, CO, CI - Last Documented Arterial Blood Pressure 120/59 - Exam Patient is sedated. He is on the vent. Maintained on levo fed Examination of the heart S1 and S2 Examination lungs bilateral breath sounds are heard Abdomen is soft nontender Exertion lower extremity shows 2+ upper extremities and lower extremities. And chronic skin changes. Both legs are wrapped BOTTOM FILLER exam cannot be performed - Labs CBC & Chem 7: 09/02/21 04:30 09/02/21 04:30 Labs: Abnormal Lab Results - Last 24 Hours (Table) 09/02/21 09/02/21 Range/Units 04:30 04:30 WBC 16.0 H (3.8-10.6) k/uL RBC 2.40 L (4.30-5.90) m/uL Hgb 7.3 L (13.0-17.5) gm/dL Hct 24.7 L (39.0-53.0) % MCV 103.1 H (80.0-100.0) fL MCHC 29.5 L (31.0-37.0) g/dL RDW 17.7 H (11.5-15.5) % Neutrophils # (Manual) 13.20 H (1.3-7.7) k/uL Metamyelocytes # (Man) 0.64 H (0) k/uL Myelocytes # (Manual) 0.64 H (0) k/uL Chloride 116 H (98-107) mmol/L Carbon Dioxide 18 L (22-30) mmol/L BUN 64 H (9-20) mg/dL Creatinine 3.17 H (0.66-1.25) mg/dL Glucose 111 H (74-99) mg/dL Calcium 7.0 L (8.4-10.2) mg/dL AST 124 H (17-59) U/L Total Protein 4.7 L (6.3-8.2) g/dL Albumin 1.9 L (3.5-5.0) g/dL Microbiology - Last 24 Hours (Table) 08/31/21 23:43 Gram Stain - Preliminary Sputum Sputum Culture - Preliminary Assessment and Plan Assessment: 1. Acute kidney injury associated with cardiorenal syndrome and underlying infection causing ATN. Currently oliguric due to worsening hypotension and intra-abdominal pathology with perforated viscus. Computed tomography scan show ed atrophic right kidney with multiple cysts. Left kidney showed cyst without nephrosis. Trace proteinuria on UA Patient will need to be started on renal replacement therapy if "status is not changed to comfort care. 2.Acute on chronic systolic CHF with EF 40-45% with moderate pulmonary hypertension 3. Volume overload and poor urine output 4. Bacteremia associated with possibly central line infection with blood cultures positive for staph Proteus enterococcus and Klebsiella maintained on IV antibiotics, being followed by ID 5. CK D stage III B baseline creatinine about 1.5 etiology nephrosclerosis 6. Acute GI bleed and epistaxis status post EGD and colonoscopy this admission status post DDAVP 7. Anemia, multifactorial associated with blood loss from GI bleed and epistaxis as well as component of anemia of chronic disease, maintained on Aranesp 8. Perforated viscus with free air in the abdomen taken to OR twice . Patient did not tolerate anesthesia on both occasions and developed severe hypotension and shock and therefore no plans for surgery at this time. Plan: Overall prognosis is poor Patient will need renal replacement therapy in the next 24-48 hours as he continues to have poor urine output and is in positive fluid balance. Add scheduled dose of IV Lasix
--- NOTE | 2021-09-02 12:04 | P.PN ---
Subjective Progress Note Date: 09/02/21 Principal diagnosis: Bowel perforation Patient remains on the ventilator. Patient with poor kidney function and nephrology recommending possible dialysis. Patient's family made him a no code and has no desire for any further attempts at surgery at this time. They're considering comfort measures. Objective - Vital Signs Vital signs: Vital Signs Temp 98.8 F 09/02/21 08:00 Pulse 94 09/02/21 11:00 Resp 22 09/02/21 11:00 BP 91/54 09/02/21 09:00 Pulse Ox 95 09/02/21 11:00 Intake & Output 09/01/21 09/02/21 09/02/21 18:59 06:59 18:59 Intake Total 2492.977 2267.738 573.329 Output Total 335 160 90 Balance 2157.977 2107.738 483.329 Weight 133 kg 136.6 kg Intake: IV 1950 1750 500 Piperacillin-Tazobactam 3 100 .375 gm In Sodium Chloride 0.9% 100 ml @ 25 mls/hr IVPB Q8H [facility] Rx#: [id number] Sodium Chloride 0.9% 1, 1950 1650 500 000 ml @ 100 mls/hr IV . Q10H [facility] Rx#:[id number] Intake, IV Titration 542.977 517.738 73.329 Amount Amiodarone 450 mg In 250 250 Dextrose 5% in Water 250 ml @ 0.5 MG/MIN 16.667 mls/hr IV .Q15H [facility] Rx#: [id number] Norepinephrine 8 mg In 251.253 110.784 73.329 Sodium Chloride 0.9% 250 ml @ 0.08 MCG/KG/MIN 19. 954 mls/hr IV .[id number] [facility] Rx#:[id number] propofoL 1,000 mg In 41.724 156.954 Empty Bag 1 bag @ 5 MCG/ KG/MIN 3.885 mls/hr IV . Q24H [facility] Rx#:[id number] Output: Urine 335 160 90 Other: Voiding Method Indwelling Catheter Indwelling Catheter ABP, PAP, CO, CI - Last Documented Arterial Blood Pressure 120/59 - Exam Abdomen: Soft, mild distention, mild diffuse tenderness - Labs CBC & Chem 7: 09/02/21 04:30 09/02/21 04:30 Labs: Abnormal Lab Results - Last 24 Hours (Table) 09/02/21 09/02/21 09/02/21 Range/Units 04:30 04:30 05:54 WBC 16.0 H (3.8-10.6) k/uL RBC 2.40 L (4.30-5.90) m/uL Hgb 7.3 L (13.0-17.5) gm/dL Hct 24.7 L (39.0-53.0) % MCV 103.1 H (80.0-100.0) fL MCHC 29.5 L (31.0-37.0) g/dL RDW 17.7 H (11.5-15.5) % Neutrophils # (Manual) 13.20 H (1.3-7.7) k/uL Metamyelocytes # (Man) 0.64 H (0) k/uL Myelocytes # (Manual) 0.64 H (0) k/uL ABG pH 7.29 L (7.35-7.45) ABG HCO3 20 L (21-25) mmol/L ABG O2 Saturation 97.5 H (94-97) % Chloride 116 H (98-107) mmol/L Carbon Dioxide 18 L (22-30) mmol/L BUN 64 H (9-20) mg/dL Creatinine 3.17 H (0.66-1.25) mg/dL Glucose 111 H (74-99) mg/dL Calcium 7.0 L (8.4-10.2) mg/dL AST 124 H (17-59) U/L Total Protein 4.7 L (6.3-8.2) g/dL Albumin 1.9 L (3.5-5.0) g/dL Microbiology - Last 24 Hours (Table) 08/31/21 23:43 Gram Stain - Preliminary Sputum Sputum Culture - Preliminary Assessment and Plan (1) GI bleed Narrative/Plan: Await family decision regarding possible comfort measures. Continue supportive care for now. Current Visit: Yes Status: Acute Code(s): K92.2 - GASTROINTESTINAL HEMORRHAGE, UNSPECIFIED SNOMED Code(s): 55855353
[2021-09-02 12:14] LABS: Glucose,Whole Blood 117 mg/dL (75-99)
--- NOTE | 2021-09-02 13:48 | P.PN ---
Subjective Patient was examined at bedside continues to be on mechanical ventilation. RN was on the phone with family discussing possible comfort care measures final decision has not obviously been made. Objective - Vital Signs Vital signs: Vital Signs Temp 97.8 F 09/02/21 12:00 Pulse 93 09/02/21 13:00 Resp 22 09/02/21 13:00 BP 91/54 09/02/21 12:00 Pulse Ox 95 09/02/21 13:00 Intake & Output 09/01/21 09/02/21 09/02/21 18:59 06:59 18:59 Intake Total 2492.977 2267.738 962.684 Output Total 335 160 260 Balance 2157.977 2107.738 702.684 Weight 133 kg 136.6 kg Intake: IV 1950 1750 800 Piperacillin-Tazobactam 3 100 .375 gm In Sodium Chloride 0.9% 100 ml @ 25 mls/hr IVPB Q8H [facility] Rx#: [id number] Sodium Chloride 0.9% 1, 1950 1650 800 000 ml @ 100 mls/hr IV . Q10H [facility] Rx#:[id number] Intake, IV Titration 542.977 517.738 162.684 Amount Amiodarone 450 mg In 250 250 Dextrose 5% in Water 250 ml @ 0.5 MG/MIN 16.667 mls/hr IV .Q15H [facility] Rx#: [id number] Norepinephrine 8 mg In 251.253 110.784 73.329 Sodium Chloride 0.9% 250 ml @ 0.08 MCG/KG/MIN 19. 954 mls/hr IV .[id number] [facility] Rx#:[id number] propofoL 1,000 mg In 41.724 156.954 89.355 Empty Bag 1 bag @ 5 MCG/ KG/MIN 3.885 mls/hr IV . Q24H [facility] Rx#:[id number] Output: Urine 335 160 260 Other: Voiding Method Indwelling Catheter Indwelling Catheter Indwelling Catheter ABP, PAP, CO, CI - Last Documented Arterial Blood Pressure 107/56 - Exam Gen: Patient is currently intubated on mechanical ventilation. Resp: Bilateral air entry, slightly decreased breath sounds secondary body habitus. CVS: Normal S1/S2 no murmurs heard. GI: Abdomen is slightly tender on palpation bilaterally. Positive bowel sounds. : no SPT, no CVAT, esquivel catheter not present MSK: +pitting edema, no clubbing Psych: Unable to be assessed patient sedated Extremities/back first and second toes noted right leg - Labs CBC & Chem 7: 09/02/21 04:30 09/02/21 04:30 Labs: Abnormal Lab Results - Last 24 Hours (Table) 09/02/21 09/02/21 09/02/21 Range/Units 04:30 04:30 05:54 WBC 16.0 H (3.8-10.6) k/uL RBC 2.40 L (4.30-5.90) m/uL Hgb 7.3 L (13.0-17.5) gm/dL Hct 24.7 L (39.0-53.0) % MCV 103.1 H (80.0-100.0) fL MCHC 29.5 L (31.0-37.0) g/dL RDW 17.7 H (11.5-15.5) % Neutrophils # (Manual) 13.20 H (1.3-7.7) k/uL Metamyelocytes # (Man) 0.64 H (0) k/uL Myelocytes # (Manual) 0.64 H (0) k/uL ABG pH 7.29 L (7.35-7.45) ABG HCO3 20 L (21-25) mmol/L ABG O2 Saturation 97.5 H (94-97) % Chloride 116 H (98-107) mmol/L Carbon Dioxide 18 L (22-30) mmol/L BUN 64 H (9-20) mg/dL Creatinine 3.17 H (0.66-1.25) mg/dL Glucose 111 H (74-99) mg/dL POC Glucose (mg/dL) (75-99) mg/dL Calcium 7.0 L (8.4-10.2) mg/dL AST 124 H (17-59) U/L Total Protein 4.7 L (6.3-8.2) g/dL Albumin 1.9 L (3.5-5.0) g/dL 09/02/21 Range/Units 12:12 WBC (3.8-10.6) k/uL RBC (4.30-5.90) m/uL Hgb (13.0-17.5) gm/dL Hct (39.0-53.0) % MCV (80.0-100.0) fL MCHC (31.0-37.0) g/dL RDW (11.5-15.5) % Neutrophils # (Manual) (1.3-7.7) k/uL Metamyelocytes # (Man) (0) k/uL Myelocytes # (Manual) (0) k/uL ABG pH (7.35-7.45) ABG HCO3 (21-25) mmol/L ABG O2 Saturation (94-97) % Chloride (98-107) mmol/L Carbon Dioxide (22-30) mmol/L BUN (9-20) mg/dL Creatinine (0.66-1.25) mg/dL Glucose (74-99) mg/dL POC Glucose (mg/dL) 117 H (75-99) mg/dL Calcium (8.4-10.2) mg/dL AST (17-59) U/L Total Protein (6.3-8.2) g/dL Albumin (3.5-5.0) g/dL Microbiology - Last 24 Hours (Table) 08/31/21 23:43 Gram Stain - Preliminary Sputum Sputum Culture - Preliminary Assessment and Plan Assessment: Assessment: #1 pneumoperitoneum -new onset #1 acute gastrointestinal bleeding #2 epistaxis status post packing-resolved #3 left foot cellulitis/right femoral central line associated bloodstream infection #4 congestive heart failure with reduced ejection fraction #5 acute kidney injury on CK component of cardiorenal syndrome #6 paroxysmal atrial fibrillation status post pacemaker on a coagulation #7 essential hypertension #8 history of coronary disease status post stents 10 years ago #9 Constipation/abdominal discomfort #10 sigmoid diverticulosis/small bowel intestinal bleeding per colonoscopy #11 acute respiratory failure currently on MV Plan: -Admit to medicine for close monitoring -Aspiration/fall precaution/HOB 30 -Unable to perform exploratory laparoscopy. Unable to tolerate induction of anesthesia. -Prognosis very poor, recommend goals of care discussion with family. -Note by GI on 08/16/2021 suggested against present regulation due to high risk of rebleed with sigmoid diverticulosis and small bowel intestinal bleeding. -Continue with daptomycin and Rocephin needs antimicrobials until 08/31/2021. -RN discussing possible comfort care measures with family. To be determined. -DVT prophylaxis SCDs for now will need clearance to initiate pharmacologic DVT prophylaxis by GI.
--- NOTE | 2021-09-02 15:34 | PN ---
PROGRESS NOTE This is a 71-year-old gentleman with history of coronary artery disease, status post prior angioplasty, persistent atrial fibrillation, history of biventricular pacemaker, who is admitted to the hospital with a perforated bowel and twice they were trying to take him to surgery and could not because of hypotension. He is currently on 10 mics of Levophed. Remains in atrial fibrillation with controlled ventricular rate and they are currently in the process of making him comfort care. EXAM: Comfortable at rest. Heart rate is 90 beats per minute. Blood pressure is 103/58, respiratory 18. Chest exam reveals diminished air entry at the bases. Heart exam reveals first and second heart sounds, irregular rhythm. Abdomen: Soft. Exam of extremities reveals 1+ edema. Peripheral pulses are felt. LAB: Show a hemoglobin of 7.3, platelet count is 268, potassium is 3.9, BUN is 64, creatinine is 3.1. ASSESSMENT: 1. Persistent atrial fibrillation with controlled ventricular rate. 2. Perforated bowel unable to do surgery. 3. Hypotension. PLAN: Continue current measures. We will follow the patient on an as-needed basis. MMODL / IJN: [id number] /
[2021-09-02] MEDS ORDERED: POTASSIUM CHLORIDE 20 MEQ in WATER FOR INJECTION 1 100ML.BAG IVPB ONE (16:00)
[2021-09-02 17:40] LABS: Glucose,Whole Blood 99 mg/dL (75-99)
--- NOTE | 2021-09-02 21:40 | P.PN ---
Subjective Progress Note Date: 09/02/21 Principal diagnosis: Bacteremia Patient is a 71-year-old male admitted to the hospital about a week ago for evaluation of bleeding per rectum and weakness the patient did have a right groin central line with the patient was noticed to have some purulent drainage which has been discontinued blood culture positive with multiple pathogen. The patient has pulled out his PICC line and followed by his midline, patient did have a CT of abdominal pelvis completed 08/30/2021 with evidence of pneumoperitoneum, patient was taken to the OR however was considered to be unstable for surgery again this morning On today's evaluation is 09/02/2021, patient is afebrile, the patient is sedated on the vent, patient is currently requiring pressor support to maintain his blood pressure however slightly decreased amount per the nursing staff, no significant purulent secretion through the ET or any other changes reported by the nursing staff Objective - Vital Signs Vital signs: Vital Signs Temp 97.8 F 09/02/21 12:00 Pulse 96 09/02/21 15:00 Resp 22 09/02/21 15:00 BP 91/54 09/02/21 12:00 Pulse Ox 95 09/02/21 15:00 Intake & Output 09/01/21 09/02/21 09/02/21 18:59 06:59 18:59 Intake Total 2492.977 2267.738 1162.684 Output Total 335 160 370 Balance 2157.977 2107.738 792.684 Weight 133 kg 136.6 kg Intake: IV 1950 1750 1000 Piperacillin-Tazobactam 3 100 .375 gm In Sodium Chloride 0.9% 100 ml @ 25 mls/hr IVPB Q8H [facility] Rx#: [id number] Sodium Chloride 0.9% 11949 1650 1000 000 ml @ 100 mls/hr IV . Q10H [facility] Rx#:[id number] Intake, IV Titration 542.977 517.738 162.684 Amount Amiodarone 450 mg In 250 250 Dextrose 5% in Water 250 ml @ 0.5 MG/MIN 16.667 mls/hr IV .Q15H [facility] Rx#: [id number] Norepinephrine 8 mg In 251.253 110.784 73.329 Sodium Chloride 0.9% 250 ml @ 0.08 MCG/KG/MIN 19. 954 mls/hr IV .[id number] [facility] Rx#:[id number] propofoL 1,000 mg In 41.724 156.954 89.355 Empty Bag 1 bag @ 5 MCG/ KG/MIN 3.885 mls/hr IV . Q24H [facility] Rx#:[id number] Output: Urine 335 160 370 Other: Voiding Method Indwelling Catheter Indwelling Catheter Indwelling Catheter ABP, PAP, CO, CI - Last Documented Arterial Blood Pressure 102/59 - Exam GENERAL DESCRIPTION: An elderly male intubated on the vent RESPIRATORY SYSTEM: Unlabored breathing , decreased breath sounds at bases HEART: S1 S2 regular rate and rhythm , ABDOMEN: Soft , mild distention EXTREMITIES: Bilateral lower extremity are currently wrapped no drainage on the dressing - Labs CBC & Chem 7: 09/02/21 04:30 09/02/21 04:30 Labs: Abnormal Lab Results - Last 24 Hours (Table) 09/02/21 09/02/21 09/02/21 Range/Units 04:30 04:30 05:54 WBC 16.0 H (3.8-10.6) k/uL RBC 2.40 L (4.30-5.90) m/uL Hgb 7.3 L (13.0-17.5) gm/dL Hct 24.7 L (39.0-53.0) % MCV 103.1 H (80.0-100.0) fL MCHC 29.5 L (31.0-37.0) g/dL RDW 17.7 H (11.5-15.5) % Neutrophils # (Manual) 13.20 H (1.3-7.7) k/uL Metamyelocytes # (Man) 0.64 H (0) k/uL Myelocytes # (Manual) 0.64 H (0) k/uL ABG pH 7.29 L (7.35-7.45) ABG HCO3 20 L (21-25) mmol/L ABG O2 Saturation 97.5 H (94-97) % Chloride 116 H (98-107) mmol/L Carbon Dioxide 18 L (22-30) mmol/L BUN 64 H (9-20) mg/dL Creatinine 3.17 H (0.66-1.25) mg/dL Glucose 111 H (74-99) mg/dL POC Glucose (mg/dL) (75-99) mg/dL Calcium 7.0 L (8.4-10.2) mg/dL AST 124 H (17-59) U/L Total Protein 4.7 L (6.3-8.2) g/dL Albumin 1.9 L (3.5-5.0) g/dL 09/02/21 Range/Units 12:12 WBC (3.8-10.6) k/uL RBC (4.30-5.90) m/uL Hgb (13.0-17.5) gm/dL Hct (39.0-53.0) % MCV (80.0-100.0) fL MCHC (31.0-37.0) g/dL RDW (11.5-15.5) % Neutrophils # (Manual) (1.3-7.7) k/uL Metamyelocytes # (Man) (0) k/uL Myelocytes # (Manual) (0) k/uL ABG pH (7.35-7.45) ABG HCO3 (21-25) mmol/L ABG O2 Saturation (94-97) % Chloride (98-107) mmol/L Carbon Dioxide (22-30) mmol/L BUN (9-20) mg/dL Creatinine (0.66-1.25) mg/dL Glucose (74-99) mg/dL POC Glucose (mg/dL) 117 H (75-99) mg/dL Calcium (8.4-10.2) mg/dL AST (17-59) U/L Total Protein (6.3-8.2) g/dL Albumin (3.5-5.0) g/dL Microbiology - Last 24 Hours (Table) 08/31/21 23:43 Gram Stain - Preliminary Sputum Sputum Culture - Preliminary Assessment and Plan (1) Bacteremia Current Visit: Yes Status: Acute Code(s): R78.81 - BACTEREMIA SNOMED Code(s): 7868053 Plan: 1-Patient with polymicrobial bacteremia concern for right femoral central line which has been discontinued, , catheter tip cultures finalized his Proteus, blood culture positive for enterococcus Klebsiella and Proteus, groin culture with Proteus, patient repeat blood culture were negative on 08/17/2021, patient has completed his antibiotic therapy for his bacteremia, and daptomycin be discontinued 2-patient with perforated viscus concerning for secondary peritonitis , patient is currently covered with the Zosyn which will be continued while monitoring his clinical course closely prognosis remains to be guarded Time with Patient: Less than 30
[2021-09-02 23:15] LABS: Glucose,Whole Blood 109 mg/dL (75-99)
[2021-09-03 04:29] LABS: Anisocytosis Slight; HCT 25.6 % (39.0-53.0); HGB 7.4 gm/dL (13.0-17.5); Hypochromasia Marked; MCH 29.5 pg (25.0-35.0); MCHC 28.8 g/dL (31.0-37.0); MCV 102.1 fL (80.0-100.0); Macrocytosis Moderate; Platelet Count 265 k/uL (150-450); Poikilocytosis Moderate; RBC 2.51 m/uL (4.30-5.90); RDW 17.1 % (11.5-15.5)
[2021-09-03 04:43] LABS: Calcium 7.3 mg/dL (8.4-10.2); Potassium 3.8 mmol/L (3.5-5.1)
[2021-09-03 05:21] LABS: Anisocytosis (M) Present; Band Neutrophils % 3 %; Metamyelocytes # (M) 0.34 k/uL (0); Metamyelocytes % 2 %; Monocytes # (M) 0.52 k/uL (0-1.0); Myelocytes # (M) 0.34 k/uL (0); Myelocytes % 2 %; Neutrophils % (M) 84 %; Nucleated Red Blood Cells 2 /100 WBC (0-0); Poikilocytosis (M) Present; Total Cells Counted 200; WBC 17.2 k/uL (3.8-10.6)
[2021-09-03 06:08] LABS: ABG Base Excess -7.4 mmol/L; ABG HCO3 19 mmol/L (21-25); ABG Oxygen Saturation 90.5 % (94-97); ABG PCO2 39 mmHg (35-45); ABG PH 7.29 (7.35-7.45); ABG PO2 65 mmHg (83-108); ABG TCO2 20 mmol/L (19-24); Allen Test Performed? Yes
[2021-09-03 06:16] LABS: C Reactive Protein 49.5 mg/dL (<1.0)
[2021-09-03] MEDS: PIPERACILLIN-TAZOBACTAM 3.375 GM in SODIUM CHLORIDE 0.9% 100 ML IVPB SCH ×3 (06:18→21:19)
[2021-09-03] MEDS: OXYMETAZOLINE 0.05% NASL SPRAY 1 SPRAY BOTTLE NASAL SCH ×4 (06:19→23:57)
--- NOTE | 2021-09-03 06:47 | XR ---
EXAMINATION TYPE: XR chest 1V portable DATE OF EXAM: 09/03/2021 COMPARISON: 09/02/2021 HISTORY: Tube placement TECHNIQUE: Single frontal view of the chest is obtained Findings: The ET tube is 4.9 cm above the sebastián. There is an NG tube with stomach. There is a left-sided centr al venous catheter the tip of which is in the SVC/R junction. There is a 2-lead cardiac pacemaker. There is no change in the retrocardiac opacity obscuring left hemidiaphragm likely combination of ate lectasis and pleural effusion. There is hazy density obscuring the right hemidiaphragm likely represe nting pleural fluid. There is no change in the pulmonary vascular congestion and no change in bandlike opacity in the righ t midlung zone most likely representing interstitial scarring or atelectasis. There is no pneumothorax. The osseous structures are intact. IMPRESSION: ET tube 4.9 cm above the sebastián. No significant change in the acute cardiopulmonary
[2021-09-03] MEDS: POTASSIUM CHLORIDE 20 MEQ in WATER FOR INJECTION 1 100ML.BAG IVPB SCH ×2 (07:10→09:28)
[2021-09-03] MEDS: PANTOPRAZOLE 40 MG/10 ML VIAL IV SCH (08:21)
[2021-09-03] MEDS: CHLORHEXIDINE GLUCONATE 15 ML CUP MUCOUS MEM SCH ×2 (08:21→20:00)
[2021-09-03] MEDS: FUROSEMIDE 10 MG/ML 10 ML VIAL IV SCH ×3 (08:21→23:36)
[2021-09-03] MEDS: SODIUM CHLORIDE 0.9% 1,000 ML IV SCH ×2 (08:22→19:11)
--- NOTE | 2021-09-03 09:35 | P.PN ---
<Bharat,Dionna - Last Filed: 09/03/21 09:27> Subjective Progress Note Date: 09/03/21 Principal diagnosis: GI bleed This is a pleasant 71-year-old male patient who has a history of atrial fibrillation anticoagulated with Eliquis, recent biventricular pacemaker insertion on 07/13/2021 and subsequent evacuation of hematoma on 07/24/2021. He also has a history of obstructive sleep apnea maintained on BiPAP, chronic kidney disease stage III, nephrolithiasis, hyperlipidemia, hypertension, coronar y artery disease with previous stent placement, osteoarthritis with previous joint replacements, obesity. Nonsmoker. He presented to the emergency room last evening with a three-week history of increasing bloody bowel movements. Initially just a small amount of blood noted in and it progressed and yesterday he had multiple large bloody bowel movements. He also had some lightheadedness. No abdominal discomfort. No shortness of breath. No chest pain. He is seen today in consultation in the emergency department. He is awake and alert in no acute distress. He is maintaining O2 saturations in the 90s on 2 L/m per nasal cannula. He has 0.9 normal saline at KVO. White count 8.0. Hemoglobin 10.3. Platelets 56,000. INR 1.1. Fibrinogen 358. Pro time 11.4. Sodium 140. Potassium 4.1. Bicarb 27. BUN 65. Creatinine 2.22. GFR 28. Troponin 0.035. Thakur virus by PCR not detected. He has received 1 unit of fresh frozen plasma. 2 units of packed red blood cells on hold. This x-ray reveals mild atelectasis in the right lung base without change compared to previous on 07/17/2021. No congestive heart failure. EKG reveals atrial fibrillation with controlled ventricular response. The patient is seen today 08/31/2021 in follow-up in the intensive care unit. As the patient was not in the ICU during his stay we had not been following him since the initial consultation. Yesterday however the patient developed significant abdominal discomfort and a computed tomography scan of the abdomen revealed a moderate to large pneumoperitoneum without obvious etiology found. F indings are concerning for perforated viscus. No bowel obstruction. Small pelvic free fluid. Trace right pleural effusion and mild bibasilar opacities. He was transferred to the intensive care unit for altered mental status and hypotension. Based on these findings the patient was to be taken to the operating room by Dr. Somers however prior to the surgery he developed significant hypotension upon induction of anesthesia. The procedure was aborted and not performed. He remained intubated on mechanical ventilator. Current settings are assist-control mode at a rate of 22, tidal volume 550, FiO2 70% and a PEEP of 10. Morning blood gases revealed a PaO2 of 205, pCO2 36, PH7.40. Chest x-ray just so some atelectatic changes in the bases. Good placement of the Endo and oral gastric tubes. He is currently sedated on propofol at 30 mcg/kg/m. He has normal saline running at 150 MLS per hour. He is requiring norepinephrine currently at 0.18 mcg/kg/m which is approximately 23 mcg/m. He remains in atrial fibrillation with occasional PVCs. He has a left internal jugular triple-lumen catheter in place. Right radial arterial line in place. He has Edis wraps in the bilateral lower extremities. His toes are dusky and somewhat cyanotic more so on the right. He has a right upper extremity midline in place. He has received 2 units of packed red blood cells this admission. 2 units of fresh frozen plasma. A PICC line catheter tip from 08/16/2021 was positive for Proteus mirabilis. A groin wound was positive for Proteus mirabilis. Previous blood cultures were positive for Proteus mirabilis, enterococcus faecalis, Klebsiella oxytoca. Follow-up blood cultures are revealing no growth. White count 12.1. Hemoglobin 7.8. Platelets 296. Sodium 143. Potassium 3.9. Chloride 112. Bicarb 22. BUN 55. Creatinine 3.01. Glucose 126. Troponin 0.138. Cortisol level and TSH levels pending. He remains on antibiotics in the form of ceftriaxone. The patient is seen today 09/01/2021 in follow-up in the intensive care unit. He remains intubated on mechanical ventilator. Current settings assist-control mode at her respiratory rate is 22, tidal volume 550, FiO2 100% and a PEEP of 10. Morning blood gases reveal a P O2 of 213, pCO2 37, pH 7.37. He is currently on amiodarone drip at 0.5 mg/m. Normal saline at 150 MLS per hour. Norepinephrine at 12 mcg/m. Propofol at 10 mcg/kg per minute. He was taken back to the operating room early this morning due to his ongoing pneumoperitoneum due to perforated viscus however again the exploratory laparotomy was aborted due to significant hypotension and unstable vital signs upon induction of general anesthesia. The surgeon at that time had spoken to the patient's family and was considering comfort care. They're still deciding. Chest x-ray remains stable. Minimal pleural effusions. Basilar atelectasis. He is status post 2 units of packed red blood cells and 2 units of fresh frozen plasma this admission. Initial blood cultures revealed Klebsiella oxytoca, enterococcus faecalis, Proteus mirabilis, groin wound was positive for Proteus mirabilis, PICC line catheter tip was positive for Proteus Wiley pelvis. Follow-up blood cultures from 08/17/2021 and 08/18/2021 are revealing no growth thus far. White count 13.2. Hemoglobin 7.4. Platelets 225. Sodium 145. Potassium 3.7. Bicarb 21. BUN 59. Creatinine 3.23. Serum cortisol 37. TSH 0.84. Calcium 6.9. He remains on antibiotics in the form of Zosyn and daptomycin. Continued on bronchodilators. The patient is seen today 09/02/2021 and follow-up in the intensive care unit. He remains intubated on mechanical ventilator. Remains an assist-control mode at a rate of 22, tidal volume 550, FiO2 50% and a PEEP of 10. Chest x-ray reveals band of opacity in the right midlung zone likely indicating atelectasis versus scarring. Bilateral opacities. No pneumothorax. No pulmonary vascular congestion. Endotracheal tube in good position. No morning blood gases performed. White count 16.0. Hemoglobin 7.3. Platelets 268. Sodium 143. Proteus and 3.9. BUN 64. Creatinine 3.17. AST 124. ALT 37. He is continued on amiodarone at 0.5 mg/m. Norepinephrine at 10 mcg/m. Propofol at 15 mcg/kg/m. Normal saline at 100 ML's per hour. Tube feedings initiated currently. His abdomen remains quite distended but soft. He remains in a +4.2 L balance. He is continued on bronchodilators, IV diuretics, antibiotics in the form of Zosyn. Initial blood cultures revealed Klebsiella oxytoca, enterococcus faecalis, Proteus mirabilis, groin wound was positive for Proteus mirabilis, PICC line catheter tip was positive for Proteus mirabilis. Follow-up blood cultures from 08/17/2021 and 08/18/2021 are revealing no growth thus far. The patient is seen today 09/03/2021 in follow-up in the intensive care unit. He remains intubated on mechanical ventilator. Currently in assist-control mode. Respiratory rate 22, tidal on 550, FiO2 50% and a PEEP of 10. Morning blood gases revealed a pO2 of 65, pCO2 39, pH 7.30. Initial show retrocardiac opacity. Left hemidiaphragm secondary to atelectasis versus effusion. He is a density obscuring the right hemidiaphragm representing a pleural effusion. There is no change in the pulmonary vascular congestion. No change in family capacity of the right midlung zone. Suspect interstitial scarring versus atelectasis. He remains sedated on propofol at 15 mcg/kg/m. Requiring norepinephrine at 5 mcg/m. Amiodarone at 0.5 mg/m. He has normal saline running at 100 ML's per hour. He remains on antibiotics in the form of Zosyn. He is status post 2 units of packed red blood cells and 2 units of fresh frozen plasma this admission. Follow-up sputum culture is pending. Follow-up blood c ultures revealed no growth to date. His cultures were positive for Proteus mirabilis on the PICC line catheter tip and the groin wound. Previous blood cultures are positive for Klebsiella oxytoca, enterococcus faecalis, Proteus mirabilis. White count 17.2. Hemoglobin 7.4. Platelets 265. Sodium 145. Potassium 3.8. Bicarb 19. BUN 66. Creatinine 3.7. Glucose 109. He is currently in a +2.3 L balance. He remains afebrile. He is continued on DuoNeb inhalations. Objective - Vital Signs Vital signs: Vital Signs Temp 97.3 F L 09/03/21 08:00 Pulse 101 H 09/03/21 08:00 Resp 22 09/03/21 08:00 BP 98/50 09/03/21 07:00 Pulse Ox 92 L 09/03/21 08:00 Intake & Output 09/02/21 09/03/21 09/03/21 17:59 06:59 18:59 Intake Total 322.216 Output Total 75 Balance 247.216 Weight Intake: IV 200 Piperacillin-Tazobactam 3 .375 gm In Sodium Chloride 0.9% 100 ml @ 25 mls/hr IVPB Q8H [facility] Rx#: [id number] Potassium Chloride 20 meq In Water For Injection 1 100ml.bag @ 50 mls/hr IVPB ONCE ONE Rx#: [id number] Sodium Chloride 0.9% 1, 200 000 ml @ 100 mls/hr IV . Q10H [facility] Rx#:[id number] Intake, IV Titration 122.216 Amount Amiodarone 450 mg In Dextrose 5% in Water 250 ml @ 0.5 MG/MIN 16.667 mls/hr IV .Q15H [facility] Rx#: [id number] Norepinephrine 8 mg In 122.216 Sodium Chloride 0.9% 250 ml @ 0.08 MCG/KG/MIN 19. 954 mls/hr IV .[id number] [facility] Rx#:[id number] propofoL 1,000 mg In Empty Bag 1 bag @ 5 MCG/ KG/MIN 3.885 mls/hr IV . Q24H [facility] Rx#:[id number] Lipid Sodium Chloride 0.9% 1, 000 ml @ 100 mls/hr IV . Q10H [facility] Rx#:[id number] Output: Urine 75 Other: Voiding Method ABP, PAP, CO, CI - Last Documented Arterial Blood Pressure 111/56 - Exam GENERAL EXAM: Intubated, sedated obese 71-year-old male patient, in no apparent distress. HEAD: Normocephalic. EYES: Sluggish reaction of pupils, equal size. NOSE: Clear with pink turbinates. THROAT: Oral endotracheal and gastric tube secured in place. No erythema or exudates. NECK: No masses, no JVD. CHEST: No chest wall deformity. LUNGS: Equal air entry with faint crackles in the posterior bases. CVS: S1 and S2 normal with no audible murmur, irregular rhythm. ABDOMEN: Distended, soft. Hypoactive bowel sounds. SPINE: No scoliosis or deformity SKIN: No rashes CENTRAL NERVOUS SYSTEM: No focal deficits, tone is normal in all 4 extremities. EXTREMITIES: Edis wraps to the bilateral lower extremities. Cyanosis noted on the toes more so on the right foot. Peripheral pulses are intact. - Labs CBC & Chem 7: 09/03/21 04:10 09/03/21 04:10 Labs: Abnormal Lab Results - Last 24 Hours (Table) 09/02/21 09/02/21 09/02/21 Range/Units 05:54 12:12 23:13 WBC (3.8-10.6) k/uL RBC (4.30-5.90) m/uL Hgb (13.0-17.5) gm/dL Hct (39.0-53.0) % MCV (80.0-100.0) fL MCHC (31.0-37.0) g/dL RDW (11.5-15.5) % Neutrophils # (Manual) (1.3-7.7) k/uL Metamyelocytes # (Man) (0) k/uL Myelocytes # (Manual) (0) k/uL Nucleated RBCs (0-0) /100 WBC ABG pH 7.29 L (7.35-7.45) ABG pO2 (83-108) mmHg ABG HCO3 20 L (21-25) mmol/L ABG O2 Saturation 97.5 H (94-97) % Chloride (98-107) mmol/L Carbon Dioxide (22-30) mmol/L BUN (9-20) mg/dL Creatinine (0.66-1.25) mg/dL Glucose (74-99) mg/dL POC Glucose (mg/dL) 117 H 109 H (75-99) mg/dL Calcium (8.4-10.2) mg/dL C-Reactive Protein (<1.0) mg/dL 09/03/21 09/03/21 09/03/21 Range/Units 04:10 04:10 06:02 WBC 17.2 H (3.8-10.6) k/uL RBC 2.51 L (4.30-5.90) m/uL Hgb 7.4 L (13.0-17.5) gm/dL Hct 25.6 L (39.0-53.0) % MCV 102.1 H (80.0-100.0) fL MCHC 28.8 L (31.0-37.0) g/dL RDW 17.1 H (11.5-15.5) % Neutrophils # (Manual) 14.90 H (1.3-7.7) k/uL Metamyelocytes # (Man) 0.34 H (0) k/uL Myelocytes # (Manual) 0.34 H (0) k/uL Nucleated RBCs 2 H (0-0) /100 WBC ABG pH 7.29 L (7.35-7.45) ABG pO2 65 L (83-108) mmHg ABG HCO3 19 L (21-25) mmol/L ABG O2 Saturation 90.5 L (94-97) % Chloride 116 H (98-107) mmol/L Carbon Dioxide 19 L (22-30) mmol/L BUN 66 H (9-20) mg/dL Creatinine 3.70 H (0.66-1.25) mg/dL Glucose 109 H (74-99) mg/dL POC Glucose (mg/dL) (75-99) mg/dL Calcium 7.3 L (8.4-10.2) mg/dL C-Reactive Protein 49.5 H (<1.0) mg/dL Assessment and Plan Assessment: 1 Acute hypoxemic respiratory failure acquiring intubation mechanical ventilatory support on 08/30/2021 secondary to acute hypotension the patient found to have a moderate to large pneumoperitoneum without obvious etiology seen. Concerns for perforated viscus. Too critical for surgery following anesthesia induction on 08/30/2021 and again early a.m. on 09/01/2021. Remains on pressors. 2 Sepsis with septic shock secondary to Klebsiella oxytoca, Enterococcus faecalis, Proteus mirabilis. Groin wound was present for Proteus mirabilis. PICC line catheter tip was positive for Proteus mirabilis. Currently on Zosyn. 3 GI bleed with drop in hemoglobin from 11.8 to 9.4. Currently 7.4. He received 2 units of packed red blood cells this admission. Received 2 unit fresh frozen plasma. 4 Thrombocytopenia, recovered 5 Atrial fibrillation, anticoagulated with Eliquis in the outpatient setting, currently on hold 6 BiV pacemaker implant on 07/13/2021, required additional wound closure due to oozing of blood on 07/24/2021 7 History of coronary disease with previous stent placement 8 Troponin leak 9 Hypertension 10 Obstructive sleep apnea utilizing BiPAP 11 Osteoarthritis with previous joint replacements 12 Obesity 13 Hyperlipidemia Plan: The patient was seen and evaluated Chest x-ray, ABGs and labs reviewed Continue with the current treatment plan Overall condition remains critical Family is considering comfort care Continue full supportive care for now He is currently a DO NOT RESUSCITATE CODE STATUS We will continue to follow and make further recommendations based on his clinical status I have personally seen and examined the patient, performed the documentation and the assessment and plan as written. Number of minutes spent on the visit: 15. <Rico Jurado - Last Filed: 09/03/21 09:37> Objective - Vital Signs Vital signs: Vital Signs Temp 97.3 F L 09/03/21 08:00 Pulse 101 H 09/03/21 08:00 Resp 22 09/03/21 08:00 BP 98/50 09/03/21 07:00 Pulse Ox 92 L 09/03/21 08:00 Intake & Output 09/02/21 09/03/21 09/03/21 17:59 06:59 18:59 Intake Total 322.216 Output Total 75 Balance 247.216 Weight Intake: IV 200 Piperacillin-Tazobactam 3 .375 gm In Sodium Chloride 0.9% 100 ml @ 25 mls/hr IVPB Q8H [facility] Rx#: [id number] Potassium Chloride 20 meq In Water For Injection 1 100ml.bag @ 50 mls/hr IVPB ONCE ONE Rx#: [id number] Sodium Chloride 0.9% 1, 200 000 ml @ 100 mls/hr IV . Q10H [facility] Rx#:[id number] Intake, IV Titration 122.216 Amount Amiodarone 450 mg In Dextrose 5% in Water 250 ml @ 0.5 MG/MIN 16.667 mls/hr IV .Q15H [facility] Rx#: [id number] Norepinephrine 8 mg In 122.216 Sodium Chloride 0.9% 250 ml @ 0.08 MCG/KG/MIN 19. 954 mls/hr IV .[id number] [facility] Rx#:[id number] propofoL 1,000 mg In Empty Bag 1 bag @ 5 MCG/ KG/MIN 3.885 mls/hr IV . Q24H [facility] Rx#:[id number] Lipid Sodium Chloride 0.9% 1, 000 ml @ 100 mls/hr IV . Q10H [facility] Rx#:[id number] Output: Urine 75 Other: Voiding Method ABP, PAP, CO, CI - Last Documented Arterial Blood Pressure 111/56 - Labs CBC & Chem 7: 09/03/21 04:10 09/03/21 04:10 Labs: Abnormal Lab Results - Last 24 Hours (Table) 09/02/21 09/02/21 09/02/21 Range/Units 05:54 12:12 23:13 WBC (3.8-10.6) k/uL RBC (4.30-5.90) m/uL Hgb (13.0-17.5) gm/dL Hct (39.0-53.0) % MCV (80.0-100.0) fL MCHC (31.0-37.0) g/dL RDW (11.5-15.5) % Neutrophils # (Manual) (1.3-7.7) k/uL Metamyelocytes # (Man) (0) k/uL Myelocytes # (Manual) (0) k/uL Nucleated RBCs (0-0) /100 WBC ABG pH 7.29 L (7.35-7.45) ABG pO2 (83-108) mmHg ABG HCO3 20 L (21-25) mmol/L ABG O2 Saturation 97.5 H (94-97) % Chloride (98-107) mmol/L Carbon Dioxide (22-30) mmol/L BUN (9-20) mg/dL Creatinine (0.66-1.25) mg/dL Glucose (74-99) mg/dL POC Glucose (mg/dL) 117 H 109 H (75-99) mg/dL Calcium (8.4-10.2) mg/dL C-Reactive Protein (<1.0) mg/dL 09/03/21 09/03/21 09/03/21 Range/Units 04:10 04:10 06:02 WBC 17.2 H (3.8-10.6) k/uL RBC 2.51 L (4.30-5.90) m/uL Hgb 7.4 L (13.0-17.5) gm/dL Hct 25.6 L (39.0-53.0) % MCV 102.1 H (80.0-100.0) fL MCHC 28.8 L (31.0-37.0) g/dL RDW 17.1 H (11.5-15.5) % Neutrophils # (Manual) 14.90 H (1.3-7.7) k/uL Metamyelocytes # (Man) 0.34 H (0) k/uL Myelocytes # (Manual) 0.34 H (0) k/uL Nucleated RBCs 2 H (0-0) /100 WBC ABG pH 7.29 L (7.35-7.45) ABG pO2 65 L (83-108) mmHg ABG HCO3 19 L (21-25) mmol/L ABG O2 Saturation 90.5 L (94-97) % Chloride 116 H (98-107) mmol/L Carbon Dioxide 19 L (22-30) mmol/L BUN 66 H (9-20) mg/dL Creatinine 3.70 H (0.66-1.25) mg/dL Glucose 109 H (74-99) mg/dL POC Glucose (mg/dL) (75-99) mg/dL Calcium 7.3 L (8.4-10.2) mg/dL C-Reactive Protein 49.5 H (<1.0) mg/dL
--- NOTE | 2021-09-03 10:58 | P.PN ---
Subjective Patient was examined at bedside today. Continues to be on mechanical ventilation. Case discussed with RN present at bedside. Anticipating family to be present at bedside sometime today for goals of care discussion. Objective - Vital Signs Vital signs: Vital Signs Temp 97.3 F L 09/03/21 08:00 Pulse 99 09/03/21 10:30 Resp 23 09/03/21 10:30 BP 98/50 09/03/21 07:00 Pulse Ox 93 L 09/03/21 10:30 Intake & Output 09/02/21 09/03/21 09/03/21 17:59 06:59 18:59 Intake Total 345.122 Output Total 75 Balance 270.122 Weight Intake: IV 200 Piperacillin-Tazobactam 3 .375 gm In Sodium Chloride 0.9% 100 ml @ 25 mls/hr IVPB Q8H [facility] Rx#: [id number] Potassium Chloride 20 meq In Water For Injection 1 100ml.bag @ 50 mls/hr IVPB ONCE ONE Rx#: [id number] Sodium Chloride 0.9% 1, 200 000 ml @ 100 mls/hr IV . Q10H [facility] Rx#:[id number] Intake, IV Titration 145.122 Amount Amiodarone 450 mg In Dextrose 5% in Water 250 ml @ 0.5 MG/MIN 16.667 mls/hr IV .Q15H [facility] Rx#: [id number] Norepinephrine 8 mg In 145.122 Sodium Chloride 0.9% 250 ml @ 0.08 MCG/KG/MIN 19. 954 mls/hr IV .[id number] [facility] Rx#:[id number] propofoL 1,000 mg In Empty Bag 1 bag @ 5 MCG/ KG/MIN 3.885 mls/hr IV . Q24H [facility] Rx#:[id number] Lipid Sodium Chloride 0.9% 1, 000 ml @ 100 mls/hr IV . Q10H [facility] Rx#:[id number] Output: Urine 75 Other: Voiding Method Indwelling Catheter ABP, PAP, CO, CI - Last Documented Arterial Blood Pressure 79/44 - Exam Gen: Patient is currently intubated on mechanical ventilation. Resp: Bilateral air entry, slightly decreased breath sounds secondary body h abitus. CVS: Normal S1/S2 no murmurs heard. GI: Abdomen is slightly tender on palpation bilaterally. Positive bowel sounds. : no SPT, no CVAT, esquivel catheter not present MSK: +pitting edema, no clubbing Psych: Unable to be assessed patient sedated Extremities/back first and second toes noted right leg - Labs CBC & Chem 7: 09/03/21 04:10 09/03/21 04:10 Labs: Abnormal Lab Results - Last 24 Hours (Table) 09/02/21 09/02/21 09/02/21 Range/Units 05:54 12:12 23:13 WBC (3.8-10.6) k/uL RBC (4.30-5.90) m/uL Hgb (13.0-17.5) gm/dL Hct (39.0-53.0) % MCV (80.0-100.0) fL MCHC (31.0-37.0) g/dL RDW (11.5-15.5) % Neutrophils # (Manual) (1.3-7.7) k/uL Metamyelocytes # (Man) (0) k/uL Myelocytes # (Manual) (0) k/uL Nucleated RBCs (0-0) /100 WBC ABG pH 7.29 L (7.35-7.45) ABG pO2 (83-108) mmHg ABG HCO3 20 L (21-25) mmol/L ABG O2 Saturation 97.5 H (94-97) % Chloride (98-107) mmol/L Carbon Dioxide (22-30) mmol/L BUN (9-20) mg/dL Creatinine (0.66-1.25) mg/dL Glucose (74-99) mg/dL POC Glucose (mg/dL) 117 H 109 H (75-99) mg/dL Calcium (8.4-10.2) mg/dL C-Reactive Protein (<1.0) mg/dL 09/03/21 09/03/21 09/03/21 Range/Units 04:10 04:10 06:02 WBC 17.2 H (3.8-10.6) k/uL RBC 2.51 L (4.30-5.90) m/uL Hgb 7.4 L (13.0-17.5) gm/dL Hct 25.6 L (39.0-53.0) % MCV 102.1 H (80.0-100.0) fL MCHC 28.8 L (31.0-37.0) g/dL RDW 17.1 H (11.5-15.5) % Neutrophils # (Manual) 14.90 H (1.3-7.7) k/uL Metamyelocytes # (Man) 0.34 H (0) k/uL Myelocytes # (Manual) 0.34 H (0) k/uL Nucleated RBCs 2 H (0-0) /100 WBC ABG pH 7.29 L (7.35-7.45) ABG pO2 65 L (83-108) mmHg ABG HCO3 19 L (21-25) mmol/L ABG O2 Saturation 90.5 L (94-97) % Chloride 116 H (98-107) mmol/L Carbon Dioxide 19 L (22-30) mmol/L BUN 66 H (9-20) mg/dL Creatinine 3.70 H (0.66-1.25) mg/dL Glucose 109 H (74-99) mg/dL POC Glucose (mg/dL) (75-99) mg/dL Calcium 7.3 L (8.4-10.2) mg/dL C-Reactive Protein 49.5 H (<1.0) mg/dL Assessment and Plan Assessment: Assessment: #1 pneumoperitoneum -new onset #1 acute gastrointestinal bleeding #2 epistaxis status post packing-resolved #3 left foot cellulitis/right femoral central line associated bloodstream infection #4 congestive heart failure with reduced ejection fraction #5 acute kidney injury on CK component of cardiorenal syndrome #6 paroxysmal atrial fibrillation status post pacemaker on a coagulation #7 essential hypertension #8 history of coronary disease status post stents 10 years ago #9 Constipation/abdominal discomfort #10 sigmoid diverticulosis/small bowel intestinal bleeding per colonoscopy #11 acute respiratory failure currently on MV Plan: -Admit to medicine for close monitoring -Aspiration/fall precaution/HOB 30 -Unable to perform exploratory laparoscopy. Unable to tolerate induction of anesthesia. -Prognosis very poor, recommend goals of care discussion with family - today per RN -Note by GI on 08/16/2021 suggested against present regulation due to high risk of rebleed with sigmoid diverticulosis and small bowel intestinal bleeding. -Antimicrobials as per ID. Mycobacterial G reviewed. -comfort care measures with family. To be determined. -DVT prophylaxis SCDs for now -Prognosis poor.
--- NOTE | 2021-09-03 11:48 | P.PN ---
Subjective Progress Note Date: 09/03/21 Principal diagnosis: Bowel perforation Patient has been stable since yesterday. White blood cell count remains elevated at 17.2, hemoglobin 7.4. Remains on the ventilator. Family meeting today. Objective - Vital Signs Vital signs: Vital Signs Temp 97.3 F L 09/03/21 08:00 Pulse 99 09/03/21 10:30 Resp 23 09/03/21 10:30 BP 98/50 09/03/21 07:00 Pulse Ox 93 L 09/03/21 10:30 Intake & Output 09/02/21 09/03/21 09/03/21 17:59 06:59 18:59 Intake Total 345.122 Output Total 75 Balance 270.122 Weight Intake: IV 200 Piperacillin-Tazobactam 3 .375 gm In Sodium Chloride 0.9% 100 ml @ 25 mls/hr IVPB Q8H [facility] Rx#: [id number] Potassium Chloride 20 meq In Water For Injection 1 100ml.bag @ 50 mls/hr IVPB ONCE ONE Rx#: [id number] Sodium Chloride 0.9% 1, 200 000 ml @ 100 mls/hr IV . Q10H [facility] Rx#:[id number] Intake, IV Titration 145.122 Amount Amiodarone 450 mg In Dextrose 5% in Water 250 ml @ 0.5 MG/MIN 16.667 mls/hr IV .Q15H [facility] Rx#: [id number] Norepinephrine 8 mg In 145.122 Sodium Chloride 0.9% 250 ml @ 0.08 MCG/KG/MIN 19. 954 mls/hr IV .[id number] [facility] Rx#:[id number] propofoL 1,000 mg In Empty Bag 1 bag @ 5 MCG/ KG/MIN 3.885 mls/hr IV . Q24H [facility] Rx#:[id number] Lipid Sodium Chloride 0.9% 1, 000 ml @ 100 mls/hr IV . Q10H [facility] Rx#:[id number] Output: Urine 75 Other: Voiding Method Indwelling Catheter ABP, PAP, CO, CI - Last Documented Arterial Blood Pressure 79/44 - Exam Abdomen: Soft, diffuse tenderness, distended - Labs CBC & Chem 7: 09/03/21 04:10 09/03/21 04:10 Labs: Abnormal Lab Results - Last 24 Hours (Table) 03/06/1409/02/21 09/02/21 Range/Units 05:54 12:12 23:13 WBC (3.8-10.6) k/uL RBC (4.30-5.90) m/uL Hgb (13.0-17.5) gm/dL Hct (39.0-53.0) % MCV (80.0-100.0) fL MCHC (31.0-37.0) g/dL RDW (11.5-15.5) % Neutrophils # (Manual) (1.3-7.7) k/uL Metamyelocytes # (Man) (0) k/uL Myelocytes # (Manual) (0) k/uL Nucleated RBCs (0-0) /100 WBC ABG pH 7.29 L (7.35-7.45) ABG pO2 (83-108) mmHg ABG HCO3 20 L (21-25) mmol/L ABG O2 Saturation 97.5 H (94-97) % Chloride (98-107) mmol/L Carbon Dioxide (22-30) mmol/L BUN (9-20) mg/dL Creatinine (0.66-1.25) mg/dL Glucose (74-99) mg/dL POC Glucose (mg/dL) 117 H 109 H (75-99) mg/dL Calcium (8.4-10.2) mg/dL C-Reactive Protein (<1.0) mg/dL 09/03/21 09/03/21 09/03/21 Range/Units 04:10 04:10 06:02 WBC 17.2 H (3.8-10.6) k/uL RBC 2.51 L (4.30-5.90) m/uL Hgb 7.4 L (13.0-17.5) gm/dL Hct 25.6 L (39.0-53.0) % MCV 102.1 H (80.0-100.0) fL MCHC 28.8 L (31.0-37.0) g/dL RDW 17.1 H (11.5-15.5) % Neutrophils # (Manual) 14.90 H (1.3-7.7) k/uL Metamyelocytes # (Man) 0.34 H (0) k/uL Myelocytes # (Manual) 0.34 H (0) k/uL Nucleated RBCs 2 H (0-0) /100 WBC ABG pH 7.29 L (7.35-7.45) ABG pO2 65 L (83-108) mmHg ABG HCO3 19 L (21-25) mmol/L ABG O2 Saturation 90.5 L (94-97) % Chloride 116 H (98-107) mmol/L Carbon Dioxide 19 L (22-30) mmol/L BUN 66 H (9-20) mg/dL Creatinine 3.70 H (0.66-1.25) mg/dL Glucose 109 H (74-99) mg/dL POC Glucose (mg/dL) (75-99) mg/dL Calcium 7.3 L (8.4-10.2) mg/dL C-Reactive Protein 49.5 H (<1.0) mg/dL Assessment and Plan (1) GI bleed Narrative/Plan: Patient remains on the ventilator. Leukocytosis persists. Family is meeting today about possible comfort measures. Continue supportive care. Current Visit: Yes Status: Acute Code(s): K92.2 - GASTROINTESTINAL HEMORRHAGE, UNSPECIFIED SNOMED Code(s): 32067239
--- NOTE | 2021-09-03 13:25 | P.PN ---
Subjective Patient is seen for follow-up for acute kidney injury on top of chronic kidney disease. He is currently being diuresed for volume overload. Patient has underlying cardiorenal syndrome. Serum creatinine staying at about 2.4-2.5 mg/dL. Serum creatinine increased to 2.8 yesterday. Blood pressure had been low and a chest x-ray was ordered. Patient was found to have pneumoperitoneum with free air in the abdomen and was taken to the OR. However after anesthesia patient crashed with hypotension and therefore the surgery was not performed Patient was taken back to OR twice and developed significant hypotension again with anesthesia and therefore the surgery was not performed. Urine output remains low Family has been contacted and options for hospice have been discussed as patient cannot have surgery. He remains on the vent, FiO2 is 60%. Patient is also maintained on levo fed currently at 0.09 mcg/kg. Urine output is slightly improved to about 25-50 mL an hour. Family will be coming in today to make further decisions regarding level of care. Objective - Vital Signs Vital signs: Vital Signs Temp 97.9 F 09/03/21 12:00 Pulse 96 09/03/21 13:00 Resp 23 09/03/21 13:00 BP 98/50 09/03/21 07:00 Pulse Ox 92 L 09/03/21 13:00 Intake & Output 09/02/21 09/03/21 09/03/21 17:59 06:59 18:59 Intake Total 875.386 Output Total 265 Balance 610.386 Weight Intake: IV 600 Piperacillin-Tazobactam 3 100 .375 gm In Sodium Chloride 0.9% 100 ml @ 25 mls/hr IVPB Q8H [facility] Rx#: [id number] Potassium Chloride 20 meq 100 In Water For Injection 1 100ml.bag @ 50 mls/hr IVPB ONCE ONE Rx#: [id number] Sodium Chloride 0.9% 1, 400 000 ml @ 100 mls/hr IV . Q10H [facility] Rx#:[id number] Intake, IV Titration 275.386 Amount Amiodarone 450 mg In Dextrose 5% in Water 250 ml @ 0.5 MG/MIN 16.667 mls/hr IV .Q15H [facility] Rx#: [id number] Norepinephrine 8 mg In 175.386 Sodium Chloride 0.9% 250 ml @ 0.08 MCG/KG/MIN 19. 954 mls/hr IV .[id number] [facility] Rx#:[id number] propofoL 1,000 mg In 100 Empty Bag 1 bag @ 5 MCG/ KG/MIN 3.885 mls/hr IV . Q24H [facility] Rx#:[id number] Lipid Sodium Chloride 0.9% 1, 000 ml @ 100 mls/hr IV . Q10H [facility] Rx#:[id number] Output: Urine 265 Other: Voiding Method Indwelling Catheter ABP, PAP, CO, CI - Last Documented Arterial Blood Pressure 105/54 - Exam Patient is sedated. He is on the vent. Maintained on levo fed Examination of the heart S1 and S2 Examination lungs bilateral breath sounds are heard Abdomen is soft nontender Exertion lower extremity shows 2+ upper extremities and lower extremities. And chronic skin changes. Both legs are wrapped right foot is discolored and seems to be worse today [employer] exam cannot be performed - Labs CBC & Chem 7: 09/03/21 04:10 09/03/21 04:10 Labs: Abnormal Lab Results - Last 24 Hours (Table) 09/02/21 09/03/21 09/03/21 Range/Units 23:13 04:10 04:10 WBC (3.8-10.6) k/uL RBC (4.30-5.90) m/uL Hgb (13.0-17.5) gm/dL Hct (39.0-53.0) % MCV (80.0-100.0) fL MCHC (31.0-37.0) g/dL RDW (11.5-15.5) % Neutrophils # (Manual) (1.3-7.7) k/uL Metamyelocytes # (Man) (0) k/uL Myelocytes # (Manual) (0) k/uL Nucleated RBCs (0-0) /100 WBC ABG pH (7.35-7.45) ABG pO2 (83-108) mmHg ABG HCO3 (21-25) mmol/L ABG O2 Saturation (94-97) % Chloride 116 H (98-107) mmol/L Carbon Dioxide 19 L (22-30) mmol/L BUN 66 H (9-20) mg/dL Creatinine 3.70 H (0.66-1.25) mg/dL Glucose 109 H (74-99) mg/dL POC Glucose (mg/dL) 109 H (75-99) mg/dL Calcium 7.3 L (8.4-10.2) mg/dL C-Reactive Protein 49.5 H (<1.0) mg/dL Procalcitonin 3.82 H (0.02-0.09) ng/mL 09/03/21 09/03/21 Range/Units 04:10 06:02 WBC 17.2 H (3.8-10.6) k/uL RBC 2.51 L (4.30-5.90) m/uL Hgb 7.4 L (13.0-17.5) gm/dL Hct 25.6 L (39.0-53.0) % MCV 102.1 H (80.0-100.0) fL MCHC 28.8 L (31.0-37.0) g/dL RDW 17.1 H (11.5-15.5) % Neutrophils # (Manual) 14.90 H (1.3-7.7) k/uL Metamyelocytes # (Man) 0.34 H (0) k/uL Myelocytes # (Manual) 0.34 H (0) k/uL Nucleated RBCs 2 H (0-0) /100 WBC ABG pH 7.29 L (7.35-7.45) ABG pO2 65 L (83-108) mmHg ABG HCO3 19 L (21-25) mmol/L ABG O2 Saturation 90.5 L (94-97) % Chloride (98-107) mmol/L Carbon Dioxide (22-30) mmol/L BUN (9-20) mg/dL Creatinine (0.66-1.25) mg/dL Glucose (74-99) mg/dL POC Glucose (mg/dL) (75-99) mg/dL Calcium (8.4-10.2) mg/dL C-Reactive Protein (<1.0) mg/dL Procalcitonin (0.02-0.09) ng/mL Assessment and Plan Assessment: 1. Acute kidney injury, Currently oliguric due to worsening hypotension and intra-abdominal pathology with perforated viscus. Computed tomography scan showed atrophic right kidney with multiple cysts. Left kidney showed cyst without nephrosis. Trace proteinuria on UA Patient will need to be started on renal replacement therapy if code status is not changed to comfort care. 2. Acute on chronic systolic CHF with EF 40-45% with moderate pulmonary hypertension 3. Volume overload and poor urine output 4. Bacteremia associated with possibly central line infection with blood cultures positive for staph Proteus enterococcus and Klebsiella maintained on IV antibiotics, being followed by ID 5. CK D stage III B baseline creatinine about 1.5 etiology nephrosclerosis 6. Acute GI bleed and epistaxis status post EGD and colonoscopy this admission status post DDAVP 7. Anemia, multifactorial associated with blood loss from GI bleed and epistax is as well as component of anemia of chronic disease, maintained on Aranesp 8. Perforated viscus with free air in the abdomen taken to OR twice . Patient did not tolerate anesthesia on both occasions and developed severe hypotension and shock and therefore no plans for surgery at this time. Plan: Patient will likely need renal replacement therapy in the next few days, mostly for volume overload. Continue scheduled dose of IV Lasix
--- NOTE | 2021-09-03 15:38 | PN ---
PROGRESS NOTE FOLLOW-UP NOTE: This is a 71-year-old gentleman who is admitted to ICU with perforated bowel, and twice they made an attempt to take him to surgery and they could not. He remains in the ICU and family has decided to make a decision about comfort care on Saturday. He has history of CAD and prior angioplasty, atrial fibrillation, history of pacemaker. At the time of my evaluation he is intubated on vent and sedated. Remains in atrial fibrillation with controlled ventricular rate. Blood pressure is 105/50. Chest exam reveals diminished air entry bilaterally. Heart exam reveals first and second heart sounds, irregular rhythm, and a systolic murmur at the left lower sternal border. Labs show a hemoglobin of 7.4. Potassium is 3.8. BUN is 66, creatinine is 3.7. ASSESSMENT: 1. Status post perforated bowel. 2. Multi-organ failure, including respiratory failure. 3. Hypotension. 4. Atrial fibrillation with controlled ventricular rate. MMODL / IJN: [id number] /
[2021-09-03] MEDS: NOREPINEPHRINE 8 MG in SODIUM CHLORIDE 0.9% 250 ML IV SCH ×2 (16:16→22:35)
[2021-09-03] MEDS: AMIODARONE 450 MG in DEXTROSE 5% IN WATER 250 ML IV SCH ×2 (16:17)
[2021-09-03 17:43] LABS: Glucose,Whole Blood 102 mg/dL (75-99)
[2021-09-04] MEDS: NOREPINEPHRINE 8 MG in SODIUM CHLORIDE 0.9% 250 ML IV SCH ×4 (00:25→07:40)
[2021-09-04] MEDS: SODIUM CHLORIDE 0.9% 1,000 ML IV SCH (03:41)
[2021-09-04 05:19] LABS: Calcium 7.6 mg/dL (8.4-10.2); Potassium 4.7 mmol/L (3.5-5.1)
[2021-09-04 05:56] LABS: ABG Base Excess -16.1 mmol/L; ABG HCO3 14 mmol/L (21-25); ABG Oxygen Saturation 88.9 % (94-97); ABG PCO2 46 mmHg (35-45); ABG PO2 73 mmHg (83-108); ABG TCO2 15 mmol/L (19-24); Allen Test Performed? Yes
[2021-09-04 05:59] LABS: ABG PH 7.09 (7.35-7.45)
[2021-09-04] MEDS: OXYMETAZOLINE 0.05% NASL SPRAY 1 SPRAY BOTTLE NASAL SCH (06:00)
[2021-09-04 06:02] LABS: Anisocytosis Slight; HCT 33.7 % (39.0-53.0); Hypochromasia Marked; MCH 29.2 pg (25.0-35.0); MCHC 27.5 g/dL (31.0-37.0); MCV 106.3 fL (80.0-100.0); Macrocytosis Marked; Mean Platelet Volume 9.6; Platelet Count 345 k/uL (150-450); Poikilocytosis Moderate; RBC 3.17 m/uL (4.30-5.90); RDW 17.4 % (11.5-15.5)
[2021-09-04 06:10] LABS: HGB 9.3 gm/dL (13.0-17.5)
[2021-09-04] MEDS ORDERED: DEXTROSE 5% IN WATER 1,000 ML with SODIUM BICARB (1 MEQ/ML) 150 ML IV SCH (06:15)
[2021-09-04] MEDS: PIPERACILLIN-TAZOBACTAM 3.375 GM in SODIUM CHLORIDE 0.9% 100 ML IVPB SCH (06:34)
--- NOTE | 2021-09-04 07:10 | XR ---
EXAMINATION TYPE: XR chest 1V portable DATE OF EXAM: 09/04/2021 COMPARISON: 09/03/2021 HISTORY: SOB, Follow Up FINDINGS: Endotracheal tube is approximately 3.9 cm from the sebastián. NG tube is seen coursing towards the stoma ch. The distal tip of the NG tube is cut off the [id number]. Increasing right lower lobe infiltrate, atelectasis and/or effusion. There is stable left basilar inc reased opacity. Stable appearance of the cardio-mediastinal structures at this time. Pleural effusion unchanged. IMPRESSION: 1. Increasing right lower lobe infiltrate, atelectasis and/or effusion. There is stable left basilar increased opacity.
--- NOTE | 2021-09-04 08:10 | P.PN ---
Progress Note - Text Progress Note Date: 09/04/21 This is an unfortunate 71-year-old gentleman with a past medical history significant for permanent atrial fibrillation as well as multiple comorbid conditions was admitted to the hospital with abdominal discomfort and was diagnosed with perforated bowel. His hospital course was prolonged and co mplicated as well. The hospital course was complicated by respiratory failure as well as multiorgan failure. The patient seen this morning. He remains intubated on mechanical ventilation. He remains hemodynamically stable requiring vasopressors as well. Remains in atrial fibrillation with heart rate around 110 beats per minutes. He is on amiodarone by mouth. He is also on heparin IV. There is discussion that the patient potentially might go into comfort care in the next 24-48 hours. From the cardiovascular standpoint of view, we'll continue the current medical regimen.
[2021-09-04 08:11] VITALS: TEMP 97.4
[2021-09-04 09:11] VITALS: RESP 22
[2021-09-04] MEDS ORDERED: LORazepam 2 MG/ML INJ IV PRN (09:12)
[2021-09-04] MEDS ORDERED: ATROPINE OPHTH SOLN 1% 5ML BTL SUBLINGUAL PRN (09:12)
[2021-09-04] MEDS ORDERED: MORPHINE SULFATE 2 MG/ML SYRINGE IV PRN (09:12)
[2021-09-04] MEDS ORDERED: MORPHINE SULFATE 4 MG/ML SYRINGE IV PRN (09:12)
[2021-09-04] MEDS ORDERED: SCOPOLAMINE 1 MG/72 HR PATCH TRANSDERM SCH (09:15)
[2021-09-04] MEDS ORDERED: MORPHINE SULFATE (100 MG/2 ML) 100 MG in SODIUM CHLORIDE 0.9% 100 ML IV SCH (09:15)
[2021-09-04] MEDS: CHLORHEXIDINE GLUCONATE 15 ML CUP MUCOUS MEM SCH (09:53)
[2021-09-04] MEDS: PANTOPRAZOLE 40 MG/10 ML VIAL IV SCH (09:53)
[2021-09-04] MEDS: FUROSEMIDE 10 MG/ML 10 ML VIAL IV SCH (09:53)
[2021-09-04 10:02] VITALS: BP 88/60; PULSE 101
--- NOTE | 2021-09-04 10:06 | P.PN ---
Progress Note - Text Progress Note Date: 09/04/21 71-year-old male patient being seen in the intensive care units. Note was made of the events that led into the hospitalization and ICU care of this patient. In summary, the patient is critically ill. He is intubated on a mechanical ventilator. He is known to have multiple medical problems and comorbidities. He is known to have COPD, previous coronary stenting, hypertension, hyperlipidemia, stage III chronic kidney disease, obstructive sleep apnea, chronic atrial fibrillation, history of biventricular pacemaker insertion on 07/13/2021 and subsequent evacuation of a hematoma on 07/24/2021. The patient is currently in the intensive care unit because of acute hypoxic respiratory failure requiring intubation mechanical ventilation. The patient is septic secondary to Klebsiella and Enterococcus faecalis and Proteus mirabilis and this is multifactorial sepsis secondary to an acute abdomen as the patient has pneumoperitoneum, and general surgeries on the case, and attempts were done yesterday to take this patient to the operating room twice but the patient was quite unstable. His CODE STATUS was switched to a DNR/DNI and earlier this morning I was informed that the patient is headed hours comfort care. Family is not at the bedside. However, instructions were given to the nurses to proceed with comfort care measures upon family's wishes. The patient remains on pressors. The patient is currently running on norepinephrine the rate of 0.78 mcg/kg per minute. He is on a bicarb infusion. He is sedated with propofol. Most recent blood pressure is 72/53. He remains on amiodarone for chronic atrial fibrillation. Current cardiac rhythm is a chest fibrillation with a rate of a 100. He remains on a mechanical ventilator. Ventilator settings remain unchanged compared to yesterday. His and a PEEP of 10 with an FiO2 of 50% with a tidal volume of 5:15 the rate of 22. He is blood work from today shows a white cell count of 23 with a hemoglobin of 9.3, his blood gases shows a pH of 7.09 with a pCO2 of 46 and pO2 of 73. Serum bicarbs and 13. Creatinine is at 3.8. Urine output is now present. Plan Proceed with comfort care measures/end-of-life care. Admonished to be offered from my standpoint today. Family is aware. Family has opted to proceed with comfort care measures/end-of-life care.
[2021-09-04 12:12] LABS: Band Neutrophils % 17 %; Lymphocytes # (M) 1.23 k/uL (1.0-4.8); Metamyelocytes # (M) 1.85 k/uL (0); Metamyelocytes % 9 %; Monocytes # (M) 1.03 k/uL (0-1.0); Myelocytes # (M) 1.23 k/uL (0); Myelocytes % 6 %; Neutrophils % (M) 58 %; Nucleated Red Blood Cells 16 /100 WBC (0-0); Total Cells Counted 200; WBC 20.5 k/uL (3.8-10.6)
[2021-09-04 12:13] LABS: Polychromasia Present
--- NOTE | 2021-09-04 12:21 | P.PN ---
Progress Note - Text Progress Note Date: 09/04/21 Per discussion with nursing, patient passed this morning.
--- NOTE | 2021-09-04 12:40 | P.DS ---
Providers Date of admission: 08/11/21 22:05 Expected date of discharge: 09/04/21 Attending physician: Clarissa Arias MD Consults: 08/11/21 22:05 Consult Physician Routine Consulting Provider: Rico Jurado Consult Reason/Comments: GI bleed Do you want consulting provider notified?: Already Contacted 08/17/21 09:33 Consult Physician Routine Consulting Provider: Lyubov Ferguson Consult Reason/Comments: CLABSI Do you want consulting provider notified?: Yes 08/21/21 07:02 Consult Physician Routine Consulting Provider: Navin Muhammad Consult Reason/Comments: Acute nose bleed Do you want consulting provider notified?: Yes 08/21/21 08:23 Consult Physician Routine Consulting Provider: Rene Jacques Consult Reason/Comments: low GFR, needs picc line, need arm decision Do you want consulting provider notified?: Yes 08/30/21 14:00 Consult Physician Stat Consulting Provider: Theresa Mccullough Consult Reason/Comments: evalaute for perforation - Do you want consulting provider notified?: Yes 08/30/21 16:42 Consult Physician Routine Consulting Provider: Rico Jurado Consult Reason/Comments: pnemoperitoneum - ICU level care for hemodynamic monitoring Do you want consulting provider notified?: Already Contacted 08/31/21 09:53 Consult Physician Routine Consulting Provider: Gonzalo Higuera Consult Reason/Comments: a-fib Do you want consulting provider notified?: Already Contacted Primary care physician: Giovani Doll MD Hospital Course: #1 pneumoperitoneum -new onset #1 acute gastrointestinal bleeding #2 epistaxis status post packing-resolved #3 left foot cellulitis/right femoral central line associated bloodstream infection #4 Acute on Chronic congestive heart failure with reduced ejection fraction, EF 40-45% #5 acute kidney injury on CK component of cardiorenal syndrome #6 paroxysmal atrial fibrillation status post pacemaker on a coagulation #7 essential hypertension #8 history of coronary disease status post stents 10 years ago #9 Constipation/abdominal discomfort #10 sigmoid diverticulosis/small bowel intestinal bleeding per colonoscopy #11 acute respiratory failure currently on MV This is unfortunate 71-year-old man who presented initially with abdominal pain was found to have GI bleeding, had central line placed and was transfused 2 units of packed red blood cells on the day of admission. His initial EGD on 08/14 demonstrated Martinez's esophagus, grade D erosive esophagitis without active duodenitis or stigmata of bleeding. He subsequently underwent colonoscopy on 08/16 which demonstrated severe sigmoid diverticulosis with recent bleeding, grade 3 internal hemorrhoids with recent inflammation. His hospital course was subsequently complicated by central line associated bloodstream infection of the right femoral central line, ultimately growing Klebsiella, enterococcus, Proteus. Patient's central line was removed and he had peripheral access via midline. Subsequent blood cultures drawn 24 and 48 hours after initial positive blood culture on 08/16 demonstrated clearance while patient was being treated with vancomycin and cefepime. Patient has PICC line placed on 08/22, however, patient subsequently developed severe epistaxis warranting Rhino Rocket for approximately 1 week to control the bleed, despite having stopped his Apixiban and Plavix. During this prolonged hospital course, patient subseq uently developed new onset abdominal pain and had an abdomen/pelvis computed tomography scan done on 08/30 which showed moderate to large pneumoperitoneum concerning for perforated viscus. Surgery was consulted and recommended exploratory laparotomy, however, unfortunately, the patient was unable to tolerate sedation/anesthesia. He subsequently developed respiratory failure requiring mechanical ventilation and placement of the ICU. After 2 unsuccessful attempts to take the patient to the operating room, patient's family was notified of patient's declining medical condition, and opted to make patient comfort care on 09/04. Patient was compassionately extubated at 1039, and at 1043 with comfort measures. Patient prior to ma obtaining physical exam Plan - Discharge Summary New Discharge Prescriptions: No Action Apixaban [Eliquis] 5 mg PO BID ALPRAZolam [Xanax] 1 mg PO HS Aspirin [Adult Low Dose Aspirin EC] 81 mg PO DAILY Latanoprost Ophth [Xalatan 0.005%] 1 drops BOTH EYES HS ml allopurinoL [Zyloprim] 100 mg PO DAILY Acetaminophen-Codeine 300-30mg [Tylenol w/codeine #3] 1 tab PO Q6H PRN PRN Reason: Pain Pantoprazole Sodium [Protonix] 40 mg PO DAILY Atorvastatin [Lipitor] 80 mg PO DAILY SILVER sulfADIAZINE CREAM [Silvadene Cream] 1 applic TOPICAL DAILY PRN PRN Reason: WOUND CARE Metoprolol Succinate [Toprol XL] 50 mg PO HS Menthol-Zinc Oxide Oint [Calmoseptine Oint] 1 applic TOPICAL BID PRN PRN Reason: SKIN CONDITIONS Ferrous Sulfate [Feosol] 325 mg PO DAILY Spironolactone [Aldactone] 25 mg PO DAILY 30 Days #30 tab Furosemide [Lasix] 60 mg PO DAILY Metoprolol Succinate (ER) [Toprol XL] 25 mg PO DAILY #90 tab Amiodarone HCl [Pacerone] 100 mg PO DAILY Metoclopramide [Reglan] 5 mg PO W/BRKFST Discharge Medication List ALPRAZolam [Xanax] 1 mg PO HS 04/15/15 [History] Apixaban [Eliquis] 5 mg PO BID 04/15/15 [History] Aspirin [Adult Low Dose Aspirin EC] 81 mg PO DAILY 04/09/16 [History] Latanoprost Ophth [Xalatan 0.005%] 1 drops BOTH EYES HS ml 04/13/16 [Rx] allopurinoL [Zyloprim] 100 mg PO DAILY 05/07/19 [History] Acetaminophen-Codeine 300-30mg [Tylenol w/codeine #3] 1 tab PO Q6H PRN 01/20/21 [History] Atorvastatin [Lipitor] 80 mg PO DAILY 02/20/21 [History] Pantoprazole Sodium [Protonix] 40 mg PO DAILY 02/20/21 [History] Spironolactone [Aldactone] 25 mg PO DAILY 30 Days #30 tab 02/24/21 [Rx] Furosemide [Lasix] 60 mg PO DAILY 03/30/21 [History] Metoprolol Succinate (ER) [Toprol XL] 25 mg PO DAILY #90 tab 04/03/21 [Rx] Amiodarone HCl [Pacerone] 100 mg PO DAILY 08/11/21 [History] Ferrous Sulfate [Feosol] 325 mg PO DAILY 08/11/21 [History] Menthol-Zinc Oxide Oint [Calmoseptine Oint] 1 applic TOPICAL BID PRN 08/11/21 [History] Metoclopramide [Reglan] 5 mg PO W/BRKFST 08/11/21 [History] Metoprolol Succinate [Toprol XL] 50 mg PO HS 08/11/21 [History] SILVER sulfADIAZINE CREAM [Silvadene Cream] 1 applic TOPICAL DAILY PRN 08/11/21 [History] Follow up Appointment(s)/Referral(s): Karsten Wells MD [STAFF PHYSICIAN] - 1 Week [facility], [NON-STAFF] - Patient Instructions/Handouts: Heart Catheterization (GEN)
--- NOTE | 2021-09-08 16:55 | P.PN ---
Progress Note - Text Progress Note Date: 09/08/21 Family called with condolences expressed to son Silvano.
--- NOTE | 2021-09-10 23:56 | P.PN ---
Subjective Progress Note Date: 09/03/21 Principal diagnosis: Bacteremia Patient is a 71-year-old male admitted to the hospital about a week ago for evaluation of bleeding per rectum and weakness the patient did have a right groin central line with the patient was noticed to have some purulent drainage which has been discontinued blood culture positive with multiple pathogen. The patient has pulled out his PICC line and followed by his midline, patient did have a CT of abdominal pelvis completed 08/30/2021 with evidence of pneumoperitoneum, patient was taken to the OR however was considered to be unstable for surgery again this morning On today's evaluation is 09/03/2021, patient remains to beafebrile, the patient is sedated on the vent, patient is requiring pressor support to maintain his blood pressure however slightly decreased amount of pressure per the nursing staff, no significant purulent secretion through the ET or any other changes reported by the nursing staff Objective - Vital Signs Vital signs: Vital Signs Temp 97.9 F 09/03/21 12:00 Pulse 96 09/03/21 13:00 Resp 23 09/03/21 13:00 BP 98/50 09/03/21 07:00 Pulse Ox 92 L 09/03/21 13:00 Intake & Output 09/02/21 09/03/21 09/03/21 17:59 06:59 18:59 Intake Total 875.386 Output Total 265 Balance 610.386 Weight Intake: IV 600 Piperacillin-Tazobactam 3 100 .375 gm In Sodium Chloride 0.9% 100 ml @ 25 mls/hr IVPB Q8H ASHLEY Rx#: [id number] Potassium Chloride 20 meq 100 In Water For Injection 1 100ml.bag @ 50 mls/hr IVPB ONCE ONE Rx#: [id number] Sodium Chloride 0.9% 1, 400 000 ml @ 100 mls/hr IV . Q10H [facility]SHLEY Rx#:[id number] Intake, IV Titration 275.386 Amount Amiodarone 450 mg In Dextrose 5% in Water 250 ml @ 0.5 MG/MIN 16.667 mls/hr IV .Q15H ASHLEY Rx#: [id number] Norepinephrine 8 mg In 175.386 Sodium Chloride 0.9% 250 ml @ 0.08 MCG/KG/MIN 19. 954 mls/hr IV .[id number] A[facility] Rx#:[id number] propofoL 1,000 mg In 100 Empty Bag 1 bag @ 5 MCG/ KG/MIN 3.885 mls/hr IV . Q24H [facility]LEY Rx#:[id number] Lipid Sodium Chloride 0.9% 1, 000 ml @ 100 mls/hr IV . Q10H ASHLEY Rx#:[id number] Output: Urine 265 Other: Voiding Method Indwelling Catheter ABP, PAP, CO, CI - Last Documented Arterial Blood Pressure 105/54 - Exam GENERAL DESCRIPTION: An elderly male intubated on the vent RESPIRATORY SYSTEM: Unlabored breathing , decreased breath sounds at bases HEART: S1 S2 regular rate and rhythm , ABDOMEN: Soft , mild distention EXTREMITIES: Bilateral lower extremity are currently wrapped no drainage on the dressing - Labs CBC & Chem 7: 09/04/21 04:35 09/04/21 04:35 Labs: Abnormal Lab Results - Last 24 Hours (Table) 09/02/21 09/03/21 09/03/21 Range/Units 23:13 04:10 04:10 WBC (3.8-10.6) k/uL RBC (4.30-5.90) m/uL Hgb (13.0-17.5) gm/dL Hct (39.0-53.0) % MCV (80.0-100.0) fL MCHC (31.0-37.0) g/dL RDW (11.5-15.5) % Neutrophils # (Manual) (1.3-7.7) k/uL Metamyelocytes # (Man) (0) k/uL Myelocytes # (Manual) (0) k/uL Nucleated RBCs (0-0) /100 WBC ABG pH (7.35-7.45) ABG pO2 (83-108) mmHg ABG HCO3 (21-25) mmol/L ABG O2 Saturation (94-97) % Chloride 116 H (98-107) mmol/L Carbon Dioxide 19 L (22-30) mmol/L BUN 66 H (9-20) mg/dL Creatinine 3.70 H (0.66-1.25) mg/dL Glucose 109 H (74-99) mg/dL POC Glucose (mg/dL) 109 H (75-99) mg/dL Calcium 7.3 L (8.4-10.2) mg/dL C-Reactive Protein 49.5 H (<1.0) mg/dL Procalcitonin 3.82 H (0.02-0.09) ng/mL 09/03/21 09/03/21 Range/Units 04:10 06:02 WBC 17.2 H (3.8-10.6) k/uL RBC 2.51 L (4.30-5.90) m/uL Hgb 7.4 L (13.0-17.5) gm/dL Hct 25.6 L (39.0-53.0) % MCV 102.1 H (80.0-100.0) fL MCHC 28.8 L (31.0-37.0) g/dL RDW 17.1 H (11.5-15.5) % Neutrophils # (Manual) 14.90 H (1.3-7.7) k/uL Metamyelocytes # (Man) 0.34 H (0) k/uL Myelocytes # (Manual) 0.34 H (0) k/uL Nucleated RBCs 2 H (0-0) /100 WBC ABG pH 7.29 L (7.35-7.45) ABG pO2 65 L (83-108) mmHg ABG HCO3 19 L (21-25) mmol/L ABG O2 Saturation 90.5 L (94-97) % Chloride (98-107) mmol/L Carbon Dioxide (22-30) mmol/L BUN (9-20) mg/dL Creatinine (0.66-1.25) mg/dL Glucose (74-99) mg/dL POC Glucose (mg/dL) (75-99) mg/dL Calcium (8.4-10.2) mg/dL C-Reactive Protein (<1.0) mg/dL Procalcitonin (0.02-0.09) ng/mL Assessment and Plan (1) Bacteremia Status: Acute Code(s): R78.81 - BACTEREMIA SNOMED Code(s): 6250549 Plan: 1-Patient with polymicrobial bacteremia concern for right femoral central line which has been discontinued, , catheter tip cultures finalized his Proteus, blood culture positive for enterococcus Klebsiella and Proteus, groin culture with Proteus, patient repeat blood culture were negative on 08/17/2021, patient has completed his antibiotic therapy for his bacteremia, and daptomycin be discontinued 2-patient with perforated viscus concerning for secondary peritonitis , patient to continue while monitoring his clinical course closely prognosis remains to be guarded
== END 2021-09-04 12:28 | disposition expired | DRG 377 ==
LOC: EC 19:15 → 2SICU 22:05 → 3SCARD 08-12 09:34 → 2SICU 08-30 16:09
PROVIDERS: ADMIT Internal Medicine; ATTEND Internal Medicine
PROC: 30233N1 Transfusion of Nonautologous Red Blood Cells into Peripheral Vein, Percutaneous Approach (ICD-10-PCS; 2021-08-11)
PROC: 30233K1 Transfusion of Nonautologous Frozen Plasma into Peripheral Vein, Percutaneous Approach (ICD-10-PCS; 2021-08-11)
PROC: 4B02XSZ Measurement of Cardiac Pacemaker, External Approach (ICD-10-PCS; 2021-08-11)
PROC: 30283B1 Transfusion of Nonautologous 4-Factor Prothrombin Complex Concentrate into Vein, Percutaneous Approach (ICD-10-PCS; 2021-08-11)
PROC: 0DJ08ZZ Inspection of Upper Intestinal Tract, Via Natural or Artificial Opening Endoscopic (ICD-10-PCS; principal; 2021-08-14 08:10)
PROC: 0DJD8ZZ Inspection of Lower Intestinal Tract, Via Natural or Artificial Opening Endoscopic (ICD-10-PCS; 2021-08-16)
PROC: 5A09357 Assistance with Respiratory Ventilation, Less than 24 Consecutive Hours, Continuous Positive Airway Pressure (ICD-10-PCS; 2021-08-16)
PROC: 093K7ZZ Control Bleeding in Nasal Mucosa and Soft Tissue, Via Natural or Artificial Opening (ICD-10-PCS; 2021-08-21)
PROC: 02HV33Z Insertion of Infusion Device into Superior Vena Cava, Percutaneous Approach (ICD-10-PCS; 2021-08-22)
PROC: 05HB33Z Insertion of Infusion Device into Right Basilic Vein, Percutaneous Approach (ICD-10-PCS; 2021-08-28)
PROC: 0BH17EZ Insertion of Endotracheal Airway into Trachea, Via Natural or Artificial Opening (ICD-10-PCS; 2021-08-30)
PROC: 5A1955Z Respiratory Ventilation, Greater than 96 Consecutive Hours (ICD-10-PCS; 2021-08-30)
PROC: 3E043XZ Introduction of Vasopressor into Central Vein, Percutaneous Approach (ICD-10-PCS; 2021-08-30)
PROC: 4A133J1 Monitoring of Arterial Pulse, Peripheral, Percutaneous Approach (ICD-10-PCS; 2021-08-30)
PROC: 02HV33Z Insertion of Infusion Device into Superior Vena Cava, Percutaneous Approach (ICD-10-PCS; 2021-08-30)
PROC: 4A133B1 Monitoring of Arterial Pressure, Peripheral, Percutaneous Approach (ICD-10-PCS; 2021-08-30)
PROC: 03HY32Z Insertion of Monitoring Device into Upper Artery, Percutaneous Approach (ICD-10-PCS; 2021-08-30)
PROC: 0D9670Z Drainage of Stomach with Drainage Device, Via Natural or Artificial Opening (ICD-10-PCS; 2021-08-30)
DX: K57.31 Diverticulosis of large intestine without perforation or abscess with bleeding (principal); A41.59 Other Gram-negative sepsis; T80.211A Bloodstream infection due to central venous catheter, initial encounter; I21.A1 Myocardial infarction type 2; I50.43 Acute on chronic combined systolic (congestive) and diastolic (congestive) heart failure; R65.21 Severe sepsis with septic shock; N17.0 Acute kidney failure with tubular necrosis; J96.01 Acute respiratory failure with hypoxia; K63.1 Perforation of intestine (nontraumatic); D62 Acute posthemorrhagic anemia; I13.0 Hypertensive heart and chronic kidney disease with heart failure and stage 1 through stage 4 chronic kidney disease, or unspecified chronic kidney disease; E87.2 Acidosis; G93.40 Encephalopathy, unspecified; I48.21 Permanent atrial fibrillation; I87.331 Chronic venous hypertension (idiopathic) with ulcer and inflammation of right lower extremity; L97.212 Non-pressure chronic ulcer of right calf with fat layer exposed; J98.11 Atelectasis; L03.116 Cellulitis of left lower limb; L97.929 Non-pressure chronic ulcer of unspecified part of left lower leg with unspecified severity; K57.11 Diverticulosis of small intestine without perforation or abscess with bleeding; I27.20 Pulmonary hypertension, unspecified; J44.9 Chronic obstructive pulmonary disease, unspecified; I73.9 Peripheral vascular disease, unspecified; Z51.5 Encounter for palliative care; Z20.822 Contact with and (suspected) exposure to COVID-19; Z66 Do not resuscitate; E66.01 Morbid (severe) obesity due to excess calories; D69.6 Thrombocytopenia, unspecified; D63.1 Anemia in chronic kidney disease; K66.8 Other specified disorders of peritoneum; Z68.38 Body mass index [BMI] 38.0-38.9, adult; K22.70 Barrett's esophagus without dysplasia; K21.00 Gastro-esophageal reflux disease with esophagitis, without bleeding; N18.32 Chronic kidney disease, stage 3b; K44.9 Diaphragmatic hernia without obstruction or gangrene; B96.4 Proteus (mirabilis) (morganii) as the cause of diseases classified elsewhere; E78.5 Hyperlipidemia, unspecified; E83.42 Hypomagnesemia; E87.6 Hypokalemia; E78.00 Pure hypercholesterolemia, unspecified; G47.33 Obstructive sleep apnea (adult) (pediatric); G89.29 Other chronic pain; I25.10 Atherosclerotic heart disease of native coronary artery without angina pectoris; I25.2 Old myocardial infarction; I25.5 Ischemic cardiomyopathy; I49.3 Ventricular premature depolarization; I87.322 Chronic venous hypertension (idiopathic) with inflammation of left lower extremity; T50.1X5A Adverse effect of loop [high-ceiling] diuretics, initial encounter; Y84.8 Other medical procedures as the cause of abnormal reaction of the patient, or of later complication, without mention of misadventure at the time of the procedure; R04.0 Epistaxis; Z53.09 Procedure and treatment not carried out because of other contraindication; D50.9 Iron deficiency anemia, unspecified; K25.9 Gastric ulcer, unspecified as acute or chronic, without hemorrhage or perforation; K29.70 Gastritis, unspecified, without bleeding; H26.9 Unspecified cataract; K63.5 Polyp of colon; K59.00 Constipation, unspecified; H40.9 Unspecified glaucoma; K64.2 Third degree hemorrhoids; M10.9 Gout, unspecified; M47.816 Spondylosis without myelopathy or radiculopathy, lumbar region; Z79.01 Long term (current) use of anticoagulants; Z79.82 Long term (current) use of aspirin; Z79.899 Other long term (current) drug therapy; Z80.3 Family history of malignant neoplasm of breast; Z82.49 Family history of ischemic heart disease and other diseases of the circulatory system; Z87.442 Personal history of urinary calculi; Z45.010 Encounter for checking and testing of cardiac pacemaker pulse generator [battery]; Z95.5 Presence of coronary angioplasty implant and graft; Z90.89 Acquired absence of other organs; Z90.49 Acquired absence of other specified parts of digestive tract
CPT/HCPCS: 36410; 36415; 36556; 36573; 36600; 43235; 45378; 71045; 74019; 74176; 76937; 80048; 80053; 80076; 80202; 81001; 82330; 82533; 82565; 82805; 83605; 83735; 83880; 84100; 84145; 84443; 84484; 85025; 85027; 85384; 85610; 85652; 85730; 86140; 86850; 86900; 86901; 86920; 87040; 87070; 87077; 87186; 87205; 87635; 93005; 93306; 94002; 94003; 94640; 94760; 96361; 96374; 96375; 96376; 99291